=== PATIENT | female | born 1940 | race Caucasian/White ===

== ENCOUNTER 2023-02-16 10:55 | Outpatient (OUT) | payer MEDICARE, SELFPAY ==
[2023-02-16 11:47] LABS: Estimated Average Glucose 103 mg/dL; Glycohemoglobin A1C 5.2 % (4.5-6.2)
== END 2023-02-16 10:56 ==
LOC: LAB 11:02
PROVIDERS: PCP Family Medicine; Visit Provider Family Medicine
DX: E11.9 Type 2 diabetes mellitus without complications (principal)
CPT/HCPCS: 36415; 83036

== ENCOUNTER 2023-07-22 10:22 | Outpatient (OUT) | payer MEDICARE, SELFPAY ==
[2023-07-22 10:54] LABS: Bilirubin Urine NEGATIVE (NEGATIVE); Blood Urine NEGATIVE (NEGATIVE); Clarity Urine CLEAR (CLEAR); Color Urine LT. YELLOW (YELLOW); Glucose Urine UA NEGATIVE (NEGATIVE); Ketones Urine NEGATIVE (NEGATIVE); Leukocyte Esterase Urine SMALL (NEGATIVE); Nitrite Urine NEGATIVE (NEGATIVE); Protein Urine NEGATIVE (NEG/TRACE); Specific Gravity Urine >=1.030 (1.005-1.025); Urobilinogen Urine 0.2 EU/dL (0.2-1.0); pH Urine 5.5 (5.0-9.0)
[2023-07-22 10:54] LABS: Basophils Absolute Auto 0.1 10^3/uL (0.0-0.1); Basophils Percent Auto 0.8 % (0.2-2.0); Eosinophils Absolute Auto 0.6 10^3/uL (0.0-0.7); Eosinophils Percent Auto 9.2 % (0.9-7.0); Hematocrit 33.1 % (36.0-48.0); Hemoglobin 10.9 g/dL (12.0-16.0); Immature Granulocytes Abs Auto 0.03 10^3/uL (0.00-0.03); Immature Granulocytes Pct Auto 0.5 % (0.0-0.5); Lymphocytes Absolute Auto 1.7 10^3/uL (1.2-3.8); Lymphocytes Percent Auto 25.3 % (20.5-60.0); Mean Corpuscular HGB Conc 32.9 g/dL (29.9-35.2); Mean Corpuscular Hemoglobin 30.7 pg (26.7-34.0); Mean Corpuscular Volume 93.2 fL (81.0-99.0); Mean Platelet Volume 9.7 fL (9.5-13.5); Monocytes Absolute Auto 0.7 10^3/uL (0.3-0.8); Monocytes Percent Auto 11.1 % (1.7-12.0); Neutrophils Absolute Auto 3.5 10^3/uL (1.4-6.5); Neutrophils Percent Auto 53.1 % (43.0-75.0); Platelet Count 272 10^3/uL (150-450); Red Blood Count 3.55 10^6/uL (4.20-5.40); Red Cell Distribution Width 12.8 % (11.0-15.0); White Blood Count 6.5 10^3/uL (4.0-11.0)
[2023-07-22 11:05] LABS: Microalbumin Urine Random 4.7 mg/dL (<=30.0)
[2023-07-22 11:07] LABS: Estimated Average Glucose 103 mg/dL; Glycohemoglobin A1C 5.2 % (4.5-6.2)
[2023-07-22 11:08] LABS: Bacteria Urine TRACE #/HPF (NONE SEEN); Cast Seen? NONE SEEN #/LPF (NONE SEEN); Crystals Seen? None Seen #/HPF (None Seen); Mucus Urine NONE SEEN (NONE SEEN); RBC Urine 0-2 #/HPF (0-2); Squamous Epithelial Cell Urine RARE #/LPF (NONE/RARE)
[2023-07-22 11:09] LABS: Alanine Aminotransferase 27 U/L (14-59); Albumin Level 3.5 g/dL (3.4-5.0); Alkaline Phosphatase 68 U/L (46-116); Anion Gap 13.6; Aspartate Amino Transferase 18 U/L (15-37); BUN Creatinine Ratio 22.7; Bilirubin Total 0.3 mg/dL (0.2-1.0); Calcium 8.5 mg/dL (8.5-10.1); Carbon Dioxide 29.6 mmol/L (21.0-32.0); Chloride 103 mmol/L (98-107); Chol HDL Ratio 3.1; Cholesterol 251 mg/dL (<=200); Estimated GFR (African America 40 (>=60); Estimated GFR (Non-African Ame 33 (>=60); Globulin 3.6 g/dL; Glucose 98 mg/dL (74-106); HDL Cholesterol 82 mg/dL (40-60); Potassium 4.2 mmol/L (3.5-5.1); Sodium 142 mmol/L (136-145); Total Protein 7.1 g/dL (6.4-8.2); Triglycerides 51 mg/dL (<=150); VLDL CHOLESTEROL 10.2 mg/dL
== END 2023-07-22 10:23 | disposition home or self-care (01) ==
LOC: LAB 10:26
PROVIDERS: PCP Nurse Practitioner; Visit Provider Nurse Practitioner
DX: E11.9 Type 2 diabetes mellitus without complications (principal); I10 Essential (primary) hypertension; M54.50 Low back pain, unspecified; Z79.1 Long term (current) use of non-steroidal anti-inflammatories (NSAID)
CPT/HCPCS: 36415; 80053; 80061; 81001; 82043; 83036; 85025

== ENCOUNTER 2024-03-01 07:57 | Outpatient (OUT) | payer MEDICARE, SELFPAY ==
--- OUTSIDE RECORDS SUMMARY | 2024-03-01 08:03 | XMS_ITS | CCD ---
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 Role Phone REQUEST, DR NONE LISTED Admitting Unavaila ble REQUEST, NONE LISTED Consulting Unavaila ble REQUEST, DR PARIKH LISTED Attending Unavaila ble HOUSE, DR PINZON Primary Care Unavailable ROBERT, DEANGELO Admitting Unavailable HOUSE, DR PINZON Primary Care Unavailable ROBERT, DEANGELO Consulting Unavailable ROBERT, DEANGELO Attending Unavailable HOWIE, JUAN Andrew Consulting Unavailable HOUSE, DR PINZON Primary Care Unavailable HOWIE, JUAN Andrew Attending Unavailable HOWIE, JUAN Andrew Admitting Unavailable GREESE, MELI HERRERA Consulting Unavailable CLINTON, WILEY Attending Unavailable HOUSE, DR PINZON Primary Care Unavailable CLINTON, WILEY Admitting Unavailable FEDERICO, BRITTANI Consulting Unavailable CLINTON, WILEY Consulting Unavailable Evans, Jeremiah Consulting Unavailable HOUSE, DR PINZON Attending Unavailable HOUSE, DR PINZON Admitting Unavailable HOUSE, DR PINZON Primary Care Unavailable HOUSE, DR PINZON Consulting Unavailable REQUEST, NONE LISTED Admitting Unavaila ble REQUEST, DR PARIKH LISTED Consulting Unavaila ble REQUEST, DR PARIKH LISTED Attending Unavaila ble HOUSE, DR PINZON Primary Care Unavailable CLAUDIAHMEGHANA, JAYCOB Attending Unavailable AICHMEGHANA, JAYCOB Attending Unavailable PETITTI, WILLARD Marcano Attending Unavailable Allergies Allergy Classification Reported Allergen(s) Allergy Type Date of Onset Reaction(s) Facility (1 source) Adhesive agent Drug allergy (disorder) 07-02-2014 [facility] Repository Problems Active Problems Problem Classification Problem Date Documented Da te Episodic/Chronic Diabetes mellitus without complication (1 source) 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s; Translations: [TYPE 2 DM WITHOUT COMPLICATIONS] Onset: 02-18-2021 Chronic Essential hypertension (1 source) Essential (primary) hypertension; Translations: [ESSENTIAL PRIMARY HYPERTENSION] Onset: 02-18-2021 Chronic Immunizations and screening for infectious disease (4 sources) Encounter for immunization; Translations: [ENCOUNTER FOR IMMUNIZATION] Onset: 07-15-2021 Episodic Spondylosis; intervertebral disc disorders; other back problems (1 source) Spondylosis without myelopathy or radiculopathy, lumbar region; Translations: [SPONDYLS W/O MYELO-/RADICULOP LUMB] Onset: 02-18-2021 Chronic Past or Other Problems Problem Classification Problem Date Documented Da te Episodic/Chronic Abdominal pain (1 source) Unspecified abdominal pain; Translations: [UNSPECIFIED ABDOMINAL PAIN] Onset: 02-18-2021 Episodic Fluid and electrolyte disorders (1 source) Dehydration; Translations: [DEHYDRATION] Onset: 02-18-2021 Episodic Genitourinary symptoms and ill-defined conditions (1 source) Personal history of urinary (tract) infections; Translations: [PERS HX URINARY TRACT INFECTIONS] Onset: 02-21-2021 Episodic Malaise and fatigue (1 source) Weakness; Translations: [WEAKNESS] Onset: 02-18-2021 Episodic Other aftercare (1 source) care home (current) use of aspirin; Translations: [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 USE OF ASPIRIN] Onset: 02-18-2021 Episodic Other aftercare (1 source) Other chcf (current) drug therapy; Translations: [OTH 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 DRUG THERAPY] Onset: 02-18-2021 Episodic Other aftercare (1 source) 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; Translations: [SENIOR CARE USE ORAL HYPOGLYCEMIC DX] Onset: 02-18-2021 Episodic Other gastrointestinal disorders (3 sources) Diarrhea, unspecified; Translations: [DIARRHEA UNSPECIFIED] Onset: 02-19-2021 Episodic Residual codes; unclassified (1 source) Acquired absence of other specified parts of digestive tract; Translations: [ACQ ABSENCE OTH PART DIGESTV TRACT] Onset: 02-18-2021 Episodic Residual codes; unclassified (1 source) Acquired absence of both cervix and uterus; Translations: [ACQUIRED ABSENCE BOTH CERVIX AND UTERUS] Onset: 02-18-2021 Episodic Urinary tract infections (5 sources) Urinary tract infection, site not specified; Translations: [UTI SITE NOT SPECIFIED] Onset: 02-18-2021 Episodic Viral infection (1 source) Viral infection, unspecified; Translations: [VIRAL INFECTION UNSPECIFIED] Onset: 02-21-2021 Episodic Results Test Name Value Interpretation Reference Range Facil ity CULTURE URINEon 03-11-2021 CULTURE URINE Culture Observations : LIGHT GROWTH OF MIXED GENITAL NASIR. NO POTENTIAL PATHOGENS SEEN. Normal [facility] Comment on above: Performed By: #### C BC #### [facility] [address] [place] [address] Justina Jovita UA RANDOM W/MICROSCOPICon BACTERIA TRACE Abnormal NONE SEEN [facility] Comment on above: Performed By: #### C BC #### [facility] [address] [place] [address] Justina Jovita Bilirubin Ql (U) Negative Normal NEGATIVE [facility] Comment on above: Performed By: #### C BC #### [facility] [address] [place] [address] Justina Jovita CAST NONE SEEN Normal NONE SEEN [facility] Comment on above: Performed By: #### C BC #### [facility] [address] [place] [address] Justina Jovita Clarity (U) SL CLOUDY Abnormal CLEAR [facility] Comment on above: Performed By: #### C BC #### [facility] [address] [place] [address] Justina Jovita Color (U) LT. YELLOW Normal YELLOW [facility] Comment on above: Performed By: #### C BC #### [facility] [address] [place] [address] Justina Jovita Crystals LM Nom (Urine sed) NONE SEEN Normal NONE SEEN [facility] Comment on above: Performed By: #### C BC #### [facility] [address] [place] [address] Justina Jovita Epithelial cells LM Ql (Urine sed) FEW Abnormal NONE SEEN /RARE [facility] Comment on above: Performed By: #### C BC #### [facility] [address] [place] [address] Justina Jovita Glucose Ql (U) Negative Normal NEGATIVE [facility] Comment on above: Performed By: #### C BC #### [facility] [address] [place] [address] Justina Jovita Hemoglobin Ql (U) Negative Normal NEGATIVE [facility] Comment on above: Performed By: #### C BC #### [facility] [address] [place] [address] Justina Jovita Ketones Ql (U) Negative Normal NEGATIVE [facility] Comment on above: Performed By: #### C BC #### [facility] [address] [place] [address] Justina Jovita LEUKOCYTES SMALL Abnormal NEGATIVE [facility] Comment on above: Performed By: #### C BC #### [facility] [address] [place], [place] [address] Justina Jovita MUCOUS SMALL Abnormal NONE SEEN [facility] Comment on above: Performed By: #### C BC #### [facility] [address] [place] [address] Justina Jovita Nitrite Ql (U) Negative Normal NEGATIVE [facility] Comment on above: Performed By: #### C BC #### [facility] [address] [place] [address] Justina Jovita pH (U) 6.5 [pH] Normal 5-9 [facility] Comment on above: Performed By: #### C BC #### [facility] [address] [place] [address] Justina Jovita RBC 0-2 Normal 0-2 [facility] Comment on above: Performed By: #### C BC #### [facility] [address] [place] [address] Justina Jovita SPEC GRAVITY 1.020 Normal 1.005-<=1.025 [facility] Comment on above: Performed By: #### C BC #### [facility] [address] [place] [address] Justina Jovita UA PROTEIN Negative Normal NEGATIVE/ TRACE [facility] Comment on above: Performed By: #### C BC #### [facility] [address] [place] [address] Justina Jovita Urobilinogen Qn (U) 0.2 {Juan'U}/dL Normal 0.2 - 1. 0 [facility] Comment on above: Performed By: #### C BC #### [facility] [address] [place] [address] Justina Jovita WBC 5-10 Abnormal NONE SEEN [facility] Comment on above: Performed By: #### C BC #### [facility] [address] [place], [place] [address] Justina Jovita CBC AUTO DIFFon 02-19-2021 BASO # 0.0 103/ul Normal 0.0-0.1 [facility] Comment on above: Performed By: #### C BC #### [facility] [address] [place] [id number] Justina Jovita Basophils/100 WBC (Bld) 0.6 % Normal 0.2-2.0 [facility] Comment on above: Performed By: #### C BC #### [facility] [address] [place] [id number] Justina Jovita EO # 0.0 103/ul Normal 0.0-0.7 [facility] Comment on above: Performed By: #### C BC #### [facility] [address] [place], [place] [address] Justina Jovita Eosinophils/100 WBC (Bld) 0.8 % Critically low 0.9-7.0 [facility] Comment on above: Performed By: #### C BC #### [facility] [address] [id number] Justina Jovita Erythrocyte distribution width (RBC) [Ratio] 13.3 % Normal 11.0-15.0 [facility] Comment on above: Performed By: #### C BC #### [facility] [address] [place], [place] [address] Justina Jovita Hematocrit (Bld) [Volume fraction] 37.4 % Normal 36.0-48.0 [facility] Comment on above: Performed By: #### C BC #### [facility] [address] [id number] Justina Jovita Hemoglobin (Bld) [Mass/Vol] 12.7 g/dL Normal 12.0-16.0 [facility] Comment on above: Performed By: #### C BC #### [facility] [address] [place] [address] Justina Jovita IG # 0.02 10e3/ul Normal 0.00-0.03 [facility] Comment on above: Performed By: #### C BC #### [facility] [address] [id number] Justina Jovita IG % 0.4 % Normal 0.0-0.5 [facility] Comment on above: Performed By: #### C BC #### [facility] [address] [id number] Justina Jovita LYMPH # 0.7 103/ul Critically low 1.2-3.8 [facility] Comment on above: Performed By: #### C BC #### [facility] [address] [place], [place] [address] Justina Jovita Lymphocytes/100 WBC (Bld) 14.1 % Critically low 20.5-60.0 [facility] Comment on above: Performed By: #### C BC #### [facility] [address] [place], [place] [address] Justina Jovita MANUAL DIFF REQ NO Normal [facility] Comment on above: Performed By: #### C BC #### [facility] [address] [place], [place] [address] Justina Jovita MCH (RBC) [Entitic mass] 29.1 pg Normal 26.7-34.0 [facility] Comment on above: Performed By: #### C BC #### [facility] [address] [place], [place] [address] Justinajoselyn Hussein MCHC (RBC) [Mass/Vol] 34.0 g/dL Normal 29.9-35.2 [facility] Comment on above: Performed By: #### C BC #### [facility] [address] [place], [place] [address] Justina Jovita MCV (RBC) [Entitic vol] 85.6 fL Normal 81.0-99.0 [facility] Comment on above: Performed By: #### C BC #### [facility] [address] [place] [address] Justina Jovita MONO # 0.4 103/ul Normal 0.3-0.8 [facility] Comment on above: Performed By: #### C BC #### [facility] [address] [id number] Justina Jovita Monocytes/100 WBC (Bld) 7.4 % Normal 1.7-12.0 [facility] Comment on above: Performed By: #### C BC #### [facility] [address] [place], [place] [address] Justina Jovita NEUT # 3.8 103/ul Normal 1.4-6.5 [facility] Comment on above: Performed By: #### C BC #### [facility] [address] [place], [place] [address] Justina Jovita Neutrophils/100 WBC (Bld) 76.7 % Critically high 43.0-75.0 [facility] Comment on above: Performed By: #### C BC #### [facility] [address] [place], [place] [address] Justinajoselyn Chairezen Platelet mean volume (Bld) [Entitic vol] 9.5 fL Normal 9.5-13.5 [facility] Comment on above: Performed By: #### C BC #### [facility] [address] [place], [place] [address] Justina Jovita PLT 259 103/ul Normal 150-450 [facility] Comment on above: Performed By: #### C BC #### [facility] [address] [place], [place] [address] Justina Jovita RBC 4.37 106/ul Normal 4.20-5.40 [facility] Comment on above: Performed By: #### C BC #### [facility] [address] [place], [place] [address] Justina Jovita WBC 5.0 103/ul Normal 4.0-11.0 [facility] Comment on above: Performed By: #### C BC #### [facility] [address] [place], [place] [address] Justina Jovita ER URINE PROFILEon 1 Bilirubin Ql (U) Negative Normal NEGATIVE [facility] Comment on above: Performed By: #### E RUR #### [facility] [address] [place], [place] [address] Justina Jovita Clarity (U) CLEAR Normal CLEAR [facility] Comment on above: Performed By: #### E RUR #### [facility] [address] [place], [place] [address] Justina Jovita Color (U) LT. YELLOW Normal YELLOW [facility] Comment on above: Performed By: #### E RUR #### [facility] [address] [place], [place] [address] Justina Jovita ERUAHD A micrscopic examination will be performed if indicated. Normal [facility] Comment on above: Performed By: #### E RUR #### [facility] [address] [place] [address] Justina Jovita Glucose Ql (U) Negative Normal NEGATIVE [facility] Comment on above: Performed By: #### E RUR #### [facility] [address] [place] [address] Justina Jovita Hemoglobin Ql (U) Negative Normal NEGATIVE [facility] Comment on above: Performed By: #### E RUR #### [facility] [address] [place] [address] Justina Jovita Ketones Ql (U) TRACE Abnormal NEGATIVE [facility] Comment on above: Performed By: #### E RUR #### [facility] [address] [place] [address] Justina Jovita LEUKOCYTES Negative Normal NEGATIVE [facility] Comment on above: Performed By: #### E RUR #### [facility] [address] [place] [address] Justina Jovita Nitrite Ql (U) Negative Normal NEGATIVE [facility] Comment on above: Performed By: #### E RUR #### [facility] [address] [place] [address] Justina Jovita pH (U) 5.0 [pH] Normal 5-9 [facility] Comment on above: Performed By: #### E RUR #### [facility] [address] [place] [address] Justina Jovita SPEC GRAVITY >=1.030 Abnormal 1.005-<=1.025 [facility] Comment on above: Performed By: #### E RUR #### [facility] [address] [id number] Justina Jovita UA PROTEIN Negative Normal NEGATIVE/ TRACE [facility] Comment on above: Performed By: #### E RUR #### [facility] [address] [place], [place] [address] Justina Jovita UR MICRO IND NOT INDICATED Normal [facility] Comment on above: Performed By: #### E RUR #### [facility] [address] [place], [place] [address] Justina Jovita Urobilinogen Qn (U) 0.2 {Juan'U}/dL Normal 0.2 - 1. 0 [facility] Comment on above: Performed By: #### E RUR #### [facility] [address] [place], [place] [address] Justina Jovita PROF CHEM 8 (BAS METB)on Anion gap [Moles/Vol] 15.2 mmol/L Normal [facility] Comment on above: Performed By: #### B MP #### [facility] [address] [place], [place] [address] Justina Jovita Calcium [Mass/Vol] 9.3 mg/dL Normal 8.4-10.2 [facility] Comment on above: Performed By: #### B MP #### [facility] [address] [place] [address] Justina Jovita Chloride [Moles/Vol] 102 mmol/L Normal 98-107 [facility] Comment on above: Performed By: #### B MP #### [facility] [address] [place] [address] Justina Jovita CO2 [Moles/Vol] 28.5 mmol/L Normal 22.0-30.0 [facility] Comment on above: Performed By: #### B MP #### [facility] [address] [place], [place] [address] Justina Jovita Creatinine [Mass/Vol] 1.35 mg/dL Critically high 0.52-1.04 [facility] Comment on above: Performed By: #### B MP #### [facility] [address] [id number] Justina Jovita EGFR-AF PANAMANIAN 46 mL/min/1.73m2 Critically low >=60 [facility] Comment on above: Performed By: #### B MP #### [facility] [address] [address] Justina Jovita EGFR-NON AF PANAMANIAN 38 mL/min/1.73m2 Critically low >=60 [facility] Comment on above: Performed By: #### B MP #### [facility] [address] [id number] Justina Jovita Glucose [Mass/Vol] 121 mg/dL Critically high 74-106 [facility] Comment on above: Performed By: #### B MP #### [facility] [address] [place] [address] Justina Jovita Potassium [Moles/Vol] 3.7 mmol/L Normal 3.4-5.0 [facility] Comment on above: Performed By: #### B MP #### [facility] [address] [place] [address] Justina Jovita Sodium [Moles/Vol] 142 mmol/L Normal 137-145 [facility] Comment on above: Performed By: #### B MP #### [facility] [address] [place], [place] [address] Justina Jovita Urea nitrogen [Mass/Vol] 12.0 mg/dL Normal 7.0-17.0 [facility] Comment on above: Performed By: #### B MP #### [facility] [address] [id number] Justina Jovita Urea nitrogen/Creatinine [Mass ratio] 8.9 mg/mg Normal [facility] Comment on above: Performed By: #### B MP #### [facility] [address] [place], [place] [address] Justina Jovita CBC AUTO DIFFon 02-16-2021 BASO # 0.0 103/ul Normal 0.0-0.1 [facility] Comment on above: Performed By: #### C BC #### [facility] [address] [place], [place] [address] Justina Jovita Basophils/100 WBC (Bld) 0.6 % Normal 0.2-2.0 [facility] Comment on above: Performed By: #### C BC #### [facility] [address] [place] [address] Justina Jovita EO # 0.1 103/ul Normal 0.0-0.7 [facility] Comment on above: Performed By: #### C BC #### [facility] [address] [place] [address] Justina Jovita Eosinophils/100 WBC (Bld) 1.8 % Normal 0.9-7.0 [facility] Comment on above: Performed By: #### C BC #### [facility] [address] [place] [address] Justina Jovita Erythrocyte distribution width (RBC) [Ratio] 13.3 % Normal 11.0-15.0 [facility] Comment on above: Performed By: #### C BC #### [facility] [address] [place] [address] Justina Jovita Hematocrit (Bld) [Volume fraction] 37.7 % Normal 36.0-48.0 [facility] Comment on above: Performed By: #### C BC #### [facility] [address] [place] [address] Justina Jovita Hemoglobin (Bld) [Mass/Vol] 13.0 g/dL Normal 12.0-16.0 [facility] Comment on above: Performed By: #### C BC #### [facility] [address] [place] [address] Justina Jovita IG # 0.02 10e3/ul Normal 0.00-0.03 [facility] Comment on above: Performed By: #### C BC #### [facility] [address] [place] [address] Justina Jovita IG % 0.3 % Normal 0.0-0.5 [facility] Comment on above: Performed By: #### C BC #### [facility] [address] [place] [address] Justina Jovita LYMPH # 1.5 103/ul Normal 1.2-3.8 [facility] Comment on above: Performed By: #### C BC #### [facility] [address] [place], [place] [address] Justina Jovita Lymphocytes/100 WBC (Bld) 23.4 % Normal 20.5-60.0 [facility] Comment on above: Performed By: #### C BC #### [facility] [address] [place], [place] [address] Justina Jovita MANUAL DIFF REQ NO Normal [facility] Comment on above: Performed By: #### C BC #### [facility] [address] [place], [place] [address] Justina Jovita MCH (RBC) [Entitic mass] 29.5 pg Normal 26.7-34.0 [facility] Comment on above: Performed By: #### C BC #### [facility] [address] [place] [address] Justinajoselyn Chairezen [facility] (RBC) [Mass/Vol] 34.5 g/dL Normal 29.9-35.2 [facility] Comment on above: Performed By: #### C BC #### [facility] [address] [place], [place] [address] Justina Jovita MCV (RBC) [Entitic vol] 85.5 fL Normal 81.0-99.0 [facility] Comment on above: Performed By: #### C BC #### [facility] [address] [place], [place] [address] Justina Jovita MONO # 0.7 103/ul Normal 0.3-0.8 [facility] Comment on above: Performed By: #### C BC #### [facility] [address] [place], [place] [address] Justina Jovita Monocytes/100 WBC (Bld) 10.3 % Normal 1.7-12.0 [facility] Comment on above: Performed By: #### C BC #### [facility] [address] [place] [address] Justina Jovita NEUT # 4.2 103/ul Normal 1.4-6.5 [facility] Comment on above: Performed By: #### C BC #### [facility] [address] [place], [place] [address] Justina Hussein Neutrophils/100 WBC (Bld) 63.6 % Normal 43.0-75.0 [facility] Comment on above: Performed By: #### C BC #### [facility] [address] [place], [place] [address] Justina Hussein Platelet mean volume (Bld) [Entitic vol] 9.9 fL Normal 9.5-13.5 [facility] Comment on above: Performed By: #### C BC #### [facility] [address] [place], [place] [address] Ujstinajoselyn Chairezen PLT 338 103/ul Normal 150-450 [facility] Comment on above: Performed By: #### C BC #### [facility] [address] [place] [address] Justina Jovita RBC 4.41 106/ul Normal 4.20-5.40 [facility] Comment on above: Performed By: #### C BC #### [facility] [address] [place] [address] Justina Hussein WBC 6.6 103/ul Normal 4.0-11.0 [facility] Comment on above: Performed By: #### C BC #### [facility] [address] [place] [address] ABD/PELVIS WO CONon 02-16 CT ABD/PELVIS WO CON CT ABDOMEN AND PELVIS WITHOUT CONTRAST: INDICATION: General weakness, nausea vomiting and diarrhea. COMPARISON: None. TECHNIQUE: Helical CT images of the abdomen and pelvis were obtained without intravenous contrast. Dose reduction techniques were achieved by using automated exposure control and/or adjustment of mA and/or kV according to patient size and/or use of iterative reconstruction technique. FINDINGS: LOWER CHEST: Normal. LIVER: Mild intrahepatic biliary GALLBLADDER AND BILIARY SYSTEM: Status-post cholecystectomy. Dilated common bile duct measuring 14 mm. SPLEEN: Normal. PANCREAS: Normal. ADRENAL GLANDS: Normal. KIDNEYS AND URETERS: Mild bilateral renal cortical scarring but no hydronephrosis or stones. VASCULATURE: Diffuse atherosclerotic calcification of the abdominal aorta, iliac and femoral arteries. RETROPERITONEUM AND LYMPH NODES: Normal, with no lymphadenopathy. GASTROINTESTINAL TRACT/MESENTERY: Mild to moderate nonspecific gastric distention. Small diverticulum off the second portion of the duodenum measuring 11 mm. There are few loops of small bowel within the central abdomen which appear to show wall thickening although evaluation is limited due to lack of IV contrast. Normal mesentery/peritoneum. Status post appendectomy. BLADDER: Normal. REPRODUCTIVE SYSTEM: Normal uterus and adnexa. BODY WALL: Normal. BONES: Right hip arthroplasty in place. Severe degenerative changes of the left hip. Postsurgical changes compatible with posterior and interbody fusion at L3-L4 and laminectomy at L3. Severe degenerative changes of the lumbar spine. Right hip arthroplasty in place. IMPRESSION: 1. Limited due to lack of IV contrast but possible wall thickening involving loops of small bowel. Infectious or inflammatory enteritis cannot be excluded. 2. No other acute process. 3. Status post cholecystectomy with likely associated biliary ductal dilatation. 4. Small duodenal diverticulum. 5. Mild to moderate nonspecific gastric distention. 6. Extensive atherosclerotic calcification. Electronically authenticated by: BRITTANI CABALLERO Date: 2021-02-16 17:59 Normal [facility] CULTURE URINEon 02-16-2021 CULTURE URINE Culture Observations : LIGHT GROWTH OF MIXED GENITAL NASIR. NO POTENTIAL PATHOGENS SEEN. Normal [facility] Comment on above: Performed By: #### Farhan ENCARNACION #### [facility] [address] [place] [address] Justina Jovita ER URINE PROFILEon 1 Bilirubin Ql (U) Negative Normal NEGATIVE [facility] Comment on above: Performed By: #### DESIREE BRITO #### [facility] [address] [place] [address] Justina Jovita Clarity (U) CLEAR Normal CLEAR [facility] Comment on above: Performed By: #### DESIREE BRITO #### [facility] [address] [place] [address] Justina Jovita Color (U) YELLOW Normal YELLOW [facility] Comment on above: Performed By: #### DESIREE BRITO #### [facility] [address] [place] [address] Justina Jovita ERUAHD A micrscopic examination will be performed if indicated. Normal [facility] Comment on above: Performed By: #### DESIREE BRITO #### [facility] [address] [place] [address] Justina Jovita Glucose Ql (U) Negative Normal NEGATIVE [facility] Comment on above: Performed By: #### DESIREE BRITO #### [facility] [address] [place] [address] Justina Jovita Hemoglobin Ql (U) Negative Normal NEGATIVE [facility] Comment on above: Performed By: #### DESIREE BRITO #### [facility] [address] [place] [address] Justina Jovita Ketones Ql (U) Negative Normal NEGATIVE [facility] Comment on above: Performed By: #### DESIREE BRITO #### [facility] [address] [place] [address] Justina Jovita LEUKOCYTES SMALL Abnormal NEGATIVE [facility] Comment on above: Performed By: #### DESIREE BRITO #### [facility] [address] [place] [address] Justina Jovita Nitrite Ql (U) Negative Normal NEGATIVE [facility] Comment on above: Performed By: #### DESIREE BRITO #### [facility] [address] [place] [address] Justina Jovita pH (U) 5.0 [pH] Normal 5-9 [facility] Comment on above: Performed By: #### DESIREE BRITO #### [facility] [address] [place] [address] Justina Jovita SPEC GRAVITY >=1.030 Abnormal 1.005-<=1.025 [facility] Comment on above: Performed By: #### DESIREE BRITO #### [facility] [address] [place] [address] Justina Jovita UA PROTEIN Negative Normal NEGATIVE/ TRACE [facility] Comment on above: Performed By: #### DESIREE BRITO #### [facility] [address] [place] [address] Justina Jovita UR MICRO IND INDICATED Normal [facility] [place] [facility] Comment on above: Performed By: #### E DESIREE CROSS #### [facility] [address] [place] [address] Justina Hussein Urobilinogen Qn (U) 0.2 {Juan'U}/dL Normal 0.2 - 1. 0 [facility] Comment on above: Performed By: #### E DESIREE CROSS #### [facility] [address] [place] [address] Justina Hussein LACTATE/LACTIC ACIDon 2020 Lactate [Moles/Vol] 3.5 mmol/L Critically high 0.7-2.0 [facility] Comment on above: Result Comment: test repeated, critical value verified Performed By: #### L ACT #### [facility] [address] [place] [address] Justina Hussein Lactate [Moles/Vol] 3.7 mmol/L Critically high 0.7-2.0 [facility] Comment on above: Result Comment: test repeated, critical value verified Performed By: #### C BC #### [facility] [address] [place] [address] Justina Hussein LIPASEon 02-16-2021 Lipase [Catalytic activity/Vol] 173.0 U/L Normal 23.0-300.0 [facility] Comment on above: Performed By: #### C BC #### [facility] [address] [place] [address] Justina Hussein POINT OF CARE GLUCOSEon 02-04 Glucose [Mass/Vol] 187 mg/dL Critically high 74-106 [facility] Comment on above: Performed By: #### P OCGLUC #### [facility] [address] [place] [address] Justina Hussein PROF 14(COMP METB)on 021 Albumin [Mass/Vol] 4.4 g/dL Normal 3.5-5.0 [facility] Comment on above: Performed By: #### C BC #### [facility] [address] [place], [place] [address] Justina Jovita Albumin/Globulin [Mass ratio] 1.1 {ratio} Normal [facility] Comment on above: Performed By: #### C BC #### [facility] [address] [place] [place] [id number] Justina Jovita ALP [Catalytic activity/Vol] 51 U/L Normal 38-126 [facility] Comment on above: Performed By: #### C BC #### [facility] [address] [place], [place] [address] Justina Jovita ALT [Catalytic activity/Vol] 32 U/L Normal 9-52 [facility] Comment on above: Performed By: #### C BC #### [facility] [address] [place], [place] [address] Justina Jovita Anion gap [Moles/Vol] 14.8 mmol/L Normal [facility] Comment on above: Performed By: #### C BC #### [facility] [address] [place] [address] Justina Jovita AST [Catalytic activity/Vol] 40 U/L Critically high 14-36 [facility] Comment on above: Performed By: #### C BC #### [facility] [address] [place], [place] [address] Justina Jovita Bilirubin [Mass/Vol] 0.7 mg/dL Normal 0.2-1.3 [facility] Comment on above: Performed By: #### C BC #### [facility] [address] [place], [place] [address] Justina Jovita Calcium [Mass/Vol] 9.6 mg/dL Normal 8.4-10.2 [facility] Comment on above: Performed By: #### C BC #### [facility] [address] [place], [place] [address] Justina Jovita Chloride [Moles/Vol] 99 mmol/L Normal 98-107 [facility] Comment on above: Performed By: #### C BC #### [facility] [address] [place] [address] Justina Jovita CO2 [Moles/Vol] 29.3 mmol/L Normal 22.0-30.0 [facility] Comment on above: Performed By: #### C BC #### [facility] [address] [place], [place] [address] Justina Jovita Creatinine [Mass/Vol] 1.64 mg/dL Critically high 0.52-1.04 [facility] Comment on above: Performed By: #### C BC #### [facility] [address] [place], [place] [address] Justina Jovita EGFR-AF PANAMANIAN 36 mL/min/1.73m2 Critically low >=60 [facility] Comment on above: Performed By: #### C BC #### [facility] [address] [place], [place] [address] Justina Jovita EGFR-NON AF PANAMANIAN 30 mL/min/1.73m2 Critically low >=60 [facility] Comment on above: Performed By: #### C BC #### [facility] [address] [place], [place] [address] Justina Jovita Globulin (S) [Mass/Vol] 4.0 g/dL Normal [facility] Comment on above: Performed By: #### C BC #### [facility] [address] [place], [place] [address] Justina Jovita Glucose [Mass/Vol] 185 mg/dL Critically high 74-106 [facility] Comment on above: Performed By: #### C BC #### [facility] [address] [place], [place] [address] Justina Jovita Potassium [Moles/Vol] 4.1 mmol/L Normal 3.4-5.0 [facility] Comment on above: Performed By: #### C BC #### [facility] [address] [place], [place] [address] Justina Jovita Protein [Mass/Vol] 8.4 g/dL Critically high 6.1-8.2 [facility] Comment on above: Performed By: #### C BC #### [facility] [address] [place], [place] [address] Justina Jovita Sodium [Moles/Vol] 139 mmol/L Normal 137-145 [facility] Comment on above: Performed By: #### C BC #### [facility] [address] [place], [place] [address] Justina Hussein Urea nitrogen [Mass/Vol] 29.0 mg/dL Critically high 7.0-17.0 [facility] Comment on above: Performed By: #### C BC #### [facility] [address] [place], [place] [address] Justina Hussein Urea nitrogen/Creatinine [Mass ratio] 17.7 mg/mg Normal [facility] Comment on above: Performed By: #### C BC #### [facility] [address] [place], [place] [address] Justina Hussein PROTIMEon 02-16-2021 INR Coag (PPP) [Relative time] 1.05 {INR} Normal [facility] Comment on above: Performed By: #### P TT, PT #### [facility] [address] [place] [address] Justina Hussein INR GUIDELINES SEE BELOW Normal [facility] Comment on above: Result Comment: ROSELIA RED INR: 2.0 - 3.0 CONDITIONS NOT LISTED BELOW 2.5 - 3.5 FOR PROSTHETIC HEART VALVE REPLACEMENT 2.5 - 3.5 RECURRENT THROMBOSIS Performed By: #### P TT, PT #### [facility] [address] [place] [address] Justina Hussein PT Coag (PPP) [Time] 11.4 s Normal 9.0-11.6 [facility] Comment on above: Performed By: #### P TT, PT #### [facility] [address] [place] [address] Justina Hussein PTTon 02-16-2021 aPTT Coag (Bld) [Time] 24.1 s Normal 22.3-36.2 [facility] Comment on above: Performed By: #### P TT, PT #### [facility] [address] [place] [address] Justina Hussein TROPONIN, HIGH SENSITIVITYon 02-16-2021 HSTROP 6.2 pg/mL Normal 4.0-35.5 [facility] Comment on above: Result Comment: CUT- OFF POINTS HAVE BEEN ESTABLISHED BASED ON THE FOURTH UNIVERSAL DEFINITIONS OF MYOCARDIAL INFARCTION. THE UPPER REFERENCE LIMIT (URL) OF TROPONIN, DEFINED THE 99TH PERCENTILE OF cTnI DISTRIBUTION IN A REFERENCE POPULATION, HAS BEEN CONFIRMED THE DECISION THRESHOLD FOR NC DIAGNOSIS. Performed By: #### C BC #### [facility] [address] [place] [address] Justina Jovita URINE MICROSCOPIC ONLYon BACTERIA TRACE Abnormal NONE SEEN [facility] Comment on above: Performed By: #### LILIANA BRITORO #### [facility] [address] [place] [address] Justina Jovita Bacteria identified Cx Nom (U) INDICATED Normal [facility] Comment on above: Performed By: #### LILIANA BRITORO #### [facility] [address] [place] [address] Justina Jovita CAST SEEN Abnormal NONE SEEN [facility] Comment on above: Performed By: #### LILIANA BRITORO #### [facility] [address] [place] [address] Justina Jovita Crystals LM Nom (Urine sed) NONE SEEN Normal NONE SEEN [facility] Comment on above: Performed By: #### LILIANA BRITORO #### [facility] [address] [place] [address] Justina Jovita Epithelial cells LM Ql (Urine sed) FEW Abnormal NONE SEEN /RARE [facility] Comment on above: Performed By: #### LILIANA BRITORO #### [facility] [address] [place] [address] Justina Jovita MUCOUS NONE SEEN Normal NONE SEEN [facility] Comment on above: Performed By: #### LILIANA BRITORO #### [facility] [address] [place] [address] Justina Jovita RBC 2-5 Abnormal 0-2 [facility] Comment on above: Performed By: #### LILIANA BRITORO #### [facility] [address] [place] [address] Justina Jovita WBC 20-50 Abnormal NONE SEEN [facility] Comment on above: Performed By: #### LILIANA BRITORO #### [facility] [address] [place], [place] [address] Justina Hussein XR CHEST 2 Von 02-16-2021 XR CHEST 2 V EXAM: XR CHEST 2 V HISTORY: NAUSEA WITH VOMITING, UNSPECIFIED COMPARISON: None. TECHNIQUE: PA and lateral views FINDINGS: Lungs are clear. Cardiac silhouette is normal. No pleural effusion or pneumothorax. Degenerative changes both shoulders. No acute osseous findings. IMPRESSION: No acute process. Electronically authenticated by: JEREMIAH LAURA Date: 2021-02-16 17:49 Normal [facility] Encounters Encounter Date Encounter Type Care Provider Facility Start: 01-20-2024 End: 01-20-2024 ambulatory WILLARD MENENDEZ Not Available Start: 11-29-2023 End: 11-29-2023 ambulatory JAYCOB CURTIS Not Available Start: 10-26-2023 End: 10-26-2023 ambulatory JAYCOB KIRSTEN Not Available Start: 07-15-2021 End: 07-16-2021 ambulatory DEANGELO JONES Facility:[facility] Start: 03-11-2021 End: 03-12-[address] JEROMY INMAN Facility:[facility] Start: 02-19-2021 End: 02-19-2021 ambulatory JUAN DENISE Facility:[facility] Start: 02-16-2021 End: 02-16-2021 ambulatory MELI FREGOSO Facility:[facility] Start: 12-10-2020 End: 12-11-2020 ambulatory NONE LISTED REQUEST Facility:[facility] Start: 11-18-2020 End: 11-19-2020 ambulatory NONE LISTED REQUEST Facility:[facility] Payers Date Payer Category Payer Medicare [id number] 1961 Medicare [id number] 1961 Self-pay [id number] 1961 Unknown [id number] 1940 Unknown [id number] .. [id number] 1938 Unknown [id number] 10.22. [id number] 1938 Unknown [id number] 10.22.84 [id number] 1938 Unknown [id number] 2.16.84 [id number] 1938 Unknown [id number] 2.16.84 [id number] 1938 Unknown [id number] 2.16.84 [id number] Unknown [id number] 2.16.84 [id number] Unknown [id number] 2.16.84 [id number] Unknown [id number] 2.16.84 [id number] Summary Purpose Family History No Family History Records FoundNo Family History Records Found Advance Directives No Advanced Directives Records FoundNo Advanced Directives Records Found Additional Source Comments INFORMATION SOURCE (unrecogn ized section and content) DATE CREATED AUTHOR 08/11/2021 [facility] [place] [facility] DATE CREATED AUTHOR '[place] FAROOQ 01/22/2024 [facility] FOR RECORDS PERTAINING TO PATIENTS WHO ARE OR HAVE BEEN ENROLLED IN A CHEMICAL DEPENDENCY/SUBSTANCEABUSE PROGRAM, SOME INFORMATION MAY BE OMITTED. This clinical summary was aggregated from multiple sources. Caution should be exercised in using it in the provision of clinical care. This summary normalizes information from multiple sources, and as a consequence, information in this document may materially change the coding, format and clinical context of patient data. In addition, data may be omitted in some cases. CLINICAL DECISIONS SHOULD BE BASED ON THE PRIMARY CLINICAL RECORDS. [facility] [employer] provides no warranty or guarantee of the accuracy or completeness of information in this document.
[2024-03-01 08:43] LABS: Basophils Absolute Auto 0.1 10^3/uL (0.0-0.1); Basophils Percent Auto 0.7 % (0.2-2.0); Eosinophils Absolute Auto 0.4 10^3/uL (0.0-0.7); Hematocrit 35.6 % (36.0-48.0); Hemoglobin 12.2 g/dL (12.0-16.0); Immature Granulocytes Abs Auto 0.03 10^3/uL (0.00-0.03); Immature Granulocytes Pct Auto 0.4 % (0.0-0.5); Lymphocytes Absolute Auto 3.1 10^3/uL (1.2-3.8); Lymphocytes Percent Auto 41.2 % (20.5-60.0); Mean Corpuscular HGB Conc 34.3 g/dL (29.9-35.2); Mean Corpuscular Hemoglobin 29.7 pg (26.7-34.0); Mean Corpuscular Volume 86.6 fL (81.0-99.0); Mean Platelet Volume 10.5 fL (9.5-13.5); Monocytes Absolute Auto 0.7 10^3/uL (0.3-0.8); Monocytes Percent Auto 9.5 % (1.7-12.0); Neutrophils Absolute Auto 3.2 10^3/uL (1.4-6.5); Neutrophils Percent Auto 43.2 % (43.0-75.0); Platelet Count 352 10^3/uL (150-450); Red Blood Count 4.11 10^6/uL (4.20-5.40); Red Cell Distribution Width 13.4 % (11.0-15.0); White Blood Count 7.5 10^3/uL (4.0-11.0)
[2024-03-01 08:54] LABS: Creatinine Urine Random 412.63 mg/dL (20.00-300.00); Microalbum Creatinine Ratio Ur 9.9 mg/g (0.0-29.9); Microalbumin Urine Random 4.1 mg/dL (<=30.0)
[2024-03-01 08:56] LABS: Estimated Average Glucose 100 mg/dL; Glycohemoglobin A1C 5.1 % (4.5-6.2)
[2024-03-01 09:00] LABS: Alanine Aminotransferase 86 U/L (14-59); Albumin Globulin Ratio 1.2; Albumin Level 4.3 g/dL (3.4-5.0); Alkaline Phosphatase 110 U/L (46-116); Anion Gap 15.1; Aspartate Amino Transferase 35 U/L (15-37); BUN Creatinine Ratio 15.7; Bilirubin Total 0.6 mg/dL (0.2-1.0); Chloride 100 mmol/L (98-107); Chol HDL Ratio 2.3; Cholesterol 169 mg/dL (<=200); Estimated GFR (African America 19 (>=60); Estimated GFR (Non-African Ame 16 (>=60); Free T3 2.47 pg/mL (2.18-3.98); Globulin 3.5 g/dL; Glucose 112 mg/dL (74-106); HDL Cholesterol 72 mg/dL (40-60); Potassium 3.1 mmol/L (3.5-5.1); Sodium 139 mmol/L (136-145); Total Protein 7.8 g/dL (6.4-8.2); Triglycerides 106 mg/dL (<=150); VLDL CHOLESTEROL 21.2 mg/dL
[2024-03-01 09:03] LABS: Bilirubin Urine SMALL (NEGATIVE); Blood Urine NEGATIVE (NEGATIVE); Clarity Urine SL CLOUDY (CLEAR); Color Urine YELLOW (YELLOW); Glucose Urine UA NEGATIVE (NEGATIVE); Ketones Urine TRACE mg/dL (NEGATIVE); Leukocyte Esterase Urine SMALL (NEGATIVE); Nitrite Urine NEGATIVE (NEGATIVE); Protein Urine TRACE mg/dL (NEG/TRACE); Specific Gravity Urine >=1.030 (1.005-1.025); Urobilinogen Urine 0.2 EU/dL (0.2-1.0); pH Urine 5.5 (5.0-9.0)
[2024-03-01 09:04] LABS: Urine Microscopic Indicated YES
[2024-03-01 09:58] LABS: Bacteria Urine MODERATE #/HPF (NONE SEEN); Cast Seen? SEEN #/LPF (NONE SEEN); Crystals Seen? None Seen #/HPF (None Seen); Mucus Urine MODERATE (NONE SEEN); RBC Urine 0-2 #/HPF (0-2); Squamous Epithelial Cell Urine FEW #/LPF (NONE/RARE); Transitional Epi Cells Urine RARE #/LPF (NONE SEEN)
[2024-03-01 09:59] LABS: Hyaline Casts Urine FEW
[2024-03-01 10:00] LABS: Urine Culture Indicated YES
== END 2024-03-01 07:58 | disposition home or self-care (01) ==
LOC: LAB 07:59
PROVIDERS: PCP Nurse Practitioner; Visit Provider Nurse Practitioner
DX: E11.22 Type 2 diabetes mellitus with diabetic chronic kidney disease (principal); N18.32 Chronic kidney disease, stage 3b; R63.4 Abnormal weight loss; E78.49 Other hyperlipidemia; I12.9 Hypertensive chronic kidney disease with stage 1 through stage 4 chronic kidney disease, or unspecified chronic kidney disease; R82.90 Unspecified abnormal findings in urine
CPT/HCPCS: 36415; 80053; 80061; 81001; 82043; 82570; 83036; 84439; 84443; 84481; 85025; 87086

== ENCOUNTER 2024-05-05 09:46 | Outpatient (OUT) | payer MEDICARE, SELFPAY ==
--- OUTSIDE RECORDS SUMMARY | 2024-05-05 09:52 | XMS_ITS | CCD ---
Author Organization [facility] Care Team Providers Care Engineering Production Liaison Name Role Phone REQUEST, DR NONE LISTED Admitting Unavaila ble REQUEST, NONE LISTED Consulting Unavaila ble REQUEST, NONE LISTED Attending Unavaila ble HOUSE, DR PINZON Primary Care Unavailable ROBERT, DEANGELO Admitting Unavailable HOUSE, DR PINZON Primary Care Unavailable ROBERT, DEANGELO Consulting Unavailable ROBERT, DEANGELO Attending Unavailable HOWIE, JUAN Andrew Consulting Unavailable HOUSE, DR PINZON Primary Care Unavailable HOWIE, JUAN Andrew Attending Unavailable HOWIE, JUAN Andrew Admitting Unavailable ZENOBIA, MELI HERRERA Consulting Unavailable CLINTON, WILEY Attending Unavailable STORM, DR PINZON Primary Care Unavailable CLINTON, WILEY Admitting Unavailable FEDERICO, BRITTANI Consulting Unavailable CLINTON, WILEY Consulting Unavailable Evans, Jeremiah Consulting Unavailable HOUSE, DR PINZON Attending Unavailable HOUSE, DR PINZON Admitting Unavailable HOUSE, DR PINZON Primary Care Unavailable HOUSE, DR PINZON Consulting Unavailable REQUEST, NONE LISTED Admitting Unavaila ble REQUEST, NONE LISTED Consulting Unavaila ble REQUEST, NONE LISTED Attending Unavaila ble HOUSE, DR PINZON Primary Care Unavailable CAITLIN, TOMASA Marcano Referring Unavailable HOUSE, JEROMY Brown Primary Care Unavailable CAITLIN, TOMASA Marcano Attending Unavailable CAITLIN, TOMASA Marcano Referring Unavailable HOUSE, JEROMY Brown Primary Care Unavailable CAITLIN, TOMASA Marcano Referring Unavailable HOUSE, JEROMY Brown Primary Care Unavailable AICHHOLShailesh, JAYCOB Attending Unavailable AICHHOLZ, JAYCOB Attending Unavailable WILLARD MENENDEZ Attending Unavailable AICHHOLShailesh, JAYCOB Attending Unavailable CAITLIN, TOMASA Marcano Attending Unavailable CAITLIN, TOMASA Marcano Referring Unavailable ENEDINA PHELPS Attending Unavailable CAITLIN, TOMASA Marcano Referring Unavailable BRENNEN NAGEL Attending Unavailable AICHHOLShailesh, JAYCOB Attending Unavailable Allergies Allergy Classification Reported Allergen(s) Allergy Type Date of Onset Reaction(s) Facility (1 source) Adhesive agent Drug allergy (disorder) 4 [facility] Repository (1 source) Iodine; Translations: [IODINE] Drug Allergy 0 [facility] Repository (1 source) Pollen; Translations: [POLLEN EXTRACTS] Propensity to adverse reactions to drug (disorder) 0 [facility] Repository Problems Active Problems Problem Classification Problem Date Documented Da te Episodic/Chronic Diabetes mellitus without complication (2 sources) 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s; Translations: [TYPE 2 DM WITHOUT COMPLICATIONS] Onset: 02-18-2021 Chronic Essential hypertension (2 sources) Essential (primary) hypertension; Translations: [ESSENTIAL PRIMARY HYPERTENSION] [...] Onset: 02-18-2021 Episodic Other aftercare (1 source) half-way (current) use of aspirin; Translations: [OCCUPATIONAL HEALTH AND SAFETY ADVISER CURRENT USE OF ASPIRIN] Onset: 02-18-2021 Episodic Other aftercare (1 source) Other nursing home (current) drug therapy; Translations: [OTH SENIOR LIVING CURRENT DRUG THERAPY] Onset: 02-18-2021 Episodic Other aftercare (1 source) half-way (current) use of oral hypoglycemic drugs; Translations: [OCCUPATIONAL HEALTH AND SAFETY ADVISER USE ORAL HYPOGLYCEMIC DX] Onset: 02-18-2021 Episodic [...] Name Value Interpretation Reference Range Facil ity BASIC METABOLIC PANLon 04-21 Anion gap [Moles/Vol] 13 mmol/L Normal 5-15 [facility] Comment on above: Performed By: #### C BCA, BMP #### [facility] ([id number]) [address], [address] [place] [address] Calcium [Mass/Vol] 9.7 mg/dL Normal 8.5-10.5 [facility] Comment on above: Performed By: #### C BCA, BMP #### [facility] ([id number]) [address], [address] [place] [address] Chloride [Moles/Vol] 103 mmol/L Normal 98-109 [facility] Comment on above: Performed By: #### C BCA, BMP #### [facility] ([id number]) [address], [address] [place] [address] CO2 [Moles/Vol] 25 mmol/L Normal 22-32 [facility] Comment on above: Performed By: #### C BCA, BMP #### [facility] ([id number]) [address], [address] [place] [address] Creatinine [Mass/Vol] 1.43 mg/dL High 0.40-1.00 [facility] Comment on above: Result Comment: METH OD TRACEABLE TO IDMS STANDARD Performed By: #### C BCA, BMP #### [facility] ([id number]) [address], [address] [place] [address] GFR/1.73 sq M.predicted among non-blacks MDRD (S/P/Bld) [Vol rate/Area] 36 mL/min/{1.73_m2} Low >59 [facility] Comment on above: Result Comment: Reported eGFR is based on the CKD-EPI 2020 equation that does not use a race coefficient. Performed By: #### C BCA, BMP #### [facility] ([id number]) [address], [address] [place] [address] Glucose [Mass/Vol] 122 mg/dL High 65-99 [facility] Comment on above: Performed By: #### C BCA, BMP #### [facility] ([id number]) [address] [address] [place] [address] Potassium [Moles/Vol] 3.7 mmol/L Normal 3.5-5.0 [facility] Comment on above: Performed By: #### C BCA, BMP #### [facility] ([id number]) [address], [address] [place] [address] Sodium [Moles/Vol] 141 mmol/L Normal 134-146 [facility] Comment on above: Performed By: #### C BCA, BMP #### [facility] ([id number]) [address] [address] [place] [address] Urea nitrogen [Mass/Vol] 30 mg/dL High 5-27 [facility] Comment on above: Performed By: #### C BCA, BMP #### [facility] ([id number]) [address] [address] [place] [address] CBC AND AUTO DIFFon 04-21-20 24 ABSOLUTE BASOPHIL 0.1 X10E9/L Normal 0.0-0.2 [facility] Comment on above: Performed By: #### C BCA, BMP #### [facility] ([id number]) [address], [address] [place] [address] ABSOLUTE NEUTROPHIL 3.4 X10E9/L Normal 1.5-6.6 [facility] Comment on above: Performed By: #### C LARRY, BMP #### [facility] ([id number]) [address], [address] [place] [address] Basophils/100 WBC (Bld) 1.0 % Normal [facility] Comment on above: Performed By: #### C LARRY, BMP #### [facility] ([id number]) [address], [address] [place] [address] Eosinophils (Bld) [#/Vol] 0.2 10*3/uL Normal 0.0-0.4 [facility] Comment on above: Performed By: #### C LARRY, BMP #### [facility] ([id number]) [address], [address] [place] [address] Eosinophils/100 WBC (Bld) 4.3 % Normal [facility] Comment on above: Performed By: #### C LARRY, BMP #### [facility] ([id number]) [address], [address] [place] [address] Erythrocyte distribution width (RBC) [Ratio] 15.3 % High 11.5-15.0 [facility] Comment on above: Performed By: #### C LARRY, BMP #### [facility] ([id number]) [address], [address] [place] [address] Hematocrit (Bld) [Volume fraction] 32.6 % Low 35-47 [facility] Comment on above: Performed By: #### C LARRY, BMP #### [facility] ([id number]) [address], [address] [place] [address] Hemoglobin (Bld) [Mass/Vol] 11.1 g/dL Low 11.7-15.5 [facility] Comment on above: Performed By: #### C LARRY, BMP #### [facility] ([id number]) [address], [address] [place] [address] Lymphocytes (Bld) [#/Vol] 1.1 10*3/uL Normal 1.0-3.5 [facility] Comment on above: Performed By: #### C LARRY, BMP #### [facility] ([id number]) [address], [address] [place] [address] Lymphocytes/100 WBC (Bld) 20.0 % Normal [facility] Comment on above: Performed By: #### C LARRY, BMP #### [facility] ([id number]) [address] [place] [address] MCH (RBC) [Entitic mass] 31.0 pg Normal 27-34 [facility] Comment on above: Performed By: #### C LARRY, BMP #### [facility] ([id number]) [address], [address] [place] [address] MCHC (RBC) [Mass/Vol] 34.0 g/dL Normal 32-36 [facility] Comment on above: Performed By: #### C LARRY, BMP #### [facility] ([id number]) [address] [place] [address] MCV (RBC) [Entitic vol] 91 fL Normal 80-100 [facility] Comment on above: Performed By: #### C BCA, BMP #### [facility] ([id number]) [address], [address] [place] [address] Monocytes (Bld) [#/Vol] 0.6 10*3/uL Normal 0-0.9 [facility] Comment on above: Performed By: #### C BCA, BMP #### [facility] ([id number]) [address], [address] [place] [address] Monocytes/100 WBC (Bld) 11.7 % Normal [facility] Comment on above: Performed By: #### C LARRY, BMP #### [facility] ([id number]) [address], [facility] [address] [place] [address] Neutrophils/100 WBC (Bld) 63.0 % Normal [facility] Comment on above: Performed By: #### Farhan JUAREZ, BMP #### [facility] ([id number]) [address], [address] [place] [address] Platelet mean volume (Bld) [Entitic vol] 8.3 fL Normal 7-12 [facility] Comment on above: Performed By: #### Farhan JUAREZ, BMP #### [facility] ([id number]) [address], [address] [address] Platelets (Bld) [#/Vol] 241 10*3/uL Normal 150-450 [facility] Comment on above: Performed By: #### Farhan JUAREZ, BMP #### [facility] ([id number]) [address], [facility] [address] [place] [address] RBC COUNT 3.58 X10E12/L Low 3.80-5.20 [facility] Comment on above: Performed By: #### Farhan BCA, BMP #### [facility] ([id number]) [address], [facility] [address] [place] [address] WBC (Bld) [#/Vol] 5.4 10*3/uL Normal 4.0-11.0 [facility] Comment on above: Performed By: #### C BCA, BMP #### [facility] ([id number]) [address] [address] CULTURE URINEon 03-11-2021 CULTURE URINE Culture Observations : LIGHT GROWTH OF MIXED GENITAL NAISR. NO POTENTIAL PATHOGENS SEEN. Normal [facility] Comment on above: Performed By: #### Farhan BC #### [facility] [address] [place] [address] Justina Joivta UA RANDOM W/MICROSCOPICon BACTERIA TRACE Abnormal NONE SEEN [facility] Comment on above: Performed By: #### C BC #### [facility] [address] [place] [address] Justina Jovita Bilirubin Ql (U) Negative Normal NEGATIVE [facility] Comment on above: Performed By: #### C BC #### [facility] [address] [place] [address] Justian Jovita CAST NONE SEEN Normal NONE SEEN [facility] Comment on above: Performed By: #### C BC #### [facility] [address] [place], [place] [address] Justina Jovita Clarity (U) SL CLOUDY Abnormal CLEAR [facility] Comment on above: Performed By: #### C BC #### [facility] [address] [place] [address] Justina Jovita Color (U) LT. YELLOW Normal YELLOW [facility] Comment on above: Performed By: #### C BC #### [facility] [address] [place] [address] Justina Jovita Crystals LM Nom (Urine sed) NONE SEEN Normal NONE SEEN [facility] Comment on above: Performed By: #### C BC #### [facility] [address] [place] [address] Justina Jovita Epithelial cells LM Ql (Urine sed) FEW Abnormal NONE SEEN /RARE [facility] Comment on above: Performed By: #### C BC #### [facility] [address] [place] [address] Justina Jovita Glucose Ql (U) Negative Normal NEGATIVE [facility] Comment on above: Performed By: #### C BC #### [facility] [address] [place] [address] Justina Jovita Hemoglobin Ql (U) Negative Normal NEGATIVE [facility] Comment on above: Performed By: #### C BC #### [facility] [address] [place] [address] Justina Jovita Ketones Ql (U) Negative Normal NEGATIVE [facility] Comment on above: Performed By: #### C BC #### [facility] [address] [id number] Justina Jovita LEUKOCYTES SMALL Abnormal NEGATIVE [facility] Comment on above: Performed By: #### C BC #### [facility] [address] [id number] Justina Jovita MUCOUS SMALL Abnormal NONE SEEN [facility] Comment on above: Performed By: #### C BC #### [facility] [address] [id number] Justina Jovita Nitrite Ql (U) Negative Normal NEGATIVE [facility] Comment on above: Performed By: #### C BC #### [facility] [address] [place] [address] Justina Jovita pH (U) 6.5 [pH] Normal 5-9 [facility] Comment on above: Performed By: #### C BC #### [facility] [address] [place] [address] Justina Jovita RBC 0-2 Normal 0-2 [facility] Comment on above: Performed By: #### C BC #### [facility] [address] [place] [address] Justina Hussein SPEC GRAVITY 1.020 Normal 1.005-<=1.025 [facility] Comment on above: Performed By: #### C BC #### [facility] [address] [place] [address] Justina Jovita UA PROTEIN Negative Normal NEGATIVE/ TRACE [facility] Comment on above: Performed By: #### C BC #### [facility] [address] [place] [address] Justinajoselyn Hussein Urobilinogen Qn (U) 0.2 {Juan'U}/dL Normal 0.2 - 1. 0 [facility] Comment on above: Performed By: #### C BC #### [facility] [address] [place] [address] Justina Jovita WBC 5-10 Abnormal NONE SEEN [facility] Comment on above: Performed By: #### C BC #### [facility] [address] [id number] Justina Jovita CBC AUTO DIFFon 02-19-2021 BASO # 0.0 103/ul Normal 0.0-0.1 [facility] Comment on above: Performed By: #### C BC #### [facility] [address] [id number] Justina Jovita Basophils/100 WBC (Bld) 0.6 % Normal 0.2-2.0 [facility] Comment on above: Performed By: #### C BC #### [facility] [address] [place], [place] [address] Justina Jovita EO # 0.0 103/ul Normal 0.0-0.7 [facility] Comment on above: Performed By: #### C BC #### [facility] [address] [place] [address] Justina Jovita Eosinophils/100 WBC (Bld) 0.8 % Critically low 0.9-7.0 [facility] Comment on above: Performed By: #### C BC #### [facility] [address] [place], [place] [address] Justina Jovita Erythrocyte distribution width (RBC) [Ratio] 13.3 % Normal 11.0-15.0 [facility] Comment on above: Performed By: #### C BC #### [facility] [address] [place], [place] [address] Justina Jovita Hematocrit (Bld) [Volume fraction] 37.4 % Normal 36.0-48.0 [facility] Comment on above: Performed By: #### C BC #### [facility] [address] [place], [place] [address] Justina Jovita Hemoglobin (Bld) [Mass/Vol] 12.7 g/dL Normal 12.0-16.0 [facility] Comment on above: Performed By: #### C BC #### [facility] [address] [place], [place] [address] Justina Jovita IG # 0.02 10e3/ul Normal 0.00-0.03 [facility] Comment on above: Performed By: #### C BC #### [facility] [address] [place] [address] Justina Jovita IG % 0.4 % Normal 0.0-0.5 [facility] Comment on above: Performed By: #### C BC #### [facility] [address] [place], [place] [address] Justina Jovita LYMPH # 0.7 103/ul Critically low 1.2-3.8 [facility] Comment on above: Performed By: #### C BC #### [facility] [address] [place], [place] [address] Justina Jovita Lymphocytes/100 WBC (Bld) 14.1 % Critically low 20.5-60.0 [facility] Comment on above: Performed By: #### C BC #### [facility] [address] [place], [place] [address] Justina Hussein MANUAL DIFF REQ NO Normal [facility] Comment on above: Performed By: #### C BC #### [facility] [address] [place], [place] [address] Justinajoselyn Chairezen MCH (RBC) [Entitic mass] 29.1 pg Normal 26.7-34.0 [facility] Comment on above: Performed By: #### C BC #### [facility] [address] [place], [place] [address] Justinajoselyn Hussein MCHC (RBC) [Mass/Vol] 34.0 g/dL Normal 29.9-35.2 [facility] Comment on above: Performed By: #### C BC #### [facility] [address] [place] [address] Justinajoselyn Chairezen MCV (RBC) [Entitic vol] 85.6 fL Normal 81.0-99.0 [facility] Comment on above: Performed By: #### C BC #### [facility] [address] [place], [place] [address] Justina Jovita MONO # 0.4 103/ul Normal 0.3-0.8 [facility] Comment on above: Performed By: #### C BC #### [facility] [address] [place], [place] [address] Justina Jovita Monocytes/100 WBC (Bld) 7.4 % Normal 1.7-12.0 [facility] Comment on above: Performed By: #### C BC #### [facility] [address] [place] [address] Justina Hussein NEUT # 3.8 103/ul Normal 1.4-6.5 [facility] Comment on above: Performed By: #### C BC #### [facility] [address] [place], [place] [address] Justina Hussein Neutrophils/100 WBC (Bld) 76.7 % Critically high 43.0-75.0 [facility] Comment on above: Performed By: #### C BC #### [facility] [address] [place], [place] [address] Justina Hussein Platelet mean volume (Bld) [Entitic vol] 9.5 fL Normal 9.5-13.5 [facility] Comment on above: Performed By: #### C BC #### [facility] [address] [place] [address] Justinajoselyn Chairezen PLT 259 103/ul Normal 150-450 [facility] Comment on above: Performed By: #### C BC #### [facility] [address] [place] [address] Justinajoselyn Chairezen RBC 4.37 106/ul Normal 4.20-5.40 [facility] Comment on above: Performed By: #### C BC #### [facility] [address] [place], [place] [address] Justina Hussein WBC 5.0 103/ul Normal 4.0-11.0 [facility] Comment on above: Performed By: #### C BC #### [facility] [address] [place], [place] [address] Justinajoselyn Hussein ER URINE PROFILEon 1 Bilirubin Ql (U) Negative Normal NEGATIVE [facility] Comment on above: Performed By: #### E RUR #### [facility] [address] [place], [place] [address] Justinajoselyn Hussein Clarity (U) CLEAR Normal CLEAR [facility] Comment on above: Performed By: #### E RUR #### [facility] [address] [place] [address] Justina Jovita Color (U) LT. YELLOW Normal YELLOW [facility] Comment on above: Performed By: #### E RUR #### [facility] [address] [place], [place] [address] Justinajoselyn Hussein ERUAHD A micrscopic examination will be performed if indicated. Normal [facility] Comment on above: Performed By: #### E RUR #### [facility] [address] [place] [address] Jsutina Jovita Glucose Ql (U) Negative Normal NEGATIVE [facility] Comment on above: Performed By: #### E RUR #### [facility] [address] [place] [address] Justina Jovita Hemoglobin Ql (U) Negative Normal NEGATIVE [facility] Comment on above: Performed By: #### E RUR #### [facility] [address] [place] [address] Justina Jovita Ketones Ql (U) TRACE Abnormal NEGATIVE [facility] Comment on above: Performed By: #### E RUR #### [facility] [address] [place] [address] Justina Jovita LEUKOCYTES Negative Normal NEGATIVE [facility] Comment on above: Performed By: #### E RUR #### [facility] [address] [place] [address] Justina Jovita Nitrite Ql (U) Negative Normal NEGATIVE [facility] Comment on above: Performed By: #### E RUR #### [facility] [address] [place] [address] Justina Jovita pH (U) 5.0 [pH] Normal 5-9 [facility] Comment on above: Performed By: #### E RUR #### [facility] [address] [place] [address] Justina Jovita SPEC GRAVITY >=1.030 Abnormal 1.005-<=1.025 [facility] Comment on above: Performed By: #### E RUR #### [facility] [facility] [address] [place] [address] Justina Jovtia UA PROTEIN Negative Normal NEGATIVE/ TRACE [facility] Comment on above: Performed By: #### E RUR #### [facility] [address] [place], [place] [address] Justinajoselyn Chairezen UR MICRO IND NOT INDICATED Normal [facility] Comment on above: Performed By: #### E RUR #### [facility] [address] [place] [id number] Justinajoselyn Hussein Urobilinogen Qn (U) 0.2 {Juan'U}/dL Normal 0.2 - 1. 0 [facility] Comment on above: Performed By: #### E RUR #### [facility] [address] [place], [place] [address] Justina Hussein PROF CHEM 8 (BAS METB)on Anion gap [Moles/Vol] 15.2 mmol/L Normal [facility] Comment on above: Performed By: #### B MP #### [facility] [address] [place], [place] [address] Justina Jovita Calcium [Mass/Vol] 9.3 mg/dL Normal 8.4-10.2 [facility] Comment on above: Performed By: #### B MP #### [facility] [address] [place], [place] [address] Justina Jovita Chloride [Moles/Vol] 102 mmol/L Normal 98-107 [facility] Comment on above: Performed By: #### B MP #### [facility] [address] [place], [place] [address] Justina Jovita CO2 [Moles/Vol] 28.5 mmol/L Normal 22.0-30.0 [facility] Comment on above: Performed By: #### B MP #### [facility] [address] [place], [place] [address] Justina Jovita Creatinine [Mass/Vol] 1.35 mg/dL Critically high 0.52-1.04 [facility] Comment on above: Performed By: #### B MP #### [facility] [address] [place], [place] [address] Justina Jovita EGFR-AF HAITIAN 46 mL/min/1.73m2 Critically low >=60 [facility] Comment on above: Performed By: #### B MP #### [facility] [address] [id number] Justina Jovita EGFR-NON AF HAITIAN 38 mL/min/1.73m2 Critically low >=60 [facility] Comment on above: Performed By: #### B MP #### [facility] [address] [id number] Justina Jovita Glucose [Mass/Vol] 121 mg/dL Critically high 74-[address] [facility] Comment on above: Performed By: #### B MP #### [facility] [address] [phone] Justina Jovita Potassium [Moles/Vol] 3.7 mmol/L Normal 3.4-5.0 [facility] Comment on above: Performed By: #### B MP #### [facility] [address] [place] [address] Justina Jovita Sodium [Moles/Vol] 142 mmol/L Normal 137-145 [facility] Comment on above: Performed By: #### B MP #### [facility] [address] [place], [place] [address] Justina Jovita Urea nitrogen [Mass/Vol] 12.0 mg/dL Normal 7.0-17.0 [facility] Comment on above: Performed By: #### B MP #### [facility] [address] [place], [place] [address] Justina Jovita Urea nitrogen/Creatinine [Mass ratio] 8.9 mg/mg Normal [facility] Comment on above: Performed By: #### B MP #### [facility] [address] [place], [place] [address] Justina Jovita CBC AUTO DIFFon 02-16-2021 BASO # 0.0 103/ul Normal 0.0-0.1 [facility] Comment on above: Performed By: #### C BC #### [facility] [address] [phone] Justina Jovita Basophils/100 WBC (Bld) 0.6 % Normal 0.2-2.0 [facility] Comment on above: Performed By: #### C BC #### [facility] [address] [place], [place] [address] Justina Jovita EO # 0.1 103/ul Normal 0.0-0.7 [facility] Comment on above: Performed By: #### C BC #### [facility] [address] [place], [place] [address] Justina Jovita Eosinophils/100 WBC (Bld) 1.8 % Normal 0.9-7.0 [facility] Comment on above: Performed By: #### C BC #### [facility] [address] [place] [address] Justina Jovita Erythrocyte distribution width (RBC) [Ratio] 13.3 % Normal 11.0-15.0 [facility] Comment on above: Performed By: #### C BC #### [facility] [address] [place] [address] Justina Jovita Hematocrit (Bld) [Volume fraction] 37.7 % Normal 36.0-48.0 [facility] Comment on above: Performed By: #### C BC #### [facility] [address] [place], [place] [address] Justina Jovita Hemoglobin (Bld) [Mass/Vol] 13.0 g/dL Normal 12.0-16.0 [facility] Comment on above: Performed By: #### C BC #### [facility] [address] [place] [address] Justina Jovita IG # 0.02 10e3/ul Normal 0.00-0.03 [facility] Comment on above: Performed By: #### C BC #### [facility] [address] [place] [address] Justina Jovita IG % 0.3 % Normal 0.0-0.5 [facility] Comment on above: Performed By: #### C BC #### [facility] [address] [place] [address] Justina Jovita LYMPH # 1.5 103/ul Normal 1.2-3.8 [facility] Comment on above: Performed By: #### C BC #### [facility] [address] [place], [place] [address] Justina Jovita Lymphocytes/100 WBC (Bld) 23.4 % Normal 20.5-60.0 [facility] Comment on above: Performed By: #### C BC #### [facility] [address] [place], [place] [address] Justina Jovita MANUAL DIFF REQ NO Normal [facility] Comment on above: Performed By: #### C BC #### [facility] [address] [place], [place] [address] Justina Jovita MCH (RBC) [Entitic mass] 29.5 pg Normal 26.7-34.0 [facility] Comment on above: Performed By: #### C BC #### [facility] [address] [place] [address] Justina Jovita MCHC (RBC) [Mass/Vol] 34.5 g/dL Normal 29.9-35.2 [facility] Comment on above: Performed By: #### C BC #### [facility] [address] [place], [place] [address] Justina Jovita MCV (RBC) [Entitic vol] 85.5 fL Normal 81.0-99.0 [facility] Comment on above: Performed By: #### C BC #### [facility] [address] [place], [place] [address] Justina Jovita MONO # 0.7 103/ul Normal 0.3-0.8 [facility] Comment on above: Performed By: #### C BC #### [facility] [address] [place] [address] Justina Jovita Monocytes/100 WBC (Bld) 10.3 % Normal 1.7-12.0 [facility] Comment on above: Performed By: #### C BC #### [facility] [address] [place], [place] [address] Justina Jovita NEUT # 4.2 103/ul Normal 1.4-6.5 [facility] Comment on above: Performed By: #### C BC #### [facility] [address] [place] [address] Justina Hussein Neutrophils/100 WBC (Bld) 63.6 % Normal 43.0-75.0 [facility] Comment on above: Performed By: #### C BC #### [facility] [address] [place], [place] [address] Justina Hussein Platelet mean volume (Bld) [Entitic vol] 9.9 fL Normal 9.5-13.5 [facility] Comment on above: Performed By: #### C BC #### [facility] [address] [place] [address] Justina Hussein PLT 338 103/ul Normal 150-450 [facility] Comment on above: Performed By: #### C BC #### [facility] [address] [place] [address] Justina Hussein RBC 4.41 106/ul Normal 4.20-5.40 [facility] Comment on above: Performed By: #### C BC #### [facility] [address] [place], [place] [address] Justina Hussein WBC 6.6 103/ul Normal 4.0-11.0 [facility] Comment on above: Performed By: #### C BC #### [facility] [address] [place], [place] [address] Justina Hussein CT ABD/PELVIS WO CONon 02-16 [...] Date: 2021-02-16 17:59 Normal [facility] CULTURE URINEon 02-16-2021 CULTURE URINE Culture Observations : LIGHT GROWTH OF MIXED GENITAL NASIR. NO POTENTIAL PATHOGENS SEEN. Normal [facility] Comment on above: Performed By: #### C BC #### [facility] [address] [address] Justina Jovita ER URINE PROFILEon 1 Bilirubin Ql (U) Negative Normal NEGATIVE [facility] Comment on above: Performed By: #### DESIREE BRITO #### [facility] [address] [address] Justina Jovita Clarity (U) CLEAR Normal CLEAR [facility] Comment on above: Performed By: #### LILIANA BRITORO #### [facility] [address] [address] Justina Jovita Color (U) YELLOW Normal YELLOW [facility] Comment on above: Performed By: #### DESIREE BRITO #### [facility] [address] [phone] Justina Jovita ERUAHD A micrscopic examination will be performed if indicated. Normal [facility] Comment on above: Performed By: #### DESIREE BRITO #### [facility] [address] [place] [address] Justina Jovita Glucose Ql (U) Negative Normal NEGATIVE [facility] Comment on above: Performed By: #### DESIREE BRITO #### [facility] [address] [place] [address] Justina Jovita Hemoglobin Ql (U) Negative Normal NEGATIVE [facility] Comment on above: Performed By: #### LILIANA BRITORO #### [facility] [address] [place] [address] Justina Jovita Ketones Ql (U) Negative Normal NEGATIVE [facility] Comment on above: Performed By: #### DESIREE BRITO #### [facility] [address] [place] [address] Justina Jovita LEUKOCYTES SMALL Abnormal NEGATIVE [facility] Comment on above: Performed By: #### DESIREE BRITO #### [facility] [address] [place] [address] Justina Jovita Nitrite Ql (U) Negative Normal NEGATIVE [facility] Comment on above: Performed By: #### DESIREE BIRTO #### [facility] [address] [place] [address] Justina Jovita pH (U) 5.0 [pH] Normal 5-9 [facility] Comment on above: Performed By: #### LILIANA BRITORO #### [facility] [address] [place] [address] Justina Jovita SPEC GRAVITY >=1.030 Abnormal 1.005-<=1.025 [facility] Comment on above: Performed By: #### DESIREE BRITO #### [facility] [address] [place] [address] Justina Jovita UA PROTEIN Negative Normal NEGATIVE/ TRACE [facility] Comment on above: Performed By: #### LILIANA BRITORO #### [facility] [address] [place] [address] Justina Jovita UR MICRO IND INDICATED Normal [facility] Comment on above: Performed By: #### DESIREE BRITO #### [facility] [address] [place], [place] [address] Justina Hussein Urobilinogen Qn (U) 0.2 {Juan'U}/dL Normal 0.2 - 1. 0 [facility] Comment on above: Performed By: #### DESIREE BRITO #### [facility] [address] [place], [place] [address] Justina Hussein LACTATE/LACTIC ACIDon 2020 Lactate [Moles/Vol] 3.5 mmol/L Critically high 0.7-2.0 [facility] Comment on above: Result Comment: test repeated, critical value verified Performed By: #### L ACT #### [facility] [address] [place] [address] Justina Hussein Lactate [Moles/Vol] 3.7 mmol/L Critically high 0.7-2.0 [facility] Comment on above: Result Comment: test repeated, critical value verified Performed By: #### C BC #### [facility] [address] [place] [address] Justina Hussein LIPASEon 02-16-2021 Lipase [Catalytic activity/Vol] 173.0 U/L Normal 23.0-300.0 [facility] Comment on above: Performed By: #### C BC #### [facility] [address] [place] [address] Justina Hussein POINT OF CARE GLUCOSEon 02-04 Glucose [Mass/Vol] 187 mg/dL Critically high 74-[address] [facility] Comment on above: Performed By: #### P OCGLUC #### [facility] [address] [place], [place] [address] Justina Hussein PROF 14(COMP METB)on 021 Albumin [Mass/Vol] 4.4 g/dL Normal 3.5-5.0 [facility] Comment on above: Performed By: #### C BC #### [facility] [address] [place], [place] [address] Justina Hussein Albumin/Globulin [Mass ratio] 1.1 {ratio} Normal [facility] Comment on above: Performed By: #### C BC #### [facility] [address] [place], [place] [address] Justina Jovita ALP [Catalytic activity/Vol] 51 U/L Normal 38-126 [facility] Comment on above: Performed By: #### C BC #### [facility] [address] [place], [place] [address] Justina Jovita ALT [Catalytic activity/Vol] 32 U/L Normal 9-52 [facility] Comment on above: Performed By: #### C BC #### [facility] [address] [place], [place] [address] Justina Jovita Anion gap [Moles/Vol] 14.8 mmol/L Normal [facility] Comment on above: Performed By: #### C BC #### [facility] [address] [place] [address] Justina Jovita AST [Catalytic activity/Vol] 40 U/L Critically high 14-36 [facility] Comment on above: Performed By: #### C BC #### [facility] [address] [place], [place] [address] Justina Jovita Bilirubin [Mass/Vol] 0.7 mg/dL Normal 0.2-1.3 [facility] Comment on above: Performed By: #### C BC #### [facility] [address] [place], [place] [address] Justina Jovita Calcium [Mass/Vol] 9.6 mg/dL Normal 8.4-10.2 [facility] Comment on above: Performed By: #### C BC #### [facility] [address] [place], [place] [address] Justina Jovita Chloride [Moles/Vol] 99 mmol/L Normal 98-107 [facility] Comment on above: Performed By: #### C BC #### [facility] [address] [place] [address] Justina Jovita CO2 [Moles/Vol] 29.3 mmol/L Normal 22.0-30.0 [facility] Comment on above: Performed By: #### C BC #### [facility] [address] [place] [address] Justina Jovita Creatinine [Mass/Vol] 1.64 mg/dL Critically high 0.52-1.04 [facility] Comment on above: Performed By: #### C BC #### [facility] [address] [id number] Justina Jovita EGFR-AF HAITIAN 36 mL/min/1.73m2 Critically low >=60 [facility] Comment on above: Performed By: #### C BC #### [facility] [address] [id number] Justina Jovita EGFR-NON AF HAITIAN 30 mL/min/1.73m2 Critically low >=60 [facility] Comment on above: Performed By: #### C BC #### [facility] [address] [place], [place] [address] Justina Jovita Globulin (S) [Mass/Vol] 4.0 g/dL Normal [facility] Comment on above: Performed By: #### C BC #### [facility] [address] [place] [address] Justina Jovita Glucose [Mass/Vol] 185 mg/dL Critically high 74-106 [facility] Comment on above: Performed By: #### C BC #### [facility] [address] [place], [place] [address] Justina Jovita Potassium [Moles/Vol] 4.1 mmol/L Normal 3.4-5.0 [facility] Comment on above: Performed By: #### C BC #### [facility] [address] [place], [place] [address] Justina Jovita Protein [Mass/Vol] 8.4 g/dL Critically high 6.1-8.2 [facility] Comment on above: Performed By: #### C BC #### [facility] [address] [place], [place] [address] Justina Jovita Sodium [Moles/Vol] 139 mmol/L Normal 137-145 [facility] Comment on above: Performed By: #### C BC #### [facility] [address] [place], [place] [address] Justina Jovita Urea nitrogen [Mass/Vol] 29.0 mg/dL Critically high 7.0-17.0 [facility] Comment on above: Performed By: #### C BC #### [facility] [address] [place] [address] Justina Hussein Urea nitrogen/Creatinine [Mass ratio] 17.7 mg/mg Normal [facility] Comment on above: Performed By: #### C BC #### [facility] [address] [place], [place] [address] Justina Hussein PROTIMEon 02-16-2021 INR Coag (PPP) [Relative time] 1.05 {INR} Normal [facility] Comment on above: Performed By: #### P TT, PT #### [facility] [address] [place] [address] Justina Hussein INR GUIDELINES SEE BELOW Normal [facility] Comment on above: Result Comment: ROSELIA RED INR: 2.0 - 3.0 CONDITIONS NOT LISTED BELOW 2.5 - 3.5 FOR PROSTHETIC HEART VALVE REPLACEMENT 2.5 - 3.5 RECURRENT THROMBOSIS Performed By: #### P TT, PT #### [facility] [address] [place] [address] Justina Hussein PT Coag (PPP) [Time] 11.4 s Normal 9.0-11.6 [facility] Comment on above: Performed By: #### P TT, PT #### [facility] [address] [place] [address] Justina Hussein PTTon 02-16-2021 aPTT Coag (Bld) [Time] 24.1 s Normal 22.3-36.2 [facility] Comment on above: Performed By: #### P TT, PT #### [facility] [address] [place] [address] Justina Hussein TROPONIN, HIGH SENSITIVITYon 02-16-2021 HSTROP 6.2 pg/mL Normal 4.0-35.5 [facility] Comment on above: Result Comment: CUT- OFF POINTS HAVE BEEN ESTABLISHED BASED ON THE FOURTH UNIVERSAL DEFINITIONS OF MYOCARDIAL INFARCTION. THE UPPER REFERENCE LIMIT (URL) OF TROPONIN, DEFINED THE 99TH PERCENTILE OF cTnI DISTRIBUTION IN A REFERENCE POPULATION, HAS BEEN CONFIRMED THE DECISION THRESHOLD FOR MO DIAGNOSIS. Performed By: #### C BC #### [facility] [address] [place], [place] [address] Justina Jovita URINE MICROSCOPIC ONLYon BACTERIA TRACE Abnormal NONE SEEN [facility] Comment on above: Performed By: #### LILIANA BRITORO #### [facility] [address] [place], [place] [address] Justina Jovita Bacteria identified Cx Nom (U) INDICATED Normal [facility] Comment on above: Performed By: #### LILIANA BRITORO #### [facility] [address] [place], [place] [address] Justina Jovita CAST SEEN Abnormal NONE SEEN [facility] Comment on above: Performed By: #### LILIANA BRITORO #### [facility] [address] [place], [place] [address] Justina Jovita Crystals LM Nom (Urine sed) NONE SEEN Normal NONE SEEN [facility] Comment on above: Performed By: #### LILIANA BRITORO #### [facility] [address] [place], [place] [address] Justina Jovita Epithelial cells LM Ql (Urine sed) FEW Abnormal NONE SEEN /RARE [facility] Comment on above: Performed By: #### LILIANA BRITORO #### [facility] [address] [place], [place] [address] Justina Jovita MUCOUS NONE SEEN Normal NONE SEEN [facility] Comment on above: Performed By: #### LILIANA BRITORO #### [facility] [address] [place] [address] Justina Jovita RBC 2-5 Abnormal 0-2 [facility] Comment on above: Performed By: #### LILIANA BRITORO #### [facility] [address] [place], [place] [address] Justina Jovita WBC 20-50 Abnormal NONE SEEN [facility] Comment on above: Performed By: #### LILIANA BRITORO #### [facility] [address] [place], [place] [address] Justina Jovita XR CHEST 2 Von 02-16-2021 XR CHEST 2 V EXAM: XR CHEST 2 V HISTORY: NAUSEA WITH VOMITING, UNSPECIFIED COMPARISON: None. TECHNIQUE: PA and lateral views FINDINGS: Lungs are clear. Cardiac silhouette is normal. No pleural effusion or pneumothorax. Degenerative changes both shoulders. No acute osseous findings. IMPRESSION: No acute process. Electronically authenticated by: JEREMIAH LAURA Date: 2021-02-16 17:49 Normal [facility] Encounters Encounter Date Encounter Type Care Provider Facility Start: 04-26-2024 End: 04-26-2024 ambulatory JAYCOB AICHHOLZ Not Available Start: 04-25-2024 End: 04-25-2024 ambulatory BRENNEN Williams MCCAINEN Not Available Start: 04-21-2024 Encounter for other preprocedural examination [facility] Start: 04-21-2024 End: 04-21-2024 ambulatory [facility] Start: 04-13-2024 End: 04-13-2024 ambulatory ENEDINA PHELPS Not Available Start: 03-23-2024 End: 03-23-2024 ambulatory [facility] Not Available Start: 02-29-2024 End: 02-29-2024 ambulatory JAYCOB AICHHOLZ Not Available Start: 01-20-2024 End: 01-20-2024 ambulatory WILLARD LESLIEJOSSIEI Not Available Start: 11-29-2023 End: 11-29-2023 ambulatory JAYCOB AICHHOLZ Not Available Start: 10-26-2023 End: 10-26-2023 ambulatory JAYCOB AICHHOLZ Not Available Start: 07-15-2021 End: 07-16-2021 ambulatory DEANGELO JONES Facility:[facility] Start: 03-11-2021 End: 03-12-[address] JEROMY INMAN Facility:[facility] Start: 02-19-2021 End: 02-19-2021 ambulatory JUAN DENISE Facility:[facility] Start: 02-16-2021 End: 02-16-2021 ambulatory MELI FREGOSO Facility:[facility] Start: 12-10-2020 End: 12-11-2020 ambulatory NONE LISTED REQUEST Facility:[facility] Start: 11-18-2020 End: 11-19-2020 ambulatory NONE LISTED REQUEST Facility:[facility] Payers Date Payer Category Payer Medicare [id number] 1961 Medicare [id number] 1961 Self-pay [id number] 1961 Unknown [id number] 1940 Unknown [id number] 2.16.84 0.1.271159.3.579.2.593 1938 Unknown [id number] 2.16.84 0.1.269494.3.579.2.593 1938 Unknown [id number] 2.16.84 0.1.497508.3.579.2.593 1938 Unknown [id number] 2.16.8 40.1.622043.3.579.2.1286 1938 Unknown [id number] 2.16.8 40.1.064609.3.579.2.1286 1938 Unknown [id number] 2.16.8 40.1.494047.3.579.2.1286 1938 Unknown [id number] 2.16.84 0.1.681433.3.579.2.1259 1938 Unknown [id number] 2.16.84 0.1.400462.3.579.2.1259 1938 Unknown [id number] 2.16.84 0.1.727482.3.579.2.1259 1938 Unknown [id number] 2.16.84 0.1.412846.3.579.2.1259 1938 Unknown [id number] 2.16.84 0.1.908710.3.579.2.125 1938 Unknown [id number] 2.16.84 0.1.682002.3.579.2.125 1938 Unknown [id number] 2.16.84 0.1.560124.3.579.2.1259 1938 Unknown [id number] 2.16.84 0.1.372998.3.579.2.1259 1938 Unknown [id number] 2.16.84 0.1.290223.3.579.2.1259 Unknown [id number] 2.16.84 0.1.537778.3.579.2.593 Unknown [id number] 2.16.84 0.1.030902.3.579.2.593 Unknown [id number] 2.16.84 0.1.641749.3.579.2.593 Summary Purpose Family History No Family History Records FoundNo Family History Records FoundNo Family History Records Found Advance Directives No Advanced Directives Records FoundNo Advanced Directives Records FoundNo Advanced Directives Records Found Additional Source Comments INFORMATION SOURCE (unrecogn ized section and content) DATE CREATED AUTHOR 08/11/2021 [facility] DATE CREATED AUTHOR AUTHOR'S ORGANIZ ATION 04/23/2024 [facility] DATE CREATED AUTHOR AUTHOR'S ORGANIZ ATION 04/26/2024 [facility] FOR RECORDS PERTAINING TO PATIENTS WHO [...] BE BASED ON THE PRIMARY CLINICAL RECORDS. [facility] [employer] provides no warranty or guarantee of the accuracy or completeness of information in this document.
--- NOTE | 2024-05-05 10:00 | CA_ITS ---
Patient Name: ASHLEIGH FRANKLIN MR#: [id number] : 1940 Exam Date: 05/05/2024 Ordering Doctor: IRINA Colmenares CNP ECHOCARDIOGRAM REPORT PROCEDURE: CA ECHO DOPPLER COMPLETE INDICATIONS: Pre-op clearance, hypertension, diabetes, chronic kidney disease COMPARISON: None. DESCRIPTION: COMPLETE ECHOCARDIOGRAM Real-time transthoracic echocardiography with 2D, M-mode, spectral and color flow Doppler performed. QUALITY: Technical quality was good. LEFT VENTRICLE: Normal chamber size. Thickened septal wall. Normal systolic function. LV EF: Normal left ventricular ejection fraction, (>55%). DIASTOLIC: Normal diastolic function. ATRIAL SEPTUM: Visually appears intact. LEFT ATRIUM: Normal chamber size. RIGHT ATRIUM: Normal chamber size. RIGHT VENTRICLE: Normal chamber size. Normal right ventricular systolic function. TRICUSPID VALVE: Normal mobility and thickness. No stenosis with trivial regurgitation. No evidence of pulmonary hypertension. RVSP 31 mmHg MITRAL VALVE: Normal mobility and thickness. No evidence of mitral valve stenosis. Mild mitral annular calcification. No mitral regurgitation. AORTIC VALVE: Normal trileaflet appearance. Normal leaflet mobility. No evidence of aortic valve stenosis. No aortic regurgitation. AORTIC ROOT: Normal diameter and appearance. PULMONIC VALVE: Not well visualized. PERICARDIUM: No evidence of pericardial effusion. IVC: Collapses with inspirations. IVC is normal in size. PLEURA: CONCLUSION: 1. Normal ventricular function. LVEF is estimated at 55 to 60%. 2. No significant valvular dysfunction. 3. Normal right-sided pressures. Adult Echocardiography Procedure Report Left Ventricle LVEDD (3.7 - 5.6 cm): 3.71 cm LVESD (2.2 - 4.0 cm): 2.50 cm LVIVS thickness (0.6 - 1.2 cm): 1.23 cm LVPW thickness (0.5 - 1.0 cm): 0.92 cm e': 0.10 m/s E - e': 5.84 LVOT Max Gradient: 2.16 mm[Hg] LVOT Area (cm2): 0.74 m/s Peak Velocity (LVOT): 0.74 m/s Mean Velocity (LVOT): 0.49 m/s LVOT Diameter 1.70 cm Left Atrium LA Volume Index (2D A2C): 26.63 ml/m2 Left Atrium Systolic Dimension: 2.96 cm Mitral Valve MV E to A Ratio: 0.64 Mitral Valve A-Wave Peak Velocity: 0.95 m/s Mitral Valve E-Wave Peak Velocity: 0.60 m/s Right Ventricle Aorta AO Root Diam: 2.61 cm Aortic Valve AoV Area (Peak Tano): 1.20 cm2, 1.20 cm2 AoV Area (VTI): 1.40 cm2, 1.40 cm2 Peak Velocity(Antegrade Flow): 1.39 m/s Peak Gradient(Antegrade Flow): 7.78 mm[Hg] Mean Velocity(Antegrade Flow): 0.90 m/s Mean Gradient(Antegrade Flow): 3.75 mm[Hg] Velocity Time Integral: 25.22 cm Tricuspid Valve Peak Velocity (Regurgitant Flow): 2.67 m/s Pulmonic Valve Peak Velocity: 0.96 m/s Peak Gradient: 3.70 mm[Hg] Right Atrium Right Atrium Systolic Pressure: 38.57 ml, 38.57 ml Dictated by: Vinay Ortez M.D. on 05/05/2024 at 17:42 Approved by: Vinay Ortez M.D. on 05/05/2024 at 17:44
== END 2024-05-05 09:47 | disposition home or self-care (01) ==
LOC: CARD 09:46
PROVIDERS: PCP Nurse Practitioner; Visit Provider Nurse Practitioner
DX: E11.22 Type 2 diabetes mellitus with diabetic chronic kidney disease (principal); N18.32 Chronic kidney disease, stage 3b; Z01.818 Encounter for other preprocedural examination
CPT/HCPCS: 93306

== ENCOUNTER 2024-06-27 11:31 | Outpatient (OUT) | payer MEDICARE, SELFPAY ==
--- OUTSIDE RECORDS SUMMARY | 2024-06-27 11:36 | XMS_ITS | CCD ---
Author Organization [facility] Care Team Providers Care Bucket Chucker Name Role Phone REQUEST, DR NONE LISTED Admitting Unavaila ble REQUEST, NONE LISTED Consulting Unavaila ble REQUEST, NONE LISTED Attending Unavaila ble HOUSE, DR PINZON Primary Care Unavailable ROBERT, DEANGELO Admitting Unavailable STORM, DR PINZON Primary Care Unavailable ROBERT, DEANGELO Consulting Unavailable ROBERT, DEANGELO Attending Unavailable HOWIE, JUAN Andrew Consulting Unavailable STORM, DR PINZON Primary Care Unavailable HOWIE, JUAN [...] Care Unavailable CAITLIN, TOMASA Marcano Referring Unavailable STORM, JEROMY Brown Primary Care Unavailable CAITLIN, TOMASA Marcano Attending Unavailable CAITLIN, TOMASA Marcano Referring Unavailable HOUSE, JEROMY Brown Primary Care Unavailable CAITLIN, TOMASA Marcano Referring Unavailable HOUSE, JEROMY Brown Primary Care Unavailable CAITLIN, TOMASA Marcano Referring Unavailable CHLOE COLMENARES Primary Care Unavailable CAITLIN, TOMASA Marcano Admitting Unavailable CAITLIN, TOMASA Marcano Attending Unavailable HOUSE, JEROMY Brown Primary Care Unavailable AICHHOLShailesh, CHLOE Attending Unavailable AICHHOLZ, CHLOE Attending Unavailable PETMARIANNE COLBY Attending Unavailable AICHHOLZ, CHLOE Attending Unavailable CAITLIN, TOMASA Marcano Attending Unavailable CAITLIN, TOMASA Marcano Referring Unavailable ENEDINA PHELPS Attending Unavailable CAITLIN, TOMASA Marcano Referring Unavailable BRENNEN NAGEL Attending Unavailable AICHHOLShaileshCHLOE Attending Unavailable MARY MCKOY Attending Unavailable BRENNEN NAGEL Referring Unavailable MARY MCKOY Attending Unavailable BRENNEN NAGEL Referring Unavailable TOMASA MOCTEZUMA Attending Unavailable TOMASA MOCTEZUMA Attending Unavailable Dedra GARCIA, Chloe Unavailable Soy Walton MD Primary Care Provider [phone] Allergies Allergy Classification Reported Allergen(s) Allergy Type Date of Onset Reaction(s) Facility (1 source) Adhesive agent Drug allergy (disorder) 4 [facility] Repository (3 sources) Iodine; Translations: [IODINE] Drug Allergy 0 [facility] Repository (1 source) Latex; Translations: [LATEX] Propensity to adverse reactions to drug (disorder) 4 [facility] Repository (1 source) Pollen; Translations: [POLLEN EXTRACTS] Propensity to adverse reactions to drug (disorder) 0 [facility] Repository (2 sources) Pollen Propensity to adverse reactions 0 [facility] Medications Current Medications Medication Drug Class(es) Dates Sig (Normalized) Sig (Original) acetaminophen 500 mg oral tablet (2 sources) take 1 tablet by mouth every six hours as needed acetaminophen (Tylenol) 500 MG tablet Take 500 mg by mouth every 6 (six) hours if needed Active cycloSPORINE (Restasis) 0.05 % ophthalmic emulsion (2 sources) take 1 drop(s) into the eye(s) in the morning cycloSPORINE (Restasis) 0.05 % ophthalmic emulsion 1 drop in the morning. Active 24 hr dilTIAZem hydrochloride 120 mg extended release oral capsule (3 sources) Calcium Channel Gemma Start: 05-30-2024 End: 09-07-2024 take 1 capsule by mouth once daily dilTIAZem CD (Cardizem CD) 120 MG 24 hr capsule Indications: 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, unspecified type Take 1 capsule (120 mg) by mouth Daily 90 capsule 1 06/09/2024 09/07/2024 Active donepezil hydrochloride 5 mg oral tablet (2 sources) Start: 05-30-2024 End: 08-28-2024 take 1 tablet by mouth at bedtime donepezil (Aricept) 5 MG tablet Indications: Memory impairment of gradual onset Take 1 tablet (5 mg) by mouth at bedtime 90 tablet 1 05/30/2024 08/28/2024 Active hydroCHLOROthiazide 12.5 mg / valsartan 80 mg oral tablet (2 sources) Thiazide Diuretic, Angiotensin 2 Receptor Gemma Start: 05-30-2024 End: 08-28-2024 take 1 tablet by mouth once daily valsartan-hydroCHL OROthiazide (Diovan-HCT) 80-12.5 MG tablet Indications: Essential hypertension (CMS/HCC) Take 1 tablet by mouth Daily 90 tablet 1 05/30/2024 08/28/2024 Active simvastatin 10 mg oral tablet (2 sources) HMG-CoA Reductase Inhibitor Start: 05-30-2024 End: 08-28-2024 take 1 tablet by mouth at bedtime simvastatin (Zocor) 10 MG tablet Indications: Other hyperlipidemia (CMS/HCC) Take 1 tablet (10 mg) by mouth at bedtime 90 tablet 1 05/30/2024 08/28/2024 Active traMADol hydrochloride 50 mg oral tablet (2 sources) Opioid Agonist Start: 06-08-2024 End: 07-08-2024 take 1 tablet by mouth every eight hours for pain traMADol (Ultram) 50 MG tablet Indications: Chronic low back pain, unspecified back pain laterality, unspecified whether sciatica present Take 1 tablet (50 mg) by mouth every 8 (eight) hours if needed for severe pain 90 tablet 2 06/08/2024 07/08/2024 Active Problems Active Problems Problem Classification Problem Date Documented Date Episodic/Chronic Cardiac dysrhythmias (3 sources) Conduction disorder of the heart; Translations: [Unspecified premature depolarization] Onset: 09-13-2023 09-13-2023 Chronic Chronic kidney disease (2 sources) Chronic kidney disease stage 3B ; Translations: [Chronic kidney disease, stage 3b (HCC)] Onset: 10-26-2023 04-26-2024 Chronic Delirium, dementia, and amnestic and other cognitive disorders (2 sources) Dementia; Translations: [Unspecified dementia without behavioral disturbance] Onset: 04-26-2024 04-26-2024 Chronic Diabetes mellitus with complications (2 sources) Chronic kidney disease due to type 2 diabetes mellitus; Translations: [Type 2 diabetes mellitus with diabetic chronic kidney disease] Onset: 04-26-2024 04-26-2024 Chronic Diabetes mellitus without complication (4 sources) 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s; Translations: [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] Onset: 02-18-2021 09-13-2023 Chronic Disorders of lipid metabolism (2 sources) Hyperlipidemia; Translations: [Other hyperlipidemia] Onset: 09-13-2023 09-13-2023 Chronic Essential hypertension (4 sources) Essential (primary) hypertension; Translations: [Essential hypertension] Onset: 02-18-2021 09-13-2023 Chronic Glaucoma (2 sources) Glaucoma; Translations: [Unspecified glaucoma] Onset: 10-26-2023 10-26-2023 Chronic Immunizations and screening for infectious disease (4 sources) Encounter for immunization; Translations: [ENCOUNTER FOR IMMUNIZATION] Onset: 07-15-2021 Episodic Osteoarthritis (6 sources) Primary coxarthrosis, bilateral; 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] Onset: 09-13-2023 09-13-2023 Chronic Other connective tissue disease (1 source) Presence of left artificial hip joint; Translations: [Presence of left artificial hip joint] Onset: 05-17-2024 Chronic Other connective tissue disease (4 sources) History of repair of hip joint; Translations: [Presence of right artificial hip joint] Onset: 10-26-2023 10-26-2023 Chronic Other nervous system disorders (2 sources) Difficulty walking; Translations: [Difficulty in walking, not elsewhere classified] Onset: 05-20-2024 05-20-2024 Chronic Other nervous system disorders (2 sources) Hip pain; Translations: [Other acute postprocedural pain] Onset: 05-20-2024 05-20-2024 Episodic Other upper respiratory disease (2 sources) Allergic rhinitis; Translations: [Allergic rhinitis, unspecified] Onset: 10-26-2023 10-26-2023 Chronic Spondylosis; intervertebral disc disorders; other back problems (3 sources) Spondylosis without myelopathy or radiculopathy, lumbar region; Translations: [Degeneration of lumbar intervertebral disc] Onset: 02-18-2021 02-29-2024 Chronic Unclassified (1 source) Degenerative Joint Disease Left Hip Onset: 05-17-2024 Past or Other Problems Problem Classification Problem Date Documented Da te Episodic/Chronic Abdominal pain (1 source) Unspecified abdominal pain; Translations: [UNSPECIFIED ABDOMINAL PAIN] Onset: 02-18-2021 Episodic Acute and unspecified renal failure (2 sources) Acute renal failure syndrome; Translations: [Acute kidney failure, unspecified] Onset: 03-01-2024 Resolved: 04-26-2024 04-26-2024 Episodic Fluid and electrolyte disorders (1 source) Dehydration; Translations: [DEHYDRATION] Onset: 02-18-2021 Episodic Genitourinary symptoms and ill-defined conditions (1 source) Personal history of urinary (tract) infections; Translations: [PERS HX URINARY TRACT INFECTIONS] Onset: 02-21-2021 Episodic Hemorrhoids (2 sources) Hemorrhoids; Translations: [Unspecified hemorrhoids] Onset: 10-26-2023 10-26-2023 Episodic Malaise and fatigue (1 source) Weakness; Translations: [WEAKNESS] Onset: 02-18-2021 Episodic Mood disorders (2 sources) Mood disorders Onset: 10-26-2023 10-26-2023 Other aftercare (1 source) USP (current) use of aspirin; Translations: [AUTOMOTIVE PRODUCT ENGINEER CURRENT USE OF ASPIRIN] Onset: 02-18-2021 Episodic Other aftercare (1 source) Other superintendent terminal (current) drug therapy; Translations: [OTH SKILLED NURSING CURRENT DRUG THERAPY] Onset: 02-18-2021 Episodic Other aftercare (1 source) USP (current) use of oral hypoglycemic drugs; Translations: [SKILLED NURSING USE ORAL HYPOGLYCEMIC DX] Onset: 02-18-2021 Episodic Other gastrointestinal disorders (3 sources) Diarrhea, unspecified; Translations: [DIARRHEA UNSPECIFIED] Onset: 02-19-2021 Episodic Other non-epithelial cancer of skin (2 sources) Squamous cell carcinoma of skin of trunk; Translations: [Squamous cell carcinoma of skin of other part of trunk] Onset: 10-26-2023 10-26-2023 Episodic Other nutritional; endocrine; and metabolic disorders (2 sources) Unintentional weight loss; Translations: [Abnormal weight loss] Onset: 02-29-2024 02-29-2024 Episodic Other skin disorders (2 sources) Seborrheic keratosis; Translations: [Other seborrheic keratosis] Onset: 09-13-2023 09-13-2023 Episodic Residual codes; unclassified (1 source) Acquired absence of other specified parts of digestive tract; Translations: [ACQ ABSENCE OTH PART DIGESTV TRACT] Onset: 02-18-2021 Episodic Residual codes; unclassified (1 source) Acquired absence of both cervix and uterus; Translations: [ACQUIRED ABSENCE BOTH CERVIX AND UTERUS] Onset: 02-18-2021 Episodic Residual codes; unclassified (2 sources) Memory impairment; Translations: [Other amnesia] Onset: 12-21-2023 12-21-2023 Episodic Spondylosis; intervertebral disc disorders; other back problems (3 sources) Chronic low back pain; Translations: [Chronic low back pain, unspecified back pain laterality, unspecified whether sciatica present] Onset: 10-26-2023 06-08-2024 Episodic Urinary tract infections (7 sources) Urinary tract infection, site not specified; Translations: [Acute cystitis] Onset: 02-18-2021 Resolved: 04-26-2024 Episodic Viral infection (1 source) Viral infection, unspecified; Translations: [VIRAL INFECTION UNSPECIFIED] Onset: 02-21-2021 Episodic Results Test Name Value Interpretation Reference Range Facil ity HGB A1C (GLYCO-HGB)on 2023 Glucose [Mass/Vol] 103 mg/dL Normal [facility] Comment on above: Performed By: #### H A1C #### [facility] ([id number]) [address] [place] [address], [address] [place] [address] HbA1c (Bld) [Mass fraction] 5.2 % Normal 4.4-5.6 [facility] Comment on above: Result Comment: NOTE ADA Guidelines Result HgbA1c Normal : less than 5.7 % Prediabetes : 5.7 % to 6.4 % Diabetes : > 6.4 % Use with caution in patients with abnormal hemoglobin variants as the half-life of red blood cells and in vivo glycation rates are affected. Performed By: #### H A1C #### [facility] ([id number]) [address] [place] [address], [address] [place] [address] BASIC METABOLIC PANLon 04-21 Anion gap [Moles/Vol] 13 mmol/L Normal 01-18 [facility] Comment on above: Performed By: #### C BCA, BMP #### [facility] ([id number]) [address], [address] [place] [address] Calcium [Mass/Vol] 9.7 mg/dL Normal 8.5-10.5 [facility] Comment on above: Performed By: #### C BCA, BMP #### [facility] ([id number]) [address], [address] [place] [address] Chloride [Moles/Vol] 103 mmol/L Normal 98-109 [facility] Comment on above: Performed By: #### C BCA, BMP #### [facility] ([id number]) [address], [address] [place] [address] CO2 [Moles/Vol] 25 mmol/L Normal 22-32 [facility] Comment on above: Performed By: #### C BCA, BMP #### [facility] ([id number]) [address], [address] [place] [address] Creatinine [Mass/Vol] 1.43 mg/dL High 0.40-1.00 [facility] Comment on above: Result Comment: METH OD TRACEABLE TO IDMS STANDARD Performed By: #### C BCA, BMP #### [facility] ([id number]) [address], [address] [place] [address] GFR/1.73 sq M.predicted among non-blacks MDRD (S/P/Bld) [Vol rate/Area] 36 mL/min/{1.73_m2} Low >59 [facility] Comment on above: Result Comment: Reported eGFR is based on the CKD-EPI 2020 equation that does not use a race coefficient. Performed By: #### C BCA, BMP #### [facility] ([id number]) [address], [address] [place] [address] Glucose [Mass/Vol] 122 mg/dL High 65-99 [facility] Comment on above: Performed By: #### C BCA, BMP #### [facility] ([id number]) [address], [address] [place] [address] Potassium [Moles/Vol] 3.7 mmol/L Normal 3.5-5.0 [facility] Comment on above: Performed By: #### C BCA, BMP #### [facility] ([id number]) [address], [address] [place] [address] Sodium [Moles/Vol] 141 mmol/L Normal 134-146 [facility] Comment on above: Performed By: #### C LARRY, BMP #### [facility] ([id number]) [address], [address] [place] [address] Urea nitrogen [Mass/Vol] 30 mg/dL High 5-27 [facility] Comment on above: Performed By: #### C LARRY, BMP #### [facility] ([id number]) [address], [address] [place] [address] CBC AND AUTO DIFFon 04-21-20 24 ABSOLUTE BASOPHIL 0.1 X10E9/L Normal 0.0-0.2 [facility] Comment on above: Performed By: #### C BCA, BMP #### [facility] ([id number]) [address], [address] [place] [address] ABSOLUTE NEUTROPHIL 3.4 X10E9/L Normal 1.5-6.6 [facility] Comment on above: Performed By: #### C BCA, BMP #### [facility] ([id number]) [address], [address] [place] [address] Basophils/100 WBC (Bld) 1.0 % Normal [facility] Comment on above: Performed By: #### C BCA, BMP #### [facility] ([id number]) [address], [address] [place] [address] Eosinophils (Bld) [#/Vol] 0.2 10*3/uL Normal 0.0-0.4 [facility] Comment on above: Performed By: #### Farhan JUAREZ, BMP #### [facility] ([id number]) [address], [address] [place] [address] Eosinophils/100 WBC (Bld) 4.3 % Normal [facility] Comment on above: Performed By: #### Farhan JUAREZ, BMP #### [facility] ([id number]) [address], [address] [place] [address] Erythrocyte distribution width (RBC) [Ratio] 15.3 % High 11.5-15.0 [facility] Comment on above: Performed By: #### Farhan JUAREZ, BMP #### [facility] ([id number]) [address], [address] [place] [address] Hematocrit (Bld) [Volume fraction] 32.6 % Low 35-47 [facility] Comment on above: Performed By: #### Farhan JUAREZ, BMP #### [facility] ([id number]) [address], [facility] [address] [place] [address] Hemoglobin (Bld) [Mass/Vol] 11.1 g/dL Low 11.7-15.5 [facility] Comment on above: Performed By: #### C LARRY, BMP #### [facility] ([id number]) [address], [address] [place] [address] Lymphocytes (Bld) [#/Vol] 1.1 10*3/uL Normal 1.0-3.5 [facility] Comment on above: Performed By: #### Farhan JUAREZ, BMP #### [facility] ([id number]) [address], [address] [place] [address] Lymphocytes/100 WBC (Bld) 20.0 % Normal [facility] Comment on above: Performed By: #### Farhan JUAREZ, BMP #### [facility] ([id number]) [address], [address] [place] [address] MCH (RBC) [Entitic mass] 31.0 pg Normal 27-34 [facility] Comment on above: Performed By: #### C LARRY, BMP #### [facility] ([id number]) [address], [address] [place] [address] MCHC (RBC) [Mass/Vol] 34.0 g/dL Normal 32-36 [facility] Comment on above: Performed By: #### C LARRY, BMP #### [facility] ([id number]) [address], [address] [place] [address] MCV (RBC) [Entitic vol] 91 fL Normal 80-100 [facility] Comment on above: Performed By: #### C LARRY, BMP #### [facility] ([id number]) [address], [address] [place] [address] Monocytes (Bld) [#/Vol] 0.6 10*3/uL Normal 0-0.9 [facility] Comment on above: Performed By: #### C LARRY, BMP #### [facility] ([id number]) [address], [address] [place] [address] Monocytes/100 WBC (Bld) 11.7 % Normal [facility] Comment on above: Performed By: #### Farhan JUAREZ, BMP #### [facility] ([id number]) [address], [address] [place] [address] Neutrophils/100 WBC (Bld) 63.0 % Normal [facility] Comment on above: Performed By: #### C LARRY, BMP #### [facility] ([id number]) [address], [address] [place] [address] Platelet mean volume (Bld) [Entitic vol] 8.3 fL Normal 7-12 [facility] Comment on above: Performed By: #### C LARRY, BMP #### [facility] ([id number]) [address], [address] [place] [address] Platelets (Bld) [#/Vol] 241 10*3/uL Normal 150-450 [facility] Comment on above: Performed By: #### C BCA, BMP #### [facility] ([id number]) [address], [address] [place] [address] RBC COUNT 3.58 X10E12/L Low 3.80-5.20 [facility] Comment on above: Performed By: #### C LARRY, BMP #### [facility] ([id number]) [address], [address] [place] [address] WBC (Bld) [#/Vol] 5.4 10*3/uL Normal 4.0-11.0 [facility] Comment on above: Performed By: #### C BCA, BMP #### [facility] ([id number]) [address], [address] [place] [address] CULTURE URINEon 03-11-2021 CULTURE URINE Culture Observations : LIGHT GROWTH OF MIXED GENITAL NASIR. NO POTENTIAL PATHOGENS SEEN. Normal [facility] Comment on above: Performed By: #### C BC #### [facility] [address] [place] [address] Justina Jovita UA RANDOM W/MICROSCOPICon BACTERIA TRACE Abnormal NONE SEEN [facility] Comment on above: Performed By: #### C BC #### [facility] [address] [place], [place] [id number] Justina Jovita Bilirubin Ql (U) Negative Normal NEGATIVE [facility] Comment on above: Performed By: #### C BC #### [facility] [address] [place], [place] [id number] Justina Jovita CAST NONE SEEN Normal NONE SEEN [facility] Comment on above: Performed By: #### C BC #### [facility] [address] [place], [place] [id number] Justina Jovita Clarity (U) SL CLOUDY Abnormal CLEAR [facility] Comment on above: Performed By: #### C BC #### [facility] [address] [place] [address] Justina Jovita Color (U) LT. YELLOW Normal YELLOW [facility] Comment on above: Performed By: #### C BC #### [facility] [address] [place] [address] Justina Jovita Crystals LM Nom (Urine sed) NONE SEEN Normal NONE SEEN [facility] Comment on above: Performed By: #### C BC #### [facility] [address] [place] [address] Justina Jovita Epithelial cells LM Ql (Urine sed) FEW Abnormal NONE SEEN /RARE [facility] Comment on above: Performed By: #### C BC #### [facility] [address] [place] [address] Justina Jovita Glucose Ql (U) Negative Normal NEGATIVE [facility] Comment on above: Performed By: #### C BC #### [facility] [address] [place] [address] Justina Jovita Hemoglobin Ql (U) Negative Normal NEGATIVE [facility] Comment on above: Performed By: #### C BC #### [facility] [address] [place] [address] Justina Jovita Ketones Ql (U) Negative Normal NEGATIVE [facility] Comment on above: Performed By: #### C BC #### [facility] [address] [place] [address] Justina Jovita LEUKOCYTES SMALL Abnormal NEGATIVE [facility] Comment on above: Performed By: #### C BC #### [facility] [address] [place] [address] Justina Jovita MUCOUS SMALL Abnormal NONE SEEN [facility] Comment on above: Performed By: #### C BC #### [facility] [address] [place] [address] Justina Jovita Nitrite Ql (U) Negative Normal NEGATIVE [facility] Comment on above: Performed By: #### C BC #### [facility] [address] [place] [address] Justinajoselyn Hussein pH (U) 6.5 [pH] Normal 5-[address] [facility] Comment on above: Performed By: #### C BC #### [facility] [address] [place] [address] Justinajoselyn Hussein RBC 0-2 Normal 0-[address] [facility] Comment on above: Performed By: #### C BC #### [facility] [address] [place] [address] Justina Hussein SPEC GRAVITY 1.020 Normal 1.005-<=1.025 [facility] Comment on above: Performed By: #### C BC #### [facility] [address] [place] [address] Justinajoselyn Hussein UA PROTEIN Negative Normal NEGATIVE/ TRACE [facility] Comment on above: Performed By: #### C BC #### [facility] [address] [place] [address] Justina Hussein Urobilinogen Qn (U) 0.2 {Juan'U}/dL Normal 0.2 - 1. 0 [facility] Comment on above: Performed By: #### C BC #### [facility] [address] [place] [address] Justinajoselyn Hussein WBC 5-10 Abnormal NONE SEEN [facility] Comment on above: Performed By: #### C BC #### [facility] [address] [place] [address] Justina Hussein CBC AUTO DIFFon 02-19-2021 BASO # 0.0 103/ul Normal 0.0-0.1 [facility] Comment on above: Performed By: #### C BC #### [facility] [address] [place] [address] Justinajoselyn Hussein Basophils/100 WBC (Bld) 0.6 % Normal 0.2-2.[address] [facility] Comment on above: Performed By: #### C BC #### [facility] [address] [place] [address] Justina Jovita EO # 0.0 103/ul Normal 0.0-0.7 [facility] Comment on above: Performed By: #### C BC #### [facility] [address] [place], [place] [id number] Justina Jovita Eosinophils/100 WBC (Bld) 0.8 % Critically low 0.9-7.0 [facility] Comment on above: Performed By: #### C BC #### [facility] [address] [place], [place] [phone] Justina Jovita Erythrocyte distribution width (RBC) [Ratio] 13.3 % Normal 11.0-15.0 [facility] Comment on above: Performed By: #### C BC #### [facility] [address] [place] [address] Justina Jovita Hematocrit (Bld) [Volume fraction] 37.4 % Normal 36.0-48.0 [facility] Comment on above: Performed By: #### C BC #### [facility] [address] [place] [address] Justina Jovita Hemoglobin (Bld) [Mass/Vol] 12.7 g/dL Normal 12.0-16.0 [facility] Comment on above: Performed By: #### C BC #### [facility] [address] [place], [place] [phone] Justina Jovita IG # 0.02 10e3/ul Normal 0.00-0.03 [facility] Comment on above: Performed By: #### C BC #### [facility] [address] [place] [address] Justina Jovita IG % 0.4 % Normal 0.0-0.[address] [facility] Comment on above: Performed By: #### C BC #### [facility] [address] [place] [address] Justina Jovita LYMPH # 0.7 103/ul Critically low 1.2-3.8 [facility] Comment on above: Performed By: #### C BC #### [facility] [address] [place] [address] Justina Jovita Lymphocytes/100 WBC (Bld) 14.1 % Critically low 20.5-60.0 [facility] Comment on above: Performed By: #### C BC #### [facility] [address] [place], [place] [phone] Justina Jovita MANUAL DIFF REQ NO Normal [facility] Comment on above: Performed By: #### C BC #### [facility] [address] [place], [place] [phone] Justinajoselyn Hussein MCH (RBC) [Entitic mass] 29.1 pg Normal 26.7-34.[address] [facility] Comment on above: Performed By: #### C BC #### [facility] [address] [place], [place] [phone] Justina Hussein MCHC (RBC) [Mass/Vol] 34.0 g/dL Normal 29.9-35.[address] [facility] Comment on above: Performed By: #### C BC #### [facility] [address] [place] [address] Justinajoselyn Chairezen MCV (RBC) [Entitic vol] 85.6 fL Normal 81.0-99.[address] [facility] Comment on above: Performed By: #### C BC #### [facility] [address] [place] [address] Justina Jovita MONO # 0.4 103/ul Normal 0.3-0.[address] [facility] Comment on above: Performed By: #### C BC #### [facility] [address] [place] [address] Justina Jovita Monocytes/100 WBC (Bld) 7.4 % Normal 1.7-12.[address] [facility] Comment on above: Performed By: #### C BC #### [facility] [address] [place] [address] Justina Jovita NEUT # 3.8 103/ul Normal 1.4-6.[address] [facility] Comment on above: Performed By: #### C BC #### [facility] [address] [place], [place] [phone] Justina Jovita Neutrophils/100 WBC (Bld) 76.7 % Critically high 43.0-75.0 [facility] Comment on above: Performed By: #### C BC #### [facility] [address] [place], [place] [phone] Justina Jovita Platelet mean volume (Bld) [Entitic vol] 9.5 fL Normal 9.5-13.5 [facility] Comment on above: Performed By: #### C BC #### [facility] [address] [place] [address] Justinajoselyn Hussein PLT 259 103/ul Normal 150-[address] [facility] Comment on above: Performed By: #### C BC #### [facility] [address] [place] [address] Justina Jovita RBC 4.37 106/ul Normal 4.20-5.40 [facility] Comment on above: Performed By: #### C BC #### [facility] [address] [place] [address] Justinajoselyn Chairezen WBC 5.0 103/ul Normal 4.0-11.0 [facility] Comment on above: Performed By: #### C BC #### [facility] [address] [place] [address] Justinajoselyn Hussein ER URINE PROFILEon 1 Bilirubin Ql (U) Negative Normal NEGATIVE [facility] Comment on above: Performed By: #### E RUR #### [facility] [address] [place] [address] Justinajoselyn Hussein Clarity (U) CLEAR Normal CLEAR [facility] Comment on above: Performed By: #### E RUR #### [facility] [address] [place] [address] Justina Jovita Color (U) LT. YELLOW Normal YELLOW [facility] Comment on above: Performed By: #### E RUR #### [facility] [address] [place], [place] [phone] Justina Jovita ERUAHD A micrscopic examination will be performed if indicated. Normal [facility] Comment on above: Performed By: #### E RUR #### [facility] [address] [place] [address] Justina Jovita Glucose Ql (U) Negative Normal NEGATIVE [facility] Comment on above: Performed By: #### E RUR #### [facility] [address] [place] [address] Justina Jovita Hemoglobin Ql (U) Negative Normal NEGATIVE [facility] Comment on above: Performed By: #### E RUR #### [facility] [address] [place] [address] Justina Jovita Ketones Ql (U) TRACE Abnormal NEGATIVE [facility] Comment on above: Performed By: #### E RUR #### [facility] [address] [place] [address] Justina Jovita LEUKOCYTES Negative Normal NEGATIVE [facility] Comment on above: Performed By: #### E RUR #### [facility] [address] [place] [address] Justina Jovita Nitrite Ql (U) Negative Normal NEGATIVE [facility] Comment on above: Performed By: #### E RUR #### [facility] [address] [place] [address] Justina Jovita pH (U) 5.0 [pH] Normal 5-[address] [facility] Comment on above: Performed By: #### E RUR #### [facility] [address] [place] [address] Justinajoselyn Chairezen SPEC GRAVITY >=1.030 Abnormal 1.005-<=1.025 [facility] Comment on above: Performed By: #### E RUR #### [facility] [address] [place] [address] Justina Hussein UA PROTEIN Negative Normal NEGATIVE/ TRACE [facility] Comment on above: Performed By: #### E RUR #### [facility] [address] [place] [address] Justina Jovita UR MICRO IND NOT INDICATED Normal [facility] Comment on above: Performed By: #### E RUR #### [facility] [address] [place] [address] Justina Jovita Urobilinogen Qn (U) 0.2 {Juan'U}/dL Normal 0.2 - 1. 0 [facility] Comment on above: Performed By: #### E RUR #### [facility] [address] [place] [address] Justina Jovita PROF CHEM 8 (BAS METB)on Anion gap [Moles/Vol] 15.2 mmol/L Normal [facility] Comment on above: Performed By: #### B MP #### [facility] [address] [address] Justina Jovita Calcium [Mass/Vol] 9.3 mg/dL Normal 8.4-10.2 [facility] Comment on above: Performed By: #### B MP #### [facility] [address] [address] Justina Jovita Chloride [Moles/Vol] 102 mmol/L Normal 98-107 [facility] Comment on above: Performed By: #### B MP #### [facility] [address] [place] [address] Justina Jovita CO2 [Moles/Vol] 28.5 mmol/L Normal 22.0-30.0 [facility] Comment on above: Performed By: #### B MP #### [facility] [address] [place] [address] Justina Jovita Creatinine [Mass/Vol] 1.35 mg/dL Critically high 0.52-1.04 [facility] Comment on above: Performed By: #### B MP #### [facility] [address] [place] [address] Justina Jovita EGFR-AF ALGERIAN 46 mL/min/1.73m2 Critically low >=60 [facility] Comment on above: Performed By: #### B MP #### [facility] [address] [address] Justina Jovita EGFR-NON AF ALGERIAN 38 mL/min/1.73m2 Critically low >=60 [facility] Comment on above: Performed By: #### B MP #### [facility] [address] [phone] Justina Jovita Glucose [Mass/Vol] 121 mg/dL Critically high 74-106 [facility] Comment on above: Performed By: #### B MP #### [facility] [address] [phone] Justina Jovita Potassium [Moles/Vol] 3.7 mmol/L Normal 3.4-5.0 [facility] Comment on above: Performed By: #### B MP #### [facility] [address] [place], [place] [address] Justina Jovita Sodium [Moles/Vol] 142 mmol/L Normal 137-145 [facility] Comment on above: Performed By: #### B MP #### [facility] [address] [place] [address] Justina Jovita Urea nitrogen [Mass/Vol] 12.0 mg/dL Normal 7.0-17.0 [facility] Comment on above: Performed By: #### B MP #### [facility] [address] [place] [address] Justina Jovita Urea nitrogen/Creatinine [Mass ratio] 8.9 mg/mg Normal [facility] Comment on above: Performed By: #### B MP #### [facility] [address] [place] [address] Justina Jovita CBC AUTO DIFFon 02-16-2021 BASO # 0.0 103/ul Normal 0.0-0.1 [facility] Comment on above: Performed By: #### C BC #### [facility] [address] [place], [place] [address] Justina Jovita Basophils/100 WBC (Bld) 0.6 % Normal 0.2-2.0 [facility] Comment on above: Performed By: #### C BC #### [facility] [address] [place], [place] [address] Justina Jovita EO # 0.1 103/ul Normal 0.0-0.7 [facility] Comment on above: Performed By: #### C BC #### [facility] [address] [place], [place] [address] Justina Jovita Eosinophils/100 WBC (Bld) 1.8 % Normal 0.9-7.0 [facility] Comment on above: Performed By: #### C BC #### [facility] [address] [place] [address] Justina Jovita Erythrocyte distribution width (RBC) [Ratio] 13.3 % Normal 11.0-15.0 [facility] Comment on above: Performed By: #### C BC #### [facility] [address] [place] [address] Justina Hussein Hematocrit (Bld) [Volume fraction] 37.7 % Normal 36.0-48.0 [facility] Comment on above: Performed By: #### C BC #### [facility] [address] [place] [address] Justina Hussein Hemoglobin (Bld) [Mass/Vol] 13.0 g/dL Normal 12.0-16.0 [facility] Comment on above: Performed By: #### C BC #### [facility] [address] [place] [address] Justinajoselyn Hussein IG # 0.02 10e3/ul Normal 0.00-0.03 [facility] Comment on above: Performed By: #### C BC #### [facility] [address] [place] [address] Justinajoselyn Hussein IG % 0.3 % Normal 0.0-0.5 [facility] Comment on above: Performed By: #### C BC #### [facility] [address] [place] [address] Justina Hussein LYMPH # 1.5 103/ul Normal 1.2-3.8 [facility] Comment on above: Performed By: #### C BC #### [facility] [address] [place] [address] Justina Hussein Lymphocytes/100 WBC (Bld) 23.4 % Normal 20.5-60.0 [facility] Comment on above: Performed By: #### C BC #### [facility] [address] [place] [address] Justina Hussein MANUAL DIFF REQ NO Normal [facility] Comment on above: Performed By: #### C BC #### [facility] [address] [place] [address] Justina Hussein MCH (RBC) [Entitic mass] 29.5 pg Normal 26.7-34.0 [facility] Comment on above: Performed By: #### C BC #### [facility] [address] [place], [place] [address] Justinajoselyn Hussein MCHC (RBC) [Mass/Vol] 34.5 g/dL Normal 29.9-35.[address] [facility] Comment on above: Performed By: #### C BC #### [facility] [address] [phone] Justina Jovita MCV (RBC) [Entitic vol] 85.5 fL Normal 81.0-99.0 [facility] Comment on above: Performed By: #### C BC #### [facility] [address] [phone] Justina Jovita MONO # 0.7 103/ul Normal 0.3-0.[address] [facility] Comment on above: Performed By: #### C BC #### [facility] [address] [place], [place] [address] Justina Jovita Monocytes/100 WBC (Bld) 10.3 % Normal 1.7-12.0 [facility] Comment on above: Performed By: #### C BC #### [facility] [address] [place], [place] [address] Justina Jovita NEUT # 4.2 103/ul Normal 1.4-6.5 [facility] Comment on above: Performed By: #### C BC #### [facility] [address] [place], [place] [address] Justina Jovita Neutrophils/100 WBC (Bld) 63.6 % Normal 43.0-75.[address] [facility] Comment on above: Performed By: #### C BC #### [facility] [address] [place] [address] Justina Jovita Platelet mean volume (Bld) [Entitic vol] 9.9 fL Normal 9.5-13.[address] [facility] Comment on above: Performed By: #### C BC #### [facility] [address] [phone] Justina Jovita PLT 338 103/ul Normal 150-[address] [facility] Comment on above: Performed By: #### C BC #### [facility] [address] [place], [place] [address] Justina Hussein RBC 4.41 106/ul Normal 4.20-5.40 [facility] Comment on above: Performed By: #### C BC #### [facility] [address] [place], [place] [address] Justina Hussein WBC 6.6 103/ul Normal 4.0-11.0 [facility] Comment on above: Performed By: #### C BC #### [facility] [address] [place], [place] [address] ABD/PELVIS WO CONon 02-16 CT ABD/PELVIS [...] BRITTANI CABALLERO Date: 2021-02-16 17:[address] [facility] CULTURE URINEon 02-16-2021 CULTURE URINE Culture Observations : LIGHT GROWTH OF MIXED GENITAL NASIR. NO POTENTIAL PATHOGENS SEEN. Normal [facility] Comment on above: Performed By: #### C BC #### [facility] [address] [place] [address] Justina Jovita ER URINE PROFILEon Bilirubin Ql (U) Negative Normal NEGATIVE [facility] Comment on above: Performed By: #### ILLIANA BRITORO #### [facility] [address] [place] [address] Justina Jovita Clarity (U) CLEAR Normal CLEAR [facility] Comment on above: Performed By: #### LILIANA BRITORO #### [facility] [address] [place] [address] Justina Jovita Color (U) YELLOW Normal YELLOW [facility] Comment on above: Performed By: #### LILIANA BRITORO #### [facility] [address] [place] [address] Justina Jovita ERUAHD A micrscopic examination will be performed if indicated. Normal [facility] Comment on above: Performed By: #### LILIANA BRITORO #### [facility] [address] [place] [address] Justina Jovita Glucose Ql (U) Negative Normal NEGATIVE [facility] Comment on above: Performed By: #### LILIANA BRITORO #### [facility] [address] [place] [address] Justina Jovita Hemoglobin Ql (U) Negative Normal NEGATIVE [facility] Comment on above: Performed By: #### LILIANA BRITORO #### [facility] [address] [place] [address] Justina Jovita Ketones Ql (U) Negative Normal NEGATIVE [facility] Comment on above: Performed By: #### LILIANA BRITORO #### [facility] [address] [place] [address] Justina Jovita LEUKOCYTES SMALL Abnormal NEGATIVE [facility] Comment on above: Performed By: #### DESIREE BRITO #### [facility] [address] [place] [address] Justinajoselyn Hussein Nitrite Ql (U) Negative Normal NEGATIVE [facility] Comment on above: Performed By: #### DESIREE BRITO #### [facility] [address] [place] [address] Justina Jovita pH (U) 5.0 [pH] Normal 5-9 [facility] Comment on above: Performed By: #### DESIREE BRITO #### [facility] [address] [place] [address] Justina Hussein SPEC GRAVITY >=1.030 Abnormal 1.005-<=1.025 [facility] Comment on above: Performed By: #### DESIREE BRITO #### [facility] [address] [place] [address] Justinajoselyn Hussein UA PROTEIN Negative Normal NEGATIVE/ TRACE [facility] Comment on above: Performed By: #### DESIREE BRITO #### [facility] [address] [place] [address] Justina Hussein UR MICRO IND INDICATED Normal [facility] Comment on above: Performed By: #### DESIREE BRITO #### [facility] [address] [place] [address] Justina Hussein Urobilinogen Qn (U) 0.2 {Juan'U}/dL Normal 0.2 - 1. 0 [facility] Comment on above: Performed By: #### DESIREE BRITO #### [facility] [address] [place] [address] Justina Hussein LACTATE/LACTIC ACIDon 2020 Lactate [Moles/Vol] 3.5 mmol/L Critically high 0.7-2.0 [facility] Comment on above: Result Comment: test repeated, critical value verified Performed By: #### L ACT #### [facility] [address] [place], [place] [address] Justinajoselyn Hussein Lactate [Moles/Vol] 3.7 mmol/L Critically high 0.7-2.0 [facility] Comment on above: Result Comment: test repeated, critical value verified Performed By: #### C BC #### [facility] [address] [place], [place] [address] Justinajoselyn Hussein LIPASEon 02-16-2021 Lipase [Catalytic activity/Vol] 173.0 U/L Normal 23.0-300.0 [facility] Comment on above: Performed By: #### C BC #### [facility] [address] [place], [place] [address] Justina Hussein POINT OF CARE GLUCOSEon 02-04 Glucose [Mass/Vol] 187 mg/dL Critically high 74-106 [facility] Comment on above: Performed By: #### P OCGLUC #### [facility] [address] [place] [address] Justina Hussein PROF 14(COMP METB)on 021 Albumin [Mass/Vol] 4.4 g/dL Normal 3.5-5.0 [facility] Comment on above: Performed By: #### C BC #### [facility] [address] [place], [place] [address] Justina Hussein Albumin/Globulin [Mass ratio] 1.1 {ratio} Normal [facility] Comment on above: Performed By: #### C BC #### [facility] [address] [place], [place] [address] Justina Jovita ALP [Catalytic activity/Vol] 51 U/L Normal 38-126 [facility] Comment on above: Performed By: #### C BC #### [facility] [address] [place], [place] [address] Justina Jovita ALT [Catalytic activity/Vol] 32 U/L Normal 9-52 [facility] Comment on above: Performed By: #### C BC #### [facility] [address] [place] [address] Justinajoselyn Hussein Anion gap [Moles/Vol] 14.8 mmol/L Normal [facility] Comment on above: Performed By: #### C BC #### [facility] [address] [place], [place] [address] Justina Jovita AST [Catalytic activity/Vol] 40 U/L Critically high 14-36 [facility] Comment on above: Performed By: #### C BC #### [facility] [address] [place], [place] [address] Justina Jovita Bilirubin [Mass/Vol] 0.7 mg/dL Normal 0.2-1.3 [facility] Comment on above: Performed By: #### C BC #### [facility] [address] [place], [place] [address] Justina Jovita Calcium [Mass/Vol] 9.6 mg/dL Normal 8.4-10.2 [facility] Comment on above: Performed By: #### C BC #### [facility] [address] [phone] Justina Jovita Chloride [Moles/Vol] 99 mmol/L Normal 98-107 [facility] Comment on above: Performed By: #### C BC #### [facility] [address] [place], [place] [address] Justina Jovita CO2 [Moles/Vol] 29.3 mmol/L Normal 22.0-30.0 [facility] Comment on above: Performed By: #### C BC #### [facility] [address] [place], [place] [address] Justina Jovita Creatinine [Mass/Vol] 1.64 mg/dL Critically high 0.52-1.04 [facility] Comment on above: Performed By: #### C BC #### [facility] [address] [place], [place] [address] Justina Jovita EGFR-AF ALGERIAN 36 mL/min/1.73m2 Critically low >=[address] [facility] Comment on above: Performed By: #### C BC #### [facility] [address] [place], [place] [address] Justina Jovita EGFR-NON AF ALGERIAN 30 mL/min/1.73m2 Critically low >=[address] [facility] Comment on above: Performed By: #### C BC #### [facility] [address] [place], [place] [address] Justina Jovita Globulin (S) [Mass/Vol] 4.0 g/dL Normal [facility] Comment on above: Performed By: #### C BC #### [facility] [address] [place], [place] [address] Justina Jovita Glucose [Mass/Vol] 185 mg/dL Critically high 74-106 [facility] Comment on above: Performed By: #### C BC #### [facility] [address] [phone] Justina Jovita Potassium [Moles/Vol] 4.1 mmol/L Normal 3.4-5.0 [facility] Comment on above: Performed By: #### C BC #### [facility] [address] [place], [place] [address] Justina Jovita Protein [Mass/Vol] 8.4 g/dL Critically high 6.1-8.2 [facility] Comment on above: Performed By: #### C BC #### [facility] [address] [place] [address] Justina Jovita Sodium [Moles/Vol] 139 mmol/L Normal 137-145 [facility] Comment on above: Performed By: #### C BC #### [facility] [address] [place], [place] [address] Justina Jovita Urea nitrogen [Mass/Vol] 29.0 mg/dL Critically high 7.0-17.0 [facility] Comment on above: Performed By: #### C BC #### [facility] [address] [place], [place] [address] Justina Jovita Urea nitrogen/Creatinine [Mass ratio] 17.7 mg/mg Normal [facility] Comment on above: Performed By: #### C BC #### [facility] [address] [place] [address] Justina Jovita PROTIMEon 02-16-2021 INR Coag (PPP) [Relative time] 1.05 {INR} Normal [facility] Comment on above: Performed By: #### P TT, PT #### [facility] [address] [place] [address] Justina Hussein INR GUIDELINES SEE BELOW Normal [facility] Comment on above: Result Comment: ROSELIA RED INR: 2.0 - 3.0 CONDITIONS NOT LISTED BELOW 2.5 - 3.5 FOR PROSTHETIC HEART VALVE REPLACEMENT 2.5 - 3.5 RECURRENT THROMBOSIS Performed By: #### P TT, PT #### [facility] [address] [place], [place] [phone] Justina Hussein PT Coag (PPP) [Time] 11.4 s Normal 9.0-11.[address] [facility] Comment on above: Performed By: #### P TT, PT #### [facility] [address] [place], [place] [phone] Justina Hussein PTTon 02-16-2021 aPTT Coag (Bld) [Time] 24.1 s Normal 22.3-36.2 [facility] Comment on above: Performed By: #### P TT, PT #### [facility] [address] [place] [address] Justina Hussein TROPONIN, HIGH SENSITIVITYon 02-16-2021 HSTROP 6.2 pg/mL Normal 4.0-35.[address] [facility] Comment on above: Result Comment: CUT- OFF POINTS HAVE BEEN ESTABLISHED BASED ON THE FOURTH UNIVERSAL DEFINITIONS OF MYOCARDIAL INFARCTION. THE UPPER REFERENCE LIMIT (URL) OF TROPONIN, DEFINED THE 99TH PERCENTILE OF cTnI DISTRIBUTION IN A REFERENCE POPULATION, HAS BEEN CONFIRMED THE DECISION THRESHOLD FOR [place] DIAGNOSIS. Performed By: #### C BC #### [facility] [address] [place] [address] Justina Hussein URINE MICROSCOPIC ONLYon BACTERIA TRACE Abnormal NONE SEEN [facility] Comment on above: Performed By: #### DESIREE BRITO #### [facility] [address] [place], [place] [phone] Justina Hussein Bacteria identified Cx Nom (U) INDICATED Normal [facility] Comment on above: Performed By: #### E LILIANA CROSSRO #### [facility] [address] [place], [place] [phone] Justina Chairezen CAST SEEN Abnormal NONE SEEN [facility] Comment on above: Performed By: #### LILIANA BRITORO #### [facility] [address] [place], [place] [address] Justina Jovita Crystals LM Nom (Urine sed) NONE SEEN Normal NONE SEEN [facility] Comment on above: Performed By: #### Stalin CROSS, UMDONALRO #### [facility] [address] [place], [place] [address] Justina Jovita Epithelial cells LM Ql (Urine sed) FEW Abnormal NONE SEEN /RARE [facility] Comment on above: Performed By: #### Stalin CROSS, LILIANARO #### [facility] [address] [place], [place] [address] Justina Jovita MUCOUS NONE SEEN Normal NONE SEEN [facility] Comment on above: Performed By: #### LILIANA BRITORO #### [facility] [address] [place] [id number] Justina Jovita RBC 2-5 Abnormal 0-2 [facility] Comment on above: Performed By: #### LILIANA BRITORO #### [facility] [address] [place] [id number] Justina Jovita WBC 20-50 Abnormal NONE SEEN [facility] Comment on above: Performed By: #### LILIANA BRITORO #### [facility] [address] [place] [id number] Justina Jovita XR CHEST 2 Von 02-16-2021 XR CHEST 2 V EXAM: XR CHEST 2 V HISTORY: NAUSEA WITH VOMITING, UNSPECIFIED COMPARISON: None. TECHNIQUE: PA and lateral views FINDINGS: Lungs are clear. Cardiac silhouette is normal. No pleural effusion or pneumothorax. Degenerative changes both shoulders. No acute osseous findings. IMPRESSION: No acute process. Electronically authenticated by: JEREMIAH LAURA Date: 2021-02-16 17:49 Normal [facility] Encounters Encounter Date Encounter Type Care Provider Facility Start: 06-09-2024 End: 06-09-2024 Refill Chloe Colmenares NP Work Phone: [facility] Comment on above: Cardiac arrhythmia d ue to premature depolarization, unspecified type Start: 06-08-2024 End: 06-08-2024 Telephone encounter Chloe Lorettaholz [employer]OKE PROGRAM COORDINATOR Work Phone: [facility] Comment on above: Med Refill Start: 05-30-2024 End: 05-30-2024 ambulatory TOMASA Marcano PIERRON Not Available Start: 05-25-2024 End: 05-25-2024 ambulatory TOMASA Marcano PIERRON Not Available Start: 05-25-2024 ambulatory MARY MCKOY Not A vailable Start: 05-23-2024 End: 05-23-2024 ambulatory MARY MCKOY Not Available Start: 05-17-2024 End: 05-19-[address] [facility] Start: 05-16-2024 Encounter for other preprocedural examination [facility] Start: 05-15-2024 End: 05-15-[address] [facility] Start: 04-26-2024 Preoperative state Chloe braun [employer]OKE PROGRAM COORDINATOR Work Phone: [facility] Start: 04-26-2024 End: 04-26-2024 ambulatory CHLOE AICHHOLZ Not Available Start: 04-25-2024 End: 04-25-2024 ambulatory BRENNEN NAGEL Not Available Start: 04-21-2024 End: 04-21-[address] [facility] Start: 04-13-2024 End: 04-13-2024 ambulatory ENEDINA MATTIE Not Available Start: 03-23-2024 End: 03-23-2024 ambulatory TOMASA Marcano CAITLIN Not Available Start: 02-29-2024 End: 02-29-2024 ambulatory CHLOE AICHHOLZ Not Available Start: 01-20-2024 End: 01-20-2024 ambulatory MARIANNE A WILFRIDOI Not Available Start: 11-29-2023 End: 11-29-2023 ambulatory CHLOE AICHHOLZ Not Available Start: 10-26-2023 Patient encounter procedure Chloe Aichholz [employer]OKE PROGRAM COORDINATOR Work Phone: [facility] Start: 10-26-2023 End: 10-26-2023 ambulatory CHLOE AICHHOLZ Not Available Start: 07-15-2021 End: 07-16-2021 ambulatory DEANGELO JONES Facility:[facility] Start: 03-11-2021 End: 03-12-[address] JEROMY INMAN Facility:[facility] Start: 02-19-2021 End: 02-19-2021 ambulatory JUAN Lorrie HALEYKARLO Facility:[facility] Start: 02-16-2021 End: 02-16-2021 ambulatory MELI FREGOSO Facility:[facility] Start: 12-10-2020 End: 12-11-2020 ambulatory NONE LISTED REQUEST Facility:[facility] Start: 11-18-2020 End: 11-19-[address] NONE LISTED REQUEST Facility:[facility] Plan of Treatment Date Care Activity Detail Author Start: 03-01-2025 Urine screening for protein Diabetes: Urine Protein Screening [facility] Start: 01-22-2025 End: 01-22-2025 Patient encounter procedure 01/22/2025 11:30 AM EDT Office Visit [facility] [address] [place] [id number] Marianne Venegas MD [address] [facility] [place] [address] [facility] Start: 08-14-2024 Hemoglobin A1c measurement Diabetes: Hemoglobin A1C [facility] Start: 06-27-2024 End: 06-27-2024 Patient encounter procedure 06/27/2024 10:30 AM EDT Office Visit [facility] [address] [facility] [address] [place] [address] Tomasa Moctezuma DO [address] [place] [address] [facility] Start: 06-21-2024 End: 06-21-2024 Patient encounter procedure 06/21/2024 1:40 PM EDT Office Visit [facility] [address] [place] [address] Chloe Colmenares, RADHA [address] [place] [address] [facility] Start: 05-07-2024 Influenza vaccination Influenza Vacc ine (#1) [facility] Start: 1950 Glaucoma screening Diabetes: R etinopathy Screening [facility] Immunizations Immunization Date Immunization Notes Care Provider Fa cility 01-06-2024 Pneumococcal Conjuga te PCV 20 Chloe Aichholz [employer]OKE PROGRAM COORDINATOR Work Phone: [facility] 06-18-2023 Influenza, Seasonal, Quadrivalent, Adjuvanted Chloe Aichholz STROKE PROGRAM COORDINATOR Work Phone: [facility] 06-18-2023 influenza virus vacc ine, unspecified formulation Chloe Aichholz STROKE PROGRAM COORDINATOR Work Phone: [facility] 07-02-2022 Influenza, Seasonal, Quadrivalent, Adjuvanted Chloe Aichholz STROKE PROGRAM COORDINATOR Work Phone: [facility] 06-13-2019 influenza, injectabl e, quadrivalent, preservative free Chloe Aichholz STROKE PROGRAM COORDINATOR Work Phone: [facility] 02-07-2018 pneumococcal polysaccharide vaccine, 23 valent Chloe Aichholz STROKE PROGRAM COORDINATOR Work Phone: [facility] Payers Date Payer Category Payer Medicare [employer]AGE [employer] [id number] 2023-Present [address] [place] [id number] 2022 Medicare [id number] 1959 Medicare [id number] 1959 Self-pay [id number] 1959 Unknown [id number] 1938 Unknown [id number] 2.16.840.1.062122.3.579.2.593 1938 Unknown [id number] ..840.1.159391.3.579.2.593 1938 Unknown [id number] 2.16.840.1.262375.3.579.2.593 1938 Unknown [id number] 2.16.840.1.481136.3.579.2.128 1938 Unknown [id number] 2.16.840.1.941203.3.579.2.128 1938 Unknown [id number] 2.16.840.1.141583.3.579.2.128 1938 Unknown [id number] 2.16.840.1.405605.3.579.2.128 1938 Unknown [id number] 2.16.840.1.700157.3.579.2.128 1938 Unknown [id number] 2.16.840.1.662167.3.579.2.1258 1938 Unknown [id number] 2.16.840.1.588010.3.579.2.1258 1938 Unknown [id number] 2.16.840.1.572735.3.579.2.1258 1938 Unknown [id number] 2.16.840.1.110750.3.579.2.1258 1938 Unknown [id number] 2.16.840.1.513409.3.579.2.1258 1938 Unknown [id number] 2.16.840.1.940593.3.579.2.1258 1938 Unknown [id number] 2.16.840.1.224730.3.579.2.1258 1938 Unknown [id number] 2.16.840.1.116744.3.579.2.1258 1938 Unknown [id number] 2.16.840.1.460211.3.579.2.1258 1938 Unknown [id number] 2.16.840.1.505449.3.579.2.1259 1938 Unknown [id number] 2.16.840.1.007180.3.579.2.1259 1938 Unknown [id number] 2.16.840.1.878364.3.579.2.1259 1938 Unknown [id number] 2.16.840.1.544515.3.579.2.125 1938 Unknown [id number] 2.16.840.1.935840.3.579.2.125 Unknown [id number] 2.16.840.1.364722.3.579.2.593 Unknown [id number] 2.16.840.1.240506.3.579.2.593 Unknown [id number] 2.16.840.1.668906.3.579.2.593 Social History Date Type Detail Facility Start: 04-23-2023 Tobacco smoking status [facility] Never sm oked tobacco [facility] Start: 04-23-2023 Tobacco use and exposure Smoke less tobacco non-user [facility] Start: 05-23-2024 Alcoholic beverage intake Life time non-drinker (finding) [facility] Start: 10-26-2023 End: 04-26-2024 History of Social function [facility] Start: 10-26-2023 End: 04-26-2024 Humiliation, Afraid, Rape, and Kick questionnaire [HARK] [facility] Within the last year , have you been afraid of your partner or ex-partner? No [facility] Are you now , , , , never or living with a partner? [facility] How often to you hav e a drink containing alcohol? Never [facility] How many standard dr inks containing alcohol do you have on a typical day? Patient does not drink [facility] Do you feel stress - tense, restless, nervous, or anxious, or unable to sleep at night because your mind is troubled all the time - these days [OSQ] Only a little [facility] (I/We) worried wheth er (my/our) food would run out before (I/we) got money to buy more. Never true [facility] Start: 1940 Sex assigned at Not on file [facility] Telephone encounter Note 06-08-2024 Telephone Encounter - ROSY BOLAÑOS - 06/08/2024 4:26 PM EDT Note Date & Type Note Facility 06-08-2024 Telephone encount er Note PT CALLED ASKING TO GET A REFILL ON HER [facility] NEEDS A NEW PRESCRIPTION [facility] Note 06-08-2024 Telephone Encounter - ROSY BOLAÑOS - 06/08/2024 4:26 PM EDT Note Date & Type Note Facility 06-08-2024 Miscellaneous Notes Formattin g of this note might be different from the original. PT CALLED ASKING TO GET A REFILL ON HER [facility] NEEDS A NEW PRESCRIPTION documented in this encounter [facility] Clinical Note 05-18-2024 Note Date & Type Note Facility 05-18-2024 Note XR HIP LT 2-3 VIEWS W OR WO PELVIS Clinical history: Postoperative evaluation. Comparisons: None. Findings: AP and crosstable lateral left hip radiographs are obtained labeled postop . Left hip arthroplasty is present. Femoral head projects centrally over the prosthetic acetabular cup. No acute fracture. No periprosthetic radiolucency. Postoperative changes of soft tissue swelling and soft tissue gas are noted about the arthroplasty. IMPRESSION: Intact left hip arthroplasty. 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, unspecified type documented in this encounter [facility] Summary Purpose Family History No Family History Records FoundNo Family History Records FoundNo Family History Records Found Advance Directives No Advanced Directives Records FoundNo Advanced Directives Records FoundNo Advanced Directives Records Found Additional Source Comments INFORMATION SOURCE (unrecogn ized section and content) DATE CREATED AUTHOR 08/11/2021 [facility] DATE CREATED AUTHOR AUTHOR'S ORGANIZ ATION 05/21/2024 [facility] DATE CREATED AUTHOR AUTHOR'S ORGANIZ ATION 06/01/2024 [facility] EPIC Reason for Visit (unrecogniz ed section and content) Reason Onset Date Comments Med Refill 06/08/2024 Care Teams (unrecognized sec tion and content) 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 [employer] [facility]. provides no warranty or guarantee of the accuracy or completeness of information in this document.
[2024-06-27 11:51] LABS: Basophils Absolute Auto 0.1 10^3/uL (0.0-0.1); Basophils Percent Auto 1.2 % (0.2-2.0); Eosinophils Absolute Auto 0.3 10^3/uL (0.0-0.7); Hematocrit 33.3 % (36.0-48.0); Hemoglobin 10.9 g/dL (12.0-16.0); Immature Granulocytes Abs Auto 0.01 10^3/uL (0.00-0.03); Immature Granulocytes Pct Auto 0.2 % (0.0-0.5); Lymphocytes Absolute Auto 0.9 10^3/uL (1.2-3.8); Mean Corpuscular HGB Conc 32.7 g/dL (29.9-35.2); Mean Corpuscular Hemoglobin 30.7 pg (26.7-34.0); Mean Corpuscular Volume 93.8 fL (81.0-99.0); Mean Platelet Volume 9.6 fL (9.5-13.5); Monocytes Absolute Auto 0.5 10^3/uL (0.3-0.8); Monocytes Percent Auto 9.3 % (1.7-12.0); Neutrophils Absolute Auto 3.1 10^3/uL (1.4-6.5); Neutrophils Percent Auto 64.3 % (43.0-75.0); Platelet Count 271 10^3/uL (150-450); Red Blood Count 3.55 10^6/uL (4.20-5.40); Red Cell Distribution Width 13.2 % (11.0-15.0); White Blood Count 4.8 10^3/uL (4.0-11.0)
[2024-06-27 12:00] LABS: Anion Gap 15.4; BUN Creatinine Ratio 13.4; Calcium 9.5 mg/dL (8.5-10.1); Chloride 105 mmol/L (98-107); Estimated GFR (African America 38 (>=60 mL/min/1.73m^2); Estimated GFR (Non-African Ame 31 (>=60 mL/min/1.73m^2); Glucose 111 mg/dL (74-106); Potassium 4.4 mmol/L (3.5-5.1); Sodium 142 mmol/L (136-145)
== END 2024-06-27 11:32 | disposition home or self-care (01) ==
LOC: LAB 11:32
PROVIDERS: PCP Nurse Practitioner; Visit Provider Nurse Practitioner
DX: E11.22 Type 2 diabetes mellitus with diabetic chronic kidney disease (principal); N18.30 Chronic kidney disease, stage 3 unspecified
CPT/HCPCS: 36415; 80048; 85025

== ENCOUNTER 2024-07-10 13:38 | Outpatient (OUT) | payer MEDICARE, SELFPAY ==
--- NOTE | 2024-07-10 15:00 | P.CN_ITS ---
Consult Note: HPI Data of Consult Patient: new to practice Consult date: 07/10/24 Requesting Physician: Jackson Nathan MD Primary Care Provider: Chloe Colmenares NP Consult Narrative Reason for consult: low back pain Narrative: 83yof who presents for evaluation. longstanding low back pain history, weakness into bilateral lower extremities. previous lumbar fusion in 2005, which is when pain began. has continued in a series of provider directed home exercises >6 weeks, without much benefit. uses pain meds as needed. denies adverse med side effects. cc:: CC: Jackson Nathan MD Review of Systems ROS Status of ROS 10 or more systems reviewed and unremark able except as noted in history and below Meds Home Medications and Allergies Allergies Allergy/AdvReac Type Severity Reaction Status Date / Time iodine Allergy Unknown Unknown Verified 07/10/24 15:02 Exam Narrative Exam Narrative: Psych-alert and oriented x 3. Attentive and appropriate, constitutionally normal, displays normal mood and affect per situation. There are no obvious deficits in memory, reasoning, or intellect.? Skin-no obvious rashes, bruising, erythema noted to the patient's area of pain.? Extremities- extremities are warm with minimal edema and palpable pulses. Lumbar-tenderness to palpation noted in the lumbar spine and paraspinal musculature. Pain is elicited with flexion, extension, and lateral rotation of the lumbar spine. Range of motion is diminished with these motions. Facet loading maneuvers are positive.? Strength-noted to be unremarkable with the exception of decreased strength rated at 4 out of 5 in bilateral quadriceps femoris, anterior tibialis. Sensory-no notable sensory deficits in the bilateral lower extremities to touch or pinprick in all dermatomal distributions with the exception to decreased sensation to the bilateral L4, 5 dermatomal distribution Coordination remains intact.? Gait remains non-antalgic. Assessment and Plan Assessment and Plan (1) Lumbar stenosis with neurogenic claudication: (2) Lumbar postlaminectomy syndrome: Plan 83yof who presents for evaluation. failed conservative measures, as noted. given worsening symptoms and exam findings, prudent to update lumbar mri without contrast. she is in agreement. meds reviewed, no changes. follow up after imaging.
== END 2024-07-10 13:39 | disposition home or self-care (01) ==
LOC: PM 13:39
PROVIDERS: PCP Nurse Practitioner; Visit Provider Anesthesiology
DX: M48.062 Spinal stenosis, lumbar region with neurogenic claudication (principal); M96.1 Postlaminectomy syndrome, not elsewhere classified
CPT/HCPCS: G0463

== ENCOUNTER 2024-10-16 14:08 | Outpatient (OUT) | payer MEDICARE, SELFPAY ==
--- OUTSIDE RECORDS SUMMARY | 2024-10-16 14:27 | XMS_ITS | CCD ---
Author Organization [facility] Care Team Providers Care Chief Dietitian Name Role Phone REQUEST, DR NONE LISTED [...] Consulting Unavailable CLINTON, WILEY Consulting Unavailable Evans, Tejas Consulting Unavailable HOUSE, DR PINZON Attending Unavailable HOUSE, DR PINZON Admitting Unavailable HOUSE, DR PINZON Primary Care Unavailable HOUSE, DR PINZON Consulting Unavailable REQUEST, NONE LISTED Admitting Unavaila ble REQUEST, NONE LISTED Consulting Unavaila ble REQUEST, NONE LISTED Attending Unavaila ble HOUSE, DR PINZON Primary Care Unavailable JOSE ELIAS, TOMASA Marcano Referring Unavailable HOUSE, JEROMY Brown Primary Care Unavailable JOSE ELIAS, TOMASA Marcano Attending Unavailable JOSE ELIAS, TOMASA Marcano Referring Unavailable HOUSE, JEROMY Brown Primary Care Unavailable JOSE ELIAS, TOMASA Marcano Referring Unavailable HOUSE, JEROMY Brown Primary Care Unavailable JOSE ELIAS, TOMASA Marcano Referring Unavailable AICHHOLShailesh, CHLOE J Primary Care Unavailable JOSE ELIAS, TOMASA Marcano Admitting Unavailable JOSE ELIAS, TOMASA Marcano Attending Unavailable HOUSE, JEROMY Brown Primary Care Unavailable Dedra GEAR SETTER, Chloe Unavailable Anton ELIZALDE, Soy Primary Care Provider [phone] Unallocatgopi ELIZALDE, Noms Provider Primary Care [facility] Soy Walton MD Primary Care Provider Dedra GEAR SETTER, Chloe Unavailable Jac ELIZALDE, Jackson Valdez Attending Unavailable DEDRA, CHLOE Attending Unavailable BRENNEN NAGEL Attending Unavailable BRENNEN NAGEL Referring Unavailable DEDRA, CHLOE Attending Unavailable DEDRA, CHLOE Attending Unavailable WILLARD MENENDEZ Attending Unavailable DEDRA, CHLOE Attending Unavailable JOSE ELIAS, TOMASA Marcano Attending Unavailable TOMASA MOCTEZUMA Referring Unavailable ENEDINA PHELPS Attending Unavailable TOMASA MOCTEZUMA Referring Unavailable BRENNEN NAGEL Attending Unavailable DEDRA, CHLOE Attending Unavailable MARY CASTILLO Attending Unavailable BRENNEN NAGEL Referring Unavailable MARY CASTILLO Attending Unavailable BRENNEN NAGEL Referring Unavailable JOSE ELIAS, TOMASA Marcano Attending Unavailable JOSE ELIAS, TOMASA Marcano Attending Unavailable JOSE ELIAS, TOMASA Marcano Attending Unavailable TOMASA MOCTEZUMA Referring Unavailable DEDRA, CHLOE Attending Unavailable Allergies Allergy Classification Reported Allergen(s) Allergy Type Date of Onset Reaction(s) Facility (1 source) Adhesive agent Drug allergy (disorder) 4 [facility] Repository (20 sources) Iodine; Translations: [IODINE] Drug Allergy 0 [facility] Repository (1 source) Latex; Translations: [LATEX] Propensity to adverse reactions to drug (disorder) 4 [facility] (1 source) Pollen; Translations: [POLLEN EXTRACTS] Propensity to adverse reactions to drug (disorder) 0 [facility] Repository (20 sources) Pollen Propensity to adverse reactions 0 [facility] Medications Current Medications Medication Drug Class(es) Dates Sig (Normalized) Sig (Original) acetaminophen 500 mg oral tablet (20 sources) take 1 tablet by mouth every six hours as needed acetaminophen (Tylenol) 500 MG tablet Take 500 mg by mouth every 6 (six) hours if needed Active amoxicillin 500 mg oral tablet (3 sources) Penicillin-class Antibacterial Start: 5 take 4 tablets by mouth once at mealtime amoxicillin (Amoxil) 500 MG tablet Indications: S/P total left hip arthroplasty 4 tabs PO once 30-60 mins before procedure with food 4 tablet 3 10/12/2024 Active 24 hr dilTIAZem hydrochloride 120 mg extended release oral capsule (20 sources) Calcium Channel Abel Start: 4 End: 5 take 1 capsule by mouth once daily dilTIAZem CD (Cardizem CD) 120 MG 24 hr capsule Indications: 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, unspecified type Take 1 capsule (120 mg) by mouth Daily 90 capsule 1 10/10/2024 01/08/2025 Active donepezil hydrochloride 5 mg oral tablet (20 sources) Start: 4 End: 5 take 1 tablet by mouth at bedtime donepezil (Aricept) 5 MG tablet Indications: Memory impairment of gradual onset Take 1 tablet (5 mg) by mouth at bedtime 90 tablet 1 10/10/2024 01/08/2025 Active ferrous sulfate 325 mg delayed release oral tablet (15 sources) Start: End: 4 take 1 tablet by mouth at mealtime ferrous sulfate (Fe Tabs) 325 (65 Fe) MG EC tablet Indications: Primary osteoarthritis of left hip Take 1 tablet (325 mg) by mouth in the morning. Take with meals. Do not crush, chew, or split.. 30 tablet 04/25/2024 05/25/2024 Active hydroCHLOROthiazide 12.5 mg / valsartan 80 mg oral tablet (20 sources) Thiazide Diuretic, Angiotensin 2 Receptor Abel Start: 4 End: 5 take 1 tablet by mouth once daily valsartan-hydroCHL OROthiazide (Diovan-HCT) 80-12.5 MG tablet Indications: Essential hypertension (CMS/HCC) Take 1 tablet by mouth Daily 90 tablet 1 10/10/2024 01/08/2025 Active melatonin 10 mg oral tablet (7 sources) melatonin 10 MG tablet Take 10 mg by mouth as needed at bedtime (insomia) Active oxyCODONE hydrochloride 5 mg oral tablet (6 sources) Opioid Agonist Start: 4 End: 4 take 1 tablet by mouth every six hours for pain oxyCODONE (Roxicodone) 5 MG immediate release tablet Indications: Postoperative pain Take 1 tablet (5 mg) by mouth every 6 (six) hours if needed for moderate pain for up to 5 days 20 tablet 05/19/2024 05/24/2024 Active Start: 05-16-2024 End: 05-21-2024 take 1 capsule by mouth every six hours for pain oxyCODONE (Oxy-IR) 5 MG immediate release capsule Indications: Postoperative pain Take 1 capsule (5 mg) by mouth every 6 (six) hours if needed for severe pain for up to 5 days 20 capsule 05/16/2024 05/19/2024 Discontinued simvastatin 10 mg oral tablet (20 sources) HMG-CoA Reductase Inhibitor Start: 02-29-2024 End: 01-08-2025 take 1 tablet by mouth at bedtime simvastatin (Zocor) 10 MG tablet Indications: Other hyperlipidemia (CMS/HCC) Take 1 tablet (10 mg) by mouth at bedtime 90 tablet 1 10/10/2024 01/08/2025 Active traMADol hydrochloride 50 mg oral tablet (20 sources) Opioid Agonist Start: 09-18-2024 End: 11-09-2024 take 1 tablet by mouth every eight hours for pain traMADol (Ultram) 50 MG tablet Indications: Degeneration of intervertebral disc of lumbar region with discogenic back pain and lower extremity pain Take 1 tablet (50 mg) by mouth every 8 (eight) hours if needed for moderate pain 90 tablet 2 10/10/2024 11/09/2024 Active Start: 06-08-2024 End: 07-08-2024 take 1 tablet by mouth every eight hours for pain traMADol (Ultram) 50 MG tablet Indications: Chronic low back pain, unspecified back pain laterality, unspecified whether sciatica present Take 1 tablet (50 mg) by mouth every 8 (eight) hours if needed for severe pain 90 tablet 2 06/08/2024 07/08/2024 Active Start: 04-03-2024 End: 05-31-2024 take 1 tablet by mouth every eight hours for pain traMADol (Ultram) 50 MG tablet Indications: Chronic low back pain, unspecified back pain laterality, unspecified whether sciatica present Take 1 tablet (50 mg) by mouth every 8 (eight) hours if needed for moderate pain 90 tablet 1 05/01/2024 05/31/2024 Active Completed/Discontinued Medications Medication Drug Class(es) Dates Sig (Normalized) Sig (Original) cycloSPORINE (Restasis) 0.05 % ophthalmic emulsion (20 sources) End: 07-04-2024 take 1 drop(s) into the eye(s) in the morning cycloSPORINE (Restasis) 0.05 % ophthalmic emulsion 1 drop in the morning. 07/04/2024 Discontinued (Therapy completed) take 1 drop(s) into the eye(s) in the morning cycloSPORINE (Restasis) 0.05 % ophthalmi c emulsion 1 drop in the morning. Active Problems Active Problems Problem Classification Problem Date Documented Date Episodic/Chronic Cardiac dysrhythmias (20 sources) Conduction disorder of the heart; Translations: [Unspecified premature depolarization] Onset: 09-13-2023 09-13-2023 Chronic Chronic kidney disease (20 sources) Chronic kidney disease stage 3B ; Translations: [Chronic kidney disease, stage 3b (HCC)] Onset: 10-26-2023 04-26-2024 Chronic Delirium, dementia, and amnestic and other cognitive disorders (20 sources) Dementia; Translations: [Unspecified dementia without behavioral disturbance] Onset: 04-26-2024 04-26-2024 Chronic Diabetes mellitus with complications (20 sources) Chronic kidney disease due to type 2 diabetes mellitus; Translations: [Type 2 diabetes mellitus with diabetic chronic kidney disease] Onset: 04-26-2024 04-26-2024 Chronic Diabetes mellitus without complication (20 sources) 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s; Translations: [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] Onset: 02-18-2021 09-13-2023 Chronic Disorders of lipid metabolism (20 sources) Hyperlipidemia; Translations: [Other hyperlipidemia] Onset: 09-13-2023 09-13-2023 Chronic Essential hypertension (20 sources) Essential (primary) hypertension; Translations: [Essential hypertension] Onset: 02-18-2021 09-13-2023 Chronic Glaucoma (20 sources) Glaucoma; Translations: [Unspecified glaucoma] Onset: 10-26-2023 10-26-2023 Chronic Malignant neoplasm without specification of site (4 sources) Malignant neoplastic disease; Translations: [Malignant (primary) neoplasm, unspecified] Onset: 10-26-2023 10-26-2023 Chronic Osteoarthritis (20 sources) Primary coxarthrosis, bilateral; 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] Onset: 09-13-2023 09-13-2023 Chronic Other connective tissue disease (1 source) Presence of left artificial hip joint; Translations: [Presence of left artificial hip joint] Onset: 05-17-2024 Chronic Other connective tissue disease (20 sources) History of repair of hip joint; Translations: [Presence of right artificial hip joint] Onset: 10-26-2023 10-26-2023 Chronic Other connective tissue disease (8 sources) History of total hip arthroplasty; Translations: [Presence of left artificial hip joint] 06-27-2024 Chronic Other nervous system disorders (20 sources) Difficulty walking; Translations: [Difficulty in walking, not elsewhere classified] Onset: 05-20-2024 05-20-2024 Chronic Other nervous system disorders (2 sources) Postoperative pain ; Translations: [Other acute postprocedural pain] 05-19-2024 Episodic Other upper respiratory disease (20 sources) Allergic rhinitis; Translations: [Allergic rhinitis, unspecified] Onset: 10-26-2023 10-26-2023 Chronic Spondylosis; intervertebral disc disorders; other back problems (20 sources) Spondylosis without myelopathy or radiculopathy, lumbar region; Translations: [Degeneration of lumbar intervertebral disc] Onset: 02-18-2021 02-29-2024 Chronic Unclassified (1 source) Degenerative Joint Disease Left Hip Onset: 05-17-2024 Past or Other Problems Problem Classification Problem Date Documented Da te Episodic/Chronic Abdominal pain (1 source) Unspecified abdominal pain; Translations: [UNSPECIFIED ABDOMINAL PAIN] Onset: 02-18-2021 Episodic Acute and unspecified renal failure (20 sources) Acute renal failure syndrome; Translations: [Acute kidney failure, unspecified] Onset: 03-01-2024 Resolved: 04-26-2024 04-26-2024 Episodic Fluid and electrolyte disorders (1 source) Dehydration; Translations: [DEHYDRATION] Onset: 02-18-2021 Episodic Genitourinary symptoms and ill-defined conditions (1 source) Personal history of urinary (tract) infections; Translations: [PERS HX URINARY TRACT INFECTIONS] Onset: 02-21-2021 Episodic Hemorrhoids (20 sources) Hemorrhoids; Translations: [Unspecified hemorrhoids] Onset: 10-26-2023 10-26-2023 Episodic Immunizations and screening for infectious disease (16 sources) Encounter for immunization; Translations: [Needs influenza immunization] Onset: 07-15-2021 Episodic Malaise and fatigue (1 source) Weakness; Translations: [WEAKNESS] Onset: 02-18-2021 Episodic Mood disorders (20 sources) Mood disorders Onset: 10-26-2023 10-26-2023 Other aftercare (1 source) terminal system operator (current) use of aspirin; Translations: [FILTERATION OPERATOR CURRENT USE OF ASPIRIN] Onset: 02-18-2021 Episodic Other aftercare (1 source) Other long distance operator (current) drug therapy; Translations: [OTH USP CURRENT DRUG THERAPY] Onset: 02-18-2021 Episodic Other aftercare (1 source) terminal system operator (current) use of oral hypoglycemic drugs; Translations: [FILTERATION OPERATOR USE ORAL HYPOGLYCEMIC DX] Onset: 02-18-2021 Episodic Other gastrointestinal disorders (3 sources) Diarrhea, unspecified; Translations: [DIARRHEA UNSPECIFIED] Onset: 02-19-2021 Episodic Other non-epithelial cancer of skin (20 sources) Squamous cell carcinoma of skin of trunk; Translations: [Squamous cell carcinoma of skin of other part of trunk] Onset: 10-26-2023 10-26-2023 Episodic Other non-traumatic joint disorders (20 sources) Hip pain; Translations: [Other acute postprocedural pain] Onset: 05-20-2024 05-20-2024 Episodic Other nutritional; endocrine; and metabolic disorders (20 sources) Unintentional weight loss; Translations: [Abnormal weight loss] Onset: 02-29-2024 02-29-2024 Episodic Other skin disorders (20 sources) Seborrheic keratosis; Translations: [Other seborrheic keratosis] Onset: 09-13-2023 09-13-2023 Episodic Residual codes; unclassified (1 source) Acquired absence of other specified parts of digestive tract; Translations: [ACQ ABSENCE OTH PART DIGESTV TRACT] Onset: 02-18-2021 Episodic Residual codes; unclassified (1 source) Acquired absence of both cervix and uterus; Translations: [ACQUIRED ABSENCE BOTH CERVIX AND UTERUS] Onset: 02-18-2021 Episodic Residual codes; unclassified (20 sources) Memory impairment; Translations: [Other amnesia] Onset: 12-21-2023 12-21-2023 Episodic Spondylosis; intervertebral disc disorders; other back problems (20 sources) Chronic low back pain; Translations: [Chronic low back pain, unspecified back pain laterality, unspecified whether sciatica present] Onset: 10-26-2023 06-08-2024 Episodic Urinary tract infections (20 sources) Urinary tract infection, site not specified; Translations: [Acute cystitis] Onset: 02-18-2021 Resolved: 04-26-2024 Episodic Viral infection (1 source) Viral infection, unspecified; Translations: [VIRAL INFECTION UNSPECIFIED] Onset: 02-21-2021 Episodic Results Test Name Value Interpretation Reference Range Facility XR Hip - left 3 [facility] Result: 10/12/2024: AP and lateral of left hip showed acceptable position and alignment of left total hip arthroplasty. There was no evidence of loosening of the acetabular cup or femoral stem. There is a retained broken drill head from surgery but no signs of loosening. Femoral head was well centered in the acetabular liner without evidence of asymmetric or accelerated wear. There was no gross evidence of fracture and/or dislocation. Impression: Unremarkable left total hip arthroplasty. Brennen Nagel [employer] [facility]narrative[facility] HbA1c (Bld) [Mass fraction]o n 10-10-2024 Interpretation and review of laboratory results Normal [facility] Cell countson 10-10-2024 HbA1c (Bld) [Mass fraction] 5.30 % [facility] ALL BASIC METABOLIC PANELon 06-27-2024 Anion gap [Moles/Vol] 15.4 mmol/L [facility] Calcium [Mass/Vol] 9.5 mg/dL 8.5 - 10. 1 mg/dL [facility] Chloride [Moles/Vol] 105 mmol/L 98 - 10 7 mmol/L [facility] CO2 [Moles/Vol] 26 mmol/L 21.0 - 32.0 mmol/L [facility] Creatinine [Mass/Vol] 1.57 mg/dL High 0.55 - 1.02 mg/dL [facility] GFR/1.73 sq M.predicted CKD-EPI (S/P/Bld) [Vol rate/Area] 38 Low >=60 mL/min/1.73m 2 [facility] Glucose [Mass/Vol] 111 mg/dL High 74 - 106 mg/dL [facility] Interpretation and review of laboratory results Abnormal [facility] Potassium [Moles/Vol] 4.4 mmol/L 3.5 - 5.1 mmol/L [facility] Sodium [Moles/Vol] 142 mmol/L 136 - 145 mmol/L [facility] TB EGFR-NON AF SLOVENIAN 31 Low >=60 mL/min/1.73m 2 [facility] [employer] Urea nitrogen [Mass/Vol] 21 mg/dL High 7.0 - 18.0 mg/dL [facility] Urea nitrogen/Creatinine [Mass ratio] 13.4 mg/mg [facility] [employer] XR Hip - left 3 [facility] 10-2 Imaging Result: June 27, 2024 x-rays AP and lateral left hip demonstrate total hip replacement in good position alignment without signs of loosening fracture or failure. Impression: Stable appearance of left total hip replacement Bobby Moctezuma D.O. [facility] [employer] [facility] observation (narrative) [facility] HGB A1C (GLYCO-HGB)on 2023 Glucose [Mass/Vol] 103 mg/dL Normal [facility] Comment on above: Performed By: #### H A1C #### [facility] ([id number]) [address] [place] [address] HbA1c (Bld) [Mass fraction] 5.2 % Normal 4.4-5.6 [facility] Comment on above: Result Comment: NOTE ADA Guidelines Result HgbA1c Normal : less than 5.7 % Prediabetes : 5.7 % to 6.4 % Diabetes : > 6.4 % Use with caution in patients with abnormal hemoglobin variants as the half-life of red blood cells and in vivo glycation rates are affected. Performed By: #### H A1C #### [facility] ([id number]) [address], [address] [place] [address] BASIC METABOLIC PANLon 04-21 Anion gap [Moles/Vol] 13 mmol/L Normal 5-15 [facility] Comment on above: Performed By: #### C BCA, BMP #### [facility] ([id number]) [address], [address] [place] [address] Calcium [Mass/Vol] 9.7 mg/dL Normal 8.5-10.5 [facility] Comment on above: Performed By: #### C BCA, BMP #### [facility] ([id number]) [address], [address] [place] [address] Chloride [Moles/Vol] 103 mmol/L Normal 98-109 [facility] Comment on above: Performed By: #### C BCA, BMP #### [facility] ([id number]) [address] [place] [address] CO2 [Moles/Vol] 25 mmol/L Normal 22-32 [facility] Comment on above: Performed By: #### C BCA, BMP #### [facility] ([id number]) [address], [address] [place] [address] Creatinine [Mass/Vol] 1.43 mg/dL High 0.40-1.00 [facility] Comment on above: Result Comment: METH OD TRACEABLE TO IDMS STANDARD Performed By: #### C BCA, BMP #### [facility] ([id number]) [address] [place] [address] GFR/1.73 sq M.predicted among non-blacks MDRD (S/P/Bld) [Vol rate/Area] 36 mL/min/{1.73_m2} Low >59 [facility] Comment on above: Result Comment: Reported eGFR is based on the CKD-EPI 2020 equation that does not use a race coefficient. Performed By: #### C BCA, BMP #### [facility] ([id number]) [address] [place] [address] Glucose [Mass/Vol] 122 mg/dL High 65-99 [facility] Comment on above: Performed By: #### C BCA, BMP #### [facility] ([id number]) [address] [place] [address] Potassium [Moles/Vol] 3.7 mmol/L Normal 3.5-5.0 [facility] Comment on above: Performed By: #### C LARRY, BMP #### [facility] ([id number]) [address] [place] [address] Sodium [Moles/Vol] 141 mmol/L Normal 134-146 [facility] Comment on above: Performed By: #### C LARRY, BMP #### [facility] ([id number]) [address] [address] [address] [place] [address] Urea nitrogen [Mass/Vol] 30 mg/dL High 5-27 [facility] Comment on above: Performed By: #### C LARRY, BMP #### [facility] ([id number]) [address] [address] CBC AND AUTO DIFFon 04-21-20 24 ABSOLUTE BASOPHIL 0.1 X10E9/L Normal 0.0-0.2 [facility] Comment on above: Performed By: #### C LARRY, BMP #### [facility] ([id number]) [address] [facility] [address] [place] [address] ABSOLUTE NEUTROPHIL 3.4 X10E9/L Normal 1.5-6.6 [facility] Comment on above: Performed By: #### C LARRY, BMP #### [facility] ([id number]) [address] [address] [place] [address] Basophils/100 WBC (Bld) 1.0 % Normal [facility] Comment on above: Performed By: #### C LARRY, BMP #### [facility] ([id number]) [address] [address] [place] [address] Eosinophils (Bld) [#/Vol] 0.2 10*3/uL Normal 0.0-0.4 [facility] Comment on above: Performed By: #### C LARRY, BMP #### [facility] ([id number]) [address] [place] [address] Eosinophils/100 WBC (Bld) 4.3 % Normal [facility] Comment on above: Performed By: #### C LARRY, BMP #### [facility] ([id number]) [address] [place] [address] Erythrocyte distribution width (RBC) [Ratio] 15.3 % High 11.5-15.0 [facility] Comment on above: Performed By: #### C LARRY, BMP #### [facility] ([id number]) [address] [place] [address] Hematocrit (Bld) [Volume fraction] 32.6 % Low 35-47 [facility] Comment on above: Performed By: #### C LARRY, BMP #### [facility] ([id number]) [address] [place] [address] Hemoglobin (Bld) [Mass/Vol] 11.1 g/dL Low 11.7-15.5 [facility] Comment on above: Performed By: #### C LARRY, BMP #### [facility] ([id number]) [address] [place] [address] Lymphocytes (Bld) [#/Vol] 1.1 10*3/uL Normal 1.0-3.5 [facility] Comment on above: Performed By: #### C LARRY, BMP #### [facility] ([id number]) [address] [place] [address] Lymphocytes/100 WBC (Bld) 20.0 % Normal [facility] Comment on above: Performed By: #### C LARRY, BMP #### [facility] ([id number]) [address] [place] [address] MCH (RBC) [Entitic mass] 31.0 pg Normal 27-34 [facility] Comment on above: Performed By: #### C LARRY, BMP #### [facility] ([id number]) [address] [place] [address] MCHC (RBC) [Mass/Vol] 34.0 g/dL Normal 32-36 [facility] Comment on above: Performed By: #### C LARRY, BMP #### [facility] ([id number]) [address] [place] [address] MCV (RBC) [Entitic vol] 91 fL Normal 80-100 [facility] Comment on above: Performed By: #### C LARRY, BMP #### [facility] ([id number]) [address] [place] [address] Monocytes (Bld) [#/Vol] 0.6 10*3/uL Normal 0-0.9 [facility] Comment on above: Performed By: #### C LARRY, BMP #### [facility] ([id number]) [address] [place] [address] Monocytes/100 WBC (Bld) 11.7 % Normal [facility] Comment on above: Performed By: #### C LARRY, BMP #### [facility] ([id number]) [address] [place] [address] Neutrophils/100 WBC (Bld) 63.0 % Normal [facility] Comment on above: Performed By: #### C LARRY, BMP #### [facility] ([id number]) [address] [place] [address] Platelet mean volume (Bld) [Entitic vol] 8.3 fL Normal 7-12 [facility] Comment on above: Performed By: #### C BCA, BMP #### [facility] ([id number]) [address] [address] [place] [address] Platelets (Bld) [#/Vol] 241 10*3/uL Normal 150-450 [facility] Comment on above: Performed By: #### C BCA, BMP #### [facility] ([id number]) [address] [place] [address] RBC COUNT 3.58 X10E12/L Low 3.80-5.20 [facility] Comment on above: Performed By: #### C BCA, BMP #### [facility] ([id number]) [address] [place] [address] WBC (Bld) [#/Vol] 5.4 10*3/uL Normal 4.0-11.0 [facility] Comment on above: Performed By: #### C BCA, BMP #### [facility] ([id number]) [address] [place] [address] CULTURE URINEon 03-11-2021 CULTURE URINE Culture Observations: LIGHT GROWTH OF MIXED GENITAL NASIR. NO POTENTIAL PATHOGENS SEEN. Normal [facility] Comment on above: Performed By: #### C BC #### [facility] [address] [place] [address] Justina Jovita UA RANDOM W/MICROSCOPICon BACTERIA TRACE Abnormal NONE SEEN [facility] Comment on above: Performed By: #### C BC #### [facility] [address] [place], [place] [address] Justina Jovita Bilirubin Ql (U) Negative Normal NEGATIVE [facility] Comment on above: Performed By: #### C BC #### [facility] [address] [place], [place] [address] Justina Jovita CAST NONE SEEN Normal NONE SEEN [facility] Comment on above: Performed By: #### C BC #### [facility] [address] [place], [place] [address] Justina Jovita Clarity (U) SL CLOUDY Abnormal CLEAR [facility] Comment on above: Performed By: #### C BC #### [facility] [address] [place], [place] [address] Justina Joviat Color (U) LT. YELLOW Normal YELLOW [facility] Comment on above: Performed By: #### C BC #### [facility] [address] [place] [address] Justina Jovita Crystals LM Nom (Urine sed) NONE SEEN Normal NONE SEEN [facility] Comment on above: Performed By: #### C BC #### [facility] [address] [place] [address] Justina Jovita Epithelial cells LM Ql (Urine sed) FEW Abnormal NONE SEEN /RARE [facility] Comment on above: Performed By: #### C BC #### [facility] [address] [place] [address] Justina Jovita Glucose Ql (U) Negative Normal NEGATIVE [facility] Comment on above: Performed By: #### C BC #### [facility] [address] [place] [address] Justina Jovita Hemoglobin Ql (U) Negative Normal NEGATIVE [facility] Comment on above: Performed By: #### C BC #### [facility] [address] [place] [address] Justina Jovita Ketones Ql (U) Negative Normal NEGATIVE [facility] Comment on above: Performed By: #### C BC #### [facility] [address] [place] [address] Justina Jovita LEUKOCYTES SMALL Abnormal NEGATIVE [facility] Comment on above: Performed By: #### C BC #### [facility] [address] [place] [address] Justina Jovita MUCOUS SMALL Abnormal NONE SEEN [facility] Comment on above: Performed By: #### C BC #### [facility] [address] [place] [address] Justina Jovita Nitrite Ql (U) Negative Normal NEGATIVE [facility] Comment on above: Performed By: #### C BC #### [facility] [address] [place] [address] Justina Jovita pH (U) 6.5 [pH] Normal 5-9 [facility] Comment on above: Performed By: #### C BC #### [facility] [address] [place], [place] [address] Justina Jovita RBC 0-2 Normal 0-2 [facility] Comment on above: Performed By: #### C BC #### [facility] [address] [place], [place] [address] Justinajoselyn Hussein SPEC GRAVITY 1.020 Normal 1.005-<=1.025 [facility] Comment on above: Performed By: #### C BC #### [facility] [address] [place], [place] [address] Justina Jovita UA PROTEIN Negative Normal NEGATIVE/ TRACE [facility] Comment on above: Performed By: #### C BC #### [facility] [address] [place], [place] [address] Justina Jovita Urobilinogen Qn (U) 0.2 {Juan'U}/dL Normal 0.2 - 1. 0 [facility] Comment on above: Performed By: #### C BC #### [facility] [address] [place], [place] [address] Justina Jovita WBC 5-10 Abnormal NONE SEEN [facility] Comment on above: Performed By: #### C BC #### [facility] [address] [place], [place] [address] Justina Jovita CBC AUTO DIFFon 02-19-2021 BASO # 0.0 103/ul Normal 0.0-0.1 [facility] Comment on above: Performed By: #### C BC #### [facility] [address] [place], [place] [address] Justina Jovita Basophils/100 WBC (Bld) 0.6 % Normal 0.2-2.0 [facility] Comment on above: Performed By: #### C BC #### [facility] [address] [place], [place] [address] Justina Jovita EO # 0.0 103/ul Normal 0.0-0.7 [facility] Comment on above: Performed By: #### C BC #### [facility] [address] [place], [place] [address] Justina Jovita Eosinophils/100 WBC (Bld) 0.8 % Critically low 0.9-7.0 [facility] Comment on above: Performed By: #### C BC #### [facility] [address] [place] [address] Justina Jovita Erythrocyte distribution width (RBC) [Ratio] 13.3 % Normal 11.0-15.0 [facility] Comment on above: Performed By: #### C BC #### [facility] [address] [place] [address] Justina Jovita Hematocrit (Bld) [Volume fraction] 37.4 % Normal 36.0-48.0 [facility] Comment on above: Performed By: #### C BC #### [facility] [address] [place] [address] Justina Jovita Hemoglobin (Bld) [Mass/Vol] 12.7 g/dL Normal 12.0-16.0 [facility] Comment on above: Performed By: #### C BC #### [facility] [address] [place] [address] Justina Jovita IG # 0.02 10e3/ul Normal 0.00-0.03 [facility] Comment on above: Performed By: #### C BC #### [facility] [address] [place] [address] Justina Jovita IG % 0.4 % Normal 0.0-0.5 [facility] Comment on above: Performed By: #### C BC #### [facility] [address] [place] [address] Justina Jovita LYMPH # 0.7 103/ul Critically low 1.2-3.8 [facility] Comment on above: Performed By: #### C BC #### [facility] [address] [place] [address] Justina Jovita Lymphocytes/100 WBC (Bld) 14.1 % Critically low 20.5-60.0 [facility] Comment on above: Performed By: #### C BC #### [facility] [address] [place] [address] Justina Jovita MANUAL DIFF REQ NO Normal [facility] Comment on above: Performed By: #### C BC #### [facility] [address] [place], [place] [address] Justinajoselyn Hussein MCH (RBC) [Entitic mass] 29.1 pg Normal 26.7-34.0 [facility] Comment on above: Performed By: #### C BC #### [facility] [address] [place], [place] [address] Justinajoselyn Hussein MCHC (RBC) [Mass/Vol] 34.0 g/dL Normal 29.9-35.2 [facility] Comment on above: Performed By: #### C BC #### [facility] [address] [place], [place] [address] Justina Jovita MCV (RBC) [Entitic vol] 85.6 fL Normal 81.0-99.0 [facility] Comment on above: Performed By: #### C BC #### [facility] [address] [place] [address] Justinajoselyn Chairezen MONO # 0.4 103/ul Normal 0.3-0.8 [facility] Comment on above: Performed By: #### C BC #### [facility] [address] [place], [place] [address] Justina Jovita Monocytes/100 WBC (Bld) 7.4 % Normal 1.7-12.0 [facility] Comment on above: Performed By: #### C BC #### [facility] [address] [place], [place] [address] Justinajoselyn Chairezen NEUT # 3.8 103/ul Normal 1.4-6.5 [facility] Comment on above: Performed By: #### C BC #### [facility] [address] [place], [place] [address] Justina Jovita Neutrophils/100 WBC (Bld) 76.7 % Critically high 43.0-75.0 [facility] Comment on above: Performed By: #### C BC #### [facility] [address] [place], [place] [address] Justina Jovita Platelet mean volume (Bld) [Entitic vol] 9.5 fL Normal 9.5-13.5 [facility] Comment on above: Performed By: #### C BC #### [facility] [address] [place] [address] Justina Jovita PLT 259 103/ul Normal 150-450 [facility] Comment on above: Performed By: #### C BC #### [facility] [address] [place] [address] Justinajoselyn Chairezen RBC 4.37 106/ul Normal 4.20-5.40 [facility] Comment on above: Performed By: #### C BC #### [facility] [address] [place] [address] Justina Jovita WBC 5.0 103/ul Normal 4.0-11.0 [facility] Comment on above: Performed By: #### C BC #### [facility] [address] [place] [address] Justinajoselyn Hussein ER URINE PROFILEon 1 Bilirubin Ql (U) Negative Normal NEGATIVE [facility] Comment on above: Performed By: #### E RUR #### [facility] [address] [place] [address] Justina Jovita Clarity (U) CLEAR Normal CLEAR [facility] Comment on above: Performed By: #### E RUR #### [facility] [address] [place] [address] Justina Jovita Color (U) LT. YELLOW Normal YELLOW [facility] Comment on above: Performed By: #### E RUR #### [facility] [address] [place], [place] [address] Justina Hussein ERUAHD A micrscopic examination will be performed if indicated. Normal [facility] Comment on above: Performed By: #### E RUR #### [facility] [address] [place] [address] Justina Jovita Glucose Ql (U) Negative Normal NEGATIVE [facility] Comment on above: Performed By: #### E RUR #### [facility] [address] [place] [address] Justina Jovita Hemoglobin Ql (U) Negative Normal NEGATIVE [facility] Comment on above: Performed By: #### E RUR #### [facility] [address] [place] [address] Justina Hussein Ketones Ql (U) TRACE Abnormal NEGATIVE [facility] Comment on above: Performed By: #### E RUR #### [facility] [address] [place] [address] Justina Jovita LEUKOCYTES Negative Normal NEGATIVE [facility] Comment on above: Performed By: #### E RUR #### [facility] [address] [place] [address] Justina Jovita Nitrite Ql (U) Negative Normal NEGATIVE [facility] Comment on above: Performed By: #### E RUR #### [facility] [address] [place] [address] Justina Hussein pH (U) 5.0 [pH] Normal 5-9 [facility] Comment on above: Performed By: #### E RUR #### [facility] [address] [place] [address] Justina Hussein SPEC GRAVITY >=1.030 Abnormal 1.005-<=1.025 [facility] Comment on above: Performed By: #### E RUR #### [facility] [address] [place] [address] Justina Hussein UA PROTEIN Negative Normal NEGATIVE/ TRACE [facility] Comment on above: Performed By: #### E RUR #### [facility] [address] [place] [address] Justina Hussein UR MICRO IND NOT INDICATED Normal [facility] Comment on above: Performed By: #### E RUR #### [facility] [address] [place] [address] Justina Hussein Urobilinogen Qn (U) 0.2 {Juan'U}/dL Normal 0.2 - 1. 0 [facility] Comment on above: Performed By: #### E RUR #### [facility] [address] [place] [address] Justina Hussein PROF CHEM 8 (BAS METB)on Anion gap [Moles/Vol] 15.2 mmol/L Normal [facility] Comment on above: Performed By: #### B MP #### [facility] [address] [place], [place] [address] Justina Jovita Calcium [Mass/Vol] 9.3 mg/dL Normal 8.4-10.2 [facility] Comment on above: Performed By: #### B MP #### [facility] [address] [place], [place] [address] Justina Jovita Chloride [Moles/Vol] 102 mmol/L Normal 98-107 [facility] Comment on above: Performed By: #### B MP #### [facility] [address] [place] [address] Justina Jovita CO2 [Moles/Vol] 28.5 mmol/L Normal 22.0-30.0 [facility] Comment on above: Performed By: #### B MP #### [facility] [address] [place] [address] Justina Jovita Creatinine [Mass/Vol] 1.35 mg/dL Critically high 0.52-1.04 [facility] Comment on above: Performed By: #### B MP #### [facility] [address] [place] [address] Justina Jovita EGFR-AF SLOVENIAN 46 mL/min/1.73m2 Critically low >=60 [facility] Comment on above: Performed By: #### B MP #### [facility] [address] [place] [address] Justina Jovita EGFR-NON AF SLOVENIAN 38 mL/min/1.73m2 Critically low >=60 [facility] Comment on above: Performed By: #### B MP #### [facility] [address] [place] [address] Justina Jovita Glucose [Mass/Vol] 121 mg/dL Critically high 74-106 [facility] Comment on above: Performed By: #### B MP #### [facility] [address] [place] [address] Justina Jovita Potassium [Moles/Vol] 3.7 mmol/L Normal 3.4-5.0 [facility] Comment on above: Performed By: #### B MP #### [facility] [address] [place] [address] Justina Jovita Sodium [Moles/Vol] 142 mmol/L Normal 137-145 [facility] Comment on above: Performed By: #### B MP #### [facility] [address] [place], [place] [address] Justina Jovita Urea nitrogen [Mass/Vol] 12.0 mg/dL Normal 7.0-17.0 [facility] Comment on above: Performed By: #### B MP #### [facility] [address] [place], [place] [address] Justina Jovita Urea nitrogen/Creatinine [Mass ratio] 8.9 mg/mg Normal [facility] Comment on above: Performed By: #### B MP #### [facility] [address] [place], [place] [address] Justina Jovita CBC AUTO DIFFon 02-16-2021 BASO # 0.0 103/ul Normal 0.0-0.1 [facility] Comment on above: Performed By: #### C BC #### [facility] [address] [place], [place] [address] Justina Jovita Basophils/100 WBC (Bld) 0.6 % Normal 0.2-2.0 [facility] Comment on above: Performed By: #### C BC #### [facility] [address] [place], [place] [address] Justina Jovita EO # 0.1 103/ul Normal 0.0-0.7 [facility] Comment on above: Performed By: #### C BC #### [facility] [address] [place], [place] [address] Justina Jovita Eosinophils/100 WBC (Bld) 1.8 % Normal 0.9-7.0 [facility] Comment on above: Performed By: #### C BC #### [facility] [address] [place], [place] [address] Justina Jovita Erythrocyte distribution width (RBC) [Ratio] 13.3 % Normal 11.0-15.0 [facility] Comment on above: Performed By: #### C BC #### [facility] [address] [place], [place] [address] Justina Jovita Hematocrit (Bld) [Volume fraction] 37.7 % Normal 36.0-48.0 [facility] Comment on above: Performed By: #### C BC #### [facility] [address] [place] [address] Justina Hussein Hemoglobin (Bld) [Mass/Vol] 13.0 g/dL Normal 12.0-16.0 [facility] Comment on above: Performed By: #### C BC #### [facility] [address] [place] [address] Justinajoselyn Hussein IG # 0.02 10e3/ul Normal 0.00-0.03 [facility] Comment on above: Performed By: #### C BC #### [facility] [address] [place] [address] Justinajoselyn Hussein IG % 0.3 % Normal 0.0-0.5 [facility] Comment on above: Performed By: #### C BC #### [facility] [address] [place] [address] Justina Hussein LYMPH # 1.5 103/ul Normal 1.2-3.8 [facility] Comment on above: Performed By: #### C BC #### [facility] [address] [place] [address] Justina Hussein Lymphocytes/100 WBC (Bld) 23.4 % Normal 20.5-60.0 [facility] Comment on above: Performed By: #### C BC #### [facility] [address] [place] [address] Justina Hussein MANUAL DIFF REQ NO Normal [facility] Comment on above: Performed By: #### C BC #### [facility] [address] [place], [place] [address] Justina Hussein MCH (RBC) [Entitic mass] 29.5 pg Normal 26.7-34.0 [facility] Comment on above: Performed By: #### C BC #### [facility] [address] [place] [address] Justina Hussein MCHC (RBC) [Mass/Vol] 34.5 g/dL Normal 29.9-35.2 [facility] Comment on above: Performed By: #### C BC #### [facility] [address] [place] [address] Justina Hussein MCV (RBC) [Entitic vol] 85.5 fL Normal 81.0-99.0 [facility] Comment on above: Performed By: #### C BC #### [facility] [address] [place] [address] Justina Hussein MONO # 0.7 103/ul Normal 0.3-0.8 [facility] Comment on above: Performed By: #### C BC #### [facility] [address] [place], [place] [address] Justina Hussein Monocytes/100 WBC (Bld) 10.3 % Normal 1.7-12.0 [facility] Comment on above: Performed By: #### C BC #### [facility] [address] [place] [address] Justina Chairezen NEUT # 4.2 103/ul Normal 1.4-6.5 [facility] Comment on above: Performed By: #### C BC #### [facility] [address] [place], [place] [address] Justina Hussein Neutrophils/100 WBC (Bld) 63.6 % Normal 43.0-75.0 [facility] Comment on above: Performed By: #### C BC #### [facility] [address] [place], [place] [address] Justina Hussein Platelet mean volume (Bld) [Entitic vol] 9.9 fL Normal 9.5-13.5 [facility] Comment on above: Performed By: #### C BC #### [facility] [address] [place], [place] [address] Justina Jovita PLT 338 103/ul Normal 150-450 [facility] Comment on above: Performed By: #### C BC #### [facility] [address] [place], [place] [address] Justina Jovita RBC 4.41 106/ul Normal 4.20-5.40 [facility] Comment on above: Performed By: #### C BC #### [facility] [address] [place], [place] [address] Justina Hussein WBC 6.6 103/ul Normal 4.0-11.0 [facility] Comment on above: Performed By: #### C #### [facility] [address] [place], [place] [address] ABD/PELVIS WO CONon 02-16 [...] due to lack of IV contrast. Normal mesentery/peritoneum . Status post appendectomy. BLADDER: Normal. REPRODUCTIVE SYSTEM: [...] BRITTANI CABALLERO Date: 2021-02-16 17:59 Normal [facility] CULTURE URINEon 02-16-2021 CULTURE URINE Culture Observations: LIGHT GROWTH OF MIXED GENITAL NASIR. NO POTENTIAL PATHOGENS SEEN. Normal [facility] Comment on above: Performed By: #### C BC #### [facility] [address] [place] [address] Justina Jovita ER URINE PROFILEon 1 Bilirubin Ql (U) Negative Normal NEGATIVE [facility] Comment on above: Performed By: #### LILIANA BRITORO #### [facility] [address] [place] [address] Justina Jovita Clarity (U) CLEAR Normal CLEAR [facility] Comment on above: Performed By: #### LILIANA BRITORO #### [facility] [address] [place] [address] Justina Jovita Color (U) YELLOW Normal YELLOW [facility] Comment on above: Performed By: #### LILIANA BRITORO #### [facility] [address] [place] [address] Justina Jovita ERUAHD A micrscopic examination will be performed if indicated. Normal [facility] Comment on above: Performed By: #### LILIANA BRITORO #### [facility] [address] [place] [address] Justina Jovita Glucose Ql (U) Negative Normal NEGATIVE [facility] Comment on above: Performed By: #### LILIANA BRITORO #### [facility] [address] [place] [address] Justina Jovita Hemoglobin Ql (U) Negative Normal NEGATIVE [facility] Comment on above: Performed By: #### LILIANA BRITORO #### [facility] [address] [place] [address] Justina Jovita Ketones Ql (U) Negative Normal NEGATIVE [facility] Comment on above: Performed By: #### LILIANA BRITORO #### [facility] [address] [place] [address] Justina Jovita LEUKOCYTES SMALL Abnormal NEGATIVE [facility] Comment on above: Performed By: #### LILIANA BRITORO #### [facility] [address] [place], [place] [address] Justina Jovita Nitrite Ql (U) Negative Normal NEGATIVE [facility] Comment on above: Performed By: #### DESIREE BRITO #### [facility] [address] [place], [place] [address] Justina Jovita pH (U) 5.0 [pH] Normal 5-9 [facility] Comment on above: Performed By: #### DESIREE BRITO #### [facility] [address] [place] [address] Justina Jovita SPEC GRAVITY >=1.030 Abnormal 1.005-<=1.025 [facility] Comment on above: Performed By: #### DSEIREE BRITO #### [facility] [address] [place] [address] Justina Jovita UA PROTEIN Negative Normal NEGATIVE/ [facility] Comment on above: Performed By: #### DESIREE BRITO #### [facility] [address] [place] [address] Justina Jovita UR MICRO IND INDICATED Normal [facility] Comment on above: Performed By: #### DESIREE BRITO #### [facility] [address] [place] [address] Justinajoselyn Hussein Urobilinogen Qn (U) 0.2 {Juan'U}/dL Normal 0.2 - 1. 0 [facility] Comment on above: Performed By: #### DESIREE BRITO #### [facility] [address] [place] [address] Justina Jovita LACTATE/LACTIC ACIDon 2020 Lactate [Moles/Vol] 3.5 mmol/L Critically high 0.7-2.0 [facility] Comment on above: Result Comment: test repeated, critical value verified Performed By: #### L ACT #### [facility] [address] [place] [address] Justina Jovita Lactate [Moles/Vol] 3.7 mmol/L Critically high 0.7-2.0 [facility] Comment on above: Result Comment: test repeated, critical value verified Performed By: #### C BC #### [facility] [address] [place], [place] [id number] Justinajoselyn Hussein LIPASEon 02-16-2021 Lipase [Catalytic activity/Vol] 173.0 U/L Normal 23.0-300.0 [facility] Comment on above: Performed By: #### C BC #### [facility] [address] [place], [place] [id number] Justinajoselyn Hussein POINT OF CARE GLUCOSEon 02-04 Glucose [Mass/Vol] 187 mg/dL Critically high 74-106 [facility] Comment on above: Performed By: #### P OCGLUC #### [facility] [address] [place], [place] [id number] Justina Hussein PROF 14(COMP METB)on 021 Albumin [Mass/Vol] 4.4 g/dL Normal 3.5-5.0 [facility] Comment on above: Performed By: #### C BC #### [facility] [address] [place], [place] [phone] Justina Jovita Albumin/Globulin [Mass ratio] 1.1 {ratio} Normal [facility] Comment on above: Performed By: #### C BC #### [facility] [address] [place], [place] [address] Justina Jovita ALP [Catalytic activity/Vol] 51 U/L Normal 38-126 [facility] Comment on above: Performed By: #### C BC #### [facility] [address] [place], [place] [address] Justina Jovita ALT [Catalytic activity/Vol] 32 U/L Normal 9-52 [facility] Comment on above: Performed By: #### C BC #### [facility] [address] [place], [place] [address] Justina Jovita Anion gap [Moles/Vol] 14.8 mmol/L Normal [facility] Comment on above: Performed By: #### C BC #### [facility] [address] [place], [place] [address] Justina Jovita AST [Catalytic activity/Vol] 40 U/L Critically high 14-36 [facility] Comment on above: Performed By: #### C BC #### [facility] [address] [place], [place] [address] Justina Jovita Bilirubin [Mass/Vol] 0.7 mg/dL Normal 0.2-1.3 [facility] Comment on above: Performed By: #### C BC #### [facility] [address] [place], [place] [address] Justina Jovita Calcium [Mass/Vol] 9.6 mg/dL Normal 8.4-10.2 [facility] Comment on above: Performed By: #### C BC #### [facility] [address] [place], [place] [address] Justina Jovita Chloride [Moles/Vol] 99 mmol/L Normal 98-107 [facility] Comment on above: Performed By: #### C BC #### [facility] [address] [place] [phone] Justina Jovita CO2 [Moles/Vol] 29.3 mmol/L Normal 22.0-30.0 [facility] Comment on above: Performed By: #### C BC #### [facility] [address] [place], [place] [address] Justina Jovita Creatinine [Mass/Vol] 1.64 mg/dL Critically high 0.52-1.04 [facility] Comment on above: Performed By: #### C BC #### [facility] [address] [place], [place] [address] Justina Jovita EGFR-AF SLOVENIAN 36 mL/min/1.73m2 Critically low >=60 [facility] Comment on above: Performed By: #### C BC #### [facility] [address] [place], [place] [address] Justina Jovita EGFR-NON AF SLOVENIAN 30 mL/min/1.73m2 Critically low >=60 [facility] Comment on above: Performed By: #### C BC #### [facility] [address] [place], [place] [address] Justina Jovita Globulin (S) [Mass/Vol] 4.0 g/dL Normal [facility] Comment on above: Performed By: #### C BC #### [facility] [address] [place], [place] [address] Justina Jovita Glucose [Mass/Vol] 185 mg/dL Critically high 74-106 [facility] Comment on above: Performed By: #### C BC #### [facility] [address] [place], [place] [address] Justina Jovita Potassium [Moles/Vol] 4.1 mmol/L Normal 3.4-5.0 [facility] Comment on above: Performed By: #### C BC #### [facility] [address] [place] [phone] Justina Jovita Protein [Mass/Vol] 8.4 g/dL Critically high 6.1-8.2 [facility] Comment on above: Performed By: #### C BC #### [facility] [address] [place] [address] Justina Jovita Sodium [Moles/Vol] 139 mmol/L Normal 137-145 [facility] Comment on above: Performed By: #### C BC #### [facility] [address] [place] [address] Justina Jovita Urea nitrogen [Mass/Vol] 29.0 mg/dL Critically high 7.0-17.0 [facility] Comment on above: Performed By: #### C BC #### [facility] [address] [place] [phone] Justnia Jovita Urea nitrogen/Creatinine [Mass ratio] 17.7 mg/mg Normal [facility] Comment on above: Performed By: #### C BC #### [facility] [address] [place], [place] [address] Justina Jovita PROTIMEon 02-16-2021 INR Coag (PPP) [Relative time] 1.05 {INR} Normal [facility] Comment on above: Performed By: #### P TT, PT #### [facility] [address] [place], [place] [address] Justina Jovita INR GUIDELINES SEE BELOW Normal [facility] Comment on above: Result Comment: ROSELIA RED INR: 2.0 - 3.0 CONDITIONS NOT LISTED BELOW 2.5 - 3.5 FOR PROSTHETIC HEART VALVE REPLACEMENT 2.5 - 3.5 RECURRENT THROMBOSIS Performed By: #### P TT, PT #### [facility] [address] [place] [address] Justina Hussein PT Coag (PPP) [Time] 11.4 s Normal 9.0-11.6 [facility] Comment on above: Performed By: #### P TT, PT #### [facility] [address] [place] [address] Justinajoselyn Hussein PTTon 02-16-2021 aPTT Coag (Bld) [Time] 24.1 s Normal 22.3-36.2 [facility] Comment on above: Performed By: #### P TT, PT #### [facility] [address] [place] [address] Justina Hussein TROPONIN, HIGH SENSITIVITYon 02-16-2021 HSTROP 6.2 pg/mL Normal 4.0-35.5 [facility] Comment on above: Result Comment: CUT- OFF POINTS HAVE BEEN ESTABLISHED BASED ON THE FOURTH UNIVERSAL DEFINITIONS OF MYOCARDIAL INFARCTION. THE UPPER REFERENCE LIMIT (URL) OF TROPONIN, DEFINED THE 99TH PERCENTILE OF cTnI DISTRIBUTION IN A REFERENCE POPULATION, HAS BEEN CONFIRMED THE DECISION THRESHOLD FOR MO DIAGNOSIS. Performed By: #### C BC #### [facility] [address] [place] [address] Justina Hussein URINE MICROSCOPIC ONLYon BACTERIA TRACE Abnormal NONE SEEN [facility] Comment on above: Performed By: #### DESIREE BRITO #### [facility] [address] [place] [address] Justina Hussein Bacteria identified Cx Nom (U) INDICATED Normal [facility] Comment on above: Performed By: #### DESIREE BRITO #### [facility] [address] [place] [address] Justina Hussein CAST SEEN Abnormal NONE SEEN [facility] Comment on above: Performed By: #### E DESIREE CROSS #### [facility] [address] [place], [place] [phone] Justina Jovita Crystals LM Nom (Urine sed) NONE SEEN Normal NONE SEEN [facility] Comment on above: Performed By: #### E RUR, UMICRO #### [facility] [address] [place], [place] [address] Justina Jovita Epithelial cells LM Ql (Urine sed) FEW Abnormal NONE SEEN /RARE [facility] Comment on above: Performed By: #### E RUR, UMICRO #### [facility] [address] [place] [address] Justina Jovita MUCOUS NONE SEEN Normal NONE SEEN [facility] Comment on above: Performed By: #### E MYNORR, UMICRO #### [facility] [address] [place] [address] Justina Jovita RBC 2-5 Abnormal 0-2 [facility] Comment on above: Performed By: #### E MYNORR, UMICRO #### [facility] [address] [place] [address] Justina Jovita WBC 20-50 Abnormal NONE SEEN [facility] Comment on above: Performed By: #### E MYNORR, UMICRO #### [facility] [address] [place] [id number] Justina Jovita XR CHEST 2 Von 02-16-2021 XR CHEST 2 V EXAM: XR CHEST 2 V HISTORY: NAUSEA WITH VOMITING, UNSPECIFIED COMPARISON: None. TECHNIQUE: PA and lateral views FINDINGS: Lungs are clear. Cardiac silhouette is normal. No pleural effusion or pneumothorax. Degenerative changes both shoulders. No acute osseous findings. IMPRESSION: No acute process. Electronically authenticated by: TEJAS LAURA Date: 2021-02-16 17:49 Normal [facility] Vital Signs Date Time Vital Sign Value Performing Clinician Faci lity 10-10-2024 13:10-0500 Body height 163.8 cm Chloe Colmenares GEAR SETTER Work Phone: [facility] 10-10-2024 13:10-0500 Body mass index (BMI) [Ratio] 25.92 kg/m2 Chloe Colmenares GEAR SETTER Work Phone: [facility] 10-10-2024 13:10-050 Body temperature 98.8 [degF] Chloe Aichholz GEAR SETTER Work Phone: [facility] 10-10-2024 13:10-0500 Body weight 69.58 kg Chloe Smyonehholz GEAR SETTER Work Phone: [facility] 10-10-2024 13:10-0500 Diastolic blood pressure 82 mm[Hg] Chloe Aichholz GEAR SETTER Work Phone: [facility] 10-10-2024 13:10-0500 Heart rate 93 /min Chloe Aichholz GEAR SETTER Work Phone: [facility] 10-10-2024 13:10-0500 Respiratory rate 18 /min Chloe Aichholz GEAR SETTER Work Phone: [facility] 10-10-2024 13:10-0500 SaO2% (BldA) [Mass fraction] 99 % Chloe Aichholz GEAR SETTER Work Phone: [facility] 10-10-2024 13:10-0500 Systolic blood pressure 138 mm[Hg] Chloe Aichholz GEAR SETTER Work Phone: [facility] 07-04-2024 13:32-0400 Body height 163.8 cm Chloe Aichholz GEAR SETTER Work Phone: [facility] 07-04-2024 13:32-0400 Body mass index (BMI) [Ratio] 25.25 kg/m2 Chloe Aichholz GEAR SETTER Work Phone: [facility] 07-04-2024 13:32-0400 Body temperature 98.29 [degF] Chloe Symonehholz GEAR SETTER Work Phone: [facility] 07-04-2024 13:32-0400 Body weight 67.77 kg Chloe Aichholz GEAR SETTER Work Phone: [facility] 07-04-2024 13:32-0400 Diastolic blood pressure 76 mm[Hg] Chloe Aichholz GEAR SETTER Work Phone: [facility] 07-04-2024 13:32-0400 Heart rate 101 /min Chloe Aichholz GEAR SETTER Work Phone: [facility] 07-04-2024 13:32-0400 Respiratory rate 18 /min Chloemary Burgosholz GEAR SETTER Work Phone: [facility] 07-04-2024 13:32-0400 SaO2% (BldA) [Mass fraction] 96 % Chloe Lorettaholz GEAR SETTER Work Phone: [facility] 07-04-2024 13:32-0400 Systolic blood pressure 128 mm[Hg] Chloe Lorettaholz GEAR SETTER Work Phone: [facility] 04-26-2024 13:03-0400 Body height 163.8 cm Chloe Lorettaholz GEAR SETTER Work Phone: [facility] 04-26-2024 13:03-0400 Body mass index (BMI) [Ratio] 24.47 kg/m2 Chloe Lorettaholz GEAR SETTER Work Phone: [facility] 04-26-2024 13:03-0400 Body temperature 98.29 [degF] Chloemary Yaoz GEAR SETTER Work Phone: [facility] 04-26-2024 13:03-0400 Body weight 65.68 kg Chloemary Yaoz GEAR SETTER Work Phone: [facility] 04-26-2024 13:03-0400 Diastolic blood pressure 66 mm[Hg] Chloe Lorettaholz GEAR SETTER Work Phone: [facility] 04-26-2024 13:03-0400 Heart rate 100 /min Chloe Lorettaholz GEAR SETTER Work Phone: [facility] 04-26-2024 13:03-0400 Respiratory rate 18 /min Chloe Lorettaholz GEAR SETTER Work Phone: [facility] 04-26-2024 13:03-0400 SaO2% (BldA) [Mass fraction] 99 % Chloe Lorettaholz GEAR SETTER Work Phone: [facility] 04-26-2024 13:03-0400 Systolic blood pressure 110 mm[Hg] Chloe Colmenares NP Work Phone: [facility] 04-25-2024 11:07-040 Body height 163.8 cm Tomasa Moctezuma DO Work Phone: [facility] 04-25-2024 11:07-0400 Body mass index (BMI) [Ratio] 24.34 kg/m2 Tomasa Moctezuma DO Work Phone: [facility] 04-25-2024 11:07-040 Body weight 65.32 kg Tomasa Moctezuma DO Work Phone: [facility] Healthcare Encounters Encounter Date Encounter Type Care Provider Facility Start: 10-13-2024 End: 10-13-2024 Telephone encounter Chloe Colmenares GEAR SETTER Work Phone: [facility] Start: 10-12-2024 End: 10-12-2024 ambulatory BRENNEN NAGEL Not Available Start: 10-12-2024 End: 10-12-2024 Bamboo flowsheet Brennen Nagel GEAR SETTER Work Phone: [facility] Start: 10-12-2024 End: 10-12-2024 Bamboo flowsheet Brennen Nagel GEAR SETTER Work Phone: [facility] Start: 10-12-2024 End: 10-12-2024 Office outpatient visit 15 minutes Brennen Nagel GEAR SETTER Work Phone: [facility] Comment on above: S/P total left hip a rthroplasty (Primary Dx); Left hip pain Start: 10-10-2024 End: 10-10-2024 Bamboo flowsheet Chloe Colmenares GEAR SETTER Work Phone: [facility] Start: 10-10-2024 End: 10-10-2024 Bamboo flowsheet Chloe Colmenares GEAR SETTER Work Phone: [facility] Start: 10-10-2024 End: 10-10-2024 Office outpatient visit 25 minutes Chloe Colmenares GEAR SETTER Work Phone: [facility] Comment on above: Essential hypertensi on (CMS/HCC) (Primary Dx); Unspecified dementia, unspecified severity, without behavioral disturbance, psychotic disturbance, mood disturbance, and anxiety (CMS/HCC); Type 2 diabetes mellitus with diabetic chronic kidney disease (CMS/HCC); Chronic kidney disease, stage 3b (HCC) (CMS/HCC); 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, without long-term current use of insulin (CMS/HCC); Degeneration of intervertebral disc of lumbar region with discogenic back pain and lower extremity pain; 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, unspecified type; Memory impairment of gradual onset; Other hyperlipidemia ([facility]) Start: 10-10-2024 End: 10-10-2024 Refill Chloe Colmenares GEAR SETTER Work Phone: [facility] Comment on above: 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 pain and lower extremity pain (Primary Dx) Start: 07-10-2024 End: 07-10-2024 ambulatory Jackson Nathan MD Facility:[facility] Start: 07-04-2024 End: 07-04-2024 Bamboo flowsheet Chloe Colmenares GEAR SETTER Work Phone: [facility] Start: 07-04-2024 End: 07-04-2024 Bamboo flowsheet Chloe Colmenares GEAR SETTER Work Phone: [facility] Start: 07-04-2024 End: 07-04-2024 Office outpatient visit 25 minutes Chloe Colmenares NP Work Phone: [facility] Comment on above: Type 2 diabetes raina itus with diabetic chronic kidney disease ([facility]/HCC) (Primary Dx); Chronic kidney disease, stage 3b (HCC) ([facility]/HCC); Unspecified dementia, unspecified severity, without behavioral disturbance, psychotic disturbance, mood disturbance, and anxiety (CMS/HCC); Degeneration of intervertebral disc of lumbar region, unspecified whether pain present; Needs flu shot Start: 07-04-2024 End: 07-04-2024 ambulatory CHLOE COLMENARES Not Available Start: 06-27-2024 End: 06-27-2024 Bamboo flowsheet Tomasa Moctezuma DO Work Phone: [facility] Start: 06-27-2024 End: 06-27-2024 Bamboo flowsheet Tomasa Moctezuma DO Work Phone: [facility] Start: 06-27-2024 End: 06-27-2024 Clinisync Result Encounter Chloe Colmenares GEAR SETTER Work Phone: [facility] External Department Unsolicited Start: 06-27-2024 End: 06-27-2024 ambulatory TOMASA MOCTEZUMA Not Available Start: 06-27-2024 End: 06-27-2024 Postop follow up visit related to original px Tomasa Moctezuma DO Work Phone: [facility] Comment on above: Primary osteoarthrit is of left hip (Primary Dx); S/P total left hip arthroplasty Start: 06-09-2024 End: 06-09-2024 Refill Chloe Colmenares GEAR SETTER Work Phone: [facility] Comment on above: Cardiac arrhythmia d ue to premature depolarization, unspecified type Start: 06-08-2024 End: 06-08-2024 Telephone encounter Chloe Colmenares GEAR SETTER Work Phone: [facility] Comment on above: Med Refill Start: 05-30-2024 End: 05-30-2024 Bamboo flowsheet Tomasa Moctezuma DO Work Phone: [facility] Start: 05-30-2024 End: 05-30-2024 Bamboo flowsheet Tomasa Moctezuma DO Work Phone: [facility] Start: 05-30-2024 End: 05-30-2024 Refill Chloe Colmenares GEAR SETTER Work Phone: [facility] Comment on above: Cardiac arrhythmia d ue to premature depolarization, unspecified type; Memory impairment of gradual onset; Other hyperlipidemia (CMS/HCC); Essential hypertension (CMS/HCC) Start: 05-30-2024 End: 05-30-2024 Postop follow up visit related to original px Tomasa Moctezuma DO Work Phone: [facility] Comment on above: S/P total left hip a rthroplasty (Primary Dx) Start: 05-30-2024 End: 05-30-2024 ambulatory TOMASA MOCTEZUMA Not Available Start: 05-25-2024 End: 05-25-2024 Postop follow up visit related to original px Tomasa Moctezuma DO Work Phone: [facility] Comment on above: S/P total left hip a rthroplasty (Primary Dx) Start: 05-25-2024 End: 05-25-2024 ambulatory TOMASA MOCTEZUMA Not Available Start: 05-25-2024 ambulatory MARY CASTILLO Not A acostailadamien Start: 05-24-2024 End: 05-24-2024 Clinical Support Mary Castillo PT Work Phone: [facility] Comment on above: Status post left hip replacement (Primary Dx); Acute postoperative pain of left hip; Difficulty walking; Primary osteoarthritis of left hip Start: 05-23-2024 End: 05-23-2024 ambulatory MARY CASTILLO Not Available Start: 05-22-2024 End: 05-22-2024 Clinical Support Mary Castillo PT Work Phone: [facility] Comment on above: Status post left hip replacement (Primary Dx); Acute postoperative pain of left hip; Difficulty walking; Primary osteoarthritis of left hip Start: 05-20-2024 End: 05-20-2024 Clinical Support Mary Castillo PT Work Phone: [facility] Comment on above: Status post left hip replacement (Primary Dx); Acute postoperative pain of left hip; Difficulty walking; Primary osteoarthritis of left hip Start: 05-19-2024 End: 05-19-2024 Telephone encounter Brennen Nagel GEAR SETTER Work Phone: [facility] Start: 05-17-2024 End: 05-19-2024 ambulatory TOMASA MOCTEZUMA [facility] Start: 05-16-2024 End: 05-16-2024 Telephone encounter Tomasa Moctezuma DO Work Phone: [facility] Start: 05-16-2024 Encounter for other preprocedural examination TOMASA MOCTEZUMA [facility] Start: 05-15-2024 End: 05-15-2024 ambulatory TOMASA Marcano JOSE ELIAS [facility] Comment on above: Primary osteoarthrit is of left hip (Primary Dx) Start: 05-01-2024 End: 05-01-2024 Refill Chloe Dedra GEAR SETTER Work Phone: [facility] Comment on above: Chronic low back ankit n, unspecified back pain laterality, unspecified whether sciatica present (Primary Dx) Start: 04-28-2024 End: 04-28-2024 Refill Chloe Dedra GEAR SETTER Work Phone: [facility] Comment on above: Essential hypertensi on (CMS/HCC) Start: 04-26-2024 End: 04-26-2024 Bamboo flowsheet Chloe Dedra GEAR SETTER Work Phone: [facility] Start: 04-26-2024 End: 04-26-2024 Bamboo flowsheet Chloe Dedra GEAR SETTER Work Phone: [facility] Start: 04-26-2024 End: 04-26-2024 ambulatory CHLOE DEDRA Not Available Start: 04-26-2024 End: 04-26-2024 Office outpatient visit 25 minutes Chloe Dedra GEAR SETTER Work Phone: [facility] Comment on above: Preoperative clearan ce (Primary Dx); 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); Chronic kidney disease, stage 3b (HCC) (CMS/HCC); Unspecified dementia, unspecified severity, without behavioral disturbance, psychotic disturbance, mood disturbance, and anxiety (CMS/HCC); Essential hypertension (CMS/HCC) Start: 04-26-2024 End: 04-26-2024 Preoperative state Chloe Dedra GEAR SETTER Work Phone: [facility] Start: 04-25-2024 End: 04-25-2024 Bamboo flowsheet Brennen Nagel GEAR SETTER Work Phone: [facility] Start: 04-25-2024 End: 04-25-2024 Bamboo flowsheet Brennen Nagel GEAR SETTER Work Phone: [facility] Start: 04-25-2024 End: 04-25-2024 Office outpatient visit 40 minutes Tomasa Moctezuma DO Work Phone: [facility] Comment on above: Primary osteoarthrit is of left hip (Primary Dx); Left hip pain Start: 04-25-2024 End: 04-25-2024 ambulatory BRENNEN NAGEL Not Available Start: 04-21-2024 End: 04-21-2024 ambulatory TOMASA Marcano [facility] Start: 04-13-2024 End: 04-13-2024 ambulatory ENEDINA PHELPS Not Available Start: 03-23-2024 End: 03-23-2024 ambulatory TOMASA MOCTEZUMA Not Available Start: 02-29-2024 End: 02-29-2024 ambulatory CHLOE AICHHOLZ Not Available Start: 01-20-2024 End: 01-20-2024 ambulatory WILLARD Marcano PETITTI Not Available Start: 11-29-2023 End: 11-29-2023 ambulatory CHLOE AICHHOLZ Not Available Start: 10-26-2023 Patient encounter procedure Brennen Nagel GEAR SETTER Work Phone: [facility] Start: 10-26-2023 End: 10-26-2023 ambulatory CHLOE AICHHOLZ Not Available Start: 07-15-2021 End: 07-16-2021 ambulatory DEANGELO JONES Facility:[facility] Start: 03-11-2021 End: 03-12-[address] JEROMY INMAN Facility:[facility] Start: 02-19-2021 End: 02-19-2021 ambulatory JUAN DENISE Facility:[facility] Start: 02-16-2021 End: 02-16-2021 ambulatory MELI FREGOSO Facility:[facility] Start: 12-10-2020 End: 12-11-2020 ambulatory NONE LISTED REQUEST Facility: Start: 11-18-2020 End: 11-19-[address] NONE LISTED REQUEST Facility: Procedures Date Procedure Procedure Detail Performing Clinician Start: 10-12-2024 Radex hip unilateral with pelvis 2-3 views Brennen Nagel NP Work Phone: Start: 10-10-2024 Hemoglobin glycosyla john a1c Chloe Colmenares GEAR SETTER Work Phone: Start: 06-27-2024 ALL BASIC METABOLIC PANEL Chloe Colmenares GEAR SETTER Work Phone: Start: 06-27-2024 Radex hip unilateral with pelvis 2-3 views Tomasa aMrcano Jose Elias DO Work Phone: Plan of Treatment Date Care Activity Detail Author Start: 05-10-2025 End: 05-10-2025 Patient encounter procedure 05/10/2025 1:30 PM EDT Office Visit [facility] [address] [place] [address] Brennen Nagel NP [address] [facility] [place], [place] [phone] [facility] Start: 03-01-2025 Urine screening for protein Diabetes: Urine Protein Screening [facility] Start: 01-22-2025 End: 01-22-2025 Patient encounter procedure 01/22/2025 11:30 AM EDT Office Visit [facility] [address] [place] [address] Willard Menendez MD [address] [place] [address] [facility] Start: 01-07-2025 Hemoglobin A1c measurement Diabetes: Hemoglobin A1C [facility] Start: 11-21-2024 End: 11-21-2024 Patient encounter procedure 11/21/2024 1:00 PM EDT Office Visit [facility] [address] [place] [phone] Chloe Colmenares NP [address] [place] [address] [facility] Start: 10-12-2024 End: 10-12-2024 Patient encounter procedure 10/12/2024 2:00 PM EST Office Visit [facility] [address] [facility] [phone] Brennen Nagel, GEAR SETTER [address] [place], [place] [id number] [facility] Start: 10-10-2024 End: 10-10-2025 Basic metabolic 1998 panel - Serum or Plasma Basic metabolic panel Lab Routine Chronic kidney disease, stage 3b (HCC) ([facility]/HCC) Expected: 10/10/2024 (Approximate), Expires: 10/10/2025 [facility] Comment on above: Expected: 10/10/2024 (Approximate), Expi res: 10/10/2025 Start: 10-10-2024 End: 10-10-2025 CBC W Auto Differential panel - Blood CBC and differential Lab Routine Chronic kidney disease, stage 3b (HCC) ([facility]/HCC) Expected: 10/10/2024 (Approximate), Expires: 10/10/2025 [facility] Work Phone: Comment on above: Expected: 10/10/2024 (Approximate), Expi res: 10/10/2025 Start: 10-10-2024 End: 10-10-2024 Patient encounter procedure 10/10/2024 1:00 PM EST Office Visit [facility] [address] [place] [address] Chloe Colmenares NP [address] [place] [phone] [facility] Start: 08-14-2024 Hemoglobin A1c measurement Diabetes: Hemoglobin A1C [facility] Start: 08-08-2024 End: 08-08-2024 Patient encounter procedure 08/08/2024 11:00 AM EST Office Visit [facility] [address] [place] [address] Brennen Nagel, GEAR SETTER [address] [place] [address] [facility] Start: 07-04-2024 End: 07-04-2024 Patient encounter procedure 07/04/2024 1:20 PM EDT Office Visit [facility] [address] [place] [address] Chloe Colmenares NP [address] [place] [phone] Degeneration of intervertebral disc of lumbar region, unspecified whether pain present (Primary Dx); Type 2 diabetes mellitus with diabetic chronic kidney disease (CMS/HCC); Chronic kidney disease, stage 3b (HCC) (CMS/HCC); Unspecified dementia, unspecified severity, without behavioral disturbance, psychotic disturbance, mood disturbance, and anxiety (CMS/HCC) [facility] Comment on above: Degeneration of intervertebral disc of l umbar region, unspecified whether pain present (Primary Dx); Type 2 diabetes mellitus with diabetic chronic kidney disease (CMS/HCC); Chronic kidney disease, stage 3b (HCC) (CMS/HCC); Unspecified dementia, unspecified severity, without behavioral disturbance, psychotic disturbance, mood disturbance, and anxiety (CMS/HCC) Start: 06-27-2024 End: 06-27-2024 Patient encounter procedure 06/27/2024 10:30 AM EDT Office Visit [facility] [address] [facility] [address] [place] [address] Tomasa Moctezuma DO [address] [facility] [address] [place] [address] [facility] Start: 06-21-2024 End: 06-21-2024 Patient encounter procedure 06/21/2024 1:40 PM EDT Office Visit [facility] [address] [place] [phone] Chloe Colmenares, GEAR SETTER [address] [place] [address] [facility] Start: 05-30-2024 End: 05-30-2024 Patient encounter procedure [facility] Comment on above: Arrived Start: 05-25-2024 End: 05-25-2024 Patient encounter procedure 05/25/2024 10:15 AM EDT Office Visit [facility] [address] [place] [phone] Tomasa Moctezuma, DO [address] [place] [address] [facility] Start: 05-22-2024 End: 05-22-2024 Patient encounter procedure 05/22/2024 1:20 PM EDT Office Visit [facility] [address] [place] [address] Chloe Colmenares, RADHA [address] [place] [address] [facility] Start: 05-17-2024 End: 05-17-2024 Patient encounter procedure 05/17/2024 8:30 AM EDT Procedure Visit [facility] Tomasa Moctezuma, DO [address] [place] [address] [facility] Start: 05-16-2024 End: 05-16-2024 Patient encounter procedure 05/16/2024 11:15 AM EDT Office Visit [facility] [address] [place] [phone] Tomasa Moctezuma, DO [address] [place] [address] [facility] Start: 05-07-2024 Influenza vaccination Influenza Vaccine (#1) [facility] Start: 04-26-2024 End: 04-26-2026 Echocardiogram 2D complete Echocardiogram 2D complete Echocardiography STAT Type 2 diabetes mellitus with diabetic chronic kidney disease (HCC) ([facility]/HCC) Chronic kidney disease, stage 3b (HCC) ([facility]) Preoperative clearance Expected: 04/26/2024 (Approximate), Expires: 04/26/2026 [facility] Work Phone: Comment on above: Expected: 04/26/2024 (Approximate), Expi res: 04/26/2026 Start: 04-26-2024 End: 04-26-2024 Patient encounter procedure 04/26/2024 1:00 PM EDT Office Visit [facility] [address] [place] [address] Chloe Colmenares NP [address] [place] [address] [facility] Start: 04-25-2024 End: 04-25-2024 Patient encounter procedure 04/25/2024 11:00 AM EDT Office Visit [facility] [address] [facility] [address] [place] [phone] Brennen Nagel, GEAR SETTER [address] [facility] [place], [place] [phone] Primary osteoarthritis of left hip (Primary Dx); [facility] Comment on above: Primary osteoarthritis of left hip (Prim richard Dx); Left hip pain Start: 10-22-2023 Hemoglobin A1c measurement Diabetes: Hemoglobin A1C [facility] Start: 1950 Glaucoma screening Diabetes: Retinopathy Screening [facility] Immunizations Immunization Date Immunization Notes Care Provider [facility] 07-04-2024 Seasonal trivalent influenza vaccine, adjuvanted, preservative free Chloe Colmenares NP Work Phone: [facility] 01-06-2024 Pneumococcal Conjuga te PCV 20 Brennen Nagel NP Work Phone: [facility] 10-13-2023 Influenza, Seasonal, Quadrivalent, Adjuvanted Brennen Nagel GEAR SETTER Work Phone: [facility] 06-18-2023 influenza virus vacc ine, unspecified formulation Brennen Nagel GEAR SETTER Work Phone: [facility] 07-02-2022 Influenza, Seasonal, Quadrivalent, Adjuvanted Brennen Nagel GEAR SETTER Work Phone: [facility] 06-13-2019 influenza, injectabl e, quadrivalent, preservative free Brennen Nagel GEAR SETTER Work Phone: [facility] 02-07-2018 pneumococcal polysaccharide vaccine, 23 valent Brennen Nagel GEAR SETTER Work Phone: [facility] Payers Date Payer Category Payer Medicare [employer] MEDICARE ADVANTAGE HU[employer] MEDICARE [id number] 2023-Present [address] [place] [phone] [id number] 2023 Medicare (Managed Care) [facility] [id number] 2023 Private Health Insurance 2022 Medicare [id number] 1959 Medicare [id number] 1959 Self-pay [id number] 1959 Unknown [id number] 1938 Unknown [id number] 2.16.840.1.661783.3.579.2 .593 1938 Unknown [id number] 2.16.840.1.311641.3.579.2 .593 1938 Unknown [id number] 2.16.840.1.288245.3.579.2 .593 1938 Unknown [id number] 2.16.840.1.240560.3.579.2 .128 1938 Unknown [id number] 2.16.840.1.652149.3.579.2 .128 1938 Unknown [id number] 2.16.840.1.470093.3.579.2 .128 1938 Unknown [id number] 2.16.840.1.326574.3.579.2 .128 1938 Unknown [id number] 2.16.840.1.732764.3.579.2 .128 1938 Unknown [id number] 2.16.840.1.575978.3.579.2 .196 1938 Unknown [id number] 2.16.840.1.671299.3.579.2 .1258 1938 Unknown [id number] 2.16.840.1.535184.3.579.2 .1258 1938 Unknown [id number] 2.16.840.1.967697.3.579.2 .1258 1938 Unknown [id number] 2.16.840.1.470303.3.579.2 .125 1938 Unknown [id number] 2.16.840.1.641615.3.579.2 .125 1938 Unknown [id number] 2.16.840.1.573205.3.579.2 .1258 1938 Unknown [id number] 2.16.840.1.167879.3.579.2 .125 1938 Unknown [id number] 2.16.840.1.490906.3.579.2 .125 1938 Unknown [id number] 2.16.840.1.258742.3.579.2 .1258 1938 Unknown [id number] 2.16.840.1.313074.3.579.2 .1258 1938 Unknown [id number] 2.16.840.1.236252.3.579.2 .1258 1938 Unknown [id number] 2.16.840.1.284607.3.579.2 .1258 1938 Unknown [id number] 2.16.840.1.989029.3.579.2 .1258 1938 Unknown [id number] 2.16.840.1.770812.3.579.2 .1258 1938 Unknown [id number] 2.16.840.1.135472.3.579.2 .1258 1938 Unknown [id number] 2.16840.1.581022.3.579.2 .1258 1938 Unknown [id number] 2.16.840.1.373000.3.579.2 .1258 1938 Unknown [id number] 2.16.840.1.680457.3.579.2 .1258 1938 Unknown [id number] 2.16.840.1.738741.3.579.2 .1258 1938 Unknown [id number] 2.16840.1.343801.3.579.2 .1259 Unknown [id number] 2.16.840.1.251529.3.579.2 .593 Unknown [id number] 2.16840.1.458696.3.579.2 .593 Unknown [id number] 2.16840.1.386907.3.579.2 .593 Social History Date Type Detail Facility Start: 04-23-2023 Tobacco smoking status FLIS Never sm oked tobacco [facility] Start: 04-23-2023 Tobacco use and exposure Smoke less tobacco non-user [facility] Start: 05-23-2024 End: 10-12-2024 Alcoholic beverage intake Lifetime non-drinker (finding) [facility] Start: 10-26-2023 End: 10-12-2024 History of Social function [facility] Start: 10-26-2023 End: 10-12-2024 Humiliation, Afraid, Rape, and Kick questionnaire [HARK] [...] got money to buy more. Never true [facility] Start: 1940 Sex assigned at Not on file [facility] Clinical Notes 04-25-2024 to 10-13-2024 Telephone Encounter - Chloe Colmenares NP - 10/13/2024 8:09 AM ESTTelephone Encounter - Chloe Colmenares NP - 10/13/2024 8:09 AM Scottie Nagel NP - 10/12/2024 2:00 PM ESTPatient Instructions Note Date & Type Note Facility 10-13-2024 Telephone encounter Note Contact pt, I have reviewed her notes from ortho. Is she ok with me reaching out to Pain Mgmt to see about where theyare are at with getting MRI and send her back there?? [place] [facility] 10-13-2024 Miscellaneous Notes Contact pt, I have reviewed her notes from ortho. Is she ok with me reaching out to Pain Mgmt to see about where theyare are at with getting MRI and send her back there?? [place] documented in this encounter [facility] 10-12-2024 History of Presen t illness Narrative Images from the original note were not included. HISTORY OF PRESENT ILLNESS: EST PT Sandra Rodrigues is an 83 y.o. @ female. EST PT RECHECK LT FISH 05/17/24 (~5MO) - DOING WELL XRAY LT HIP TODAY EPIC 10/12/24 XRAY 06/27/24 EPIC NOTES OCCASIONAL DISCOMFORT GROIN/LATERAL HIP -PAIN WHEN LAYING DOWN ON BACK AND EXTENDING LEG- USES CANE TO AMBULATE-GOOD ROM- DENIES WEAKNESS- +TRAMADOL; TAKES FOR HER BACK ALLERGIES: Allergies Allergen Reactions Iodine BURNING IN HER SKIN. DOES NOT RECALL HAVING A RASH Pollen Extract HOME MEDICATIONS: Current Outpatient Medications Medication Instructions acetaminophen (TYLENOL) 500 mg, Every 6 hours PRN dilTIAZem CD (CARDIZEM CD) 120 mg, Oral, Daily donepezil (ARICEPT) 5 mg, Oral, Nightly melatonin 10 mg, Oral, Nightly PRN simvastatin (ZOCOR) 10 mg, Oral, Nightly traMADol (ULTRAM) 50 mg, Oral, Every 8 hours PRN valsartan-hydroCHLOROthiazide (Diovan-HCT) 80-12.5 MG tablet 1 tablet, Oral, Daily PHYSICAL EXAM: Left Hip Exam Tenderness The patient is experiencing tenderness in the anterior (mild anterior). Range of Motion External rotation: 50 Internal rotation: 10 Muscle Strength Abduction: 5/5 Adduction: 5/5 Flexion: 5/5 Other Erythema: absent Sensation: normal Pulse: present Vitals: There is no height or weight on file to calculate BMI. Tobacco Use: Low Risk (10/12/2024) Patient History Smoking Tobacco Use: Never Smokeless Tobacco Use: Never Passive Exposure: Not on file Alcohol Use: Not At Risk (10/26/2023) AUDIT-C Frequency of Alcohol Consumption: Never Average Number of Drinks: Patient does not drink Frequency of Binge Drinking: Never IMAGING: XR hip left 2 or 3 views Imaging Result: 10/12/2024: AP and lateral of left hip showed acceptable position and alignment of left total hip arthroplasty. There was no evidence of loosening of the acetabular cup or femoral stem. There is a retained broken drill head from surgery but no signs of loosening. Femoral head was well centered in the acetabular liner without evidence of asymmetric or accelerated wear. There was no gross evidence of fracture and/or dislocation. Impression: Unremarkable left total hip arthroplasty. 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 S/P total left hip arthroplasty Z96.642 2. Left hip pain M25.552 XR hip left 2 or 3 views PLAN: I reviewed xray with patient which showed stable LT FISH. She states that her hip does have occasional anterior and lateral pain but not severe. She is ambulating with cane due to her back. I recommend that patient continue doing activity as tolerated and to call with any worsening symptoms. She will follow up in 7 months for RCK and xray. I discussed with the patient the general recommendation for the use of prophylactic antibiotics prior to dental work after joint replacement. I advised the patient that the use of prophylactic antibiotics for dental work is a controversial topic. I currently have recommended that prophylactic antibiotics be used for 2 years postop and I did advise the patient that the guidelines and recommendations may change on this in the future. Amoxicillin sent in for patient. Questions answered in laymen terms at the bedside. The diagnosis, home exercise plan and any ongoing restrictions/ recommendations reviewed. If unable to be reached in office, I recommend evaluation at nearest Emergency Room if any symptoms worsened or new symptoms develop for requiring urgent evaluation. documented in this encounter [facility] 10-10-2024 History of Presen t illness Narrative Associated Problem(s): DDD (degenerative disc disease), lumbar Cont tramadol, OARRS reviewed At last appt she was referred to pain mgmt at [facility], she was seen it was recommended that she have an updated MRI, she went one time for appt and has not heard from them since It is of note she is seeing ortho this week for eval of her left hip pain (hx recent replacement) pending their opinion we will decide if going back to pain mgmt is approved DD: hip pain , vs lumbar radiculopathy Pt would like dr to look at some growth areas on her chest that she has noticed for a few months now. She does put argon oil products on it along with a cream. She does not have pain or itchiness in the area. Images from the original note were not included. Sandra Rodrigues is a 83 y.o. female presents with chief complaint of Diabetes HPI: Diabetes She presents for her follow-up diabetic visit. She has type 2 diabetes mellitus. Her disease course has been stable. There are no hypoglycemic associated symptoms. Pertinent negatives for hypoglycemia include no dizziness, headaches, nervousness/anxiousness, seizures or tremors. Pertinent negatives for diabetes include no chest pain, no polydipsia, no polyphagia, no polyuria, no visual change and no weakness. There are no hypoglycemic complications. Symptoms are stable. There are no diabetic complications. Risk factors for coronary artery disease include diabetes mellitus, sedentary lifestyle and post-menopausal. Current diabetic treatment includes diet. An LRAY inhibitor/angiotensin II receptor abel is being taken. She does not see a social media coordinator.Eye exam is not current. Hypertension This is a chronic problem. The current episode started more than 1 year ago. The problem is unchanged. The problem is controlled. Pertinent negatives include no anxiety, chest pain, headaches, neck pain, palpitations, peripheral edema or shortness of breath. There are no associated agents to hypertension. Risk factors for coronary artery disease include diabetes mellitus, sedentary lifestyle and post-menopausal state. Past treatments include diuretics, calcium channel blockers and angiotensin blockers. The current treatment provides significant improvement. There are no compliance problems. Hypertensive end-organ damage includes kidney disease. Back Pain This is a chronic problem. The current episode started more than 1 year ago. The problem occurs constantly. The problem has been waxing and waning since onset. The pain is present in the lumbar spine. The quality of the pain is described as aching. The pain does not radiate. The pain is at a severity of 10/10. The pain is severe. The symptoms are aggravated by standing and bending. Pertinent negatives include no abdominal pain, bladder incontinence, bowel incontinence, chest pain, dysuria, fever, headaches, paresthesias or weakness. SUBJECTIVE: MEDICATIONS: Current Outpatient Medications Medication Instructions acetaminophen (TYLENOL) 500 mg, Every 6 hours PRN dilTIAZem CD (CARDIZEM CD) 120 mg, Oral, Daily donepezil (ARICEPT) 5 mg, Oral, Nightly simvastatin (ZOCOR) 10 mg, Oral, Nightly traMADol (ULTRAM) 50 mg, Every 8 hours PRN valsartan-hydroCHLOROthiazide (Diovan-HCT) 80-12.5 MG tablet 1 tablet, Oral, Daily ALLERGIES: Allergies Allergen Reactions Iodine BURNING IN HER SKIN. DOES NOT RECALL HAVING A RASH Pollen Extract REVIEW OF SYMPTOMS: Review of Systems Constitutional: Negative for appetite change, chills and fever. HENT: Negative for congestion, ear pain and sore throat. Eyes: Negative for pain, discharge, redness and visual disturbance. Respiratory: Negative for cough, shortness of breath and wheezing. Cardiovascular: Negative for chest pain, palpitations and leg swelling. Gastrointestinal: Negative for abdominal pain, blood in stool, bowel incontinence, constipation, diarrhea, nausea and vomiting. Genitourinary: Negative for bladder incontinence, difficulty urinating, dysuria and frequency. Musculoskeletal: Positive for arthralgias and back pain. Negative for joint swelling, myalgias and neck pain. Skin: Negative for rash and wound. Neurological: Negative for dizziness, tremors, seizures, syncope, weakness, headaches and paresthesias. Psychiatric/Behavioral: Negative for behavioral problems, self-injury and suicidal ideas. The patient is not nervous/anxious. Hematological: Does not bruise/bleed easily. Endocrine: Negative for polydipsia, polyphagia and polyuria. Allergic/Immunologic: Negative for environmental allergies and food allergies. PAST MEDICAL HISTORY Past Medical History: Diagnosis Date Actinic keratosis Acute glaucoma ([facility]) 10/26/2023 Allergic rhinitis 10/26/2023 Arthritis 10/26/2023 Cancer ([facility]) 10/26/2023 Chronic low back pain, unspecified back pain laterality, unspecified whether sciatica present 10/26/2023 DDD (degenerative disc disease), lumbar 10/26/2023 Hemorrhoids 10/26/2023 Night cramps Squamous cell skin cancer Past Surgical History: Procedure Laterality Date CHOLECYSTECTOMY DILATION AND CURETTAGE HEMORRHOIDECTOMY LAMINECTOMY 2006 NEUROMA SURGERY Right removal of neuroma foot OTHER SURGICAL HISTORY squamous cell carcinoma removed form face DE TOTAL HIP ARTHROPLASTY Right 04/25/2020 TONSILLECTOMY TOTAL HIP ARTHROPLASTY Left 05/17/2024 Dr Moctezuma family history includes Cancer in her father and mother; Diabetes in her father and mother; Hypertension in her father and mother; Stroke in her father. OBJECTIVE: Visit Vitals BP 138/82 (BP Location: Left arm, Patient Position: Sitting, BP Cuff Size: Adult) Pulse 93 Temp 98.8 F (Temporal) Resp 18 Ht 5' 4.5 Wt 153 lb 6.4 oz SpO2 99% BMI 25.92 kg/m Smoking Status Never BSA 1.78 m Physical Exam Vitals and nursing note reviewed. Constitutional: General: She is not in acute distress. Appearance: Normal appearance. HENT: Head: Normocephalic and atraumatic. Right Ear: External ear normal. Left Ear: External ear normal. Nose: Nose normal. Mouth/Throat: Mouth: Mucous membranes are moist. Eyes: Extraocular Movements: Extraocular movements intact. Conjunctiva/sclera: Conjunctivae normal. Neck: Vascular: No carotid bruit. Cardiovascular: Rate and Rhythm: Normal rate and regular rhythm. Pulses: Normal pulses. Heart sounds: Normal heart sounds. No gallop. Pulmonary: Effort: Pulmonary effort is normal. Breath sounds: Normal breath sounds. No wheezing or rales. Abdominal: General: Bowel sounds are normal. There is no distension. Palpations: Abdomen is soft. There is no mass. Tenderness: There is no abdominal tenderness. Musculoskeletal: Cervical back: Normal range of motion and neck supple. Right lower leg: No edema. Left lower leg: No edema. Comments: Left hip pain with internal rotation MMT 5/5 bilat LE DTR's 2+ bilat patellar/achilles Walks with cane and forward flexed posture Lymphadenopathy: Cervical: No cervical adenopathy. Skin: General: Skin is warm and dry. Capillary Refill: Capillary refill takes 2 to 3 seconds. Findings: No rash. Neurological: General: No focal deficit present. Mental Status: She is alert and oriented to person, place, and time. Psychiatric: Mood and Affect: Mood normal. Behavior: Behavior normal. Thought Content: Thought content normal. Judgment: Judgment normal. ASSESSMENT AND PLAN: No follow-ups on file. 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 Take medications (pills or insulin) as directed. Monitor for s/s of hypoglycemia (sweaty, dizziness, nausea, vomiting, or shakiness). Watch for increase in thirst, urination, or appetite. Inspect feet frequently monitoring for open wounds , and also recommend yearly eye exam. Pt should attempt to remain as physically active as chronic conditions allow, as well as trying to follow a diet low in carbohydrates, and simple sugars. Current: valsartan/hydrochlorothiazide, statin, A1c 5.3% 10/10/23 Relevant Orders POCT glycosylated hemoglobin (Hb A1C) docked device (Completed) Other hyperlipidemia ([facility]) Relevant Medications simvastatin (Zocor) 10 MG tablet DDD (degenerative disc disease), lumbar Cont tramadol, OARRS reviewed Chronic kidney disease, stage 3b (HCC) ([facility]) Continue with monitoring labs prn Relevant Orders CBC and differential Basic metabolic panel Memory impairment of gradual onset Relevant Medications donepezil (Aricept) 5 MG tablet Type 2 diabetes mellitus with diabetic chronic kidney disease (CMS/HCC) Unspecified dementia, unspecified severity, without behavioral disturbance, psychotic disturbance, mood disturbance, and anxiety ([facility]) Currently taking aricept, lives on her own, continues to drive, cooking and paying bills Associated Problem(s): 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 ([facility]) Check blood sugars daily, notify if <70 or >200. Take medications (pills or insulin) as directed. Monitor for s/s of hypoglycemia (sweaty, dizziness, nausea, vomiting, or shakiness). Watch for increase in thirst, urination, or appetite. Inspect feet frequently monitoring for open wounds , and also recommend yearly eye exam. Pt should attempt to remain as physically active as chronic conditions allow, as well as trying to follow a diet low in carbohydrates, and simple sugars. Current: valsartan/hydrochlorothiazide, statin, A1c 5.3% 10/10/23 Associated Problem(s): Chronic kidney disease, stage 3b (HCC) ([facility]) Continue with monitoring labs prn Associated Problem(s): Essential hypertension ([facility]/HCC) Please check blood pressure daily and record DASH diet Limit caffeine Take medication as directed Contact office if chest pain, pressure, dizziness, shortness of breath, swelling legs Recommend slow position changes Current med: cardizem, valsartan/HCTZ Associated Problem(s): Unspecified dementia, unspecified severity, without behavioral disturbance, psychotic disturbance, mood disturbance, and anxiety ([facility]) Currently taking aricept, lives on her own, continues to drive, cooking and paying bills documented in this encounter [facility] 10-10-2024 Instructions Chloe Colmenares NP - 10/10/2024 1:00 PM EST Get labs check Follow up in 3 months documented in this encounter [facility] 07-04-2024 History of Presen t illness Narrative Associated Problem(s): DDD (degenerative disc disease), lumbar Cont tramadol, OARRS reviewed Referr to Pain mgmt Images from the original note were not included. Sandra Rodrigues is a 83 y.o. female presents with chief complaint of No chief complaint on file. HPI: Here for recheck of chronic back pain: takes tramadol, had recent hip replacement left. Daily pain levels: 7-8/10, achy, no NT or weakness in legs, no loss of bowel/bladder function. Would like to go see pain mgmt Hypertension This is a chronic problem. The current episode started more than 1 year ago. The problem is unchanged. The problem is controlled. Pertinent negatives include no chest pain, headaches, malaise/fatigue, palpitations, peripheral edema or shortness of breath. There are no associated agents to hypertension. Risk factors for coronary artery disease include diabetes mellitus and sedentary lifestyle. Past treatments include angiotensin blockers, calcium channel blockers and diuretics. The current treatment provides significant improvement. There are no compliance problems. SUBJECTIVE: MEDICATIONS: Current Outpatient Medications Medication Instructions acetaminophen (TYLENOL) 500 mg, Every 6 hours PRN dilTIAZem CD (CARDIZEM CD) 120 mg, Oral, Daily donepezil (ARICEPT) 5 mg, Oral, Nightly simvastatin (ZOCOR) 10 mg, Oral, Nightly traMADol (ULTRAM) 50 mg, Oral, Every 8 hours PRN valsartan-hydroCHLOROthiazide (Diovan-HCT) 80-12.5 MG tablet 1 tablet, Oral, Daily ALLERGIES: Allergies Allergen Reactions Iodine BURNING IN HER SKIN. DOES NOT RECALL HAVING A RASH Pollen Extract REVIEW OF SYMPTOMS: Review of Systems Constitutional: Negative for appetite change, chills, fever and malaise/fatigue. HENT: Negative for congestion, ear pain and sore throat. Eyes: Negative for pain, discharge, redness and visual disturbance. Respiratory: Negative for cough, shortness of breath and wheezing. Cardiovascular: Negative for chest pain, palpitations and leg swelling. Gastrointestinal: Negative for abdominal pain, blood in stool, constipation, diarrhea, nausea and vomiting. Genitourinary: Negative for difficulty urinating, dysuria and frequency. Musculoskeletal: Positive for back pain. Negative for arthralgias, joint swelling and myalgias. Skin: Negative for rash and wound. Neurological: Negative for dizziness, tremors, seizures, syncope and headaches. Psychiatric/Behavioral: Negative for behavioral problems, self-injury and suicidal ideas. The patient is not nervous/anxious. Hematological: Does not bruise/bleed easily. Endocrine: Negative for polydipsia, polyphagia and polyuria. Allergic/Immunologic: Negative for environmental allergies and food allergies. PAST MEDICAL HISTORY Past Medical History: Diagnosis Date Actinic keratosis Acute glaucoma ([facility]) 10/26/2023 Allergic rhinitis 10/26/2023 Arthritis 10/26/2023 Cancer ([facility]) 10/26/2023 Chronic low back pain, unspecified back pain laterality, unspecified whether sciatica present 10/26/2023 DDD (degenerative disc disease), lumbar 10/26/2023 Hemorrhoids 10/26/2023 Night cramps Squamous cell skin cancer Past Surgical History: Procedure Laterality Date CHOLECYSTECTOMY DILATION AND CURETTAGE HEMORRHOIDECTOMY LAMINECTOMY 2006 NEUROMA SURGERY Right removal of neuroma foot OTHER SURGICAL HISTORY squamous cell carcinoma removed form face DE TOTAL HIP ARTHROPLASTY Right 04/25/2020 TONSILLECTOMY TOTAL HIP ARTHROPLASTY Left 05/17/2024 Dr Moctezuma family history includes Cancer in her father and mother; Diabetes in her father and mother; Hypertension in her father and mother; Stroke in her father. OBJECTIVE: Visit Vitals BP 128/76 (BP Location: Left arm, Patient Position: Sitting, BP Cuff Size: Adult long) Pulse 101 Temp 98.3 F (Temporal) Resp 18 Ht 5' 4.5 Wt 149 lb 6.4 oz SpO2 96% BMI 25.25 kg/m Smoking Status Never BSA 1.76 m Physical Exam Vitals and nursing note reviewed. Constitutional: General: She is not in acute distress. Appearance: Normal appearance. HENT: Head: Normocephalic and atraumatic. Right Ear: External ear normal. Left Ear: External ear normal. Nose: Nose normal. Mouth/Throat: Mouth: Mucous membranes are moist. Eyes: Extraocular Movements: Extraocular movements intact. Conjunctiva/sclera: Conjunctivae normal. Cardiovascular: Rate and Rhythm: Normal rate and regular rhythm. Pulses: Normal pulses. Heart sounds: Normal heart sounds. Pulmonary: Effort: Pulmonary effort is normal. Breath sounds: Normal breath sounds. Abdominal: General: Bowel sounds are normal. There is no distension. Palpations: Abdomen is soft. There is no mass. Tenderness: There is no abdominal tenderness. Musculoskeletal: Cervical back: Normal range of motion and neck supple. Right lower leg: No edema. Left lower leg: No edema. Comments: Walks with cane, forward flexed posture Skin: General: Skin is warm and dry. Capillary Refill: Capillary refill takes 2 to 3 seconds. Findings: No rash. Neurological: General: No focal deficit present. Mental Status: She is alert and oriented to person, place, and time. Psychiatric: Mood and Affect: Mood normal. Behavior: Behavior normal. Thought Content: Thought content normal. Judgment: Judgment normal. ASSESSMENT AND PLAN: Follow up in about 3 months (around 10/04/2024) for Recheck. Problem List Items Addressed This Visit DDD (degenerative disc disease), lumbar Cont tramadol, OARRS reviewed Referr to Pain mgmt Relevant Orders Ambulatory referral to Pain Medicine Chronic kidney disease, stage 3b (HCC) ([facility]) Continue with monitoring labs prn Type 2 diabetes mellitus with diabetic chronic kidney disease ([facility]/HCC) - Primary Remains off meds, d/t renal function, most current A1c test is 5.2% on 05/15/24 and that is without any diabetic meds Unspecified dementia, unspecified severity, without behavioral disturbance, psychotic disturbance, mood disturbance, and anxiety ([facility]) Currently taking aricept, lives on her own, continues to drive, cooking and paying bills Needs flu shot Relevant Orders Flu vaccine, trivalent, adjuvanted, PF ([id number]) (Fluad trivalent single dose syringe) Associated Problem(s): Type 2 diabetes mellitus with diabetic chronic kidney disease ([facility]/HCC) Remains off meds, d/t renal function, most current A1c test is 5.2% on 05/15/24 and that is without any diabetic meds Associated Problem(s): Chronic kidney disease, stage 3b (HCC) (CMS/HCC) Continue with monitoring labs prn Associated Problem(s): Unspecified dementia, unspecified severity, without behavioral disturbance, psychotic disturbance, mood disturbance, and anxiety (CMS/HCC) Currently taking aricept, lives on her own, continues to drive, cooking and paying bills documented in this encounter [facility] 07-04-2024 Instructions Chloe Colmenares NP - 07/04/2024 1:20 PM EDT Pain Management [facility], they should be calling you, if no response by 07/16/24 call me back documented in this encounter [facility] 06-27-2024 History of Presen t illness Narrative HISTORY OF PRESENT ILLNESS: Sandra Rodrigues is an 83 y.o. @ female. Follow up LT FISH LT hip: wound check 6 weeks s/p LT FISH (05/17/24). Walking with cane, FF posture do to back. Taking tramadol 4 times per day-was on this before surgery for back arthritis. Taking TYL. Incision healing well. MEDICATION: Current Outpatient Medications on File Prior to Visit Medication Sig Dispense Refill acetaminophen (Tylenol) 500 MG tablet Take 500 mg by mouth every 6 (six) hours if needed cycloSPORINE (Restasis) 0.05 % ophthalmic emulsion 1 drop in the morning. dilTIAZem CD (Cardizem CD) 120 MG 24 hr capsule Take 1 capsule (120 mg) by mouth Daily 90 capsule 1 donepezil (Aricept) 5 MG tablet Take 1 tablet (5 mg) by mouth at bedtime 90 tablet 1 simvastatin (Zocor) 10 MG tablet Take 1 tablet (10 mg) by mouth at bedtime 90 tablet 1 traMADol (Ultram) 50 MG tablet Take 1 tablet (50 mg) by mouth every 8 (eight) hours if needed for severe pain 90 tablet 2 valsartan-hydroCHLOROthiazide (Diovan-HCT) 80-12.5 MG tablet Take 1 tablet by mouth Daily 90 tablet 1 No current facility-administered medications on file prior to visit. MEDICAL HISTORY: Past Medical History: Diagnosis Date Actinic keratosis Acute glaucoma ([facility]) 10/26/2023 Allergic rhinitis 10/26/2023 Arthritis 10/26/2023 Cancer ([facility]) 10/26/2023 Chronic low back pain, unspecified back pain laterality, unspecified whether sciatica present 10/26/2023 DDD (degenerative disc disease), lumbar 10/26/2023 Hemorrhoids 10/26/2023 Night cramps Squamous cell skin cancer ALLERGIES: Allergies Allergen Reactions Iodine BURNING IN HER SKIN. DOES NOT RECALL HAVING A RASH Pollen Extract VITALS: Visit Vitals Smoking Status Never PHYSICAL EXAM: Ortho Exam LT HIP Ambulating with a cane Scar well healed ROM IMAGING: XR hip left 2 or 3 views Imaging Result: June 27, 2024 x-rays AP and lateral left hip demonstrate total hip replacement in good position alignment without signs of loosening fracture or failure. Impression: Stable appearance of left total hip replacement Bobby Moctezuma D.O. ASSESSMENT: ICD-10-CM 1. Primary osteoarthritis of left hip M16.12 XR hip left 2 or 3 views 2. S/P total left hip arthroplasty Z96.642 PLAN: I recommend a follow up visit in 6 weeks. She will continue using the cane. I did advise the patient that I am leaving my current practice to practice in another state but my colleagues are willing to see her if she has any problems or concerns or if she desires a referral to another inbound ingredient logistics specialist we would be happy to make referral, she states she would like to continue her care here. Dr. Moctezuma obtained history and examined the patient, I am acting as scribe for Dr. Moctezuma/SILVER LUQUE D.O. documented in this encounter [facility] 06-08-2024 Telephone encounter Note PT CALLED ASKING TO GET A REFILL ON HER [facility] NEEDS A NEW PRESCRIPTION [facility] 06-08-2024 Miscellaneous Notes PT CALLED ASKING TO GET A REFILL ON HER [facility] NEEDS A NEW PRESCRIPTION documented in this encounter [facility] 05-30-2024 History of Presen t illness Narrative Images from the original note were not included. HISTORY OF PRESENT ILLNESS: Sandra Rodrigues is an 83 y.o. @ female. Follow up RT FISH LT hip: wound check 13 days s/p LT FISH (05/17/24). Walking with 3 wheeled walker-was using prior to surgery. Taking tramadol 4 times per day-was on this before surgery for back arthritis. Taking TYL. Getting home PT. No longer taking ASA 325, completed Fe. Incision healing well, she reports when dressing was changed last night there was a tiny dot of drainage. Has wound open to air. Denies fever or chills. Admits swelling in LT leg, has improved MEDICATION: Current Outpatient Medications on File Prior to Visit Medication Sig Dispense Refill acetaminophen (Tylenol) 500 MG tablet Take 500 mg by mouth every 6 (six) hours if needed cycloSPORINE (Restasis) 0.05 % ophthalmic emulsion 1 drop in the morning. [] ferrous sulfate (Fe Tabs) 325 (65 Fe) MG EC tablet Take 1 tablet (325 mg) by mouth in the morning. Take with meals. Do not crush, chew, or split.. 30 tablet 0 [] oxyCODONE (Roxicodone) 5 MG immediate release tablet Take 1 tablet (5 mg) by mouth every 6 (six) hours if needed for moderate pain for up to 5 days 20 tablet 0 traMADol (Ultram) 50 MG tablet Take 1 tablet (50 mg) by mouth every 8 (eight) hours if needed for moderate pain 90 tablet 1 [DISCONTINUED] dilTIAZem CD (Cardizem CD) 120 MG 24 hr capsule Take 1 capsule (120 mg) by mouth Daily 90 capsule 1 [DISCONTINUED] donepezil (Aricept) 5 MG tablet Take 1 tablet (5 mg) by mouth at bedtime 90 tablet 1 [DISCONTINUED] simvastatin (Zocor) 10 MG tablet Take 1 tablet (10 mg) by mouth at bedtime 90 tablet 1 [DISCONTINUED] valsartan-hydroCHLOROthiazide (Diovan-HCT) 80-12.5 MG tablet Take 1 tablet by mouth Daily 90 tablet 1 No current facility-administered medications on file prior to visit. MEDICAL HISTORY: Past Medical History: Diagnosis Date Actinic keratosis Acute glaucoma ([facility]) 10/26/2023 Allergic rhinitis 10/26/2023 Arthritis 10/26/2023 Cancer ([facility]) 10/26/2023 Chronic low back pain, unspecified back pain laterality, unspecified whether sciatica present 10/26/2023 DDD (degenerative disc disease), lumbar 10/26/2023 Hemorrhoids 10/26/2023 Night cramps Squamous cell skin cancer ALLERGIES: Allergies Allergen Reactions Iodine BURNING IN HER SKIN. DOES NOT RECALL HAVING A RASH Pollen Extract VITALS: Visit Vitals Smoking Status Never PHYSICAL EXAM: Ortho Exam LEFT HIP Incision healing nicely Using triwalker ASSESSMENT: ICD-10-CM 1. S/P total left hip arthroplasty Z96.642 w/ tendon repair PLAN: We discussed post op restrictions and expectations. Discussed using walker for 2 months to allow the tendon repair to heal. I answered all of the patient's questions. Follow up in one month with xrays, any issues/concerns follow up sooner. Dr. Moctezuma obtained history and examined the patient, I am acting as scribe for Dr. Moctezuma/leo Moctezuma D.O. documented in this encounter [facility] 05-25-2024 History of Presen t illness Narrative Images from the original note were not included. HISTORY OF PRESENT ILLNESS: Sandra Rodrigues is an 83 y.o. @ female. Follow up LT FISH LT hip: 1st po 8 days s/p LT FISH (05/17/24). Walking with 3 wheeled walker-was using prior to surgery. Taking tramadol 4 times per day-was on this before surgery for back arthritis. Taking TYL. Getting home PT. No longer taking ASA 325, completed Fe. Did not get JOHN hose from hospital. Incision healing well, steri strips intact, has not had drainage for several days. Denies fever or chills. Admits swelling in LT leg. MEDICATION: Current Outpatient Medications on File Prior to Visit Medication Sig Dispense Refill valsartan-hydroCHLOROthiazide (Diovan-HCT) 80-12.5 MG tablet Take 1 tablet by mouth Daily 90 tablet 1 acetaminophen (Tylenol) 500 MG tablet Take 500 mg by mouth every 6 (six) hours if needed cycloSPORINE (Restasis) 0.05 % ophthalmic emulsion 1 drop in the morning. dilTIAZem CD (Cardizem CD) 120 MG 24 hr capsule Take 1 capsule (120 mg) by mouth Daily 90 capsule 1 donepezil (Aricept) 5 MG tablet Take 1 tablet (5 mg) by mouth at bedtime 90 tablet 1 ferrous sulfate (Fe Tabs) 325 (65 Fe) MG EC tablet Take 1 tablet (325 mg) by mouth in the morning. Take with meals. Do not crush, chew, or split.. 30 tablet 0 [] oxyCODONE (Roxicodone) 5 MG immediate release tablet Take 1 tablet (5 mg) by mouth every 6 (six) hours if needed for moderate pain for up to 5 days 20 tablet 0 simvastatin (Zocor) 10 MG tablet Take 1 tablet (10 mg) by mouth at bedtime 90 tablet 1 traMADol (Ultram) 50 MG tablet Take 1 tablet (50 mg) by mouth every 8 (eight) hours if needed for moderate pain 90 tablet 1 [DISCONTINUED] oxyCODONE (Oxy-IR) 5 MG immediate release capsule Take 1 capsule (5 mg) by mouth every 6 (six) hours if needed for severe pain for up to 5 days 20 capsule 0 No current facility-administered medications on file prior to visit. MEDICAL HISTORY: Past Medical History: Diagnosis Date Actinic keratosis Acute glaucoma ([facility]) 10/26/2023 Allergic rhinitis 10/26/2023 Arthritis 10/26/2023 Cancer ([facility]) 10/26/2023 Chronic low back pain, unspecified back pain laterality, unspecified whether sciatica present 10/26/2023 DDD (degenerative disc disease), lumbar 10/26/2023 Hemorrhoids 10/26/2023 Night cramps Squamous cell skin cancer ALLERGIES: Allergies Allergen Reactions Iodine BURNING IN HER SKIN. DOES NOT RECALL HAVING A RASH Pollen Extract VITALS: Visit Vitals Smoking Status Never PHYSICAL EXAM: Ortho Exam LEFT HIP Using tri-walker Scant serosanguineous stain proximal incision Normal color and temp ASSESSMENT: ICD-10-CM 1. 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 Reminded to hold off non urgent dental appts for 6 months post op- and abx prophylaxis following: Questions answered in laymen terms at the bedside. The diagnosis, home exercise plan and any ongoing restrictions/ recommendations reviewed. If unable to be reached in office, I recommend evaluation at nearest Emergency Room if any symptoms worsened or new symptoms develop for requiring urgent evaluation. Follow up in one week for wound check, any issues/concerns follow up sooner. Dr. Moctezuma obtained history and examined the patient, I am acting as scribe for Dr. Moctezuma/leo Moctezuma D.O. documented in this encounter [facility] 05-24-2024 History of Presen t illness Narrative Physical Therapy Physical Therapy Daily Visit Patient Name: Sandra Rodrigues Today's Date: 05/24/2024 Subjective Current Problem: Pt is being seen today due to having a left FISH replacement. Pt stated she tried laying on her right side for about 5 seconds. Educated patient not to perform yet. Reviewed FISH precautions. Date of Surgery: 05-17-24 with two night stay. Current deficits: Impaired gait with dependence on an AD, impaired AROM, impaired LE strength, post op pain. Visit number 3.(4 of 8 approved visits 04/13/2024 thru 06/13/2024) Time In: 10:00 pm; Time out: 10:25 am Total time: 25 minutes [id number] Gait training x 15 minutes [id number] TherEx x 10 minutes Pain Management: The patient is complaining of pain located in the left hip region. Pain rating 4/10. The pain is improved by ice , rest , medications including Tylenol. The pain is aggravated by bending activity, position change. The pain is described as aching. Precautions: Standard FISH precautions, WBAT L LE, active hip flexion to 90 degrees, no crossing of LE's, no pivoting ER/IR; no hip abduction x 6 weeks. Prior level of function: Ambulation: Severely antalgic gait pattern without use of an AD. Assistive devices: Has FWW and str cane. ADL and IADL: Independent. Home Environment: Patient lives alone in a one story home with 3 steps to enter with HR. Elevated toilet and walk in shower with grab bars and seat. Objective Examination Functional Mobility: Bed Mobility: SBA Sit to Stand: SBA Stair Negotiation: SBA Ambulation: Ambulated with step to gait pattern with use of walker; fair heel to toe gait pattern with fair knee flexion with swing phase on left LE. Noted increase WB on 3-walker with Ue's. Pt refuses to use a standard FWW. Hip: Active ROM: Left hip flexion/extension 0 to 65 degrees . Passive ROM: Left hip extension/flexion: 0 to 75 degrees with increased muscle guarding. Manual muscle testing: Left hip 2+/5. Palpation: Normal post-op warmth with minimal edema; Incision intact with sterile strips and covered with dressing. Dressing was removed and inspected; minimal serum (dime size) drainage; proximal to mid-line. Special tests: Negative Rafa Sign. Does not have TEDS Knee: Active ROM: WFL Manual muscle testing: Left knee 3/5. Ankle/Foot: Active ROM WFL. Manual muscle testing: Left ankle 4/5. Special tests Rafa's sign Negative. Tinetti Gait and Balance Assessment: Sitting balance: Steady, safe = 1 . Rises from chair: Able, uses arms to help = 1 . Attempts to rise: Able, requires > 1 attempt = 1. Immediate standing balance (first 5 seconds): Steady but uses walker or other support = 1. Standing balance: Steady but uses walker or other support = 1. Nudged: Staggers, grabs, catches self = 1. Eyes closed: Steady = 1 . Turning 360 degrees: Discontinuous steps = 0 Unsteady (grabs, staggers) = 0 . Sitting down: Uses arms or not a smooth motion = 1. Balance Score: 8/16. Indication of gait: No hesitancy = 1. Step of length and height: Step through L = 1. Foot clearance: L foot clears floor = 1 R foot clears floor = 1. Step symmetry: Right and left step length no equal = 0. Step continuity: Stopping or discontinuity between steps = 0. Path: Mild/moderate deviation or uses w/ aid = 1. Trunk: No sway but flex knees or back or uses arms for stability = 1. Walking time: Heels apart = 0. Gait score: 02/15. Total Score = Balance + Gait . Tinetti tool score: < = 18 High. Physical Education Intervention Physical Therapy Education: Pt was educated on the importance of cyrotherapy and elevation. Reviewed proper pillow placement under LE to maintain good extension. Stressed the importance also of ambulating at at least every other hour for 2-5 minutes duration and/or at least stand for a few minutes and completion of HEP 2x/day. Patient was educated with regards to signs and symptoms to monitor with respect to blood clots and infection. Re-educated and reviewed FISH precautions. Therapeutic Exercise : Pt completed keft LE supine exercises of glut sets, quad sets and ankle pumps (hourly) at this time, 10x. Completed standing heel raises, left ham curls and left standing SLR; Added seated LAQ, 10x; HEP updated Gait Training: Gait training this date with walker with instruction for step to gait pattern for left affective LE. Verbal cues were provided fot heel to toe gait pattern and knee flexion during swing phase; fair carryover. Needed cues for upright posture. Worked on ascending/descending 2 steps with one HR with cues for proper sequencing of up with good, down with bad leg; fair carryover at sBA. Therapeutic Activity: Worked on getting on and off of couch and chair; SBA needed with verbal cues for sequencing. Assessment & Plan Assessment Impairments: abnormal gait, impaired balance, impaired physical strength and pain with function Barriers to therapy: Pain Prognosis: good Goals Short Term goals (1-3 weeks) Goal 1 : Patient will demonstrate good compliance and independence with HEP. Goal 2 : Patient will ascend/descend 3 steps with HR and AD with supervision, step to gait pattern. Goal 3 : Patient will ambulate up to 5 minute duration or more with FWW, modified independent with good reciprical gait pattern. Goal 4 : Patient will improve PROM of Left hip from 0 to 90 degrees with pain reported at end range < 2/10. Goal 5 : Pt will demonstrate good FISH precaution with all functional transfers and bed mobility with independence. Long-Term Goals (4-6 weeks) Goal 1 : Patient will ambulate community distances on even and uneven surfaces, independently with no AD, normalized gait pattern and < 1/10 report of pain in left hip. Goal 2 : Patient will improve Left hip/knee strength to 5/5 to assist with gait and transfer performances. Goal 3 : Patient will improve Left hip AROM from 0 to 90 degrees with end range pain < 2/10. Goal 4 : Patient will demonstrate good static and dynamic standing balance for >15 mintues without LOB or increase in hip pain. Goal 5 : Pt will ascend/descend 3 steps with no AD and reciprical gait pattern independently. Goal 6 : Patient will improve Tinetti Balance test to 28/28 to indicate no fall risk. Plan Planned modality interventions: cryotherapy Planned therapy interventions: gait training, functional ROM exercises, strengthening, stretching, therapeutic activities, neuromuscular re-education, manual therapy, bed mobility training, home exercise program and transfer training Frequency: 2-3. Duration in weeks: 8 Treatment plan discussed with: patient Plan details: Educated patient not to over do it and to continue icing hip; patient receptive. Needed to re-stress the importance of her hip precautions especially bending past 90 degrees of flexion. Pt at times is very impulsive. Educated patient not to lay on her side yet until she sees Dr Moctezuma. Will follow up next week. documented in this encounter [facility] 05-22-2024 History of Presen t illness Narrative Physical Therapy Physical Therapy Evaluation Patient Name: Sandra Rodrigues Today's Date: 05/22/2024 Subjective Current Problem: Pt is being seen today due to having a left FISH replacement. Date of Surgery: 05-17-24 with two night stay. Current deficits: Impaired gait with dependence on an AD, impaired AROM, impaired LE strength, post op pain. Visit number 2.(3 of 8 approved visits 04/13/2024 thru 06/13/2024) Time In: 10:00 pm; Time out: 10:25 am Total time: 25 minutes [id number] Gait training x 15 minutes [id number] TherEx x 10 minutes Pain Management: The patient is complaining of pain located in the left hip region. Pain rating 5/10. The pain is improved by ice , rest , medications including Tylenol and Svetlana The pain is aggravated by bending activity, position change. The pain is described as aching. Precautions: Standard FISH precautions, WBAT L LE, active hip flexion to 90 degrees, no crossing of LE's, no pivoting ER/IR; no hip abduction x 6 weeks. Prior level of function: Ambulation: Severely antalgic gait pattern without use of an AD. Assistive devices: Has FWW and str cane. ADL and IADL: Independent. Home Environment: Patient lives alone in a one story home with 3 steps to enter with HR. Elevated toilet and walk in shower with grab bars and seat. Objective Examination Functional Mobility: Bed Mobility: NT--sleeping in recliner Sit to Stand: SBA Stair Negotiation: TBA Ambulation: Ambulated with step to gait pattern with use of walker; fair heel to toe gait pattern with fair knee flexion with swing phase on left LE. Noted increase WB on 3-walker with Ue's. Hip: Active ROM: Left hip flexion/extension 0 to 65 degrees . Passive ROM: Left hip extension/flexion: 0 to 75 degrees with increased muscle guarding. Manual muscle testing: Left hip 2+/5. Palpation: Normal post-op warmth with minimal edema; Incision intact with sterile strips and covered with dressing. Dressing was removed and inspected; minimal serum-bloody drainage. Special tests: Negative Rafa Sign. Does not have TEDS Knee: Active ROM: WFL Manual muscle testing: Left knee 3/5. Ankle/Foot: Active ROM WFL. Manual muscle testing: Left ankle 4/5. Special tests Rafa's sign Negative. Tinetti Gait and Balance Assessment: Sitting balance: Steady, safe = 1 . Rises from chair: Able, uses arms to help = 1 . Attempts to rise: Able, requires > 1 attempt = 1. Immediate standing balance (first 5 seconds): Steady but uses walker or other support = 1. Standing balance: Steady but uses walker or other support = 1. Nudged: Staggers, grabs, catches self = 1. Eyes closed: Steady = 1 . Turning 360 degrees: Discontinuous steps = 0 Unsteady (grabs, staggers) = 0 . Sitting down: Uses arms or not a smooth motion = 1. Balance Score: 8/16. Indication of gait: No hesitancy = 1. Step of length and height: Step through L = 1. Foot clearance: L foot clears floor = 1 R foot clears floor = 1. Step symmetry: Right and left step length no equal = 0. Step continuity: Stopping or discontinuity between steps = 0. Path: Mild/moderate deviation or uses w/ aid = 1. Trunk: No sway but flex knees or back or uses arms for stability = 1. Walking time: Heels apart = 0. Gait score: 02/15. Total Score = Balance + Gait . Tinetti tool score: < = 18 High. Physical Education Intervention Physical Therapy Education: Pt was educated on the importance of cyrotherapy and elevation. Reviewed proper pillow placement under LE to maintain good extension. Stressed the importance also of ambulating at at least every other hour for 2-5 minutes duration and/or at least stand for a few minutes and completion of HEP 2x/day. Patient was educated with regards to signs and symptoms to monitor with respect to blood clots and infection. Re-educated and reviewed FISH precautions. Therapeutic Exercise : Pt completed keft LE supine exercises of glut sets, quad sets and ankle pumps (hourly) at this time, 10x. Completed standing heel raises and left ham curls; added standing SLR; Added seated LAQ, 10x; HEP updated Gait Training: Gait training this date with walker with instruction for step to gait pattern for left affective LE. Verbal cues were provided fot heel to toe gait pattern and knee flexion during swing phase; fair carryover. Needed cues for upright posture. Therapeutic Activity: Worked on getting on and off of couch and chair; SBA needed with verbal cues for sequencing. Assessment & Plan Assessment Impairments: abnormal gait, impaired balance, impaired physical strength and pain with function Barriers to therapy: Pain Prognosis: good Goals Short Term goals (1-3 weeks) Goal 1 : Patient will demonstrate good compliance and independence with HEP. Goal 2 : Patient will ascend/descend 3 steps with HR and AD with supervision, step to gait pattern. Goal 3 : Patient will ambulate up to 5 minute duration or more with FWW, modified independent with good reciprical gait pattern. Goal 4 : Patient will improve PROM of Left hip from 0 to 90 degrees with pain reported at end range < 2/10. Goal 5 : Pt will demonstrate good FISH precaution with all functional transfers and bed mobility with independence. Long-Term Goals (4-6 weeks) Goal 1 : Patient will ambulate community distances on even and uneven surfaces, independently with no AD, normalized gait pattern and < 1/10 report of pain in left hip. Goal 2 : Patient will improve Left hip/knee strength to 5/5 to assist with gait and transfer performances. Goal 3 : Patient will improve Left hip AROM from 0 to 90 degrees with end range pain < 2/10. Goal 4 : Patient will demonstrate good static and dynamic standing balance for >15 mintues without LOB or increase in hip pain. Goal 5 : Pt will ascend/descend 3 steps with no AD and reciprical gait pattern independently. Goal 6 : Patient will improve Tinetti Balance test to 28/28 to indicate no fall risk. Plan Planned modality interventions: cryotherapy Planned therapy interventions: gait training, functional ROM exercises, strengthening, stretching, therapeutic activities, neuromuscular re-education, manual therapy, bed mobility training, home exercise program and transfer training Frequency: 2-3. Duration in weeks: 8 Treatment plan discussed with: patient Plan details: Educated patient not to over do it and to continue icing hip; patient receptive. Needed to re-stress the importance of her hip precautions especially bending past 90 degrees of flexion. Pt at times is very impulsive. documented in this encounter [facility] 05-20-2024 History of Presen t illness Narrative Physical Therapy Physical Therapy Evaluation Patient Name: Sandra Rodrigues Today's Date: 05/20/2024 Subjective Current Problem: Pt is being seen today due to having a left FISH replacement. Date of Surgery: 05-17-24 with two night stay. Current deficits: Impaired gait with dependence on an AD, impaired AROM, impaired LE strength, post op pain. Visit number 1. Time In: 12:05 pm; Time out: 12:50 pm Total time: 45 minutes [id number] Gait training x 15 minutes [id number] TherEx x 10 minutes 22057 Eval x 20 minutes. Pain Management: The patient is complaining of pain located in the left hip region. Pain rating 5/10. The pain is improved by ice , rest , medications including Tylenol and Svetlana The pain is aggravated by bending activity, position change. The pain is described as aching. Precautions: Standard FISH precautions, WBAT L LE, active hip flexion to 90 degrees, no crossing of LE's, no pivoting ER/IR; no hip abduction x 6 weeks. Prior level of function: Ambulation: Severely antalgic gait pattern without use of an AD. Assistive devices: Has FWW and str cane. ADL and IADL: Independent. Home Environment: Patient lives alone in a one story home with 3 steps to enter with HR. Elevated toilet and walk in shower with grab bars and seat. Objective Examination Functional Mobility: Bed Mobility: NT--sleeping in recliner Sit to Stand: SBA Stair Negotiation: TBA Ambulation: Ambulated with step to gait pattern with use of walker; fair heel to toe gait pattern with fair knee flexion with swing phase on left LE. Noted increase WB on 3-walker with Ue's. Hip: Active ROM: Left hip flexion/extension 0 to 65 degrees . Passive ROM: Left hip extension/flexion: 0 to 75 degrees with increased muscle guarding. Manual muscle testing: Left hip 2+/5. Palpation: Normal post-op warmth with minimal edema; Incision intact with sterile strips and covered with dressing. Dressing was removed and inspected; minimal bloody drainage. Special tests: Negative Rafa Sign. Does not have TEDS Knee: Active ROM: WFL Manual muscle testing: Left knee 3/5. Ankle/Foot: Active ROM WFL. Manual muscle testing: Left ankle 4/5. Special tests Rafa's sign Negative. Tinetti Gait and Balance Assessment: Sitting balance: Steady, safe = 1 . Rises from chair: Able, uses arms to help = 1 . Attempts to rise: Able, requires > 1 attempt = 1. Immediate standing balance (first 5 seconds): Steady but uses walker or other support = 1. Standing balance: Steady but uses walker or other support = 1. Nudged: Staggers, grabs, catches self = 1. Eyes closed: Steady = 1 . Turning 360 degrees: Discontinuous steps = 0 Unsteady (grabs, staggers) = 0 . Sitting down: Uses arms or not a smooth motion = 1. Balance Score: 816. Indication of gait: No hesitancy = 1. Step of length and height: Step through L = 1. Foot clearance: L foot clears floor = 1 R foot clears floor = 1. Step symmetry: Right and left step length no equal = 0. Step continuity: Stopping or discontinuity between steps = 0. Path: Mild/moderate deviation or uses w/ aid = 1. Trunk: No sway but flex knees or back or uses arms for stability = 1. Walking time: Heels apart = 0. Gait score: 02/15. Total Score = Balance + Gait . Tinetti tool score: < = 18 High. Physical Education Intervention Physical Therapy Education: Pt was educated on the importance of cyrotherapy and elevation. Reviewed proper pillow placement under LE to maintain good extension. Stressed the importance also of ambulating at at least every other hour for 2-5 minutes duration and/or at least stand for a few minutes and completion of HEP 2x/day. Patient was educated with regards to signs and symptoms to monitor with respect to blood clots and infection. Reviewed FISH precautions. Therapeutic Exercise : Pt completed keft LE supine exercises of glut sets, quad sets and ankle pumps (hourly) at this time, 10x. Completed standing heel raises and left ham curls; HEP issued and instructed. Gait Training: Gait training this date with walker with instruction for step to gait pattern for left affective LE. Verbal cues were provided fot heel to toe gait pattern and knee flexion during swing phase; fair carryover. Therapeutic Activity: Worked on getting on and off of couch and chair; SBA needed with verbal cues for sequencing. Assessment & Plan Assessment Impairments: abnormal gait, impaired balance, impaired physical strength and pain with function Barriers to therapy: Pain Prognosis: good Goals Short Term goals (1-3 weeks) Goal 1 : Patient will demonstrate good compliance and independence with HEP. Goal 2 : Patient will ascend/descend 3 steps with HR and AD with supervision, step to gait pattern. Goal 3 : Patient will ambulate up to 5 minute duration or more with FWW, modified independent with good reciprical gait pattern. Goal 4 : Patient will improve PROM of Left hip from 0 to 90 degrees with pain reported at end range < 2/10. Goal 5 : Pt will demonstrate good FISH precaution with all functional transfers and bed mobility with independence. Long-Term Goals (4-6 weeks) Goal 1 : Patient will ambulate community distances on even and uneven surfaces, independently with no AD, normalized gait pattern and < 1/10 report of pain in left hip. Goal 2 : Patient will improve Left hip/knee strength to 5/5 to assist with gait and transfer performances. Goal 3 : Patient will improve Left hip AROM from 0 to 90 degrees with end range pain < 2/10. Goal 4 : Patient will demonstrate good static and dynamic standing balance for >15 mintues without LOB or increase in hip pain. Goal 5 : Pt will ascend/descend 3 steps with no AD and reciprical gait pattern independently. Goal 6 : Patient will improve Tinetti Balance test to 28/28 to indicate no fall risk. Plan Planned modality interventions: cryotherapy Planned therapy interventions: gait training, functional ROM exercises, strengthening, stretching, therapeutic activities, neuromuscular re-education, manual therapy, bed mobility training, home exercise program and transfer training Frequency: 2-3. Duration in weeks: 8 Treatment plan discussed with: patient Plan details: Educated patient not to over do it and to continue icing hip; patient receptive. Needed to stress the importance of her hip precautions especially bending past 90 degrees of flexion. Pt will continue to benefit from therapy intervention to improve gait training, Left LE strength and ROM and improve functional mobility to return to [facility] documented in this encounter [facility] 05-19-2024 Telephone encounter Note Post op pain rx. PDMP reviewed. Initial rx was sent to mail pharmacy by mistake. That rx was cancelled [facility] [place] Patient notified. [facility] 05-19-2024 Miscellaneous Notes Post op pain rx. PDMP reviewed. Initial rx was sent to mail pharmacy by mistake. That rx was cancelled and new rx sent to [facility] in [place]. Patient notified. documented in this encounter [facility] 05-18-2024 Note XR HIP LT 2-3 VIEWS [...] Akash Sorensen MD on 05/18/2024 12:10 AM [facility] 05-16-2024 Telephone encounter Note Rx for postoperative pain [facility] 05-16-2024 Miscellaneous Notes Rx for postoperative pain documented in this encounter [facility] 05-15-2024 History of Presen t illness Narrative [facility] Ortho 360 in home PT 3x/week or daily if needed - no active abduction for 6 weeks post op - gait train w/walker - WBAT - permanent hip dislocation protocol. documented in this encounter [facility] 04-26-2024 History of Presen t illness Narrative Associated Problem(s): Preoperative clearance BP stable CKD: improved DM: no current meds Will review EKG, reviewed labs from 04/21/24, and will order ECHO If EKG/ECHO ok will clear for surgery Associated Problem(s): Type 2 diabetes mellitus with diabetic chronic kidney disease (HCC) ([facility]/HCC) Off metformin d/t elevation in creatinine Improved after stopping, her recent sugar test was 122 Will keep off meds at this time, most recent A1c test on 500mg metformin was 5.1% 02/27 Associated Problem(s): Chronic kidney disease, stage 3b (HCC) (CMS/HCC) Improved with stopping metformin and diclofenac Associated Problem(s): Essential hypertension (CMS/HCC) Stable on current meds May 17 is surgery need clearance by apr 28. Images from the original note were not included. Sandra Rodrigues is a 83 y.o. female presents with chief complaint of No chief complaint on file. HPI: Medical Clearance for Total hip left Surgery in the past: yes Reaction to anesthesia: no No hx of stroke, DVT/PE Returning to home after surgery, with home PT Heart:no hx of [place] afib or other issues Lungs; no asthma, COPD, no sleep apnea Specialist: Dr Cj Moctezuma at [facility] This is a chronic problem. The current episode started more than 1 year ago. The problem is unchanged. The problem is controlled. Pertinent negatives include no anxiety, chest pain, headaches, orthopnea, palpitations, peripheral edema, PND or shortness of breath. There are no associated agents to hypertension. Risk factors for coronary artery disease include diabetes mellitus and sedentary lifestyle. Past treatments include angiotensin blockers and diuretics. The current treatment provides significant improvement. There are no compliance problems. Hypertensive end-organ damage includes kidney disease. SUBJECTIVE: MEDICATIONS: Current Outpatient Medications Medication Instructions acetaminophen (TYLENOL) 500 mg, Oral, Every 6 hours PRN cycloSPORINE (Restasis) 0.05 % ophthalmic emulsion 1 drop, Daily RT dilTIAZem CD (CARDIZEM CD) 120 mg, Oral, Daily donepezil (ARICEPT) 5 mg, Oral, Nightly ferrous sulfate (FE TABS) 325 mg, Oral, Daily with breakfast, Do not crush, chew, or split. simvastatin (ZOCOR) 10 mg, Oral, Nightly traMADol (ULTRAM) 50 mg, Oral, Every 8 hours PRN valsartan-hydroCHLOROthiazide (Diovan-HCT) 80-12.5 MG tablet 1 tablet, Oral, Daily ALLERGIES: Allergies Allergen Reactions Iodine BURNING IN HER SKIN. DOES NOT RECALL HAVING A RASH Pollen Extract REVIEW OF SYMPTOMS: Review of Systems Constitutional: Negative for appetite change, chills and fever. HENT: Negative for congestion, ear pain and sore throat. Eyes: Negative for pain, discharge, redness and visual disturbance. Respiratory: Negative for cough, shortness of breath and wheezing. Cardiovascular: Negative for chest pain, palpitations, orthopnea, leg swelling and PND. Gastrointestinal: Negative for abdominal pain, blood in stool, constipation, diarrhea, nausea and vomiting. Genitourinary: Negative for difficulty urinating, dysuria and frequency. Musculoskeletal: Positive for arthralgias and back pain. Negative for joint swelling and myalgias. Skin: Negative for rash and wound. Neurological: Negative for dizziness, tremors, seizures, syncope and headaches. Psychiatric/Behavioral: Negative for behavioral problems, self-injury and suicidal ideas. The patient is not nervous/anxious. Hematological: Does not bruise/bleed easily. Endocrine: Negative for polydipsia, polyphagia and polyuria. Allergic/Immunologic: Negative for environmental allergies and food allergies. PAST MEDICAL HISTORY Past Medical History: Diagnosis Date Actinic keratosis Acute glaucoma ([facility]) 10/26/2023 Allergic rhinitis 10/26/2023 Arthritis 10/26/2023 Cancer ([facility]) 10/26/2023 Chronic low back pain, unspecified back pain laterality, unspecified whether sciatica present 10/26/2023 DDD (degenerative disc disease), lumbar 10/26/2023 Hemorrhoids 10/26/2023 Night cramps Squamous cell skin cancer Past Surgical History: Procedure Laterality Date CHOLECYSTECTOMY DILATION AND CURETTAGE HEMORRHOIDECTOMY LAMINECTOMY 2006 NEUROMA SURGERY Right removal of neuroma foot OTHER SURGICAL HISTORY squamous cell carcinoma removed form face DE TOTAL HIP ARTHROPLASTY Right 04/25/2020 TONSILLECTOMY family history includes Cancer in her father and mother; Diabetes in her father and mother; Hypertension in her father and mother; Stroke in her father. OBJECTIVE: Visit Vitals BP 110/66 (BP Location: Left arm, Patient Position: Sitting, BP Cuff Size: Adult long) Pulse 100 Temp 98.3 F (Temporal) Resp 18 Ht 5' 4.5 Wt 144 lb 12.8 oz SpO2 99% BMI 24.47 kg/m Smoking Status Never BSA 1.73 m Physical Exam Vitals and nursing note reviewed. Constitutional: General: She is not in acute distress. Appearance: Normal appearance. HENT: Head: Normocephalic and atraumatic. Right Ear: Tympanic membrane and external ear normal. There is impacted cerumen (removed large amount cerumen). Left Ear: Tympanic membrane, ear canal and external ear normal. Nose: Nose normal. No congestion or rhinorrhea. Mouth/Throat: Mouth: Mucous membranes are moist. Pharynx: No oropharyngeal exudate or posterior oropharyngeal erythema. Eyes: Extraocular Movements: Extraocular movements intact. Conjunctiva/sclera: Conjunctivae normal. Neck: Vascular: No carotid bruit. Cardiovascular: Rate and Rhythm: Normal rate and regular rhythm. Pulses: Normal pulses. Heart sounds: Normal heart sounds. Pulmonary: Effort: Pulmonary effort is normal. No respiratory distress. Breath sounds: Normal breath sounds. No wheezing. Abdominal: General: Bowel sounds are normal. There is no distension. Palpations: Abdomen is soft. There is no mass. Tenderness: There is no abdominal tenderness. Musculoskeletal: General: Deformity present. Cervical back: Normal range of motion and neck supple. Right lower leg: No edema. Left lower leg: No edema. Lymphadenopathy: Cervical: No cervical adenopathy. Skin: General: Skin is warm and dry. Capillary Refill: Capillary refill takes 2 to 3 seconds. Findings: No rash. Neurological: General: No focal deficit present. Mental Status: She is alert and oriented to person, place, and time. Psychiatric: Mood and Affect: Mood normal. Behavior: Behavior normal. Thought Content: Thought content normal. Judgment: Judgment normal. ASSESSMENT AND PLAN: No follow-ups on file. Problem List Items Addressed This Visit Essential hypertension (CMS/HCC) Stable on current meds Chronic kidney disease, stage 3b (HCC) (CMS/HCC) Improved with stopping metformin and diclofenac Relevant Orders Echocardiogram 2D complete 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) Off metformin d/t elevation in creatinine Improved after stopping, her recent sugar test was 122 Will keep off meds at this time, most recent A1c test on 500mg metformin was 5.1% 02/27 Relevant Orders Echocardiogram 2D complete Unspecified dementia, unspecified severity, without behavioral disturbance, psychotic disturbance, mood disturbance, and anxiety (CMS/HCC) Preoperative clearance - Primary BP stable CKD: improved DM: no current meds Will review EKG, reviewed labs from 04/21/24, and will order ECHO If EKG/ECHO ok will clear for surgery Relevant Orders Echocardiogram 2D complete documented in this encounter [facility] 04-25-2024 History of Presen t illness Narrative Images from the original note were not included. HISTORY OF PRESENT ILLNESS: Sandra Rodrigues is an 83 y.o. @ female. Chief complaint LT hip pain Left hip: here to discuss options. Prehab completed 04/13 Left hip pain intermittently for years and worse x February 2024. NKI. Using walker for hip and back pain. Pain is over lateral and posterior hip, thigh and in the groin. Describes as aching, sharp and stabbing. Worse with walking, standing, and laying down. Can't stay in one position for very long. Able to cross LT leg over RT but it is difficult and causes pain. + wake at HS. Pain 7/10 at rest today, goes to 10+/10 with WB. Admits weakness. Leg feels like it will give out. Denies N/T. Taking tramadol, TYL and using biofreeze. Treatment(s) include(d)XR [facility] AP Pelvis 02/27/20, XR [facility] L-spine 06/03/22, Tramadol, XR LT Hip [facility] 09/23/22, XR 03/23/24 [place] [facility]. Prehab and HEP started 04/13. Pt recently referred to [facility] pain clinic for lumbar DDD. History of lumbar fusion L4-[address] Moctezuma. MEDICATION: Current Outpatient Medications on File Prior to Visit Medication Sig Dispense Refill acetaminophen (Tylenol) 500 MG tablet Take 500 mg by mouth every 6 (six) hours if needed dilTIAZem CD (Cardizem CD) 120 MG 24 hr capsule Take 1 capsule (120 mg) by mouth Daily 90 capsule 1 donepezil (Aricept) 5 MG tablet Take 1 tablet (5 mg) by mouth at bedtime 90 tablet 1 simvastatin (Zocor) 10 MG tablet Take 1 tablet (10 mg) by mouth at bedtime 90 tablet 1 traMADol (Ultram) 50 MG tablet Take 50 mg by mouth every 8 (eight) hours if needed valsartan-hydroCHLOROthiazide (Diovan-HCT) 80-12.5 MG tablet Take 1 tablet by mouth Daily 90 tablet 1 cycloSPORINE (Restasis) 0.05 % ophthalmic emulsion 1 drop in the morning. No current facility-administered medications on file prior to visit. MEDICAL HISTORY: Past Medical History: Diagnosis Date Actinic keratosis Acute glaucoma ([facility]) 10/26/2023 Allergic rhinitis 10/26/2023 Arthritis 10/26/2023 Cancer ([facility]) 10/26/2023 Chronic low back pain, unspecified back pain laterality, unspecified whether sciatica present 10/26/2023 DDD (degenerative disc disease), lumbar 10/26/2023 Hemorrhoids 10/26/2023 Night cramps Squamous cell skin cancer ALLERGIES: Allergies Allergen Reactions Iodine BURNING IN HER SKIN. DOES NOT RECALL HAVING A RASH Pollen Extract VITALS: Visit Vitals Ht 5' 4.5 Wt 144 lb BMI 24.34 kg/m Smoking Status Never BSA 1.72 m Review of Systems General: Fatigue denies. Fever denies. Night sweats denies. ENT: Decreased hearing denies. Respiratory: Cough denies. Shortness of breath denies. Cardiovascular: Chest pain denies. Cyanosis denies. Irregular heartbeat denies. Gastrointestinal: Comments denies incontinence of stool . Nausea denies. Hematology: Bleeding problems denies. Genitourinary: Comments denies dribbling. Incontinence denies. Musculoskeletal: CommentsSee [facility] for details. Skin: Rash denies. Neurologic: Dizziness denies. Headache denies. Examination General Examination: GENERAL EXAMINATION in no acute distress, well developed, well nourished . HEART: no jugular venous distention . LUNGS: regular unlabored, normal effort . NEUROLOGIC: alert and oriented . PSYCH: oriented to person, place, time and situation . PHYSICAL EXAM: Ortho Exam LEFT HIP TENDERNESS: anterior, lateral ROM: 20 IR and 30 ER LEG LENGTH: 1/2cm shorter left STRENGTH: 3/5 SKIN: Intact GAIT: limping, using rolling walker IMAGING: March 23, 2024 x-rays from the [place] office AP pelvis and frog lateral of the left hip demonstrate stable appearing right total hip replacement. Gxoo-do-hijw in the left hip with subchondral sclerosis and slightly dysplastic acetabulum. Impression: Advanced osteoarthritis left hip and stable appearing right hip replacement Bobby Moctezuma D.O. ASSESSMENT: ICD-10-CM 1. Primary osteoarthritis of left hip M16.12 ferrous sulfate (Fe Tabs) 325 (65 Fe) MG EC tablet 2. Left hip pain M25.552 PLAN: I discussed options of surgical and non surgical treatment. Including conservative treatment, use of non-steriodal anti inflammatories and the risk associated with this, Physical therapy, home exercise, weight control and injections. I also discussed with the patient operative options and the risks/benefits of each and chances for success/ failure. Discussion included but was not limited to the risk of infection, blood clot,nerve injury, leg length discrepancy, instability, blood clot, failure to improve and need for additional surgery and . I answered all of the patients questions. I recommend a LEFT Total hip replacement. The patient was instructed to daniella the operative site with the word Yes prior to arriving at the hospital and the patient verbalized an understanding. The patient wants to proceed and informed consent is obtained. Dr. Moctezuma obtained history and examined the patient, I am acting as scribe for Dr. Moctezuma/leo Moctezuma D.O. 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, unspecified type documented in this encounter [facility]* Diagnosis Encounter for subsequent annual wellness visit (AWV) in Medicare patient- Primary Essential hypertension (CMS/HCC) Unspecified essential hypertension Other hyperlipidemia (CMS/HCC) 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, without long-term current use of insulin (CMS/[facility]) DDD (degenerative disc disease), lumbar Degeneration of lumbar or lumbosacral intervertebral disc Stage 3b chronic kidney disease (HCC) (CMS/[facility]) Routine general medical examination at health care facility Routine general medical examination at a health care facility Essential hypertension (CMS/HCC)- Primary Unspecified essential hypertension Stage 3b chronic kidney disease (HCC) ([facility]) DDD (degenerative disc disease), lumbar Degeneration of lumbar or lumbosacral intervertebral disc Seasonal allergic rhinitis, unspecified trigger DDD (degenerative disc disease), lumbar- Primary Degeneration of lumbar or lumbosacral intervertebral disc 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, without long-term current use of insulin (CMS/[facility]) Essential hypertension (CMS/HCC) Unspecified essential hypertension Stage 3b chronic kidney disease (HCC) ([facility]) Other hyperlipidemia (CMS/[facility]) Unintentional weight loss Loss of weight 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, 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 Preoperative clearance- Primary Unspecified pre-operative examination Type 2 diabetes mellitus with diabetic chronic kidney disease (CMS/[facility]) Chronic kidney disease, stage 3b (HCC) ([facility]) Unspecified dementia, unspecified severity, without behavioral disturbance, psychotic disturbance, mood disturbance, and anxiety ([facility]) Essential hypertension ([facility]) Unspecified essential hypertension Primary osteoarthritis of left hip- Primary S/P total left hip arthroplasty documented in this encounter [facility] HealthcareEvaluation note* Diagnosis Encounter for subsequent annual wellness visit (AWV) in Medicare patient- Primary Essential hypertension ([facility]) Unspecified essential hypertension Other hyperlipidemia ([facility]) 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, without long-term current use of insulin (/[facility]) DDD (degenerative disc disease), lumbar Degeneration of lumbar or lumbosacral intervertebral disc Stage 3b chronic kidney disease (HCC) ([facility]) Routine general medical examination at health care facility Routine general medical examination at a health care facility Essential hypertension ([facility]/HCC)- Primary Unspecified essential hypertension Stage 3b chronic kidney disease (HCC) (CMS/[facility]) DDD (degenerative disc disease), lumbar Degeneration of lumbar or lumbosacral intervertebral disc Seasonal allergic rhinitis, unspecified trigger DDD (degenerative disc disease), lumbar- Primary Degeneration of lumbar or lumbosacral intervertebral disc 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, without long-term current use of insulin (CMS/HCC) Essential hypertension (CMS/HCC) Unspecified essential hypertension Stage 3b chronic kidney disease (HCC) (/[facility]) Other hyperlipidemia (CMS/HCC) Unintentional weight loss Loss of weight 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, 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 Preoperative clearance- Primary Unspecified pre-operative examination Type 2 diabetes mellitus with diabetic chronic kidney disease ([facility]/HCC) Chronic kidney disease, stage 3b (HCC) ([facility]) Unspecified dementia, unspecified severity, without behavioral disturbance, psychotic disturbance, mood disturbance, and anxiety ([facility]/HCC) Essential hypertension ([facility]) Unspecified essential hypertension Type 2 diabetes mellitus with diabetic chronic kidney disease ([facility])- Primary Chronic kidney disease, stage 3b (HCC) ([facility]) Unspecified dementia, unspecified severity, without behavioral disturbance, psychotic disturbance, mood disturbance, and anxiety ([facility]) Degeneration of intervertebral disc of lumbar region, unspecified whether pain present Needs flu shot Need for prophylactic vaccination and inoculation against influenza documented in this encounter [facility]* Diagnosis Postoperative pain- Primary Other acute postoperative pain documented in this encounter [facility]* Diagnosis Status post left hip replacement- Primary Acute postoperative pain of left hip Difficulty walking Difficulty in walking Primary osteoarthritis of left hip documented in this encounter [facility]* Diagnosis Primary osteoarthritis of left hip- Primary Left hip pain Pain in joint, pelvic region and thigh documented in this encounter [facility]* Diagnosis Preoperative clearance- Primary Unspecified pre-operative examination Type 2 diabetes mellitus with diabetic chronic kidney disease (HCC) ([facility]) Chronic kidney disease, stage 3b (HCC) ([facility]) Unspecified dementia, unspecified severity, without behavioral disturbance, psychotic disturbance, mood disturbance, and anxiety ([facility]) Essential hypertension ([facility]) Unspecified essential hypertension documented in this encounter [facility]* Diagnosis Essential hypertension ([facility]) Unspecified essential hypertension documented in this encounter [facility]* Diagnosis Chronic low back pain, unspecified back pain laterality, unspecified whether sciatica present- Primary documented in this encounter [facility]* Diagnosis Primary osteoarthritis of left hip- Primary Arthritis of right hip Status post total replacement of right hip documented in this encounter [facility]* Diagnosis S/P total left hip arthroplasty- Primary documented in this encounter [facility]* Diagnosis Postoperative pain- Primary Other acute postoperative pain documented in this encounter [facility]* Diagnosis S/P total left hip arthroplasty- Primary documented in this encounter [facility]* Diagnosis 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, 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 Other hyperlipidemia (CMS/HCC) Essential hypertension (CMS/HCC) Unspecified essential hypertension documented in this encounter [facility]* Diagnosis Encounter for subsequent annual wellness visit (AWV) in Medicare patient- Primary Essential hypertension (CMS/HCC) Unspecified essential hypertension Other hyperlipidemia (CMS/HCC) 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, without long-term current use of insulin (CMS/HCC) DDD (degenerative disc disease), lumbar Degeneration of lumbar or lumbosacral intervertebral disc Stage 3b chronic kidney disease (HCC) (CMS/HCC) Routine general medical examination at health care facility Routine general medical examination at a health care facility Essential hypertension (CMS/HCC)- Primary Unspecified essential hypertension Stage 3b chronic kidney disease (HCC) ([facility]) DDD (degenerative disc disease), lumbar Degeneration of lumbar or lumbosacral intervertebral disc Seasonal allergic rhinitis, unspecified trigger DDD (degenerative disc disease), lumbar- Primary Degeneration of lumbar or lumbosacral intervertebral disc 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, without long-term current use of insulin (CMS/HCC) Essential hypertension (CMS/HCC) Unspecified essential hypertension Stage 3b chronic kidney disease (HCC) (CMS/HCC) Other hyperlipidemia (CMS/HCC) Unintentional weight loss Loss of weight 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, 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 Preoperative clearance- Primary Unspecified pre-operative examination Type 2 diabetes mellitus with diabetic chronic kidney disease (CMS/HCC) Chronic kidney disease, stage 3b (HCC) ([facility]/HCC) Unspecified dementia, unspecified severity, without behavioral disturbance, psychotic disturbance, mood disturbance, and anxiety (CMS/HCC) Essential hypertension (CMS/HCC) Unspecified essential hypertension 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 Chronic kidney disease, stage 3b (HCC) (CMS/HCC) Unspecified dementia, unspecified severity, without behavioral disturbance, psychotic disturbance, mood disturbance, and anxiety (CMS/HCC) Degeneration of intervertebral disc of lumbar region, unspecified whether pain present Needs flu shot Need for prophylactic vaccination and inoculation against influenza Essential hypertension (CMS/HCC)- Primary Unspecified essential hypertension Unspecified dementia, unspecified severity, without behavioral disturbance, psychotic disturbance, mood disturbance, and anxiety (CMS/HCC) Type 2 diabetes mellitus with diabetic chronic kidney disease (CMS/HCC) Chronic kidney disease, stage 3b (HCC) (CMS/HCC) 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, without long-term current use of insulin (CMS/HCC) 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, 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 Other hyperlipidemia (CMS/HCC) Degeneration of intervertebral disc of lumbar region with discogenic back pain and lower extremity pain- Primary documented in this encounter [facility] HealthcareEvaluation note* Diagnosis Encounter for subsequent annual wellness visit (AWV) in Medicare patient- Primary Essential hypertension (CMS/HCC) Unspecified essential hypertension Other hyperlipidemia (CMS/HCC) 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, without long-term current use of insulin (CMS/HCC) DDD (degenerative disc disease), lumbar Degeneration of lumbar or lumbosacral intervertebral disc Stage 3b chronic kidney disease (HCC) (CMS/HCC) Routine general medical examination at health care facility Routine general medical examination at a health care facility Essential hypertension (CMS/HCC)- Primary Unspecified essential hypertension Stage 3b chronic kidney disease (HCC) ([facility]/HCC) DDD (degenerative disc disease), lumbar Degeneration of lumbar or lumbosacral intervertebral disc Seasonal allergic rhinitis, unspecified trigger DDD (degenerative disc disease), lumbar- Primary Degeneration of lumbar or lumbosacral intervertebral disc 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, without long-term current use of insulin (CMS/HCC) Essential hypertension (CMS/HCC) Unspecified essential hypertension Stage 3b chronic kidney disease (HCC) (CMS/HCC) Other hyperlipidemia (CMS/HCC) Unintentional weight loss Loss of weight 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, 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 Preoperative clearance- Primary Unspecified pre-operative examination Type 2 diabetes mellitus with diabetic chronic kidney disease (CMS/HCC) Chronic kidney disease, stage 3b (HCC) (CMS/HCC) Unspecified dementia, unspecified severity, without behavioral disturbance, psychotic disturbance, mood disturbance, and anxiety (CMS/HCC) Essential hypertension (CMS/HCC) Unspecified essential hypertension 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 Chronic kidney disease, stage 3b (HCC) (CMS/HCC) Unspecified dementia, unspecified severity, without behavioral disturbance, psychotic disturbance, mood disturbance, and anxiety (CMS/HCC) Degeneration of intervertebral disc of lumbar region, unspecified whether pain present Needs flu shot Need for prophylactic vaccination and inoculation against influenza Essential hypertension (CMS/HCC)- Primary Unspecified essential hypertension Unspecified dementia, unspecified severity, without behavioral disturbance, psychotic disturbance, mood disturbance, and anxiety (CMS/HCC) Type 2 diabetes mellitus with diabetic chronic kidney disease (CMS/HCC) Chronic kidney disease, stage 3b (HCC) ([facility]/HCC) 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, without long-term current use of insulin (CMS/HCC) 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, 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 Other hyperlipidemia ([facility]/HCC) documented in this encounter [facility] HealthcareEvaluation note* Diagnosis Encounter for subsequent annual wellness visit (AWV) in Medicare patient- Primary Essential hypertension ([facility]/HCC) Unspecified essential hypertension Other hyperlipidemia ([facility]/HCC) 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, without long-term current use of insulin ([facility]) DDD (degenerative disc disease), lumbar Degeneration of lumbar or lumbosacral intervertebral disc Stage 3b chronic kidney disease (HCC) ([facility]) Routine general medical examination at health care facility Routine general medical examination at a health care facility Essential hypertension ([facility]/HCC)- Primary Unspecified essential hypertension Stage 3b chronic kidney disease (HCC) ([facility]) DDD (degenerative disc disease), lumbar Degeneration of lumbar or lumbosacral intervertebral disc Seasonal allergic rhinitis, unspecified trigger DDD (degenerative disc disease), lumbar- Primary Degeneration of lumbar or lumbosacral intervertebral disc 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, without long-term current use of insulin (CMS/HCC) Essential hypertension ([facility]/HCC) Unspecified essential hypertension Stage 3b chronic kidney disease (HCC) ([facility]/HCC) Other hyperlipidemia ([facility]/HCC) Unintentional weight loss Loss of weight 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, 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 Preoperative clearance- Primary Unspecified pre-operative examination Type 2 diabetes mellitus with diabetic chronic kidney disease (CMS/HCC) Chronic kidney disease, stage 3b (HCC) ([facility]/HCC) Unspecified dementia, unspecified severity, without behavioral disturbance, psychotic disturbance, mood disturbance, and anxiety (CMS/HCC) Essential hypertension (CMS/HCC) Unspecified essential hypertension 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 Chronic kidney disease, stage 3b (HCC) ([facility]) Unspecified dementia, unspecified severity, without behavioral disturbance, psychotic disturbance, mood disturbance, and anxiety (CMS/HCC) Degeneration of intervertebral disc of lumbar region, unspecified whether pain present Needs flu shot Need for prophylactic vaccination and inoculation against influenza Essential hypertension ([facility]/HCC)- Primary Unspecified essential hypertension Unspecified dementia, unspecified severity, without behavioral disturbance, psychotic disturbance, mood disturbance, and anxiety (CMS/HCC) Type 2 diabetes mellitus with diabetic chronic kidney disease (CMS/HCC) Chronic kidney disease, stage 3b (HCC) ([facility]) 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, without long-term current use of insulin ([facility]/HCC) 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, 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 Other hyperlipidemia ([facility]) S/P total left hip arthroplasty- Primary Left hip pain Pain in joint, pelvic region and thigh documented in this encounter [facility] Summary Purpose Family History No Family History Records FoundNo Family History Records FoundNo Family History Records FoundNo Family History Records Found Advance Directives No Advanced Directives Records FoundNo Advanced Directives Records FoundNo Advanced Directives Records FoundNo Advanced Directives Records Found Reason for Referral Specialty Diagnoses / Procedures Referred By Contac t Referred To Contact Radiology Diagnoses 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) Chronic kidney disease, stage 3b (HCC) ([facility]) Preoperative clearance Procedures Echocardiogram 2D complete Chloe Colmenares, RADHA [address] [place] [address] [facility] [address] [place] [address] Referral ID Status Reason Start Date Expiration Date Visits Requested Visits Authorized [id number] Incomplete Perform Procedure 04/26/2024 10/23/2024 1 1 Specialty Diagnoses / Procedures Referred By Contac t Referred To Contact Physical Therapy Diagnoses Primary osteoarthritis of left hip Procedures DE OFFICE/OUTPATIENT NEW HIGH MDM 60 MINUTES Brennen Nagel, GEAR [employer]TER [address] [place] [address] Mary Castillo, PT [address] [place] [address] Referral ID Status Reason Start Date Expiration Date Visits Requested Visits Authorized [id number] Pending Review Specialty Services Required 05/15/2024 11/11/2024 1 1 Additional Source Comments INFORMATION SOURCE (unrecogn ized section and content) DATE CREATED AUTHOR 08/11/2021 [facility] DATE CREATED AUTHOR AUTHOR'S ORGANIZ ATION 05/21/2024 [facility] DATE CREATED AUTHOR AUTHOR'S ORGANIZ ATION 07/14/2024 [facility] DATE CREATED AUTHOR AUTHOR'S ORGANIZ ATION 10/15/2024 [facility] EPIC Reason for Visit (unrecogniz ed section and content) Reason Onset Date Comments Med Refill 06/08/2024 Reason Comments Follow-up Reason Comments Pain Reason Comments New Med Request Reason Comments Diabetes Care Teams (unrecognized sec tion and content) Chief Dietitian Relationship Specialty Start Date End Date Soy Walton MD [address] [place] [address] PCP - General Family Medicine 10/19/23 Chloe Colmenares NP Referring Physician Family Medicine 05/11/23 Chief Dietitian Relationship Specialty Start Date End Date Soy Walton MD [address] [place] [address] PCP - General Family Medicine 10/19/23 Chloe Colmenares NP Referring Physician Family Medicine 05/11/23 Chief Dietitian Relationship Specialty Start Date End Date Unallocated, Alfredo Boland MD [address] [place] [address] PCP - General Family Medicine 06/21/24 Chloe Colmenares NP Referring Physician Family Medicine 05/11/23 Chief Dietitian Relationship Specialty Start Date End Date Unallocated, Alfredo Boland MD [address] [place] [address] PCP - General Family Medicine 06/21/24 Chloe Colmenares NP Referring Physician Family Medicine 05/11/23 Chief Dietitian Relationship Specialty Start Date End Date Unallocated, Alfredo Boland MD [address] [place] [address] PCP - General Family Medicine 06/21/24 Chloe Colmenares NP Referring Physician Family Medicine 05/11/23 Chief Dietitian Relationship Specialty Start Date End Date Unallocated, Alfredo Boland MD [address] [place] [address] PCP - General Family Medicine 06/21/24 Chloe Colmenares NP Referring Physician Family Medicine 05/11/23 Chief Dietitian Relationship Specialty Start Date End Date Soy Walton MD [address] [place] [phone] PCP - General Family Medicine 07/04/24 Chloe Colmenares NP [address] [place] [address] Nurse Practitioner Family Medicine 07/04/24 Chief Dietitian Relationship Specialty Start Date End Date Soy Walton MD [address] [place] [phone] PCP - General Family Medicine 10/19/23 Chloe Colmenares NP Referring Physician Family Medicine 05/11/23 Chief Dietitian Relationship Specialty Start Date End Date Soy Walton MD [address] [place] [phone] PCP - General Family Medicine 10/19/23 Chloe Colmenares NP Referring Physician Family Medicine 05/11/23 Chief Dietitian Relationship Specialty Start Date End Date Soy Walton MD [address] [place] [phone] PCP - General Family Medicine 10/19/23 Chloe Colmenares NP Referring Physician Family Medicine 05/11/23 Chief Dietitian Relationship Specialty Start Date End Date Soy Walton MD [address] [place] [address] PCP - General Family Medicine 10/19/23 Chloe Colmenares NP Referring Physician Family Medicine 05/11/23 Chief Dietitian Relationship Specialty Start Date End Date Soy Walton MD [address] [place] [address] PCP - General Family Medicine 10/19/23 Chloe Colmenares NP Referring Physician Family Medicine 05/11/23 Chief Dietitian Relationship Specialty Start Date End Date Soy Walton MD [address] [place] [phone] PCP - General Family Medicine 10/19/23 Chloe Colmenares NP Referring Physician Family Medicine 05/11/23 Chief Dietitian Relationship Specialty Start Date End Date Soy Walton MD [address] [place] [address] PCP - General Family Medicine 10/19/23 Chloe Colmenares NP Referring Physician Family Medicine 05/11/23 Chief Dietitian Relationship Specialty Start Date End Date Soy Walton MD [address] [place] [phone] PCP - General Family Medicine 10/19/23 Chloe Colmenares NP Referring Physician Family Medicine 05/11/23 Chief Dietitian Relationship Specialty Start Date End Date Soy Walton MD [address] [place] [phone] PCP - General Family Medicine 10/19/23 Chloe Colmenares NP Referring Physician Family Medicine 05/11/23 Chief Dietitian Relationship Specialty Start Date End Date Soy Walton MD [address] [place] [phone] PCP - General Family Medicine 10/19/23 Chloe Colmenares NP Referring Physician Family Medicine 05/11/23 Chief Dietitian Relationship Specialty Start Date End Date Soy Walton MD [address] [place] [address] PCP - General Family Medicine 10/19/23 Chloe Colmenares NP Referring Physician Family Medicine 05/11/23 Chief Dietitian Relationship Specialty Start Date End Date Soy Walton MD [address] [place] [phone] PCP - General Family Medicine 07/04/24 Chloe Colmenares NP [address] [place] [address] Nurse Practitioner Family Medicine 07/04/24 Chief Dietitian Relationship Specialty Start Date End Date Soy Walton MD [address] [place] [phone] PCP - General Family Medicine 07/04/24 Chloe Colmenares NP [address] [place] [address] Nurse Practitioner Family Medicine 07/04/24 Chief Dietitian Relationship Specialty Start Date End Date Soy Walton MD [address] [place] [phone] PCP - General Family Medicine 07/04/24 Chloe Colmenares NP [address] [place] [address] Nurse Practitioner Family Medicine 07/04/24 Chief Dietitian Relationship Specialty Start Date End Date Soy Walton MD [address] [place] [phone] PCP - General Family Medicine 07/04/24 Chloe Colmenares NP [address] [place] [address] Nurse Practitioner Family Medicine 07/04/24 Chief Dietitian Relationship Specialty Start Date End Date Soy Walton MD [address] [place] [address] PCP - General Family Medicine 07/04/24 Chloe Colmenares NP [address] [place] [phone] Nurse Practitioner Family Medicine 07/04/24 Chief Dietitian Relationship Specialty Start Date End Date Soy Walton MD [address] [place] [phone] PCP - General Family Medicine 07/04/24 Chloe Colmenares NP [address] [place] [address] Nurse Practitioner Family Medicine 07/04/24 FOR RECORDS PERTAINING TO PATIENTS WHO ARE [...] BE BASED ON THE PRIMARY CLINICAL RECORDS. [facility] [employer] [facility]. provides no warranty or guarantee of the accuracy or completeness of information in this document.
[2024-10-16 14:48] LABS: Basophils Percent Auto 0.5 % (0.2-2.0); Eosinophils Absolute Auto 0.2 10^3/uL (0.0-0.7); Eosinophils Percent Auto 3.3 % (0.9-7.0); Hemoglobin 11.3 g/dL (12.0-16.0); Immature Granulocytes Abs Auto 0.02 10^3/uL (0.00-0.03); Immature Granulocytes Pct Auto 0.3 % (0.0-0.5); Lymphocytes Absolute Auto 1.4 10^3/uL (1.2-3.8); Lymphocytes Percent Auto 20.8 % (20.5-60.0); Mean Corpuscular HGB Conc 33.2 g/dL (29.9-35.2); Mean Corpuscular Hemoglobin 31.8 pg (26.7-34.0); Mean Corpuscular Volume 95.8 fL (81.0-99.0); Mean Platelet Volume 9.4 fL (9.5-13.5); Monocytes Absolute Auto 0.8 10^3/uL (0.3-0.8); Monocytes Percent Auto 11.6 % (1.7-12.0); Neutrophils Absolute Auto 4.2 10^3/uL (1.4-6.5); Neutrophils Percent Auto 63.5 % (43.0-75.0); Platelet Count 326 10^3/uL (150-450); Red Blood Count 3.55 10^6/uL (4.20-5.40); White Blood Count 6.7 10^3/uL (4.0-11.0)
[2024-10-16 15:31] LABS: Anion Gap 15.2; BUN Creatinine Ratio 20.1; Calcium 9.4 mg/dL (8.5-10.1); Carbon Dioxide 29.2 mmol/L (21.0-32.0); Chloride 102 mmol/L (98-107); Estimated GFR (African America 37 (>=60 mL/min/1.73m^2); Estimated GFR (Non-African Ame 31 (>=60 mL/min/1.73m^2); Glucose 87 mg/dL (74-106); Potassium 4.4 mmol/L (3.5-5.1); Sodium 142 mmol/L (136-145)
== END 2024-10-16 14:09 | disposition home or self-care (01) ==
LOC: LAB 14:10
PROVIDERS: PCP Nurse Practitioner; Visit Provider Nurse Practitioner
DX: N18.32 Chronic kidney disease, stage 3b (principal)
CPT/HCPCS: 36415; 80048; 85025

== ENCOUNTER 2024-12-12 13:19 | Outpatient (OUT) | payer MEDICARE, SELFPAY ==
--- NOTE | 2024-12-12 13:23 | MR_ITS ---
The [address] [address] Patient Name: ASHLEIGH FRANKLIN MRN: [facility]:[id number] date: 1940 Sex: F Assigned Patient Location: MRI Current Patient Location: MRI Accession/Order Number: [id number] Exam Date: 12/12/2024 14:37 Report Date: 12/12/2024 14:45 At the request of: DANIELA JACOBO MD Procedure: MR lumbar spine wo con MRI Lumbar Spine withoutcontrast TECHNIQUE: Multiplanar T1 and T2-weighted imaging of lumbar spine obtained without contrast. HISTORY: Chronic lumbar pain. Lumbar stenosis. Claudication. History of lumbar fusion at the L4-5 COMPARISON: None The last fully segmented vertebral pair is operationally defined as L5/S1. POST SURGERY CHANGES: None BONE MARROW INFILTRATION: None BONE MARROW EDEMA: None BONY ALIGNMENT: Mild straightening LUMBAR FRACTURE: None BONY LESIONS: None KIDNEYS: No hydronephrosis is identified. AORTA: No aortic aneurysm is seen. CONUS MEDULLARIS : The distal spinal cord is in adequate position without abnormality. Additional findings CONJOINED NERVE ROOT: None Lower thoracic level: Unremarkable L1-2 :Disc space narrowing. Diffuse disc bulge. Flattening of anterior thecal sac. Mild central canal stenosis. Posterior element hypertrophy. Mild bilateral neural foraminal narrowing. L2-3: Disc space narrowing with degenerative endplate changes. Diffuse disc bulge with posterior element hypertrophy with moderate to severe central canal stenosis. Marked bilateral neural foraminal narrowing greater on the right. L3-4: Marked disc space narrowing and endplate changes. Endplate spurring and diffuse disc bulge and extensive posterior hypertrophy with severe central canal stenosis. Marked bilateral neural foraminal narrowing greater on the left. L4-5: Fixation hardware artifact. Interbody fusion change. Posterior decompression. Patent central canal. Mild bilateral neural foraminal narrowing L5-S1: Disc space narrowing. Mild anterolisthesis. Patent central canal. Moderate bilateral neural foraminal narrowing. Posterior element hypertrophy. MR/MR lumbar spine wo con IMPRESSION: Unremarkable L4-5 fusion changes. L3-4 severe central canal stenosis secondary to disc and osteophyte complex with posterior element hypertrophy. Moderate severe central canal stenosis at L2-3 level. Pre-MRI plain film assessment: None Impression dictated by: Smooth Gaytan M.D.12/12/2024 2:45 PM Dictation Location: [place] [address] Electronically authenticated by: [id number] Y Date: 12/12/2024 14:45
--- OUTSIDE RECORDS SUMMARY | 2024-12-12 13:26 | XMS_ITS | CCD ---
Author Organization [facility] Care Team Providers Care Precinct Commanding Officer Name Role Phone REQUEST, DR NONE LISTED [...] Unavailable HOUSE, DR PINZON Consulting Unavailable REQUEST, DR PARIKH LISTED Admitting Unavaila ble REQUEST, NONE LISTED Consulting Unavaila ble REQUEST, NONE LISTED Attending Unavaila ble HOUSE, DR PINZON Primary Care Unavailable JOSE ELIAS, TOMASA Marcano Referring Unavailable HOUSE, YIMI Brown Primary Care Unavailable JOSE ELIAS, TOMASA Marcano Attending Unavailable JOSE ELIAS, TOMASA Marcano Referring Unavailable HOUSE, YIMI Brown Primary Care Unavailable JOSE ELIAS, TOMASA Marcano Referring Unavailable HOUSE, YIMI Brown Primary Care Unavailable JOSE ELIAS, TOMASA Marcano Referring Unavailable DEDRA, CHLOE Brower Primary Care Unavailable JOSE ELIAS, TOMASA Marcano Admitting Unavailable JOSE ELIAS, TOMASA Marcano Attending Unavailable HOUSE, YIMI Brown Primary Care Unavailable Dedar DEPUTY CORONER INVESTIGATOR, Chloe Unavailable Anton ELIZALDE, Soy Primary Care Provider Unallocated , Noms Provider Primary Care Provi lexa Soy Walton MD Primary Care Provider Dedra DEPUTY CORONER INVESTIGATOR, Chloe Unavailable Jac ELIZALDE, Jackson Valdez Attending Unavailable Yimi Inman DO Primary Care Provider Dedra CUSTOM SHOEMAKER-MANAGER VALIDATION, Chloe J Primary Care Provider DEDRA, CHLOE Attending Unavailable RBOE, BRENNEN Kramer Attending Unavailable NAGEL, BRENNEN Kramer Referring Unavailable PETITTI, WILLARD Marcano Attending Unavailable AICHHOLShailesh, CHLOE Attending Unavailable AICHHOLZ, CHLOE Attending Unavailable PETITTI, WILLARD Marcano Attending Unavailable AICHHOLShailesh, CHLOE Attending Unavailable JOSEE LIAS, TOMASA Marcano Attending Unavailable JOSE ELIAS, TOMASA Marcano Referring Unavailable ENEDINA PHELPS Attending Unavailable JOSE ELIAS, TOMASA Marcano Referring Unavailable ROBE, BRENNEN Kramer Attending Unavailable SYMONEHMEGHANA, CHLOE Attending Unavailable MCKOY, MARY Trinh Attending Unavailable NAGEL, BRENNEN Kramer Referring Unavailable MCKOY, MARY Trinh Attending Unavailable NAGEL, BRENNEN Kramer Referring Unavailable JOSE ELIAS, TOMASA Marcano Attending Unavailable JOSE ELIAS, TOMASA Marcano Attending Unavailable JOSE ELIAS, TOMASA Marcano Attending Unavailable JOSE ELIAS, TOMASA Marcano Referring Unavailable SYMONEHMEGHANA, CHLOE Attending Unavailable Allergies Allergy Classification Reported Allergen(s) Allergy Type Date of Onset Reaction(s) Facility (1 source) Adhesive agent Drug allergy (disorder) [address] [facility] Repository (20 sources) Iodine; Translations: [IODINE] Drug Allergy 0 [facility] Repository (2 sources) Latex; Translations: [LATEX] Propensity to adverse reactions to drug (disorder) 4 Rash [facility] Repository (3 sources) Pollen; Translations: [POLLEN EXTRACTS] Propensity to adverse reactions to drug (disorder) 0 [facility] Repository (20 sources) Pollen Propensity to adverse reactions 0 [facility] Medications Current Medications Medication Drug Class(es) Dates Sig (Normalized) Sig (Original) amoxicillin 500 mg oral tablet (7 sources) Penicillin-class Antibacterial Start: 10-12-2024 take 4 tablets by mouth once at mealtime amoxicillin (Amoxil) 500 MG tablet Indications: S/P total left hip arthroplasty 4 tabs PO once 30-60 mins before procedure with food 4 tablet 3 10/12/2024 Active aspirin 325 mg delayed release oral tablet (3 sources) Platelet Aggregation Inhibitor, Nonsteroidal Anti-inflammatory Drug Start: 05-18-2024 End: 06-18-2024 take 1 tablet by mouth in the morning aspirin 325 mg EC tablet Take 1 tablet (325 mg total) by mouth in the morning for 30 days. 05/19/2024 06/18/2024 Active 24 hr dilTIAZem hydrochloride 120 mg extended release oral capsule (20 sources) Calcium Channel Abel Start: 02-29-2024 End: 01-08-2025 take 1 capsule by mouth once daily dilTIAZem CD (Cardizem CD) 120 MG 24 hr capsule Indications: 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, unspecified type Take 1 capsule (120 mg) by mouth Daily 90 capsule 1 10/10/2024 01/08/2025 Active take 1 capsule by mo [facility] every twenty-four hours in the morning dilTIAZem CD (CARDIZEM CD) 120 mg 24 hr capsule Take 1 capsule (120 mg total) by mouth in the morning. Active donepezil hydrochloride 5 mg oral tablet (20 sources) Start: 02-29-2024 End: 01-08-2025 take 1 tablet by mouth at bedtime donepezil (Aricept) 5 MG tablet Indications: Memory impairment of gradual onset Take 1 tablet (5 mg) by mouth at bedtime 90 tablet 1 10/10/2024 01/08/2025 Active hydroCHLOROthiazide 12.5 mg / valsartan 80 mg oral tablet (20 sources) Thiazide Diuretic, Angiotensin 2 Receptor Abel Start: 02-29-2024 End: 01-08-2025 take 1 tablet by mouth once daily valsartan-hydroCH LOROthiazide (Diovan-HCT) 80-12.5 MG tablet Indications: Essential hypertension (CMS/HCC) Take 1 tablet by mouth Daily 90 tablet 1 10/10/2024 01/08/2025 Active take 1 tablet by vernell once in the morning valsartan-hydroCHLOROthiazide (DIOVAN-HC T) 80-12.5 mg per tablet Take 1 tablet by mouth in the morning. Active ammonium lactate 120 mg/ml topical lotion (2 sources) Start: 11-02-2024 End: 11-02-2025 ammonium lactate (Lac-Hydrin ) 12 % lotion Indications: Seborrheic keratosis Apply to affected areas on body daily. 396 g 11 11/02/2024 11/02/2025 Active melatonin 10 mg oral tablet (11 sources) melatonin 10 MG tablet Take 10 mg by mouth as needed at bedtime (insomia) Active uyybjewy-kgep-CU-calcium &mi ns (THERAGRAN-M) 9 mg iron-400 mcg tablet (3 sources) epuaetvy-nldj-IZ -calcium &mins (THERAGRAN-M) 9 mg iron-400 mcg tablet Take 1 tablet by mouth daily. veiyqypz-mjbt-MM -calcium &mins (THERAGRAN-M) 9 mg iron-400 mcg tablet Take 1 tablet by mouth daily. Active oxyCODONE hydrochloride 5 mg oral tablet (9 sources) Opioid Agonist Start: 05-19-2024 End: 05-24-2024 take 1 tablet by mouth every six hours for pain oxyCODONE (Roxicodone) 5 MG immediate release tablet Indications: Postoperative pain Take 1 tablet (5 mg) by mouth every 6 (six) hours if needed for moderate pain for up to 5 days 20 tablet 05/19/2024 05/24/2024 Active Start: 05-17-2024 End: 05-19-2024 take 1 tablet by mouth every four hours as needed for pain oxyCODONE (ROXICODONE) immediate release tablet 5 mg Start: 05-16-2024 End: 05-21-2024 take 1 capsule [...] acetaminophen 500 mg oral tablet (20 sources) Start: 05-17-2024 End: 05-19-2024 take 1000 mg by mouth every six hours 1,000 mg, oral, Every 6 hours scheduled, First dose on Wed05/17/24 at 1800, Start 6 hours after the pre-op dose. Start: 05-17-2024 End: 05-17-2024 take 650 mg by mouth once 650 mg, oral, Once, On Wed at 1030, For 1 dose, Pre-op take 1 tablet by vernell th every six hours as needed acetaminophen (Tylenol) 500 MG tablet Take 500 mg by mouth every 6 (six) hours if needed Active bisacodyl 10 mg rectal suppository (1 source) Stimulant Laxative Start: 05-19-2024 End: 05-19-2024 10 mg, rectal, As needed, constipation, if no BM within 6 hours of administering Milk of Magnesia, Starting on Wed05/19/24 at 0000, Start Post-Op Day 2 Look-alike/sound-alike medication - verify indication for use. calcium chloride 0.0014 meq/ml / potassium chloride 0.004 meq/ml / sodium chloride 0.103 meq/ml / sodium lactate 0.028 meq/ml injectable solution (1 source) Start: 05-17-2024 End: 05-17-2024 take 2 mL intravenously every hour 50 mL/hr, intravenous, Continuous, Starting on Wed05/17/24 at 0945, Pre-op, If fluid restriction is not indicated, infuse at a rate up to 5 mL/kg/hr not to exceed the total replacement volume (2 ml/kg/hr) from the time NPO status was initiated. ceFAZolin 2000 mg injection (1 source) Cephalosporin Antibacterial Start: 05-17-2024 End: 05-18-2024 take 2000 mg intravenously every eight hours 2,000 mg, intravenous, at 100 mL/hr, Administer over 30 Minutes, Every 8 hours, First dose on Wed05/17/24 at 2000, For 2 doses, Pharmacy to adjust per renal function; Start 8 hours after pre-op dose for total of 3 doses including pre-op dose. Infuse all doses within 24 hours of initial dose. For patient less than 120 kg. Look-alike/sound-alike medication - verify indication for use., Indication: Surgical prophylaxis celecoxib 200 mg oral capsule (1 source) Nonsteroidal Anti-inflammator y Drug Start: 05-17-2024 End: 05-17-2024 take 200 mg by mouth once 200 mg, oral, Once, On Wed05/17/24 at 1030, For 1 dose, Pre-op, Look-alike/sound-alike medication - verify indication for use. Start: 05-17-2024 End: 05-17-2024 take 200 mg by mouth once 200 mg, oral, Once, On Wed at 1030, For 1 dose, Pre-op, Look-alike/sound-alike medication - verify indication for use. cholecalciferol 0.125 mg oral tablet (1 source) Vitamin D End: 04-21-2024 take 1 tablet by mouth once daily cholecalciferol, vitamin D3, 5,000 units tablet Take 5,000 Units by mouth daily. 04/21/2024 Discontinued cycloSPORINE 0.5 mg/ml ophthalmic suspension (1 source) Calcineurin Inhibitor Immunosuppressant End: 04-21-2024 take 1 drop(s) into the eye(s) once daily cycloSPORINE (RESTASIS) 0.05 % ophthalmic emulsion 1 drop daily. 04/21/2024 Discontinued cycloSPORINE (Restasis) 0.05 % ophthalmic emulsion (20 sources) End: 07-04-2024 take 1 drop(s) into the eye(s) in the morning cycloSPORINE (Restasis) 0.05 % ophthalmic emulsion 1 drop in the morning. 07/04/2024 Discontinued (Therapy completed) take 1 drop(s) into the eye(s) in the morning cycloSPORINE (Restasis) 0.05 % ophthalmi c emulsion 1 drop in the morning. Active docusate sodium 50 mg / sennosides, correction 8.6 mg oral tablet (1 source) Start: 05-18-2024 End: 05-19-2024 take 1 tablet by mouth twice daily for diarrhea, then take 1 tablet by mouth once daily for diarrhea 1 tablet, oral, 2 times daily, First dose on Wed05/18/24 at 0900, Start Post-Op Day 1: Hold for diarrhea ferrous sulfate 325 mg oral tablet (16 sources) Start: 05-17-2024 End: 05-19-2024 take 325 mg by mouth twice daily at mealtime 325 mg, oral, 2 times daily with meals, First dose on Wed05/17/24 at 1700, Give ferrous sulfate 2 hours before or 4 hours after antacids. Start: 04-25-2024 End: 05-25-2024 take 1 tablet by mouth at mealtime ferrous sulfate (Fe Tabs) 325 (65 Fe) MG EC tablet Indications: Primary osteoarthritis of left hip Take 1 tablet (325 mg) by mouth in the morning. Take with meals. Do not crush, chew, or split.. 30 tablet 04/25/2024 05/25/2024 Active hydrOXYzine hydrochloride 10 mg oral tablet (1 source) Antihistamine Start: 05-17-2024 End: 05-19-2024 take 10 mg by mouth three times daily as needed 10 mg, oral, 3 times daily PRN, itching, Starting on Wed05/17/24 at 1434, Look-alike/sound-alike medication - verify indication for use. lactobacillus acidophilus [id number] unt / pectin 100 mg oral tablet (1 source) End: 04-21-2024 take 1 tablet by mouth three times daily at mealtime acidophilus-pectin, citrus 25 million cell -100 mg tablet Take 1 tablet by mouth 3 (three) times a day with meals. 04/21/2024 Discontinued magnesium hydroxide 80 mg/ml oral suspension (1 source) Start: 05-19-2024 End: 05-19-2024 30 mL, oral, 2 times daily PRN, if no BM by post-op day 2, Starting on Wed05/19/24 at 0000, Start Post-Op Day 2: DO NOT use in Renal/Dialysis patients Shake well. metFORMIN hydrochloride 500 mg oral tablet (1 source) Biguanide End: 04-21-2024 take 1 tablet by mouth twice daily metFORMIN (GLUCOPHAGE) 500 mg tablet Take 1 tablet by mouth 2 (two) times a day. 04/21/2024 Discontinued morphine injection 2 mg (1 source) Start: 05-17-2024 End: 05-19-2024 take 2 mg intravenously every two hours as needed morphine injection 2 mg 2 ml ondansetron 2 mg/ml injection (1 source) Serotonin-3 Receptor Antagonist Start: 05-17-2024 End: 05-19-2024 take 4 mg intravenously every six hours as needed for nausea and vomiting 4 mg, intravenous, Every 6 hours PRN, nausea, vomiting, Starting on Wed05/17/24 at 1434, Administer over 2-5 minutes. 1000 ml sodium chloride 9 mg/ml injection (1 source) Start: 05-17-2024 End: 05-18-2024 take 125 mL intravenously every hour 125 mL/hr, intravenous, Continuous, Starting on Wed05/17/24 at 1445 tranexamic acid 650 mg oral tablet (1 source) Antifibrinolytic Agent Start: 05-17-2024 End: 05-17-2024 take 1950 mg by mouth once 1,950 mg, oral, Once, On Wed05/17/24 at 0945, For 1 dose, Pre-op Problems Active Problems Problem Classification Problem Date [...] 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] Onset: 04-24-2020 Resolved: 04-27-2020 09-13-2023 Chronic Other connective tissue disease (1 source) Presence of left artificial hip joint; Translations: [Presence of left artificial hip joint] Onset: 05-17-2024 Chronic Other connective tissue disease (20 sources) History of repair of hip joint; Translations: [Presence of right artificial hip joint] Onset: 10-26-2023 10-26-2023 Chronic Other connective tissue disease (9 sources) History of total hip arthroplasty; Translations: [Presence of left artificial hip joint] 06-27-2024 Chronic Other nervous system disorders (20 sources) Difficulty walking; Translations: [Difficulty in walking, not elsewhere classified] Onset: 05-20-2024 05-20-2024 Chronic Other nervous system disorders (2 sources) Postoperative pain ; Translations: [Other acute postprocedural pain] 05-19-2024 Episodic Other skin disorders (20 sources) Seborrheic keratosis; Translations: [Other seborrheic keratosis] Onset: 09-13-2023 09-13-2023 Episodic Other skin disorders (2 sources) Lentiginosis; Translations: [Other melanin hyperpigmentation] 11-02-2024 Episodic Other upper respiratory disease (20 sources) Allergic rhinitis; Translations: [Allergic rhinitis, unspecified] Onset: 10-26-2023 10-26-2023 Chronic Spondylosis; intervertebral disc disorders; other back problems (20 sources) Spondylosis without myelopathy or radiculopathy, lumbar region; Translations: [Degeneration of lumbar intervertebral disc] Onset: 02-18-2021 02-29-2024 Chronic Unclassified (1 source) Degenerative Joint Disease Left Hip Onset: 05-17-2024 Viral infection (3 sources) Viral infection, unspecified; Translations: [Herpesviral vesicular dermatitis] Onset: 02-21-2021 11-02-2024 Episodic Past or Other Problems Problem Classification Problem [...] Episodic Immunizations and screening for infectious disease (20 sources) Encounter for immunization; Translations: [Needs influenza immunization] Onset: 07-15-2021 Episodic Malaise and fatigue (1 source) Weakness; Translations: [WEAKNESS] Onset: 02-18-2021 Episodic Mood disorders (20 sources) Mood disorders Onset: 04-25-2020 Resolved: 10-26-2023 10-26-2023 Other aftercare (1 source) senior care (current) use of aspirin; Translations: [GAUGER DELIVERY CURRENT USE OF ASPIRIN] Onset: 02-18-2021 Episodic Other aftercare (1 source) Other long-term (current) drug therapy; Translations: [OTH GAUGER DELIVERY CURRENT DRUG THERAPY] Onset: 02-18-2021 Episodic Other aftercare (1 source) senior care (current) use of oral hypoglycemic drugs; Translations: [[facility] USE ORAL HYPOGLYCEMIC DX] Onset: 02-18-2021 Episodic [...] [Abnormal weight loss] Onset: 02-29-2024 02-29-2024 Episodic Residual codes; unclassified (1 source) Acquired [...] [Acute cystitis] Onset: 02-18-2021 Resolved: 04-26-2024 Episodic Results Test Name Value Interpretation Reference Range Facility ALL CBC WITH AUTO DIFFon BASOPHILS ABSOLUTE AUTO 0 [facility] Basophils/100 WBC (Bld) 0.5 % 0.2 - 2.0 % [facility] Eosinophils/100 WBC (Bld) 3.3 % 0.9 - 7.0 % [facility] Erythrocyte distribution width (RBC) [Ratio] 14 % 11.0 - 15.0 % [facility] Hematocrit (Bld) [Volume fraction] 34 % Low 36.0 - 48.0 % [facility] Hemoglobin (Bld) [Mass/Vol] 11.3 g/dL Low 12.0 - 16.0 g/dL [facility] IMMATURE GRANULOCYTES ABS AUTO 0.02 [facility] Immature granulocytes/100 WBC (Bld) 0.3 % 0.0 - 0.5 % [facility] Interpretation and review of laboratory results Abnormal [facility] LYMPHOCYTES ABSOLUTE AUTO 1.4 [facility] Lymphocytes/100 WBC (Bld) 20.8 % 20.5 - 60.0 % [facility] MCH (RBC) [Entitic mass] 31.8 pg 26.7 - 34.0 pg [facility] MCHC (RBC) [Mass/Vol] 33.2 g/dL 29.9 - 35.2 g/dL [facility] MCV (RBC) [Entitic vol] 95.8 fL 81.0 - 99.0 fL [facility] MONOCYTES ABSOLUTE AUTO 0.8 [facility] Monocytes/100 WBC (Bld) 11.6 % 1.7 - 12.0 % [facility] NEUTROPHILS ABSOLUTE AUTO 4.2 [facility] Neutrophils/100 WBC (Bld) 63.5 % 43.0 - 75.0 % [facility] Platelet mean volume (Bld) [Entitic vol] 9.4 fL Low 9.5 - 13.5 [facility]2 [facility] PLT 326 [facility] RBC 3.55 Low [facility] WBC 6.7 [facility] XR Hip - left 3 [facility] [...] Unremarkable left total hip arthroplasty. Brennen Nagel CUSTOM SHOEMAKER-MANAGER VALIDATION [facility] GeoOP e Radiology Study observation (narrative) [facility] HbA1c (Bld) [Mass fraction]o n 10-10-2024 Interpretation and review of laboratory results Normal [facility] [place] [facility]ology and Cell countson 10-10-2024 HbA1c (Bld) [Mass fraction] 5.30 % [facility] ALL BASIC METABOLIC PANELon 06-27-2024 Anion gap [Moles/Vol] 15.4 mmol/L [facility] Calcium [Mass/Vol] 9.5 mg/dL 8.5 - 10. 1 mg/dL [facility] Chloride [Moles/Vol] 105 mmol/L 98 - 10 7 mmol/L [facility] CO2 [Moles/Vol] 26 mmol/L 21.0 - 32.0 mmol/L [facility] Creatinine [Mass/Vol] 1.57 mg/dL High 0.55 - 1.02 mg/dL [facility] GFR/1.73 sq M.predicted CKD-EPI (S/P/Bld) [Vol rate/Area] 38 Low >=60 mL/min/1.73m 2 [facility] Glucose [Mass/Vol] 111 mg/dL High 74 - 106 mg/dL [facility] Interpretation and review of laboratory results Abnormal [facility] Potassium [Moles/Vol] 4.4 mmol/L 3.5 - 5.1 mmol/L [facility] Sodium [Moles/Vol] 142 mmol/L 136 - 145 mmol/L [facility] TBH EGFR-NON AF LITHUANIAN 31 Low >=60 mL/min/1.73m 2 [facility] Urea nitrogen [Mass/Vol] 21 mg/dL High 7.0 - 18.0 mg/dL [facility] Urea nitrogen/Creatinine [Mass ratio] 13.4 mg/mg [facility] Youneeq e XR Hip - left 3 [facility] 06-07 Imaging Result: June 27, 2024 x-rays AP and lateral left hip demonstrate total hip replacement in good position alignment without signs of loosening fracture or failure. Impression: Stable appearance of left total hip replacement Bobby Moctezuma D.O. [facility] Rad[facility] Study observation (narrative) [facility] XR Pelvis and Hip - left 2 V iewson 05-18-2024 Akash Sorensen MD - 05/18/2024 Clinical history: Postoperative evaluation. Comparisons: None. Findings: [...] Akash Sorensen MD on 05/18/2024 12:10 AM DVTel XR Pelvis and Hip - left 2 V iewsOrdered By: Akash Sorensen on 05-18-2024 [facility] Work Phone: XR Pelvis and Hip - left 2 V iewson 05-17-2024 Radiology Study observation (narrative) [facility] HGB A1C (GLYCO-HGB)on 2023 Glucose [Mass/Vol] 103 mg/dL Normal [facility] Comment on above: Performed By: #### H A1C #### [facility] ([id number]) [address], [address] [place] [address] HbA1c (Bld) [Mass fraction] 5.2 % Normal 4.4-5.6 [facility] Comment on above: Result Comment: NOTE ADA Guidelines Result HgbA1c Normal : less than 5.7 % Prediabetes : 5.7 % to 6.4 % Diabetes : > 6.4 % Use with caution in patients with abnormal hemoglobin variants as the half-life of red blood cells and in vivo glycation rates are affected. Performed By: #### H A1C #### [facility] ([id number]) [address] [place] [address] Hemoglobin A1con 05-15-2024 Average glucose Estimated from glycated hemoglobin (Bld) [Mass/Vol] 103 mg/dL [facility] HbA1c (Bld) [Mass fraction] 5.2 % 4.4 - 5.6 % [facility] Comment on above: NOTE ADA Guidelines Result HgbA1c Normal : less than 5.7 % Prediabetes : 5.7 % to 6.4 % Diabetes : > 6.4 % Use with caution in patients with abnormal hemoglobin variants as the half-life of red blood cells and in vivo glycation rates are affected. [facility] BASIC METABOLIC PANLon 04-21 Anion gap [Moles/Vol] 13 mmol/L Normal 5-15 [facility] Comment on above: Performed By: #### C BCA, BMP #### [facility] ([id number]) [address], [address] [place] [address] Calcium [Mass/Vol] 9.7 mg/dL Normal 8.5-10.5 [facility] Comment on above: Performed By: #### C BCA, BMP #### [facility] ([id number]) [address], [address] [place] [address] Chloride [Moles/Vol] 103 mmol/L Normal 98-109 [facility] Comment on above: Performed By: #### C BCA, BMP #### [facility] ([id number]) [address] [place] [address] CO2 [Moles/Vol] 25 mmol/L Normal 22-32 [facility] Comment on above: Performed By: #### C BCA, BMP #### [facility] ([id number]) [address] [place] [address] Creatinine [Mass/Vol] 1.43 mg/dL High 0.40-1.00 [facility] Comment on above: Result Comment: METH OD TRACEABLE TO IDMS STANDARD Performed By: #### C BCA, BMP #### [facility] ([id number]) [address] [facility] [address] [place] [address] GFR/1.73 sq M.predicted among non-blacks MDRD (S/P/Bld) [Vol rate/Area] 36 mL/min/{1.73_m2} Low >59 [facility] Comment on above: Result Comment: Reported eGFR is based on the CKD-EPI 2020 equation that does not use a race coefficient. Performed By: #### C BCA, BMP #### [facility] ([id number]) [address] [facility] [address] [place] [address] Glucose [Mass/Vol] 122 mg/dL High 65-99 [facility] Comment on above: Performed By: #### C BCA, BMP #### [facility] ([id number]) [address] [address] [place] [address] Potassium [Moles/Vol] 3.7 mmol/L Normal 3.5-5.0 [facility] Comment on above: Performed By: #### C BCA, BMP #### [facility] ([id number]) [address] [place] [address] Sodium [Moles/Vol] 141 mmol/L Normal 134-146 [facility] Comment on above: Performed By: #### C BCA, BMP #### [facility] ([id number]) [address] [address] [place] [address] Urea nitrogen [Mass/Vol] 30 mg/dL High 5-27 [facility] Comment on above: Performed By: #### C BCA, BMP #### [facility] ([id number]) [address] [address] [place] [address] CBC AND AUTO DIFFon 04-21-20 24 ABSOLUTE BASOPHIL 0.1 X10E9/L Normal 0.0-0.2 [facility] Comment on above: Performed By: #### C BCA, BMP #### [facility] ([id number]) [address] [place] [address] ABSOLUTE NEUTROPHIL 3.4 X10E9/L Normal 1.5-6.6 [facility] Comment on above: Performed By: #### C BCA, BMP #### [facility] ([id number]) [address] [place] [address] Basophils/100 WBC (Bld) 1.0 % Normal [facility] Comment on above: Performed By: #### C LARRY, BMP #### [facility] ([id number]) [address] [place] [address] Eosinophils (Bld) [#/Vol] 0.2 10*3/uL Normal 0.0-0.4 [facility] Comment on above: Performed By: #### C LARRY, BMP #### [facility] ([id number]) [address] [place] [address] Eosinophils/100 WBC (Bld) 4.3 % Normal [facility] Comment on above: Performed By: #### C LARRY, BMP #### [facility] ([id number]) [address] [place] [address] Erythrocyte distribution width (RBC) [Ratio] 15.3 % High 11.5-15.0 [facility] Comment on above: Performed By: #### C LARRY, BMP #### [facility] ([id number]) [address], [address] [place] [address] Hematocrit (Bld) [Volume fraction] 32.6 % Low 35-47 [facility] Comment on above: Performed By: #### C LARRY, BMP #### [facility] ([id number]) [address], [address] [place] [address] Hemoglobin (Bld) [Mass/Vol] 11.1 g/dL Low 11.7-15.5 [facility] Comment on above: Performed By: #### C BCA, BMP #### [facility] ([id number]) [address], [address] [place] [address] Lymphocytes (Bld) [#/Vol] 1.1 10*3/uL Normal 1.0-3.5 [facility] Comment on above: Performed By: #### C LARRY, BMP #### [facility] ([id number]) [address], [address] [place] [address] Lymphocytes/100 WBC (Bld) 20.0 % Normal [facility] Comment on above: Performed By: #### C LARRY, BMP #### [facility] ([id number]) [address] [address] [place] [address] MCH (RBC) [Entitic mass] 31.0 pg Normal 27-34 [facility] Comment on above: Performed By: #### C LARRY, BMP #### [facility] ([id number]) [address] [place] [address] MCHC (RBC) [Mass/Vol] 34.0 g/dL Normal 32-36 [facility] Comment on above: Performed By: #### C LARRY, BMP #### [facility] ([id number]) [address] [place] [address] MCV (RBC) [Entitic vol] 91 fL Normal 80-100 [facility] Comment on above: Performed By: #### C BCA, BMP #### [facility] ([id number]) [address] [place] [address] Monocytes (Bld) [#/Vol] 0.6 10*3/uL Normal 0-0.9 [facility] Comment on above: Performed By: #### C BCA, BMP #### [facility] ([id number]) [address] [place] [address] Monocytes/100 WBC (Bld) 11.7 % Normal [facility] Comment on above: Performed By: #### C LARRY, BMP #### [facility] ([id number]) [address], [facility] [address] [place] [address] Neutrophils/100 WBC (Bld) 63.0 % Normal [facility] Comment on above: Performed By: #### Farhan JUAREZ, BMP #### [facility] ([id number]) [address], [facility] [address] [place] [address] Platelet mean volume (Bld) [Entitic vol] 8.3 fL Normal 7-12 [facility] Comment on above: Performed By: #### Farhan JUAREZ, BMP #### [facility] ([id number]) [address] [address] [place] [address] Platelets (Bld) [#/Vol] 241 10*3/uL Normal 150-450 [facility] Comment on above: Performed By: #### Farhan JUAREZ, BMP #### [facility] ([id number]) [address], [facility] [address] [place] [address] RBC COUNT 3.58 X10E12/L Low 3.80-5.20 [facility] Comment on above: Performed By: #### Farhan JUAREZ, BMP #### [facility] ([id number]) [address] [address] WBC (Bld) [#/Vol] 5.4 10*3/uL Normal 4.0-11.0 [facility] Comment on above: Performed By: #### Farhan JUAREZ, BMP #### [facility] ([id number]) [address] [address] [place] [address] CULTURE URINEon 03-11-2021 CULTURE URINE Culture Observations: LIGHT GROWTH OF MIXED GENITAL NASIR. NO POTENTIAL PATHOGENS SEEN. Normal [facility] Comment on above: Performed By: #### Farhan BC #### [facility] [address] [place], [place] [address] Justina Jovita UA RANDOM W/MICROSCOPICon BACTERIA TRACE Abnormal NONE SEEN [facility] Comment on above: Performed By: #### C BC #### [facility] [address] [place] [address] Justina Jovita Bilirubin Ql (U) Negative Normal NEGATIVE [facility] Comment on above: Performed By: #### C BC #### [facility] [address] [place] [address] Justina Jovita CAST NONE SEEN Normal NONE SEEN [facility] Comment on above: Performed By: #### C BC #### [facility] [address] [place] [address] Justina Jovita Clarity (U) SL CLOUDY Abnormal CLEAR [facility] Comment on above: Performed By: #### C BC #### [facility] [address] [place] [address] Justina Jovita Color (U) LT. YELLOW Normal YELLOW [facility] Comment on above: Performed By: #### C BC #### [facility] [address] [place] [address] Justina Jovita Crystals LM Nom (Urine sed) NONE SEEN Normal NONE SEEN [facility] Comment on above: Performed By: #### C BC #### [facility] [address] [place], [place] [address] Justina Jovita Epithelial cells LM Ql (Urine sed) FEW Abnormal NONE SEEN /RARE [facility] Comment on above: Performed By: #### C BC #### [facility] [address] [place] [address] Justina Jovita Glucose Ql (U) Negative Normal NEGATIVE [facility] Comment on above: Performed By: #### C BC #### [facility] [address] [place], [place] [address] Justina Jovita Hemoglobin Ql (U) Negative Normal NEGATIVE [facility] Comment on above: Performed By: #### C BC #### [facility] [address] [place] [address] Justina Jovita Ketones Ql (U) Negative Normal NEGATIVE [facility] Comment on above: Performed By: #### C BC #### [facility] [address] [place], [place] [address] Justina Jovita LEUKOCYTES SMALL Abnormal NEGATIVE [facility] Comment on above: Performed By: #### C BC #### [facility] [address] [place] [address] Justina Jovita MUCOUS SMALL Abnormal NONE SEEN [facility] Comment on above: Performed By: #### C BC #### [facility] [address] [place] [address] Justina Jovita Nitrite Ql (U) Negative Normal NEGATIVE [facility] Comment on above: Performed By: #### C BC #### [facility] [address] [place] [address] Justina Jovita pH (U) 6.5 [pH] Normal 5-9 [facility] Comment on above: Performed By: #### C BC #### [facility] [address] [place] [address] Justina Jovita RBC 0-2 Normal 0-[address] [facility] Comment on above: Performed By: #### C BC #### [facility] [address] [place] [address] Justina Hussein SPEC GRAVITY 1.020 Normal 1.005-<=1.025 [facility] Comment on above: Performed By: #### C BC #### [facility] [address] [place] [address] Justinajoselyn Hussein UA PROTEIN Negative Normal NEGATIVE/ TRACE [facility] Comment on above: Performed By: #### C BC #### [facility] [address] [place] [address] Justinajoselyn Hussein Urobilinogen Qn (U) 0.2 {Juan'U}/dL Normal 0.2 - 1. [address] [facility] Comment on above: Performed By: #### C BC #### [facility] [address] [place] [address] Justina Jovita WBC 5-10 Abnormal NONE SEEN [facility] Comment on above: Performed By: #### C BC #### [facility] [address] [id number] Justina Jovita CBC AUTO DIFFon 02-19-2021 BASO # 0.0 103/ul Normal 0.0-0.[address] [facility] Comment on above: Performed By: #### C BC #### [facility] [address] [id number] Justina Jovita Basophils/100 WBC (Bld) 0.6 % Normal 0.2-2.0 [facility] Comment on above: Performed By: #### C BC #### [facility] [address] [id number] Justina Jovita EO # 0.0 103/ul Normal 0.0-0.7 [facility] Comment on above: Performed By: #### C BC #### [facility] [address] [place] [address] Justina Jovita Eosinophils/100 WBC (Bld) 0.8 % Critically low 0.9-7.0 [facility] Comment on above: Performed By: #### C BC #### [facility] [address] [place], [place] [address] Justina Jovita Erythrocyte distribution width (RBC) [Ratio] 13.3 % Normal 11.0-15.[address] [facility] Comment on above: Performed By: #### C BC #### [facility] [address] [place], [place] [address] Justina Jovita Hematocrit (Bld) [Volume fraction] 37.4 % Normal 36.0-48.0 [facility] Comment on above: Performed By: #### C BC #### [facility] [address] [place], [place] [address] Jsutina Jovita Hemoglobin (Bld) [Mass/Vol] 12.7 g/dL Normal 12.0-16.0 [facility] Comment on above: Performed By: #### C BC #### [facility] [address] [place] [address] Justina Jovita IG # 0.02 10e3/ul Normal 0.00-0.03 [facility] Comment on above: Performed By: #### C BC #### [facility] [address] [place], [place] [address] Justina Jovita IG % 0.4 % Normal 0.0-0.5 [facility] Comment on above: Performed By: #### C BC #### [facility] [address] [place], [place] [address] Justina Jovita LYMPH # 0.7 103/ul Critically low 1.2-3.8 [facility] Comment on above: Performed By: #### C BC #### [facility] [address] [place], [place] [address] Justinajoselyn Hussein Lymphocytes/100 WBC (Bld) 14.1 % Critically low 20.5-60.0 [facility] Comment on above: Performed By: #### C BC #### [facility] [address] [place], [place] [address] Justinajoselyn Hussein MANUAL DIFF REQ NO Normal [facility] Comment on above: Performed By: #### C BC #### [facility] [address] [place] [address] Justina Jovita MCH (RBC) [Entitic mass] 29.1 pg Normal 26.7-34.[address] [facility] Comment on above: Performed By: #### C BC #### [facility] [address] [place], [place] [address] Justinajoselyn Chairezen MCHC (RBC) [Mass/Vol] 34.0 g/dL Normal 29.9-35.2 [facility] Comment on above: Performed By: #### C BC #### [facility] [address] [place] [address] Justina Jovita MCV (RBC) [Entitic vol] 85.6 fL Normal 81.0-99.0 [facility] Comment on above: Performed By: #### C BC #### [facility] [address] [place], [place] [address] Justina Jovita MONO # 0.4 103/ul Normal 0.3-0.8 [facility] Comment on above: Performed By: #### C BC #### [facility] [address] [place], [place] [address] Justina Jovita Monocytes/100 WBC (Bld) 7.4 % Normal 1.7-12.0 [facility] Comment on above: Performed By: #### C BC #### [facility] [address] [place], [place] [address] Justina Chairezen NEUT # 3.8 103/ul Normal 1.4-6.[address] [facility] Comment on above: Performed By: #### C BC #### [facility] [address] [place], [place] [address] Justina Hussein Neutrophils/100 WBC (Bld) 76.7 % Critically high 43.0-75.[address] [facility] Comment on above: Performed By: #### C BC #### [facility] [address] [place], [place] [address] Justina Hussein Platelet mean volume (Bld) [Entitic vol] 9.5 fL Normal 9.5-13.5 [facility] Comment on above: Performed By: #### C BC #### [facility] [address] [place] [address] Justina Jovita PLT 259 103/ul Normal 150-450 [facility] Comment on above: Performed By: #### C BC #### [facility] [address] [place] [address] Justina Jovita RBC 4.37 106/ul Normal 4.20-5.40 [facility] Comment on above: Performed By: #### C BC #### [facility] [address] [place], [place] [address] Justinajoselyn Chairezen WBC 5.0 103/ul Normal 4.0-11.0 [facility] Comment on above: Performed By: #### C BC #### [facility] [address] [place], [place] [address] Justinajoselyn Chairezen ER URINE PROFILEon 1 Bilirubin Ql (U) Negative Normal NEGATIVE [facility] Comment on above: Performed By: #### E RUR #### [facility] [address] [place], [place] [address] Justina Jovita Clarity (U) CLEAR Normal CLEAR [facility] Comment on above: Performed By: #### E RUR #### [facility] [address] [place] [address] Justina Jovita Color (U) LT. YELLOW Normal YELLOW [facility] Comment on above: Performed By: #### E RUR #### [facility] [address] [place] [address] Justina Jovita ERUAHD A micrscopic examination will be performed if indicated. Normal [facility] Comment on above: Performed By: #### E RUR #### [facility] [address] [place] [address] Justina Jovita Glucose Ql (U) Negative Normal NEGATIVE [facility] Comment on above: Performed By: #### E RUR #### [facility] [address] [place] [address] Justina Jovita Hemoglobin Ql (U) Negative Normal NEGATIVE [facility] Comment on above: Performed By: #### E RUR #### [facility] [address] [place] [address] Justina Jovita Ketones Ql (U) TRACE Abnormal NEGATIVE [facility] Comment on above: Performed By: #### E RUR #### [facility] [address] [place] [address] Justina Jovita LEUKOCYTES Negative Normal NEGATIVE [facility] Comment on above: Performed By: #### E RUR #### [facility] [address] [place] [address] Justina Jovita Nitrite Ql (U) Negative Normal NEGATIVE [facility] Comment on above: Performed By: #### E RUR #### [facility] [address] [place] [address] Justina Jovita pH (U) 5.0 [pH] Normal 5-9 [facility] Comment on above: Performed By: #### E RUR #### [facility] [address] [place] [address] Justina Jovita SPEC GRAVITY >=1.030 Abnormal 1.005-<=1.025 [facility] Comment on above: Performed By: #### E RUR #### [facility] [address] [place] [address] Justina Hussein UA PROTEIN Negative Normal NEGATIVE/ TRACE [facility] Comment on above: Performed By: #### E RUR #### [facility] [address] [place] [address] Justina Jovita UR MICRO IND NOT INDICATED Normal [facility] Comment on above: Performed By: #### E RUR #### [facility] [address] [place], [place] [address] Justina Hussein Urobilinogen Qn (U) 0.2 {Juan'U}/dL Normal 0.2 - 1. [address] [facility] Comment on above: Performed By: #### E RUR #### [facility] [address] [place] [address] Justina Hussein PROF CHEM 8 (BAS METB)on Anion gap [Moles/Vol] 15.2 mmol/L Normal [facility] Comment on above: Performed By: #### B MP #### [facility] [address] [place] [address] Justina Jovita Calcium [Mass/Vol] 9.3 mg/dL Normal 8.4-10.2 [facility] Comment on above: Performed By: #### B MP #### [facility] [address] [place] [address] Justina Jovita Chloride [Moles/Vol] 102 mmol/L Normal 98-107 [facility] Comment on above: Performed By: #### B MP #### [facility] [address] [place] [address] Justina Jovita CO2 [Moles/Vol] 28.5 mmol/L Normal 22.0-30.0 [facility] Comment on above: Performed By: #### B MP #### [facility] [address] [place] [address] Justina Jovita Creatinine [Mass/Vol] 1.35 mg/dL Critically high 0.52-1.[address] [facility] Comment on above: Performed By: #### B MP #### [facility] [address] [place] [address] Justina Jovita EGFR-AF LITHUANIAN 46 mL/min/1.73m2 Critically low >=[address] [facility] Comment on above: Performed By: #### B MP #### [facility] [address] [place], [place] [address] Justina Jovita EGFR-NON AF LITHUANIAN 38 mL/min/1.73m2 Critically low >=[address] [facility] Comment on above: Performed By: #### B MP #### [facility] [address] [place], [place] [address] Justina Jovita Glucose [Mass/Vol] 121 mg/dL Critically high 74-106 [facility] Comment on above: Performed By: #### B MP #### [facility] [address] [place], [place] [address] Justina Jovita Potassium [Moles/Vol] 3.7 mmol/L Normal 3.4-5.[address] [facility] Comment on above: Performed By: #### B MP #### [facility] [address] [place] [address] Justina Jovita Sodium [Moles/Vol] 142 mmol/L Normal 137-145 [facility] Comment on above: Performed By: #### B MP #### [facility] [address] [place], [place] [address] Justina Jovita Urea nitrogen [Mass/Vol] 12.0 mg/dL Normal 7.0-17.[address] [facility] Comment on above: Performed By: #### B MP #### [facility] [address] [place], [place] [address] Justina Jovita Urea nitrogen/Creatinine [Mass ratio] 8.9 mg/mg Normal [facility] Comment on above: Performed By: #### B MP #### [facility] [address] [place], [place] [address] Justina Jovita CBC AUTO DIFFon 02-16-2021 BASO # 0.0 103/ul Normal 0.0-0.[address] [facility] Comment on above: Performed By: #### C BC #### [facility] [address] [place], [place] [address] Justina Jovita Basophils/100 WBC (Bld) 0.6 % Normal 0.2-2.[address] [facility] Comment on above: Performed By: #### C BC #### [facility] [address] [place] [address] Justina Jovita EO # 0.1 103/ul Normal 0.0-0.[address] [facility] Comment on above: Performed By: #### C BC #### [facility] [address] [place], [place] [address] Justina Jovita Eosinophils/100 WBC (Bld) 1.8 % Normal 0.9-7.[address] [facility] Comment on above: Performed By: #### C BC #### [facility] [address] [place] [address] Justina Jovita Erythrocyte distribution width (RBC) [Ratio] 13.3 % Normal 11.0-15.[address] [facility] Comment on above: Performed By: #### C BC #### [facility] [address] [place] [address] Justina Jovita Hematocrit (Bld) [Volume fraction] 37.7 % Normal 36.0-48.[address] [facility] Comment on above: Performed By: #### C BC #### [facility] [address] [place] [address] Justina Jovita Hemoglobin (Bld) [Mass/Vol] 13.0 g/dL Normal 12.0-16.[address] [facility] Comment on above: Performed By: #### C BC #### [facility] [address] [place] [address] Justina Jovita IG # 0.02 10e3/ul Normal 0.00-0.[address] [facility] Comment on above: Performed By: #### C BC #### [facility] [address] [place] [address] Justina Jovita IG % 0.3 % Normal 0.0-0.5 [facility] Comment on above: Performed By: #### C BC #### [facility] [address] [place] [address] Justina Jovita LYMPH # 1.5 103/ul Normal 1.2-3.8 [facility] Comment on above: Performed By: #### C BC #### [facility] [address] [place] [address] Justina Jovita Lymphocytes/100 WBC (Bld) 23.4 % Normal 20.5-60.[address] [facility] Comment on above: Performed By: #### C BC #### [facility] [address] [place] [address] Justina Jovita MANUAL DIFF REQ NO Normal [facility] Comment on above: Performed By: #### C BC #### [facility] [address] [place], [place] [address] Justina Jovita MCH (RBC) [Entitic mass] 29.5 pg Normal 26.7-34.0 [facility] Comment on above: Performed By: #### C BC #### [facility] [address] [place], [place] [address] Justina Jovita MCHC (RBC) [Mass/Vol] 34.5 g/dL Normal 29.9-35.2 [facility] Comment on above: Performed By: #### C BC #### [facility] [address] [place], [place] [address] Justina Jovita MCV (RBC) [Entitic vol] 85.5 fL Normal 81.0-99.0 [facility] Comment on above: Performed By: #### C BC #### [facility] [address] [place], [place] [address] Justina Jovita MONO # 0.7 103/ul Normal 0.3-0.8 [facility] Comment on above: Performed By: #### C BC #### [facility] [address] [place], [place] [address] Justina Jovita Monocytes/100 WBC (Bld) 10.3 % Normal 1.7-12.0 [facility] Comment on above: Performed By: #### C BC #### [facility] [address] [place], [place] [address] Justina Jovita NEUT # 4.2 103/ul Normal 1.4-6.5 [facility] Comment on above: Performed By: #### C BC #### [facility] [address] [id number] Justina Hussein Neutrophils/100 WBC (Bld) 63.6 % Normal 43.0-75.0 [facility] Comment on above: Performed By: #### C BC #### [facility] [address] [place], [place] [address] Justina Hussein Platelet mean volume (Bld) [Entitic vol] 9.9 fL Normal 9.5-13.5 [facility] Comment on above: Performed By: #### C BC #### [facility] [address] [place], [place] [address] Justina Hussein PLT 338 103/ul Normal 150-450 [facility] Comment on above: Performed By: #### C BC #### [facility] [address] [place] [address] Justina Hussein RBC 4.41 106/ul Normal 4.20-5.40 [facility] Comment on above: Performed By: #### C BC #### [facility] [address] [place], [place] [address] Justina Hussein WBC 6.6 103/ul Normal 4.0-11.0 [facility] Comment on above: Performed By: #### C BC #### [facility] [address] [place], [place] [address] Justina Hussein CT ABD/PELVIS WO CONon 02-16 [...] BRITTANI CABALLERO Date: 2021-02-16 17:59 Normal [facility] CULTURE URINEon 02-16-2021 CULTURE URINE Culture Observations: LIGHT GROWTH OF MIXED GENITAL NASIR. NO POTENTIAL PATHOGENS SEEN. Normal [facility] Comment on above: Performed By: #### C BC #### [facility] [address] [place] [address] Justina Jovita ER URINE PROFILEon 1 Bilirubin Ql (U) Negative Normal NEGATIVE [facility] Comment on above: Performed By: #### DESIREE BRITO #### [facility] [address] [place] [address] Justina Jovita Clarity (U) CLEAR Normal CLEAR [facility] Comment on above: Performed By: #### LILIANA BRITORO #### [facility] [address] [place] [address] Justina Jovita Color (U) YELLOW Normal YELLOW [facility] Comment on above: Performed By: #### DESIREE BRITO #### [facility] [address] [place], [place] [address] Justina Jovita ERUAHD A micrscopic examination will be performed if indicated. Normal [facility] Comment on above: Performed By: #### DESIREE BRITO #### [facility] [address] [place] [address] Justina Jovita Glucose Ql (U) Negative Normal NEGATIVE [facility] Comment on above: Performed By: #### DESIREE BRITO #### [facility] [address] [place] [address] Justina Jovita Hemoglobin Ql (U) Negative Normal NEGATIVE [facility] Comment on above: Performed By: #### DESIREE BRITO #### [facility] [address] [place] [address] Justina Jovita Ketones Ql (U) Negative Normal NEGATIVE [facility] Comment on above: Performed By: #### DESIREE BRITO #### [facility] [address] [place] [address] Justina Jovita LEUKOCYTES SMALL Abnormal NEGATIVE [facility] Comment on above: Performed By: #### DESIREE BRITO #### [facility] [address] [place] [address] Justina Jovita Nitrite Ql (U) Negative Normal NEGATIVE [facility] Comment on above: Performed By: #### DESIREE BRITO #### [facility] [address] [place] [address] Justina Jovita pH (U) 5.0 [pH] Normal 5-[address] [facility] Comment on above: Performed By: #### DESIREE BRITO #### [facility] [address] [place] [address] Justina Jovita SPEC GRAVITY >=1.030 Abnormal 1.005-<=1.025 [facility] [place] [facility] Comment on above: Performed By: #### DESIREE BRITO #### [facility] [address] [place] [address] Justina Jovita UA PROTEIN Negative Normal NEGATIVE/ TRACE [facility] Comment on above: Performed By: #### DESIREE BRITO #### [facility] [address] [place] [address] Justina Jovita UR MICRO IND INDICATED Normal [facility] Comment on above: Performed By: #### DESIREE BRITO #### [facility] [address] [place] [address] Justina Hussein Urobilinogen Qn (U) 0.2 {Juan'U}/dL Normal 0.2 - 1. [address] [facility] Comment on above: Performed By: #### DESIREE BRITO #### [facility] [address] [place] [address] Justina Hussein LACTATE/LACTIC ACIDon 2020 Lactate [Moles/Vol] 3.5 mmol/L Critically high 0.7-2.[address] [facility] Comment on above: Result Comment: test repeated, critical value verified Performed By: #### L ACT #### [facility] [address] [place] [address] Justina Hussein Lactate [Moles/Vol] 3.7 mmol/L Critically high 0.7-2.[address] [facility] Comment on above: Result Comment: test repeated, critical value verified Performed By: #### C BC #### [facility] [address] [place] [address] Justina Hussein LIPASEon 02-16-2021 Lipase [Catalytic activity/Vol] 173.0 U/L Normal 23.0-300.[address] [facility] Comment on above: Performed By: #### C BC #### [facility] [address] [place] [address] Justina Hussein POINT OF CARE GLUCOSEon 02-04 Glucose [Mass/Vol] 187 mg/dL Critically high 74-106 [facility] Comment on above: Performed By: #### P OCGLUC #### [facility] [address] [place] [address] Justina Hussein PROF 14(COMP METB)on 021 Albumin [Mass/Vol] 4.4 g/dL Normal 3.5-5.0 [facility] Comment on above: Performed By: #### C BC #### [facility] [address] [place] [address] Justina Hussein Albumin/Globulin [Mass ratio] 1.1 {ratio} Normal [facility] Comment on above: Performed By: #### C BC #### [facility] [address] [place], [place] [address] Justina Jovita ALP [Catalytic activity/Vol] 51 U/L Normal 38-[address] [facility] Comment on above: Performed By: #### C BC #### [facility] [address] [place], [place] [address] Justina Jovita ALT [Catalytic activity/Vol] 32 U/L Normal 9-52 [facility] Comment on above: Performed By: #### C BC #### [facility] [address] [place], [place] [address] Justina Jovita Anion gap [Moles/Vol] 14.8 mmol/L Normal [facility] Comment on above: Performed By: #### C BC #### [facility] [address] [place] [address] Justina Jovita AST [Catalytic activity/Vol] 40 U/L Critically high 14-[address] [facility] Comment on above: Performed By: #### C BC #### [facility] [address] [place] [id number] Justina Jovita Bilirubin [Mass/Vol] 0.7 mg/dL Normal 0.2-1.3 [facility] Comment on above: Performed By: #### C BC #### [facility] [address] [place] [address] Justina Jovita Calcium [Mass/Vol] 9.6 mg/dL Normal 8.4-10.2 [facility] Comment on above: Performed By: #### C BC #### [facility] [address] [place] [address] Justina Jovita Chloride [Moles/Vol] 99 mmol/L Normal 98-[address] [facility] Comment on above: Performed By: #### C BC #### [facility] [address] [place], [place] [address] Justina Jovita CO2 [Moles/Vol] 29.3 mmol/L Normal 22.0-30.0 [facility] Comment on above: Performed By: #### C BC #### [facility] [address] [place] [id number] Justina Jovita Creatinine [Mass/Vol] 1.64 mg/dL Critically high 0.52-1.[address] [facility] Comment on above: Performed By: #### C BC #### [facility] [address] [place] [id number] Justina Jovita EGFR-AF LITHUANIAN 36 mL/min/1.73m2 Critically low >=[address] [facility] Comment on above: Performed By: #### C BC #### [facility] [address] [place] [id number] Justina Jovita EGFR-NON AF LITHUANIAN 30 mL/min/1.73m2 Critically low >=[address] [facility] Comment on above: Performed By: #### C BC #### [facility] [address] [place], [place] [id number] Justina Jovita Globulin (S) [Mass/Vol] 4.0 g/dL Normal [facility] Comment on above: Performed By: #### C BC #### [facility] [address] [place], [place] [id number] Justina Jovita Glucose [Mass/Vol] 185 mg/dL Critically high 74-106 [facility] Comment on above: Performed By: #### C BC #### [facility] [address] [place], [place] [id number] Justina Jovita Potassium [Moles/Vol] 4.1 mmol/L Normal 3.4-5.[address] [facility] Comment on above: Performed By: #### C BC #### [facility] [address] [place], [place] [id number] Justina Jovita Protein [Mass/Vol] 8.4 g/dL Critically high 6.1-8.2 [facility] Comment on above: Performed By: #### C BC #### [facility] [address] [place], [place] [address] Justina Jovita Sodium [Moles/Vol] 139 mmol/L Normal 137-145 [facility] Comment on above: Performed By: #### C BC #### [facility] [address] [place], [place] [id number] Justina Jovita Urea nitrogen [Mass/Vol] 29.0 mg/dL Critically high 7.0-17.[address] [facility] Comment on above: Performed By: #### C BC #### [facility] [address] [place], [place] [id number] Justina Hussein Urea nitrogen/Creatinine [Mass ratio] 17.7 mg/mg Normal [facility] Comment on above: Performed By: #### C BC #### [facility] [address] [place], [place] [id number] Justina Hussein PROTIMEon 02-16-2021 INR Coag (PPP) [Relative time] 1.05 {INR} Normal [facility] Comment on above: Performed By: #### P TT, PT #### [facility] [address] [place] [address] Justina Hussein INR GUIDELINES SEE BELOW Normal [facility] Comment on above: Result Comment: ROSELIA RED INR: 2.0 - 3.0 CONDITIONS NOT LISTED BELOW 2.5 - 3.5 FOR PROSTHETIC HEART VALVE REPLACEMENT 2.5 - 3.5 RECURRENT THROMBOSIS Performed By: #### P TT, PT #### [facility] [address] [place] [address] Justina Hussein PT Coag (PPP) [Time] 11.4 s Normal 9.0-11.[address] [facility] Comment on above: Performed By: #### P TT, PT #### [facility] [address] [place], [place] [id number] Justina Hussein PTTon 02-16-2021 aPTT Coag (Bld) [Time] 24.1 s Normal 22.3-36.[address] [facility] Comment on above: Performed By: #### P TT, PT #### [facility] [address] [place], [place] [address] Justina Hussein TROPONIN, HIGH SENSITIVITYon 02-16-2021 HSTROP 6.2 pg/mL Normal 4.0-35.[address] [facility] Comment on above: Result Comment: CUT- OFF POINTS HAVE BEEN ESTABLISHED BASED ON THE FOURTH UNIVERSAL DEFINITIONS OF MYOCARDIAL INFARCTION. THE UPPER REFERENCE LIMIT (URL) OF TROPONIN, DEFINED THE 99TH PERCENTILE OF cTnI DISTRIBUTION IN A REFERENCE POPULATION, HAS BEEN CONFIRMED THE DECISION THRESHOLD FOR CO DIAGNOSIS. Performed By: #### C BC #### [facility] [address] [place], [place] [address] Justina Jovita URINE MICROSCOPIC ONLYon BACTERIA TRACE Abnormal NONE SEEN [facility] Comment on above: Performed By: #### Stalin CROSS UMICRO #### [facility] [address] [place], [place] [id number] Justina Jovita Bacteria identified Cx Nom (U) INDICATED Normal [facility] Comment on above: Performed By: #### Stalin CROSS UMICRO #### [facility] [address] [place], [place] [id number] Justina Jovita CAST SEEN Abnormal NONE SEEN [facility] Comment on above: Performed By: #### Stalin CROSS UMICRO #### [facility] [address] [place] [address] Justina Jovita Crystals LM Nom (Urine sed) NONE SEEN Normal NONE SEEN [facility] Comment on above: Performed By: #### Stalin CROSS UMICRO #### [facility] [address] [place] [address] Justina Jovita Epithelial cells LM Ql (Urine sed) FEW Abnormal NONE SEEN /RARE [facility] Comment on above: Performed By: #### JERALD BRITOICRO #### [facility] [address] [place] [address] Justina Jovita MUCOUS NONE SEEN Normal NONE SEEN [facility] Comment on above: Performed By: #### LILIANA BRITORO #### [facility] [address] [place] [address] Justina Jovita RBC 2-5 Abnormal 0-2 [facility] Comment on above: Performed By: #### LILIANA BRITORO #### [facility] [address] [place], [place] [address] Justina Jovita WBC 20-50 Abnormal NONE SEEN [facility] Comment on above: Performed By: #### LILIANA BRITORO #### [facility] [address] [place], [place] [address] Justina Jovita XR CHEST 2 Von 02-16-2021 XR CHEST 2 V EXAM: XR CHEST 2 V HISTORY: NAUSEA WITH VOMITING, UNSPECIFIED COMPARISON: None. TECHNIQUE: PA and lateral views FINDINGS: Lungs are clear. Cardiac silhouette is normal. No pleural effusion or pneumothorax. Degenerative changes both shoulders. No acute osseous findings. IMPRESSION: No acute process. Electronically authenticated by: TEJAS LAURA Date: 2021-02-16 17:[address] [facility] Vital Signs Date Time Vital Sign Value Performing Clinician Facility 10-10-2024 13:10-0500 Body height 163.8 cm Chloe Colmenares DEPUTY CORONER INVESTIGATOR Work Phone: [facility] 10-10-2024 13:10-0500 Body mass index (BMI) [Ratio] 25.92 kg/m2 Chloe Colmenares DEPUTY CORONER INVESTIGATOR Work Phone: [facility] 10-10-2024 13:10-0500 Body temperature 98.8 [degF] Chloe Colmenares DEPUTY CORONER INVESTIGATOR Work Phone: [facility] 10-10-2024 13:10-0500 Body weight 69.58 kg Chloe Yaoz DEPUTY CORONER INVESTIGATOR Work Phone: [facility] 10-10-2024 13:10-0500 Diastolic blood pressure 82 mm[Hg] Chloe Colmenares DEPUTY CORONER INVESTIGATOR Work Phone: [facility] 10-10-2024 13:10-0500 Heart rate 93 /min Chloe Yaoz DEPUTY CORONER INVESTIGATOR Work Phone: [facility] 10-10-2024 13:10-0500 Respiratory rate 18 /min Chloe Yaoz DEPUTY CORONER INVESTIGATOR Work Phone: [facility] 10-10-2024 13:10-0500 SaO2% (BldA) [Mass fraction] 99 % Chloe Yaoz DEPUTY CORONER INVESTIGATOR Work Phone: [facility] 10-10-2024 13:10-0500 Systolic blood pressure 138 mm[Hg] Chloe Yoaz DEPUTY CORONER INVESTIGATOR Work Phone: [facility] 07-04-2024 13:32-0400 Body height 163.8 cm Chloe Aichholz DEPUTY CORONER INVESTIGATOR Work Phone: [facility] 07-04-2024 13:32-0400 Body mass index (BMI) [Ratio] 25.25 kg/m2 Chloe Colmenares DEPUTY CORONER INVESTIGATOR Work Phone: [facility] 07-04-2024 13:32-0400 Body temperature 98.29 [degF] Chloe Colmenares DEPUTY CORONER INVESTIGATOR Work Phone: [facility] 07-04-2024 13:32-0400 Body weight 67.77 kg Chloe Colmenares DEPUTY CORONER INVESTIGATOR Work Phone: [facility] 07-04-2024 13:32-0400 Diastolic blood pressure 76 mm[Hg] Chloe Colmenares DEPUTY CORONER INVESTIGATOR Work Phone: [facility] 07-04-2024 13:32-0400 Heart rate 101 /min Chloe Colmenares DEPUTY CORONER INVESTIGATOR Work Phone: [facility] 07-04-2024 13:32-0400 Respiratory rate 18 /min Chloe Colmenares DEPUTY CORONER INVESTIGATOR Work Phone: [facility] 07-04-2024 13:32-0400 SaO2% (BldA) [Mass fraction] 96 % Chloe Colmenares DEPUTY CORONER INVESTIGATOR Work Phone: [facility] 07-04-2024 13:32-0400 Systolic blood pressure 128 mm[Hg] Chloe Colmenares DEPUTY CORONER INVESTIGATOR Work Phone: [facility] 05-19-2024 07:57-0400 Body temperature 98.2 [degF] Tomasa Moctezuma DO Work Phone: [facility] 05-19-2024 07:57-0400 Diastolic blood pressure 65 mm[Hg] Tomasa Moctezuma DO Work Phone: [facility] 05-19-2024 07:57-0400 Heart rate 94 /min Tomasa Fariasston DO Work Phone: [facility] 05-19-2024 07:57-0400 Respiratory rate 18 /min Tomasa [facility]ctezuma DO [facility] 05-19-2024 07:57-0400 SaO2% (BldA) [Mass fraction] 99 % Tomasa Moctezuma DO Work Phone: [facility] [employer] 05-19-2024 07:57-0400 Systolic blood pressure 136 mm[Hg] Tomasa Moctezuma DO Work Phone: [facility] [employer] 05-17-2024 09:58-0400 Body height 163.8 cm Tomasa Moctezuma DO Work Phone: [facility] [employer] 05-17-2024 09:58-0400 Body mass index (BMI) [Ratio] 24 kg/m2 Tomasa Moctezuma DO Work Phone: [facility] [employer] 05-17-2024 09:58-0400 Body weight 64.41 kg Tomasa Moctezuma DO Work Phone: [facility] [employer] [facility] 04-26-2024 13:03-0400 Body height 163.8 cm Chloe Dedra DEPUTY CORONER INVESTIGATOR Work Phone: [facility] 04-26-2024 13:03-0400 Body mass index (BMI) [Ratio] 24.47 kg/m2 Chloe Najmaz DEPUTY CORONER INVESTIGATOR Work Phone: [facility] 04-26-2024 13:03-0400 Body temperature 98.29 [degF] Chloe Namjaz DEPUTY CORONER INVESTIGATOR Work Phone: [facility] 04-26-2024 13:03-0400 Body weight 65.68 kg Chloe Symonehholz DEPUTY CORONER INVESTIGATOR Work Phone: [facility] 04-26-2024 13:03-0400 Diastolic blood pressure 66 mm[Hg] Chloe Najmaz DEPUTY CORONER INVESTIGATOR Work Phone: [facility] 04-26-2024 13:03-0400 Heart rate 100 /min Chloe Najmaz DEPUTY CORONER INVESTIGATOR Work Phone: [facility] 04-26-2024 13:03-0400 Respiratory rate 18 /min Chloe Symonethomasmeghana DEPUTY CORONER INVESTIGATOR Work Phone: [facility] 04-26-2024 13:03-0400 SaO2% (BldA) [Mass fraction] 99 % Chloe Burgosmeghana DEPUTY CORONER INVESTIGATOR Work Phone: [facility] 04-26-2024 13:03-0400 Systolic blood pressure 110 mm[Hg] Chloe Burgosmeghana DEPUTY CORONER INVESTIGATOR Work Phone: [facility] 04-25-2024 11:07-0400 Body height 163.8 cm [employer] Work Phone: [facility] 04-25-2024 11:07-0400 Body mass index (BMI) [Ratio] 24.34 kg/m2 [employer] Work Phone: [facility] 04-25-2024 11:07-0400 Body weight 65.32 kg [employer] Work Phone: [facility] 04-21-2024 10:05-0400 Body height 163.8 cm Pm 1 [facility] 04-21-2024 10:05-0400 Body mass index (BMI) [Ratio] 24.34 kg/m2 Pm 1 [facility] [employer] [facility] 04-21-2024 10:05-0400 Body weight 65.32 kg Pm 1 [facility] Encounters Encounter Date Encounter Type Care Provider Facility Start: 11-21-2024 End: 11-21-2024 ambulatory CHLOE SYMONEThomasMEGHANA Not Available Start: 11-02-2024 End: 11-02-2024 Office outpatient visit 15 minutes Willard Venegas MD Work Phone: [facility] Comment on above: Seborrheic keratosis (Primary Dx); Lentigines; Herpesviral vesicular dermatitis Start: 11-02-2024 End: 11-02-2024 ambulatory WILLARD VENEGAS Not Available Start: 11-02-2024 End: 11-02-2024 Bamboo flowsheet Willard Venegas MD Work Phone: [facility] Start: 11-02-2024 End: 11-02-2024 Bamboo flowsheet Willard Venegas MD Work Phone: [facility] Start: 10-16-2024 End: 10-16-2024 Clinisync Result Encounter Chloe Colmenares DEPUTY CORONER INVESTIGATOR Work Phone: [facility] Unsolicited Start: 10-16-2024 End: 10-16-2024 Clinisync Result Encounter Chloe Colmenares DEPUTY CORONER INVESTIGATOR Work Phone: [facility] Unsolicited Start: 10-13-2024 End: 10-13-2024 Telephone encounter Chloe Colmenares DEPUTY CORONER INVESTIGATOR Work Phone: [facility] Start: 10-12-2024 End: 10-12-2024 ambulatory BRENNEN NAGEL Not Available Start: 10-12-2024 End: 10-12-2024 Bamboo flowsheet Brennen Nagel DEPUTY CORONER INVESTIGATOR Work Phone: [facility] Start: 10-12-2024 End: 10-12-2024 Bamboo flowsheet Brennen Nagel DEPUTY CORONER INVESTIGATOR Work Phone: [facility] Start: 10-12-2024 End: 10-12-2024 Office outpatient visit 15 minutes Brennen Nagel NP Work Phone: [facility] Comment on above: S/P total left hip a rthroplasty (Primary Dx); Left hip pain Start: 10-10-2024 End: 10-10-2024 Bamboo flowsheet Chloe Colmenares DEPUTY CORONER INVESTIGATOR Work Phone: [facility] Start: 10-10-2024 End: 10-10-2024 Bamboo flowsheet Chloe Colmenares DEPUTY CORONER INVESTIGATOR Work Phone: [facility] Start: 10-10-2024 End: 10-10-2024 Office outpatient visit 25 minutes Chloe Colmenares DEPUTY CORONER INVESTIGATOR Work Phone: [facility] Comment on above: Essential hypertensi on (CMS/HCC) (Primary Dx); Unspecified dementia, unspecified severity, without behavioral disturbance, psychotic disturbance, mood disturbance, and anxiety ([facility]); Type 2 diabetes mellitus with diabetic chronic kidney disease ([facility]/HCC); Chronic kidney disease, stage 3b (HCC) ([facility]); 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, without long-term current use of insulin ([facility]); Degeneration of intervertebral disc of lumbar region with discogenic back pain and lower extremity pain; 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 Comment on above: 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 pain and lower extremity pain (Primary Dx) Start: 07-10-2024 End: 07-10-2024 ambulatory Jackson Nathan MD Facility:[facility] Start: 07-04-2024 End: 07-04-2024 Bamboo flowsheet Chloe Colmenares DEPUTY CORONER INVESTIGATOR Work Phone: [facility] Start: 07-04-2024 End: 07-04-2024 Bamboo flowsheet Chloe Colmenares DEPUTY CORONER INVESTIGATOR Work Phone: [facility] Start: 07-04-2024 End: 07-04-2024 Office outpatient visit 25 minutes Chloe Colmenares NP Work Phone: [facility] Comment on above: Type 2 diabetes raina itus with diabetic chronic kidney disease ([facility]CC) (Primary Dx); Chronic kidney disease, stage 3b (HCC) ([facility]); Unspecified dementia, unspecified severity, without behavioral disturbance, psychotic disturbance, mood disturbance, and anxiety ([facility]); Degeneration of intervertebral disc of lumbar region, unspecified whether pain present; Needs flu shot Start: 07-04-2024 End: 07-04-2024 ambulatory CHLOE COLMENARES Not Available Start: 06-27-2024 End: 06-27-2024 Bamboo flowsheet Tomasa Moctezuma DO Work Phone: [facility] Start: 06-27-2024 End: 06-27-2024 Bamboo flowsheet Tomasa Moctezuma DO Work Phone: [facility] Start: 06-27-2024 End: 06-27-2024 Clinisync Result Encounter Chloe Colmenares NP Work Phone: [facility] External Department Unsolicited Start: 06-27-2024 End: 06-27-2024 ambulatory TOMASA MOCTEZUMA Not Available Start: 06-27-2024 End: 06-27-2024 Postop follow up visit related to original px Tomaas Ramosdleston DO Work Phone: [facility] Comment on above: Primary osteoarthrit is of left hip (Primary Dx); S/P total left hip arthroplasty Start: 06-09-2024 End: 06-09-2024 Refill Chloe Colmenares NP Work Phone: [facility] Comment on above: Cardiac arrhythmia d ue to premature depolarization, unspecified type Start: 06-08-2024 End: 06-08-2024 Telephone encounter Chloe Colmenares NP Work Phone: [facility] Comment on above: Med Refill Start: 05-30-2024 End: 05-30-2024 Bamboo flowsheet Tomasa Marcano Jose Elias DO Work Phone: [facility] Start: 05-30-2024 End: 05-30-2024 Bamboo flowsheet Tomasa Ramosdleston DO Work Phone: [facility] Start: 05-30-2024 End: 05-30-2024 Refill Chloe Colmenares DEPUTY CORONER INVESTIGATOR Work Phone: [facility] Comment on above: Cardiac arrhythmia d ue to premature depolarization, unspecified type; Memory impairment of gradual onset; Other hyperlipidemia (CMS/HCC); Essential hypertension (CMS/HCC) Start: 05-30-2024 End: 05-30-2024 Postop follow up visit related to original px Tomasa Moctezuma DO Work Phone: [facility] Comment on above: S/P total left hip a rthroplasty (Primary Dx) Start: 05-30-2024 End: 05-30-2024 ambulatory TOMASA MOCTEZUMA Not Available Start: 05-25-2024 End: 05-25-2024 Postop follow up visit related to original px Tomasa Moctezuma DO Work Phone: [facility] Comment on above: S/P total left hip a rthroplasty (Primary Dx) Start: 05-25-2024 End: 05-25-2024 ambulatory TOMASA MOCTEZUMA Not Available Start: 05-25-2024 ambulatory MARY Coyle A vibha Start: 05-24-2024 End: 05-24-2024 Clinical Support Mary Mckoy PT Work Phone: [facility] Comment on above: Status post left hip replacement (Primary Dx); Acute postoperative pain of left hip; Difficulty walking; Primary osteoarthritis of left hip Start: 05-23-2024 End: 05-23-2024 ambulatory MARY MCKOY Not Available Start: 05-22-2024 End: 05-22-2024 Clinical Support Mary Mckoy PT Work Phone: [facility] Comment on above: Status post left hip replacement (Primary Dx); Acute postoperative pain of left hip; Difficulty walking; Primary osteoarthritis of left hip Start: 05-20-2024 End: 05-20-2024 Clinical Support Mary Mckoy PT Work Phone: [facility] Comment on above: Status post left hip replacement (Primary Dx); Acute postoperative pain of left hip; Difficulty walking; Primary osteoarthritis of left hip Start: 05-19-2024 End: 05-19-2024 Telephone encounter Brennen Nagel DEPUTY CORONER INVESTIGATOR Work Phone: [facility] Start: 05-17-2024 End: 05-19-2024 ambulatory TOMASA Jeet JOSE ELIAS [facility] Start: 05-17-2024 End: 05-19-2024 Preprocedural examination done Tomasa Moctezuma DO Work Phone: [facility] [employer] [facility] Start: 05-17-2024 End: 05-19-2024 Subsequent hospital visit by physician Tomasa Moctezuma DO Work Phone: [facility] Comment on above: Preop examination (P rimary Dx); 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, unspecified whether emt intermediate insulin use ([facility]); Status post total hip replacement, left Start: 05-16-2024 Preprocedural examin ation done Tomasa Moctezuma DO Work Phone: [facility] [employer] [facility] Start: 05-16-2024 End: 05-16-2024 Telephone encounter Tomasa Jeet Jose Elias DO Work Phone: [facility] Start: 05-16-2024 Encounter for other [facility]procedural examination [facility] Start: 05-15-2024 End: 05-15-2024 ambulatory TOMASA MOCTEZUMA [facility] Comment on above: Primary osteoarthrit is of left hip (Primary Dx) Start: 05-01-2024 End: 05-01-2024 Refill Chloe Dedra DEPUTY CORONER INVESTIGATOR Work Phone: [facility] Comment on above: Chronic low back ankit n, unspecified back pain laterality, unspecified whether sciatica present (Primary Dx) Start: 04-28-2024 End: 04-28-2024 Refill Chloe Dedra DEPUTY CORONER INVESTIGATOR Work Phone: [facility] Comment on above: Essential hypertensi on ([facility] Start: 04-26-2024 End: 04-26-2024 Bamboo flowsheet Chloe Dedra DEPUTY CORONER INVESTIGATOR Work Phone: [facility] Start: 04-26-2024 End: 04-26-2024 Bamboo flowsheet Chloe Symonehcamilaz DEPUTY CORONER INVESTIGATOR Work Phone: [facility] Start: 04-26-2024 End: 04-26-2024 ambulatory CHLOE AICCOLTON Not Available Start: 04-26-2024 End: 04-26-2024 Office outpatient visit 25 minutes Chloe Colmenares DEPUTY CORONER INVESTIGATOR Work Phone: [facility] Comment on above: Preoperative clearan ce (Primary Dx); Type 2 diabetes mellitus with diabetic chronic kidney disease (HCC) ([facility]/HCC); Chronic kidney disease, stage 3b (HCC) ([facility]/HCC); Unspecified dementia, unspecified severity, without behavioral disturbance, psychotic disturbance, mood disturbance, and anxiety ([facility]/HCC); Essential hypertension ([facility]/HCC) Start: 04-26-2024 End: 04-26-2024 Preoperative state Chloe Colmenares DEPUTY CORONER INVESTIGATOR Work Phone: [facility] Start: 04-25-2024 End: 04-25-2024 BamGocellaheet Brennen Nagel DEPUTY CORONER INVESTIGATOR Work Phone: [facility] Start: 04-25-2024 End: 04-25-2024 [facility] Brennen Nagel DEPUTY CORONER INVESTIGATOR Work Phone: [facility] Start: 04-25-2024 End: 04-25-2024 Office outpatient visit 40 minutes Tomasa Moctezuma DO Work Phone: [facility] Comment on above: Primary osteoarthrit is of left hip (Primary Dx); Left hip pain Start: 04-25-2024 End: 04-25-2024 ambulatory BRENNEN NAGEL Not Available Start: 04-21-2024 End: 04-21-2024 ambulatory TOMASA MOCTEZUMA [facility] Start: 04-21-2024 End: 04-21-2024 Patient encounter procedure [facility] Pre-Admission Testing 1 [facility] - Pre Admit Start: 04-13-2024 End: 04-13-2024 ambulatory ENEDINA PHELPS Not Available Start: 03-23-2024 End: 03-23-2024 ambulatory TOMASA MOCTEZUMA Not Available Start: 02-29-2024 End: 02-29-2024 ambulatory CHLOE COLMENARES Not Available Start: 01-20-2024 End: 01-20-2024 ambulatory WILLARD VENEGAS Not Available Start: 11-29-2023 End: 11-29-2023 ambulatory CHLOE COLMENARES Not Available Start: 10-26-2023 Patient encounter procedure Brennen Nagel DEPUTY CORONER INVESTIGATOR Work Phone: [facility] Start: 07-15-2021 End: 07-16-2021 ambulatory DEANGELO JONES Facility:[facility]1 Start: 03-11-2021 End: 03-12-[address] YIMI INMAN Facility:[facility] Start: 02-19-2021 End: 02-19-2021 ambulatory JUAN DENISE Facility:[facility] Start: 02-16-2021 End: 02-16-2021 ambulatory MELI FREGOSO Facility:[facility] Start: 12-10-2020 End: 12-11-2020 ambulatory NONE LISTED REQUEST Facility:[facility]1 Start: 11-18-2020 End: 11-19-2020 ambulatory NONE LISTED REQUEST Facility: Procedures Date Procedure Procedure Detail Performing Clinician Start: 10-16-2024 ALL CBC WITH AUTO DIFF Chloe Colmenares DEPUTY CORONER INVESTIGATOR Work Phone: Start: 10-12-2024 Radex hip unilateral with pelvis 2-3 views Brennen Nagel DEPUTY CORONER INVESTIGATOR Work Phone: Start: 10-10-2024 Hemoglobin glycosyla john a1c Chloe Colmenares DEPUTY CORONER INVESTIGATOR Work Phone: Start: 06-27-2024 ALL BASIC METABOLIC PANEL Chloe Colmenares DEPUTY CORONER INVESTIGATOR Work Phone: Start: 06-27-2024 Radex hip unilateral with pelvis 2-3 views Tomasa Moctezuma DO Work Phone: Start: 05-17-2024 Radex hip unilateral with pelvis 2-3 views Tomasa Moctezuma DO Work Phone: Plan of Treatment Date Care Activity Detail Author Start: 11-01-2025 End: 11-01-2025 Patient encounter procedure 11/01/2025 2:15 PM EST Office Visit [facility] [address] [place] [phone] Willard Venegas MD [address] [place] [address] [facility] Start: 05-10-2025 End: 05-10-2025 Patient encounter procedure 05/10/2025 1:30 PM EDT Office Visit [facility] [address] [facility] [place] [phone] Brennen Nagel NP [address] [place], [place] [phone] [facility] Start: 04-21-2025 Adult BMI Screening Adult BMI Screening [facility] Start: 04-21-2025 Tobacco Screening Tobacco Screening [facility] Start: 03-01-2025 Urine screening for protein Diabetes: Urine Protein Screening [facility] Start: 01-22-2025 End: 01-22-2025 Patient encounter procedure 01/22/2025 11:30 AM EDT Office Visit [facility] [address] [place] [phone] Willard Venegas MD [address] [place] [address] [facility] Start: 01-07-2025 Hemoglobin A1c measurement Diabetes: Hemoglobin A1C [facility] Start: 11-21-2024 End: 11-21-2024 Patient encounter procedure 11/21/2024 1:00 PM EDT Office Visit [facility] [address] [place] [address] Chloe Colmenares NP [address] [place] [address] [facility] Start: 11-02-2024 End: 11-02-2024 Patient encounter procedure [facility] Comment on above: Arrived Start: 10-12-2024 End: 10-12-2024 Patient encounter procedure 10/12/2024 2:00 PM EST Office Visit [facility] [address] [place] [address] Brennen Nagel, DEPUTY CORONER INVESTIGATOR [address] [place], [place] [phone] [facility] Start: 10-10-2024 End: 10-10-2025 Basic metabolic 1998 panel - Serum or Plasma Basic metabolic panel Lab Routine Chronic kidney disease, stage 3b (HCC) ([facility]) Expected: 10/10/2024 (Approximate), Expires: 10/10/2025 [facility] Comment on above: Expected: 10/10/2024 (Approximate), Expi res: 10/10/2025 Start: 10-10-2024 End: 10-10-2025 CBC W Auto Differential panel - Blood CBC and differential Lab Routine Chronic kidney disease, stage 3b (HCC) ([facility]) Expected: 10/10/2024 (Approximate), Expires: 10/10/2025 [facility] Work Phone: Comment on above: Expected: 10/10/2024 (Approximate), Expi res: 10/10/2025 Start: 10-10-2024 End: 10-10-2024 Patient encounter procedure 10/10/2024 1:00 PM EST Office Visit [facility] [address] [place] [phone] Chloe Colmenares NP [address] [place] [address] [facility] Start: 08-14-2024 Hemoglobin A1c measurement Diabetes: Hemoglobin A1C [facility] Start: 08-08-2024 End: 08-08-2024 Patient encounter procedure 08/08/2024 11:00 AM EST Office Visit [facility] [address] [place] [address] [place] [phone] Brennen Nagel, RADHA [address] [place], [place] [phone] [facility] Start: 07-04-2024 End: 07-04-2024 Patient encounter procedure 07/04/2024 1:20 PM EDT Office Visit [facility] [address] [place] [address] Chloe Colmenares, RADHA [address] [place] [address] Degeneration of intervertebral disc of lumbar region, unspecified whether pain present (Primary Dx); Type 2 diabetes mellitus with diabetic chronic kidney disease (CMS/HCC); Chronic kidney disease, stage 3b (HCC) (CMS/HCC); Unspecified dementia, unspecified severity, without behavioral disturbance, psychotic disturbance, mood disturbance, and anxiety (CMS/HCC) [facility] Comment on above: Degeneration of intervertebral disc of l umbar region, unspecified whether pain present (Primary Dx); Type 2 diabetes mellitus with diabetic chronic kidney disease (CMS/HCC); Chronic kidney disease, stage 3b (HCC) (CMS/HCC); Unspecified dementia, unspecified severity, without behavioral disturbance, psychotic disturbance, mood disturbance, and anxiety (CMS/HCC) Start: 06-27-2024 End: 06-27-2024 Patient encounter procedure 06/27/2024 10:30 AM EDT Office Visit [facility] [address] [facility] [address] [place] [address] Tomasa Moctezuma DO [address] [place] [address] [facility] Start: 06-21-2024 End: 06-21-2024 Patient encounter procedure 06/21/2024 1:40 PM EDT Office Visit [facility] [address] [place] [address] Chloe Colmenares, RADHA [address] [place] [address] [facility] Start: 05-30-2024 End: 05-30-2024 Patient encounter procedure [facility] Comment on above: Arrived Start: 05-25-2024 End: 05-25-2024 Patient encounter procedure 05/25/2024 10:15 AM EDT Office Visit [facility] [address] [place] [phone] Tomasa Moctezuma, DO [address] [place] [address] [facility] Start: 05-22-2024 End: 05-22-2024 Patient encounter procedure 05/22/2024 1:20 PM EDT Office Visit [facility] [address] [place] [address] Chloe Colmenares NP [address] [place] [address] [facility] Start: 05-17-2024 End: 05-17-2024 Admission to same day surgery center 05/17/2024 11:45 AM EDT - 05/17/2024 3:15 PM EDT Surgery [facility] - Surgery [address] [facility] [place] [phone] Tomasa Moctezuma, DO [address] [facility] [address] [place] [address] REPLACEMENT TOTAL JOINT HIP ANTERIOR SUPINE INTERMUSCULAR [59055 (CPT )] [facility] - Surgery Comment on above: REPLACEMENT TOTAL JOINT HIP ANTERIOR SUP INE INTERMUSCULAR [91449 (CPT )] Start: 05-17-2024 End: 05-17-2024 Arthrp acetblr/prox fem prostc agrft/algrft REPLACEMENT TOTAL JOINT HIP ANTERIOR SUPINE INTERMUSCULAR Degenerative Joint Disease Left Hip 05/17/2024 11:45 AM EDT [facility] Start: 05-17-2024 Subsequent hospital visit by physician 05/17/2024 11:45 AM EDT Hospital Encounter [facility] - Surgery [address] [place] [address] Tomasa Moctezuma, DO [address] [place] [address] [facility] Surgery Start: 05-17-2024 End: 05-17-2024 Patient encounter procedure 05/17/2024 8:30 AM EDT Procedure Visit [facility] Tomasa Moctezuma, DO [address] [place] [address] [facility] Start: 05-16-2024 End: 05-16-2024 Patient encounter procedure 05/16/2024 11:15 AM EDT Office Visit [facility] [address] [place] [address] Tomasa Moctezuma, DO [address] [place] [address] [facility] Start: 05-07-2024 Influenza vaccination [facility] Start: 04-26-2024 End: 04-26-2026 Echocardiogram 2D complete Echocardiogram 2D complete Echocardiography STAT Type 2 diabetes mellitus with diabetic chronic kidney disease (HCC) ([facility]/HCC) Chronic kidney disease, stage 3b (HCC) ([facility]/HCC) Preoperative clearance Expected: 04/26/2024 (Approximate), Expires: 04/26/2026 [facility] Work Phone: Comment on above: Expected: 04/26/2024 (Approximate), Expi res: 04/26/2026 Start: 04-26-2024 End: 04-26-2024 Patient encounter procedure 04/26/2024 1:00 PM EDT Office Visit [facility] [address] [place] [phone] Chloe Colmenares NP [address] [place] [address] [facility] Start: 04-25-2024 End: 04-25-2024 Patient encounter procedure 04/25/2024 11:00 AM EDT Office Visit [facility] [address] [place] [address] Brennen Nagel, RADHA [address] [place] [address] Primary osteoarthritis of left hip (Primary Dx); Left hip pain [facility] Comment on above: Primary osteoarthritis of left hip (Prim richard Dx); Left hip pain Start: 10-22-2023 Hemoglobin A1c measurement Diabetes: Hemoglobin A1C [facility] Start: 10-19-2023 COVID-19 Vaccine ( season) COVID-19 Vaccine ( season) [facility] Start: 12-18-2003 Fall Risk Screening Fall Risk Screening [facility] Start: 1988 Administration of varicella zoster vaccine Zoster (Shingles) Vaccine (1 of 2) [facility] Start: 1957 DTaP,Tdap and Td Vaccines (1 - Tdap) DTaP,Tdap and Td Vaccines (1 - Tdap) [facility] Start: 1950 Depression Screening Depression Screening [facility] Start: 1948 Glaucoma screening Diabetes: Retinopathy Screening [facility] Start: 1938 Medicare Annual Wellness Visit Medicare Annual Wellness Visit [facility] Immunizations Immunization Date Immunization Notes Care Provider Fa cility 07-04-2024 Seasonal trivalent influenza vaccine, adjuvanted, preservative free Chloe Colmenares DEPUTY CORONER INVESTIGATOR Work Phone: [facility] 01-06-2024 Pneumococcal Conjuga te PCV 20 Brennen Nagel NP Work Phone: [facility] 06-18-2023 Influenza, Seasonal, Quadrivalent, Adjuvanted Brennen Nagel NP Work Phone: [facility] 06-18-2023 influenza virus vacc ine, unspecified formulation Brennen Nagel NP Work Phone: [facility] 07-02-2022 Influenza, Seasonal, Quadrivalent, Adjuvanted Brennen Nagel NP Work Phone: [facility] 06-13-2019 influenza, injectabl e, quadrivalent, preservative free Brennen Nagel NP Work Phone: [facility] 02-07-2018 pneumococcal polysaccharide vaccine, 23 valent Brennen Nagel DEPUTY CORONER INVESTIGATOR Work Phone: [facility] Payers Date Payer Category Payer Medicare [id number] 2023 Medicare (Managed Care) [employer] M [employer]IC[employer] ADVANTAGE Member Subscriber Plan / Payer (Effective 2023-Present) Name: Sandra Franklin Relation to Subscriber: Self Name: Sandra Franklin Payer ID: [id number] (NAIC) Type: Not on file Address: [place] [id number] 2023 Private Health Insurance 2022 Medicare [id number] 1959 Medicare [id number] 1959 Self-pay [id number] 1959 Unknown [id number] 1938 Unknown [id number] 2..840.1.539830.3.579.2 .593 1938 Unknown [id number] 2.16.840.1.448511.3.579.2 .593 1938 Unknown [id number] 2.16.840.1.919915.3.579.2 .593 1938 Unknown [id number] 2.16.840.1.736619.3.579.2 .1286 1938 Unknown [id number] 2.16.840.1.847797.3.579.2 .1286 1938 Unknown [id number] 2.16.840.1.501383.3.579.2 .1286 1938 Unknown [id number] 2.16.840.1.785219.3.579.2 .128 1938 Unknown [id number] 2.16.840.1.528387.3.579.2 .128 1938 Unknown [id number] 2.16.840.1.790568.3.579.2 .196 1938 Unknown [id number] 2.16.840.1.834642.3.579.2 .125 1938 Unknown [id number] 2.16.840.1.697897.3.579.2 .1258 1938 Unknown [id number] 2.16.840.1.927836.3.579.2 .1258 1938 Unknown [id number] 2.16.840.1.664265.3.579.2 .1258 1938 Unknown [id number] 2.16.840.1.071842.3.579.2 .1258 1938 Unknown [id number] 2.16.840.1.439481.3.579.2 .1258 1938 Unknown [id number] 2.16.840.1.115089.3.579.2 .1258 1938 Unknown [id number] 2.16.840.1.886069.3.579.2 .1258 1938 Unknown [id number] 2.16.840.1.204172.3.579.2 .1258 1938 Unknown [id number] 2.16.840.1.264673.3.579.2 .1258 1938 Unknown [id number] 2.16.840.1.159863.3.579.2 .1258 1938 Unknown [id number] 2.16.840.1.343063.3.579.2 .1258 1938 Unknown [id number] 2.16.840.1.344504.3.579.2 .1258 1938 Unknown [id number] 2.16.840.1.359262.3.579.2 .1258 1938 Unknown [id number] 2.16.840.1.968976.3.579.2 .1258 1938 Unknown [id number] 2.16.840.1.509247.3.579.2 .1258 1938 Unknown [id number] 2.16.840.1.461863.3.579.2 .1258 1938 Unknown [id number] 2.16.840.1.079388.3.579.2 .1258 1938 Unknown [id number] 2.16.840.1.556347.3.579.2 .1258 1938 Unknown [id number] 2.16.840.1.491619.3.579.2 .1258 1938 Unknown [id number] 2.16.840.1.913378.3.579.2 .1259 Unknown [id number] 2.16.840.1.290866.3.579.2 .593 Unknown [id number] 2.16.840.1.543296.3.579.2 .593 Unknown [id number] 2.16.840.1.322862.3.579.2 .593 Social History Date Type Detail Facility Start: 03-28-2020 End: 04-23-2023 Tobacco smoking status VAIS Never smoked tobacco [facility] Start: 03-28-2020 End: 04-23-2023 Tobacco use and exposure Smokeless tobacco non-user [facility] Start: 05-23-2024 End: 11-02-2024 Alcoholic beverage intake Lifetime non-drinker (finding) [facility] Start: 10-26-2023 End: 11-02-2024 History of Social function [facility] Start: 10-26-2023 End: 11-02-2024 Humiliation, Afraid, Rape, and Kick questionnaire [HARK] [...] Sex assigned at Not on file [facility] Start: 04-21-2024 End: 05-17-2024 Alcoholic beverage intake Current drinker of alcohol (finding) [facility] How often to you hav e a drink containing alcohol? Monthly or less [facility] How many standard dr inks containing alcohol do you have on a typical day? 1 or 2 [facility] Do you feel stress - tense, restless, nervous, or anxious, or unable to sleep at night because your mind is troubled all the time - these days [OSQ] To some extent [facility] Start: 03-28-2020 Alcohol Comment rare [facility] Medical Equipment Procedure Code Equipment Code Equipment Origin al Text Equipment Identifier Dates Linr Actb 52mm 3 6mm Altrx Hip - Sna - [id number] Start: 04-25-2020 Cup Actb 52mm Pn cl Sect Hip - Sna - [id number] Start: 04-25-2020 Stm Fem 150mm 12 mm Crl Amt Ti - Sna - [id number] Start: 04-25-2020 Hd Fem 36mm -2mm 08/19 Tpr - Sna - [id number] Start: 04-25-2020 Elmntr Hl Drlc P ncl Hip Mrthn - Sna - [id number] Start: 04-25-2020 Gabe-09/07/2005 296674_[facility] Start: 09-07-2005 Scr Hip Canc Cnn Gription 15mm - Sna - [id number] 296584_[facility] Start: 04-25-2020 Scr Hip Canc Cnn Gription 30mm - Sna - [id number] 296586_[facility] Start: 04-25-2020 Cup Actb 54mm Pn cl Sect Hip - Sna - [id number] ()[id number](1 7)[id number]( 21)NATALYA 682364_[facility] FDA Start: 05-17-2024 Liner Actb 54mm 36mm Ntrl Altrx - Sna - [id number] ()[id number](1 7)[id number](10)[id number](2 1)NATALYA 682374_[facility] FDA Start: 05-17-2024 Stem Fem 150mm 1 2mm Crl Amt Ti - Sna - [id number] ()[id number](1 7)[id number])[id number]( 21)NATALYA 682378_[facility] FDA Start: 05-17-2024 Head Fem 36mm +1 .5mm 08/19 - Sna - [id number] ()[id number](1 7)[id number](10)[id number] 6(21)NATALYA 682379_[facility] FDA Start: 05-17-2024 Elminator Hl Drl c Pncl Hip Mrthn - Sna - [id number] ()[id number](1 7)[id number](10)[id number] 7(21)NATALYA 682373_[facility] FDA Start: 05-17-2024 Screw Hip Canc C nn Gription 30mm - Sna - [id number] ()[id number](1 7)[id number](10)[id number] 8(21)NATALYA 682365_[facility] FDA Start: 05-17-2024 Screw Hip Canc C nn Gription 30mm - Sna - [id number] ()[id number](1 7)[id number](10)[id number] 9(21)NATALYA 682370_[facility] FDA Start: 05-17-2024 Goals Date Patient Goal Desired Activity /State Personal health goal Comment on above: Formatting of this n ote might be different from the original. Evaluation of progress towards goal: Safe dc transition from hospital to home with family support and [facility] Clinical Notes 04-21-2024 to 11-02-2024 Willard Venegas MD - 11/02/2024 2:30 PM ESTTelephone Encounter - Chloe Colmenares NP - 10/13/2024 8:09 AM ESTTelephone Encounter - Chloe Colmenares NP - 10/13/2024 8:09 AM ESTPatient Instructions Note Date & Type Note Facility 11-02-2024 History of Presen t illness Narrative Skin Check Location: Patient requests a full body skin examination Dermatologic history: history of Actinic Keratosis, history of Squamous Cell Carcinoma Last visit: 1 year ago Established patient Lesions: Location: Chest/upper extremities Duration: few months Quality: denies pain, denies itch, denies bleeding Modifying factors: aggravated by picking Associated symptoms: rough, scaly Treatments: none All pertinent medical history, medications, and allergies were reviewed. General Exam: alert, oriented to person, place, and time, normal affect, well appearing uses a walker Unaccompanied Scalp, Examined Right leg Examined Head, Face Examined Left leg Examined Neck Examined Right foot Examined Chest Examined Left foot Examined Back Examined Buttocks Examined Abdomen Examined Digits,nails: Examined Right arm Examined Left arm Examined Lymphatics: Not examined Hands Examined 1. Seborrheic keratosis (2) Chest (Upper Torso, Anterior), Head - Anterior (Face) Stuck on verrucous, atkins-brown papules and plaques. Patient was counseled regarding these benign growths. Removal is normally not necessary, but they may be removed if they are symptomatic or for cosmetic reasons. Start Ammonium lactate lotion daily. Related Medications ammonium lactate (Lac-Hydrin) 12 % lotion Apply to affected areas on body daily. 2. Lentigines (2) Chest (Upper Torso, Anterior), Head - Anterior (Face) Scattered atkins macules in sun-exposed areas. The patient was informed that lentigines are benign pigmented lesions that occur on sun-exposed and sun-damaged skin. No treatment is necessary. Recommended regular use of broad spectrum sunscreen SPF 30 or higher 3. Herpesviral vesicular dermatitis Mid Lower Vermilion Lip Resolving Offered treatment today, patient declined. Next Visit: 1 year documented in this encounter [facility] 10-13-2024 Telephone encounter Note Contact pt, I have reviewed her notes from ortho. Is she ok with me reaching out to Pain Mgmt to see about where theyare are at with getting MRI and send her back there?? [place] [facility] 10-13-2024 Miscellaneous Notes Contact pt, I have reviewed her notes from ortho. Is she ok with me reaching out to Pain Mgmt to see about where theyare are at with getting MRI and send her back there?? [place] documented in this encounter [facility] 10-12-2024 History of Presen t illness Narrative Images from the original note were not included. HISTORY OF PRESENT ILLNESS: EST PT Sandra Franklin is an 83 y.o. @ female. EST [...] Unremarkable left total hip arthroplasty. Brennen Nagel CUSTOM SHOEMAKER-MANAGER VALIDATION Procedures Orders Placed This Encounter Procedures XR [...] requiring urgent evaluation. documented in this encounter [facility] 10-10-2024 History of Presen t illness Narrative Associated Problem(s): DDD (degenerative disc disease), lumbar Cont tramadol, OARRS reviewed At last appt she was referred to pain mgmt at [facility], she was seen it was recommended [...] the original note were not included. Sandra Franklin is a 83 y.o. female presents with [...] post-menopausal. Current diabetic treatment includes diet. An LARY inhibitor/angiotensin II receptor abel is being taken. She does not see a shuttle threader.Eye exam is not current. Hypertension This is [...] History: Diagnosis Date Actinic keratosis Acute glaucoma ([facility]) 10/26/2023 Allergic rhinitis 10/26/2023 Arthritis 10/26/2023 Cancer ([facility]) 10/26/2023 Chronic low back pain, unspecified back pain laterality, unspecified whether sciatica present 10/26/2023 DDD (degenerative disc disease), lumbar 10/26/2023 Hemorrhoids 10/26/2023 Night cramps Squamous cell skin cancer Past Surgical History: Procedure Laterality Date CHOLECYSTECTOMY DILATION AND CURETTAGE HEMORRHOIDECTOMY LAMINECTOMY 2006 NEUROMA SURGERY Right removal of neuroma foot OTHER SURGICAL HISTORY squamous cell carcinoma removed form face NC TOTAL HIP ARTHROPLASTY Right 04/25/2020 TONSILLECTOMY TOTAL [...] List Items Addressed This Visit Essential hypertension ([facility]) - Primary Please check blood pressure daily [...] capsule 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 ([facility] [facility] Check blood sugars daily, notify if <70 [...] (Hb A1C) docked device (Completed) Other hyperlipidemia (CMS/HCC) Relevant Medications simvastatin (Zocor) 10 MG tablet DDD (degenerative disc disease), lumbar Cont tramadol, OARRS reviewed Chronic kidney disease, stage 3b (HCC) ([facility]) Continue with monitoring labs prn Relevant Orders CBC and differential Basic metabolic panel Memory impairment of gradual onset Relevant Medications donepezil (Aricept) 5 MG tablet Type 2 diabetes mellitus with diabetic chronic kidney disease ([facility]) Unspecified dementia, unspecified severity, without behavioral disturbance, psychotic disturbance, mood disturbance, and anxiety ([facility]) Currently taking aricept, lives on her own, continues to drive, cooking and paying bills Associated Problem(s): 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 ([facility]) Check blood sugars daily, notify if <70 [...] Problem(s): Chronic kidney disease, stage 3b (HCC) ([facility]) Continue with monitoring labs prn Associated Problem(s): Essential hypertension ([facility]) Please check blood pressure daily and record [...] and paying bills documented in this encounter [facility] 10-10-2024 Instructions Chloe Colmenares NP - 10/10/2024 1:00 PM EST Get labs check Follow up in 3 months documented in this encounter [facility] 07-04-2024 History of Presen t illness Narrative Associated Problem(s): DDD (degenerative disc disease), lumbar Cont tramadol, OARRS reviewed Referr to Pain mgmt Images from the original note were not included. Sandra Frnaklin is a 83 y.o. female presents with [...] History: Diagnosis Date Actinic keratosis Acute glaucoma ([facility]) 10/26/2023 Allergic rhinitis 10/26/2023 Arthritis 10/26/2023 Cancer ([facility]) 10/26/2023 Chronic low back pain, unspecified back pain laterality, unspecified whether sciatica present 10/26/2023 DDD (degenerative disc disease), lumbar 10/26/2023 Hemorrhoids 10/26/2023 Night cramps Squamous cell skin cancer Past Surgical History: Procedure Laterality Date CHOLECYSTECTOMY DILATION AND CURETTAGE HEMORRHOIDECTOMY LAMINECTOMY 2006 NEUROMA SURGERY Right removal of neuroma foot OTHER SURGICAL HISTORY squamous cell carcinoma removed form face NC TOTAL HIP ARTHROPLASTY Right 04/25/2020 TONSILLECTOMY TOTAL [...] Medicine Chronic kidney disease, stage 3b (HCC) (CMS/HCC) Continue with monitoring labs prn Type 2 diabetes mellitus with diabetic chronic kidney disease (CMS/HCC) - Primary Remains off meds, d/t renal function, most current A1c test is 5.2% on 05/15/24 and that is without any diabetic meds Unspecified dementia, unspecified severity, without behavioral disturbance, psychotic disturbance, mood disturbance, and anxiety (CMS/HCC) Currently taking aricept, lives on her own, continues to drive, cooking and paying bills Needs flu shot Relevant Orders Flu vaccine, trivalent, adjuvanted, PF ([id number]) (Fluad trivalent single dose syringe) Associated Problem(s): Type 2 diabetes mellitus with diabetic chronic kidney disease (CMS/HCC) Remains off meds, d/t renal function, most [...] and paying bills documented in this encounter [facility] 07-04-2024 Instructions Chloe Colmenares NP - 07/04/2024 1:20 PM EDT Pain Management [facility], they should be calling you, if no response by 07/16/24 call me back documented in this encounter [facility] 06-27-2024 History of Presen t illness Narrative HISTORY OF PRESENT ILLNESS: Sandra Franklin is an 83 y.o. @ female. Follow [...] History: Diagnosis Date Actinic keratosis Acute glaucoma ([facility]) 10/26/2023 Allergic rhinitis 10/26/2023 Arthritis 10/26/2023 Cancer ([facility]) 10/26/2023 Chronic low back pain, unspecified back [...] if she desires a referral to another export specialist we would be happy to make referral, she states she would like to continue her care here. Dr. Moctezuma obtained history and examined the patient, I am acting as scribe for Dr. Moctezuma/SILVER LUQUE D.O. documented in this encounter [facility] 06-08-2024 Telephone encounter Note PT CALLED ASKING TO GET A REFILL ON HER [facility] NEED[facility] A NEW PRESCRIPTION [facility] 06-08-2024 Miscellaneous Notes PT CALLED ASKING TO GET A REFILL ON HER [facility] NEEDS A NEW PRESCRIPTION documented in this encounter [facility] 05-30-2024 History of Presen t illness Narrative Images from the original note were not included. HISTORY OF PRESENT ILLNESS: Sandra Franklin is an 83 y.o. @ female. Follow [...] History: Diagnosis Date Actinic keratosis Acute glaucoma ([facility]) 10/26/2023 Allergic rhinitis 10/26/2023 Arthritis 10/26/2023 Cancer ([facility]) 10/26/2023 Chronic low back pain, unspecified back [...] Moctezuma/leo Moctezuma D.O. documented in this encounter [facility] 05-25-2024 History of Presen t illness Narrative Images from the original note were not included. HISTORY OF PRESENT ILLNESS: Sandra Franklin is an 83 y.o. @ female. Follow [...] History: Diagnosis Date Actinic keratosis Acute glaucoma ([facility]) 10/26/2023 Allergic rhinitis 10/26/2023 Arthritis 10/26/2023 Cancer ([facility]) 10/26/2023 Chronic low back pain, unspecified back [...] Moctezuma/leo Moctezuma D.O. documented in this encounter [facility] 05-24-2024 History of Presen t illness Narrative Physical Therapy Physical Therapy Daily Visit Patient Name: Sandra Franklin Today's Date: 05/24/2024 Subjective Current Problem: Pt [...] out: 10:25 am Total time: 25 minutes [id number] Gait training x 15 minutes [id number] TherEx x 10 minutes Pain Management: The [...] time: Heels apart = 0. Gait score: 6/12. Total Score = Balance + Gait 14/28. Tinetti tool score: < = 18 High. [...] functional transfers and bed mobility with independence. Mental Measurements Teacher Goals (4-6 weeks) Goal 1 : Patient [...] up next week. documented in this encounter [facility] 05-22-2024 History of Presen t illness Narrative Physical Therapy Physical Therapy Evaluation Patient Name: Sandra Franklin Today's Date: 05/22/2024 Subjective Current Problem: Pt [...] out: 10:25 am Total time: 25 minutes 36860 Gait training x 15 minutes [id number] TherEx x 10 minutes Pain Management: The [...] time: Heels apart = 0. Gait score: /12. Total Score = Balance + Gait 14/28. Tinetti tool score: < = 18 High. [...] functional transfers and bed mobility with independence. Mental Measurements Teacher Goals (4-6 weeks) Goal 1 : Patient [...] is very impulsive. documented in this encounter [facility] 05-20-2024 History of Presen t illness Narrative Physical Therapy Physical Therapy Evaluation Patient Name: Sandra Franklin Today's Date: 05/20/2024 Subjective Current Problem: Pt is being seen today due to having a left FISH replacement. Date of Surgery: 05-17-24 with two night stay. Current deficits: Impaired gait with dependence on an AD, impaired AROM, impaired LE strength, post op pain. Visit number 1. Time In: 12:05 pm; Time out: 12:50 pm Total time: 45 minutes 50376 Gait training x 15 minutes [id number] TherEx x 10 minutes 10849 Eval x 20 minutes. Pain Management: The [...] time: Heels apart = 0. Gait score: 6/12. Total Score = Balance + Gait 14/28. Tinetti tool score: < = 18 High. [...] functional transfers and bed mobility with independence. Group Home Goals (4-6 weeks) Goal 1 : Patient [...] return to OF documented in this encounter [facility] 05-19-2024 Telephone encounter Note Post op pain rx. PDMP reviewed. Initial rx was sent to mail pharmacy by mistake. That rx was cancelled and [facility] [place] Patient notified. [facility] 05-19-2024 Miscellaneous Notes Post op pain rx. PDMP reviewed. Initial rx was sent to mail pharmacy by mistake. That rx was cancelled and [facility] [place] Patient notified. documented in this encounter [facility] 05-19-2024 Nurse Note AVS reviewed with the patient and signed. All questions answered and concerns addressed. Meds reviewed that need to be picked up from the pharmacy and administration times. The need to go to follow up appt 9-19 reviewed. All belongings returned. IV removed. Pt transferred to w/c plus one assist. Pt wheeled to lobby for spanish moss picker by staff. Transport being provided by family to home. [facility] 05-19-2024 Nurse Note AVS reviewed with the patient and signed. All questions answered and concerns addressed. Meds reviewed that need to be picked up from the pharmacy and administration times. The need to go to follow up appt 919 reviewed. All belongings returned. IV removed. Pt transferred to w/c plus one assist. Pt wheeled to lobby for spanish moss picker by staff. Transport being provided by family to home. documented in this encounter [facility] 05-19-2024 Hospital course Narrative Orthopaedic Discharge Summary Patient ID: Sanrda Franklin [id number] 83 y.o. 1940 Admit date: 05/17/2024 Discharge date and time: 05/19/2024 Admitting Physician: Tomasa Moctezuma DO Discharge Physician: same Admission Diagnoses: Severe degenerative joint disease left hip Discharge Diagnoses: Severe degenerative joint disease left hip Torn hip abductor/gluteus medius Admission Condition: Stable Discharged Condition: Stable Indication for Admission: The patient was noted via outpatient basis to have recalcitrant pain and decreased range of motion to the operative hip with physical and diagnostic modalities consistent with severe degenerative joint disease. They exhibited an antalgic gait which was affecting balance, coordination, stability on stairs and causing pain to hip and low back. They tried nonsteroidal anti-inflammatories, cortisone injection, strength and fitness program at home without relief of symptoms. X-rays revealed severe degenerative joint disease to the operative hip with decrease joint space height noted , marginal osteophytes noted, and flattening of the articular surfaces noted. The patient requested to have a total hip arthroplasty performed because the pain was markedly affecting activities of daily living and ability to sleep. Surgical procedure: Procedure(s): REPLACEMENT TOTAL JOINT HIP (Left) - Wound Class: Clean - Incision Closure: Deep and Superficial Layers Consults: Hospitalist for medical management and management of home meds Significant Diagnostic Studies: Daily hemoglobin and hematocrit Hospital Course:See [facility] inpatient notes for specifics Patient was admitted to the hospital and underwent a left total hip arthroplasty with repair of gluteus medius on the above mentioned date. The patient progressed well throughout the hospital stay. First postoperative day patient was placed in physical therapy to gait training with a walker weightbearing as tolerated to operative lower extremity and increase strength and range of motion of the operative lower extremity. The patient was placed on Permanent hip dislocation precautions to the operative hip. Patient was placed on 6 weeks no active abduction to operative hip. Patient was placed on DVT and infection prophylaxis postoperatively. At time of discharge the patient was experiencing no difficulty with spontaneous urinations and flatus. The Patient showed excellent oral intake of fluids and solids. The Patient denied chest pain shortness of breath or orthopnea, abdominal pain or dyspepsia.. The Patient's condition on discharge was stable and the incision was stable on discharge. The patient experienced no adverse drug reactions while admitted the hospital. The patient is expected to make a full and expedient recovery and to achieve a level ambulation similar to or slightly less than that prior to admission. The Patient's operative lower extremity was neurovascularly unchanged without any sensory or motor deficits noted distal to the operative hip. The Patient's activity level on discharge is to be gait training with a walker weightbearing as tolerated to operative lower extremity. The patient was placed on DVT prophylaxis. Patient was given a follow-up appointment to see me in my office in approximately 10 days. Disposition: Stable Patient Instructions: Activity: Gait training with walker weightbearing as tolerated to left Lower extremity, Increased strength and range of motion operative hip. Diet: Regular home diet Wound Care: May shower daily and redressed the wound after shower Follow-up with Tomasa Moctezuma DO 05/25 at 10:15 Signed: MELVI PRASAD APRN-CNP 05/19/24 1200 documented in this encounter [facility] 05-19-2024 Progress note Formatting of t his note is different from the original. Occupational Therapy CANCEL - Refusal attempted OT treatment, pt reports that she is leaving this afternoon and wants to wait until closer to discharge time before she gets dressed, declines OT at this time. OT to continue to follow. [facility] Work Phone: 05-19-2024 Miscellaneous Notes Occupational Therapy CANCEL - Refusal attempted OT treatment, pt reports that she is leaving this afternoon and wants to wait until closer to discharge time before she gets dressed, declines OT at this time. OT to continue to follow. Problem: Safety Goal: Patient will be injury free during hospitalization Description: INTERVENTIONS: 1. Assess patient's risk for falls and implement fall prevention plan of care per policy 2. Provide and maintain a safe environment 3. Proper use of double Identifiers 4. Medication administration using the 5 rights 5. Hand hygiene 6. Specimens are labeled at the bedside 7. Instruct patient/ patient agency service representative about use of safety devices 8. Include patient/ patient agency service representative in decisions related to safety Outcome: Progressing Note: Evaluation of progress towards goal: Pt is free of injury, safe environment provided and maintained, medication administered as ordered, hand hygiene completed. Additional Comments: Physical Therapy Treatment Discharge Recommendations PT Recommendations: Home Home Recommendations: Intermittent caregiver support for: (ADL's and IADL's as needed.) Post Discharge Therapy Recommendations: Home Physical Therapy 6 Clicks: Basic Mobility Turning from your back to your side while in a flat bed without using bed rails?: None Moving from lying on your back to sitting on side of flat bed without using bed rails?: None Moving to and from bed to a chair (including w/c)?: A little Standing up from a chair using your arms (e.g. w/c or bedside chair)?: A little To walk in hospital room?: A little Climbing 3-5 steps with a railing?: A little Scoring 6 Clicks: Basic Mobility Raw Score: 20 CMS G Code Modifier: CJ PT Treatment/Interventions: ADL retraining, Functional transfer training, LE strengthening/ROM, Endurance training, Balance, Stair training, Gait training, Neuromuscular reeducation PT Frequency: Other (comment), 6-7days/week (1-2x/day) PT Duration: 10 days Patient Response to Treatment: Progressing toward goals Assessment Patient Assessment Therapy Problem List: Decreased ADL status, Decreased balance, Decreased endurance, Decreased gross motor, Decreased mobility, Decreased LE ROM, Decreased safe judgement during ADL, Decreased self-care trans Patient Response to Treatment: Progressing toward goals Mood/Affect: Appropriate for circumstances Rehab Prognosis: Good, With continued PT status post acute discharge Visit RN Communication: Yes Medical Record Reviewed: Yes PT Type of Visit: Treatment Precautions Activity: Early mobility: pass. Okay to tx per RN. Equipment: RW, gait belt. Weight Bearing Status: WBAT L LE Telemetry/Police Detective: No Oxygen Used: Room air. Other: S/P L FISH Pain Assessment Pain Assessment: 0-10 Pain Score: 1 Pain Type: Acute pain, Surgical pain Pain Location: Hip Pain Orientation: Left Pain Intervention(s): Repositioned, Ambulation/increased activity, Distraction Hearing / Speech / Vision Hearing: Within Functional Limits Speech: Within Functional Limits Current Vision: Wears glasses only for reading Bed Mobility Supine to Sit: Stand by assist, Left (HOB slightly elevated.) Sit to Supine: Stand by assist, Left (HOB flat.) Other: Patient performed bed mobility of supine to/from seated positions, SBA. Minimal verbal cues required of body mechanics to assist in transition ease. Transfers Sit to Stand: Standby assist Stand to Sit: Standby assist Toilet Transfers: Standby assist Other: Patient performed multiple sit to stand transfers from various surfaces, SBA. Cues often expressed of proper hand placement and AD management. Patient slightly impulsive with pushing AD away or walking away from AD with manuevering to surface to sit. Gait Base of Support: Within Functional Limits Pattern: Decreased sarah, L Decreased heel strike, L Decreased foot clearance, Forward trunk, L Decreased stance time Gait Assistance: Contact guard assist Assistive Device: Rolling walker Gait Distance: 150' x2 Limiting Factors to Gait: Weakness, Fatigue, Pain 2 Turns: Yes Stair Management Technique: Step to pattern, Forwards, Two rails Stair Management Assistance: Contact guard assist Number of Stairs: 3 x 6 stairs Other: Patient gait trained with use of RW as AD, CGA. Verbal cues expressed of step/AD sequencing and increased step length for improved gait pattern in environment. Patient displayed improved fluidity of gait as distance progressed, reduced step to gait pattern. Patient then completed stair training, B UE support with step to gait pattern. Re-iterated proper step sequencing. Balance Sitting Balance: Static: Good Sitting Balance: Dynamic: Fair (+) Standing Balance: Static: Fair Standing Balance: Dynamic: Fair (-) Other: B UE support required of AD in order to assist patient in maintaining balance during standing tasks. No increased unsteadiness occurred to cause LOB. Activity Tolerance Endurance: Tolerates <30 minutes activity WITHOUT vital sign changes Other: Brief rest breaks required secondary to increased level of fatigue and generalized weakness. Pain remained unchanged throughout therapy duration. 05/19/24 0720 FISH FISH exercises performed? No Other Hard copy provided of LE ther ex program to promote strength and mobility for ease of transfers and gait. Patient in bed surface with HOB elevated to patient comfort; Call light/tray table within reach; Communicated with RN on summary of tx and patient location. Plan Physical Therapy Care Plan Physical Therapy Care Plan (Active) Template: PT - Physical Therapy Problem: Activity Tolerance Dates: Start: 05/17/24 Disciplines: PT Goal: Tolerate 30 minutes of activity WITHOUT rest breaks Dates: Start: 05/17/24 Expected End: 05/26/24 Description: Goal Description: Disciplines: PT Outcomes Date/Time User Outcome 05/19/24 0746 Laya Cohen WHITE LEAD FILTERER Progressing 05/18/24 1317 Palak Jones, PT Progressing 05/18/24 1054 Palak Jones PT Progressing Goal note from Hospital Encounter 03/29/2024 by Palak Jones PT Evaluation of progress towards goal: tolerated increased activity Problem: Gait Dates: Start: 05/17/24 Disciplines: PT Goal: Patient will perform gait with Stand By Assist Dates: Start: 05/17/24 Expected End: 05/26/24 Description: Pt will be able to ambulate 120 ft with walker and stand by assist to safely ambulate household distances. Disciplines: PT Outcomes Date/Time User Outcome 05/19/24 0746 Laya Cohen PTA Progressing 05/18/24 1317 Palak Jones, PT Progressing 05/18/24 1054 Palak Jones PT Progressing Goal note from Hospital Encounter 03/29/2024 by Palak Jones PT Evaluation of progress towards goal: ambulated 300ft Problem: Stairs/Curb Dates: Start: 05/17/24 Disciplines: PT Goal: Patient will perform stairs/curb with Contact Guard Dates: Start: 05/17/24 Expected End: 05/26/24 Description: Patient will be able to ascend 2 steps with HR on R and CGA to safely enter household upon hospital discharge. Disciplines: PT Outcomes Date/Time User Outcome 05/19/24 0746 Laya Cohen PTA Progressing 05/18/24 1054 Palak Jones PT Progressing Goal note from Hospital Encounter 03/29/2024 by Laya Cohen PTA Completion of x3 six inch steps. Problem: Standing Balance Dates: Start: 05/17/24 Disciplines: PT Goal: Improve balance to good Dates: Start: 05/17/24 Expected End: 05/26/24 Description: To reduce risk of falls. Disciplines: PT Outcomes Date/Time User Outcome 05/19/24 0746 Laya Vona, WHITE LEAD FILTERER Progressing 05/18/24 1317 Palak Jones PT Progressing 05/18/24 1054 Palak Jones PT Progressing Goal note from Hospital Encounter 03/29/2024 by Palak Jones PT Evaluation of progress towards goal: fair Problem: Transfers Dates: Start: 05/17/24 Disciplines: PT Goal: Patient will perform transfers with Supervision Dates: Start: 05/17/24 Expected End: 05/26/24 Description: To demonstrate improved LE strength/endurance. Disciplines: PT Outcomes Date/Time User Outcome 05/19/24 0746 Laya Cohen, WHITE LEAD FILTERER Progressing 05/18/24 1317 Palak Jones PT Progressing 05/18/24 1054 Palak Jones PT Progressing Goal note from Hospital Encounter 03/29/2024 by Palak Jones PT Evaluation of progress towards goal: SBA Physical Therapy Care Plan (Resolved) There are no resolved problems. Principal Problem: Preop examination Associated attestation - Michelle Rivera PT - 05/19/2024 2:43 PM EDT I have reviewed and agree with this note and education documentation for this visit. Problem: Pain Goal: Patient goal is pain score less than 4, able to rest, and participant in treatment plan as appropriate Description: INTERVENTIONS: 1. Encourage patient or legal agency service representative to report early pain and ask for pain medicine when needed 2. Assess pain using appropriate pain scale and include the scale used when documenting 3. Administer analgesics based on type and severity of pain and evaluate response within appropriate time frame 4. Implement non-pharmacological measures as appropriate and evaluate response 5. Consider cultural and social influences on pain and pain management 6. Notify LIP if interventions ineffective or patient reports new pain 7. Monitor vital signs including pulse ox, end-tidal CO2 based on pain intervention 8. Reassess pain per policy 9. Teach patient or legal agency service representative interventions for comforting Outcome: Progressing Note: Evaluation of progress towards goal: Pt able to report pain according to 0/10 pain scale. Medicating patient for pain per orders. Problem: Safety Goal: Patient will be injury free during hospitalization Description: INTERVENTIONS: 1. Assess patient's risk for falls and implement fall prevention plan of care per policy 2. Provide and maintain a safe environment 3. Proper use of double Identifiers 4. Medication administration using the 5 rights 5. Hand hygiene 6. Specimens are labeled at the bedside 7. Instruct patient/ patient agency service representative about use of safety devices 8. Include patient/ patient agency service representative in decisions related to safety Outcome: Progressing Note: Evaluation of progress towards goal: Patient will remain free from falls. Room is clear of clutter, non- slip footwear is provided. Will continue to monitor. Problem: Infection Goal: Absence of infection during hospitalization Description: Interventions: 1. Assess and monitor for signs and symptoms of infection 2. Monitor lab/diagnostic results 3. Monitor all insertion sites i.e., indwelling lines, tubes and drains 4. Monitor endotracheal (as able) and nasal secretions for changes in amount and color 5. Administer medications as ordered 6. Instruct and encourage patient and family to use good hand hygiene technique 7. Identify and instruct patient/patient agency service representative in use of appropriate isolation precautions for identified infection/symptoms 8. Provide and discuss with patient/patient agency service representative on educational MDRO sheet 9. Encourage and monitor nutritional status daily and consult senior talent management consultant if indicated 10. Implement neutropenic guidelines as needed 11. Review exposure to history of communicable disease and recent travel history on admission 12. Encourage annual influenza vaccine 13. Encourage pneumonia vaccine Outcome: Progressing Note: Evaluation of progress towards goal: Pt shows no signs of infection. Pt afebrile. Problem: Low Risk Fall Score Description: Calderon Fall Score of 0 - 24 or indicated by [facility] Assessment Goal: Patient should be free from fall Description: Interventions: 1. [place] to environment 2. Hourly rounds addressing the 4 P's (Pain, Positioning, Possessions, Potty) 3. Clear area of hazards (spills, clutter, electrical cords, unnecessary equipment) 4. Place equipment (bed & TV controls, call light, phone, urinal) within reach 5. Encourage patient to wear glasses and hearing aides as appropriate 6. Maintain bed in lowest position 7. Lock wheels on bed/wheelchair 8. Provide adequate lighting, including night light 9. Assess need for additional bedding, food/fluids, pain med's prior to sleep/routinely 10. Provide gripper slippers or personal non-skid footwear 11. Teach patient and patient agency service representative to maintain environment for safety and engage in all aspects of fall prevention program Outcome: Progressing Note: Evaluation of progress towards goal: Patient will remain free from falls. Room is clear of clutter, non- slip footwear is provided. Will continue to monitor. Physical Therapy Treatment Discharge Recommendations PT Recommendations: Home Home Recommendations: Intermittent caregiver support for: Post Discharge Therapy Recommendations: Home Physical Therapy 6 Clicks: Basic Mobility Turning from your back to your side while in a flat bed without using bed rails?: None Moving from lying on your back to sitting on side of flat bed without using bed rails?: None Moving to and from bed to a chair (including w/c)?: A little Standing up from a chair using your arms (e.g. w/c or bedside chair)?: A little To walk in hospital room?: A little Climbing 3-5 steps with a railing?: A little Scoring 6 Clicks: Basic Mobility Raw Score: 20 CMS G Code Modifier: CJ Therapy Plan Need for skilled Physical Therapy to address deficits in functional mobility due to a status decline resulting from S/P FISH. Patient Response to Treatment: Progressing toward goals Assessment Patient Assessment Patient Response to Treatment: Progressing toward goals Visit RN Communication: Yes Medical Record Reviewed: Yes PT Type of Visit: Treatment Precautions Activity: Ok to treat per Saritha SHEPPARD Equipment: rolling walker, nonskid socks Weight Bearing Status: WBAT L LE Telemetry/Police Detective: No Other: S/P L FISH Pain Assessment Pain Assessment: 0-10 Pain Score: 2 Pain Type: Acute pain Pain Location: Hip Pain Orientation: Left Pain Intervention(s): Ambulation/increased activity Response to Interventions: Pain worsened (with activity, improved with rest) Cognition Overall Cognitive Status: Within Functional Limits Bed Mobility Supine to Sit: Stand by assist Transfers Sit to Stand: Standby assist Stand to Sit: Standby assist Gait Base of Support: Within Functional Limits Pattern: Decreased sarah, L Decreased heel strike, L Decreased foot clearance, Forward trunk, L Decreased stance time Gait Assistance: Contact guard assist Assistive Device: Rolling walker Gait Distance: 300ft Limiting Factors to Gait: Weakness, Fatigue, Pain 2 Turns: Yes Stair Management Technique: Step to pattern, Forwards, One rail R up Stair Management Assistance: Contact guard assist, Verbal cues Number of Stairs: 3 x 6 stairs Balance Sitting Balance: Static: Good Sitting Balance: Dynamic: Good Standing Balance: Static: Fair Standing Balance: Dynamic: Fair Activity Tolerance Endurance: Tolerates <30 minutes activity WITHOUT vital sign changes Plan Physical Therapy Care Plan Physical Therapy Care Plan (Active) Template: PT - Physical Therapy Problem: Activity Tolerance Dates: Start: 05/17/24 Disciplines: PT Goal: Tolerate 30 minutes of activity WITHOUT rest breaks Dates: Start: 05/17/24 Expected End: 05/26/24 Description: Goal Description: Disciplines: PT Outcomes Date/Time User Outcome 05/18/24 1317 Palak Jones, PT Progressing 05/18/24 1054 Palak Jones, PT Progressing Goal note from Hospital Encounter 03/29/2024 by Palak Jones PT Evaluation of progress towards goal: tolerated increased activity Problem: Gait Dates: Start: 05/17/24 Disciplines: PT Goal: Patient will perform gait with Stand By Assist Dates: Start: 05/17/24 Expected End: 05/26/24 Description: Pt will be able to ambulate 120 ft with walker and stand by assist to safely ambulate household distances. Disciplines: PT Outcomes Date/Time User Outcome 05/18/24 1317 Palak Jones, PT Progressing 05/18/24 1054 Palak Jones PT Progressing Goal note from Hospital Encounter 03/29/2024 by Palak Jones PT Evaluation of progress towards goal: ambulated 300ft Problem: Stairs/Curb Dates: Start: 05/17/24 Disciplines: PT Goal: Patient will perform stairs/curb with Contact Guard Dates: Start: 05/17/24 Expected End: 05/26/24 Description: Patient will be able to ascend 2 steps with HR on R and CGA to safely enter household upon hospital discharge. Disciplines: PT Outcomes Date/Time User Outcome 05/18/24 1054 Palak Jones PT Progressing Goal note from Hospital Encounter 03/29/2024 by Palak Jones PT Evaluation of progress towards goal: 2 x 6 stairs with CGA and right handrail Problem: Standing Balance Dates: Start: 05/17/24 Disciplines: PT Goal: Improve balance to good Dates: Start: 05/17/24 Expected End: 05/26/24 Description: To reduce risk of falls. Disciplines: PT Outcomes Date/Time User Outcome 05/18/24 1317 Palak Jones, PT Progressing 05/18/24 1054 Palak Jones PT Progressing Goal note from Hospital Encounter 03/29/2024 by Palak Jones PT Evaluation of progress towards goal: fair Problem: Transfers Dates: Start: 05/17/24 Disciplines: PT Goal: Patient will perform transfers with Supervision Dates: Start: 05/17/24 Expected End: 05/26/24 Description: To demonstrate improved LE strength/endurance. Disciplines: PT Outcomes Date/Time User Outcome 05/18/24 1317 Palak Jones PT Progressing 05/18/24 1054 Palak Jones PT Progressing Goal note from Hospital Encounter 03/29/2024 by Palak Jones PT Evaluation of progress towards goal: SBA Physical Therapy Care Plan (Resolved) There are no resolved problems. Principal Problem: Preop examination Images from the original note were not included. DISCHARGE PLANNING NOTE Consult received, chart reviewed: plan is to D/C to home with [facility]. Met with pt, educated on role of SW & reason for visit; pt informs goal is to return home at DC & have [facility] provide in home therapy. Pt lives lives alone informs daughters Jaden provide good support, live nearby and will be available to assist as needed. Pt has a walker, hip kit and all needed DME. Educated pt on available community resources and denies any needs. PCP and med appt transportation verified. Pt denies anxiety or depression. Pt denies etoh, tobacco or illicit drug use. Pt does not endorse food insecurity or difficulty affording home medications; preferred pharmacy is [facility] in [place]. Sticky note left in chart regarding D/C plan; teletypewriter installer following for safe care transition. 05/18/24 1204 Discharge Disposition Discharge Disposition Home with Home Health ([facility]) County Information [facility] Patient Information Primary Caregiver Self Support System Immediate family Stressors Type of stressor (Denies any stressors) Income Information Income Information Retired/Pension/Social Security Referral To Community Resources Denies needs Discharge Planning Living Arrangements Alone Support Systems Children;Family members;Temple/adam community;Friends Assistance Needed Pt denies any DC needs, questions or concerns. She has support from her dtr if needed. Type of Residence Private residence Private Residence 1 story Residence Accessibility Steps into home Number of Steps 2 Home Care Services No Community Agencies Currently Utilized Other (Comment) ([facility]) Established DME Comments Has all needed DME: Denies any new needs. Patient expects to be discharged to: DC to home with [facility]. Does the patient need discharge transport arranged? Yes Services Requested: Services Requested Discharge Disposition: Home with self care, Home with home health services Facility/Service Name: [facility] Facility/Service Fax number: [phone] Facility/Service Does the patient need discharge transportation arranged?: No Initial DC Assessment Completed: Yes DC Planning Complete Discharge Milestones: Yes Patient Goals: Patient/Caregiver Goals Patient/Caregiver Goals: Home with Outpatient Service Provider Goals: Goals Home (pt-stated) Evaluation of progress towards goal: Safe dc transition from hospital to home with family support and [facility] services Physical Therapy Treatment Discharge Recommendations PT Recommendations: Home Home Recommendations: Intermittent caregiver support for: Post Discharge Therapy Recommendations: Home Physical Therapy Past Medical History: Diagnosis Date Arthritis Diabetes mellitus type 2, controlled (CMS-HCC) GERD (gastroesophageal reflux disease) Hypertension IBS (irritable bowel syndrome) 2010 Memory loss Skin cancer Visual impairment glasses Past Surgical History: Procedure Laterality Date BACK SURGERY laminectomy CHOLECYSTECTOMY COLONOSCOPY DILATION AND CURETTAGE, DIAGNOSTIC / THERAPEUTIC EXCISIONAL HEMORRHOIDECTOMY FOOT SURGERY Right 1994 REPLACEMENT TOTAL JOINT HIP Right 04/25/2020 Performed by Tomasa Moctezuma DO at [facility] TONSILLECTOMY TUBAL LIGATION 6 Clicks: Basic Mobility Turning from your back to your side while in a flat bed without using bed rails?: None Moving from lying on your back to sitting on side of flat bed without using bed rails?: None Moving to and from bed to a chair (including w/c)?: A little Standing up from a chair using your arms (e.g. w/c or bedside chair)?: A little To walk in hospital room?: A little Climbing 3-5 steps with a railing?: A little Scoring 6 Clicks: Basic Mobility Raw Score: 20 CMS G Code Modifier: CJ Therapy Plan Need for skilled Physical Therapy to address deficits in functional mobility due to a status decline resulting from S/P L FISH. Patient Response to Treatment: Progressing toward goals Assessment Patient Assessment Patient Response to Treatment: Progressing toward goals Visit RN Communication: Yes Medical Record Reviewed: Yes PT Type of Visit: Treatment Precautions Activity: Early mobility ok pass, Ok to evaluate per RNSaritha Equipment: rolling walker, nonskid socks Weight Bearing Status: WBAT L LE Telemetry/Police Detective: No Other: S/P L FISH Pain Assessment Pain Assessment: 0-10 Pain Score: 5 Pain Type: Acute pain Pain Location: Hip Pain Orientation: Left Pain Intervention(s): Ambulation/increased activity Response to Interventions: Pain worsened (with activity, improved with rest) Cognition Overall Cognitive Status: Within Functional Limits Bed Mobility Supine to Sit: Stand by assist Transfers Sit to Stand: Contact guard assist Stand to Sit: Contact guard assist Gait Base of Support: Within Functional Limits Pattern: Decreased sarah, L Decreased heel strike, L Decreased foot clearance, Forward trunk, L Decreased stance time Gait Assistance: Contact guard assist Assistive Device: Rolling walker Gait Distance: 200ft Limiting Factors to Gait: Weakness, Fatigue, Pain 2 Turns: Yes Stair Management Technique: Step to pattern, Forwards, One rail R up Stair Management Assistance: Contact guard assist, Verbal cues Number of Stairs: 3 x 6 stairs Balance Sitting Balance: Static: Good Sitting Balance: Dynamic: Good Standing Balance: Static: Fair Standing Balance: Dynamic: Fair 05/18/24 0747 FISH FISH exercises performed? Yes Ankle pumps 10 Gluteal Sets 10 Quad sets 10 Other Exercises as above to improve strength for ease with transfers. Activity Tolerance Endurance: Tolerates <30 minutes activity WITHOUT vital sign changes Plan Physical Therapy Care Plan Physical Therapy Care Plan (Active) Template: PT - Physical Therapy Problem: Activity Tolerance Dates: Start: 05/17/24 Disciplines: PT Goal: Tolerate 30 minutes of activity WITHOUT rest breaks Dates: Start: 05/17/24 Expected End: 05/26/24 Description: Goal Description: Disciplines: PT Outcomes Date/Time User Outcome 05/18/24 1054 Palak Jones PT Progressing Goal note from Hospital Encounter 03/29/2024 by Palak Jones PT Evaluation of progress towards goal: tolerated increased activity today Problem: Gait Dates: Start: 05/17/24 Disciplines: PT Goal: Patient will perform gait with Stand By Assist Dates: Start: 05/17/24 Expected End: 05/26/24 Description: Pt will be able to ambulate 120 ft with walker and stand by assist to safely ambulate household distances. Disciplines: PT Outcomes Date/Time User Outcome 05/18/24 105 Palak Jones PT Progressing Goal note from Hospital Encounter 03/29/2024 by Palak Jones PT Evaluation of progress towards goal: ambulated 200ft with walker Problem: Stairs/Curb Dates: Start: 05/17/24 Disciplines: PT Goal: Patient will perform stairs/curb with Contact Guard Dates: Start: 05/17/24 Expected End: 05/26/24 Description: Patient will be able to ascend 2 steps with HR on R and CGA to safely enter household upon hospital discharge. Disciplines: PT Outcomes Date/Time User Outcome 05/18/24 105 Palak Jones PT Progressing Goal note from Hospital Encounter 03/29/2024 by Palak Jones PT Evaluation of progress towards goal: 2 x 6 stairs with CGA and right handrail Problem: Standing Balance Dates: Start: 05/17/24 Disciplines: PT Goal: Improve balance to good Dates: Start: 05/17/24 Expected End: 05/26/24 Description: To reduce risk of falls. Disciplines: PT Outcomes Date/Time User Outcome 05/18/241053 Palak Jones PT Progressing Goal note from Hospital Encounter 03/29/2024 by Palak Jones PT Evaluation of progress towards goal: fair Problem: Transfers Dates: Start: 05/17/24 Disciplines: PT Goal: Patient will perform transfers with Supervision Dates: Start: 05/17/24 Expected End: 05/26/24 Description: To demonstrate improved LE strength/endurance. Disciplines: PT Outcomes Date/Time User Outcome 05/18/24 105 Palak Jones PT Progressing Goal note from Hospital Encounter 03/29/2024 by Palak Jones PT Evaluation of progress towards goal: SBA Physical Therapy Care Plan (Resolved) There are no resolved problems. Principal Problem: Preop examination Problem: Knowledge Deficit Goal: Patient/patient agency service representative demonstrates understanding of disease process, treatment plan, medications, and discharge instructions Description: INTERVENTIONS 1. Complete learning assessment and assess knowledge base 2. Provide teaching at level of understanding 3. Provide teaching via preferred learning method(s) Outcome: Progressing Note: Evaluation of progress towards goal: POC discussed with patient. Questions answered PRN. Problem: Discharge Planning Goal: Discharge to post-acute care, other facility, or home with appropriate resources Description: Patient's goal is: INTERVENTIONS 1. Conduct assessment to determine patient/family and health care team treatment goals, and need for post-acute services based on payer coverage, community resources, and patient preferences, and barriers to discharge 2. Coordinate with Social work, Care Navigation, and Utilization Review to arrange appropriate level of services according to patient's needs based on patient preference and payer coverage in collaboration with the physician and health care team 3. Address psychosocial, clinical, and financial barriers to discharge as identified in assessment in conjunction with the patient/family and health care team 4. Consult appropriate ancillary services (i.e.. PT/OT/ST, etc) as needed 5. Communicate with and update the patient/family, physician, and health care team regarding progress on the discharge plan 6. Identify discharge learning needs (meds, wound care, etc). 7. Arrange for needed discharge transportation as appropriate Outcome: Progressing Note: Evaluation of progress towards goal: Continue to assess for when appropriate. Problem: Pain Goal: Patient goal is pain score less than 4, able to rest, and participant in treatment plan as appropriate Description: INTERVENTIONS: 1. Encourage patient or legal agency service representative to report early pain and ask for pain medicine when needed 2. Assess pain using appropriate pain scale and include the scale used when documenting 3. Administer analgesics based on type and severity of pain and evaluate response within appropriate time frame 4. Implement non-pharmacological measures as appropriate and evaluate response 5. Consider cultural and social influences on pain and pain management 6. Notify LIP if interventions ineffective or patient reports new pain 7. Monitor vital signs including pulse ox, end-tidal CO2 based on pain intervention 8. Reassess pain per policy 9. Teach patient or legal agency service representative interventions for comforting Outcome: Progressing Note: Evaluation of progress towards goal: Pt able to report pain according to 0/10 pain scale. Medicating patient for pain per orders. Problem: Safety Goal: Patient will be injury free during hospitalization Description: INTERVENTIONS: 1. Assess patient's risk for falls and implement fall prevention plan of care per policy 2. Provide and maintain a safe environment 3. Proper use of double Identifiers 4. Medication administration using the 5 rights 5. Hand hygiene 6. Specimens are labeled at the bedside 7. Instruct patient/ patient agency service representative about use of safety devices 8. Include patient/ patient agency service representative in decisions related to safety Outcome: Progressing Note: Evaluation of progress towards goal: Patient will remain free from falls. Room is clear of clutter, non- slip footwear is provided. Will continue to monitor. Problem: Knowledge Deficit Goal: Patient/patient agency service representative demonstrates understanding of disease process, treatment plan, medications, and discharge instructions Description: INTERVENTIONS 1. Complete learning assessment and assess knowledge base 2. Provide teaching at level of understanding 3. Provide teaching via preferred learning method(s) Outcome: Progressing Note: Evaluation of progress towards goal: Pt educated on treatment plan and medications. Problem: Low Risk Fall Score Description: Calderon Fall Score of 0 - 24 or indicated by [facility] Assessment Goal: Patient should be free from fall Description: Interventions: 1. [place] to environment 2. Hourly rounds addressing the 4 P's (Pain, Positioning, Possessions, Potty) 3. Clear area of hazards (spills, clutter, electrical cords, unnecessary equipment) 4. Place equipment (bed & TV controls, call light, phone, urinal) within reach 5. Encourage patient to wear glasses and hearing aides as appropriate 6. Maintain bed in lowest position 7. Lock wheels on bed/wheelchair 8. Provide adequate lighting, including night light 9. Assess need for additional bedding, food/fluids, pain med's prior to sleep/routinely 10. Provide gripper slippers or personal non-skid footwear 11. Teach patient and patient agency service representative to maintain environment for safety and engage in all aspects of fall prevention program Outcome: Progressing Note: Evaluation of progress towards goal: Patient will remain free from falls. Room is clear of clutter, non- slip footwear is provided. Will continue to monitor. Problem: Knowledge Deficit Goal: Patient/patient agency service representative demonstrates understanding of disease process, treatment plan, medications, and discharge instructions Description: INTERVENTIONS 1. Complete learning assessment and assess knowledge base 2. Provide teaching at level of understanding 3. Provide teaching via preferred learning method(s) Outcome: Progressing Note: Evaluation of progress towards goal: POC discussed with patient. Questions answered PRN. Problem: Discharge Planning Goal: Discharge to post-acute care, other facility, or home with appropriate resources Description: Patient's goal is: INTERVENTIONS 1. Conduct assessment to determine patient/family and health care team treatment goals, and need for post-acute services based on payer coverage, community resources, and patient preferences, and barriers to discharge 2. Coordinate with Social work, Care Navigation, and Utilization Review to arrange appropriate level of services according to patient's needs based on patient preference and payer coverage in collaboration with the physician and health care team 3. Address psychosocial, clinical, and financial barriers to discharge as identified in assessment in conjunction with the patient/family and health care team 4. Consult appropriate ancillary services (i.e.. PT/OT/ST, etc) as needed 5. Communicate with and update the patient/family, physician, and health care team regarding progress on the discharge plan 6. Identify discharge learning needs (meds, wound care, etc). 7. Arrange for needed discharge transportation as appropriate Outcome: Progressing Note: Evaluation of progress towards goal: Continue to assess for when appropriate. Summary: Left hip replacement Sandra Franklin Date of : 1940 Date of Surgery: 05/17/2024 Preoperative diagnosis: Primary osteoarthritis left hip Postoperative diagnosis: Primary osteoarthritis left hip Torn hip abductor/gluteus medius Procedure: Left total hip arthroplasty Repair of gluteus medius Implants: Depuy Corail size 12 standard offset 54 mm cup 36 mm long 36/+1.5 femoral head 2 6.5 mm acetabular screws each 30 mm in length Surgeon: Tomasa Moctezuma DO Anesthesia: Anesthesiologist: Miles Johnson MD SINGLE RESOURCE BOSS: Khris Hernandez APRN-LATONIA Monitored Anesthesia Care, Spinal OR staff: Training Lead Primary: Melida Pope RN Scrub Person: Joel Castilloa Uriah, ST Training Lead Orientee: Joe Mcelroy RNsailing instructor: Shyanne Garcia Estimated blood loss: 200 Complications: Fracture of drill bit Findings: There was a massive tear of the gluteus medius with complete detachment and proximal retraction. Procedure summary: The patient was brought to the operative suite she after spinal anesthesia. She was positioned in lateral decubitus position left hip was prepped and draped in usual fashion a time-out was taken. Incision was centered over the greater trochanter dissection was carried down past the fascia ellen beneath this there was a great deal of scar with marked hypertrophy of the bursa. Additionally beneath this there was a complete tear and retraction of the gluteus medius. The bursa was scarred to the fascia ellen I developed a plane between this I placed a Charnley retractor under the fascia ellen. I then excised the bursa. I noted the area of detachment of the gluteus medius look like he had been retracted tendon at its musculotendinous junction was full of fat. The footprint for the attachment site of the gluteus medius was glistening and covered with soft tissue The capsule was incised and the hip was dislocated [id number] was noted. The femoral head neck was cut. What remained of the labrum was excised. There was hypertrophic capsule that was also excised. The pulvinar was excised. The anterior wall is was extremely deficient and thin. I began reaming very cautiously slightly medializing the reaming sequentially up to 53. There was very little anterior wall remaining. I impacted a 54 mm cup it was snug but I further stabilized it by with 26.5 acetabular screws I attempted to insert a 3rd screw but unfortunately the drill bit fractured in the pelvic bone deep within the surface of the acetabulum and thus not retrievable without doing significant damage to the bone in the socket so I elected to leave it in place. I inserted an apex hole eliminating screw I irrigated the socket with diluted Betadine I then impacted the 36 mm liner I clicked it in place it was stable. My attention was turned towards the femur the canal was opened with a box osteotome handheld Reamer and then broaching sequentially up to a size 12 trial reductions were performed a standard offset fit best the hip was stable. The broach was removed and the size 12 standard offset collared stem was impacted into place a 1.5/30 6 mm femoral head was impacted over dry Calderon taper the hip was reduced and taken to extremes of range of motion there was no tendency towards dislocation. The soft tissues were well balanced. Some of the leg length discrepancy had been restored. I irrigated thoroughly I then used a curette to scuff up the footprint for the gluteus medius I then mobilized all bits of tendon that could be mobilized and I sewed those to the greater trochanter with a 2. Ethibond suture passing the suture through the bone and establishing a solid anchor. I then repaired the fascia ellen with 0 Vicryl suture the fat subcutaneous layers with 0 Vicryl then a running 3-0 subcuticular stitch. Prior to final closure I did infiltrate the margins of the wound with 30 cc of 0.5% Marcaine plain. Sterile dressings were applied. documented in this encounter [facility] 05-19-2024 Plan of care note Problem: Safety Goal: Patient will be injury free during hospitalization Description: INTERVENTIONS: 1. Assess patient's risk for falls and implement fall prevention plan of care per policy 2. Provide and maintain a safe environment 3. Proper use of double Identifiers 4. Medication administration using the 5 rights 5. Hand hygiene 6. Specimens are labeled at the bedside 7. Instruct patient/ patient agency service representative about use of safety devices 8. Include patient/ patient agency service representative in decisions related to safety Outcome: Progressing Note: Evaluation of progress towards goal: Pt is free of injury, safe environment provided and maintained, medication administered as ordered, hand hygiene completed. [facility] Progress note Formatting of t his note is different from the original. Physical Therapy Treatment Discharge Recommendations PT Recommendations: Home Home Recommendations: Intermittent caregiver support for: (ADL's and IADL's as needed.) Post Discharge Therapy Recommendations: Home Physical Therapy 6 Clicks: Basic Mobility Turning from your back to your side while in a flat bed without using bed rails?: None Moving from lying on your back to sitting on side of flat bed without using bed rails?: None Moving to and from bed to a chair (including w/c)?: A little Standing up from a chair using your arms (e.g. w/c or bedside chair)?: A little To walk in hospital room?: A little Climbing 3-5 steps with a railing?: A little Scoring 6 Clicks: Basic Mobility Raw Score: 20 CMS G Code Modifier: CJ PT Treatment/Interventions: ADL retraining, Functional transfer training, LE strengthening/ROM, Endurance training, Balance, Stair training, Gait training, Neuromuscular reeducation PT Frequency: Other (comment), 6-7days/week (1-2x/day) PT Duration: 10 days Patient Response to Treatment: Progressing toward goals Assessment Patient Assessment Therapy Problem List: Decreased ADL status, Decreased balance, Decreased endurance, Decreased gross motor, Decreased mobility, Decreased LE ROM, Decreased safe judgement during ADL, Decreased self-care trans Patient Response to Treatment: Progressing toward goals Mood/Affect: Appropriate for circumstances Rehab Prognosis: Good, With continued PT status post acute discharge Visit RN Communication: Yes Medical Record Reviewed: Yes PT Type of Visit: Treatment Precautions Activity: Early mobility: pass. Okay to tx per RN. Equipment: RW, gait belt. Weight Bearing Status: WBAT L LE Telemetry/Police Detective: No Oxygen Used: Room air. Other: S/P L FISH Pain Assessment Pain Assessment: 0-10 Pain Score: 1 Pain Type: Acute pain, Surgical pain Pain Location: Hip Pain Orientation: Left Pain Intervention(s): Repositioned, Ambulation/increased activity, Distraction Hearing / Speech / Vision Hearing: Within Functional Limits Speech: Within Functional Limits Current Vision: Wears glasses only for reading Bed Mobility Supine to Sit: Stand by assist, Left (HOB slightly elevated.) Sit to Supine: Stand by assist, Left (HOB flat.) Other: Patient performed bed mobility of supine to/from seated positions, SBA. Minimal verbal cues required of body mechanics to assist in transition ease. Transfers Sit to Stand: Standby assist Stand to Sit: Standby assist Toilet Transfers: Standby assist Other: Patient performed multiple sit to stand transfers from various surfaces, SBA. Cues often expressed of proper hand placement and AD management. Patient slightly impulsive with pushing AD away or walking away from AD with manuevering to surface to sit. Gait Base of Support: Within Functional Limits Pattern: Decreased sarah, L Decreased heel strike, L Decreased foot clearance, Forward trunk, L Decreased stance time Gait Assistance: Contact guard assist Assistive Device: Rolling walker Gait Distance: 150' x2 Limiting Factors to Gait: Weakness, Fatigue, Pain 2 Turns: Yes Stair Management Technique: Step to pattern, Forwards, Two rails Stair Management Assistance: Contact guard assist Number of Stairs: 3 x 6 stairs Other: Patient gait trained with use of RW as AD, CGA. Verbal cues expressed of step/AD sequencing and increased step length for improved gait pattern in environment. Patient displayed improved fluidity of gait as distance progressed, reduced step to gait pattern. Patient then completed stair training, B UE support with step to gait pattern. Re-iterated proper step sequencing. Balance Sitting Balance: Static: Good Sitting Balance: Dynamic: Fair (+) Standing Balance: Static: Fair Standing Balance: Dynamic: Fair (-) Other: B UE support required of AD in order to assist patient in maintaining balance during standing tasks. No increased unsteadiness occurred to cause LOB. Activity Tolerance Endurance: Tolerates <30 minutes activity WITHOUT vital sign changes Other: Brief rest breaks required secondary to increased level of fatigue and generalized weakness. Pain remained unchanged throughout therapy duration. 05/19/24 0720 FISH FISH exercises performed? No Other Hard copy provided of LE ther ex program to promote strength and mobility for ease of transfers and gait. Patient in bed surface with HOB elevated to patient comfort; Call light/tray table within reach; Communicated with RN on summary of tx and patient location. Plan Physical Therapy Care Plan Physical Therapy Care Plan (Active) Template: PT - Physical Therapy Problem: Activity Tolerance Dates: Start: 05/17/24 Disciplines: PT Goal: Tolerate 30 minutes of activity WITHOUT rest breaks Dates: Start: 05/17/24 Expected End: 05/26/24 Description: Goal Description: Disciplines: PT Outcomes Date/Time User Outcome 05/19/24 0746 Laya Cohen, WHITE LEAD FILTERER Progressing 05/18/24 1317 Palak Jones PT Progressing 05/18/24 1054 Palak Jones, MOHAN Progressing Goal note from Hospital Encounter 03/29/2024 by Palak Jones PT Evaluation of progress towards goal: tolerated increased activity Problem: Gait Dates: Start: 05/17/24 Disciplines: PT Goal: Patient will perform gait with Stand By Assist Dates: Start: 05/17/24 Expected End: 05/26/24 Description: Pt will be able to ambulate 120 ft with walker and stand by assist to safely ambulate household distances. Disciplines: PT Outcomes Date/Time User Outcome 05/19/24 0746 Laya Cohen, WHITE LEAD FILTERER Progressing 05/18/24 1317 Palak Jones, PT Progressing 05/18/24 1054 Palak Jones, PT Progressing Goal note from Hospital Encounter 03/29/2024 by Palak Jones, PT Evaluation of progress towards goal: ambulated 300ft Problem: Stairs/Curb Dates: Start: 05/17/24 Disciplines: PT Goal: Patient will perform stairs/curb with Contact Guard Dates: Start: 05/17/24 Expected End: 05/26/24 Description: Patient will be able to ascend 2 steps with HR on R and CGA to safely enter household upon hospital discharge. Disciplines: PT Outcomes Date/Time User Outcome 05/19/24 0746 Laya Cohen WHITE LEAD FILTERER Progressing 05/18/24 1054 Palak Jones, PT Progressing Goal note from Hospital Encounter 03/29/2024 by Laya Cohen PTA Completion of x3 six inch steps. Problem: Standing Balance Dates: Start: 05/17/24 Disciplines: PT Goal: Improve balance to good Dates: Start: 05/17/24 Expected End: 05/26/24 Description: To reduce risk of falls. Disciplines: PT Outcomes Date/Time User Outcome 05/19/24 0746 Laya Cohen, WHITE LEAD FILTERER Progressing 05/18/24 1317 Palak Jones, PT Progressing 05/18/24 1054 Palak Jones, PT Progressing Goal note from Hospital Encounter 03/29/2024 by Palak Jones, PT Evaluation of progress towards goal: fair Problem: Transfers Dates: Start: 05/17/24 Disciplines: PT Goal: Patient will perform transfers with Supervision Dates: Start: 05/17/24 Expected End: 05/26/24 Description: To demonstrate improved LE strength/endurance. Disciplines: PT Outcomes Date/Time User Outcome 05/19/24 0746 Laya Cohen, WHITE LEAD FILTERER Progressing 05/18/24 1317 Palak Jones, PT Progressing 05/18/24 1054 Palak Jones, PT Progressing Goal note from Hospital Encounter 03/29/2024 by Palak Jones, PT Evaluation of progress towards goal: SBA Physical Therapy Care Plan (Resolved) There are no resolved problems. Principal Problem: Preop examination Associated attestation - Michelle Rivera, PT - 05/19/2024 2:43 PM EDT I have reviewed and agree with this note and education documentation for this visit. [facility] 05-18-2024 Plan of care note Problem: Pain Goal: Patient goal is pain score less than 4, able to rest, and participant in treatment plan as appropriate Description: INTERVENTIONS: 1. Encourage patient or legal agency service representative to report early pain and ask for pain medicine when needed 2. Assess pain using appropriate pain scale and include the scale used when documenting 3. Administer analgesics based on type and severity of pain and evaluate response within appropriate time frame 4. Implement non-pharmacological measures as appropriate and evaluate response 5. Consider cultural and social influences on pain and pain management 6. Notify LIP if interventions ineffective or patient reports new pain 7. Monitor vital signs including pulse ox, end-tidal CO2 based on pain intervention 8. Reassess pain per policy 9. Teach patient or legal agency service representative interventions for comforting Outcome: Progressing Note: Evaluation of progress towards goal: Pt able to report pain according to 0/10 pain scale. Medicating patient for pain per orders. Problem: Safety Goal: Patient will be injury free during hospitalization Description: INTERVENTIONS: 1. Assess patient's risk for falls and implement fall prevention plan of care per policy 2. Provide and maintain a safe environment 3. Proper use of double Identifiers 4. Medication administration using the 5 rights 5. Hand hygiene 6. Specimens are labeled at the bedside 7. Instruct patient/ patient agency service representative about use of safety devices 8. Include patient/ patient agency service representative in decisions related to safety Outcome: Progressing Note: Evaluation of progress towards goal: Patient will remain free from falls. Room is clear of clutter, non- slip footwear is provided. Will continue to monitor. Problem: Infection Goal: Absence of infection during hospitalization Description: Interventions: 1. Assess and monitor for signs and symptoms of infection 2. Monitor lab/diagnostic results 3. Monitor all insertion sites i.e., indwelling lines, tubes and drains 4. Monitor endotracheal (as able) and nasal secretions for changes in amount and color 5. Administer medications as ordered 6. Instruct and encourage patient and family to use good hand hygiene technique 7. Identify and instruct patient/patient agency service representative in use of appropriate isolation precautions for identified infection/symptoms 8. Provide and discuss with patient/patient agency service representative on educational MDRO sheet 9. Encourage and monitor nutritional status daily and consult senior talent management consultant if indicated 10. Implement neutropenic guidelines as needed 11. Review exposure to history of communicable disease and recent travel history on admission 12. Encourage annual influenza vaccine 13. Encourage pneumonia vaccine Outcome: Progressing Note: Evaluation of progress towards goal: Pt shows no signs of infection. Pt afebrile. Problem: Low Risk Fall Score Description: Calderon Fall Score of 0 - 24 or indicated by [facility] Re[facility] Assessment Goal: Patient should be free from fall Description: Interventions: 1. [place] to environment 2. Hourly rounds addressing the 4 P's (Pain, Positioning, Possessions, Potty) 3. Clear area of hazards (spills, clutter, electrical cords, unnecessary equipment) 4. Place equipment (bed & TV controls, call light, phone, urinal) within reach 5. Encourage patient to wear glasses and hearing aides as appropriate 6. Maintain bed in lowest position 7. Lock wheels on bed/wheelchair 8. Provide adequate lighting, including night light 9. Assess need for additional bedding, food/fluids, pain med's prior to sleep/routinely 10. Provide gripper slippers or personal non-skid footwear 11. Teach patient and patient agency service representative to maintain environment for safety and engage in all aspects of fall prevention program Outcome: Progressing Note: Evaluation of progress towards goal: Patient will remain free from falls. Room is clear of clutter, non- slip footwear is provided. Will continue to monitor. [facility] 05-18-2024 History of Presen t illness Narrative Orthopedic Daily Progress Note: Post op Hip ASSESSMENT: #1 postop day 1, left total hip arthroplasty #2 postoperative blood loss anemia Post-Operative Day: 1 Day Post-Op Status post Procedure(s): REPLACEMENT TOTAL JOINT HIP (Left) - Wound Class: Clean - Incision Closure: Deep and Superficial Layers PLAN: Patient is doing well but would like to stay 1 more night to work with PT and for pain control. Likely discharge tomorrow if continuing to progress. Will follow up with our office on 05/25 at 10:15 SUBJECTIVE: Patient admits to pain and operative extremity. Denies shortness of breath or chest pain or orthopnea dyspepsia or abdominal pain. Patient admits to flatus, Denies evidence of infection. EXAM: GENERAL: Patient is alert and oriented to person place and time, appears without distress and is appropriate HEENT: Pupils equal and reactive to light and accommodation sclera without jaundice or injection. Cranial nerves II through XII grossly intact. CARDIOVASCULAR: Cardiac exam revealed the PMI to be normally situated and sized. The rhythm was regular and no extrasystoles were noted during auscultation. There were no murmurs, rubs, clicks, or gallops. Patient denies chest pain or orthopnea PULMONARY: Lungs were clear to auscultation. No wheezes or rales were noted. Patient denies shortness of breath ABDOMEN: Abdominal exam revealed normal bowel sounds. The abdomen was soft, non-tender, and without masses, organomegaly, or appreciable enlargement of the abdominal aorta. Patient denied abdominal pain or dyspepsia. Patient admits to flatus. EXTREMITIES: The operative lower extremity was neurovascularly intact without any sensorimotor deficits noted distal to the operative hip. Patient was able to motor feet toes ankle and knee in all anatomic planes with 5 out of 5 strength to the operative lower extremity. Dorsalis pedis and posterior tibial pulses were present and equal bilaterally. Sensation to light touch was intact all dermatomes to lower extremities bilaterally. Negative Homans and negative Rambo were noted bilaterally to lower extremities. There was no evidence of infection the lower extremities bilaterally. Compartments were soft to lower extremities bilaterally. INCISION: Dressing clean dry and intact. No signs of infection. OBJECTIVE FINDINGS: BP 97/79 Pulse 74 Temp 36.7 C (98.1 F) (Oral) Resp 16 Ht 163.8 cm (5' 4.5 ) Wt 64.4 kg (142 lb) SpO2 93% BMI 24.00 kg/m O2 Device: None (Room air) Data Review Labs No results found for this or any previous visit (from the past 24 hour(s)). Microbiology Results No results found for the last 168 hours. BRENNEN T NAGEL, CUSTOM SHOEMAKER-MANAGER VALIDATION [facility] MELVI Prasad 05/18/24 1422 documented in this encounter [facility] 05-18-2024 Progress note Formatting of t his note is different from the original. Physical Therapy Treatment Discharge Recommendations PT Recommendations: Home Home Recommendations: Intermittent caregiver support for: Post Discharge Therapy Recommendations: Home Physical Therapy 6 Clicks: Basic Mobility Turning from your back to your side while in a flat bed without using bed rails?: None Moving from lying on your back to sitting on side of flat bed without using bed rails?: None Moving to and from bed to a chair (including w/c)?: A little Standing up from a chair using your arms (e.g. w/c or bedside chair)?: A little To walk in hospital room?: A little Climbing 3-5 steps with a railing?: A little Scoring 6 Clicks: Basic Mobility Raw Score: 20 CMS G Code Modifier: CJ Therapy Plan Need for skilled Physical Therapy to address deficits in functional mobility due to a status decline resulting from S/P FISH. Patient Response to Treatment: Progressing toward goals Assessment Patient Assessment Patient Response to Treatment: Progressing toward goals Visit RN Communication: Yes Medical Record Reviewed: Yes PT Type of Visit: Treatment Precautions Activity: Ok to treat per Saritha SHEPPARD Equipment: rolling walker, nonskid socks Weight Bearing Status: WBAT L LE Telemetry/Police Detective: No Other: S/P L FISH Pain Assessment Pain Assessment: 0-10 Pain Score: 2 Pain Type: Acute pain Pain Location: Hip Pain Orientation: Left Pain Intervention(s): Ambulation/increased activity Response to Interventions: Pain worsened (with activity, improved with rest) Cognition Overall Cognitive Status: Within Functional Limits Bed Mobility Supine to Sit: Stand by assist Transfers Sit to Stand: Standby assist Stand to Sit: Standby assist Gait Base of Support: Within Functional Limits Pattern: Decreased sarah, L Decreased heel strike, L Decreased foot clearance, Forward trunk, L Decreased stance time Gait Assistance: Contact guard assist Assistive Device: Rolling walker Gait Distance: 300ft Limiting Factors to Gait: Weakness, Fatigue, Pain 2 Turns: Yes Stair Management Technique: Step to pattern, Forwards, One rail R up Stair Management Assistance: Contact guard assist, Verbal cues Number of Stairs: 3 x 6 stairs Balance Sitting Balance: Static: Good Sitting Balance: Dynamic: Good Standing Balance: Static: Fair Standing Balance: Dynamic: Fair Activity Tolerance Endurance: Tolerates <30 minutes activity WITHOUT vital sign changes Plan Physical Therapy Care Plan Physical Therapy Care Plan (Active) Template: PT - Physical Therapy Problem: Activity Tolerance Dates: Start: 05/17/24 Disciplines: PT Goal: Tolerate 30 minutes of activity WITHOUT rest breaks Dates: Start: 05/17/24 Expected End: 05/26/24 Description: Goal Description: Disciplines: PT Outcomes Date/Time User Outcome 05/18/24 1317 Palak Jones, PT Progressing 05/18/24 1054 Palak Jones PT Progressing Goal note from Hospital Encounter 03/29/2024 by Palak Jones PT Evaluation of progress towards goal: tolerated increased activity Problem: Gait Dates: Start: 05/17/24 Disciplines: PT Goal: Patient will perform gait with Stand By Assist Dates: Start: 05/17/24 Expected End: 05/26/24 Description: Pt will be able to ambulate 120 ft with walker and stand by assist to safely ambulate household distances. Disciplines: PT Outcomes Date/Time User Outcome 05/18/24 1317 Palak Jones, PT Progressing 05/18/24 1054 Palak Jones PT Progressing Goal note from Hospital Encounter 03/29/2024 by Palak Jones PT Evaluation of progress towards goal: ambulated 300ft Problem: Stairs/Curb Dates: Start: 05/17/24 Disciplines: PT Goal: Patient will perform stairs/curb with Contact Guard Dates: Start: 05/17/24 Expected End: 05/26/24 Description: Patient will be able to ascend 2 steps with HR on R and CGA to safely enter household upon hospital discharge. Disciplines: PT Outcomes Date/Time User Outcome 05/18/24 1054 Palak Jones PT Progressing Goal note from Hospital Encounter 03/29/2024 by Palak Jones PT Evaluation of progress towards goal: 2 x 6 stairs with CGA and right handrail Problem: Standing Balance Dates: Start: 05/17/24 Disciplines: PT Goal: Improve balance to good Dates: Start: 05/17/24 Expected End: 05/26/24 Description: To reduce risk of falls. Disciplines: PT Outcomes Date/Time User Outcome 05/18/24 1317 Palak Jones PT Progressing 05/18/24 1054 Palak Jones PT Progressing Goal note from Hospital Encounter 03/29/2024 by Palak Jones PT Evaluation of progress towards goal: fair Problem: Transfers Dates: Start: 05/17/24 Disciplines: PT Goal: Patient will perform transfers with Supervision Dates: Start: 05/17/24 Expected End: 05/26/24 Description: To demonstrate improved LE strength/endurance. Disciplines: PT Outcomes Date/Time User Outcome 05/18/24 1317 Palak Jones PT Progressing 05/18/24 1054 Palak Jones PT Progressing Goal note from Hospital Encounter 03/29/2024 by Palak Jones PT Evaluation of progress towards goal: SBA Physical Therapy Care Plan (Resolved) There are no resolved problems. Principal Problem: Preop examination [employer] 05-18-2024 Progress note Formatting of t his note is different from the original. Images from the original note were not included. DISCHARGE PLANNING NOTE Consult received, chart reviewed: plan is to D/C to home with [facility]. Met with pt, educated on role of SW & reason for visit; pt informs goal is to return home at [place] & have [facility] provide in home therapy. Pt lives lives alone informs daughters Jaden provide good support, live nearby and will be available to assist as needed. Pt has a walker, hip kit and all needed DME. Educated pt on available community resources and denies any needs. PCP and med appt transportation verified. Pt denies anxiety or depression. Pt denies etoh, tobacco or illicit drug use. Pt does not endorse food insecurity or difficulty affording home medications; preferred pharmacy is [facility] in [place]. Sticky note left in chart regarding D/C plan; teletypewriter installer following for safe care transition. 05/18/24 1204 Discharge Disposition Discharge Disposition Home with Home Health ([facility]) County Information [facility] Patient Information Primary Caregiver Self Support System Immediate family Stressors Type of stressor (Denies any stressors) Income Information Income Information Retired/Pension/Social Security Referral To Community Resources Denies needs Discharge Planning Living Arrangements Alone Support Systems Children;Family members;Temple/adam community;Friends Assistance Needed Pt denies any DC needs, questions or concerns. She has support from her dtr if needed. Type of Residence Private residence Private Residence 1 story Residence Accessibility Steps into home Number of Steps 2 Home Care Services No Community Agencies Currently Utilized Other (Comment) ([facility]) Established DME Comments Has all needed DME: Denies any new needs. Patient expects to be discharged to: DC to home with [facility]. Does the patient need discharge transport arranged? Yes Services Requested: Services Requested Discharge Disposition: Home with self care, Home with home health services Facility/Service Name: [facility] Facility/Service Fax number: [phone] Facility/Service Does the patient need discharge transportation arranged?: No Initial DC Assessment Completed: Yes DC Planning Complete Discharge Milestones: Yes Patient Goals: Patient/Caregiver Goals Patient/Caregiver Goals: Home with Outpatient Service Provider Goals: Goals Home (pt-stated) Evaluation of progress towards goal: Safe dc transition from hospital to home with family support and [facility] DVT[facility] 05-18-2024 Progress note Formatting of t his note is different from the original. Physical Therapy Treatment Discharge Recommendations PT Recommendations: Home Home Recommendations: Intermittent caregiver support for: Post Discharge Therapy Recommendations: Home Physical Therapy Past Medical History: Diagnosis Date Arthritis Diabetes mellitus type 2, controlled (CMS-HCC) GERD (gastroesophageal reflux disease) Hypertension IBS (irritable bowel syndrome) 2010 Memory loss Skin cancer Visual impairment glasses Past Surgical History: Procedure Laterality Date BACK SURGERY laminectomy CHOLECYSTECTOMY COLONOSCOPY DILATION AND CURETTAGE, DIAGNOSTIC / THERAPEUTIC EXCISIONAL HEMORRHOIDECTOMY FOOT SURGERY Right 1994 REPLACEMENT TOTAL JOINT HIP Right 04/25/2020 Performed by Tomasa Moctezuma DO at [facility] TONSILLECTOMY TUBAL LIGATION 6 Clicks: Basic Mobility Turning from your back to your side while in a flat bed without using bed rails?: None Moving from lying on your back to sitting on side of flat bed without using bed rails?: None Moving to and from bed to a chair (including w/c)?: A little Standing up from a chair using your arms (e.g. w/c or bedside chair)?: A little To walk in hospital room?: A little Climbing 3-5 steps with a railing?: A little Scoring 6 Clicks: Basic Mobility Raw Score: 20 CMS G Code Modifier: CJ Therapy Plan Need for skilled Physical Therapy to address deficits in functional mobility due to a status decline resulting from S/P L FISH. Patient Response to Treatment: Progressing toward goals Assessment Patient Assessment Patient Response to Treatment: Progressing toward goals Visit RN Communication: Yes Medical Record Reviewed: Yes PT Type of Visit: Treatment Precautions Activity: Early mobility ok pass, Ok to evaluate per RNSaritha Equipment: rolling walker, nonskid socks Weight Bearing Status: WBAT L LE Telemetry/Police Detective: No Other: S/P L FISH Pain Assessment Pain Assessment: 0-10 Pain Score: 5 Pain Type: Acute pain Pain Location: Hip Pain Orientation: Left Pain Intervention(s): Ambulation/increased activity Response to Interventions: Pain worsened (with activity, improved with rest) Cognition Overall Cognitive Status: Within Functional Limits Bed Mobility Supine to Sit: Stand by assist Transfers Sit to Stand: Contact guard assist Stand to Sit: Contact guard assist Gait Base of Support: Within Functional Limits Pattern: Decreased sarah, L Decreased heel strike, L Decreased foot clearance, Forward trunk, L Decreased stance time Gait Assistance: Contact guard assist Assistive Device: Rolling walker Gait Distance: 200ft Limiting Factors to Gait: Weakness, Fatigue, Pain 2 Turns: Yes Stair Management Technique: Step to pattern, Forwards, One rail R up Stair Management Assistance: Contact guard assist, Verbal cues Number of Stairs: 3 x 6 stairs Balance Sitting Balance: Static: Good Sitting Balance: Dynamic: Good Standing Balance: Static: Fair Standing Balance: Dynamic: Fair 05/18/24 0747 FISH FISH exercises performed? Yes Ankle pumps 10 Gluteal Sets 10 Quad sets 10 Other Exercises as above to improve strength for ease with transfers. Activity Tolerance Endurance: Tolerates <30 minutes activity WITHOUT vital sign changes Plan Physical Therapy Care Plan Physical Therapy Care Plan (Active) Template: PT - Physical Therapy Problem: Activity Tolerance Dates: Start: 05/17/24 Disciplines: PT Goal: Tolerate 30 minutes of activity WITHOUT rest breaks Dates: Start: 05/17/24 Expected End: 05/26/24 Description: Goal Description: Disciplines: PT Outcomes Date/Time User Outcome 05/18/24 1058 Palak Jones PT Progressing Goal note from Hospital Encounter 03/29/2024 by Palak Jones PT Evaluation of progress towards goal: tolerated increased activity today Problem: Gait Dates: Start: 05/17/24 Disciplines: PT Goal: Patient will perform gait with Stand By Assist Dates: Start: 05/17/24 Expected End: 05/26/24 Description: Pt will be able to ambulate 120 ft with walker and stand by assist to safely ambulate household distances. Disciplines: PT Outcomes Date/Time User Outcome 05/18/24 105 Palak Jones PT Progressing Goal note from Hospital Encounter 03/29/2024 by Palak Jones PT Evaluation of progress towards goal: ambulated 200ft with walker Problem: Stairs/Curb Dates: Start: 05/17/24 Disciplines: PT Goal: Patient will perform stairs/curb with Contact Guard Dates: Start: 05/17/24 Expected End: 05/26/24 Description: Patient will be able to ascend 2 steps with HR on R and CGA to safely enter household upon hospital discharge. Disciplines: PT Outcomes Date/Time User Outcome 05/18/241053 Palak Jones PT Progressing Goal note from Hospital Encounter 03/29/2024 by Palak Jones PT Evaluation of progress towards goal: 2 x 6 stairs with CGA and right handrail Problem: Standing Balance Dates: Start: 05/17/24 Disciplines: PT Goal: Improve balance to good Dates: Start: 05/17/24 Expected End: 05/26/24 Description: To reduce risk of falls. Disciplines: PT Outcomes Date/Time User Outcome 05/18/241053 Palak Jones PT Progressing Goal note from Hospital Encounter 03/29/2024 by Palak Jones PT Evaluation of progress towards goal: fair Problem: Transfers Dates: Start: 05/17/24 Disciplines: PT Goal: Patient will perform transfers with Supervision Dates: Start: 05/17/24 Expected End: 05/26/24 Description: To demonstrate improved LE strength/endurance. Disciplines: PT Outcomes Date/Time User Outcome 05/18/24 105 Palak Jones PT Progressing Goal note from Hospital Encounter 03/29/2024 by Palak Jones PT Evaluation of progress towards goal: SBA Physical Therapy Care Plan (Resolved) There are no resolved problems. Principal Problem: Preop examination T [facility] 05-18-2024 Plan of care note Problem: Knowledge Deficit Goal: Patient/patient agency service representative demonstrates understanding of disease process, treatment plan, medications, and discharge instructions Description: INTERVENTIONS 1. Complete learning assessment and assess knowledge base 2. Provide teaching at level of understanding 3. Provide teaching via preferred learning method(s) Outcome: Progressing Note: Evaluation of progress towards goal: POC discussed with patient. Questions answered PRN. Problem: Discharge Planning Goal: Discharge to post-acute care, other facility, or home with appropriate resources Description: Patient's goal is: INTERVENTIONS 1. Conduct assessment to determine patient/family and health care team treatment goals, and need for post-acute services based on payer coverage, community resources, and patient preferences, and barriers to discharge 2. Coordinate with Social work, Care Navigation, and Utilization Review to arrange appropriate level of services according to patient's needs based on patient preference and payer coverage in collaboration with the physician and health care team 3. Address psychosocial, clinical, and financial barriers to discharge as identified in assessment in conjunction with the patient/family and health care team 4. Consult appropriate ancillary services (i.e.. PT/OT/ST, etc) as needed 5. Communicate with and update the patient/family, physician, and health care team regarding progress on the discharge plan 6. Identify discharge learning needs (meds, wound care, etc). 7. Arrange for needed discharge transportation as appropriate Outcome: Progressing Note: Evaluation of progress towards goal: Continue to assess for when appropriate. [facility] 05-18-2024 Note XR HIP LT 2-3 VIEWS [...] Akash Sorensen MD on 05/18/2024 12:10 AM [facility] 05-18-2024 Note Clinical history: Postoperative evaluation. Comparisons: None. Findings: [...] Akash Sorensen MD on 05/18/2024 12:10 AM [facility] 05-17-2024 Plan of care note Problem: Pain Goal: Patient goal is pain score less than 4, able to rest, and participant in treatment plan as appropriate Description: INTERVENTIONS: 1. Encourage patient or legal agency service representative to report early pain and ask for pain medicine when needed 2. Assess pain using appropriate pain scale and include the scale used when documenting 3. Administer analgesics based on type and severity of pain and evaluate response within appropriate time frame 4. Implement non-pharmacological measures as appropriate and evaluate response 5. Consider cultural and social influences on pain and pain management 6. Notify LIP if interventions ineffective or patient reports new pain 7. Monitor vital signs including pulse ox, end-tidal CO2 based on pain intervention 8. Reassess pain per policy 9. Teach patient or legal agency service representative interventions for comforting Outcome: Progressing Note: Evaluation of progress towards goal: Pt able to report pain according to 0/10 pain scale. Medicating patient for pain per orders. Problem: Safety Goal: Patient will be injury free during hospitalization Description: INTERVENTIONS: 1. Assess patient's risk for falls and implement fall prevention plan of care per policy 2. Provide and maintain a safe environment 3. Proper use of double Identifiers 4. Medication administration using the 5 rights 5. Hand hygiene 6. Specimens are labeled at the bedside 7. Instruct patient/ patient agency service representative about use of safety devices 8. Include patient/ patient agency service representative in decisions related to safety Outcome: Progressing Note: Evaluation of progress towards goal: Patient will remain free from falls. Room is clear of clutter, non- slip footwear is provided. Will continue to monitor. Problem: Knowledge Deficit Goal: Patient/patient agency service representative demonstrates understanding of disease process, treatment plan, medications, and discharge instructions Description: INTERVENTIONS 1. Complete learning assessment and assess knowledge base 2. Provide teaching at level of understanding 3. Provide teaching via preferred learning method(s) Outcome: Progressing Note: Evaluation of progress towards goal: Pt educated on treatment plan and medications. Problem: Low Risk Fall Score Description: Calderon Fall Score of 0 - 24 or indicated by [facility] Assessment Goal: Patient should be free from fall Description: Interventions: 1. [place] to environment 2. Hourly rounds addressing the 4 P's (Pain, Positioning, Possessions, Potty) 3. Clear area of hazards (spills, clutter, electrical cords, unnecessary equipment) 4. Place equipment (bed & TV controls, call light, phone, urinal) within reach 5. Encourage patient to wear glasses and hearing aides as appropriate 6. Maintain bed in lowest position 7. Lock wheels on bed/wheelchair 8. Provide adequate lighting, including night light 9. Assess need for additional bedding, food/fluids, pain med's prior to sleep/routinely 10. Provide gripper slippers or personal non-skid footwear 11. Teach patient and patient agency service representative to maintain environment for safety and engage in all aspects of fall prevention program Outcome: Progressing Note: Evaluation of progress towards goal: Patient will remain free from falls. Room is clear of clutter, non- slip footwear is provided. Will continue to monitor. T [facility] 05-17-2024 Plan of care note Problem: Knowledge Deficit Goal: Patient/patient agency service representative demonstrates understanding of disease process, treatment plan, medications, and discharge instructions Description: INTERVENTIONS 1. Complete learning assessment and assess knowledge base 2. Provide teaching at level of understanding 3. Provide teaching via preferred learning method(s) Outcome: Progressing Note: Evaluation of progress towards goal: POC discussed with patient. Questions answered PRN. Problem: Discharge Planning Goal: Discharge to post-acute care, other facility, or home with appropriate resources Description: Patient's goal is: INTERVENTIONS 1. Conduct assessment to determine patient/family and health care team treatment goals, and need for post-acute services based on payer coverage, community resources, and patient preferences, and barriers to discharge 2. Coordinate with Social work, Care Navigation, and Utilization Review to arrange appropriate level of services according to patient's needs based on patient preference and payer coverage in collaboration with the physician and health care team 3. Address psychosocial, clinical, and financial barriers to discharge as identified in assessment in conjunction with the patient/family and health care team 4. Consult appropriate ancillary services (i.e.. PT/OT/ST, etc) as needed 5. Communicate with and update the patient/family, physician, and health care team regarding progress on the discharge plan 6. Identify discharge learning needs (meds, wound care, etc). 7. Arrange for needed discharge transportation as appropriate Outcome: Progressing Note: Evaluation of progress towards goal: Continue to assess for when appropriate. T [facility] 05-17-2024 Procedure note Summary: Left hip replacement Sandra Franklin Date of : 1940 Date of Surgery: 05/17/2024 Preoperative diagnosis: Primary osteoarthritis left hip Postoperative diagnosis: Primary osteoarthritis left hip Torn hip abductor/gluteus medius Procedure: Left total hip arthroplasty Repair of gluteus medius Implants: Depuy Corail size 12 standard offset 54 mm cup 36 mm long 36/+1.5 femoral head 2 6.5 mm acetabular screws each 30 mm in length Surgeon: Tomasa Moctezuma DO Anesthesia: Anesthesiologist: Miles Johnson MD SINGLE RESOURCE BOSS: Khris Hernandez APRN-LATONIA Monitored Anesthesia Care, Spinal OR staff: Training Lead Primary: Melida Pope RN Scrub Person: ST Jani Training Lead Orientee: Joe Mcelroy RNsailing instructor: Shyanne Garcia Estimated blood loss: 200 Complications: Fracture of drill bit Findings: There was a massive tear of the gluteus medius with complete detachment and proximal retraction. Procedure summary: The patient was brought to the operative suite she after spinal anesthesia. She was positioned in lateral decubitus position left hip was prepped and draped in usual fashion a time-out was taken. Incision was centered over the greater trochanter dissection was carried down past the fascia ellen beneath this there was a great deal of scar with marked hypertrophy of the bursa. Additionally beneath this there was a complete tear and retraction of the gluteus medius. The bursa was scarred to the fascia ellen I developed a plane between this I placed a Charnley retractor under the fascia ellen. I then excised the bursa. I noted the area of detachment of the gluteus medius look like he had been retracted tendon at its musculotendinous junction was full of fat. The footprint for the attachment site of the gluteus medius was glistening and covered with soft tissue The capsule was incised and the hip was dislocated [id number] was noted. The femoral head neck was cut. What remained of the labrum was excised. There was hypertrophic capsule that was also excised. The pulvinar was excised. The anterior wall is was extremely deficient and thin. I began reaming very cautiously slightly medializing the reaming sequentially up to 53. There was very little anterior wall remaining. I impacted a 54 mm cup it was snug but I further stabilized it by with 26.5 acetabular screws I attempted to insert a 3rd screw but unfortunately the drill bit fractured in the pelvic bone deep within the surface of the acetabulum and thus not retrievable without doing significant damage to the bone in the socket so I elected to leave it in place. I inserted an apex hole eliminating screw I irrigated the socket with diluted Betadine I then impacted the 36 mm liner I clicked it in place it was stable. My attention was turned towards the femur the canal was opened with a box osteotome handheld Reamer and then broaching sequentially up to a size 12 trial reductions were performed a standard offset fit best the hip was stable. The broach was removed and the size 12 standard offset collared stem was impacted into place a 1.5/30 6 mm femoral head was impacted over dry Calderon taper the hip was reduced and taken to extremes of range of motion there was no tendency towards dislocation. The soft tissues were well balanced. Some of the leg length discrepancy had been restored. I irrigated thoroughly I then used a curette to scuff up the footprint for the gluteus medius I then mobilized all bits of tendon that could be mobilized and I sewed those to the greater trochanter with a 2. Ethibond suture passing the suture through the bone and establishing a solid anchor. I then repaired the fascia ellen with 0 Vicryl suture the fat subcutaneous layers with 0 Vicryl then a running 3-0 subcuticular stitch. Prior to final closure I did infiltrate the margins of the wound with 30 cc of 0.5% Marcaine plain. Sterile dressings were applied. [facility] 05-17-2024 Attending History and physical note HISTORY AND PHYSICAL INTERVAL NOTE: Sandra Franklin 1940 [id number] H&P reviewed. The patient was examined and there are no changes to the H&P. Tomasa Moctezuma DO Source Note - Tomasa Moctezuma DO - 05/12/2024 1:18 PM EDT [facility] 05-17-2024 History and physical note HISTORY AND PHYSICAL INTERVAL NOTE: Sandra Franklin 1940 [id number] H&P reviewed. The patient was examined and there are no changes to the H&P. Tomasa Moctezuma DO Source Note - Tomasa Moctezuma DO - 05/12/2024 1:18 PM EDT documented in this encounter [facility] 05-16-2024 Telephone encounter Note Rx for postoperative pain [facility] 05-16-2024 Miscellaneous Notes Rx for postoperative pain documented in this encounter [facility] 05-15-2024 History of Presen t illness Narrative [facility] 3x/week or daily if needed - no active abduction for 6 weeks post op - gait train w/walker - WBAT - permanent hip dislocation protocol. documented in this encounter [facility] 04-26-2024 History of Presen t illness Narrative [...] the original note were not included. Sandra Franklin is a 83 y.o. female presents with chief complaint of No chief complaint on file. HPI: Medical Clearance for Total hip left Surgery in the past: yes Reaction to anesthesia: no No hx of stroke, DVT/PE Returning to home after surgery, with home PT Heart:no hx of CO afib or other issues Lungs; no asthma, COPD, no sleep apnea Specialist: Dr Cj Moctezuma at [facility] This is a chronic problem. The current [...] History: Diagnosis Date Actinic keratosis Acute glaucoma (CMS/HCC) 10/26/2023 Allergic rhinitis 10/26/2023 Arthritis 10/26/2023 Cancer ([facility] 10/26/2023 Chronic low back pain, unspecified back pain laterality, unspecified whether sciatica present 10/26/2023 DDD (degenerative disc disease), lumbar 10/26/2023 Hemorrhoids 10/26/2023 Night cramps Squamous cell skin cancer Past Surgical History: Procedure Laterality Date CHOLECYSTECTOMY DILATION AND CURETTAGE HEMORRHOIDECTOMY LAMINECTOMY 2006 NEUROMA SURGERY Right removal of neuroma foot OTHER SURGICAL HISTORY 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 HISTORY OF PRESENT ILLNESS: Sandra Franklin is an 83 y.o. @ female. Chief [...] LT Hip [facility] 09/23/22, XR 03/23/24 [facility]. Prehab and HEP started 04/13. Pt recently referred to [facility] pain clinic for lumbar DDD. History [...] History: Diagnosis Date Actinic keratosis Acute glaucoma ([facility]) 10/26/2023 Allergic rhinitis 10/26/2023 Arthritis 10/26/2023 Cancer ([facility]) 10/26/2023 Chronic low back pain, unspecified back [...] Comments denies dribbling. Incontinence denies. Musculoskeletal: CommentsSee [facility] for details. Skin: Rash denies. Neurologic: Dizziness [...] IMAGING: March 23, 2024 x-rays from the [facility] AP pelvis and frog lateral of the left hip demonstrate stable appearing right total hip replacement. [id number] in the left hip with subchondral sclerosis [...] Moctezuma/leo Moctezuma D.O. documented in this encounter [facility] 04-21-2024 Instructions Elda West RN - 04/21/2024 9:45 AM EDT Preoperative Education Checklist- General Surgery date: 05/17/24 Surgery time: 1145a Arrival time: 945a Please come back to the hospital between 05/09/24-05/16/24Wednesday-Wednesday 630a-430p for a blood draw. Stop at the registration desk upon arrival. The lab will give you a green blood band, bring that back with you day of surgery. 1. Bring a photo ID and your insurance card with you the day of surgery. You will check in at the main lobby of the [facility]- registration desk is straight ahead as soon as you walk in. Tell them you are here for surgery. 2. If you have a Living Will/Durable Power of It Administrator for Health Care that is not on file here, please bring a copy the day of surgery. 3. Please shower/bathe the night before surgery with the provided soap or wipes. Do not shower the morning of surgery- you will do use wipes when you arrive here at the hospital before getting into your surgical gown. Do not shave the area of your procedure for 2 days prior to your surgery. 4. NO powder, lotion, perfume/cologne, aftershave, make-up, deodorant, or hair products after you have bathed. 5. NO nail [address] helenian/acrylic on at least one finger. If you are having a hand, wrist or foot surgery then all nail st helenian and artificial/acrylic nails must be removed from that hand or foot. 6. Avoid ALL Aspirin and non-steroidal anti-inflammatory drugs and certain vitamins (Ibuprofen, Advil, Aleve, Excedrin, Meloxicam, Celebrex, fish/krill oil, etc.) for 7 days prior to surgery as instructed by your surgeon and/or your prescribing doctor. Tylenol IS ALLOWED. If you are on Ticlid, Xarelto, Eliquis, Pradaxa, Plavix or Coumadin, please check with your prescribing doctor for instructions for when to stop them. 7. If you use an inhaler, continue to use it routinely. 8. Nothing to eat or drink (not even water, gum, mints, or hard candy!) AFTER midnight prior to your surgery. 9. Take only medications that you are instructed to on the morning of surgery with a TINY SIP OF WATER. 10. Choose a responsible adult that will be able to drive you home when you are discharged from your hospital stay for your surgery and can stay with you in your home for 24 hours after your procedure. You must NOT drive any vehicle or operate any machinery for 24 hours after surgery. 11. When you dress for your appointment, please wear loose fitting clothing that is appropriate to accommodate your surgical area procedure. BRING WITH YOU ANY DEVICES YOU MAY NEED: JOHN hose, ice machine, sling/swath, brace or special shoe, oversized zip-up or button up shirt, CPAP machine if staying overnight. 12. Do NOT wear jewelry, watches, or any piercings or metal for surgery- leave these valuables and money at home. 13. Do NOT wear contact lenses for surgery- glasses are okay if needed. 14. The anesthesiologist will talk with you the day of surgery and will ask you to sign a Consent Form. 15. Refrain from smoking or any type of tobacco use for at least 8 hours and marijuana for 24 hours prior to arrival for your surgery. 16. If a GREEN BLOOD band is given to you, please bring it with you for the day of surgery. 17. Notify your surgeon if you develop any illness before your surgery. 18. If you are staying overnight, please DO NOT BRING your home medications with you. 19. If you have any questions prior to surgery, please call the [facility] office at [phone], Mon.-Fri. 7 a.m.-3 p.m. Leave a voicemail if needed. Pre-Surgery Instructions: Medication Instructions dilTIAZem CD (CARDIZEM CD) 120 mg 24 hr capsule Take morning of procedure donepeziL (ARICEPT) 5 mg tablet Stop taking 0 days prior to procedure simvastatin (ZOCOR) 10 mg tablet Stop taking 0 days prior to procedure traMADoL (ULTRAM) 50 mg tablet Stop taking 0 days prior to procedure acetaminophen (TYLENOL EXTRA STRENGTH) 500 mg tablet Stop taking 0 days prior to procedure erxylxub-ider-SN-calcium &mins (THERAGRAN-M) 9 mg iron-400 mcg tablet Stop taking 0 days prior to procedure valsartan-hydroCHLOROthiazide (DIOVAN-HCT) 80-12.5 mg per tablet Take morning of procedure How to Avoid an Infection after Your Surgery Your doctor will give you specific instructions, but remember: -ALWAYS wash hands before caring for your incision. -No picking, scratching, or rubbing your incision. -No creams, lotion, powder, rubbing alcohol or hydrogen peroxide on the incision (can harm the tissue and slow healing). -Your doctor will give you specific instructions for what type of dressing you will need and how often it will need changed for infection purposes. -No tight clothing on incision. -Do not allow anyone to touch your incision unless they are cleaning, checking, or redressing it (be sure they wash their hands first). -No contact of your incision with pets; avoid sleeping with pets. -Take full course of antibiotic if prescribed for you after surgery- do not stop unless directed to by your physician. You may also be given an antibiotic prior to your surgery to help prevent surgical site infections. -Eat a healthy and varied diet including proteins, fruits, and vegetables to help promote wound healing and keep blood sugars under control if you are diabetic. -Smoking slows the healing process by decreasing the amount of oxygen in your blood that is needed for tissue healing. Try to avoid or stop smoking if possible. LOOK at your incision each morning and each night to check the progress of healing. Some soreness, numbness, itching and/or mild bruising around the incision is normal. Call your doctor if you notice any of the following: -Increased redness or hardening around the incision area. -Increased pain at the incision site. -Incision feels hot to the touch. -Swelling or pulling apart of the incision edges. -Yellow or green drainage or foul odor coming from the incision. -Bleeding from the incision (apply pressure as needed). -Fever higher than 101 degrees Fahrenheit for more than 4 hours. SHOWERING: Your doctor will give you specific instructions, but remember: -Be careful getting into and out of the shower. -Showers should be quick (5 minutes or less). -Use a clean washcloth to gently wash your incision with soap and water and pat the area dry with a clean towel. -No re-using wash cloths or towels; get a fresh one to clean your incision. -Do not soak in the bathtub, go swimming or use a hot tub (Jacuzzi), or perform activities where your incision is submerged in water or exposed to any fluids or substances until instructed by your doctor. -If your have the sticky strips (steri-strips) over the incision, it is OK to shower with them. Do not remove them. Let them fall off on their own. If you have a question, call your doctor s office. Go to the follow-up appointment with your doctor. 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, unspecified type documented in this encounter [facility]* Diagnosis Encounter for subsequent annual wellness visit (AWV) in Medicare patient- Primary Essential hypertension (CMS/HCC) Unspecified essential hypertension Other hyperlipidemia ([facility]) 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, without long-term current use of insulin (CMS/HCC) DDD (degenerative disc disease), lumbar Degeneration of lumbar or lumbosacral intervertebral disc Stage 3b chronic kidney disease (HCC) (CMS/HCC) Routine general medical examination at health care facility Routine general medical examination at a health care facility Essential hypertension (CMS/HCC)- Primary Unspecified essential hypertension Stage 3b chronic kidney disease (HCC) (CMS/HCC) DDD (degenerative disc disease), lumbar Degeneration [...] mood disturbance, and anxiety (CMS/HCC) Essential hypertension ([facility]/HCC) Unspecified essential hypertension Primary osteoarthritis of left hip- Primary S/P total left hip arthroplasty documented in this encounter [facility]* Diagnosis Encounter for subsequent annual wellness visit (AWV) in Medicare patient- Primary Essential hypertension (CMS/HCC) Unspecified essential hypertension Other hyperlipidemia (CMS/HCC) 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, without long-term current use of insulin (CMS/HCC) DDD (degenerative disc disease), lumbar Degeneration of lumbar or lumbosacral intervertebral disc Stage 3b chronic kidney disease (HCC) ([facility]) Routine general medical examination at health care facility Routine general medical examination at a health care facility Essential hypertension (CMS/HCC)- Primary Unspecified essential hypertension Stage 3b chronic kidney disease (HCC) ([facility]) DDD (degenerative disc disease), lumbar Degeneration of lumbar or lumbosacral intervertebral disc Seasonal allergic rhinitis, unspecified trigger DDD (degenerative disc disease), lumbar- Primary Degeneration of lumbar or lumbosacral intervertebral disc 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, without long-term current use of insulin (CMS/HCC) Essential hypertension (CMS/HCC) Unspecified essential hypertension Stage 3b chronic kidney disease (HCC) ([facility]/HCC) Other hyperlipidemia (CMS/HCC) Unintentional weight loss Loss of weight 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, 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 Preoperative clearance- Primary Unspecified pre-operative examination Type 2 diabetes mellitus with diabetic chronic kidney disease (CMS/HCC) Chronic kidney disease, stage 3b (HCC) ([facility]/HCC) Unspecified dementia, unspecified severity, without behavioral disturbance, psychotic disturbance, mood disturbance, and anxiety (CMS/HCC) Essential hypertension ([facility]/HCC) Unspecified essential hypertension 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 Chronic kidney disease, stage 3b (HCC) ([facility]/HCC) Unspecified dementia, unspecified severity, without behavioral disturbance, [...] encounter [facility]* Diagnosis Essential hypertension (CMS/HCC) Unspecified essential hypertension documented [...] Memory impairment of gradual onset Other hyperlipidemia ([facility]) Essential hypertension ([facility]/HCC) Unspecified essential hypertension documented in this encounter [...] Stage 3b chronic kidney disease (HCC) (CMS/HCC) DDD (degenerative disc disease), lumbar Degeneration of lumbar or lumbosacral intervertebral disc Seasonal allergic rhinitis, unspecified trigger DDD (degenerative disc disease), lumbar- Primary Degeneration of lumbar or lumbosacral intervertebral disc 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, without long-term current use of insulin (CMS/HCC) Essential hypertension ([facility]/HCC) Unspecified essential hypertension Stage 3b chronic kidney [...] mood disturbance, and anxiety (CMS/HCC) Essential hypertension ([facility]/HCC) Unspecified essential hypertension 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 Chronic kidney disease, stage 3b (HCC) ([facility]) Unspecified dementia, unspecified severity, without behavioral disturbance, psychotic disturbance, mood disturbance, and anxiety ([facility]/HCC) Degeneration of intervertebral disc of lumbar region, unspecified whether pain present Needs flu shot Need for prophylactic vaccination and inoculation against influenza Essential hypertension ([facility]/HCC)- Primary Unspecified essential hypertension Unspecified dementia, unspecified severity, without behavioral disturbance, psychotic disturbance, mood disturbance, and anxiety ([facility]/HCC) Type 2 diabetes mellitus with diabetic chronic kidney disease ([facility]/HCC) Chronic kidney disease, stage 3b (HCC) ([facility]) 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, without long-term current use of insulin ([facility]) 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, 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 Other hyperlipidemia (CMS/HCC) Degeneration of intervertebral disc of lumbar region with discogenic back pain and lower extremity pain- Primary documented in [facility]* Diagnosis Encounter for subsequent annual wellness visit (AWV) in Medicare patient- Primary Essential hypertension (CMS/HCC) Unspecified essential hypertension Other hyperlipidemia ([facility]/HCC) 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, without long-term current use of insulin (CMS/HCC) DDD (degenerative disc disease), lumbar Degeneration of lumbar or lumbosacral intervertebral disc Stage 3b chronic kidney disease (HCC) ([facility]) Routine general medical examination at health care facility Routine general medical examination at a health care facility Essential hypertension ([facility]/HCC)- Primary Unspecified essential hypertension Stage 3b chronic kidney disease (HCC) ([facility]) DDD (degenerative disc disease), lumbar Degeneration of lumbar or lumbosacral intervertebral disc Seasonal allergic rhinitis, unspecified trigger DDD (degenerative disc disease), lumbar- Primary Degeneration of lumbar or lumbosacral intervertebral disc 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, without long-term current use of insulin ([facility]) Essential hypertension ([facility]/HCC) Unspecified essential hypertension Stage 3b chronic kidney disease (HCC) ([facility]) Other hyperlipidemia ([facility]) Unintentional weight loss Loss of weight 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, 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 Preoperative clearance- Primary Unspecified pre-operative examination Type 2 diabetes mellitus with diabetic chronic kidney disease ([facility]) Chronic kidney disease, stage 3b (HCC) ([facility]) Unspecified dementia, unspecified severity, without behavioral disturbance, psychotic disturbance, mood disturbance, and anxiety ([facility]/HCC) Essential hypertension ([facility]/HCC) Unspecified essential hypertension Type 2 diabetes mellitus with diabetic chronic kidney disease ([facility]/HCC)- Primary Chronic kidney disease, stage 3b (HCC) ([facility]) Unspecified dementia, unspecified severity, without behavioral disturbance, psychotic disturbance, mood disturbance, and anxiety ([facility]) Degeneration of intervertebral disc of lumbar region, unspecified whether pain present Needs flu shot Need for prophylactic vaccination and inoculation against influenza Essential hypertension ([facility]/HCC)- Primary Unspecified essential hypertension Unspecified dementia, unspecified severity, without behavioral disturbance, psychotic disturbance, mood disturbance, and anxiety ([facility]/HCC) Type 2 diabetes mellitus with diabetic chronic kidney disease ([facility]/HCC) Chronic kidney disease, stage 3b (HCC) ([facility]) 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, without long-term current use of insulin ([facility]) 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, 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 Other hyperlipidemia ([facility]/HCC) documented in this encounter [facility]* Diagnosis Encounter for subsequent annual wellness visit (AWV) in Medicare patient- Primary Essential hypertension ([facility]) Unspecified essential hypertension Other hyperlipidemia ([facility]) 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, without long-term current use of insulin ([facility]) DDD (degenerative disc disease), lumbar Degeneration of lumbar or lumbosacral intervertebral disc Stage 3b chronic kidney disease (HCC) ([facility]) Routine general medical examination at health care facility Routine general medical examination at a health care facility Essential hypertension ([facility])- Primary Unspecified essential hypertension Stage 3b chronic kidney disease (HCC) ([facility]) DDD (degenerative disc disease), lumbar Degeneration of lumbar or lumbosacral intervertebral disc Seasonal allergic rhinitis, unspecified trigger DDD (degenerative disc disease), lumbar- Primary Degeneration of lumbar or lumbosacral intervertebral disc 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, without long-term current use of insulin ([facility]) Essential hypertension ([facility] Unspecified essential hypertension Stage 3b chronic kidney disease (HCC) ([facility]) Other hyperlipidemia ([facility]) Unintentional weight loss Loss of weight 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, 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 Preoperative clearance- Primary Unspecified pre-operative examination Type 2 diabetes mellitus with diabetic chronic kidney disease ([facility]) Chronic kidney disease, stage 3b (HCC) ([facility]) Unspecified dementia, unspecified severity, without behavioral disturbance, psychotic disturbance, mood disturbance, and anxiety ([facility]/HCC) Essential hypertension ([facility]) Unspecified essential hypertension Type 2 diabetes mellitus with diabetic chronic kidney disease ([facility]/HCC)- Primary Chronic kidney disease, stage 3b (HCC) ([facility]) Unspecified dementia, unspecified severity, without behavioral disturbance, psychotic disturbance, mood disturbance, and anxiety ([facility]) Degeneration of intervertebral disc of lumbar region, unspecified whether pain present Needs flu shot Need for prophylactic vaccination and inoculation against influenza Essential hypertension ([facility])- Primary Unspecified essential hypertension Unspecified dementia, unspecified severity, without behavioral disturbance, psychotic disturbance, mood disturbance, and anxiety ([facility]/HCC) Type 2 diabetes mellitus with diabetic chronic kidney disease ([facility]/HCC) Chronic kidney disease, stage 3b (HCC) ([facility]) 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, without long-term current use of insulin ([facility]) 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, 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 Other hyperlipidemia ([facility]) S/P total left hip arthroplasty- Primary Left hip pain Pain in joint, pelvic region and thigh documented in this encounter [facility]* Diagnosis Preop examination- Primary Unspecified pre-operative examination Preop examination Unspecified pre-operative examination 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, unspecified whether emt intermediate insulin use ([facility]) Status post total hip replacement, left [facility] Diagnosis Encounter for subsequent annual wellness visit (AWV) in Medicare patient- Primary Essential hypertension ([facility]/HCC) Unspecified essential hypertension Other hyperlipidemia ([facility]) 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, without long-term current use of insulin ([facility]) DDD (degenerative disc disease), lumbar Degeneration of lumbar or lumbosacral intervertebral disc Stage 3b chronic kidney disease (HCC) ([facility]) Routine general medical examination at health care facility Routine general medical examination at a health care facility Essential hypertension (CMS/HCC)- Primary Unspecified essential hypertension Stage 3b chronic kidney disease (HCC) (CMS/HCC) DDD (degenerative disc disease), lumbar Degeneration of lumbar or lumbosacral intervertebral disc Seasonal allergic rhinitis, unspecified trigger DDD (degenerative disc disease), lumbar- Primary Degeneration of lumbar or lumbosacral intervertebral disc 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, without long-term current use of insulin (CMS/HCC) Essential hypertension (CMS/HCC) Unspecified essential hypertension Stage 3b chronic kidney disease (HCC) ([facility]/H[facility]) Other hyperlipidemia ([facility]/HCC) Unintentional weight loss Loss of weight Cardiac [...] impairment of gradual onset Other hyperlipidemia (CMS/HCC) Seborrheic keratosis- Primary Lentigines Herpesviral vesicular dermatitis Dermatitis herpetiformis [facility] Dis[facility] instructionsNot on filedocumented [facility] Purpose Family History No Family History Records FoundNo Family History Records FoundNo Family History Records FoundNo Family History Records Found Advance Directives No Advanced Directives Records Found Date Activated Date Inactivated Comments 04/25/2020 12:34 PM 04/27/2020 4:26 PM Date Activated Date Inactivated Comments 05/16/2024 12:51 PM 05/19/2024 6:29 PM Date Activated Date Inactivated Comments 04/25/2020 12:34 PM 04/27/2020 4:26 PM Reason for Referral Specialty Diagnoses / Procedures Referred By Contac t Referred To Contact Radiology Diagnoses 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) Chronic kidney disease, stage 3b (HCC) (CMS/HCC) Preoperative clearance Procedures Echocardiogram 2D complete Chloe Colmenares, RADHA [address] [place] [address] [facility] [address] [place] [address] Referral ID Status Reason Start Date Expiration Date Visits Requested Visits Authorized [id number] Incomplete Perform Procedure 04/26/2024 10/23/2024 1 1 Specialty Diagnoses / Procedures Referred By Contac t Referred To Contact Physical Therapy Diagnoses Primary osteoarthritis of left hip Procedures NC OFFICE/OUTPATIENT NEW HIGH MDM 60 MINUTES Brennen Nagel, RADHA [address] [place] [address] Mary Mckoy, PT [address] [place] [address] Referral ID Status Reason Start Date Expiration Date Visits Requested Visits Authorized [id number] Pending Review Specialty Services Required 05/15/2024 11/11/2024 1 1 Specialty Diagnoses / Procedures Referred By Contac t Referred To Contact Diagnoses Status post total hip replacement, left Procedures Discharge medication instruction-no alcohol while taking pain medications Brennen Nagel, [employer] [address] [place] [address] Referral ID Status Reason Start Date Expiration Date V isits Requested Visits Authorized [id number] Pending Review 05/19/2024 05/19/2025 1 1 Specialty Diagnoses / Procedures Referred By Contac t Referred To Contact Diagnoses Status post total hip replacement, left Procedures Discharge instruction after anesthesia/sedation Brennen Nagel, [employer] [address] [place] [address] Referral ID Status Reason Start Date Expiration Date V isits Requested Visits Authorized [id number] Pending Review 05/19/2024 05/19/2025 1 1 Specialty Diagnoses / Procedures Referred By Contac t Referred To Contact Procedures Follow-up with MD 7-14 days after surgery Brennen Nagel, [employer] [address] [place] [address] Referral ID Status Reason Start Date Expiration Date V isits Requested Visits Authorized [id number] Pending Review 05/19/2024 05/19/2025 1 1 Specialty Diagnoses / Procedures Referred By Contac t Referred To Contact Procedures Dressing instructions- keep incision clean and dry Brennen Nagel, CUSTOM SHOEMAKER-MANAGER [employer]ATION [address] [place] [address] Referral ID Status Reason Start Date Expiration Date V isits Requested Visits Authorized [id number] Pending Review 05/19/2024 05/19/2025 1 1 Specialty Diagnoses / Procedures Referred By Contac t Referred To Contact Procedures Hygiene- may shower Brennen Nagel, CUSTOM SHOEMAKER[employer]MANAGER [employer] [address] [place] [address] Referral ID Status Reason Start Date Expiration Date V isits Requested Visits Authorized [id number] Pending Review 05/19/2024 05/19/2025 1 1 Specialty Diagnoses / Procedures Referred By Contac t Referred To Contact Diagnoses Status post total hip replacement, left Procedures Apply ice to affected area Brennen Nagel, CUSTOM SHOEMAKER[employer]MANAGER [employer] [address] [place] [address] Referral ID Status Reason Start Date Expiration Date V isits Requested Visits Authorized [id number] Pending Review 05/19/2024 05/19/2025 1 1 Specialty Diagnoses / Procedures Referred By Contac t Referred To Contact Diagnoses Status post total hip replacement, left Procedures Wear JOHN hose- on in morning, off at night Brennen Nagel, CUSTOM SHOEMAKER[employer]MANAGER [employer] [address] [place] [address] Referral ID Status Reason Start Date Expiration Date V isits Requested Visits Authorized [id number] Pending Review 05/19/2024 05/19/2025 1 1 Specialty Diagnoses / Procedures Referred By Contac t Referred To Contact Procedures Elevate surgical leg above heart while sitting Brennen Nagel, CUSTOM SHOEMAKER[employer]MANAGER [employer] [address] [place] [address] Referral ID Status Reason Start Date Expiration Date V isits Requested Visits Authorized [id number] Pending Review 05/19/2024 05/19/2025 1 1 Additional Source Comments INFORMATION SOURCE (unrecogn ized section and content) DATE CREATED AUTHOR 08/11/2021 [facility] DATE CREATED AUTHOR AUTHOR'S ORGANIZ ATION 05/21/2024 [facility] DATE CREATED AUTHOR AUTHOR'S ORGANIZ ATION 07/14/2024 [facility] DATE CREATED AUTHOR AUTHOR'S ORGANIZ ATION 11/23/2024 [facility] EPIC Reason for Visit (unrecogniz ed section and content) Reason Onset Date Comments Med Refill 06/08/2024 Reason Comments Follow-up Reason Comments Pain Reason Comments New Med Request Reason Comments Diabetes Specialty Diagnoses / Procedures Referred By Contac t Referred To Contact Diagnoses Unilateral primary osteoarthritis, left hip Degenerative Joint Disease Left Hip Procedures NC TOTAL HIP ARTHROPLASTY REPLACEMENT TOTAL JOINT HIP Jose Elias, Tomasa A, DO [address] [facility] [place] [address] Referral ID Status Reason Start Date Expiration Date Visits Re quested Visits Authorized [id number] 1 1 Reason Comments Suspicious Skin Lesion Care Teams (unrecognized sec tion and content) Precinct Commanding Officer Relationship Specialty Start Date End Date Soy Walton MD [address] [place] [address] PCP - General Family Medicine 10/19/23 Chloe Colmenares NP Referring Physician Family Medicine 05/11/23 Precinct Commanding Officer Relationship Specialty Start Date End Date Soy Walton MD [address] [place] [place] [phone] PCP - General Family Medicine 10/19/23 Chloe Colmenares NP Referring Physician Family Medicine 05/11/23 Precinct Commanding Officer Relationship Specialty Start Date End Date Unallocated, Logan Boland MD [address] [place] [address] PCP - General Family Medicine 06/21/24 Chloe Colmenares NP Referring Physician Family Medicine 05/11/23 Precinct Commanding Officer Relationship Specialty Start Date End Date Unallocated, [place] [address] PCP - General Family Medicine 06/21/24 Chloe Colmenares NP Referring Physician Family Medicine 05/11/23 Precinct Commanding Officer Relationship Specialty Start Date End Date Unallocated, Logan Boland MD [address] [place], [place] [id number] PCP - General Family Medicine 06/21/24 Chloe Colmenares NP Referring Physician Family Medicine 05/11/23 Precinct Commanding Officer Relationship Specialty Start Date End Date Unallocated, Logan Boland MD [address] [place] [address] PCP - General Family Medicine 06/21/24 Chloe Colmenares NP Referring Physician Family Medicine 05/11/23 Precinct Commanding Officer Relationship Specialty Start Date End Date Soy Walton MD [address] [place] [phone] PCP - General Family Medicine 07/04/24 Chloe Colmenares NP [address] [place] [address] Nurse Practitioner Family Medicine 07/04/24 Precinct Commanding Officer Relationship Specialty Start Date End Date Soy Walton MD [address] [place] [address] PCP - General Family Medicine 10/19/23 Chloe Colmenares NP Referring Physician Family Medicine 05/11/23 Precinct Commanding Officer Relationship Specialty Start Date End Date Soy Walton MD [address] [place] [phone] PCP - General Family Medicine 10/19/23 Chloe Colmenares NP Referring Physician Family Medicine 05/11/23 Precinct Commanding Officer Relationship Specialty Start Date End Date Soy Walton MD [address] [place] [phone] PCP - General Family Medicine 10/19/23 Chloe Colmenares NP Referring Physician Family Medicine 05/11/23 Precinct Commanding Officer Relationship Specialty Start Date End Date Soy Walton MD [address] [place] [phone] PCP - General Family Medicine 10/19/23 Chloe Colmenares NP Referring Physician Family Medicine 05/11/23 Precinct Commanding Officer Relationship Specialty Start Date End Date Soy Walton MD [address] [place] [phone] PCP - General Family Medicine 10/19/23 Chloe Colmenares NP Referring Physician Family Medicine 05/11/23 Precinct Commanding Officer Relationship Specialty Start Date End Date Soy Walton MD [address] [place] [phone] PCP - General Family Medicine 10/19/23 Chloe Colmenares NP Referring Physician Family Medicine 05/11/23 Precinct Commanding Officer Relationship Specialty Start Date End Date Soy Walton MD [address] [place] [phone] PCP - General Family Medicine 10/19/23 Chloe Colmenares NP Referring Physician Family Medicine 05/11/23 Precinct Commanding Officer Relationship Specialty Start Date End Date Soy Walton MD [address] [place] [phone] PCP - General Family Medicine 10/19/23 Chloe Colmenares NP Referring Physician Family Medicine 05/11/23 Precinct Commanding Officer Relationship Specialty Start Date End Date Soy Walton MD [address] [place] [phone] PCP - General Family Medicine 10/19/23 Chloe Colmenares NP Referring Physician Family Medicine 05/11/23 Precinct Commanding Officer Relationship Specialty Start Date End Date Soy Walton MD [address] [place] [phone] PCP - General Family Medicine 10/19/23 Chloe Colmenares NP Referring Physician Family Medicine 05/11/23 Precinct Commanding Officer Relationship Specialty Start Date End Date Soy Walton MD [address] [place] [phone] PCP - General Family Medicine 10/19/23 Chloe Colmenares NP Referring Physician Family Medicine 05/11/23 Precinct Commanding Officer Relationship Specialty Start Date End Date Soy Walton MD [address] [place] [phone] PCP - General Family Medicine 07/04/24 Chloe Colmenares NP [address] [place] [phone] Nurse Practitioner Family Medicine 07/04/24 Precinct Commanding Officer Relationship Specialty Start Date End Date Soy Walton MD [address] [place] [phone] PCP - General Family Medicine 07/04/24 Chloe Colmenares NP [address] [place] [phone] Nurse Practitioner Family Medicine 07/04/24 Precinct Commanding Officer Relationship Specialty Start Date End Date Soy Walton MD [address] [place] [phone] PCP - General Family Medicine 07/04/24 Chloe Colmenares NP [address] [place] [address] Nurse Practitioner Family Medicine 07/04/24 Precinct Commanding Officer Relationship Specialty Start Date End Date Soy Walton MD [address] [place] [phone] PCP - General Family Medicine 07/04/24 Chloe Colmenares NP [address] [place] [address] Nurse Practitioner Family Medicine 07/04/24 Precinct Commanding Officer Relationship Specialty Start Date End Date Soy Walton MD [address] [place] [phone] PCP - General Family Medicine 07/04/24 Chloe Colmenares NP [address] [place] [phone] Nurse Practitioner Family Medicine 07/04/24 Precinct Commanding Officer Relationship Specialty Start Date End Date Soy Walton MD [address] [place] [phone] PCP - General Family Medicine 07/04/24 Chloe Colmenares NP [address] [place] [phone] Nurse Practitioner Family Medicine 07/04/24 Precinct Commanding Officer Relationship Specialty Start Date End Date Yimi Inman DO [address] [place] [id number] PCP - General Family Medicine 03/28/20 Precinct Commanding Officer Relationship Specialty Start Date End Date Chloe Colmenares, CUSTOM SHOEMAKER-MANAGER [employer]IDATION [address] [place] [address] PCP - General Nurse Practitioner 05/15/24 Precinct Commanding Officer Relationship Specialty Start Date End Date Soy Walton MD [address] [place] [phone] PCP - General Family Medicine 07/04/24 Chloe Colmenares NP [address] [place] [address] Nurse Practitioner Family Medicine 07/04/24 Scheduled Active and Recently Administ ered Medications (unrecognized section and content) Medication Order 05/17/2024 05/18/2024 05/19/2024 acetaminophen (TYLENOL EXTRA STRENGTH) tablet 1,000 mg 1,000 mg, oral, Every 6 hours scheduled, First dose on Wed05/17/24 at 1800, Start 6 hours after the pre-op dose. 1759 (Given - Provider: Yesica Gaytan RN)2314 (Given - Provider: Liliya Graham RN) 0516 (Given - Provider: Liliya Graham RN)1248 (Given - Provider: Yesica Gaytan RN)1807 (Given - Provider: Shama Machado RN)2309 (Given - Provider: Liliya Graham RN) 0600 (Given - Provider: Liliya Graham RN)1310 (Given - Provider: Shirin Montoya RN) acetaminophen (TYLENOL) tablet 650 mg (COMPLETED) 650 mg, oral, Once, On Wed05/17/24 at 1030, For 1 dose, Pre-op 1026 (Given - Provider: Marisa Paul, SILVER) aspirin EC tablet 325 mg 325 mg, oral, Daily, First dose on Sharyn 05/18/24 at 0900, Start Day of Surgery. In order to meet SCIP measures, VTE prophylaxis must be started within 24 hours of the end of the surgical procedure Do not crush or chew. 0918 (Given - Provider: Yesica Gaytan RN) 0800 (Given - Provider: Shirin Montoya, SILVER)0900 (Canceled Entry - Provider: Shirin Montoya RN) ceFAZolin (ANCEF) IVPB 2000 mg/50 mL in iso-osmotic dextrose (40 mg/mL premix) (COMPLETED) 2,000 mg, intravenous, at 100 mL/hr, Administer over 30 Minutes, Every 8 hours, First dose on Wed05/17/24 at 2000, For 2 doses, Pharmacy to adjust per renal function; Start 8 hours after pre-op dose for total of 3 doses including pre-op dose. Infuse all doses within 24 hours of initial dose. For patient less than 120 kg. Look-alike/sound-alike medication - verify indication for use., Indication: Surgical prophylaxis 2116 (New Bag - Provider: Liliya Graham RN)2146 (Stop Bag - Provider: Liliya Graham RN) 0348 (New Bag - Provider: Liliya Graham RN)0418 (Stop Bag - Provider: Liliya Graham RN) ceFAZolin (ANCEF) IVPB 2000 mg/50 mL in iso-osmotic dextrose (40 mg/mL premix) (COMPLETED) 2,000 mg, intravenous, at 100 mL/hr, Administer over 30 Minutes, Once, On Wed05/17/24 at 0945, For 1 dose, Pre-op, Look-alike/sound-alike medication - verify indication for use., Indication: Surgical prophylaxis 1233 (Given - Provider: Khris Hernandez APRN-SINGLE [employer]OSS) celecoxib (CeleBREX) capsule 200 mg (COMPLETED) 200 mg, oral, Once, On Wed05/17/24 at 1030, For 1 dose, Pre-op, Look-alike/sound-alike medication - verify indication for use. 1026 (Given - Provider: Marisa Paul RN) ferrous sulfate tablet 325 mg 325 mg, oral, 2 times daily with meals, First dose on Wed05/17/24 at 1700, Give ferrous sulfate 2 hours before or 4 hours after antacids. 1610 (Given - Provider: Yesica Gaytan RN) 0918 (Given - Provider: Yesica Gaytan RN)1710 (Given - Provider: Shama Machado RN) 0800 (Given - Provider: Shirin Montoya, SILVER) sennosides-docusate sodium (SENOKOT-S) 8.6-50 mg 1 tablet 1 tablet, oral, 2 times daily, First dose on Sharyn 05/18/24 at 0900, Start Post-Op Day 1: Hold for diarrhea 917 (Given - Provider: Yesica Gaytan RN)2139 (Given - Provider: Liliya Graham RN) 0800 (Given - Provider: Shirin Montoya, RN)0900 (Canceled Entry - Provider: Shirin Montoya, SILVER) tranexamic acid (LYSTEDA) tablet 1,950 mg (COMPLETED) 1,950 mg, oral, Once, On Wed05/17/24 at 0945, For 1 dose, Pre-op 1026 (Given - Provider: Marisa Paul RN) Continuous Medication Order 05/17/2024 05/18/2024 05/19/2024 lactated ringers infusion (CANCELED) 50 mL/hr, intravenous, Continuous, Starting on Wed05/17/24 at 0945, Pre-op, If fluid restriction is not indicated, infuse at a rate up to 5 mL/kg/hr not to exceed the total replacement volume (2 ml/kg/hr) from the time NPO status was initiated. 1023 (New Bag - Provider: Marisa Paul RN)1212 (Continued by Anesthesia - Provider: JAMIA Saini)1325 (Anesthesia Volume Adjustment - Provider: JAMIA Saini)1357 (Stop Bag - Provider: JAMIA Saini) sodium chloride 0.9 % infusion (CANCELED) 125 mL/hr, intravenous, Continuous, Starting on Wed05/17/24 at 1445 1606 (New Bag - Provider: Yesica Gaytan RN)1828 (Rate/Dose Verify - Provider: Yesica Gaytan RN)2116 (Paused - Provider: Shama Machado, SILVER)2146 (Restarted - Provider: Shama Machado RN) 0040 (Stop Bag - Provider: Shama Machado RN)0043 (New Bag - Provider: Liliya Graham RN)0048 (Paused - Provider: Shama Machado, SILVER)0050 (Restarted - Provider: Shama Machado RN)0051 (Paused - Provider: Shama Machado RN)0054 (Paused - Provider: Shama Machado RN)0054 (Paused - Provider: Shama Machado, RN)0054 (Paused - Provider: Shama Machado, RN)0054 (Restarted - Provider: Shama Machado RN)0348 (Paused - Provider: Shama Machado RN)0418 (Restarted - Provider: Shama Machado RN)0737 (Stop Bag - Provider: Shama Machado RN)0900 (Stop Bag - Provider: Yesica Gaytan RN) PRN Medication Order 05/17/2024 05/18/2024 05/19/2024 bisacodyL (DULCOLAX) suppository 10 mg 10 mg, rectal, As needed, constipation, if no BM within 6 hours of administering Milk of Magnesia, Starting on Wed05/19/24 at 0000, Start Post-Op Day 2 Look-alike/sound-alike medication - verify indication for use. BUPivacaine HCl (MARCAINE) 0.5 % (5 mg/mL) injection (CANCELED) As needed, Starting on Wed05/17/24 at 1407, Intra-op 1407 (Given - Provider: Tomasa Moctezuma DO) hydrOXYzine (ATARAX) tablet 10 mg 10 mg, oral, 3 times daily PRN, itching, Starting on Wed05/17/24 at 1434, Look-alike/sound-alike medication - verify indication for use. magnesium hydroxide (MILK OF MAGNESIA) suspension 30 mL 30 mL, oral, 2 times daily PRN, if no BM by post-op day 2, Starting on Wed05/19/24 at 0000, Start Post-Op Day 2: DO NOT use in Renal/Dialysis patients Shake well. morphine injection 2 mg(Linked Group 1) 2 mg, intravenous, Every 2 hour PRN, pain scale of 7-8, Starting on Wed05/17/24 at 1434, For severe pain unresponsive to oral pain medications, breakthrough pain, or patients unable to tolerate oral medications. Look-alike/sound-alike medication - verify indication for use. morphine injection 4 mg(Linked Group 1) 4 mg, intravenous, Every 2 hour PRN, pain scale of 9-10, Starting on Wed05/17/24 at 1434, For severe pain unresponsive to oral pain medications, breakthrough pain, or patients unable to tolerate oral medications. Look-alike/sound-alike medication - verify indication for use. ondansetron (PF) (ZOFRAN) injection 4 mg 4 mg, intravenous, Every 6 hours PRN, nausea, vomiting, Starting on Wed05/17/24 at 1434, Administer over 2-5 minutes. oxyCODONE (ROXICODONE) immediate release tablet 10 mg(Linked Group 2) 10 mg, oral, Every 4 hours PRN, severe pain - pain scale 7-10, Starting on Wed05/17/24 at 1434, The oral route is preferred for patients tolerating oral intake without nausea and vomiting. IV pain medications should be used if the oral route is ineffective for symptom control or if patient unable to take medications orally. Look-alike/sound-alike medication - verify indication for use. Immediate release. 1610 (See Alternative - Provider: Yesica Gaytan RN)2116 (See Alternative - Provider: Liliya Graham RN) 0104 (See Alternative - Provider: Liliya Graham RN)0516 (See Alternative - Provider: Liliya Graham RN)0918 (See Alternative - Provider: Yesica Gaytan RN)1253 (See Alternative - Provider: Yesica Gaytan RN)1807 (See Alternative - Provider: Shama Machado RN)2139 (See Alternative - Provider: Liliya Graham RN) oxyCODONE (ROXICODONE) immediate release tablet 5 mg(Linked Group 2) 5 mg, oral, Every 4 hours PRN, moderate pain - pain scale 4-6, Starting on Wed05/17/24 at 1434, The oral route is preferred for patients tolerating oral intake without nausea and vomiting. IV pain medications should be used if the oral route is ineffective for symptom control or if patient unable to take medications orally. Look-alike/sound-alike medication - verify indication for use. Immediate release. 1610 (Given - Provider: Yesica Gaytan RN)2116 (Given - Provider: Liliya Graham RN) 0104 (Given - Provider: Liliya Graham RN)0516 (Given - Provider: Liliya Graham RN)0918 (Given - Provider: Yesica Gaytan RN)1253 (Given - Provider: Yesica Gaytan RN)1807 (Given - Provider: Shama Machado RN)213 (Given - Provider: Liliya Graham RN) Linked Groups Order Group 1: morphine injection 2 mgJump to med 2 mg, intravenous, Every 2 hour PRN, pain scale of 7-8, Starting on Wed05/17/24 at 1434, For severe pain unresponsive to oral pain medications, breakthrough pain, or patients unable to tolerate oral medications. Look-alike/sound-alike medication - verify indication for use. Or morphine injection 4 mgJump to med 4 mg, intravenous, Every 2 hour PRN, pain scale of 9-10, Starting on Wed05/17/24 at 1434, For severe pain unresponsive to oral pain medications, breakthrough pain, or patients unable to tolerate oral medications. Look-alike/sound-alike medication - verify indication for use. Group 2: oxyCODONE (ROXICODONE) immediate release tablet 5 mgJump to med 5 mg, oral, Every 4 hours PRN, moderate pain - pain scale 4-6, Starting on Wed05/17/24 at 1434, The oral route is preferred for patients tolerating oral intake without nausea and vomiting. IV pain medications should be used if the oral route is ineffective for symptom control or if patient unable to take medications orally. Look-alike/sound-alike medication - verify indication for use. Immediate release. Or oxyCODONE (ROXICODONE) immediate release tablet 10 mgJump to med 10 mg, oral, Every 4 hours PRN, severe pain - pain scale 7-10, Starting on Wed05/17/24 at 1434, The oral route is preferred for patients tolerating oral intake without nausea and vomiting. IV pain medications should be used if the oral route is ineffective for symptom control or if patient unable to take medications orally. Look-alike/sound-alike medication - verify indication for use. Immediate release. FOR RECORDS PERTAINING TO PATIENTS WHO ARE [...] BE BASED ON THE PRIMARY CLINICAL RECORDS. [facility]. provides no warranty or guarantee of the accuracy or completeness of information in this document.
== END 2024-12-12 13:20 | disposition home or self-care (01) ==
LOC: MRI 13:19
PROVIDERS: PCP Nurse Practitioner; Visit Provider Anesthesiology
DX: M48.062 Spinal stenosis, lumbar region with neurogenic claudication (principal); M43.27 Fusion of spine, lumbosacral region
CPT/HCPCS: 72148

== ENCOUNTER 2024-12-28 14:25 | Outpatient (OUT) | payer MEDICARE, SELFPAY ==
--- NOTE | 2024-12-28 15:44 | P.CN_ITS ---
Consult Note: HPI Data of Consult Patient: new to practice Consult date: 07/10/24 Requesting Physician: Perlita Dixon NP Primary Care Provider: Chloe Colmenares NP Consult Narrative Reason for consult: low back pain Narrative: 83yof who presents for evaluation. longstanding low back pain history, weakness into bilateral lower extremities. previous lumbar fusion in 2005, which is when pain began. has continued in a series of provider directed home exercises >6 weeks, without much benefit. uses pain meds as needed. denies adverse med side effects. recently underwent lumbar MRI which is consistent with multilevel moderate to severe stenosis and lumbar spondylosis. no recent NS consultation. cc:: CC: Perlita Dixon NP Review of Systems ROS Status of ROS 10 or more systems reviewed and unremark able except as noted in history and below Musculoskeletal Reports: back pain and extremity pain PFSH PFSH Medical History (Updated 07/10/24 @ 15:10 by Janelle Sánchez) Acute glaucoma ?H40.9 - Unspecified glaucoma (ICD-10) Surgical History (Updated 07/10/24 @ 15:10 by Janelle Sánchez) History of total left hip arthroplasty ?Z96.642 - Presence of left artificial hip joint (ICD-10) History of total right hip arthroplasty ?Z96.641 - Presence of right artificial hip joint (ICD-10) History of lumbar fusion ?Z98.1 - Arthrodesis status (ICD-10) History of laparoscopic cholecystectomy ?Z90.49 - Acquired absence of other specified parts of digestive tract (ICD- 10) History of tonsillectomy and adenoidectomy ?Z90.89 - Acquired absence of other organs (ICD-10) Meds Home Medications and Allergies Home Medications ?Medication ?Instructions ?Recorded ?Confirmed ?Type diltiazem HCl 120 mg 120 mg PO DAILY 07/10/24 07/10/24 History capsule,extended release 24 hr (Cardizem CD) donepezil 5 mg tablet 5 mg PO DAILY 07/10/24 07/10/24 History simvastatin 10 mg tablet 10 mg PO DAILY 07/10/24 07/10/24 History tramadol 50 mg tablet 50 mg PO TID 07/10/24 07/10/24 History gabapentin 100 mg capsule 100 mg PO TID #90 caps 12/28/24 Rx Allergies Allergy/AdvReac Type Severity Reaction Status Date / Time iodine Allergy Unknown Unknown Verified 07/10/24 15:02 Exam Narrative Exam Narrative: Psych-alert and oriented x 3. Attentive and appropriate, constitutionally normal, displays normal mood and affect per situation. There are no obvious deficits in memory, reasoning, or intellect.? Skin-no obvious rashes, bruising, erythema noted to the patient's area of pain.? Extremities- extremities are warm with minimal edema and palpable pulses. Lumbar-tenderness to palpation noted in the lumbar spine and paraspinal musculature. Pain is elicited with flexion, extension, and lateral rotation of the lumbar spine. Range of motion is diminished with these motions. Facet loading maneuvers are positive.? Strength-noted to be unremarkable with the exception of decreased strength rated at 4 out of 5 in bilateral quadriceps femoris, anterior tibialis. Sensory-no notable sensory deficits in the bilateral lower extremities to touch or pinprick in all dermatomal distributions with the exception to decreased sensation to the bilateral L4, 5 dermatomal distribution Coordination remains intact.? Gait remains non-antalgic. increased pain with standing and walking, improved with sitting and forward flexion Assessment and Plan Assessment and Plan (1) Lumbar stenosis with neurogenic claudication: (2) Lumbar postlaminectomy syndrome: Plan 84 year old female with low back and bilateral leg pain post L4-5 fusion in 2005. Pt is not interested in NS consultation or additional surgical intervention, nor do I recommend at 84 years old. We discussed lumbar ESIs which pt is not interested in as she has previously failed to benefit from, has DM, and CKD. We reviewed the possibility of vertiflex vs a spinal cord stimulator, pt would rather undergo spinal cord stimulator trial working towards implant. risks vs benefits reviewed. pt to undergo psychiatric evaluation prior to trial. start gabapentin 100mg TID, risks vs benefits reviewed. f/u for spinal cord stimulator trial
== END 2024-12-28 14:26 | disposition home or self-care (01) ==
PROVIDERS: PCP Nurse Practitioner; Visit Provider Nurse Practitioner
DX: M48.062 Spinal stenosis, lumbar region with neurogenic claudication (principal); M96.1 Postlaminectomy syndrome, not elsewhere classified
CPT/HCPCS: G0463

== ENCOUNTER 2025-04-30 10:32 | Outpatient (OUT) | payer MEDICARE, SELFPAY ==
--- OUTSIDE RECORDS SUMMARY | 2025-04-30 10:40 | XMS_ITS | CCD ---
Author Organization [facility] Care Team Providers Care Compressed Gas Equipment Mechanic Name Role Phone REQUEST, DR NONE LISTED [...] Unavailable HOUSE, YIMI Brown Primary Care Unavailable JSOE ELIAS, TOMASA Marcano Referring Unavailable HOUSE, YIMI Brown Primary Care Unavailable JOSE ELIAS, TOMASA Marcano Referring Unavailable DEDRA, CHLOE J Primary Care Unavailable JOSE ELIAS, TOMASA Marcano Admitting Unavailable JOSE ELIAS, TOMASA Marcano Attending Unavailable HOUSE, YIMI Brown Primary Care Unavailable Dedra GOVERNMENT PROPERTY INSPECTOR, Chloe Unavailable Anton ELIZALDE, Soy Primary Care Provider [place] ELIZALDE, Noms Provider Primary Care Provi lexa Soy Walton MD Primary Care Provider Dedra GOVERNMENT PROPERTY INSPECTOR, Chloe Unavailable Jac ELIZALDE, Daniela Valdez Attending Unavailable Yimi Inman DO Primary Care Provider Symoneoli PROCESS OWNER-AMMUNITION STORAGE SUPERINTENDENT, Chloe J Primary Care Provider DEDRA, CHLOE Attending Unavailable NAGEL, BRENNEN Kramer Attending Unavailable NAGEL, BRENNEN Kramer Referring Unavailable WILLARD VENEGAS Attending Unavailable DEDRA, CHLOE Attending Unavailable AICHHOLShailesh, CHLOE Attending Unavailable AICHHOLShailesh, CHLOE Attending Unavailable JOSE ELIAS, TOMASA Marcano Attending Unavailable JOSE ELIAS, TOMASA Marcano Referring Unavailable ENEDINA PHELPS Attending Unavailable JOSE ELIAS, TOMASA Marcano Referring Unavailable ROBE, BRENNEN Kramer Attending Unavailable DEDRA, CHLOE Attending Unavailable MCKOY, MARY Trinh Attending Unavailable NAGEL, BRENNEN Kramer Referring Unavailable MCKOY, MARY Trinh Attending Unavailable NAGEL, BRENNEN Kramer Referring Unavailable JOSE ELIAS, TOMASA Marcano Attending Unavailable JOSE ELIAS, TOMASA Marcano Attending Unavailable JOSE ELIAS, TOMASA Marcano Attending Unavailable JOSE ELIAS, TOMASA Marcano Referring Unavailable DEDRA, CHLOE Attending Unavailable Allergies Allergy Classification Reported Allergen(s) Allergy Type Date of Onset Reaction(s) Facility (1 source) Adhesive agent Drug allergy (disorder) 4 [facility] Repository (20 sources) Iodine; Translations: [IODINE] Drug [...] Sig (Original) amoxicillin 500 mg oral tablet (14 sources) Penicillin-class Antibacterial Start: 10-12-2024 take 4 [...] sources) Calcium Channel Abel Start: 02-29-2024 End: 05-22-2025 take 1 capsule by mouth once daily dilTIAZem CD (Cardizem CD) 120 MG 24 hr capsule Indications: 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, unspecified type Take 1 capsule (120 mg) by mouth Daily 90 capsule 1 02/21/2025 05/22/2025 Active take 1 capsule by mo [facility] every twenty-four hours in the morning dilTIAZem CD (CARDIZEM CD) 120 mg 24 hr capsule Take 1 capsule (120 mg total) by mouth in the morning. Active donepezil hydrochloride 5 mg oral tablet (20 sources) Start: 02-29-2024 End: 06-10-2025 take 1 tablet by mouth at bedtime donepezil (Aricept) 5 MG tablet Indications: Memory impairment of gradual onset TAKE 1 TABLET (5 MG) BY MOUTH AT BEDTIME 90 tablet 1 03/12/2025 06/10/2025 Active gabapentin 100 mg oral capsule (6 sources) Anti-epileptic Agent Start: 12-28-2024 take 1 capsule by mouth in the morning, then take 1 capsule by mouth in the evening, then take 1 capsule by mouth at bedtime gabapentin (Neurontin) 100 MG capsule Take 100 mg by mouth in the morning and 100 mg in the evening and 100 mg before bedtime. 12/28/2024 Active hydroCHLOROthiazide 12.5 mg / valsartan 80 mg oral tablet (20 sources) Thiazide Diuretic, Angiotensin 2 Receptor Abel Start: 02-29-2024 End: 05-22-2025 take 1 tablet by mouth once daily valsartan-hydroCH LOROthiazide (Diovan-HCT) 80-12.5 MG tablet Indications: Essential hypertension Take 1 tablet by mouth Daily 90 tablet 1 02/21/2025 05/22/2025 Active [facility] morning valsartan-hydroCHLOROthiazide (DIOVAN-HC T) 80-12.5 mg per tablet Take 1 tablet by mouth in the morning. Active ammonium lactate 120 mg/ml topical lotion (9 sources) Start: 11-02-2024 End: 11-02-2025 ammonium lactate (Lac-Hydrin ) 12 % lotion Indications: Seborrheic keratosis Apply to affected areas on body daily. 396 g 11 11/02/2024 11/02/2025 Active melatonin 10 mg oral tablet (18 sources) melatonin 10 MG tablet Take 10 mg by mouth as needed at bedtime (insomia) Active alcwhsux-wdsp-PJ-calcium &mi ns (THERAGRAN-M) 9 mg iron-400 mcg tablet (3 sources) jopaemsy-mpob-KL -calcium &mins (THERAGRAN-M) 9 mg iron-400 mcg tablet Take 1 tablet by mouth daily. cbcrjewy-btzg-LD -calcium &mins (THERAGRAN-M) 9 mg iron-400 mcg [...] sources) HMG-CoA Reductase Inhibitor Start: 02-29-2024 End: 06-10-2025 take 1 tablet by mouth at bedtime simvastatin (Zocor) 10 MG tablet Indications: Other hyperlipidemia TAKE 1 TABLET (10 MG) BY MOUTH AT BEDTIME 90 tablet 1 03/12/2025 06/10/2025 Active traMADol hydrochloride 50 mg oral tablet (20 sources) Opioid Agonist Start: 01-07-2025 End: 02-21-2025 take 1 tablet by mouth every eight hours as needed traMADol (Ultram) 50 MG tablet Take 50 mg by mouth every 8 (eight) hours if needed 01/07/2025 02/21/2025 Discontinued (Therapy completed) Start: 09-18-2024 End: 11-09-2024 take 1 tablet [...] every 6 (six) hours if needed Active acetaminophen 325 mg / oxyCODONE hydrochloride 5 mg oral tablet (6 sources) Opioid Agonist Start: 02-21-2025 End: 05-04-2025 take 1 tablet by mouth once daily as needed for pain oxyCODONE-acetaminophen (Percocet) 5-325 MG tablet Indications: Degeneration of intervertebral disc of lumbar region with discogenic back pain and lower extremity pain Take 1 tablet by mouth Daily as needed for severe pain 30 tablet 03/14/2025 04/04/2025 Discontinued (Reorder) bisacodyl 10 mg rectal suppository (1 source) [...] Active docusate sodium 50 mg / sennosides, custodial 8.6 mg oral tablet (1 source) Start: [...] - verify indication for use. lactobacillus acidophilus [id number] unt / pectin 100 mg oral tablet [...] stage 3b (HCC)] Onset: 10-26-2023 04-26-2024 Chronic Diabetes mellitus with complications (20 [...] postprocedural pain] 05-19-2024 Episodic Other skin disorders (2 sources) Lentiginosis; [...] unspecified] Onset: 03-01-2024 Resolved: 04-26-2024 04-26-2024 Episodic Delirium, dementia, and amnestic and other cognitive disorders (20 sources) Dementia; Translations: [Unspecified dementia without behavioral disturbance] Onset: 04-26-2024 Resolved: 11-21-2024 04-26-2024 Chronic Fluid and electrolyte disorders (1 source) Dehydration; [...] disorders (20 sources) Mood disorders Onset: 10-26-2023 Resolved: 11-21-2024 10-26-2023 Other aftercare (1 source) snf (current) use of aspirin; Translations: [SPORTS AGENT CURRENT USE OF ASPIRIN] Onset: 02-18-2021 Episodic Other aftercare (1 source) Other nursing home (current) drug therapy; Translations: [OTH SPORTS AGENT CURRENT DRUG THERAPY] Onset: 02-18-2021 Episodic Other aftercare (1 source) rn long term care (current) use of oral hypoglycemic drugs; Translations: [SPORTS AGENT USE ORAL HYPOGLYCEMIC DX] Onset: 02-18-2021 Episodic [...] weight loss] Onset: 02-29-2024 02-29-2024 Episodic Other screening for suspected conditions (not mental disorders or infectious disease) (7 sources) Patient encounter status; Translations: [Encounter for screening mammogram for malignant neoplasm of breast] Onset: 11-21-2024 11-21-2024 Episodic Other skin disorders (20 sources) Seborrheic [...] Test Name Value Interpretation Reference Range Facility MR LUMBAR SPINE WO CONon [address] [address] Magnetic Resonance Report Signed Patient: SANDRA FRANKLIN MR#: [id number] : 1940 Acct:[id number] Age/Sex: 83 / F ADM Date: 12/12/24 Loc: MRI Attending Dr: Daniela Nathan M.D. Ordering Physician: Daniela Nathan M.D. Date of Service: 12/12/24 Procedure(s): MR lumbar spine wo con Accession Number(s): [id number] cc: Chloe Colmenaers NP; Daniela Nathan M.D. [address] [address] Patient Name: SANDRA FRANKLIN MRN: [id number] date: 1940 Sex: F Assigned Patient Location: MRI Current Patient Location: MRI Accession/Order Number: [id number] Exam Date: 12/12/2024 14:37 Report Date: 12/12/2024 14:45 At the request of: DANIELA NATHAN MD Procedure: MR lumbar spine wo con MRI Lumbar Spine withoutcontrast TECHNIQUE: Multiplanar T1 and T2-weighted imaging of lumbar spine obtained without contrast. HISTORY: Chronic lumbar pain. Lumbar stenosis. Claudication. History of lumbar fusion at the L4-5 COMPARISON: None The last fully segmented vertebral pair is operationally defined as L5/S1. POST SURGERY CHANGES: None BONE MARROW INFILTRATION: None BONE MARROW EDEMA: None BONY ALIGNMENT: Mild straightening LUMBAR FRACTURE: None BONY LESIONS: None KIDNEYS: No hydronephrosis is identified. AORTA: No aortic aneurysm is seen. CONUS MEDULLARIS : The distal spinal cord is in adequate position without abnormality. Additional findings CONJOINED NERVE ROOT: None Lower thoracic level: Unremarkable L1-2 :Disc space narrowing. Diffuse disc bulge. Flattening of anterior thecal sac. Mild central canal stenosis. Posterior element hypertrophy. Mild bilateral neural foraminal narrowing. L2-3: Disc space narrowing with degenerative endplate changes. Diffuse disc bulge with posterior element hypertrophy with moderate to severe central canal stenosis. Marked bilateral neural foraminal narrowing greater on the right. L3-4: Marked disc space narrowing and endplate changes. Endplate spurring and diffuse disc bulge and extensive posterior hypertrophy with severe central canal stenosis. Marked bilateral neural foraminal narrowing greater on the left. L4-5: Fixation hardware artifact. Interbody fusion change. Posterior decompression. Patent central canal. Mild bilateral neural foraminal narrowing L5-S1: Disc space narrowing. Mild anterolisthesis. Patent central canal. Moderate bilateral neural foraminal narrowing. Posterior element hypertrophy. MR/MR lumbar spine wo con IMPRESSION: Unremarkable L4-5 fusion changes. L3-4 severe central canal stenosis secondary to disc and osteophyte complex with posterior element hypertrophy. Moderate severe central canal stenosis at L2-3 level. Pre-MRI plain film assessment: None Impression dictated by: Smooth Gaytan M.D.12/12/2024 2:45 PM Dictation Location: [place] [address] Electronically authenticated by: [id number] Y Date: 12/12/2024 14:45 Dictated By: Smooth Gaytan D.O. Signed By: 12/12/24 1448 DD/ 44 TD/TT: Retail Pharmacy Merchandiser: [facility] Radiology, Radiologist, MD - 12/12/2024 [place] [address] Magnetic Resonance Report Signed Patient: SANDRA FRANKLIN MR#: [id number] : 1940 Acct:[id number] Age/Sex: 83 / F ADM Date: 12/12/24 Loc: MRI Attending Dr: Daniela Nathan M.D. Ordering Physician: Daniela Nathan M.D. Date of Service: 12/12/24 Procedure(s): MR lumbar spine wo con Accession Number(s): [id number] cc: Chloe Colmenares NP; Daniela Nathan M.D. The [place] [id number] Patient Name: SANDRA FRANKLIN MRN: [facility]:[id number] date: 1940 Sex: F Assigned Patient Location: MRI Current Patient Location: MRI Accession/Order Number: [id number] Exam Date: 12/12/2024 14:37 Report Date: 12/12/2024 14:45 At the request of: DANIELA NATHAN MD Procedure: MR lumbar spine wo con MRI Lumbar Spine withoutcontrast TECHNIQUE: Multiplanar T1 and T2-weighted imaging of lumbar spine obtained without contrast. HISTORY: Chronic lumbar pain. Lumbar stenosis. Claudication. History of lumbar fusion at the L4-5 COMPARISON: None The last fully segmented vertebral pair is operationally defined as L5/S1. POST SURGERY CHANGES: None BONE MARROW INFILTRATION: None BONE MARROW EDEMA: None BONY ALIGNMENT: Mild straightening LUMBAR FRACTURE: None BONY LESIONS: None KIDNEYS: No hydronephrosis is identified. AORTA: No aortic aneurysm is seen. CONUS MEDULLARIS : The distal spinal cord is in adequate position without abnormality. Additional findings CONJOINED NERVE ROOT: None Lower thoracic level: Unremarkable L1-2 :Disc space narrowing. Diffuse disc bulge. Flattening of anterior thecal sac. Mild central canal stenosis. Posterior element hypertrophy. Mild bilateral neural foraminal narrowing. L2-3: Disc space narrowing with degenerative endplate changes. Diffuse disc bulge with posterior element hypertrophy with moderate to severe central canal stenosis. Marked bilateral neural foraminal narrowing greater on the right. L3-4: Marked disc space narrowing and endplate changes. Endplate spurring and diffuse disc bulge and extensive posterior hypertrophy with severe central canal stenosis. Marked bilateral neural foraminal narrowing greater on the left. L4-5: Fixation hardware artifact. Interbody fusion change. Posterior decompression. Patent central canal. Mild bilateral neural foraminal narrowing L5-S1: Disc space narrowing. Mild anterolisthesis. Patent central canal. Moderate bilateral neural foraminal narrowing. Posterior element hypertrophy. MR/MR lumbar spine wo con IMPRESSION: Unremarkable L4-5 fusion changes. L3-4 severe central canal stenosis secondary to disc and osteophyte complex with posterior element hypertrophy. Moderate severe central canal stenosis at L2-3 level. Pre-MRI plain film assessment: None Impression dictated by: Smooth Gaytan M.D.12/12/2024 2:45 PM Dictation Location: [place] [address] Electronically authenticated by: [id number] Y Date: 12/12/2024 14:45 Dictated By: Smooth Gaytan D.O. Signed By: 12/12/24 1448 DD/ 44 TD/TT: Retail Pharmacy Merchandiser: [facility] Radiology Study observation (narrative) [facility] [employer] MR LUMBAR SPINE WO CONOrdere d By: Radiologist Radiology on 12-12-2024 [facility] [employer] Work Phone: ALL CBC WITH AUTO DIFFon BASOPHILS ABSOLUTE AUTO 0 [facility] Basophils/100 WBC (Bld) 0.5 % 0.2 - 2.0 % [facility] Eosinophils/100 WBC (Bld) 3.3 % 0.9 - 7.0 % [facility] Erythrocyte distribution width (RBC) [Ratio] 14 % 11.0 - 15.0 % [facility] Hematocrit (Bld) [Volume fraction] 34 % Low 36.0 - 48.0 % [facility] [employer] Hemoglobin (Bld) [Mass/Vol] 11.3 g/dL Low 12.0 - 16.0 g/dL [facility] IMMATURE GRANULOCYTES ABS AUTO 0.02 [facility] Immature granulocytes/100 WBC (Bld) 0.3 % 0.0 - 0.5 % [facility] Interpretation and review of laboratory results Abnormal [facility] LYMPHOCYTES ABSOLUTE AUTO 1.4 [facility] Lymphocytes/100 WBC (Bld) 20.8 % 20.5 - 60.0 % [facility] MCH (RBC) [Entitic mass] 31.8 pg 26.7 - 34.0 pg [facility] MCHC (RBC) [Mass/Vol] 33.2 g/dL 29.9 - 35.2 g/dL [facility] MCV (RBC) [Entitic vol] 95.8 fL 81.0 - 99.0 fL [facility] MONOCYTES ABSOLUTE AUTO 0.8 [facility] Monocytes/100 WBC (Bld) 11.6 % 1.7 - 12.0 % [facility] NEUTROPHILS ABSOLUTE AUTO 4.2 [facility] Neutrophils/100 WBC (Bld) 63.5 % 43.0 - 75.0 % [facility] Platelet mean volume (Bld) [Entitic vol] 9.4 fL Low 9.5 - 13.5 fL [facility] EO # 0.2 [facility] Healthcar e TBH PLT 326 [facility] [employer] TBH RBC 3.55 Low [facility] Health[employer] TBH WBC 6.7 [facility] Health[facility] e [facility] [employer] XR Hip - left 3 Viewson [...] Unremarkable left total hip arthroplasty. Brennen Nagel PROCESS OWNER-AMMUNITION STORAGE SUPERINTENDENT [facility] Radiology Study observation (narrative) [facility] HbA1c (Bld) [Mass fraction]o n 10-10-2024 Interpretation and review of laboratory results Normal [facility] Healthcar e Laboratory - Hematology and Cell countson 10-10-2024 HbA1c (Bld) [Mass fraction] 5.30 % [facility] ALL BASIC METABOLIC PANELon 06-27-2024 Anion gap [Moles/Vol] 15.4 mmol/L [facility] Calcium [Mass/Vol] 9.5 mg/dL 8.5 - 10. 1 mg/dL [facility] Chloride [Moles/Vol] 105 mmol/L 98 - 10 7 mmol/L [facility] CO2 [Moles/Vol] 26 mmol/L 21.0 - 32.0 mmol/L [facility] Creatinine [Mass/Vol] 1.57 mg/dL High 0.55 - 1.02 mg/dL [facility] GFR/1.73 sq M.predicted CKD-EPI (S/P/Bld) [Vol rate/Area] 38 Low >=60 mL/min/1.73m 2 [facility] Glucose [Mass/Vol] 111 mg/dL High 74 - 106 mg/dL [facility] Interpretation and review of laboratory results Abnormal [facility] Potassium [Moles/Vol] 4.4 mmol/L 3.5 - 5.1 mmol/L [facility] Sodium [Moles/Vol] 142 mmol/L 136 - 145 mmol/L [facility] TBH EGFR-NON AF TOGOLESE 31 Low >=60 mL/min/1.73m 2 [facility] Urea nitrogen [Mass/Vol] 21 mg/dL High 7.0 - 18.0 mg/dL [facility] Urea nitrogen/Creatinine [Mass ratio] 13.4 mg/mg [facility] [employer] XR Hip - left 3 Viewson 06-07 Imaging Result: June 27, 2024 x-rays AP and lateral left hip demonstrate total hip replacement in good position alignment without signs of loosening fracture or failure. Impression: Stable appearance of left total hip replacement Bobby Moctezuma D.O. [facility] [employer] [facility] Healthcar e Radiology Study observation (narrative) [facility] XR Pelvis and Hip - left 2 [...] Akash Sorensen MD on 05/18/2024 12:10 AM [facility] [employer] [facility] XR Pelvis and Hip - left 2 V iewsOrdered By: Akash Sorensen on 05-18-2024 [facility] Work Phone: XR Pelvis and Hip - left 2 V iewson 05-17-2024 Radiology Study observation (narrative) [facility] HGB A1C (GLYCO-HGB)on 2023 Glucose [Mass/Vol] 103 mg/dL Normal [facility] Comment on above: Performed By: #### H A1C #### [facility] ([id number]) [address] [place] [address], [address] [place] [address] HbA1c (Bld) [Mass fraction] 5.2 % Normal 4.4-5.6 [facility] Comment on above: Result Comment: NOTE ADA Guidelines Result HgbA1c Normal : less than 5.7 % Prediabetes : 5.7 % to 6.4 % Diabetes : > 6.4 % Use with caution in patients with abnormal hemoglobin variants as the half-life of red blood cells and in vivo glycation rates are affected. Performed By: #### H A1C #### [facility] ([id number]) [address] [place] [address], [address] [place] [address] Hemoglobin A1con 05-15-2024 Average glucose Estimated from glycated hemoglobin (Bld) [Mass/Vol] 103 mg/dL [facility] HbA1c (Bld) [Mass fraction] 5.2 % 4.4 - 5.6 % [facility] Comment on above: NOTE ADA Guidelines Result HgbA1c Normal : less than 5.7 % Prediabetes : 5.7 % to 6.4 % Diabetes : > 6.4 % Use with caution in patients with abnormal hemoglobin variants as the half-life of red blood cells and in vivo glycation rates are affected. [facility] BASIC METABOLIC PANLon 04-21 Anion gap [Moles/Vol] 13 mmol/L Normal 5-15 [facility] Comment on above: Performed By: #### C BCA, BMP #### [facility] ([id number]) [address], [address] [place] [address] Calcium [Mass/Vol] 9.7 mg/dL Normal 8.5-10.5 [facility] Comment on above: Performed By: #### C BCA, BMP #### [facility] ([id number]) [address], [address] [place] [address] Chloride [Moles/Vol] 103 mmol/L Normal 98-109 [facility] Comment on above: Performed By: #### C BCA, BMP #### [facility] ([id number]) [address], [address] [place] [address] CO2 [Moles/Vol] 25 mmol/L Normal 22-32 [facility] Comment on above: Performed By: #### C BCA, BMP #### [facility] ([id number]) [address], [address] [place] [address] Creatinine [Mass/Vol] 1.43 mg/dL High 0.40-1.00 [facility] Comment on above: Result Comment: METH OD TRACEABLE TO IDMS STANDARD Performed By: #### C BCA, BMP #### [facility] ([id number]) [address], [address] [place] [address] GFR/1.73 sq M.predicted among non-blacks MDRD (S/P/Bld) [Vol rate/Area] 36 mL/min/{1.73_m2} Low >59 [facility] Comment on above: Result Comment: Reported eGFR is based on the CKD-EPI 2020 equation that does not use a race coefficient. Performed By: #### C BCA, BMP #### [facility] ([id number]) [address], [address] [place] [address] Glucose [Mass/Vol] 122 mg/dL High 65-99 [facility] Comment on above: Performed By: #### C BCA, BMP #### [facility] ([id number]) [address], [address] [place] [address] Potassium [Moles/Vol] 3.7 mmol/L Normal 3.5-5.0 [facility] Comment on above: Performed By: #### C BCA, BMP #### [facility] ([id number]) [address], [address] [place] [address] Sodium [Moles/Vol] 141 mmol/L Normal 134-146 [facility] Comment on above: Performed By: #### C BCA, BMP #### [facility] ([id number]) [address], [address] [place] [address] Urea nitrogen [Mass/Vol] 30 mg/dL High 5-27 [facility] Comment on above: Performed By: #### C BCA, BMP #### [facility] ([id number]) [address], [address] [place] [address] CBC AND AUTO DIFFon 1620 24 ABSOLUTE BASOPHIL 0.1 X10E9/L Normal 0.0-0.2 [facility] Comment on above: Performed By: #### C BCA, BMP #### [facility] ([id number]) [address], [address] [place] [address] ABSOLUTE NEUTROPHIL 3.4 X10E9/L Normal 1.5-6.6 [facility] Comment on above: Performed By: #### C BCA, BMP #### [facility] ([id number]) [address], [address] [place] [address] Basophils/100 WBC (Bld) 1.0 % Normal [facility] Comment on above: Performed By: #### C BCA, BMP #### [facility] ([id number]) [address] [address] [place] [address] Eosinophils (Bld) [#/Vol] 0.2 10*3/uL Normal 0.0-0.4 [facility] Comment on above: Performed By: #### C BCA, BMP #### [facility] ([id number]) [address], [address] [place] [address] Eosinophils/100 WBC (Bld) 4.3 % Normal [facility] Comment on above: Performed By: #### C BCA, BMP #### [facility] ([id number]) [address], [address] [place] [address] Erythrocyte distribution width (RBC) [Ratio] 15.3 % High 11.5-15.0 [facility] Comment on above: Performed By: #### C BCA, BMP #### [facility] ([id number]) [address], [address] [place] [address] Hematocrit (Bld) [Volume fraction] 32.6 % Low 35-47 [facility] Comment on above: Performed By: #### C BCA, BMP #### [facility] ([id number]) [address] [address] [place] [address] Hemoglobin (Bld) [Mass/Vol] 11.1 g/dL Low 11.7-15.5 [facility] Comment on above: Performed By: #### C BCA, BMP #### [facility] ([id number]) [address] [address] [address] [place] [address] Lymphocytes (Bld) [#/Vol] 1.1 10*3/uL Normal 1.0-3.5 [facility] Comment on above: Performed By: #### C BCA, BMP #### [facility] ([id number]) [address], [address] [place] [address] Lymphocytes/100 WBC (Bld) 20.0 % Normal [facility] Comment on above: Performed By: #### C BCA, BMP #### [facility] ([id number]) [address], [address] [place] [address] MCH (RBC) [Entitic mass] 31.0 pg Normal 27-34 [facility] Comment on above: Performed By: #### C BCA, BMP #### [facility] ([id number]) [address], [address] [place] [address] MCHC (RBC) [Mass/Vol] 34.0 g/dL Normal 32-36 [facility] Comment on above: Performed By: #### C BCA, BMP #### [facility] ([id number]) [address], [address] [place] [address] MCV (RBC) [Entitic vol] 91 fL Normal 80-100 [facility] Comment on above: Performed By: #### C BCA, BMP #### [facility] ([id number]) [address], [address] [place] [address] Monocytes (Bld) [#/Vol] 0.6 10*3/uL Normal 0-0.9 [facility] Comment on above: Performed By: #### C BCA, BMP #### [facility] ([id number]) [address], [address] [place] [address] Monocytes/100 WBC (Bld) 11.7 % Normal [facility] Comment on above: Performed By: #### C BCA, BMP #### [facility] ([id number]) [address] [place] [address] Neutrophils/100 WBC (Bld) 63.0 % Normal [facility] Comment on above: Performed By: #### C BCA, BMP #### [facility] ([id number]) [address], [address] [place] [address] Platelet mean volume (Bld) [Entitic vol] 8.3 fL Normal 7-12 [facility] Comment on above: Performed By: #### Farhan JUAREZ, BMP #### [facility] ([id number]) [address], [address] [place] [address] Platelets (Bld) [#/Vol] 241 10*3/uL Normal 150-450 [facility] Comment on above: Performed By: #### C LARRY, BMP #### [facility] ([id number]) [address], [address] [place] [address] RBC COUNT 3.58 X10E12/L Low 3.80-5.20 [facility] Comment on above: Performed By: #### Farhan JUAREZ, BMP #### [facility] ([id number]) [address], [address] [place] [address] WBC (Bld) [#/Vol] 5.4 10*3/uL Normal 4.0-11.0 [facility] [place] [facility] Comment on above: Performed By: #### C LARRY, BMP #### [facility] ([id number]) [address], [address] [place] [address] CULTURE URINEon 03-11-2021 CULTURE URINE Culture Observations: LIGHT GROWTH OF MIXED GENITAL NASIR. NO POTENTIAL PATHOGENS SEEN. Normal [facility] Comment on above: Performed By: #### C BC #### [facility] [address] [place], [place] [address] Justina Jovita UA RANDOM W/MICROSCOPICon BACTERIA TRACE Abnormal NONE SEEN [facility] Comment on above: Performed By: #### C BC #### [facility] [address] [place] [address] Justina Jovita Bilirubin Ql (U) Negative Normal NEGATIVE [facility] Comment on above: Performed By: #### C BC #### [facility] [address] [place] [address] Justina Jovita CAST NONE SEEN Normal NONE SEEN [facility] Comment on above: Performed By: #### C BC #### [facility] [address] [place] [address] Justina Jovita Clarity (U) SL CLOUDY Abnormal CLEAR [facility] Comment on above: Performed By: #### C BC #### [facility] [address] [place] [address] Justina Jovita Color (U) LT. YELLOW Normal YELLOW [facility] Comment on above: Performed By: #### C BC #### [facility] [address] [place] [address] Justina Jovita Crystals LM Nom (Urine sed) NONE SEEN Normal NONE SEEN [facility] Comment on above: Performed By: #### C BC #### [facility] [address] [place] [address] Justina Jovita Epithelial cells LM Ql (Urine sed) FEW Abnormal NONE SEEN /RARE [facility] Comment on above: Performed By: #### C BC #### [facility] [address] [place] [address] Justina Jovita Glucose Ql (U) Negative Normal NEGATIVE [facility] Comment on above: Performed By: #### C BC #### [facility] [address] [place] [address] Justina Jovita Hemoglobin Ql (U) Negative Normal NEGATIVE [facility] Comment on above: Performed By: #### C BC #### [facility] [address] [place] [address] Justina Jovita Ketones Ql (U) Negative Normal NEGATIVE [facility] Comment on above: Performed By: #### C BC #### [facility] [address] [place] [address] Justina Jovita LEUKOCYTES SMALL Abnormal NEGATIVE [facility] Comment on above: Performed By: #### C BC #### [facility] [address] [place] [address] Justina Jovita MUCOUS SMALL Abnormal NONE SEEN [facility] Comment on above: Performed By: #### C BC #### [facility] [address] [place] [address] Justina Jovita Nitrite Ql (U) Negative Normal NEGATIVE [facility] Comment on above: Performed By: #### C BC #### [facility] [address] [place] [address] Justinajoselyn Hussein pH (U) 6.5 [pH] Normal 5-9 [facility] Comment on above: Performed By: #### C BC #### [facility] [address] [place] [address] Justina Jovita RBC 0-2 Normal 0-2 [facility] Comment on above: Performed By: #### C BC #### [facility] [address] [place] [address] Justina Hussein SPEC GRAVITY 1.020 Normal 1.005-<=1.[address] [facility] Comment on above: Performed By: #### C BC #### [facility] [address] [place], [place] [id number] Justina Hussein UA PROTEIN Negative Normal NEGATIVE/ TRACE [facility] Comment on above: Performed By: #### C BC #### [facility] [address] [place] [address] Justina Hussein Urobilinogen Qn (U) 0.2 {Juan'U}/dL Normal 0.2 - 1. 0 [facility] Comment on above: Performed By: #### C BC #### [facility] [address] [place], [place] [address] Justinajoselyn Hussein WBC 5-10 Abnormal NONE SEEN [facility] Comment on above: Performed By: #### C BC #### [facility] [address] [place], [place] [address] Justinajoselyn Hussein CBC AUTO DIFFon 02-19-2021 BASO # 0.0 103/ul Normal 0.0-0.1 [facility] Comment on above: Performed By: #### C BC #### [facility] [address] [place], [place] [address] Justina Jovita Basophils/100 WBC (Bld) 0.6 % Normal 0.2-2.0 [facility] Comment on above: Performed By: #### C BC #### [facility] [address] [place] [address] Justina Jovita EO # 0.0 103/ul Normal 0.0-0.7 [facility] Comment on above: Performed By: #### C BC #### [facility] [address] [place], [place] [address] Justina Joviat Eosinophils/100 WBC (Bld) 0.8 % Critically low 0.9-7.0 [facility] Comment on above: Performed By: #### C BC #### [facility] [address] [place], [place] [address] Justina Jovita Erythrocyte distribution width (RBC) [Ratio] 13.3 % Normal 11.0-15.0 [facility] Comment on above: Performed By: #### C BC #### [facility] [address] [place] [address] Justina Jovita Hematocrit (Bld) [Volume fraction] 37.4 % Normal 36.0-48.0 [facility] Comment on above: Performed By: #### C BC #### [facility] [address] [place], [place] [address] Justina Jovita Hemoglobin (Bld) [Mass/Vol] 12.7 g/dL Normal 12.0-16.0 [facility] Comment on above: Performed By: #### C BC #### [facility] [address] [place], [place] [address] Justina Jovita IG # 0.02 10e3/ul Normal 0.00-0.03 [facility] Comment on above: Performed By: #### C BC #### [facility] [address] [place] [address] Justina Jovita IG % 0.4 % Normal 0.0-0.5 [facility] Comment on above: Performed By: #### C BC #### [facility] [address] [place], [place] [address] Justina Jovita LYMPH # 0.7 103/ul Critically low 1.2-3.8 [facility] Comment on above: Performed By: #### C BC #### [facility] [address] [place], [place] [address] Justina Jovita Lymphocytes/100 WBC (Bld) 14.1 % Critically low 20.5-60.0 [facility] Comment on above: Performed By: #### C BC #### [facility] [address] [place], [place] [address] Justina Hussein MANUAL DIFF REQ NO Normal [facility] Comment on above: Performed By: #### C BC #### [facility] [address] [place] [address] Justinajoselyn Hussein MCH (RBC) [Entitic mass] 29.1 pg Normal 26.7-34.0 [facility] Comment on above: Performed By: #### C BC #### [facility] [address] [place] [address] Justina Hussein MCHC (RBC) [Mass/Vol] 34.0 g/dL Normal 29.9-35.2 [facility] Comment on above: Performed By: #### C BC #### [facility] [address] [place] [address] Justinajoselyn Hussein MCV (RBC) [Entitic vol] 85.6 fL Normal 81.0-99.0 [facility] Comment on above: Performed By: #### C BC #### [facility] [address] [place] [address] Justina Husseni MONO # 0.4 103/ul Normal 0.3-0.8 [facility] Comment on above: Performed By: #### C BC #### [facility] [address] [place] [address] Justina Hussein Monocytes/100 WBC (Bld) 7.4 % Normal 1.7-12.0 [facility] Comment on above: Performed By: #### C BC #### [facility] [address] [place], [place] [address] Justina Jovita NEUT # 3.8 103/ul Normal 1.4-6.5 [facility] Comment on above: Performed By: #### C BC #### [facility] [address] [place], [place] [address] Justina Jovita Neutrophils/100 WBC (Bld) 76.7 % Critically high 43.0-75.0 [facility] Comment on above: Performed By: #### C BC #### [facility] [address] [place] [address] Justinajoselyn Hussein Platelet mean volume (Bld) [Entitic vol] 9.5 fL Normal 9.5-13.5 [facility] Comment on above: Performed By: #### C BC #### [facility] [address] [place] [address] Justina Jovita PLT 259 103/ul Normal 150-450 [facility] Comment on above: Performed By: #### C BC #### [facility] [address] [place] [address] Justina Jovita RBC 4.37 106/ul Normal 4.20-5.40 [facility] Comment on above: Performed By: #### C BC #### [facility] [address] [place] [address] Justina Jovita WBC 5.0 103/ul Normal 4.0-11.0 [facility] Comment on above: Performed By: #### C BC #### [facility] [address] [place] [address] Justina Jovita ER URINE PROFILEon 1 Bilirubin Ql (U) Negative Normal NEGATIVE [facility] Comment on above: Performed By: #### E RUR #### [facility] [address] [place] [address] Justina Jovita Clarity (U) CLEAR Normal CLEAR [facility] Comment on above: Performed By: #### E RUR #### [facility] [address] [place] [address] Justina Jovita Color (U) LT. YELLOW Normal YELLOW [facility] Comment on above: Performed By: #### E RUR #### [facility] [address] [place], [place] [address] Justina Jovita ERUAHD A micrscopic examination will be performed if indicated. Normal [facility] Comment on above: Performed By: #### E RUR #### [facility] [address] [place], [place] [address] Justina Jovita Glucose Ql (U) Negative Normal NEGATIVE [facility] Comment on above: Performed By: #### E RUR #### [facility] [address] [place] [address] Justina Jovita Hemoglobin Ql (U) Negative Normal NEGATIVE [facility] Comment on above: Performed By: #### E RUR #### [facility] [address] [place], [place] [address] Justina Jovita Ketones Ql (U) TRACE Abnormal NEGATIVE [facility] Comment on above: Performed By: #### E RUR #### [facility] [address] [place] [address] Justina Jovita LEUKOCYTES Negative Normal NEGATIVE [facility] Comment on above: Performed By: #### E RUR #### [facility] [address] [place] [address] Justina Jovita Nitrite Ql (U) Negative Normal NEGATIVE [facility] Comment on above: Performed By: #### E RUR #### [facility] [address] [place] [address] Justina Jovita pH (U) 5.0 [pH] Normal 5-9 [facility] Comment on above: Performed By: #### E RUR #### [facility] [address] [place] [address] Justina Jovita SPEC GRAVITY >=1.030 Abnormal 1.005-<=1.[address] [facility] Comment on above: Performed By: #### E RUR #### [facility] [address] [place] [address] Justina Jovita UA PROTEIN Negative Normal NEGATIVE/ TRACE [facility] Comment on above: Performed By: #### E RUR #### [facility] [address] [place], [place] [address] Justina Jovita UR MICRO IND NOT INDICATED Normal [facility] Comment on above: Performed By: #### E RUR #### [facility] [address] [place] [address] Justina Jovita Urobilinogen Qn (U) 0.2 {Juan'U}/dL Normal 0.2 - 1. 0 [facility] [place] [facility] Comment on above: Performed By: #### E RUR #### [facility] [address] [place], [place] [address] Justinajoselyn Chairezen PROF CHEM 8 (BAS METB)on Anion gap [Moles/Vol] 15.2 mmol/L Normal [facility] Comment on above: Performed By: #### B MP #### [facility] [address] [place] [id number] Justina Jovita Calcium [Mass/Vol] 9.3 mg/dL Normal 8.4-10.2 [facility] Comment on above: Performed By: #### B MP #### [facility] [address] [place], [place] [address] Justina Jovita Chloride [Moles/Vol] 102 mmol/L Normal 98-107 [facility] Comment on above: Performed By: #### B MP #### [facility] [address] [place] [id number] Justina Jovita CO2 [Moles/Vol] 28.5 mmol/L Normal 22.0-30.0 [facility] Comment on above: Performed By: #### B MP #### [facility] [address] [place], [place] [address] Justina Jovita Creatinine [Mass/Vol] 1.35 mg/dL Critically high 0.52-1.04 [facility] Comment on above: Performed By: #### B MP #### [facility] [address] [place] [id number] Justina Jovita EGFR-AF TOGOLESE 46 mL/min/1.73m2 Critically low >=60 [facility] Comment on above: Performed By: #### B MP #### [facility] [address] [place] [id number] Justina Jovita EGFR-NON AF TOGOLESE 38 mL/min/1.73m2 Critically low >=60 [facility] Comment on above: Performed By: #### B MP #### [facility] [address] [place] [id number] Justina Jovita Glucose [Mass/Vol] 121 mg/dL Critically high 74-106 [facility] Comment on above: Performed By: #### B MP #### [facility] [address] [place] [id number] Justina Jovita Potassium [Moles/Vol] 3.7 mmol/L Normal 3.4-5.0 [facility] Comment on above: Performed By: #### B MP #### [facility] [address] [place] [id number] Justina Jovita Sodium [Moles/Vol] 142 mmol/L Normal 137-145 [facility] Comment on above: Performed By: #### B MP #### [facility] [address] [place] [id number] Justina Jovita Urea nitrogen [Mass/Vol] 12.0 mg/dL Normal 7.0-17.0 [facility] Comment on above: Performed By: #### B MP #### [facility] [address] [place], [place] [address] Justina Jovita Urea nitrogen/Creatinine [Mass ratio] 8.9 mg/mg Normal [facility] Comment on above: Performed By: #### B MP #### [facility] [address] [place], [place] [address] Justina Jovita CBC AUTO DIFFon 02-16-2021 BASO # 0.0 103/ul Normal 0.0-0.1 [facility] Comment on above: Performed By: #### C BC #### [facility] [address] [place], [place] [address] Justina Jovita Basophils/100 WBC (Bld) 0.6 % Normal 0.2-2.0 [facility] Comment on above: Performed By: #### C BC #### [facility] [address] [place], [place] [address] Justina Jovita EO # 0.1 103/ul Normal 0.0-0.7 [facility] Comment on above: Performed By: #### C BC #### [facility] [address] [place], [place] [address] Justina Jovita Eosinophils/100 WBC (Bld) 1.8 % Normal 0.9-7.0 [facility] Comment on above: Performed By: #### C BC #### [facility] [address] [place] [address] Justina Jovita Erythrocyte distribution width (RBC) [Ratio] 13.3 % Normal 11.0-15.0 [facility] Comment on above: Performed By: #### C BC #### [facility] [address] [place] [address] Justina Jovita Hematocrit (Bld) [Volume fraction] 37.7 % Normal 36.0-48.0 [facility] Comment on above: Performed By: #### C BC #### [facility] [address] [place] [address] Justina Jovita Hemoglobin (Bld) [Mass/Vol] 13.0 g/dL Normal 12.0-16.0 [facility] Comment on above: Performed By: #### C BC #### [facility] [address] [place] [address] Juts[employer] Jovita IG # 0.02 10e3/ul Normal 0.00-0.03 [facility] Comment on above: Performed By: #### C BC #### [facility] [address] [place] [address] Justina Jovita IG % 0.3 % Normal 0.0-0.5 [facility] Comment on above: Performed By: #### C BC #### [facility] [address] [place] [address] Justina Jovita LYMPH # 1.5 103/ul Normal 1.2-3.8 [facility] Comment on above: Performed By: #### C BC #### [facility] [address] [place] [address] Justina Jovita Lymphocytes/100 WBC (Bld) 23.4 % Normal 20.5-60.0 [facility] Comment on above: Performed By: #### C BC #### [facility] [address] [place] [address] Justina Jovita MANUAL DIFF REQ NO Normal [facility] Comment on above: Performed By: #### C BC #### [facility] [address] [place] [address] Justina Hussein MCH (RBC) [Entitic mass] 29.5 pg Normal 26.7-34.0 [facility] Comment on above: Performed By: #### C BC #### [facility] [address] [place] [id number] Justina Hussein MCHC (RBC) [Mass/Vol] 34.5 g/dL Normal 29.9-35.2 [facility] Comment on above: Performed By: #### C BC #### [facility] [address] [place] [address] Justina Hussein MCV (RBC) [Entitic vol] 85.5 fL Normal 81.0-99.0 [facility] Comment on above: Performed By: #### C BC #### [facility] [address] [place] [address] Justina Hussein MONO # 0.7 103/ul Normal 0.3-0.8 [facility] Comment on above: Performed By: #### C BC #### [facility] [address] [place] [address] Justina Hussein Monocytes/100 WBC (Bld) 10.3 % Normal 1.7-12.0 [facility] Comment on above: Performed By: #### C BC #### [facility] [address] [place] [address] Justina Hussein NEUT # 4.2 103/ul Normal 1.4-6.5 [facility] Comment on above: Performed By: #### C BC #### [facility] [address] [place] [id number] Justina Hussein Neutrophils/100 WBC (Bld) 63.6 % Normal 43.0-75.0 [facility] Comment on above: Performed By: #### C BC #### [facility] [address] [place] [id number] Justinajoselyn Hussein Platelet mean volume (Bld) [Entitic vol] 9.9 fL Normal 9.5-13.5 [facility] Comment on above: Performed By: #### C BC #### [facility] [address] [place] [address] Justina Hussein PLT 338 103/ul Normal 150-450 [facility] Comment on above: Performed By: #### C BC #### [facility] [address] [place], [place] [address] Justina Hussein RBC 4.41 106/ul Normal 4.20-5.40 [facility] Comment on above: Performed By: #### C BC #### [facility] [address] [place], [place] [address] Justina Hussein WBC 6.6 103/ul Normal 4.0-11.0 [facility] Comment on above: Performed By: #### C BC #### [facility] [address] [place], [place] [address] ABD/PELVIS WO CONon 02-16 [...] BRITTANI CABALLERO Date: 2021-02-16 17:59 Normal [facility] CULTURE URINEon 02-16-2021 CULTURE URINE Culture Observations: LIGHT GROWTH OF MIXED GENITAL NASIR. NO POTENTIAL PATHOGENS SEEN. Normal [facility] Comment on above: Performed By: #### C BC #### [facility] [address] [place] [address] Justina Jovita ER URINE PROFILEon Bilirubin Ql (U) Negative Normal NEGATIVE [facility] Comment on above: Performed By: #### DESIREE BRITO #### [facility] [address] [place] [address] Justina Jovita Clarity (U) CLEAR Normal CLEAR [facility] Comment on above: Performed By: #### LILIANA BRITORO #### [facility] [address] [place] [address] Justina Jovita Color (U) YELLOW Normal YELLOW [facility] Comment on above: Performed By: #### DESIREE BRITO #### [facility] [address] [place], [place] [id number] Justina Jovita ERUAHD A micrscopic examination will be performed if indicated. Normal [facility] Comment on above: Performed By: #### DESIREE BRITO #### [facility] [address] [place] [address] Justina Jovita Glucose Ql (U) Negative Normal NEGATIVE The [facility] Comment on above: Performed By: #### DESIREE BRITO #### [facility] [address] [place] [address] Justina Jovita Hemoglobin Ql (U) Negative Normal NEGATIVE The [facility] Comment on above: Performed By: #### DESIREE BRITO #### [facility] [address] [place], [place] [address] Justina Jovita Ketones Ql (U) Negative Normal NEGATIVE The [facility] Comment on above: Performed By: #### LILIANA BRITORO #### [facility] [address] [place], [place] [id number] Justina Jovtia LEUKOCYTES SMALL Abnormal NEGATIVE [facility] Comment on above: Performed By: #### LILIANA BRITORO #### [facility] [address] [place], [place] [id number] Justina Jovita Nitrite Ql (U) Negative Normal NEGATIVE [facility] Comment on above: Performed By: #### LILIANA BRITORO #### [facility] [address] [place], [place] [phone] Justina Jovita pH (U) 5.0 [pH] Normal 5-9 [facility] Comment on above: Performed By: #### LILIANA BRITORO #### [facility] [address] [place] [address] Justina Jovita SPEC GRAVITY >=1.030 Abnormal 1.005-<=1.025 [facility] Comment on above: Performed By: #### LILIANA BRITORO #### [facility] [address] [place] [address] Justina Jovita UA PROTEIN Negative Normal NEGATIVE/ TRACE The [facility] Comment on above: Performed By: #### LILIANA BRITORO #### [facility] [address] [place], [place] [id number] Justinajoselyn Chairezen UR MICRO IND INDICATED Normal [facility] Comment on above: Performed By: #### LILIANA BRITORO #### [facility] [address] [place] [address] Justina Jovita Urobilinogen Qn (U) 0.2 {Juan'U}/dL Normal 0.2 - 1. 0 [facility] Comment on above: Performed By: #### Stalin CROSS UMDONALRO #### [facility] [address] [place] [address] Justina Jovita LACTATE/LACTIC ACIDon 2020 Lactate [Moles/Vol] 3.5 mmol/L Critically high 0.7-2.0 [facility] Comment on above: Result Comment: test repeated, critical value verified Performed By: #### L ACT #### [facility] [address] [place], [place] [id number] Justina Hussein Lactate [Moles/Vol] 3.7 mmol/L Critically high 0.7-2.0 [facility] Comment on above: Result Comment: test repeated, critical value verified Performed By: #### C BC #### [facility] [address] [place], [place] [id number] Justinajoselyn Hussein LIPASEon 02-16-2021 Lipase [Catalytic activity/Vol] 173.0 U/L Normal 23.0-300.0 [facility] Comment on above: Performed By: #### C BC #### [facility] [address] [place] [address] Justina Hussein POINT OF CARE GLUCOSEon 02-04 Glucose [Mass/Vol] 187 mg/dL Critically high 74-106 [facility] Comment on above: Performed By: #### P OCGLUC #### [facility] [address] [place], [place] [id number] Justina Jovita PROF 14(COMP METB)on 021 Albumin [Mass/Vol] 4.4 g/dL Normal 3.5-5.0 [facility] Comment on above: Performed By: #### C BC #### [facility] [address] [place], [place] [id number] Justinajoselyn Hussein Albumin/Globulin [Mass ratio] 1.1 {ratio} Normal [facility] Comment on above: Performed By: #### C BC #### [facility] [address] [place], [place] [id number] Justina Jovita ALP [Catalytic activity/Vol] 51 U/L Normal 38-126 [facility] Comment on above: Performed By: #### C BC #### [facility] [address] [place], [place] [id number] Justina Jovita ALT [Catalytic activity/Vol] 32 U/L Normal 9-52 [facility] Comment on above: Performed By: #### C BC #### [facility] [address] [id number] Justina Jovita Anion gap [Moles/Vol] 14.8 mmol/L Normal [facility] Comment on above: Performed By: #### C BC #### [facility] [address] [id number] Justina Jovita AST [Catalytic activity/Vol] 40 U/L Critically high 14-36 [facility] Comment on above: Performed By: #### C BC #### [facility] [address] [id number] Justina Jovita Bilirubin [Mass/Vol] 0.7 mg/dL Normal 0.2-1.3 [facility] Comment on above: Performed By: #### C BC #### [facility] [address] [place] [address] Justina Jovita Calcium [Mass/Vol] 9.6 mg/dL Normal 8.4-10.2 [facility] Comment on above: Performed By: #### C BC #### [facility] [address] [place] [address] Justina Jovita Chloride [Moles/Vol] 99 mmol/L Normal 98-107 [facility] Comment on above: Performed By: #### C BC #### [facility] [address] [place], [place] [id number] Justina Jovita CO2 [Moles/Vol] 29.3 mmol/L Normal 22.0-30.0 The [facility] Comment on above: Performed By: #### C BC #### [facility] [address] [phone] Justina Jovita Creatinine [Mass/Vol] 1.64 mg/dL Critically high 0.52-1.04 [facility] Comment on above: Performed By: #### C BC #### [facility] [address] [place], [place] [address] Justina Jovita EGFR-AF TOGOLESE 36 mL/min/1.73m2 Critically low >=60 [facility] Comment on above: Performed By: #### C BC #### [facility] [address] [place], [place] [address] Justina Jovita EGFR-NON AF TOGOLESE 30 mL/min/1.73m2 Critically low >=60 [facility] Comment on above: Performed By: #### C BC #### [facility] [address] [place] [id number] Justina Jovita Globulin (S) [Mass/Vol] 4.0 g/dL Normal [facility] Comment on above: Performed By: #### C BC #### [facility] [address] [place], [place] [address] Justina Jovita Glucose [Mass/Vol] 185 mg/dL Critically high 74-106 [facility] Comment on above: Performed By: #### C BC #### [facility] [address] [place], [place] [phone] Justina Jovita Potassium [Moles/Vol] 4.1 mmol/L Normal 3.4-5.0 [facility] Comment on above: Performed By: #### C BC #### [facility] [address] [place], [place] [phone] Justina Jovita Protein [Mass/Vol] 8.4 g/dL Critically high 6.1-8.2 [facility] Comment on above: Performed By: #### C BC #### [facility] [address] [place], [place] [phone] Justina Jovita Sodium [Moles/Vol] 139 mmol/L Normal 137-145 [facility] Comment on above: Performed By: #### C BC #### [facility] [address] [place], [place] [address] Justina Jovita Urea nitrogen [Mass/Vol] 29.0 mg/dL Critically high 7.0-17.0 [facility] Comment on above: Performed By: #### C BC #### [facility] [address] [place] [address] Justina Jovita Urea nitrogen/Creatinine [Mass ratio] 17.7 mg/mg Normal [facility] Comment on above: Performed By: #### C BC #### [facility] [address] [place] [address] Justina Jovita PROTIMEon 02-16-2021 INR Coag (PPP) [Relative time] 1.05 {INR} Normal [facility] Comment on above: Performed By: #### P TT, PT #### [facility] [address] [place], [place] [phone] Justinajoselyn Hussein INR GUIDELINES SEE BELOW Normal [facility] Comment on above: Result Comment: ROSELIA RED INR: 2.0 - 3.0 CONDITIONS NOT LISTED BELOW 2.5 - 3.5 FOR PROSTHETIC HEART VALVE REPLACEMENT 2.5 - 3.5 RECURRENT THROMBOSIS Performed By: #### P TT, PT #### [facility] [address] [place], [place] [phone] Justinajoselyn Hussein PT Coag (PPP) [Time] 11.4 s Normal 9.0-11.6 [facility] Comment on above: Performed By: #### P TT, PT #### [facility] [address] [place] [address] Justina Hussein PTTon 02-16-2021 aPTT Coag (Bld) [Time] 24.1 s Normal 22.3-36.2 [facility] Comment on above: Performed By: #### P TT, PT #### [facility] [address] [place], [place] [phone] Justina Hussein TROPONIN, HIGH SENSITIVITYon 02-16-2021 HSTROP 6.2 pg/mL Normal 4.0-35.5 [facility] Comment on above: Result Comment: CUT- OFF POINTS HAVE BEEN ESTABLISHED BASED ON THE FOURTH UNIVERSAL DEFINITIONS OF MYOCARDIAL INFARCTION. THE UPPER REFERENCE LIMIT (URL) OF TROPONIN, DEFINED THE 99TH PERCENTILE OF cTnI DISTRIBUTION IN A REFERENCE POPULATION, HAS BEEN CONFIRMED THE DECISION THRESHOLD FOR PA DIAGNOSIS. Performed By: #### C BC #### [facility] [address] [place] [address] Justina Jovita URINE MICROSCOPIC ONLYon BACTERIA TRACE Abnormal NONE SEEN The [facility] Comment on above: Performed By: #### E DESIREE CROSS #### [facility] [address] [place] [phone] Justina Hussein Bacteria identified Cx Nom (U) INDICATED Normal [facility] Comment on above: Performed By: #### E DESIREE CROSS #### [facility] [address] [address] Justina Jovita CAST SEEN Abnormal NONE SEEN The [facility] Comment on above: Performed By: #### DESIREE BRITO #### [facility] [address] [place], [place] [phone] Justina Jovita Crystals LM Nom (Urine sed) NONE SEEN Normal NONE SEEN The [facility] Comment on above: Performed By: #### DESIREE BRITO #### [facility] [address] [place] [address] Justina Jovita Epithelial cells LM Ql (Urine sed) FEW Abnormal NONE SEEN /RARE The [facility] Comment on above: Performed By: #### DESIREE BRITO #### [facility] [address] [place] [address] Justina Jovita MUCOUS NONE SEEN Normal NONE SEEN The [facility] Comment on above: Performed By: #### DESIREE BRITO #### [facility] [address] [place] [address] Justina Jovita RBC 2-5 Abnormal 0-2 [facility] Comment on above: Performed By: #### DESIREE BRITO #### [facility] [address] [place] [address] Justina Jovita WBC 20-50 Abnormal NONE SEEN The [facility] Comment on above: Performed By: #### DESIREE BRITO #### [facility] [address] [place], [place] [phone] Justina Jovita XR CHEST 2 Von 02-16-2021 XR CHEST 2 V EXAM: XR CHEST 2 V HISTORY: NAUSEA WITH VOMITING, UNSPECIFIED COMPARISON: None. TECHNIQUE: PA and lateral views FINDINGS: Lungs are clear. Cardiac silhouette is normal. No pleural effusion or pneumothorax. Degenerative changes both shoulders. No acute osseous findings. IMPRESSION: No acute process. Electronically authenticated by: TEJAS LAURA Date: 2021-02-16 17:49 Normal [facility] Vital Signs Date Time Vital Sign Value Performing Clinician Facility 02-21-2025 13:04-0400 Body mass index (BMI) [Ratio] 26.53 kg/m2 Chloe Aichholz GOVERNMENT PROPERTY INSPECTOR Work Phone: [facility] 02-21-2025 13:04-0400 Body temperature 98.71 [degF] Chloe Burgosholz GOVERNMENT PROPERTY INSPECTOR Work Phone: [facility] 02-21-2025 13:04-0400 Body weight 71.22 kg Chloejeet Burgosholz GOVERNMENT PROPERTY INSPECTOR Work Phone: [facility] 02-21-2025 13:04-0400 Diastolic blood pressure 74 mm[Hg] Chloe Lorettaholz GOVERNMENT PROPERTY INSPECTOR Work Phone: [facility] 02-21-2025 13:04-0400 Heart rate 63 /min Chloe Lorettaholz GOVERNMENT PROPERTY INSPECTOR Work Phone: [facility] 02-21-2025 13:04-0400 Respiratory rate 18 /min Chloejeet Burgosholz GOVERNMENT PROPERTY INSPECTOR Work Phone: [facility] 02-21-2025 13:04-0400 SaO2% (BldA) [Mass fraction] 98 % Chloe Najmaz GOVERNMENT PROPERTY INSPECTOR Work Phone: [facility] 02-21-2025 13:04-0400 Systolic blood pressure 136 mm[Hg] Chloe Lorettaholz GOVERNMENT PROPERTY INSPECTOR Work Phone: [facility] 10-10-2024 13:10-0500 Body height 163.8 cm Chloe Lorettaholz GOVERNMENT PROPERTY INSPECTOR Work Phone: [facility] 10-10-2024 13:10-0500 Body mass index (BMI) [Ratio] 25.92 kg/m2 Chloe Lorettaholz GOVERNMENT PROPERTY INSPECTOR Work Phone: [facility] 10-10-2024 13:10-0500 Body temperature 98.8 [degF] Chloe Lorettaholz GOVERNMENT PROPERTY INSPECTOR Work Phone: [facility] 10-10-2024 13:10-0500 Body weight 69.58 kg Chloe Symonehholz GOVERNMENT PROPERTY INSPECTOR Work Phone: [facility] 10-10-2024 13:10-0500 Diastolic blood pressure 82 mm[Hg] Chloe Lorettaholz GOVERNMENT PROPERTY INSPECTOR Work Phone: [facility] 10-10-2024 13:10-0500 Heart rate 93 /min Chloe Aichholz GOVERNMENT PROPERTY INSPECTOR Work Phone: [facility] 10-10-2024 13:10-0500 Respiratory rate 18 /min Chloe Aichholz GOVERNMENT PROPERTY INSPECTOR Work Phone: [facility] 10-10-2024 13:10-0500 SaO2% (BldA) [Mass fraction] 99 % Chloe Symonehholz GOVERNMENT PROPERTY INSPECTOR Work Phone: [facility] 10-10-2024 13:10-0500 Systolic blood pressure 138 mm[Hg] Chloe Aichholz GOVERNMENT PROPERTY INSPECTOR Work Phone: [facility] 07-04-2024 13:32-0400 Body height 163.8 cm Chloe Symonehholz GOVERNMENT PROPERTY INSPECTOR Work Phone: [facility] 07-04-2024 13:32-0400 Body mass index (BMI) [Ratio] 25.25 kg/m2 Chloe Symonehholz GOVERNMENT PROPERTY INSPECTOR Work Phone: [facility] 07-04-2024 13:32-0400 Body temperature 98.29 [degF] Chloe Symonehholz GOVERNMENT PROPERTY INSPECTOR Work Phone: [facility] 07-04-2024 13:32-0400 Body weight 67.77 kg Chloe Symonehholz GOVERNMENT PROPERTY INSPECTOR Work Phone: [facility] 07-04-2024 13:32-0400 Diastolic blood pressure 76 mm[Hg] Chloe Aichholz GOVERNMENT PROPERTY INSPECTOR Work Phone: [facility] 07-04-2024 13:32-0400 Heart rate 101 /min Chloe Aichholz GOVERNMENT PROPERTY INSPECTOR Work Phone: [facility] 07-04-2024 13:32-0400 Respiratory rate 18 /min Chloe Aichholz GOVERNMENT PROPERTY INSPECTOR Work Phone: [facility] 07-04-2024 13:32-0400 SaO2% (BldA) [Mass fraction] 96 % Chloe Colmenares GOVERNMENT PROPERTY INSPECTOR Work Phone: [facility] 07-04-2024 13:32-0400 Systolic blood pressure 128 mm[Hg] Chloe Dedra GOVERNMENT PROPERTY INSPECTOR Work Phone: [facility] 05-19-2024 07:57-0400 Body temperature 98.2 [degF] Tomasa Moctezuma DO Work Phone: [facility] 05-19-2024 07:57-0400 Diastolic blood pressure 65 mm[Hg] Tomasa Moctezuma DO Work Phone: [facility] 05-19-2024 07:57-0400 Heart rate 94 /min Tomasa Moctezuma DO Work Phone: [facility] 05-19-2024 07:57-0400 Respiratory rate 18 /min Tomasa Moctezuma DO Work Phone: [facility] 05-19-2024 07:57-0400 SaO2% (BldA) [Mass fraction] 99 % Tomasa Moctezuma DO Work Phone: [facility] 05-19-2024 07:57-0400 Systolic blood pressure 136 mm[Hg] Tomasa Moctezuma DO Work Phone: [facility] 05-17-2024 09:58-0400 Body height 163.8 cm Tomasa Moctezuma DO Work Phone: [facility] 05-17-2024 09:58-0400 Body mass index (BMI) [Ratio] 24 kg/m2 Tomasa Moctezuma DO Work Phone: [facility] 05-17-2024 09:58-0400 Body weight 64.41 kg Tomasa Moctezuma DO Work Phone: [facility] 04-26-2024 13:03-0400 Body height 163.8 cm Chloe Colmenares GOVERNMENT PROPERTY INSPECTOR Work Phone: [facility] 04-26-2024 13:03-0400 Body mass index (BMI) [Ratio] 24.47 kg/m2 Chloe Colmenares GOVERNMENT PROPERTY INSPECTOR Work Phone: [facility] 04-26-2024 13:03-0400 Body temperature 98.29 [degF] Chloe Colmenares GOVERNMENT PROPERTY INSPECTOR Work Phone: [facility] 04-26-2024 13:03-0400 Body weight 65.68 kg Chloe Colmenares GOVERNMENT PROPERTY INSPECTOR Work Phone: [facility] 04-26-2024 13:03-0400 Diastolic blood pressure 66 mm[Hg] Chloe Colmenares GOVERNMENT PROPERTY INSPECTOR Work Phone: [facility] 04-26-2024 13:03-0400 Heart rate 100 /min Chloe Colmenares GOVERNMENT PROPERTY INSPECTOR Work Phone: [facility] 04-26-2024 13:03-0400 Respiratory rate 18 /min Chloe Colmenares GOVERNMENT PROPERTY INSPECTOR Work Phone: [facility] 04-26-2024 13:03-0400 SaO2% (BldA) [Mass fraction] 99 % Chloe Colmenares GOVERNMENT PROPERTY INSPECTOR Work Phone: [facility] 04-26-2024 13:03-0400 Systolic blood pressure 110 mm[Hg] Chloe Colmenares GOVERNMENT PROPERTY INSPECTOR Work Phone: [facility] 04-25-2024 11:07-0400 Body height 163.8 cm Tomasa Fariasston DO Work Phone: [facility] 04-25-2024 11:07-0400 Body mass index (BMI) [Ratio] 24.34 kg/m2 Tomasa Hebron DO Work Phone: [facility] 04-25-2024 11:07-0400 Body weight 65.32 kg Tomasa Hebron DO Work Phone: [facility] 04-21-2024 10:05-0400 Body height 163.[address] 04-21-2024 10:05-0400 Body mass index (BMI) [Ratio] 24.34 kg/m2 [facility] 1 [facility] 04-21-2024 10:0400 Body weight 65.32 kg Pm 1 [facility] Encounters Encounter Date Encounter Type Care Provider Facility Start: 04-04-2025 End: 04-04-2025 Refill Chloe Dedra GOVERNMENT PROPERTY INSPECTOR Work Phone: [facility] Comment on above: 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 pain and lower extremity pain Start: 03-14-2025 End: 03-14-2025 Refill Chloe Najmaz GOVERNMENT PROPERTY INSPECTOR Work Phone: [facility] Comment on above: 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 pain and lower extremity pain Start: 03-12-2025 End: 03-12-2025 Refill Chloe Dedra GOVERNMENT PROPERTY INSPECTOR Work Phone: [facility] Comment on above: Memory impairment of gradual onset; Other hyperlipidemia Start: 02-21-2025 End: 02-21-2025 Bamboo flowsheet Chloe Dedra GOVERNMENT PROPERTY INSPECTOR Work Phone: [facility] Start: 02-21-2025 End: 02-21-2025 Bamboo flowsheet Chloe Dedra GOVERNMENT PROPERTY INSPECTOR Work Phone: [facility] Start: 02-21-2025 End: 02-21-2025 Office outpatient visit 25 minutes Chloe Colmenares GOVERNMENT PROPERTY INSPECTOR Work Phone: [facility] Comment on above: 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 pain and lower extremity pain (Primary Dx); Essential hypertension ; Chronic kidney disease, stage 3b (CMS-HCC); 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, unspecified type; Memory impairment of gradual onset; Other hyperlipidemia Start: 02-21-2025 End: 02-21-2025 ambulatory CHLOE AICHHOLZ Not Available Start: 12-12-2024 End: 12-12-2024 Clinisync Result Encounter Generic External Data Provider [facility] External Department Unsolicited Start: 12-12-2024 End: 12-12-2024 Clinisync Result Encounter Generic External Data Provider [facility] External Department Unsolicited Start: 11-21-2024 End: 11-21-2024 ambulatory CHLOE DEDRA Not Available Start: 11-02-2024 End: 11-02-2024 Office outpatient visit 15 minutes Willard Venegas MD Work Phone: [facility] Comment on above: Seborrheic keratosis (Primary Dx); Lentigines; Herpesviral vesicular dermatitis Start: 11-02-2024 End: 11-02-2024 ambulatory WILLARD VENEGAS Not Available Start: 11-02-2024 End: 11-02-2024 Bamboo flowsheet Willard Venegas MD Work Phone: [facility] Start: 11-02-2024 End: 11-02-2024 Bamboo flowslissa Venegas MD Work Phone: [facility] Start: 10-16-2024 End: 10-16-2024 Clinisync Result Encounter Chloe Dedra GOVERNMENT PROPERTY INSPECTOR Work Phone: [facility] External Department Unsolicited Start: 10-16-2024 End: 10-16-2024 Clinisync Result Encounter Chloe Dedra GOVERNMENT PROPERTY INSPECTOR Work Phone: [facility] External Department Unsolicited Start: 10-13-2024 End: 10-13-2024 Telephone encounter Chloe Dedra GOVERNMENT PROPERTY INSPECTOR Work Phone: [facility] Start: 10-12-2024 End: 10-12-2024 ambulatory BRENNEN NAGEL Not Available Start: 10-12-2024 End: 10-12-2024 Bamboo flowsheet Brennen Nagel GOVERNMENT PROPERTY INSPECTOR Work Phone: [facility] Start: 10-12-2024 End: 10-12-2024 Bamboo flowsheet Brennen Nagel GOVERNMENT PROPERTY INSPECTOR Work Phone: [facility] Start: 10-12-2024 End: 10-12-2024 Office outpatient visit 15 minutes Brennen Nagel GOVERNMENT PROPERTY INSPECTOR Work Phone: [facility] Comment on above: S/P total left hip a rthroplasty (Primary Dx); Left hip pain Start: 10-10-2024 End: 10-10-2024 Bamboo flowsheet Chloe Colmenares GOVERNMENT PROPERTY INSPECTOR Work Phone: [facility] Start: 10-10-2024 End: 10-10-2024 Bamboo flowsheet Chloe Colmenares GOVERNMENT PROPERTY INSPECTOR Work Phone: [facility] Start: 10-10-2024 End: 10-10-2024 Office outpatient visit 25 minutes Chloe Colmenares GOVERNMENT PROPERTY INSPECTOR Work Phone: [facility] Comment on above: Essential hypertensi on [...] Memory impairment of gradual onset; Other hyperlipidemia (CMS/HCC) Start: 10-10-2024 End: 10-10-2024 Refill Chloe Colmenares GOVERNMENT PROPERTY INSPECTOR Work Phone: [facility] Comment on above: 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 pain and lower extremity pain (Primary Dx) Start: 07-10-2024 End: 07-10-2024 ambulatory Daniela Nathan MD Facility:[facility] Start: 07-04-2024 End: 07-04-2024 Bamboo flowsheet Chloe Colmenares GOVERNMENT PROPERTY INSPECTOR Work Phone: [facility] Start: 07-04-2024 End: 07-04-2024 Bamboo flowsheet Chloe Colmenares GOVERNMENT PROPERTY INSPECTOR Work Phone: [facility] Start: 07-04-2024 End: 07-04-2024 Office outpatient visit 25 minutes Chloe Colmenares NP Work Phone: [facility] Comment on above: 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) (Primary Dx); Chronic kidney disease, stage 3b (HCC) (CMS/HCC); Unspecified dementia, unspecified severity, without behavioral disturbance, psychotic disturbance, mood disturbance, and anxiety (CMS/HCC); Degeneration of intervertebral disc of lumbar region, unspecified whether pain present; Needs flu shot Start: 07-04-2024 End: 07-04-2024 ambulatory CHLOE COLMENARES Not Available Start: 06-27-2024 End: 06-27-2024 Bamboo flowsheet Tomasa Moctezuma DO Work Phone: [facility] Start: 06-27-2024 End: 06-27-2024 Bamboo flowsheet Tomasa Moctezuma DO Work Phone: [facility] Start: 06-27-2024 End: 06-27-2024 Clinisync Result Encounter Chloe Colmenares NP Work Phone: [facility] External Department Unsolicited Start: 06-27-2024 End: 06-27-2024 ambulatory TOMASA MOCTEZUMA Not Available Start: 06-27-2024 End: 06-27-2024 Postop follow up visit related to original px Tomasa Moctezuma DO Work Phone: [facility] Comment on above: Primary osteoarthrit is of left hip (Primary Dx); S/P total left hip arthroplasty Start: 06-09-2024 End: 06-09-2024 Refill Chloe Colmenares GOVERNMENT PROPERTY INSPECTOR Work Phone: [facility] Comment on above: Cardiac arrhythmia d ue to premature depolarization, unspecified type Start: 06-08-2024 End: 06-08-2024 Telephone encounter Chloe Colmenares NP Work Phone: [facility] FM Comment on above: Med Refill Start: 05-30-2024 End: 05-30-2024 Bamboo flowsheet Tomasa Moctezuma DO Work Phone: [facility] Start: 05-30-2024 End: 05-30-2024 Bamboo flowsheet Tomasa Moctezuma DO Work Phone: [facility] Start: 05-30-2024 End: 05-30-2024 Refill Chloe Colmenares GOVERNMENT PROPERTY INSPECTOR Work Phone: [facility] Comment on above: Cardiac arrhythmia d ue to premature depolarization, unspecified type; Memory impairment of gradual onset; Other hyperlipidemia (CMS/HCC); Essential hypertension (CMS/HCC) Start: 05-30-2024 End: 05-30-2024 Postop follow up visit related to original px Tomasa Moctezuma DO Work Phone: [facility] Comment on above: S/P total left hip a rthroplasty (Primary Dx) Start: 05-30-2024 End: 05-30-2024 ambulatory TOMASA MOCTEZUMA Not Available Start: 05-25-2024 End: 05-25-2024 Postop follow up visit related to original px Tomasa Moctezuma DO Work Phone: [facility] Comment on above: S/P total left hip a rthroplasty (Primary Dx) Start: 05-25-2024 End: 05-25-2024 ambulatory TOMASA MOCTEZUMA Not Available Start: 05-25-2024 ambulatory MARY Coyle A vibha Start: 05-24-2024 End: 05-24-2024 Clinical Support Mary Mckoy PT Work Phone: [facility] Comment on above: Status post left hip replacement (Primary Dx); Acute postoperative pain of left hip; Difficulty walking; Primary osteoarthritis of left hip Start: 05-23-2024 End: 05-23-2024 ambulatory MARY MCKOY Not Available Start: 05-22-2024 End: 05-22-2024 Clinical Support Mary Mckoy PT Work Phone: [facility] Comment on above: Status post left hip replacement (Primary Dx); Acute postoperative pain of left hip; Difficulty walking; Primary osteoarthritis of left hip Start: 05-20-2024 End: 05-20-2024 Clinical Support Mary Mckoy PT Work Phone: [facility] Comment on above: Status post left hip replacement (Primary Dx); Acute postoperative pain of left hip; Difficulty walking; Primary osteoarthritis of left hip Start: 05-19-2024 End: 05-19-2024 Telephone encounter Brennen Nagel GOVERNMENT PROPERTY INSPECTOR Work Phone: 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 ([facility]); Status post total hip replacement, left Start: 05-16-2024 Preprocedural examin ation done Tomasa Moctezuma DO Work Phone: [facility] Start: 05-16-2024 End: 05-16-2024 Telephone encounter Tomasa Jeet Jose Elias DO Work Phone: [facility] Start: 05-16-2024 Encounter for other preprocedural examination [facility] Start: 05-15-2024 End: 05-15-2024 ambulatory [facility] JOSE ELIAS [facility] Comment on above: Primary osteoarthrit is of left hip (Primary Dx) Start: 05-01-2024 End: 05-01-2024 Refill Chloe Colmenares GOVERNMENT PROPERTY INSPECTOR Work Phone: [facility] Comment on above: Chronic low back ankit n, unspecified back pain laterality, unspecified whether sciatica present (Primary Dx) Start: 04-28-2024 End: 04-28-2024 Refill Chloe Colmenares GOVERNMENT PROPERTY INSPECTOR Work Phone: [facility] Comment on above: Essential hypertensi on (CMS/HCC) Start: 04-26-2024 End: 04-26-2024 Bamboo flowsheet Chloe Colmenares GOVERNMENT PROPERTY INSPECTOR Work Phone: [facility] Start: 04-26-2024 End: 04-26-2024 Bamboo flowsheet Chloe Colmenares GOVERNMENT PROPERTY INSPECTOR Work Phone: [facility] Start: 04-26-2024 End: 04-26-2024 ambulatory CHLOE COLMENARES Not Available Start: 04-26-2024 End: 04-26-2024 Office outpatient visit 25 minutes Chloe Colmenares GOVERNMENT PROPERTY INSPECTOR Work Phone: [facility] Comment on above: Preoperative clearan ce (Primary Dx); Type 2 diabetes mellitus with diabetic chronic kidney disease (HCC) (CMS/[facility]); Chronic kidney disease, stage 3b (HCC) ([facility]); Unspecified dementia, unspecified severity, without behavioral disturbance, psychotic disturbance, mood disturbance, and anxiety ([facility]); Essential hypertension ([facility]) Start: 04-26-2024 End: 04-26-2024 Preoperative state Chloe Colmenares GOVERNMENT PROPERTY INSPECTOR Work Phone: [facility] Healthcare Start: 04-25-2024 End: 04-25-2024 Bamboo flowsheet Brennen Nagel GOVERNMENT PROPERTY INSPECTOR Work Phone: [facility] Start: 04-25-2024 End: 04-25-2024 Bamboo flowsheet Brennen Nagle GOVERNMENT PROPERTY INSPECTOR Work Phone: [facility] Start: 04-25-2024 End: 04-25-2024 Office outpatient visit 40 minutes Tomasa Moctezuma DO Work Phone: [facility] Comment on above: Primary osteoarthrit is of left hip (Primary Dx); Left hip pain Start: 04-25-2024 End: 04-25-2024 ambulatory BRENNEN NAGEL Not Available Start: 04-21-2024 End: 04-21-2024 ambulatory TOMASA Jeet TORRESJOSE ELIAS [facility] Start: 04-21-2024 End: 04-21-2024 Patient encounter procedure h Pre-Admission Testing 1 [facility] - Pre Admit Start: 04-13-2024 End: 04-13-2024 ambulatory ENEDINA PHELPS Not Available Start: 03-23-2024 End: 03-23-2024 ambulatory TOMASA TORRESDLESTON Not Available Start: 02-29-2024 End: 02-29-2024 ambulatory CHLOE COLMENARES Not Available Start: 10-26-2023 Patient encounter procedure Brennen Nagel GOVERNMENT PROPERTY INSPECTOR Work Phone: [facility] Start: 07-15-2021 End: 07-16-2021 ambulatory DEANGELO JONES Facility:H1 Start: 03-11-2021 End: 03-12-[address] YIMI INMAN Facility:[facility] Start: 02-19-2021 End: 02-19-2021 ambulatory JUAN DENISE Facility:[facility] Start: 02-16-2021 End: 02-16-2021 ambulatory MELI FREGOSO Facility:[facility] Start: 12-10-2020 End: 12-11-2020 ambulatory NONE LISTED REQUEST Facility:[facility]1 Start: 11-18-2020 End: 11-19-2020 ambulatory NONE LISTED REQUEST Facility:[facility]1 Procedures Date Procedure Procedure Detail Performing Clinician Start: 12-12-2024 MR LUMBAR SPINE WO CON Generic External Data Provider Start: 10-16-2024 ALL CBC WITH AUTO DIFF Chloe Colmenares GOVERNMENT PROPERTY INSPECTOR Work Phone: Start: 10-12-2024 Radex hip unilateral with pelvis 2-3 views Brennen Nagel GOVERNMENT PROPERTY INSPECTOR Work Phone: Start: 10-10-2024 Hemoglobin glycosyla john a1c Chloe Colmenares GOVERNMENT PROPERTY INSPECTOR Work Phone: Start: 06-27-2024 ALL BASIC METABOLIC PANEL Chloe Colmenares GOVERNMENT PROPERTY INSPECTOR Work Phone: Start: 06-27-2024 Radex hip unilateral with pelvis 2-3 views Tomasa Moctezuma DO Work Phone: Start: 05-17-2024 Radex hip unilateral with pelvis 2-3 views Tomasa Moctezuma DO Work Phone: Plan of Treatment Date Care Activity Detail Author Start: 01-15-2027 Glaucoma screening Diabetes: Retinopathy Screening [facility] Healthcare Start: 11-21-2026 Glaucoma screening Diabetes: Retinopathy Screening [facility] Start: 11-01-2025 End: 11-01-2025 Patient encounter procedure [facility] Start: 05-10-2025 End: 05-10-2025 Patient encounter procedure [facility] Start: 05-08-2025 End: 05-08-2025 Patient encounter procedure 05/08/2025 3:30 PM EDT Office Visit [facility] [address] [place] [address] Chloe Colmenares NP [address] [place] [phone] [facility] Start: 05-07-2025 Influenza vaccination Influenza Vaccine (#1) [facility] Start: 04-21-2025 Adult BMI Screening Adult BMI Screening [facility] Start: 04-21-2025 Tobacco Screening Tobacco Screening [facility] Start: 04-09-2025 Hemoglobin A1c measurement Diabetes: Hemoglobin A1C [facility] Start: 04-04-2025 End: 04-04-2025 Patient encounter procedure 04/04/2025 2:20 PM EDT Office Visit [facility] [address] [place] [address] Chloe Colmenares, GOVERNMENT PROPERTY INSPECTOR [address] [place] [phone] [facility] Start: 03-01-2025 Urine screening for protein Diabetes: Urine Protein Screening [facility] Healthcare Start: 02-21-2025 End: 02-21-2025 Patient encounter procedure 02/21/2025 1:00 PM EDT Office Visit [facility] [address] [place] [address] Chloe Colmenares NP [address] [place] [phone] [facility] Start: 01-22-2025 End: 01-22-2025 Patient encounter procedure 01/22/2025 11:30 AM EDT Office Visit [facility] [address] [place] [address] Willard Venegas MD [address] [place] [address] [facility] Start: 01-07-2025 Hemoglobin A1c measurement Diabetes: Hemoglobin A1C [facility] Start: 11-21-2024 End: 11-21-2024 Patient encounter procedure 11/21/2024 1:00 PM EDT Office Visit [facility] [address] [place] [address] Chloe Colmenares NP [address] [place] [phone] [facility] Start: 11-02-2024 End: 11-02-2024 Patient encounter procedure [facility] Comment on above: Arrived Start: 10-12-2024 End: 10-12-2024 Patient encounter procedure 10/12/2024 2:00 PM EST Office Visit [facility] [address] [place] [phone] Brennen Nagel NP [address] [place], [place] [phone] [facility] Start: 10-10-2024 End: 10-10-2025 Basic metabolic 1998 panel - Serum or Plasma Basic metabolic panel Lab Routine Chronic kidney disease, stage 3b (HCC) (CMS/HCC) Expected: 10/10/2024 (Approximate), Expires: 10/10/2025 [facility] Healthcare Comment on above: Expected: 10/10/2024 (Approximate), Expi res: 10/10/2025 Start: 10-10-2024 End: 10-10-2025 CBC W Auto Differential panel - Blood CBC and differential Lab Routine Chronic kidney disease, stage 3b (HCC) (CMS/HCC) Expected: 10/10/2024 (Approximate), Expires: 10/10/2025 [facility] Healthcare Work Phone: Comment on above: Expected: 10/10/2024 (Approximate), Expi res: 10/10/2025 Start: 10-10-2024 End: 10-10-2024 Patient encounter procedure 10/10/2024 1:00 PM EST Office Visit [facility] [address] [place] [phone] Chloe Colmenares, RADHA [address] [place] [phone] [facility] Start: 08-14-2024 Hemoglobin A1c measurement Diabetes: Hemoglobin A1C [facility] Start: 08-08-2024 End: 08-08-2024 Patient encounter procedure 08/08/2024 11:00 AM EST Office Visit [facility] [address] [facility] [place] [address] Brennen Nagel, GOVERNMENT PROPERTY INSPECTOR [address] [place] [address] [facility] Start: 07-04-2024 End: 07-04-2024 Patient encounter procedure 07/04/2024 1:20 PM EDT [facility] [address] [place] [phone] Chloe Colmenares NP [address] [place] [phone] Degeneration of intervertebral disc of lumbar region, unspecified whether pain present (Primary Dx); Type 2 diabetes mellitus with diabetic chronic kidney disease (CMS/HCC); Chronic kidney disease, stage 3b (HCC) ([facility]/HCC); Unspecified dementia, unspecified severity, without behavioral disturbance, psychotic disturbance, mood disturbance, and anxiety ([facility]/HCC) [facility] Comment on above: Degeneration [...] [facility] [address] [place] [address] Tomasa Moctezuma, DO [address] [place] [address] [facility] Start: 06-21-2024 End: 06-21-2024 Patient encounter procedure 06/21/2024 1:40 PM EDT Office Visit [facility] [address] [place] [address] Chloe Colmenares NP [address] [place] [address] [facility] Start: 05-30-2024 End: 05-30-2024 Patient encounter procedure [facility] Comment on above: Arrived Start: 05-25-2024 End: 05-25-2024 Patient encounter procedure 05/25/2024 10:15 AM EDT Office Visit [facility] [address] [place] [phone] Tomasa Moctezuma, DO [address] [place] [address] [facility] Start: 05-22-2024 End: 05-22-2024 Patient encounter procedure 05/22/2024 1:20 PM EDT Office Visit [facility] [address] [place] [address] Chloe Colmenares NP [address] [place] [address] [facility] Start: 05-17-2024 End: 05-17-2024 Admission to same day surgery center 05/17/2024 11:45 AM EDT - 05/17/2024 3:15 PM EDT Surgery [facility] [address] [place] [phone] Tomasa Moctezuma, DO [address] [place] [address] REPLACEMENT TOTAL JOINT HIP ANTERIOR SUPINE INTERMUSCULAR [65881 (CPT )] [facility] Comment on above: REPLACEMENT TOTAL JOINT HIP ANTERIOR SUP INE INTERMUSCULAR [97763 (CPT )] Start: 05-17-2024 End: 05-17-2024 Arthrp acetblr/prox fem prostc agrft/algrft REPLACEMENT TOTAL JOINT HIP ANTERIOR SUPINE INTERMUSCULAR Degenerative Joint Disease Left Hip 05/17/2024 11:45 AM EDT [facility] Start: 05-17-2024 Subsequent hospital visit by physician 05/17/2024 11:45 AM EDT Hospital Encounter [facility] [address] [place] [phone] Tomasa Moctezuma, DO [address] [place] [address] [facility] Start: 05-17-2024 End: 05-17-2024 Patient encounter procedure 05/17/2024 8:30 AM EDT Procedure Visit [facility] Tomasa Moctezuma, DO [address] [place] [address] [facility] Start: 05-16-2024 End: 05-16-2024 Patient encounter procedure 05/16/2024 11:15 AM EDT Office Visit [facility] [address] [facility] [address] [place] [address] Tomasa Moctezuma DO [address] [facility] [address] [place] [address] [facility] Start: 05-07-2024 Influenza vaccination [facility] Start: 04-26-2024 End: 04-26-2026 Echocardiogram 2D complete Echocardiogram 2D complete Echocardiography STAT Type 2 diabetes mellitus with diabetic chronic kidney disease (HCC) ([facility]/HCC) Chronic kidney disease, stage 3b (HCC) ([facility]/HCC) Preoperative clearance Expected: 04/26/2024 (Approximate), Expires: 04/26/2026 [facility] Work Phone: Comment on above: Expected: 04/26/2024 (Approximate), Expi res: 04/26/2026 Start: 04-26-2024 End: 04-26-2024 Patient encounter procedure 04/26/2024 1:00 PM EDT Office Visit [facility] [address] [place] [address] Chloe Colmenares NP [address] [place] [address] [facility] Start: 04-25-2024 End: 04-25-2024 Patient encounter procedure 04/25/2024 11:00 AM EDT Office Visit [facility] [address] [facility] [address] [place] [address] Brennen Nagel, GOVERNMENT PROPERTY INSPECTOR [address] [place] [address] Primary osteoarthritis of left hip (Primary Dx); Left hip pain [facility] Comment on above: Primary osteoarthritis of left hip (Prim richard Dx); Left hip pain Start: 10-22-2023 Hemoglobin A1c measurement Diabetes: Hemoglobin A1C [facility] Start: 10-19-2023 COVID-19 Vaccine ( season) COVID-19 Vaccine ( season) [facility] Start: 12-18-2003 Fall Risk Screening Fall Risk Screening [facility] Start: 1988 Administration of varicella zoster vaccine Zoster (Shingles) Vaccine (1 of 2) [facility] Start: 1957 DTaP,Tdap and Td Vaccines (1 - Tdap) DTaP,Tdap and Td Vaccines (1 - Tdap) [facility] Start: 1950 Depression Screening Depression Screening [facility] Start: 1948 Glaucoma screening Diabetes: Retinopathy Screening [facility] Start: 1938 Medicare Annual Wellness Visit Medicare Annual Wellness Visit [facility] Immunizations Immunization Date Immunization Notes Care Provider [facility] 07-04-2024 Seasonal trivalent influenza vaccine, adjuvanted, preservative free Chloe Colmenares GOVERNMENT PROPERTY INSPECTOR Work Phone: [facility] 07-04-2024 influenza virus vacc ine, unspecified formulation Chloe Colmenares GOVERNMENT PROPERTY INSPECTOR Work Phone: [facility] 01-06-2024 Pneumococcal Conjuga te PCV 20 Brennen Nagel GOVERNMENT PROPERTY INSPECTOR Work Phone: [facility] 06-18-2023 Influenza, Seasonal, Quadrivalent, Adjuvanted Brennen Nagel NP Work Phone: [facility] 06-18-2023 influenza virus vacc ine, unspecified formulation Brennen Nagel NP Work Phone: [facility] 07-02-2022 Influenza, Seasonal, Quadrivalent, Adjuvanted Brennen Nagel GOVERNMENT PROPERTY INSPECTOR Work Phone: [facility] 06-13-2019 influenza, injectabl e, quadrivalent, preservative free Brennen Nagel NP Work Phone: [facility] 02-07-2018 pneumococcal polysaccharide vaccine, 23 valent Brennen Nagel GOVERNMENT PROPERTY INSPECTOR Work Phone: [facility] Payers Date Payer Category Payer Medicare [id number] 2023 Medicare (Managed Care) [employer] M [employer] ADVANTAGE Member Subscriber Plan / Payer (Effective 2023-Present) Name: Sandra Franklin Relation to Subscriber: Self Name: Sandra Franklin Payer ID: [id number] (NAIC) Type: Not on file Address: [place] [id number] 2023 Private Health Insurance 2022 Medicare [id number] 1959 Medicare [id number] 1959 Self-pay [id number] 1959 Unknown [id number] 1938 Unknown [id number] 2.16.840.1.988161.3.579.2 .593 1938 Unknown [id number] 2.16.840.1.468545.3.579.2 .593 1938 Unknown [id number] 2.16.840.1.090266.3.579.2 .593 1938 Unknown [id number] 2.16.840.1.301716.3.579.2 .1286 1938 Unknown [id number] 2.16.840.1.826078.3.579.2 .1286 1938 Unknown [id number] 2.16.840.1.423020.3.579.2 .1286 1938 Unknown [id number] 2.16.840.1.960244.3.579.2 .1286 1938 Unknown [id number] 2.16.840.1.475068.3.579.2 .1286 1938 Unknown [id number] 2.16.840.1.741265.3.579.2 .196 1938 Unknown [id number] 2.16.840.1.362996.3.579.2 .125 1938 Unknown [id number] 2.16.840.1.064502.3.579.2 .1258 1938 Unknown [id number] 2.16.840.1.359975.3.579.2 .1258 1938 Unknown [id number] 2.16.840.1.396247.3.579.2 .1258 1938 Unknown [id number] 2.16.840.1.828770.3.579.2 .1258 1938 Unknown [id number] 2.16.840.1.969814.3.579.2 .1258 1938 Unknown [id number] 2.16.840.1.800027.3.579.2 .1258 1938 Unknown [id number] 2.16.840.1.390241.3.579.2 .1258 1938 Unknown [id number] 2.16.840.1.129600.3.579.2 .1258 1938 Unknown [id number] 2.16.840.1.073450.3.579.2 .1258 1938 Unknown [id number] 2.16.840.1.768369.3.579.2 .1258 1938 Unknown [id number] 2.16.840.1.513336.3.579.2 .1258 1938 Unknown [id number] 2.16.840.1.861257.3.579.2 .1258 1938 Unknown [id number] 2.16.840.1.187819.3.579.2 .1258 1938 Unknown [id number] 2.16.840.1.101394.3.579.2 .1258 1938 Unknown [id number] 2.16.840.1.656086.3.579.2 .1258 1938 Unknown [id number] 2.16.840.1.730996.3.579.2 .1258 1938 Unknown [id number] 2.16.840.1.503223.3.579.2 .1258 1938 Unknown [id number] 2.16.840.1.793660.3.579.2 .1258 1938 Unknown [id number] 2.16.840.1.500009.3.579.2 .125 Unknown [id number] 2.16.840.1.838715.3.579.2 .593 Unknown [id number] 2.16.840.1.213302.3.579.2 .593 Unknown [id number] 2.16.840.1.635021.3.579.2 .593 Social History Date Type Detail Facility Start: 03-28-2020 End: 04-23-2023 Tobacco smoking status [facility] Never smoked tobacco [facility] Start: 03-28-2020 End: 04-23-2023 Tobacco use and exposure Smokeless tobacco non-user [facility] Start: 05-23-2024 End: 02-21-2025 Alcoholic beverage intake Lifetime non-drinker (finding) [facility] Start: 10-26-2023 End: 11-21-2024 History of Social function [facility] Start: 10-26-2023 End: 11-21-2024 Humiliation, Afraid, Rape, and Kick questionnaire [HARK] [...] at Not on file [facility] Start: 04-21-2024 End: 05-17-2024 Alcoholic beverage intake Current drinker of alcohol (finding) [facility] How often to you hav e a drink containing alcohol? Monthly or less [facility] How many standard dr inks containing alcohol do you have on a typical day? 1 or 2 [facility] Do you feel stress - tense, restless, nervous, or anxious, or unable to sleep at night because your mind is troubled all the time - these days [OSQ] To some extent [facility] Start: 03-28-2020 Alcohol Comment rare [facility] Medical Equipment Procedure Code Equipment Code Equipment Origin al Text Equipment Identifier Dates Linr Actb 52mm 3 6mm Altrx Hip - Sna - [id number] Start: 04-25-2020 Cup Actb 52mm Pn cl Sect Hip - Sna - [id number] Start: 04-25-2020 Stm Fem 150mm 12 mm Crl Amt Ti - Sna - [id number] Start: 04-25-2020 Hd Fem 36mm -2mm 08/19 Tpr - Sna - [id number] Start: 04-25-2020 Elmntr Hl Drlc P ncl Hip Mrthn - Sna - [id number] Start: 04-25-2020 Gabe-09/07/2005 [id number] Start: 09-07-2005 Scr Hip Canc Cnn Gription 15mm - Sna - [id number] Start: 04-25-2020 Scr Hip Canc Cnn Gription 30mm - Sna - [id number] Start: 04-25-2020 Cup Actb 54mm Pn cl Sect Hip - Sna - [id number] [id number]( 21)NA, [id number] FDA Start: 05-17-2024 Liner Actb 54mm 36mm Ntrl Altrx - Sna - [id number] [id number](2 1)NA, [id number] FDA Start: 05-17-2024 Stem Fem 150mm 1 2mm Crl Amt Ti - Sna - [id number] ()[id number] [id number]( 21)NA, [id number] FDA Start: 05-17-2024 Head Fem 36mm +1 .5mm 08/19 - Sna - [id number] ()[id number] [id number](21)NA, [id number] FDA Start: 05-17-2024 Elminator Hl Drl c Pncl Hip Mrthn - Sna - [id number] ()[id number] [id number])[id number](21)NA, [id number] FDA Start: 05-17-2024 Screw Hip Canc C nn Gription 30mm - Sna - [id number] ()[id number] 7)[id number])[id number](21)NA, [id number] FDA Start: 05-17-2024 Screw Hip Canc C nn Gription 30mm - Sna - [id number], [id number] FDA Start: 05-17-2024 Goals Date Patient Goal Desired Activity /State Personal health goal Comment on above: Formatting of this n ote might be different from the original. Evaluation of progress towards goal: Safe dc transition from hospital to home with family support and [facility] services Clinical Notes 04-21-2024 to 03-14-2025 Telephone Encounter - ROSY BOLAÑOS - 03/14/2025 5:04 PM EDTTelephone Encounter - ROSY BOLAÑOS - 03/14/2025 5:04 PM EDTLisa Dedra RADHA - 02/21/2025 1:00 PM EDTPatient Instructions Note Date & Type Note Facility 03-14-2025 Telephone encounter Note Text Assistant Media Buyer Yes, this is Sandra Ravi calling. Returning your call, she asked me about the the oxycodone. And yes, I do think it has helped me some and no, I do not have any side effects. So if she could call in a prescription, please let me know. Thank you. [facility] 03-14-2025 Miscellaneous Notes Text Assistant Media Buyer Yes, this is Sandra Franklin calling. Returning your call, she asked me about the the oxycodone. And yes, I do think it has helped me some and no, I do not have any side effects. So if she could call in a prescription, please let me know. Thank you. documented in this encounter [facility] 02-21-2025 History of Presen t illness Narrative Images from the original note were not included. Sandra Franklin is a 84 y.o. female presents with chief complaint of Diabetes HPI: Here for recheck: Has seen Pain Mgmt: they would like to do spinal cord stimulator, she quit the tramadol and dose not want to take it any more, stopped it 3 weeks ago no difference in pain with or without it. No cauda BP: no CP, dyspnea, no dizziness SUBJECTIVE: MEDICATIONS: Current Outpatient Medications Medication Instructions acetaminophen (TYLENOL) 500 mg, Every 6 hours PRN ammonium lactate (Lac-Hydrin) 12 % lotion Apply to affected areas on body daily. amoxicillin (Amoxil) 500 MG tablet 4 tabs PO once 30-60 mins before procedure with food dilTIAZem CD (CARDIZEM CD) 120 mg, Oral, Daily donepezil (ARICEPT) 5 mg, Oral, Nightly gabapentin (NEURONTIN) 100 mg, 3 times daily melatonin 10 mg, Nightly PRN simvastatin (ZOCOR) 10 mg, Oral, [...] History: Diagnosis Date Actinic keratosis Acute glaucoma 10/26/2023 Allergic rhinitis 10/26/2023 Arthritis 10/26/2023 Cancer (HCC) 10/26/2023 Chronic low back pain, unspecified back pain laterality, unspecified whether sciatica present 10/26/2023 DDD (degenerative disc disease), lumbar 10/26/2023 Hemorrhoids 10/26/2023 Night cramps Squamous cell skin cancer Past Surgical History: Procedure Laterality Date CHOLECYSTECTOMY DILATION AND CURETTAGE HEMORRHOIDECTOMY LAMINECTOMY 2006 NEUROMA SURGERY Right removal of neuroma foot OTHER SURGICAL HISTORY squamous cell carcinoma removed form face CT TOTAL HIP ARTHROPLASTY Right 04/25/2020 TONSILLECTOMY TOTAL HIP ARTHROPLASTY Left 05/17/2024 Dr Moctezuma family history includes Cancer in her father and mother; Diabetes in her father and mother; Hypertension in her father and mother; Stroke in her father. OBJECTIVE: Visit Vitals BP 136/74 (BP Location: Left arm, Patient Position: Sitting, BP Cuff Size: Adult long) Pulse 63 Temp 98.7 F (Temporal) Resp 18 Wt 157 lb SpO2 98% BMI 26.53 kg/m Smoking Status Never BSA 1.8 m Physical Exam Vitals and nursing note [...] Effort: Pulmonary effort is normal. Breath sounds: Wheezing present. No rhonchi. Abdominal: General: Bowel sounds are normal. There is no distension. Palpations: Abdomen is soft. There is no mass. Tenderness: There is no abdominal tenderness. Musculoskeletal: Cervical back: Normal range of motion and neck supple. Right lower leg: No edema. Left lower leg: No edema. Comments: Kyphotic, walks with cane, pain with lumbar ROM Lymphadenopathy: Cervical: No cervical adenopathy. 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 Relevant Medications dilTIAZem CD (Cardizem CD) 120 MG 24 hr capsule Other hyperlipidemia Relevant Medications simvastatin (Zocor) 10 MG tablet DDD (degenerative disc disease), lumbar Med agreement: 02/21/25 [facility] reviewed No longer to give tramadol No NSAID d/t renal function, muscle relaxer d/t age Will try percocet 5/325mg once daily #14 no refill Relevant Medications oxyCODONE-acetaminophen (Percocet) 5-325 MG tablet Chronic kidney disease, stage 3b ([facility]-HCC) Control HTN and DM Monitor labs at minimum yearly and prn Labs 10/31: BUN 32, Cr 1.59, with gfr 31 Memory impairment of gradual onset Relevant Medications donepezil (Aricept) 5 MG tablet Associated Problem(s): DDD (degenerative disc disease), lumbar Med agreement: 02/21/25 [facility] reviewed No longer to give tramadol No NSAID d/t renal function, muscle relaxer d/t age Will try percocet 5/325mg once daily #14 no refill Associated Problem(s): Chronic kidney disease, stage 3b ([facility]-HCC) Control HTN and DM Monitor labs at minimum yearly and prn Labs 10/31: BUN 32, Cr 1.59, with gfr 31 Associated Problem(s): Essential hypertension Please check blood pressure daily and record DASH diet Limit caffeine Take medication as directed Contact office if chest pain, pressure, dizziness, shortness of breath, swelling legs Recommend slow position changes Current med: cardizem, valsartan/HCTZ documented in this encounter [facility] 02-21-2025 Instructions Chloe Colmenares NP - 02/21/2025 1:00 PM EDT No longer take tramadol We will trial Percocet (oxycodone/acetaminophen) 1 pill daily, do NOT take more than 1 pill daily, call me on 03/05/25 to let me know if it is helping. Make sure you are drinking plenty of fluids, monitor to make sure no increase in confusion documented in this encounter [facility] 11-02-2024 History of Presen t illness Narrative [...] Visit: 1 year documented in this encounter [facility] 10-13-2024 Telephone encounter Note Contact pt, I have reviewed her notes from ortho. Is she ok with me reaching out to Pain Mgmt to see about where theyare are at with getting MRI and send her back there?? [place] [facility] 10-13-2024 Miscellaneous Notes Contact pt, I have reviewed her notes from ortho. Is she ok with me reaching out to Pain Mgmt to see about where theyare are at with getting MRI and send her back there?? [place] documented in this encounter [facility] 10-12-2024 History of Presen t illness Narrative [...] Unremarkable left total hip arthroplasty. 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 documented in this encounter [facility] 10-10-2024 History of Presen t illness Narrative Associated Problem(s): DDD (degenerative disc disease), lumbar Cont tramadol, [facility] reviewed At last appt she was referred to pain mgmt at [facility], she was seen it was recommended that [...] being taken. She does not see a apple checker.Eye exam is not current. Hypertension This is [...] History: Diagnosis Date Actinic keratosis Acute glaucoma ([facility]) 10/26/2023 Allergic rhinitis 10/26/2023 Arthritis 10/26/2023 Cancer ([facility]) 10/26/2023 Chronic low back pain, unspecified back pain laterality, unspecified whether sciatica present 10/26/2023 DDD (degenerative disc disease), lumbar 10/26/2023 Hemorrhoids 10/26/2023 Night cramps Squamous cell skin cancer Past Surgical History: Procedure Laterality Date CHOLECYSTECTOMY DILATION AND CURETTAGE HEMORRHOIDECTOMY LAMINECTOMY 2006 NEUROMA SURGERY Right removal of neuroma foot OTHER SURGICAL HISTORY squamous cell carcinoma removed form face CT TOTAL HIP ARTHROPLASTY Right 04/25/2020 TONSILLECTOMY TOTAL [...] List Items Addressed This Visit Essential hypertension ([facility]) - Primary Please check blood pressure daily [...] capsule 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 ([facility]) Check blood sugars daily, notify if <70 [...] reviewed Chronic kidney disease, stage 3b (HCC) (CMS/HCC) Continue with monitoring labs prn Relevant Orders CBC and differential Basic metabolic panel Memory impairment of gradual onset Relevant Medications donepezil (Aricept) 5 MG tablet Type 2 diabetes mellitus with diabetic chronic kidney disease ([facility]) Unspecified dementia, unspecified severity, without behavioral disturbance, psychotic disturbance, mood disturbance, and anxiety ([facility]) Currently taking aricept, lives on her own, continues to drive, cooking and paying bills Associated Problem(s): 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 ([facility]) Check blood sugars daily, notify if <70 [...] Problem(s): Chronic kidney disease, stage 3b (HCC) ([facility]) Continue with monitoring labs prn Associated Problem(s): Essential hypertension ([facility]) Please check blood pressure daily and record [...] and paying bills documented in this encounter [facility] 10-10-2024 Instructions Chloe Colmenares NP - 10/10/2024 1:00 PM EST Get labs check Follow up in 3 months documented in this encounter [facility] 07-04-2024 History of Presen t illness Narrative [...] History: Diagnosis Date Actinic keratosis Acute glaucoma ([facility]) 10/26/2023 Allergic rhinitis 10/26/2023 Arthritis 10/26/2023 Cancer ([facility]) 10/26/2023 Chronic low back pain, unspecified back pain laterality, unspecified whether sciatica present 10/26/2023 DDD (degenerative disc disease), lumbar 10/26/2023 Hemorrhoids 10/26/2023 Night cramps Squamous cell skin cancer Past Surgical History: Procedure Laterality Date CHOLECYSTECTOMY DILATION AND CURETTAGE HEMORRHOIDECTOMY LAMINECTOMY 2006 NEUROMA SURGERY Right removal of neuroma foot OTHER SURGICAL HISTORY squamous cell carcinoma removed form face CT TOTAL HIP ARTHROPLASTY Right 04/25/2020 TONSILLECTOMY TOTAL [...] Medicine Chronic kidney disease, stage 3b (HCC) ([facility]) Continue with monitoring labs prn Type 2 diabetes mellitus with diabetic chronic kidney disease ([facility]) - Primary Remains off meds, d/t renal function, most current A1c test is 5.2% on 05/15/24 and that is without any diabetic meds Unspecified dementia, unspecified severity, without behavioral disturbance, psychotic disturbance, mood disturbance, and anxiety ([facility]) Currently taking aricept, lives on her own, continues to drive, cooking and paying bills Needs flu shot Relevant Orders Flu vaccine, trivalent, adjuvanted, PF ([id number]) (Fluad trivalent single dose syringe) Associated Problem(s): Type 2 diabetes mellitus with diabetic chronic kidney disease ([facility]) Remains off meds, d/t renal function, most current A1c test is 5.2% on 05/15/24 and that is without any diabetic meds Associated Problem(s): Chronic kidney disease, stage 3b (HCC) ([facility]) Continue with monitoring labs prn Associated Problem(s): Unspecified dementia, unspecified severity, without behavioral disturbance, psychotic disturbance, mood disturbance, and anxiety ([facility]) Currently taking aricept, lives on her own, continues to drive, cooking and paying bills documented in this encounter [facility] 07-04-2024 Instructions Chloe Colmenares NP - 07/04/2024 1:20 PM EDT Pain Management [facility], they should be calling you, if no response by 07/16/24 call me back documented in this encounter [facility] 06-27-2024 History of Presen t illness Narrative [...] History: Diagnosis Date Actinic keratosis Acute glaucoma ([facility]) 10/26/2023 Allergic rhinitis 10/26/2023 Arthritis 10/26/2023 Cancer ([facility]) 10/26/2023 Chronic low back pain, unspecified back [...] if she desires a referral to another engine specialist we would be happy to make referral, she states she would like to continue her care here. Dr. Moctezuma obtained history and examined the patient, I am acting as scribe for Dr. Moctezuma/SILVER LUQUE D.O. documented in this encounter [facility] 06-08-2024 Telephone encounter Note PT CALLED ASKING TO GET A REFILL ON HER [facility] NEEDS A NEW PRESCRIPTION [facility] 06-08-2024 Miscellaneous Notes PT CALLED ASKING TO GET A REFILL ON HER [facility] NEEDS A NEW PRESCRIPTION documented in this encounter [facility] 05-30-2024 History of Presen t illness Narrative [...] History: Diagnosis Date Actinic keratosis Acute glaucoma ([facility]) 10/26/2023 Allergic rhinitis 10/26/2023 Arthritis 10/26/2023 Cancer ([facility]) 10/26/2023 Chronic low back pain, unspecified back [...] Moctezuma/leo Moctezuma D.O. documented in this encounter [facility] 05-25-2024 History of Presen t illness Narrative Images from the original note were not included. HISTORY OF PRESENT ILLNESS: Sandra Fraknlin is an 83 y.o. @ female. Follow [...] History: Diagnosis Date Actinic keratosis Acute glaucoma ([facility]) 10/26/2023 Allergic rhinitis 10/26/2023 Arthritis 10/26/2023 Cancer ([facility]) 10/26/2023 Chronic low back pain, unspecified back [...] Moctezuma/leo Moctezuma D.O. documented in this encounter [facility] 05-24-2024 History of Presen t illness Narrative [...] out: 10:25 am Total time: 25 minutes 38964 Gait training x 15 minutes 80575 TherEx x 10 minutes Pain Management: The [...] functional transfers and bed mobility with independence. Repossession Agent Goals (4-6 weeks) Goal 1 : Patient [...] up next week. documented in this encounter [facility] 05-22-2024 History of Presen t illness Narrative [...] out: 10:25 am Total time: 25 minutes 75814 Gait training x 15 minutes 89313 TherEx x 10 minutes Pain Management: The [...] functional transfers and bed mobility with independence. Repossession Agent Goals (4-6 weeks) Goal 1 : Patient [...] is very impulsive. documented in this encounter [facility] 05-20-2024 History of Presen t illness Narrative [...] out: 12:50 pm Total time: 45 minutes 19010 Gait training x 15 minutes 60022 TherEx x 10 minutes 92672 Eval x 20 minutes. Pain Management: The [...] functional transfers and bed mobility with independence. Retirement Goals (4-6 weeks) Goal 1 : Patient [...] and improve functional mobility to return to PLOF documented in this encounter [facility] 05-19-2024 Telephone encounter Note Post op pain rx. PDMP reviewed. Initial rx was sent to mail pharmacy by mistake. That rx was cancelled and [facility] [place]. Patient notified. [facility] 05-19-2024 Miscellaneous Notes Post op pain rx. PDMP reviewed. Initial rx was sent to mail pharmacy by mistake. That rx was cancelled and [facility] [place] Patient notified. documented in this encounter [facility] 05-19-2024 Nurse Note AVS reviewed with the patient and signed. All questions answered and concerns addressed. Meds reviewed that need to be picked up from the pharmacy and administration times. The need to go to follow up appt 9 reviewed. All belongings returned. IV removed. Pt transferred to w/c plus one assist. 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 Transport being provided by family to home. [facility] 05-19-2024 Nurse Note AVS reviewed with the patient and signed. All questions answered and concerns addressed. Meds reviewed that need to be picked up from the pharmacy and administration times. The need to go to follow up appt 9 reviewed. All belongings returned. IV removed. Pt transferred to w/c plus one assist. 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 Transport being provided by family to home. documented in this encounter [facility] 05-19-2024 Hospital course Narrative Orthopaedic Discharge Summary Patient ID: Sandra Franklin [id number] 83 y.o. 1940 Admit date: 05/17/2024 Discharge date and time: 05/19/2024 Admitting Physician: Tomasa Moctezuma, DO Discharge Physician: same Admission Diagnoses: Severe [...] Studies: Daily hemoglobin and hematocrit Hospital Course:See [facility] inpatient notes for specifics Patient was admitted [...] APRN-CNP 05/19/24 1200 documented in this encounter [facility] 05-19-2024 Progress note Formatting of t his note is different from the original. Occupational Therapy CANCEL - Refusal attempted OT treatment, pt reports that she is leaving this afternoon and wants to wait until closer to discharge time before she gets dressed, declines OT at this time. OT to continue to follow. [facility] Work Phone: 05-19-2024 Miscellaneous Notes Occupational Therapy [...] at the bedside 7. Instruct patient/ patient inside sales representative about use of safety devices 8. Include patient/ patient inside sales representative in decisions related to safety Outcome: [...] belt. Weight Bearing Status: WBAT L LE Telemetry/Business Management Specialist: No Oxygen Used: Room air. Other: S/P [...] Date/Time User Outcome 05/19/24 0746 Laya Cohen, REGISTERED MEDICAL TRANSCRIPTIONIST Progressing 05/18/24 1317 Palak Jones, PT Progressing [...] Date/Time User Outcome 05/19/24 0746 Laya Cohen REGISTERED MEDICAL TRANSCRIPTIONIST Progressing 05/18/24 1317 Palak Jones, PT Progressing [...] Date/Time User Outcome 05/19/24 0746 Laya Cohen REGISTERED MEDICAL TRANSCRIPTIONIST Progressing 05/18/24 1054 Palak Jones PT Progressing Goal note from Hospital Encounter 03/29/2024 by Laya Cohen PTA Completion of x3 six inch steps. Problem: Standing Balance Dates: Start: 05/17/24 Disciplines: PT Goal: Improve balance to good Dates: Start: 05/17/24 Expected End: 05/26/24 Description: To reduce risk of falls. Disciplines: PT Outcomes Date/Time User Outcome 05/19/24 0746 Laya Cohen, REGISTERED MEDICAL TRANSCRIPTIONIST Progressing 05/18/24 1317 Palak Jones, PT Progressing [...] Date/Time User Outcome 05/19/24 0746 Laya Cohen, REGISTERED MEDICAL TRANSCRIPTIONIST Progressing 05/18/24 1317 Palak Jones PT Progressing [...] Description: INTERVENTIONS: 1. Encourage patient or legal inside sales representative to report early pain and ask [...] per policy 9. Teach patient or legal inside sales representative interventions for comforting Outcome: Progressing Note: [...] at the bedside 7. Instruct patient/ patient inside sales representative about use of safety devices 8. Include patient/ patient inside sales representative in decisions related to safety Outcome: [...] hygiene technique 7. Identify and instruct patient/patient inside sales representative in use of appropriate isolation precautions for identified infection/symptoms 8. Provide and discuss with patient/patient inside sales representative on educational MDRO sheet 9. Encourage and monitor nutritional status daily and consult shoeshiner if indicated 10. Implement neutropenic guidelines as needed 11. Review exposure to history of communicable disease and recent travel history on admission 12. Encourage annual influenza vaccine 13. Encourage pneumonia vaccine Outcome: Progressing Note: Evaluation of progress towards goal: Pt shows no signs of infection. Pt afebrile. Problem: Low Risk Fall Score Description: Calderon Fall Score of 0 - 24 or indicated by [facility] Assessment Goal: Patient should be free from fall Description: Interventions: 1. [place] to environment 2. Hourly rounds addressing the [...] non-skid footwear 11. Teach patient and patient inside sales representative to maintain environment for safety and [...] Treatment Precautions Activity: Ok to treat per RNSaritha Equipment: rolling walker, nonskid socks Weight Bearing Status: WBAT L LE Telemetry/Business Management Specialist: No Other: S/P L FISH Pain Assessment [...] Outcomes Date/Time User Outcome 05/18/24 1054 Palak oJnes PT Progressing Goal note from Hospital Encounter [...] therapy. Pt lives lives alone informs daughters Tameka and Judy provide good support, live nearby and will [...] difficulty affording home medications; preferred pharmacy is [facility] in [place]. Sticky note left in chart regarding D/C plan; scenario writer following for safe care transition. 05/18/24 1204 Discharge Disposition Discharge Disposition Home with Home Health ([facility]) County Information County of Residence [place] Patient Information Primary Caregiver Self Support System Immediate family Stressors Type of stressor (Denies any stressors) Income Information Income Information Retired/Pension/Social Security Referral To Community Resources Denies needs Discharge Planning Living Arrangements Alone Support Systems Children;Family members;Islam/adam community;Friends Assistance Needed Pt denies any DC needs, questions or concerns. She has support from her dtr if needed. Type of Residence Private residence Private Residence [address] Accessibility Steps into home Number of Steps 2 Home Care Services No Community Agencies Currently Utilized Other (Comment) ([facility]) Established DME Comments Has all needed DME: Denies any new needs. Patient expects to be discharged to: DC to home with [facility]. Does the patient need discharge transport arranged? Yes Services Requested: Services Requested Discharge Disposition: Home with self care, Home with home health services Facility/Service Name: [facility] Facility/Service Fax number: [phone] Facility/Service Does the patient need discharge transportation [...] 04/25/2020 Performed by Tomasa Moctezuma DO at [facility] TONSILLECTOMY TUBAL LIGATION 6 Clicks: Basic [...] 6 Clicks: Basic Mobility Raw Score: 20 [facility] [place] G Code Modifier: CJ Therapy Plan Need [...] mobility ok pass, Ok to evaluate per Saritha SHEPPARD Equipment: rolling walker, nonskid socks Weight Bearing Status: WBAT L LE Telemetry/Business Management Specialist: No Other: S/P L FISH Pain Assessment [...] Preop examination Problem: Knowledge Deficit Goal: Patient/patient inside sales representative demonstrates understanding of disease process, treatment [...] Description: INTERVENTIONS: 1. Encourage patient or legal inside sales representative to report early pain and ask [...] per policy 9. Teach patient or legal inside sales representative interventions for comforting Outcome: Progressing Note: [...] at the bedside 7. Instruct patient/ patient inside sales representative about use of safety devices 8. Include patient/ patient inside sales representative in decisions related to safety Outcome: Progressing Note: Evaluation of progress towards goal: Patient will remain free from falls. Room is clear of clutter, non- slip footwear is provided. Will continue to monitor. Problem: Knowledge Deficit Goal: Patient/patient inside sales representative demonstrates understanding of disease process, treatment [...] of 0 - 24 or indicated by [facility] Assessment Goal: Patient should be free from fall Description: Interventions: 1. [place] to environment 2. Hourly rounds addressing the [...] non-skid footwear 11. Teach patient and patient inside sales representative to maintain environment for safety and engage in all aspects of fall prevention program Outcome: Progressing Note: Evaluation of progress towards goal: Patient will remain free from falls. Room is clear of clutter, non- slip footwear is provided. Will continue to monitor. Problem: Knowledge Deficit Goal: Patient/patient inside sales representative demonstrates understanding of disease process, treatment [...] Moctezuma DO Anesthesia: Anesthesiologist: Miles Johnson MD CONTINUOUS WELD PIPE MILL SUPERVISOR: Khris Hernandez APRN-LATONIA Monitored Anesthesia Care, Spinal OR staff: Transit Specialist Primary: Melida Pope RN Scrub Person: Joel Gomez; [facility] Transit Specialist Orientee: Joe Mcelroy RNbar supervisor: Shyanne Garcia Estimated blood loss: 200 Complications: [...] was incised and the hip was dislocated [id number] was noted. The femoral head neck was [...] dressings were applied. documented in this encounter [facility] 05-19-2024 Plan of care note Problem: Safety [...] at the bedside 7. Instruct patient/ patient inside sales representative about use of safety devices 8. Include patient/ patient inside sales representative in decisions related to safety Outcome: Progressing Note: Evaluation of progress towards goal: Pt is free of injury, safe environment provided and maintained, medication administered as ordered, hand hygiene completed. [facility] Progress note Formatting of t his [...] belt. Weight Bearing Status: WBAT L LE Telemetry/Business Management Specialist: No Oxygen Used: Room air. Other: S/P [...] PT Outcomes Date/Time User Outcome 05/19/24 0746 Laay Cohen, REGISTERED MEDICAL TRANSCRIPTIONIST Progressing 05/18/24 1317 Palak Jones PT Progressing [...] Date/Time User Outcome 05/19/24 0746 Laya Cohen, REGISTERED MEDICAL TRANSCRIPTIONIST Progressing 05/18/24 1317 Palak Jones, PT Progressing [...] Date/Time User Outcome 05/19/24 0746 Laya Cohen, REGISTERED MEDICAL TRANSCRIPTIONIST Progressing 05/18/24 1054 Palak Jones, PT Progressing Goal note from Hospital Encounter 03/29/2024 by Laya Cohen PTA Completion of x3 six inch steps. Problem: Standing Balance Dates: Start: 05/17/24 Disciplines: PT Goal: Improve balance to good Dates: Start: 05/17/24 Expected End: 05/26/24 Description: To reduce risk of falls. Disciplines: PT Outcomes Date/Time User Outcome 05/19/24 0746 Laya Cohen, REGISTERED MEDICAL TRANSCRIPTIONIST Progressing 05/18/24 1317 Palak Jones, PT Progressing [...] Date/Time User Outcome 05/19/24 0746 Laya Cohen, REGISTERED MEDICAL TRANSCRIPTIONIST Progressing 05/18/24 1317 Palak Jones, PT Progressing [...] note and education documentation for this visit. [facility] 05-18-2024 Plan of care note Problem: Pain Goal: Patient goal is pain score less than 4, able to rest, and participant in treatment plan as appropriate Description: INTERVENTIONS: 1. Encourage patient or legal inside sales representative to report early pain and ask [...] per policy 9. Teach patient or legal inside sales representative interventions for comforting Outcome: Progressing Note: [...] at the bedside 7. Instruct patient/ patient inside sales representative about use of safety devices 8. Include patient/ patient inside sales representative in decisions related to safety Outcome: [...] hygiene technique 7. Identify and instruct patient/patient inside sales representative in use of appropriate isolation precautions for identified infection/symptoms 8. Provide and discuss with patient/patient inside sales representative on educational MDRO sheet 9. Encourage and monitor nutritional status daily and consult shoeshiner if indicated 10. Implement neutropenic guidelines as needed 11. Review exposure to history of communicable disease and recent travel history on admission 12. Encourage annual influenza vaccine 13. Encourage pneumonia vaccine Outcome: Progressing Note: Evaluation of progress towards goal: Pt shows no signs of infection. Pt afebrile. Problem: Low Risk Fall Score Description: Calderon Fall Score of 0 - 24 or indicated by [facility] Assessment Goal: Patient should be free from fall Description: Interventions: 1. [place] to environment 2. Hourly rounds addressing the [...] non-skid footwear 11. Teach patient and patient inside sales representative to maintain environment for safety and engage in all aspects of fall prevention program Outcome: Progressing Note: Evaluation of progress towards goal: Patient will remain free from falls. Room is clear of clutter, non- slip footwear is provided. Will continue to monitor. [facility] 05-18-2024 History of Presen t illness Narrative [...] results found for the last 168 hours. [facility] 05/18/24 1422 documented in this encounter [employer] 05-18-2024 Progress note Formatting of t his [...] Treatment Precautions Activity: Ok to treat per RNSaritha Equipment: rolling walker, nonskid socks Weight Bearing Status: WBAT L LE Telemetry/Business Management Specialist: No Other: S/P L FISH Pain Assessment [...] no resolved problems. Principal Problem: Preop examination [employer] [facility] 05-18-2024 Progress note Formatting of t his [...] therapy. Pt lives lives alone informs daughters Tameka and Judy provide good support, live nearby and will [...] difficulty affording home medications; preferred pharmacy is [facility] in [place]. Sticky note left in chart regarding D/C plan; scenario writer following for safe care transition. 05/18/24 1204 Discharge Disposition Discharge Disposition Home with Home Health ([facility]) County Information County of Residence [place] Patient Information Primary Caregiver Self Support System Immediate family Stressors Type of stressor (Denies any stressors) Income Information Income Information Retired/Pension/Social Security Referral To Community Resources Denies needs Discharge Planning Living Arrangements Alone Support Systems Children;Family members;Islam/adam community;Friends Assistance Needed Pt denies any DC needs, questions or concerns. She has support from her dtr if needed. Type of Residence Private residence Private Residence [address] [place] [address] Accessibility Steps into home Number of Steps 2 Home Care Services No Community Agencies Currently Utilized Other (Comment) ([facility]) Established DME Comments Has all needed DME: Denies any new needs. Patient expects to be discharged to: DC to home with [facility]. Does the patient need discharge transport arranged? Yes Services Requested: Services Requested Discharge Disposition: Home with self care, Home with home health services Facility/Service Name: [facility] Facility/Service Fax number: [phone] Facility/Service Does the patient need discharge transportation arranged?: No Initial DC Assessment Completed: Yes DC Planning Complete Discharge Milestones: Yes Patient Goals: Patient/Caregiver Goals Patient/Caregiver Goals: Home with Outpatient Service Provider Goals: Goals Home (pt-stated) Evaluation of progress towards goal: Safe dc transition from hospital to home with family support and [facility] services [employer] 05-18-2024 Progress note Formatting of t his [...] 04/25/2020 Performed by Tomasa Moctezuma DO at [facility] TONSILLECTOMY TUBAL LIGATION 6 Clicks: Basic [...] mobility ok pass, Ok to evaluate per Saritha SHEPPARD Equipment: rolling walker, nonskid socks Weight Bearing Status: WBAT L LE Telemetry/Business Management Specialist: No Other: S/P L FISH Pain Assessment [...] Disciplines: PT Outcomes Date/Time User Outcome 05/18/24 4044 Palak Jones PT Progressing Goal note from [...] distances. Disciplines: PT Outcomes Date/Time User Outcome 05/18/241053 [...] no resolved problems. Principal Problem: Preop examination [facility] 05-18-2024 Plan of care note Problem: Knowledge Deficit Goal: Patient/patient inside sales representative demonstrates understanding of disease process, treatment [...] goal: Continue to assess for when appropriate. [facility] 05-18-2024 Note XR HIP LT 2-3 VIEWS [...] Akash Sorensen MD on 05/18/2024 12:10 AM [facility] 05-18-2024 Note Clinical history: Postoperative evaluation. Comparisons: [...] Akash Sorensen MD on 05/18/2024 12:10 AM [facility] 05-17-2024 Plan of care note Problem: Pain Goal: Patient goal is pain score less than 4, able to rest, and participant in treatment plan as appropriate Description: INTERVENTIONS: 1. Encourage patient or legal inside sales representative to report early pain and ask [...] per policy 9. Teach patient or legal inside sales representative interventions for comforting Outcome: Progressing Note: [...] at the bedside 7. Instruct patient/ patient inside sales representative about use of safety devices 8. Include patient/ patient inside sales representative in decisions related to safety Outcome: Progressing Note: Evaluation of progress towards goal: Patient will remain free from falls. Room is clear of clutter, non- slip footwear is provided. Will continue to monitor. Problem: Knowledge Deficit Goal: Patient/patient inside sales representative demonstrates understanding of disease process, treatment [...] of 0 - 24 or indicated by [facility] Assessment Goal: Patient should be free from fall Description: Interventions: 1. [place] to environment 2. Hourly rounds addressing the [...] non-skid footwear 11. Teach patient and patient inside sales representative to maintain environment for safety and engage in all aspects of fall prevention program Outcome: Progressing Note: Evaluation of progress towards goal: Patient will remain free from falls. Room is clear of clutter, non- slip footwear is provided. Will continue to monitor. [facility] 05-17-2024 Plan of care note Problem: Knowledge Deficit Goal: Patient/patient inside sales representative demonstrates understanding of disease process, treatment [...] goal: Continue to assess for when appropriate. [facility] 05-17-2024 Procedure note Summary: Left hip replacement [...] Moctezuma DO Anesthesia: Anesthesiologist: Miles Johnson MD CONTINUOUS WELD PIPE MILL SUPERVISOR: Khris Hernandez APRN-CONTINUOUS WELD PIPE MILL SUPERVISOR Monitored Anesthesia Care, Spinal OR staff: Transit Specialist Primary: Melida Pope RN Scrub Person: Joel Gomez; [facility] [place] Transit Specialist Orientee: Joe Mcelroy RNbar supervisor: Shyanne Garcia Estimated blood loss: 200 Complications: [...] was incised and the hip was dislocated [id number] was noted. The femoral head neck was [...] 0.5% Marcaine plain. Sterile dressings were applied. [facility] 05-17-2024 Attending History and physical note HISTORY AND PHYSICAL INTERVAL NOTE: Sandra Franklin 1940 [id number] H&P reviewed. The patient was examined and there are no changes to the H&P. Tomasa Moctezuma DO Source Note - Tomasa Mocteuzma DO - 05/12/2024 1:18 PM EDT [facility] 05-17-2024 History and physical note HISTORY AND PHYSICAL INTERVAL NOTE: Sandra Franklin 1940 [id number] H&P reviewed. The patient was examined and there are no changes to the H&P. Tomasa Moctezuma DO Source Note - Tomasa Moctezuma DO - 05/12/2024 1:18 PM EDT documented in this encounter [facility] 05-16-2024 Telephone encounter Note Rx for postoperative pain [facility] 05-16-2024 Miscellaneous Notes Rx for postoperative pain documented in this encounter [facility] 05-15-2024 History of Presen t illness Narrative [facility] 3x/week or daily if needed - no active abduction for 6 weeks post op - gait train w/walker - WBAT - permanent hip dislocation protocol. documented in this encounter [facility] 04-26-2024 History of Presen t illness Narrative [...] surgery, with home PT Heart:no hx of PA afib or other issues Lungs; no asthma, COPD, no sleep apnea Specialist: Dr Cj [facility]ct[facility]uma at [facility] This is a chronic problem. The current [...] History: Diagnosis Date Actinic keratosis Acute glaucoma ([facility]) 10/26/2023 Allergic rhinitis 10/26/2023 Arthritis 10/26/2023 Cancer ([facility]) 10/26/2023 Chronic low back pain, unspecified back pain laterality, unspecified whether sciatica present 10/26/2023 DDD (degenerative disc disease), lumbar 10/26/2023 Hemorrhoids 10/26/2023 Night cramps Squamous cell skin cancer Past Surgical History: Procedure Laterality Date CHOLECYSTECTOMY DILATION AND CURETTAGE HEMORRHOIDECTOMY LAMINECTOMY 2006 NEUROMA SURGERY Right removal of neuroma foot OTHER SURGICAL HISTORY squamous cell carcinoma removed form face CT TOTAL HIP ARTHROPLASTY Right 04/25/2020 TONSILLECTOMY family [...] Echocardiogram 2D complete documented in this encounter [facility] 04-25-2024 History of Presen t illness Narrative [...] LT Hip [facility] 09/23/22, XR 03/23/24 [facility]. Prehab and HEP started 04/13. Pt recently referred to [facility] pain clinic for lumbar DDD. History of [...] History: Diagnosis Date Actinic keratosis Acute glaucoma ([facility]) 10/26/2023 Allergic rhinitis 10/26/2023 Arthritis 10/26/2023 Cancer ([facility]) 10/26/2023 Chronic low back pain, unspecified back [...] Comments denies dribbling. Incontinence denies. Musculoskeletal: CommentsSee [facility] for details. Skin: Rash denies. Neurologic: Dizziness [...] IMAGING: March 23, 2024 x-rays from the [facility] office AP pelvis and frog lateral of the left hip demonstrate stable appearing right total hip replacement. Mzsz-sg-qkuy in the left hip with subchondral sclerosis [...] Moctezuma/leo Moctezuma D.O. documented in this encounter [facility] 04-21-2024 Instructions Elda West RN - 04/21/2024 [...] in at the main lobby of the [facility]- registration desk is straight ahead as soon as you walk in. Tell them you are here for surgery. 2. If you have a Living Will/Durable Power of Crtts for Health Care that is not on [...] after you have bathed. 5. NO nail sao tomean/acrylic on at least one finger. If you are having a hand, wrist or foot surgery then all nail sao tomean and artificial/acrylic nails must be removed from [...] please call the Preadmission Testing office at [phone], Mon.-Fri. 7 a.m.-3 p.m. Leave a voicemail [...] Stop taking 0 days prior to procedure ldqimgiq-prtf-GA-calcium &mins (THERAGRAN-M) 9 mg iron-400 mcg tablet [...] with your doctor. documented in this encounter [facility] Evaluation note Diagnosis Chronic low [...] (CMS/HCC) Essential hypertension (CMS/HCC) Unspecified essential hypertension Primary osteoarthritis of left hip- Primary S/P total left hip arthroplasty documented in this encounter [facility]* Diagnosis Encounter for subsequent annual [...] hypertension Stage 3b chronic kidney disease (HCC) ([facility]) DDD (degenerative disc disease), lumbar Degeneration of [...] inoculation against influenza documented in this encounter [facility]* Diagnosis Postoperative pain- Primary Other [...] mellitus with diabetic chronic kidney disease (HCC) ([facility]/HCC) Chronic kidney disease, stage 3b (HCC) ([facility]) Unspecified dementia, unspecified severity, without behavioral disturbance, psychotic disturbance, mood disturbance, and anxiety ([facility] Essential hypertension ([facility]) Unspecified essential hypertension documented in this encounter [facility]* Diagnosis Essential hypertension ([facility]) Unspecified essential hypertension documented in this encounter [...] Memory impairment of gradual onset Other hyperlipidemia ([facility]) Essential hypertension ([facility]) Unspecified essential hypertension documented in this encounter [facility] Diagnosis Encounter for subsequent annual wellness visit (AWV) in Medicare patient- Primary Essential hypertension ([facility]) Unspecified essential hypertension Other hyperlipidemia ([facility]) 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, without long-term current use of insulin ([facility]) DDD (degenerative disc disease), lumbar Degeneration of lumbar or lumbosacral intervertebral disc Stage 3b chronic kidney disease (HCC) ([facility]) Routine general medical examination at health care facility Routine general medical examination at a health care facility Essential hypertension ([facility]/HCC)- Primary Unspecified essential hypertension Stage 3b chronic kidney disease (HCC) ([facility]) DDD (degenerative disc disease), lumbar Degeneration of [...] (CMS/HCC) Chronic kidney disease, stage 3b (HCC) ([facility]/HCC) 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, without [...] extremity pain- Primary documented in this encounter [facility] HealthcareEvaluation note* Diagnosis Encounter for [...] complication, without long-term current use of insulin ([facility]/HCC) Essential hypertension (CMS/HCC) Unspecified essential hypertension Stage 3b chronic kidney disease (HCC) ([facility]/HCC) Other hyperlipidemia (CMS/HCC) Unintentional weight loss Loss of weight 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, 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 Preoperative clearance- Primary Unspecified pre-operative examination Type 2 diabetes mellitus with diabetic chronic kidney disease (CMS/HCC) Chronic kidney disease, stage 3b (HCC) ([facility]/HCC) Unspecified dementia, unspecified severity, without behavioral disturbance, psychotic disturbance, mood disturbance, and anxiety ([facility]/HCC) Essential hypertension ([facility]/HCC) Unspecified essential hypertension Type 2 diabetes mellitus with diabetic chronic kidney disease ([facility]/HCC)- Primary Chronic kidney disease, stage 3b (HCC) ([facility]) Unspecified dementia, unspecified severity, without behavioral disturbance, psychotic disturbance, mood disturbance, and anxiety ([facility]/HCC) Degeneration of intervertebral disc of lumbar region, unspecified whether pain present Needs flu shot Need for prophylactic vaccination and inoculation against influenza Essential hypertension ([facility]/HCC)- Primary Unspecified essential hypertension Unspecified dementia, unspecified severity, without behavioral disturbance, psychotic disturbance, mood disturbance, and anxiety ([facility]/HCC) Type 2 diabetes mellitus with diabetic chronic kidney disease ([facility]/HCC) Chronic kidney disease, stage 3b (HCC) ([facility]) 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, without long-term current use of insulin ([facility]) 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, 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 Other hyperlipidemia ([facility]/HCC) documented in this encounter [facility]* Diagnosis Encounter for subsequent annual wellness visit (AWV) in Medicare patient- Primary Essential hypertension (CMS/HCC) Unspecified essential hypertension Other hyperlipidemia ([facility]) 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, without long-term current use of insulin ([facility]/HCC) DDD (degenerative disc disease), lumbar Degeneration of lumbar or lumbosacral intervertebral disc Stage 3b chronic kidney disease (HCC) ([facility]) Routine general medical examination at health care facility Routine general medical examination at a health care facility Essential hypertension ([facility])- Primary Unspecified essential hypertension Stage 3b chronic kidney disease (HCC) ([facility]) DDD (degenerative disc disease), lumbar Degeneration of lumbar or lumbosacral intervertebral disc Seasonal allergic rhinitis, unspecified trigger DDD (degenerative disc disease), lumbar- Primary Degeneration of lumbar or lumbosacral intervertebral disc 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, without long-term current use of insulin ([facility]) Essential hypertension ([facility]specified essential hypertension Stage 3b chronic kidney disease (HCC) ([facility]) Other hyperlipidemia ([facility]) Unintentional weight loss Loss of weight 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, 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 Preoperative clearance- Primary Unspecified pre-operative examination Type 2 diabetes mellitus with diabetic chronic kidney disease ([facility]) Chronic kidney disease, stage 3b (HCC) ([facility]) Unspecified dementia, unspecified severity, without behavioral disturbance, psychotic disturbance, mood disturbance, and anxiety ([facility]) Essential hypertension ([facility] Unspecified essential hypertension Type 2 diabetes mellitus with diabetic chronic kidney disease ([facility])- Primary Chronic kidney disease, stage 3b (HCC) ([facility]) Unspecified dementia, unspecified severity, without behavioral disturbance, psychotic disturbance, mood disturbance, and anxiety ([facility]) Degeneration of intervertebral disc of lumbar region, unspecified whether pain present Needs flu shot Need for prophylactic vaccination and inoculation against influenza Essential hypertension ([facility])- Primary Unspecified essential hypertension Unspecified dementia, unspecified severity, without behavioral disturbance, psychotic disturbance, mood disturbance, and anxiety ([facility]) Type 2 diabetes mellitus with diabetic chronic kidney disease ([facility]) Chronic kidney disease, stage 3b (HCC) ([facility]) 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, without long-term current use of insulin ([facility]) 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, 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 Other hyperlipidemia ([facility]) S/P total left hip arthroplasty- Primary Left hip pain Pain in joint, pelvic region and thigh documented in this encounter [facility] Diagnosis Preop examination- Primary Unspecified pre-operative examination Preop examination Unspecified pre-operative examination 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, 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 [place] Status post total hip replacement, left [facility] Diagnosis Encounter for subsequent annual wellness visit (AWV) in Medicare patient- Primary Essential hypertension ([facility]/HCC) Unspecified essential hypertension Other hyperlipidemia ([facility]) 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, without long-term current use of insulin ([facility]) DDD (degenerative disc disease), lumbar Degeneration of lumbar or lumbosacral intervertebral disc Stage 3b chronic kidney disease (HCC) ([facility]) Routine general medical examination at health care facility Routine general medical examination at a health care facility Essential hypertension ([facility]/HCC)- Primary Unspecified essential hypertension Stage 3b chronic kidney disease (HCC) ([facility]) DDD (degenerative disc disease), lumbar Degeneration of lumbar or lumbosacral intervertebral disc Seasonal allergic rhinitis, unspecified trigger DDD (degenerative disc disease), lumbar- Primary Degeneration of lumbar or lumbosacral intervertebral disc 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, without long-term current use of insulin ([facility]) Essential hypertension ([facility]) Unspecified essential hypertension Stage 3b chronic kidney disease (HCC) ([facility] Other hyperlipidemia ([facility]) Unintentional weight loss Loss of weight 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, 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 Preoperative clearance- Primary Unspecified pre-operative examination Type 2 diabetes mellitus with diabetic chronic kidney disease ([facility]/HCC) Chronic kidney disease, stage 3b (HCC) ([facility]) Unspecified dementia, unspecified severity, without behavioral disturbance, psychotic disturbance, mood disturbance, and anxiety ([facility]/HCC) Essential hypertension ([facility]/HCC) Unspecified essential hypertension Type 2 diabetes mellitus with diabetic chronic kidney disease ([facility]/HCC)- Primary Chronic kidney disease, stage 3b (HCC) ([facility]) Unspecified dementia, unspecified severity, without behavioral disturbance, psychotic disturbance, mood disturbance, and anxiety ([facility]) Degeneration of intervertebral disc of lumbar region, unspecified whether pain present Needs flu shot Need for prophylactic vaccination and inoculation against influenza Essential hypertension ([facility]/HCC)- Primary Unspecified essential hypertension Unspecified dementia, unspecified severity, without behavioral disturbance, psychotic disturbance, mood disturbance, and anxiety ([facility]/HCC) Type 2 diabetes mellitus with diabetic chronic kidney disease ([facility]/HCC) Chronic kidney disease, stage 3b (HCC) ([facility]) 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, without long-term current use of insulin (CMS/HCC) 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, 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 Other hyperlipidemia (CMS/HCC) Seborrheic keratosis- Primary Lentigines Herpesviral vesicular dermatitis Dermatitis herpetiformis documented in this encounter [facility]* Diagnosis Encounter for subsequent annual wellness visit (AWV) in Medicare patient- Primary Essential hypertension Unspecified essential hypertension Other hyperlipidemia 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, without long-term current use of insulin (HCC) DDD (degenerative disc disease), lumbar Degeneration of lumbar or lumbosacral intervertebral disc Stage 3b chronic kidney disease ([facility]) Routine general medical examination at health care facility Routine general medical examination at a health care facility Essential hypertension- Primary Unspecified essential hypertension Stage 3b chronic kidney disease ([facility]-HCC) DDD (degenerative disc disease), lumbar Degeneration of lumbar or lumbosacral intervertebral disc Seasonal allergic rhinitis, unspecified trigger DDD (degenerative disc disease), lumbar- Primary Degeneration of lumbar or lumbosacral intervertebral disc 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, without long-term current use of insulin (HCC) Essential hypertension Unspecified essential hypertension Stage 3b chronic kidney disease ([facility]-HCC) Other hyperlipidemia Unintentional weight loss Loss of weight 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, 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 Preoperative clearance- Primary Unspecified pre-operative examination Type 2 diabetes mellitus with diabetic chronic kidney disease (HCC) Chronic kidney disease, stage 3b (CMS-HCC) Unspecified dementia, unspecified severity, without behavioral disturbance, psychotic disturbance, mood disturbance, and anxiety (HCC) Essential hypertension Unspecified essential hypertension Type 2 diabetes mellitus with diabetic chronic kidney disease (HCC)- Primary Chronic kidney disease, stage 3b (CMS-HCC) Unspecified dementia, unspecified severity, without behavioral disturbance, psychotic disturbance, mood disturbance, and anxiety (HCC) Degeneration of intervertebral disc of lumbar region, unspecified whether pain present Needs flu shot Need for prophylactic vaccination and inoculation against influenza Essential hypertension- Primary Unspecified essential hypertension Unspecified dementia, unspecified severity, without behavioral disturbance, psychotic disturbance, mood disturbance, and anxiety (HCC) Type 2 diabetes mellitus with diabetic chronic kidney disease (HCC) Chronic kidney disease, stage 3b (CMS-HCC) 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, without long-term current use of insulin (HCC) 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, 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 Other hyperlipidemia Encounter for subsequent annual wellness visit (AWV) in Medicare patient- Primary Essential hypertension Unspecified essential hypertension Chronic kidney disease, stage 3b ([facility]-HCC) Type 2 diabetes mellitus with stage 3 chronic kidney disease, without long-term current use of insulin, unspecified whether stage 3a or 3b CKD (HCC) Chronic low back pain, unspecified back pain laterality, unspecified whether sciatica present Other hyperlipidemia 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 Encounter for screening mammogram for malignant neoplasm of breast Degeneration of intervertebral disc of lumbar region with discogenic back pain and lower extremity pain- Primary Essential hypertension Unspecified essential hypertension Chronic kidney disease, stage 3b ([facility]-HCC) 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, 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 Other hyperlipidemia documented in this encounter [facility]* Diagnosis Encounter for subsequent annual wellness visit (AWV) in Medicare patient- Primary Essential hypertension Unspecified essential hypertension Other hyperlipidemia 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, without long-term current use of insulin ([facility]) DDD (degenerative disc disease), lumbar Degeneration of lumbar or lumbosacral intervertebral disc Stage 3b chronic kidney disease ([facility]) Routine general medical examination at health care facility Routine general medical examination at a health care facility Essential hypertension- Primary Unspecified essential hypertension Stage 3b chronic kidney disease ([facility]-HCC) DDD (degenerative disc disease), lumbar Degeneration of lumbar or lumbosacral intervertebral disc Seasonal allergic rhinitis, unspecified trigger DDD (degenerative disc disease), lumbar- Primary Degeneration of lumbar or lumbosacral intervertebral disc 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, without long-term current use of insulin (HCC) Essential hypertension Unspecified essential hypertension Stage 3b chronic kidney disease (CMS-HCC) Other hyperlipidemia Unintentional weight loss Loss of weight 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, 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 Preoperative clearance- Primary Unspecified pre-operative examination Type 2 diabetes mellitus with diabetic chronic kidney disease (HCC) Chronic kidney disease, stage 3b (CMS-HCC) Unspecified dementia, unspecified severity, without behavioral disturbance, psychotic disturbance, mood disturbance, and anxiety (HCC) Essential hypertension Unspecified essential hypertension Type 2 diabetes mellitus with diabetic chronic kidney disease (HCC)- Primary Chronic kidney disease, stage 3b (CMS-HCC) Unspecified dementia, unspecified severity, without behavioral disturbance, psychotic disturbance, mood disturbance, and anxiety (HCC) Degeneration of intervertebral disc of lumbar region, unspecified whether pain present Needs flu shot Need for prophylactic vaccination and inoculation against influenza Essential hypertension- Primary Unspecified essential hypertension Unspecified dementia, unspecified severity, without behavioral disturbance, psychotic disturbance, mood disturbance, and anxiety (HCC) Type 2 diabetes mellitus with diabetic chronic kidney disease (HCC) Chronic kidney disease, stage 3b ([facility]) 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, without long-term current use of insulin (HCC) 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, 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 Other hyperlipidemia Encounter for subsequent annual wellness visit (AWV) in Medicare patient- Primary Essential hypertension Unspecified essential hypertension Chronic kidney disease, stage 3b ([facility]) Type 2 diabetes mellitus with stage 3 chronic kidney disease, without long-term current use of insulin, unspecified whether stage 3a or 3b CKD ([facility]) Chronic low back pain, unspecified back pain laterality, unspecified whether sciatica present Other hyperlipidemia 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 Encounter for screening mammogram for malignant neoplasm of breast Degeneration of intervertebral disc of lumbar region with discogenic back pain and lower extremity pain- Primary Essential hypertension Unspecified essential hypertension Chronic kidney disease, stage 3b ([facility]) 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, 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 Other hyperlipidemia Memory impairment of gradual onset Other hyperlipidemia documented in this encounter [facility]* Diagnosis Encounter for subsequent annual wellness visit (AWV) in Medicare patient- Primary Essential hypertension Unspecified essential hypertension Other hyperlipidemia 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, without long-term current use of insulin ([facility]) DDD (degenerative disc disease), lumbar Degeneration of lumbar or lumbosacral intervertebral disc Stage 3b chronic kidney disease ([facility]) Routine general medical examination at health care facility Routine general medical examination at a health care facility Essential hypertension- Primary Unspecified essential hypertension Stage 3b chronic kidney disease ([facility]) DDD (degenerative disc disease), lumbar Degeneration of lumbar or lumbosacral intervertebral disc Seasonal allergic rhinitis, unspecified trigger DDD (degenerative disc disease), lumbar- Primary Degeneration of lumbar or lumbosacral intervertebral disc 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, without long-term current use of insulin (HCC) Essential hypertension Unspecified essential hypertension Stage 3b chronic kidney disease ([facility]-HCC) Other hyperlipidemia Unintentional weight loss Loss of weight 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, 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 Preoperative clearance- Primary Unspecified pre-operative examination Type 2 diabetes mellitus with diabetic chronic kidney disease (HCC) Chronic kidney disease, stage 3b ([facility]) Unspecified dementia, unspecified severity, without behavioral disturbance, psychotic disturbance, mood disturbance, and anxiety (HCC) Essential hypertension Unspecified essential hypertension Type 2 diabetes mellitus with diabetic chronic kidney disease (HCC)- Primary Chronic kidney disease, stage 3b ([facility]) Unspecified dementia, unspecified severity, without behavioral disturbance, psychotic disturbance, mood disturbance, and anxiety (HCC) Degeneration of intervertebral disc of lumbar region, unspecified whether pain present Needs flu shot Need for prophylactic vaccination and inoculation against influenza Essential hypertension- Primary Unspecified essential hypertension Unspecified dementia, unspecified severity, without behavioral disturbance, psychotic disturbance, mood disturbance, and anxiety (HCC) Type 2 diabetes mellitus with diabetic chronic kidney disease (HCC) Chronic kidney disease, stage 3b ([facility]) 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, without long-term current use of insulin (HCC) 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, 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 Other hyperlipidemia Encounter for subsequent annual wellness visit (AWV) in Medicare patient- Primary Essential hypertension Unspecified essential hypertension Chronic kidney disease, stage 3b ([facility]-HCC) Type 2 diabetes mellitus with stage 3 chronic kidney disease, without long-term current use of insulin, unspecified whether stage 3a or 3b CKD ([facility]) Chronic low back pain, unspecified back pain laterality, unspecified whether sciatica present Other hyperlipidemia 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 Encounter for screening mammogram for malignant neoplasm of breast Degeneration of intervertebral disc of lumbar region with discogenic back pain and lower extremity pain- Primary Essential hypertension Unspecified essential hypertension Chronic kidney disease, stage 3b ([facility]-HCC) 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, 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 Other hyperlipidemia Degeneration of intervertebral disc of lumbar region with discogenic back pain and lower extremity pain documented in this encounter [facility]* Diagnosis Encounter for subsequent annual wellness visit (AWV) in Medicare patient- Primary Essential hypertension Unspecified essential hypertension Other hyperlipidemia 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, without long-term current use of insulin (HCC) DDD (degenerative disc disease), lumbar Degeneration of lumbar or lumbosacral intervertebral disc Stage 3b chronic kidney disease ([facility]-HCC) Routine general medical examination at health care facility Routine general medical examination at a health care facility Essential hypertension- Primary Unspecified essential hypertension Stage 3b chronic kidney disease ([facility]) DDD (degenerative disc disease), lumbar Degeneration of lumbar or lumbosacral intervertebral disc Seasonal allergic rhinitis, unspecified trigger DDD (degenerative disc disease), lumbar- Primary Degeneration of lumbar or lumbosacral intervertebral disc 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, without long-term current use of insulin (HCC) Essential hypertension Unspecified essential hypertension Stage 3b chronic kidney disease ([facility]-HCC) Other hyperlipidemia Unintentional weight loss Loss of weight 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, 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 Preoperative clearance- Primary Unspecified pre-operative examination Type 2 diabetes mellitus with diabetic chronic kidney disease (HCC) Chronic kidney disease, stage 3b ([facility]) Unspecified dementia, unspecified severity, without behavioral disturbance, psychotic disturbance, mood disturbance, and anxiety (HCC) Essential hypertension Unspecified essential hypertension Type 2 diabetes mellitus with diabetic chronic kidney disease (HCC)- Primary Chronic kidney disease, stage 3b ([facility]) Unspecified dementia, unspecified severity, without behavioral disturbance, psychotic disturbance, mood disturbance, and anxiety (HCC) Degeneration of intervertebral disc of lumbar region, unspecified whether pain present Needs flu shot Need for prophylactic vaccination and inoculation against influenza Essential hypertension- Primary Unspecified essential hypertension Unspecified dementia, unspecified severity, without behavioral disturbance, psychotic disturbance, mood disturbance, and anxiety (HCC) Type 2 diabetes mellitus with diabetic chronic kidney disease (HCC) Chronic kidney disease, stage 3b (CMS-HCC) 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, without long-term current use of insulin (HCC) 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, 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 Other hyperlipidemia Encounter for subsequent annual wellness visit (AWV) in Medicare patient- Primary Essential hypertension Unspecified essential hypertension Chronic kidney disease, stage 3b ([facility]) Type 2 diabetes mellitus with stage 3 chronic kidney disease, without long-term current use of insulin, unspecified whether stage 3a or 3b CKD (HCC) Chronic low back pain, unspecified back pain laterality, unspecified whether sciatica present Other hyperlipidemia 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 Discharge instructionsNot on filedocumented in this [facility] Purpose Family History No Family History Records FoundNo Family History Records FoundNo Family History Records FoundNo Family History Records Found Advance Directives Date Activated Date Inactivated Comments 04/25/2020 12:34 [...] Preoperative clearance Procedures Echocardiogram 2D complete Chloe Colmenares NP [address] [place] [address] [facility] [address] [place] [address] Referral ID Status Reason Start Date Expiration Date Visits Requested Visits Authorized [id number] Incomplete Perform Procedure 04/26/2024 10/23/2024 1 1 Specialty Diagnoses / Procedures Referred By Contac t Referred To Contact Physical Therapy Diagnoses Primary osteoarthritis of left hip Procedures CT OFFICE/OUTPATIENT NEW HIGH MDM 60 MINUTES Brennen Nagel, GOVERNMENT PROPERTY INSPECTOR [address] [place] [address] Mary Mckoy, PT [address] [place] [address] Referral ID Status Reason Start Date Expiration Date Visits Requested Visits Authorized [id number] Pending Review Specialty Services Required 05/15/2024 11/11/2024 1 1 Specialty Diagnoses / Procedures Referred By Contac t Referred To Contact Diagnoses Status post total hip replacement, left Procedures Discharge medication instruction-no alcohol while taking pain medications Brennen Nagel, PROCESS OWNER-AMMUNITION STORAGE SUPERINTENDENT [address] [place] [address] Referral ID Status Reason Start Date Expiration Date V isits Requested Visits Authorized [id number] Pending Review 05/19/2024 05/19/2025 1 1 Specialty Diagnoses / Procedures Referred By Contac t Referred To Contact Diagnoses Status post total hip replacement, left Procedures Discharge instruction after anesthesia/sedation Brennen Nagel, PROCESS OWNER-AMMUNITION STORAGE SUPERINTENDENT [address] [place] [address] Referral ID Status Reason Start Date Expiration Date V isits Requested Visits Authorized [id number] Pending Review 05/19/2024 05/19/2025 1 1 Specialty Diagnoses / Procedures Referred By Contac t Referred To Contact Procedures Follow-up with MD 7-14 days after surgery Brennen Nagel, PROCESS OWNER-AMMUNITION STORAGE SUPERINTENDENT [address] [place] [address] Referral ID Status Reason Start Date Expiration Date V isits Requested Visits Authorized [id number] Pending Review 05/19/2024 05/19/2025 1 1 Specialty Diagnoses / Procedures Referred By Contac t Referred To Contact Procedures Dressing instructions- keep incision clean and dry Brennen Nagel, PROCESS OWNER-AMMUNITION STORAGE SUPERINTENDENT [address] [place] [address] Referral ID Status Reason Start Date Expiration Date V isits Requested Visits Authorized [id number] Pending Review 05/19/2024 05/19/2025 1 1 Specialty Diagnoses / Procedures Referred By Contac t Referred To Contact Procedures Hygiene- may shower Brennen Nagel, PROCESS OWNER-AMMUNITION STORAGE SUPERINTENDENT [address] [place] [address] Referral ID Status Reason Start Date Expiration Date V isits Requested Visits Authorized [id number] Pending Review 05/19/2024 05/19/2025 1 1 Specialty Diagnoses / Procedures Referred By Contac t Referred To Contact Diagnoses Status post total hip replacement, left Procedures Apply ice to affected area Brennen Nagel, PROCESS OWNER-AMMUNITION STORAGE SUPERINTENDENT [address] [place] [address] Referral ID Status Reason Start Date Expiration Date V isits Requested Visits Authorized [id number] Pending Review 05/19/2024 05/19/2025 1 1 Specialty Diagnoses / Procedures Referred By Contac t Referred To Contact Diagnoses Status post total hip replacement, left Procedures Wear JOHN hose- on in morning, off at night Brennen Nagel, PROCESS OWNER-AMMUNITION STORAGE SUPERINTENDENT [address] [place] [address] Referral ID Status Reason Start Date Expiration Date V isits Requested Visits Authorized [id number] Pending Review 05/19/2024 05/19/2025 1 1 Specialty Diagnoses / Procedures Referred By Contac t Referred To Contact Procedures Elevate surgical leg above heart while sitting Brennen Nagel, PROCESS OWNER-AMMUNITION STORAGE SUPERINTENDENT [address] [place] [address] Referral ID Status Reason Start Date Expiration Date V isits Requested Visits Authorized [id number] Pending Review 05/19/2024 05/19/2025 1 1 Additional Source Comments INFORMATION SOURCE (unrecogn ized section and content) DATE CREATED AUTHOR 08/11/2021 [facility] DATE CREATED AUTHOR AUTHOR'S ORGANIZ ATION 05/21/2024 [facility] DATE CREATED AUTHOR AUTHOR'S ORGANIZ ATION 07/14/2024 [facility] DATE CREATED AUTHOR AUTHOR'S ORGANIZ ATION 02/24/2025 [facility] EPIC Reason for Visit (unrecogniz ed section and content) Reason Onset Date Comments Med Refill 06/08/2024 Reason Comments Follow-up Reason Comments Pain Reason Comments New Med Request Reason Comments Diabetes Specialty Diagnoses / Procedures Referred By Contac t Referred To Contact Diagnoses Unilateral primary osteoarthritis, left hip Degenerative Joint Disease Left Hip Procedures CT TOTAL HIP ARTHROPLASTY REPLACEMENT TOTAL JOINT HIP Jose Elias, Tomasa A, DO [address] [place] [address] [place] [address] Referral ID Status Reason Start Date Expiration Date Visits Re quested Visits Authorized [id number] 1 1 Reason Comments Suspicious Skin Lesion Reason Comments Med Refill Reason Onset Date Comments Med Refill 03/14/2025 Reason Onset Date Comments Med Refill 04/04/2025 Care Teams (unrecognized sec tion and content) Compressed Gas Equipment Mechanic Relationship Specialty Start Date End Date Soy Walton MD [address] [place] [phone] PCP - General Family Medicine 10/19/23 Chloe Colmenares NP Referring Physician Family Medicine 05/11/23 Compressed Gas Equipment Mechanic Relationship Specialty Start Date End Date Soy Walton MD [address] [place] [address] PCP - General Family Medicine 10/19/23 Chloe Colmenares NP Referring Physician Family Medicine 05/11/23 Compressed Gas Equipment Mechanic Relationship Specialty Start Date End Date Unallocated, Logan Boland MD [address] [place] [address] PCP - General Family Medicine 06/21/24 Chloe Colmenares NP Referring Physician Family Medicine 05/11/23 Compressed Gas Equipment Mechanic Relationship Specialty Start Date End Date Unallocated, Logan Boland MD [address] [place] [address] PCP - General Family Medicine 06/21/24 Chloe Colmenares NP Referring Physician Family Medicine 05/11/23 Compressed Gas Equipment Mechanic Relationship Specialty Start Date End Date Unallocated, Logan Boland MD [address] [place] [address] PCP - General Family Medicine 06/21/24 Chloe Colmenares NP Referring Physician Family Medicine 05/11/23 Compressed Gas Equipment Mechanic Relationship Specialty Start Date End Date Unallocated, Logan Boland MD [address] [place] [address] PCP - General Family Medicine 06/21/24 Chloe Colmenares NP Referring Physician Family Medicine 05/11/23 Compressed Gas Equipment Mechanic Relationship Specialty Start Date End Date Soy Walton MD [address] [place] [address] PCP - General Family Medicine 07/04/24 Chloe Colmenares NP [address] [place] [address] Nurse Practitioner Family Medicine 07/04/24 Compressed Gas Equipment Mechanic Relationship Specialty Start Date End Date Soy Walton MD [address] [place] [phone] PCP - General Family Medicine 10/19/23 Chloe Colmenares NP Referring Physician Family Medicine 05/11/23 Compressed Gas Equipment Mechanic Relationship Specialty Start Date End Date Soy Walton MD [address] [place] [phone] PCP - General Family Medicine 10/19/23 Chloe Colmenares NP Referring Physician Family Medicine 05/11/23 Compressed Gas Equipment Mechanic Relationship Specialty Start Date End Date Soy Walton MD [address] [place] [phone] PCP - General Family Medicine 10/19/23 Chloe Colmenares NP Referring Physician Family Medicine 05/11/23 Compressed Gas Equipment Mechanic Relationship Specialty Start Date End Date Soy Walton MD [address] [place] [phone] PCP - General Family Medicine 10/19/23 Chloe Colmenares NP Referring Physician Family Medicine 05/11/23 Compressed Gas Equipment Mechanic Relationship Specialty Start Date End Date Soy Walton MD [address] [place] [phone] PCP - General Family Medicine 10/19/23 Chloe Colmenares NP Referring Physician Family Medicine 05/11/23 Compressed Gas Equipment Mechanic Relationship Specialty Start Date End Date Soy Walton MD [address] [place] [phone] PCP - General Family Medicine 10/19/23 Chloe Colmenares NP Referring Physician Family Medicine 05/11/23 Compressed Gas Equipment Mechanic Relationship Specialty Start Date End Date Soy Walton MD [address] [place] [phone] PCP - General Family Medicine 10/19/23 Chloe Colmenares NP Referring Physician Family Medicine 05/11/23 Compressed Gas Equipment Mechanic Relationship Specialty Start Date End Date Soy Walton MD [address] [place] [phone] PCP - General Family Medicine 10/19/23 Chloe Colmenares NP Referring Physician Family Medicine 05/11/23 Compressed Gas Equipment Mechanic Relationship Specialty Start Date End Date Soy Walton MD [address] [place] [phone] PCP - General Family Medicine 10/19/23 Chloe Colmenares NP Referring Physician Family Medicine 05/11/23 Compressed Gas Equipment Mechanic Relationship Specialty Start Date End Date Soy Walton MD [address] [place] [phone] PCP - General Family Medicine 10/19/23 Chloe Colmenares NP Referring Physician Family Medicine 05/11/23 Compressed Gas Equipment Mechanic Relationship Specialty Start Date End Date Soy Walton MD [address] [place] [address] PCP - General Family Medicine 10/19/23 Chloe Colmenares NP Referring Physician Family Medicine 05/11/23 Compressed Gas Equipment Mechanic Relationship Specialty Start Date End Date Soy Walton MD [address] [place] [phone] PCP - General Family Medicine 07/04/24 Chloe Colmenares NP [address] [place] [address] Nurse Practitioner Family Medicine 07/04/24 Compressed Gas Equipment Mechanic Relationship Specialty Start Date End Date Soy Walton MD [address] [place] [phone] PCP - General Family Medicine 07/04/24 Chloe Colmenares NP [address] [place] [address] Nurse Practitioner Family Medicine 07/04/24 Compressed Gas Equipment Mechanic Relationship Specialty Start Date End Date Soy Walton MD [address] [place] [address] PCP - General Family Medicine 07/04/24 Chloe Colmenares NP [address] [place] [phone] Nurse Practitioner Family Medicine 07/04/24 Compressed Gas Equipment Mechanic Relationship Specialty Start Date End Date Soy Walton MD [address] [place] [phone] PCP - General Family Medicine 07/04/24 Chloe Colmenares NP [address] [place] [phone] Nurse Practitioner Family Medicine 07/04/24 Compressed Gas Equipment Mechanic Relationship Specialty Start Date End Date Soy Walton MD [address] [place] [phone] PCP - General Family Medicine 07/04/24 Chloe Colmenares NP [address] [place] [phone] Nurse Practitioner Family Medicine 07/04/24 Compressed Gas Equipment Mechanic Relationship Specialty Start Date End Date Soy Walton MD [address] [place] [phone] PCP - General Family Medicine 07/04/24 Chloe Colmenares NP [address] [place] [phone] Nurse Practitioner Family Medicine 07/04/24 Compressed Gas Equipment Mechanic Relationship Specialty Start Date End Date Yimi Inman DO [address] [place] [id number] PCP - General Family Medicine 03/28/20 Compressed Gas Equipment Mechanic Relationship Specialty Start Date End Date Chloe Colmenares, PROCESS OWNER-AMMUNITION STORAGE SUPERINTENDENT [address] [place] [address] PCP - General Nurse Practitioner 05/15/24 Compressed Gas Equipment Mechanic Relationship Specialty Start Date End Date Soy Walton MD [address] [place] [address] PCP - General Family Medicine 07/04/24 Chloe Colmenares NP [address] [place] [address] Nurse Practitioner Family Medicine 07/04/24 Compressed Gas Equipment Mechanic Relationship Specialty Start Date End Date Soy Walton MD [address] [place] [address] PCP - General Family Medicine 07/04/24 Chloe Colmenares NP [address] [place] [address] Nurse Practitioner Family Medicine 07/04/24 Compressed Gas Equipment Mechanic Relationship Specialty Start Date End Date Soy Walton MD [address] [place] [address] PCP - General Family Medicine 07/04/24 Chloe Colmenares NP [address] [place] [address] Nurse Practitioner Family Medicine 07/04/24 Compressed Gas Equipment Mechanic Relationship Specialty Start Date End Date Soy Walton MD [address] [place] [phone] PCP - General Family Medicine 07/04/24 Chloe Colmenares NP [address] [place] [phone] Nurse Practitioner Family Medicine 07/04/24 Compressed Gas Equipment Mechanic Relationship Specialty Start Date End Date Soy Walton MD [address] [place] [phone] PCP - General Family Medicine 07/04/24 Chloe Colmenares NP [address] [place] [phone] Nurse Practitioner Family Medicine 07/04/24 Compressed Gas Equipment Mechanic Relationship Specialty Start Date End Date Soy Walton MD [address] [place] [phone] PCP - General Family Medicine 07/04/24 Chloe Colmenares NP [address] [place] [phone] Nurse Practitioner Family Medicine 07/04/24 Scheduled Active and Recently Administ ered Medications (unrecognized section and content) Medication Order 05/17/2024 05/18/2024 05/19/2024 acetaminophen (TYLENOL EXTRA STRENGTH) tablet 1,000 mg 1,000 mg, oral, Every 6 hours scheduled, First dose on Wed05/17/24 at 1800, Start 6 hours after the pre-op dose. 2477 (Given - Provider: Yesica Gaytan RN)1162 (Given - Provider: Liliya Graham RN) 0516 [...] Gaytan RN) 0800 (Given - Provider: Shirin Montoya RN)0900 (Canceled Entry - Provider: Shirin Montoya RN) [...] verify indication for use., Indication: Surgical prophylaxis 2115 (New Bag - Provider: Liliya Graham RN)2146 [...] prophylaxis 1233 (Given - Provider: Khris Hernandez APRN-CONTINUOUS WELD PIPE MILL SUPERVISOR) celecoxib (CeleBREX) capsule 200 mg (COMPLETED) 200 [...] Machado RN) 0800 (Given - Provider: Shirin Montoya RN) sennosides-docusate sodium (SENOKOT-S) 8.6-50 mg 1 tablet 1 tablet, oral, 2 times daily, First dose on Sharyn 05/18/24 at 0900, Start Post-Op Day 1: Hold for diarrhea 0918 (Given - Provider: Yesica Gaytan RN)2139 (Given - Provider: Liliya Graham RN) 0800 (Given - Provider: Shirin Montoya, SILVER)0900 (Canceled Entry - Provider: Shirin Montoya RN) tranexamic acid (LYSTEDA) tablet 1,950 mg (COMPLETED) [...] Yesica Gaytan RN)2116 (Paused - Provider: Shama Machado RN)2146 (Restarted - Provider: Shama Machado RN) 0040 (Stop Bag - Provider: Shama Machado RN)0043 (New Bag - Provider: Liliya Graham RN)0048 (Paused - Provider: Shama Machado RN)0050 (Restarted - Provider: Shama Machado RN)0051 (Paused - Provider: Shama Machado RN)0054 (Paused - Provider: Shama Machado RN)0054 (Paused - Provider: Shama Machado RN)0054 (Paused - Provider: Shama Machado RN)0054 (Restarted - Provider: Shama Machado RN)0348 [...] mg/mL) injection (CANCELED) As needed, Starting on 9/11/24 at 1407, Intra-op 1407 (Given - Provider: Tomasa Moctezuma, DO) hydrOXYzine (ATARAX) tablet 10 mg 10 [...] RN)1807 (See Alternative - Provider: Shama Machado RN)2138 (See Alternative - Provider: Liliya Graham RN) [...] Gaytan RN)1253 (Given - Provider: Yesica Gaytan RN)180 (Given - Provider: Shama Machado RN)2138 (Given - Provider: Liliya Graham RN) Linked [...] BE BASED ON THE PRIMARY CLINICAL RECORDS. [employer] provides no warranty or guarantee of the accuracy or completeness of information in this document.
[2025-04-30 11:02] LABS: Hematocrit 37.3 % (36.0-48.0); Hemoglobin 13.0 g/dL (12.0-16.0); Immature Granulocytes Abs Auto 0.01 10^3/uL (0.00-0.03); Immature Granulocytes Pct Auto 0.2 % (0.0-0.5); Lymphocytes Absolute Auto 1.4 10^3/uL (1.2-3.8); Mean Corpuscular HGB Conc 34.9 g/dL (29.9-35.2); Mean Corpuscular Hemoglobin 31.6 pg (26.7-34.0); Mean Corpuscular Volume 90.8 fL (81.0-99.0); Platelet Count 280 10^3/uL (150-450); Red Blood Count 4.11 10^6/uL (4.20-5.40); White Blood Count 5.2 10^3/uL (4.0-11.0)
[2025-04-30 11:11] LABS: Glucose Urine UA NEGATIVE (NEGATIVE)
[2025-04-30 11:44] LABS: Cast Seen? NONE SEEN #/LPF (NONE SEEN); Crystals Seen? None Seen #/HPF (None Seen)
[2025-04-30 11:55] LABS: Alanine Aminotransferase 168 U/L (14-59); Albumin Globulin Ratio 1.1; Albumin Level 4.2 g/dL (3.4-5.0); Alkaline Phosphatase 174 U/L (46-116); Anion Gap 10.2; Aspartate Amino Transferase 179 U/L (15-37); Blood Urea Nitrogen 29.0 mg/dL (7.0-18.0); Calcium 9.8 mg/dL (8.5-10.1); Carbon Dioxide 30.9 mmol/L (21.0-32.0); Chloride 104 mmol/L (98-107); Cholesterol 193 mg/dL (<=200); Estimated GFR (African America 36 (>=60 mL/min/1.73m^2); Estimated GFR (Non-African Ame 29 (>=60 mL/min/1.73m^2); Globulin 3.9 g/dL; Glucose 118 mg/dL (74-106); HDL Cholesterol 92 mg/dL (40-60); Potassium 4.1 mmol/L (3.5-5.1); Sodium 141 mmol/L (136-145); Total Protein 8.1 g/dL (6.4-8.2); Triglycerides 81 mg/dL (<=150); VLDL CHOLESTEROL 16.2 mg/dL
[2025-04-30 12:36] LABS: Microalbum Creatinine Ratio Ur 26.9 mg/g (0.0-29.9)
== END 2025-04-30 10:33 | disposition home or self-care (01) ==
LOC: LAB 10:34
PROVIDERS: PCP Nurse Practitioner; Visit Provider Nurse Practitioner
DX: E78.49 Other hyperlipidemia (principal); N18.32 Chronic kidney disease, stage 3b; E11.22 Type 2 diabetes mellitus with diabetic chronic kidney disease; N18.30 Chronic kidney disease, stage 3 unspecified; I12.9 Hypertensive chronic kidney disease with stage 1 through stage 4 chronic kidney disease, or unspecified chronic kidney disease
CPT/HCPCS: 36415; 80053; 80061; 81001; 82043; 82570; 85025

== ENCOUNTER 2025-05-22 13:20 | Outpatient (OUT) | payer MEDICARE, SELFPAY ==
[2025-05-22 14:06] LABS: Alanine Aminotransferase 29 U/L (14-59); Albumin Globulin Ratio 1.0; Albumin Level 3.8 g/dL (3.4-5.0); Alkaline Phosphatase 103 U/L (46-116); Aspartate Amino Transferase 18 U/L (15-37); Globulin 3.9 g/dL; Total Protein 7.7 g/dL (6.4-8.2)
--- OUTSIDE RECORDS SUMMARY | 2025-05-22 14:13 | XMS_ITS | CCD ---
Author Organization [facility] Care Team Providers Care Sports Marketer Name Role Phone REQUEST, DR NONE LISTED [...] HOUSE, YIMI Brown Primary Care Unavailable Dedra WELDING MACHINE OPERATOR RESISTANCE, Chloe Unavailable Anton ELIZALDE, Soy Primary Care Provider [place] ELIZALDE, Arens Provider Primary Care Provi lexa Anton ELIZALDE, Soy Primary Care Provider Dedra WELDING MACHINE OPERATOR RESISTANCE, Chloe Unavailable Jac ELZIALDE, Daniela Valdez Attending Unavailable Yimi Inman DO Primary Care Provider Chloe Santana Primary Care Provider CHLOE COLMENARES Attending Unavailable NAGEL, BRENNEN Salomon Attending Unavailable NAGEL, BRENNEN Salomon Referring Unavailable WILLARD VENEGAS Attending Unavailable AICHMEGHANA, CHLOE Attending Unavailable AICHMEGHANA, CHLOE Attending Unavailable AICHHOLShailesh, CHLOE Attending Unavailable JOSE ELIAS, TOMASA Marcano Attending Unavailable JOSE ELIAS, TOMASA Marcano Referring Unavailable ENEDINA PHELPS Attending Unavailable JOSE ELIAS, TOMASA Marcano Referring Unavailable BRENNEN NAGEL Attending Unavailable DEDRA, CHLOE Attending Unavailable EAN, MARY Trinh Attending Unavailable NAGEL, BRENNEN Salomon Referring Unavailable CMKOY, MARY Trinh Attending Unavailable NAGEL, BRENNEN Salomon Referring Unavailable JOSE ELIAS, TOMASA Marcano Attending Unavailable JOSE ELIAS, TOMASA Marcano Attending Unavailable JOSE ELIAS, TOMASA Marcano Attending Unavailable JOSE ELIAS, TOMASA Marcano Referring Unavailable DEDRA, CHLOE Attending Unavailable Chloe Colmenares Primary Care Provider Chloe Colmenares Attending Provider Allergies Allergy Classification Reported Allergen(s) Allergy Type Date of Onset Reaction(s) Facility (1 source) Adhesive agent Drug allergy (disorder) 4 [facility] Repository (20 sources) Iodine; Translations: [IODINE] Drug Allergy 0 unknown [facility] Repository (2 sources) Latex; Translations: [LATEX] Propensity to adverse reactions to drug (disorder) 4 Rash [facility] Repository (4 sources) Pollen; Translations: [POLLEN EXTRACTS] Propensity to adverse reactions to drug (disorder) 0 unknown [facility] Repository (20 sources) Pollen Propensity to adverse reactions 0 [facility] Medications Current Medications Medication Drug Class(es) Dates Sig (Normalized) Sig (Original) acetaminophen 500 mg oral capsule (20 sources) Start: 05-08-2025 take 1 capsule by mouth every six hours as needed Acetaminophen 500 mg capsule Active 500 MG PO Every 6 hours as needed May 08, 2025 12:00am Complies with drug therapy Start: 05-17-2024 End: 05-19-2024 take 1000 mg by mouth every six hours 1,000 mg, oral, Every 6 hours scheduled, First dose on Wed05/17/24 at 1800, Start 6 hours after the pre-op dose. Start: 05-17-2024 End: 05-17-2024 take 650 mg by mouth once 650 mg, oral, Once, On Wed at 1030, For 1 dose, Pre-op take 1 tablet by vernell every six hours as needed acetaminophen (Tylenol) 500 MG tablet Take 500 mg by mouth every 6 (six) hours if needed Active acetaminophen 325 mg / oxyCODONE hydrochloride 5 mg oral tablet (7 sources) Opioid Agonist Start: 02-21-2025 End: 05-04-2025 take 1 tablet by mouth once daily as needed for pain oxyCODONE-acetaminophen (Percocet) 5-325 MG tablet Indications: Degeneration of intervertebral disc of lumbar region with discogenic back pain and lower extremity pain Take 1 tablet by mouth Daily as needed for severe pain 30 tablet 04/04/2025 05/04/2025 Active amoxicillin 500 mg oral tablet (15 sources) Penicillin-class Antibacterial Start: 10-12-2024 take 4 [...] 05-22-2025 take 1 capsule by mouth once daily, then take 1 capsule by mouth every twenty-four hours Diltiazem Hcl (Cardizem Cd) 120 mg capsule,extended release 24hr Active 120 MG PO Daily May 08, 2025 12:00am Complies with drug therapy take 1 capsule by [facility] every twenty-four hours in the morning dilTIAZem CD (CARDIZEM CD) 120 mg 24 hr capsule Take 1 capsule (120 mg total) by mouth in the morning. Active donepezil hydrochloride 5 mg oral tablet (20 sources) Start: 02-29-2024 End: 06-10-2025 take 1 tablet by mouth once daily Donepezil (Aricept) 5 mg tablet Active 5 MG PO Daily May 08, 2025 12:00am Complies with drug therapy gabapentin 100 mg oral capsule (7 sources) Anti-epileptic Agent Start: 12-28-2024 take 1 [...] take 1 tablet by mouth once daily Valsartan-Dickens chlorothiazide 80-12.5 mg tablet Active 1 TAB PO Daily May 08, 2025 12:00am Complies with drug therapy take 1 tablet by vernell th once in the morning valsartan-hydroCHLOROthiazide (DIOVAN-HC T) 80-12.5 mg per tablet Take 1 tablet by mouth in the morning. Active ammonium lactate 120 mg/ml topical lotion (11 sources) Start: 05-08-2025 Ammonium Lacta te 12 % lotion Active 1 APPLIC TOPICAL Daily May 08, 2025 12:00am Complies with drug therapy Start: 11-02-2024 End: 11-02-2025 ammonium lactate (Lac-Hydrin ) 12 % lotion Indications: Seborrheic keratosis Apply to affected areas on body daily. 396 g 11 11/02/2024 11/02/2025 Active melatonin 10 mg oral tablet (20 sources) Start: 05-08-2025 take 1 tablet by mouth once daily at bedtime as needed Melatonin 10 mg tablet Active 10 MG PO Daily at bedtime as needed May 08, 2025 12:00am Complies with drug therapy melatonin 10 MG tablet Take 10 mg by mouth as needed at bedtime (insomia) Active xxcurflp-ymhw-OV-calcium &mi ns (THERAGRAN-M) 9 mg iron-400 mcg tablet (3 sources) vylnyxvp-ozlr-PA -calcium &mins (THERAGRAN-M) 9 mg iron-400 mcg tablet Take 1 tablet by mouth daily. pmhalijg-kuer-UF -calcium &mins (THERAGRAN-M) 9 mg iron-400 mcg [...] End: 06-10-2025 take 1 tablet by mouth once daily Simvastatin 10 mg tablet Active 10 MG PO Daily May 08, 2025 12:00am Complies with drug therapy traMADol hydrochloride 50 mg oral tablet (20 [...] Drug Class(es) Dates Sig (Normalized) Sig (Original) bisacodyl 10 mg rectal suppository (1 source) Stimulant Laxative Start: 05-19-2024 End: 05-19-2024 10 mg, rectal, As needed, constipation, if no BM within 6 hours of administering Milk of Magnesia, Starting on Wed05/19/24 at 0000, Start Post-Op Day 2 Look-alike/sound-al ariana medication - verify indication for use. calcium [...] dose. For patient less than 120 kg. Look-alike/sound-al ariana medication - verify indication for use., Indication: Surgical prophylaxis celecoxib 200 mg oral capsule (1 source) Nonsteroidal Anti-inflammatory Drug Start: 05-17-2024 End: 05-17-2024 take 200 mg by mouth once 200 mg, oral, Once, On Wed05/17/24 at 1030, For 1 dose, Pre-op, Look-alike/sound-al ariana medication - verify indication for use. Start: [...] Active docusate sodium 50 mg / sennosides, [facility] 8.6 mg oral tablet (1 source) Start: [...] - verify indication for use. lactobacillus acidophilus [id number] unt / pectin 100 mg oral tablet [...] Translations: [Unspecified glaucoma] Onset: 10-26-2023 10-26-2023 Chronic Hemorrhoids (20 sources) Hemorrhoids; Translations: [Unspecified hemorrhoids] Onset: 10-26-2023 10-26-2023 Episodic Immunizations and screening for infectious disease (20 sources) Encounter for immunization; Translations: [Needs influenza immunization] Onset: 07-15-2021 Episodic Malignant neoplasm without specification of site (4 [...] left artificial hip joint] 06-27-2024 Chronic Other liver diseases (2 sources) Enzyme level - finding; Translations: [Elevated transaminase measurement] 05-08-2025 Episodic Other nervous system disorders (20 sources) Difficulty walking; Translations: [Difficulty in walking, not elsewhere classified] Onset: 05-20-2024 05-20-2024 Chronic Other nervous system disorders (2 sources) Postoperative pain ; Translations: [Other acute postprocedural pain] 05-19-2024 Episodic Other non-epithelial cancer of skin (20 [...] conditions (not mental disorders or infectious disease) (9 sources) Patient encounter status; Translations: [Encounter for screening mammogram for malignant neoplasm of breast] Onset: 11-21-2024 11-21-2024 Episodic Other skin disorders (20 sources) Seborrheic keratosis; Translations: [Other seborrheic keratosis] Onset: 09-13-2023 09-13-2023 Episodic Other skin disorders (2 sources) Lentiginosis; Translations: [Other melanin hyperpigmentation] 11-02-2024 Episodic Other upper respiratory disease (20 sources) Allergic rhinitis; Translations: [Allergic rhinitis, unspecified] Onset: 10-26-2023 10-26-2023 Chronic Residual codes; unclassified (20 sources) Memory impairment; Translations: [Other amnesia] Onset: 12-21-2023 12-21-2023 Episodic Spondylosis; intervertebral disc disorders; other back problems (20 sources) Spondylosis without myelopathy or radiculopathy, lumbar region; Translations: [Degeneration of lumbar intervertebral disc] Onset: 02-18-2021 02-29-2024 Chronic Spondylosis; intervertebral disc disorders; other back problems (20 sources) Chronic low back pain; Translations: [Chronic low back pain, unspecified back pain laterality, unspecified whether sciatica present] Onset: 10-26-2023 06-08-2024 Episodic Comment on above: chronic low back ankit n,unspecified back pain laterality, unspecified whether sciatica present Unclassified (1 source) Degenerative Joint Disease Left [...] Resolved: 11-21-2024 10-26-2023 Other aftercare (1 source) 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; Translations: [ASSISTED CURRENT USE OF ASPIRIN] Onset: 02-18-2021 Episodic Other aftercare (1 source) Other correction (current) drug therapy; Translations: [OTH APPLICATION PROCESSOR CURRENT DRUG THERAPY] Onset: 02-18-2021 Episodic Other aftercare (1 source) [facility] (current) use of oral hypoglycemic drugs; Translations: [ASSISTED USE ORAL HYPOGLYCEMIC DX] Onset: 02-18-2021 Episodic [...] UTERUS] Onset: 02-18-2021 Episodic Urinary tract infections (20 sources) Urinary tract infection, site not specified; Translations: [Acute cystitis] Onset: 02-18-2021 Resolved: 04-26-2024 Episodic Results Test Name Value Interpretation Reference Range Facility ALL CBC WITH AUTO DIFFon BASOPHILS ABSOLUTE AUTO 0 [facility] Basophils/100 WBC (Bld) 0.8 % 0.2 - 2.0 % [facility] Eosinophils/100 WBC (Bld) 3.9 % 0.9 - 7.0 % [facility] Erythrocyte distribution width (RBC) [Ratio] 12 % 11.0 - 15.0 % [facility] Hematocrit (Bld) [Volume fraction] 37.3 % 36.0 - 48.0 % [facility] Hemoglobin (Bld) [Mass/Vol] 13 g/dL 12.0 - 16.0 g/dL [facility] IMMATURE GRANULOCYTES ABS AUTO 0.01 [facility] Immature granulocytes/100 WBC (Bld) 0.2 % 0.0 - 0.5 % [facility] Interpretation and review of laboratory results Abnormal [facility] LYMPHOCYTES ABSOLUTE AUTO 1.4 [facility] Lymphocytes/100 WBC (Bld) 27.2 % 20.5 - 60.0 % [facility] MCH (RBC) [Entitic mass] 31.6 pg 26.7 - 34.0 pg [facility] MCHC (RBC) [Mass/Vol] 34.9 g/dL 29.9 - 35.2 g/dL [facility] MCV (RBC) [Entitic vol] 90.8 fL 81.0 - 99.0 fL [facility] MONOCYTES ABSOLUTE AUTO 0.6 [facility] Monocytes/100 WBC (Bld) 11.4 % 1.7 - 12.0 % [facility] NEUTROPHILS ABSOLUTE AUTO 2.9 [facility] Neutrophils/100 WBC (Bld) 56.5 % 43.0 - 75.0 % [facility] Platelet mean volume (Bld) [Entitic vol] 10.5 fL 9.5 - 13.5 fL [facility] EO # 0.2 [facility] TB PLT 280 [facility] RBC 4.11 Low [facility] WBC 5.2 [facility] [place] [address] Magnetic Resonance Report Signed Patient: SANDRA FRANKLIN MR#: [id number] : 1940 Acct:[id number] Age/Sex: 83 / F ADM Date: 12/12/24 Loc: MRI Attending Dr: Daniela Nathan M.D. Ordering Physician: Daniela Nathan M.D. Date of Service: 12/12/24 Procedure(s): MR lumbar spine wo con Accession Number(s): [id number] cc: Chloe Colmenares NP; Daniela Nathan M.D. [place] [id number] Patient Name: SANDRA FRANKLIN MRN: [facility]:[id number] date: 1940 Sex: F Assigned Patient Location: MRI Current Patient Location: MRI Accession/Order Number: [id number] Exam Date: 12/12/2024 14:37 Report Date: 12/12/2024 [...] Smooth Gaytan M.D.12/12/2024 2:45 PM Dictation Location: [place] [address] Electronically authenticated by: [id number] Y Date: 12/12/2024 14:45 Dictated By: Smooth Gaytan D.O. Signed By: 12/12/248 DD/ 44 TD/TT: Pants Presser: [facility] Radiology, Radiologist, MD - 12/12/2024 [place] [address] Magnetic Resonance Report Signed Patient: SANDRA FRANKLIN MR#: [id number] : 1940 Acct:[id number] Age/Sex: 83 / F ADM Date: 12/12/24 Loc: MRI Attending Dr: Daniela Nathan M.D. Ordering Physician: Daniela Nathan M.D. Date of Service: 12/12/24 Procedure(s): MR lumbar spine wo con Accession Number(s): [id number] cc: Chloe Colmenares WELDING MACHINE OPERATOR RESISTANCE; Daniela Nathan M.D. [place] [id number] Patient Name: SANDRA FRANKLIN MRN: [facility]:[id number] date: 1940 Sex: F Assigned Patient Location: MRI Current Patient Location: MRI Accession/Order Number: [id number] Exam Date: 12/12/2024 14:37 Report Date: 12/12/2024 [...] Smooth Gaytan M.D.12/12/2024 2:45 PM Dictation Location: [place] [address] Electronically authenticated by: [id number] Y Date: 12/12/2024 14:45 Dictated By: Smooth Gaytan D.O. Signed By: 12/12/24 1448 DD/ 44 TD/TT: Pants Presser: [facility] ePub Direct Radiology Study observation (narrative) [facility] MR LUMBAR SPINE WO CONOrdere d By: Radiologist Radiology on 12-12-2024 [facility] [employer] Work Phone: ALL CBC WITH AUTO DIFFon BASOPHILS ABSOLUTE AUTO 0 [facility] Basophils/100 WBC (Bld) 0.5 % 0.2 - 2.0 % [facility] Eosinophils/100 WBC (Bld) 3.3 % 0.9 - 7.0 % [facility] Erythrocyte distribution width (RBC) [Ratio] 14 % 11.0 - 15.0 % [facility] Hematocrit (Bld) [Volume fraction] 34 % Low 36.0 - 48.0 % [facility] Health[facility] Hemoglobin (Bld) [Mass/Vol] 11.3 g/dL Low 12.0 - 16.0 g/dL [facility] IMMATURE GRANULOCYTES ABS AUTO 0.02 [facility] Immature granulocytes/100 WBC (Bld) 0.3 % 0.0 - 0.5 % [facility] Interpretation and review of laboratory results Abnormal [facility] LYMPHOCYTES ABSOLUTE AUTO 1.4 [facility] Lymphocytes/100 WBC (Bld) 20.8 % 20.5 - 60.0 % [facility] MCH (RBC) [Entitic mass] 31.8 pg 26.7 - 34.0 pg [facility] MCHC (RBC) [Mass/Vol] 33.2 g/dL 29.9 - 35.2 g/dL [facility] MCV (RBC) [Entitic vol] 95.8 fL 81.0 - 99.0 fL [facility] MONOCYTES ABSOLUTE AUTO 0.8 [facility] Monocytes/100 WBC (Bld) 11.6 % 1.7 - 12.0 % [facility] NEUTROPHILS ABSOLUTE AUTO 4.2 [facility] Neutrophils/100 WBC (Bld) 63.5 % 43.0 - 75.0 % [facility] Platelet mean volume (Bld) [Entitic vol] 9.4 fL Low 9.5 - 13.5 fL [facility] EO # 0.2 [facility] TBH PLT 326 [facility] TB RBC 3.55 Low [facility] WBC 6.7 [facility] XR Hip - left 3 Viewson 02-0 Imaging Result: 10/12/2024: AP and lateral of [...] Unremarkable left total hip arthroplasty. Brennen Nagel ELECTRICAL LOGGING ENGINEER-BUTTONHOLE FACER [facility] Radiology Study observation (narrative) [facility] HbA1c (Bld) [Mass fraction]o n 10-10-2024 Interpretation and review of laboratory results [facility] Hematology and Cell countson 10-10-2024 HbA1c (Bld) [Mass fraction] 5.30 % [facility] ALL BASIC METABOLIC PANELon 06-27-2024 Anion gap [Moles/Vol] 15.4 mmol/L [facility] Calcium [Mass/Vol] 9.5 mg/dL 8.5 - 10. 1 mg/dL [facility] Chloride [Moles/Vol] 105 mmol/L 98 - 10 7 mmol/L [facility] CO2 [Moles/Vol] 26 mmol/L 21.0 - 32.0 mmol/L [facility] Creatinine [Mass/Vol] 1.57 mg/dL High 0.55 - 1.02 mg/dL [facility] GFR/1.73 sq M.predicted CKD-EPI (S/P/Bld) [Vol rate/Area] 38 Low >=60 mL/min/1.73m 2 [facility] Glucose [Mass/Vol] 111 mg/dL High 74 - 106 mg/dL [facility] Interpretation and review of laboratory results Abnormal [facility] Potassium [Moles/Vol] 4.4 mmol/L 3.5 - 5.1 mmol/L [facility] Sodium [Moles/Vol] 142 mmol/L 136 - 145 mmol/L [facility] TBH EGFR-NON AF GABONESE 31 Low >=60 mL/min/1.73m 2 [facility] Urea nitrogen [Mass/Vol] 21 mg/dL High 7.0 - 18.0 mg/dL [facility] Urea nitrogen/Creatinine [Mass ratio] 13.4 mg/mg [facility] Interactive TKO e XR Hip - left 3 Viewson 06-07 Imaging Result: June 27, 2024 x-rays AP and lateral left hip demonstrate total hip replacement in good position alignment without signs of loosening fracture or failure. Impression: Stable appearance of left total hip replacement Bobby Moctezuma D.O. [facility] [employer]Pub Direct [facility] e Radiology Study observation (narrative) [facility] XR Pelvis and Hip - left [...] Akash Sorensen MD on 05/18/2024 12:10 AM [facility] XR Pelvis and Hip - left 2 V iewsOrdered By: Akash Sroensen on 05-18-2024 [facility] Work Phone: XR Pelvis and Hip - left 2 V iewson 05-17-2024 Radiology Study observation (narrative) [facility] HGB A1C (GLYCO-HGB)on 2023 Glucose [Mass/Vol] 103 mg/dL Normal [facility] Comment on above: Performed By: #### H A1C #### [facility] ([id number]) [address] [place] [address] HbA1c (Bld) [Mass fraction] 5.2 % Normal 4.4-5.6 [facility] Comment on above: Result Comment: NOTE ADA Guidelines Result HgbA1c Normal : less than 5.7 % Prediabetes : 5.7 % to 6.4 % Diabetes : > 6.4 % Use with caution in patients with abnormal hemoglobin variants as the half-life of red blood cells and in vivo glycation rates are affected. Performed By: #### H A1C #### [facility] ([id number]) [address], [address] [place] [address] Hemoglobin A1con 05-15-2024 Average glucose Estimated from glycated hemoglobin (Bld) [Mass/Vol] 103 mg/dL [facility] HbA1c (Bld) [Mass fraction] 5.2 % 4.4 - 5.6 % [facility] Comment on above: NOTE ADA Guidelines Result HgbA1c Normal : less than 5.7 % Prediabetes : 5.7 % to 6.4 % Diabetes : > 6.4 % Use with caution in patients with abnormal hemoglobin variants as the half-life of red blood cells and in vivo glycation rates are affected. [facility] BASIC METABOLIC PANLon 04-21 Anion gap [Moles/Vol] 13 mmol/L Normal 5-15 [facility] Comment on above: Performed By: #### C BCA, BMP #### [facility] ([id number]) [address] [place] [address] Calcium [Mass/Vol] 9.7 mg/dL Normal 8.5-10.5 [facility] Comment on above: Performed By: #### C BCA, BMP #### [facility] ([id number]) [address], [address] [place] [address] Chloride [Moles/Vol] 103 mmol/L Normal 98-109 [facility] Comment on above: Performed By: #### C BCA, BMP #### [facility] ([id number]) [address], [address] [place] [address] CO2 [Moles/Vol] 25 mmol/L Normal 22-32 [facility] Comment on above: Performed By: #### C BCA, BMP #### [facility] ([id number]) [address] [place] [address] Creatinine [Mass/Vol] 1.43 mg/dL High 0.40-1.00 [facility] Comment on above: Result Comment: METH OD TRACEABLE TO IDMS STANDARD Performed By: #### C BCA, BMP #### [facility] ([id number]) [address], [address] [place] [address] GFR/1.73 sq M.predicted among non-blacks MDRD (S/P/Bld) [Vol rate/Area] 36 mL/min/{1.73_m2} Low >59 [facility] Comment on above: Result Comment: Reported eGFR is based on the CKD-EPI 2020 equation that does not use a race coefficient. Performed By: #### C LARRY, BMP #### [facility] ([id number]) [address], [address] [place] [address] Glucose [Mass/Vol] 122 mg/dL High 65-99 [facility] Comment on above: Performed By: #### C LARRY, BMP #### [facility] ([id number]) [address] [place] [address] Potassium [Moles/Vol] 3.7 mmol/L Normal 3.5-5.0 [facility] Comment on above: Performed By: #### C LARRY, BMP #### [facility] ([id number]) [address], [address] [place] [address] Sodium [Moles/Vol] 141 mmol/L Normal 134-146 [facility] Comment on above: Performed By: #### C LARRY, BMP #### [facility] ([id number]) [address], [address] [place] [address] Urea nitrogen [Mass/Vol] 30 mg/dL High 5-27 [facility] Comment on above: Performed By: #### C BCA, BMP #### [facility] ([id number]) [address] [place] [address] CBC AND AUTO DIFFon 16 24 ABSOLUTE BASOPHIL 0.1 X10E9/L Normal 0.0-0.2 [facility] Comment on above: Performed By: #### C BCA, BMP #### [facility] ([id number]) [address] [place] [address] ABSOLUTE NEUTROPHIL 3.4 X10E9/L Normal 1.5-6.6 [facility] Comment on above: Performed By: #### C BCA, BMP #### [facility] ([id number]) [address], [address] [place] [address] Basophils/100 WBC (Bld) 1.0 % Normal [facility] Comment on above: Performed By: #### C BCA, BMP #### [facility] ([id number]) [address] [place] [address] Eosinophils (Bld) [#/Vol] 0.2 10*3/uL Normal 0.0-0.4 [facility] Comment on above: Performed By: #### C BCA, BMP #### [facility] ([id number]) [address] [place] [address] Eosinophils/100 WBC (Bld) 4.3 % Normal [facility] Comment on above: Performed By: #### C BCA, BMP #### [facility] ([id number]) [address] [place] [address] Erythrocyte distribution width (RBC) [Ratio] 15.3 % High 11.5-15.0 [facility] Comment on above: Performed By: #### C BCA, BMP #### [facility] ([id number]) [address] [place] [address] Hematocrit (Bld) [Volume fraction] 32.6 % Low 35-47 [facility] Comment on above: Performed By: #### C BCA, BMP #### [facility] ([id number]) [address], [address] [place] [address] Hemoglobin (Bld) [Mass/Vol] 11.1 g/dL Low 11.7-15.5 [facility] Comment on above: Performed By: #### C BCA, BMP #### [facility] ([id number]) [address], [address] [place] [address] Lymphocytes (Bld) [#/Vol] 1.1 10*3/uL Normal 1.0-3.5 [facility] Comment on above: Performed By: #### Farhan JUAREZ, BMP #### [facility] ([id number]) [address] [place] [address] Lymphocytes/100 WBC (Bld) 20.0 % Normal [facility] Comment on above: Performed By: #### C LARRY, BMP #### [facility] ([id number]) [address], [address] [place] [address] MCH (RBC) [Entitic mass] 31.0 pg Normal 27-34 [facility] Comment on above: Performed By: #### C LARRY, BMP #### [facility] [facility] ([id number]) [address], [address] [place] [address] MCHC (RBC) [Mass/Vol] 34.0 g/dL Normal 32-36 [facility] Comment on above: Performed By: #### Farhan JUAREZ, BMP #### [facility] ([id number]) [address], [address] [place] [address] MCV (RBC) [Entitic vol] 91 fL Normal 80-100 [facility] Comment on above: Performed By: #### C LARRY, BMP #### [facility] ([id number]) [address], [address] [place] [address] Monocytes (Bld) [#/Vol] 0.6 10*3/uL Normal 0-0.9 [facility] Comment on above: Performed By: #### C LARRY, BMP #### [facility] ([id number]) [address], [address] [place] [address] Monocytes/100 WBC (Bld) 11.7 % Normal [facility] Comment on above: Performed By: #### Farhan JUAREZ, BMP #### [facility] ([id number]) [address], [address] [place] [address] Neutrophils/100 WBC (Bld) 63.0 % Normal [facility] Comment on above: Performed By: #### Farhan JUAREZ, BMP #### [facility] ([id number]) [address], [address] [place] [address] Platelet mean volume (Bld) [Entitic vol] 8.3 fL Normal 7-12 [facility] Comment on above: Performed By: #### C LARRY, BMP #### [facility] ([id number]) [address], [address] [place] [address] Platelets (Bld) [#/Vol] 241 10*3/uL Normal 150-450 [facility] Comment on above: Performed By: #### Farhan JUAREZ, BMP #### [facility] ([id number]) [address], [address] [place] [address] RBC COUNT 3.58 X10E12/L Low 3.80-5.20 [facility] Comment on above: Performed By: #### Farhan JUAREZ, BMP #### [facility] ([id number]) [address], [address] [place] [address] WBC (Bld) [#/Vol] 5.4 10*3/uL Normal 4.0-11.0 [facility] Comment on above: Performed By: #### Farhan JUAREZ, BMP #### [facility] ([id number]) [address], [address] [place] [address] CULTURE URINEon 03-11-2021 CULTURE URINE Culture Observations: LIGHT GROWTH OF MIXED GENITAL NASIR. NO POTENTIAL PATHOGENS SEEN. Normal [facility] Comment on above: Performed By: #### C ALYSHA #### [facility] [address] [place], [place] [address] Justina Hussein UA RANDOM W/MICROSCOPICon BACTERIA TRACE Abnormal NONE SEEN [facility] Comment on above: Performed By: #### C BC #### [facility] [address] [place] [address] Justina Jovita Bilirubin Ql (U) Negative Normal NEGATIVE [facility] Comment on above: Performed By: #### C BC #### [facility] [address] [place] [address] Justina Jovita CAST NONE SEEN Normal NONE SEEN [facility] Comment on above: Performed By: #### C BC #### [facility] [address] [place] [address] Justina Jovita Clarity (U) SL CLOUDY Abnormal CLEAR [facility] Comment on above: Performed By: #### C BC #### [facility] [address] [place] [address] Justina Jovita Color (U) LT. YELLOW Normal YELLOW [facility] Comment on above: Performed By: #### C BC #### [facility] [address] [place] [address] Justina Jovita Crystals LM Nom (Urine sed) NONE SEEN Normal NONE SEEN [facility] Comment on above: Performed By: #### C BC #### [facility] [address] [place] [address] Justina Jovita Epithelial cells LM Ql (Urine sed) FEW Abnormal NONE SEEN /RARE [facility] Comment on above: Performed By: #### C BC #### [facility] [address] [place] [address] Justina Jovita Glucose Ql (U) Negative Normal NEGATIVE [facility] Comment on above: Performed By: #### C BC #### [facility] [address] [place] [address] Justina Jovita Hemoglobin Ql (U) Negative Normal NEGATIVE [facility] Comment on above: Performed By: #### C BC #### [facility] [address] [place] [address] Justina Jovita Ketones Ql (U) Negative Normal NEGATIVE [facility] Comment on above: Performed By: #### C BC #### [facility] [address] [place] [address] Justina Jovita LEUKOCYTES SMALL Abnormal NEGATIVE [facility] Comment on above: Performed By: #### C BC #### [facility] [address] [place], [place] [id number] Justina Jovita MUCOUS SMALL Abnormal NONE SEEN [facility] Comment on above: Performed By: #### C BC #### [facility] [address] [place], [place] [id number] Justina Jovita Nitrite Ql (U) Negative Normal NEGATIVE [facility] Comment on above: Performed By: #### C BC #### [facility] [address] [place], [place] [id number] Justinajoselyn Hussein pH (U) 6.5 [pH] Normal 5-9 [facility] Comment on above: Performed By: #### C BC #### [facility] [address] [place] [address] Justinajoselyn Hussein RBC 0-2 Normal 0-2 [facility] Comment on above: Performed By: #### C BC #### [facility] [address] [place] [address] Justina Hussein SPEC GRAVITY 1.020 Normal 1.005-<=1.025 [facility] Comment on above: Performed By: #### C BC #### [facility] [address] [place] [address] Justina Hussein UA PROTEIN Negative Normal NEGATIVE/ TRACE [facility] Comment on above: Performed By: #### C BC #### [facility] [address] [place], [place] [id number] Justina Hussein Urobilinogen Qn (U) 0.2 {Juan'U}/dL Normal 0.2 - 1. 0 [facility] Comment on above: Performed By: #### C BC #### [facility] [address] [place], [place] [id number] Justinajoselyn Hussein WBC 5-10 Abnormal NONE SEEN [facility] Comment on above: Performed By: #### C BC #### [facility] [address] [place], [place] [id number] Justinajoselyn Hussein CBC AUTO DIFFon 02-19-2021 BASO # 0.0 103/ul Normal 0.0-0.1 [facility] Comment on above: Performed By: #### C BC #### [facility] [address] [place] [id number] Justina Jovita Basophils/100 WBC (Bld) 0.6 % Normal 0.2-2.0 [facility] Comment on above: Performed By: #### C BC #### [facility] [address] [place] [id number] Justina Jovita EO # 0.0 103/ul Normal 0.0-0.7 [facility] Comment on above: Performed By: #### C BC #### [facility] [address] [place] [id number] Justina Jovita Eosinophils/100 WBC (Bld) 0.8 % Critically low 0.9-7.0 [facility] Comment on above: Performed By: #### C BC #### [facility] [address] [place] [address] Justina Jovita Erythrocyte distribution width (RBC) [Ratio] 13.3 % Normal 11.0-15.0 [facility] Comment on above: Performed By: #### C BC #### [facility] [address] [place], [place] [id number] Justina Jovita Hematocrit (Bld) [Volume fraction] 37.4 % Normal 36.0-48.0 [facility] Comment on above: Performed By: #### C BC #### [facility] [address] [place], [place] [id number] Justina Jovita Hemoglobin (Bld) [Mass/Vol] 12.7 g/dL Normal 12.0-16.0 [facility] Comment on above: Performed By: #### C BC #### [facility] [address] [place] [address] Justina Jovita IG # 0.02 10e3/ul Normal 0.00-0.03 [facility] Comment on above: Performed By: #### C BC #### [facility] [address] [place], [place] [address] Justina Jovita IG % 0.4 % Normal 0.0-0.5 [facility] Comment on above: Performed By: #### C BC #### [facility] [address] [place] [id number] Justina Jovita LYMPH # 0.7 103/ul Critically low 1.2-3.8 [facility] Comment on above: Performed By: #### C BC #### [facility] [address] [place] [phone] Justina Jovita Lymphocytes/100 WBC (Bld) 14.1 % Critically low 20.5-60.0 [facility] Comment on above: Performed By: #### C BC #### [facility] [address] [place], [place] [id number] Justina Jovita MANUAL DIFF REQ NO Normal [facility] Comment on above: Performed By: #### C BC #### [facility] [address] [place], [place] [id number] Justina Jovita MCH (RBC) [Entitic mass] 29.1 pg Normal 26.7-34.0 [facility] Comment on above: Performed By: #### C BC #### [facility] [address] [place], [place] [id number] Justina Jovita MCHC (RBC) [Mass/Vol] 34.0 g/dL Normal 29.9-35.2 [facility] Comment on above: Performed By: #### C BC #### [facility] [address] [place], [place] [id number] Justina Jovita MCV (RBC) [Entitic vol] 85.6 fL Normal 81.0-99.0 [facility] Comment on above: Performed By: #### C BC #### [facility] [address] [place], [place] [id number] Justina Jovita MONO # 0.4 103/ul Normal 0.3-0.8 [facility] Comment on above: Performed By: #### C BC #### [facility] [address] [place], [place] [id number] Justina Jovita Monocytes/100 WBC (Bld) 7.4 % Normal 1.7-12.0 [facility] Comment on above: Performed By: #### C BC #### [facility] [address] [place] [address] Justina Hussein NEUT # 3.8 103/ul Normal 1.4-6.5 [facility] Comment on above: Performed By: #### C BC #### [facility] [address] [place] [address] Justina Hussein Neutrophils/100 WBC (Bld) 76.7 % Critically high 43.0-75.0 [facility] Comment on above: Performed By: #### C BC #### [facility] [address] [place] [address] Justina Hussein Platelet mean volume (Bld) [Entitic vol] 9.5 fL Normal 9.5-13.5 [facility] Comment on above: Performed By: #### C BC #### [facility] [address] [place] [address] Justina Hussein PLT 259 103/ul Normal 150-450 [facility] Comment on above: Performed By: #### C BC #### [facility] [address] [place] [address] Justina Hussein RBC 4.37 106/ul Normal 4.20-5.40 [facility] Comment on above: Performed By: #### C BC #### [facility] [address] [place] [address] Justina Hussein WBC 5.0 103/ul Normal 4.0-11.0 [facility] Comment on above: Performed By: #### C BC #### [facility] [address] [place], [place] [id number] Justina Hussein ER URINE PROFILEon 1 Bilirubin Ql (U) Negative Normal NEGATIVE [facility] Comment on above: Performed By: #### E RUR #### [facility] [address] [place], [place] [id number] Justinajoselyn Hussein Clarity (U) CLEAR Normal CLEAR [facility] Comment on above: Performed By: #### E RUR #### [facility] [address] [place] [address] Justina Jovita Color (U) LT. YELLOW Normal YELLOW [facility] Comment on above: Performed By: #### E RUR #### [facility] [address] [place] [id number] Justina Jovita ERUAHD A micrscopic examination will be performed if indicated. Normal [facility] Comment on above: Performed By: #### E RUR #### [facility] [address] [place], [place] [id number] Justina Jovita Glucose Ql (U) Negative Normal NEGATIVE [facility] Comment on above: Performed By: #### E RUR #### [facility] [address] [place] [address] Justina Jovita Hemoglobin Ql (U) Negative Normal NEGATIVE [facility] Comment on above: Performed By: #### E RUR #### [facility] [address] [place] [address] Justina Jovita Ketones Ql (U) TRACE Abnormal NEGATIVE [facility] Comment on above: Performed By: #### E RUR #### [facility] [address] [place] [address] Justina Jovita LEUKOCYTES Negative Normal NEGATIVE [facility] Comment on above: Performed By: #### E RUR #### [facility] [address] [place], [place] [phone] Justina Jovita Nitrite Ql (U) Negative Normal NEGATIVE [facility] Comment on above: Performed By: #### E RUR #### [facility] [address] [place] [address] Justina Jovita pH (U) 5.0 [pH] Normal 5-9 [facility] Comment on above: Performed By: #### E RUR #### [facility] [address] [place], [place] [id number] Justina Jovita SPEC GRAVITY >=1.030 Abnormal 1.005-<=1.025 [facility] Comment on above: Performed By: #### E RUR #### [facility] [address] [place] [address] Justina Jovita UA PROTEIN Negative Normal NEGATIVE/ TRACE [facility] Comment on above: Performed By: #### E RUR #### [facility] [address] [place] [address] Justinajoselyn Chairezen UR MICRO IND NOT INDICATED Normal [facility] Comment on above: Performed By: #### E RUR #### [facility] [address] [place], [place] [id number] Justinajoselyn Chairezen Urobilinogen Qn (U) 0.2 {Juan'U}/dL Normal 0.2 - 1. 0 [facility] Comment on above: Performed By: #### E RUR #### [facility] [address] [place], [place] [address] Justinajoselyn Chairezen PROF CHEM 8 (BAS METB)on Anion gap [Moles/Vol] 15.2 mmol/L Normal [facility] Comment on above: Performed By: #### B MP #### [facility] [address] [place] [address] Justina Jovita Calcium [Mass/Vol] 9.3 mg/dL Normal 8.4-10.2 [facility] Comment on above: Performed By: #### B MP #### [facility] [address] [place] [address] Justina Jovita Chloride [Moles/Vol] 102 mmol/L Normal 98-107 [facility] Comment on above: Performed By: #### B MP #### [facility] [address] [place] [address] Justina Jovita CO2 [Moles/Vol] 28.5 mmol/L Normal 22.0-30.0 [facility] Comment on above: Performed By: #### B MP #### [facility] [address] [place] [address] Justina Jovita Creatinine [Mass/Vol] 1.35 mg/dL Critically high 0.52-1.04 [facility] Comment on above: Performed By: #### B MP #### [facility] [address] [place], [place] [address] Justina Jovita EGFR-AF GABONESE 46 mL/min/1.73m2 Critically low >=60 [facility] Comment on above: Performed By: #### B MP #### [facility] [address] [place], [place] [address] Justina Jovita EGFR-NON AF GABONESE 38 mL/min/1.73m2 Critically low >=60 [facility] Comment on above: Performed By: #### B MP #### [facility] [address] [place], [place] [id number] Justina Jovita Glucose [Mass/Vol] 121 mg/dL Critically high 74-106 [facility] Comment on above: Performed By: #### B MP #### [facility] [address] [place] [address] Justina Jovita Potassium [Moles/Vol] 3.7 mmol/L Normal 3.4-5.0 [facility] Comment on above: Performed By: #### B MP #### [facility] [address] [place] [address] Justina Jovita Sodium [Moles/Vol] 142 mmol/L Normal 137-145 [facility] Comment on above: Performed By: #### B MP #### [facility] [address] [place] [address] Justina Jovita Urea nitrogen [Mass/Vol] 12.0 mg/dL Normal 7.0-17.0 [facility] Comment on above: Performed By: #### B MP #### [facility] [address] [place] [address] Justina Jovita Urea nitrogen/Creatinine [Mass ratio] 8.9 mg/mg Normal [facility] Comment on above: Performed By: #### B MP #### [facility] [address] [place] [address] Justina Jovita CBC AUTO DIFFon 02-16-2021 BASO # 0.0 103/ul Normal 0.0-0.1 [facility] Comment on above: Performed By: #### C BC #### [facility] [address] [place], [place] [id number] Justina Jovita Basophils/100 WBC (Bld) 0.6 % Normal 0.2-2.0 [facility] Comment on above: Performed By: #### C BC #### [facility] [address] [place] [address] Justina Jovita EO # 0.1 103/ul Normal 0.0-0.7 [facility] Comment on above: Performed By: #### C BC #### [facility] [address] [place] [address] Justina Jovita Eosinophils/100 WBC (Bld) 1.8 % Normal 0.9-7.0 [facility] Comment on above: Performed By: #### C BC #### [facility] [address] [place] [address] Justina Jovita Erythrocyte distribution width (RBC) [Ratio] 13.3 % Normal 11.0-15.0 [facility] Comment on above: Performed By: #### C BC #### [facility] [address] [place] [address] Justina Jovita Hematocrit (Bld) [Volume fraction] 37.7 % Normal 36.0-48.0 [facility] Comment on above: Performed By: #### C BC #### [facility] [address] [place] [address] Justina Jovita Hemoglobin (Bld) [Mass/Vol] 13.0 g/dL Normal 12.0-16.0 [facility] Comment on above: Performed By: #### C BC #### [facility] [address] [place] [address] Justina Jovita IG # 0.02 10e3/ul Normal 0.00-0.03 [facility] Comment on above: Performed By: #### C BC #### [facility] [address] [place] [address] Justina Jovita IG % 0.3 % Normal 0.0-0.5 [facility] Comment on above: Performed By: #### C BC #### [facility] [address] [place] [address] Justina Jovita LYMPH # 1.5 103/ul Normal 1.2-3.8 [facility] Comment on above: Performed By: #### C BC #### [facility] [address] [place] [address] Justina Jovita Lymphocytes/100 WBC (Bld) 23.4 % Normal 20.5-60.0 [facility] Comment on above: Performed By: #### C BC #### [facility] [address] [place], [place] [id number] Justina Jovita MANUAL DIFF REQ NO Normal [facility] Comment on above: Performed By: #### C BC #### [facility] [address] [place], [place] [id number] Justina Jovita MCH (RBC) [Entitic mass] 29.5 pg Normal 26.7-34.0 [facility] Comment on above: Performed By: #### C BC #### [facility] [address] [place] [address] Justina Jovita MCHC (RBC) [Mass/Vol] 34.5 g/dL Normal 29.9-35.2 [facility] Comment on above: Performed By: #### C BC #### [facility] [address] [place], [place] [id number] Justina Jovita MCV (RBC) [Entitic vol] 85.5 fL Normal 81.0-99.0 [facility] Comment on above: Performed By: #### C BC #### [facility] [address] [place], [place] [id number] Justina Jovita MONO # 0.7 103/ul Normal 0.3-0.8 [facility] Comment on above: Performed By: #### C BC #### [facility] [address] [place], [place] [id number] Justina Jovita Monocytes/100 WBC (Bld) 10.3 % Normal 1.7-12.0 [facility] Comment on above: Performed By: #### C BC #### [facility] [address] [place], [place] [address] Justina Jovita NEUT # 4.2 103/ul Normal 1.4-6.5 [facility] Comment on above: Performed By: #### C BC #### [facility] [address] [place], [place] [id number] Justina Jovita Neutrophils/100 WBC (Bld) 63.6 % Normal 43.0-75.0 [facility] Comment on above: Performed By: #### C BC #### [facility] [address] [place], [place] [address] Justina Hussein Platelet mean volume (Bld) [Entitic vol] 9.9 fL Normal 9.5-13.5 [facility] Comment on above: Performed By: #### C BC #### [facility] [address] [place], [place] [address] Justinajoselyn Chairezen PLT 338 103/ul Normal 150-450 [facility] Comment on above: Performed By: #### C BC #### [facility] [address] [place], [place] [id number] Justina Jovita RBC 4.41 106/ul Normal 4.20-5.40 [facility] Comment on above: Performed By: #### C BC #### [facility] [address] [place] [address] Justina Chairezen WBC 6.6 103/ul Normal 4.0-11.0 [facility] Comment on above: Performed By: #### C BC #### [facility] [address] [place] [address] ABD/PELVIS WO CONon 02-16 [...] BRITTANI CABALLERO Date: 2021-02-16 17:59 Normal [facility] CULTURE URINEon 02-16-2021 CULTURE URINE Culture Observations: LIGHT GROWTH OF MIXED GENITAL NASIR. NO POTENTIAL PATHOGENS SEEN. Normal [facility] Comment on above: Performed By: #### C BC #### [facility] [address] [place] [address] Justina Jovita ER URINE PROFILEon Bilirubin Ql (U) Negative Normal NEGATIVE [facility] Comment on above: Performed By: #### LILIANA BRITORO #### [facility] [address] [place] [address] Justina Jovita Clarity (U) CLEAR Normal CLEAR [facility] Comment on above: Performed By: #### Stalin CROSS UMICRO #### [facility] [address] [place] [address] Justina Jovita Color (U) YELLOW Normal YELLOW [facility] Comment on above: Performed By: #### E [place] UMICRO #### [facility] [address] [place] [address] Justina Jovita ERUAHD A micrscopic examination will be performed if indicated. Normal [facility] Comment on above: Performed By: #### Stalin CROSS UMICRO #### [facility] [address] [place] [address] Justina Jovita Glucose Ql (U) Negative Normal NEGATIVE [facility] Comment on above: Performed By: #### E LILIANA CROSSRO #### [facility] [address] [place] [address] Justina Jovita Hemoglobin Ql (U) Negative Normal NEGATIVE [facility] Comment on above: Performed By: #### DESIREE BRITO #### [facility] [address] [place] [address] Justina Jovita Ketones Ql (U) Negative Normal NEGATIVE [facility] Comment on above: Performed By: #### DESIREE BRITO #### [facility] [address] [place] [address] Justina Jovita LEUKOCYTES SMALL Abnormal NEGATIVE [facility] Comment on above: Performed By: #### DESIREE BRITO #### [facility] [address] [place] [address] Justina Jovita Nitrite Ql (U) Negative Normal NEGATIVE [facility] Comment on above: Performed By: #### DESIREE BRITO #### [facility] [address] [place] [address] Justina Jovita pH (U) 5.0 [pH] Normal 5-9 [facility] Comment on above: Performed By: #### DESIREE BRITO #### [facility] [address] [place] [address] Justina Jovita SPEC GRAVITY >=1.030 Abnormal 1.005-<=1.025 [facility] [facility] Comment on above: Performed By: #### DESIREE BRITO #### [facility] [address] [place] [address] Justina Jovita UA PROTEIN Negative Normal NEGATIVE/ TRACE [facility] Comment on above: Performed By: #### DESIREE BRITO #### [facility] [address] [place] [address] Justina Jovita UR MICRO IND INDICATED Normal [facility] Comment on above: Performed By: #### DESIREE BRITO #### [facility] [address] [place] [address] Justina Jovita Urobilinogen Qn (U) 0.2 {Juan'U}/dL Normal 0.2 - 1. 0 [facility] Comment on above: Performed By: #### E DESIREE CROSS #### [facility] [address] [place], [place] [id number] Justina Jovita LACTATE/LACTIC ACIDon 2020 Lactate [Moles/Vol] 3.5 mmol/L Critically high 0.7-2.0 [facility] Comment on above: Result Comment: test repeated, critical value verified Performed By: #### L ACT #### [facility] [address] [place] [address] Justina Jovita Lactate [Moles/Vol] 3.7 mmol/L Critically high 0.7-2.0 [facility] Comment on above: Result Comment: test repeated, critical value verified Performed By: #### C BC #### [facility] [address] [place] [address] Justina Jovita LIPASEon 02-16-2021 Lipase [Catalytic activity/Vol] 173.0 U/L Normal 23.0-300.0 [facility] Comment on above: Performed By: #### C BC #### [facility] [address] [place], [place] [id number] Justina Hussein POINT OF CARE GLUCOSEon 02-04 Glucose [Mass/Vol] 187 mg/dL Critically high 74-106 [facility] Comment on above: Performed By: #### P OCGLUC #### [facility] [address] [place], [place] [id number] Justina Hussein PROF 14(COMP METB)on 021 Albumin [Mass/Vol] 4.4 g/dL Normal 3.5-5.0 [facility] Comment on above: Performed By: #### C BC #### [facility] [address] [place], [place] [id number] Justina Chairezen Albumin/Globulin [Mass ratio] 1.1 {ratio} Normal [facility] Comment on above: Performed By: #### C BC #### [facility] [address] [place], [place] [phone] Justina Jovita ALP [Catalytic activity/Vol] 51 U/L Normal 38-126 [facility] Comment on above: Performed By: #### C BC #### [facility] [address] [place], [place] [address] Justina Jovita ALT [Catalytic activity/Vol] 32 U/L Normal 9-52 [facility] Comment on above: Performed By: #### C BC #### [facility] [address] [place], [place] [address] Justina Jovita Anion gap [Moles/Vol] 14.8 mmol/L Normal [facility] Comment on above: Performed By: #### C BC #### [facility] [address] [place] [phone] Justina Jovita AST [Catalytic activity/Vol] 40 U/L Critically high 14-36 [facility] Comment on above: Performed By: #### C BC #### [facility] [address] [place] [address] Justina Jovita Bilirubin [Mass/Vol] 0.7 mg/dL Normal 0.2-1.3 [facility] Comment on above: Performed By: #### C BC #### [facility] [address] [place] [address] Justina Jovita Calcium [Mass/Vol] 9.6 mg/dL Normal 8.4-10.2 [facility] Comment on above: Performed By: #### C BC #### [facility] [address] [place], [place] [phone] Justina Jovita Chloride [Moles/Vol] 99 mmol/L Normal 98-107 [facility] Comment on above: Performed By: #### C BC #### [facility] [address] [place] [id number] Justina Jovita CO2 [Moles/Vol] 29.3 mmol/L Normal 22.0-30.0 [facility] Comment on above: Performed By: #### C BC #### [facility] [address] [place] [address] Justina Jovita Creatinine [Mass/Vol] 1.64 mg/dL Critically high 0.52-1.04 [facility] Comment on above: Performed By: #### C BC #### [facility] [address] [place], [place] [address] Justina Jovita EGFR-AF GABONESE 36 mL/min/1.73m2 Critically low >=60 [facility] Comment on above: Performed By: #### C BC #### [facility] [address] [place], [place] [address] Justina Jovita EGFR-NON AF GABONESE 30 mL/min/1.73m2 Critically low >=60 [facility] Comment on above: Performed By: #### C BC #### [facility] [address] [place], [place] [address] Justina Jovita Globulin (S) [Mass/Vol] 4.0 g/dL Normal [facility] Comment on above: Performed By: #### C BC #### [facility] [address] [place] [phone] Justina Jovita Glucose [Mass/Vol] 185 mg/dL Critically high 74-106 [facility] Comment on above: Performed By: #### C BC #### [facility] [address] [place] [phone] Justina Jovita Potassium [Moles/Vol] 4.1 mmol/L Normal 3.4-5.0 [facility] Comment on above: Performed By: #### C BC #### [facility] [address] [place] [phone] Justina Jovita Protein [Mass/Vol] 8.4 g/dL Critically high 6.1-8.2 [facility] Comment on above: Performed By: #### C BC #### [facility] [address] [place] [phone] Justina Jovita Sodium [Moles/Vol] 139 mmol/L Normal 137-145 [facility] Comment on above: Performed By: #### C BC #### [facility] [address] [place] [phone] Justina Jovita Urea nitrogen [Mass/Vol] 29.0 mg/dL Critically high 7.0-17.0 [facility] Comment on above: Performed By: #### C BC #### [facility] [address] [place] [address] Justina Hussein Urea nitrogen/Creatinine [Mass ratio] 17.7 mg/mg Normal [facility] Comment on above: Performed By: #### C BC #### [facility] [address] [place] [address] Justina Hussein PROTIMEon 02-16-2021 INR Coag (PPP) [Relative time] 1.05 {INR} Normal [facility] Comment on above: Performed By: #### P TT, PT #### [facility] [address] [place] [address] Justina Hussein INR GUIDELINES SEE BELOW Normal [facility] Comment on above: Result Comment: ROSELIA RED INR: 2.0 - 3.0 CONDITIONS NOT LISTED BELOW 2.5 - 3.5 FOR PROSTHETIC HEART VALVE REPLACEMENT 2.5 - 3.5 RECURRENT THROMBOSIS Performed By: #### P TT, PT #### [facility] [address] [place] [address] Justina Hussein PT Coag (PPP) [Time] 11.4 s Normal 9.0-11.6 [facility] Comment on above: Performed By: #### P TT, PT #### [facility] [address] [place] [address] Justina Hussein PTTon 02-16-2021 aPTT Coag (Bld) [Time] 24.1 s Normal 22.3-36.2 [facility] Comment on above: Performed By: #### P TT, PT #### [facility] [address] [place] [address] Justina Hussein TROPONIN, HIGH SENSITIVITYon 02-16-2021 HSTROP 6.2 pg/mL Normal 4.0-35.5 [facility] Comment on above: Result Comment: CUT- OFF POINTS HAVE BEEN ESTABLISHED BASED ON THE FOURTH UNIVERSAL DEFINITIONS OF MYOCARDIAL INFARCTION. THE UPPER REFERENCE LIMIT (URL) OF TROPONIN, DEFINED THE 99TH PERCENTILE OF cTnI DISTRIBUTION IN A REFERENCE POPULATION, HAS BEEN CONFIRMED THE DECISION THRESHOLD FOR PA DIAGNOSIS. Performed By: #### C BC #### [facility] [address] [place] [address] Justina Hussein URINE MICROSCOPIC ONLYon BACTERIA TRACE Abnormal NONE SEEN [facility] Comment on above: Performed By: #### LILIANA BRITORO #### [facility] [address] [place] [address] Justina Jovita Bacteria identified Cx Nom (U) INDICATED Normal [facility] Comment on above: Performed By: #### LILIANA BRITORO #### [facility] [address] [place], [place] [phone] Justina Jovita CAST SEEN Abnormal NONE SEEN [facility] Comment on above: Performed By: #### LILIANA BRITORO #### [facility] [address] [place] [address] Justina Jovita Crystals LM Nom (Urine sed) NONE SEEN Normal NONE SEEN [facility] Comment on above: Performed By: #### LILIANA BRITORO #### [facility] [address] [place], [place] [phone] Justina Jovita Epithelial cells LM Ql (Urine sed) FEW Abnormal NONE SEEN /RARE [facility] Comment on above: Performed By: #### LILIANA BRITORO #### [facility] [address] [place] [address] Justina Jovita MUCOUS NONE SEEN Normal NONE SEEN [facility] Comment on above: Performed By: #### LILIANA BRITORO #### [facility] [address] [place] [address] Justina Jovita RBC 2-5 Abnormal 0-2 [facility] Comment on above: Performed By: #### DESIREE BRITO #### [facility] [address] [place] [address] Justina Jovita WBC 20-50 Abnormal NONE SEEN [facility] Comment on above: Performed By: #### LILIANA BRITORO #### [facility] [address] [place], [place] [phone] Justina Jovita XR CHEST 2 Von 02-16-2021 XR CHEST 2 V EXAM: XR CHEST 2 V HISTORY: NAUSEA WITH VOMITING, UNSPECIFIED COMPARISON: None. TECHNIQUE: PA and lateral views FINDINGS: Lungs are clear. Cardiac silhouette is normal. No pleural effusion or pneumothorax. Degenerative changes both shoulders. No acute osseous findings. IMPRESSION: No acute process. Electronically authenticated by: TEJAS LAURA Date: 2021-02-16 17:49 Normal [facility] Vital Signs Date Time Vital Sign Value Performing Clinician Facility 05-08-2025 15:53-0400 Body height 165.51 cm Chloe Aichholz Work Phone: [facility] 05-08-2025 15:53-0400 Body mass index (BMI) [Ratio] 25.8 kg/m2 Chloe Aichholz Work Phone: [facility] 05-08-2025 15:53-0400 Body temperature 98.1 [degF] Chloe Aichholz Work Phone: [facility] 05-08-2025 15:53-0400 Body weight 70.76 kg Chloe Aichholz Work Phone: [facility] 05-08-2025 15:53-0400 Diastolic blood pressure 72 mm[Hg] Chloe Aichholz Work Phone: [facility] 05-08-2025 15:53-0400 Heart rate 104 /min Chloe Aichholz Work Phone: [facility] 05-08-2025 15:53-0400 Respiratory rate 18 /min Chloe Aichholz Work Phone: [facility] 05-08-2025 15:53-0400 SaO2% (BldA) [Mass fraction] 98 % Chloe Aichholz Work Phone: [facility] 05-08-2025 15:53-0400 Systolic blood pressure 126 mm[Hg] Chloe Aichholz Work Phone: [facility] 02-21-2025 13:04-0400 Body mass index (BMI) [Ratio] 26.53 kg/m2 Chloe Aichholz WELDING MACHINE OPERATOR [employer]ISTANCE Work Phone: [facility] 02-21-2025 13:04-0400 Body temperature 98.71 [degF] Chloe Yaoz WELDING MACHINE OPERATOR [employer]ISTANCE Work Phone: [facility] 02-21-2025 13:04-0400 Body weight 71.22 kg Chloe Yaoz WELDING MACHINE OPERATOR [employer]ISTANCE Work Phone: [facility] 02-21-2025 13:04-0400 Diastolic blood pressure 74 mm[Hg] Chloe Lorettaholz WELDING MACHINE OPERATOR [employer]ISTANCE Work Phone: [facility] 02-21-2025 13:04-0400 Heart rate 63 /min Chloe Lorettaholz WELDING MACHINE OPERATOR [employer]ISTANCE Work Phone: [facility] 02-21-2025 13:04-0400 Respiratory rate 18 /min Chloejeet Yaoz WELDING MACHINE OPERATOR RESISTANCE Work Phone: [facility] 02-21-2025 13:04-0400 SaO2% (BldA) [Mass fraction] 98 % Chloe Yaoz WELDING MACHINE OPERATOR [employer]ISTANCE Work Phone: [facility] 02-21-2025 13:04-0400 Systolic blood pressure 136 mm[Hg] Chloejeet Burgosholz WELDING MACHINE OPERATOR RESISTANCE Work Phone: [facility] 10-10-2024 13:10-0500 Body height 163.8 cm Chloe Burgosholz WELDING MACHINE OPERATOR [employer]ISTANCE Work Phone: [facility] 10-10-2024 13:10-0500 Body mass index (BMI) [Ratio] 25.92 kg/m2 Chloejeet Burgosholz WELDING MACHINE OPERATOR [employer]ISTANCE Work Phone: [facility] 10-10-2024 13:10-0500 Body temperature 98.8 [degF] Chloe Lorettaholz WELDING MACHINE OPERATOR [employer]ISTANCE Work Phone: [facility] 10-10-2024 13:10-0500 Body weight 69.58 kg Chloe Lorettaholz WELDING MACHINE OPERATOR [employer]ISTANCE Work Phone: [facility] 10-10-2024 13:10-0500 Diastolic blood pressure 82 mm[Hg] Chloe Aichholz WELDING MACHINE OPERATOR [employer]ISTANCE Work Phone: [facility] 10-10-2024 13:10-0500 Heart rate 93 /min Chloe Symonehholz WELDING MACHINE OPERATOR [employer]ISTANCE Work Phone: [facility] 10-10-2024 13:10-0500 Respiratory rate 18 /min Chloe Symonehholz WELDING MACHINE OPERATOR RESISTANCE Work Phone: [facility] 10-10-2024 13:10-0500 SaO2% (BldA) [Mass fraction] 99 % Chloe Symonehholz WELDING MACHINE OPERATOR RESISTANCE Work Phone: [facility] 10-10-2024 13:10-0500 Systolic blood pressure 138 mm[Hg] Chloe Aichholz WELDING MACHINE OPERATOR RESISTANCE Work Phone: [facility] 07-04-2024 13:32-0400 Body height 163.8 cm Chloe Symonehholz WELDING MACHINE OPERATOR [employer]ISTANCE Work Phone: [facility] 07-04-2024 13:32-0400 Body mass index (BMI) [Ratio] 25.25 kg/m2 Chloe Symonehholz WELDING MACHINE OPERATOR RESISTANCE Work Phone: [facility] 07-04-2024 13:32-0400 Body temperature 98.29 [degF] Chloe Symonehholz WELDING MACHINE OPERATOR RESISTANCE Work Phone: [facility] 07-04-2024 13:32-0400 Body weight 67.77 kg Chloe Symonehholz WELDING MACHINE OPERATOR RESISTANCE Work Phone: [facility] 07-04-2024 13:32-0400 Diastolic blood pressure 76 mm[Hg] Chloe Symonehholz WELDING MACHINE OPERATOR RESISTANCE Work Phone: [facility] 07-04-2024 13:32-0400 Heart rate 101 /min Chloe Aichholz WELDING MACHINE OPERATOR RESISTANCE Work Phone: [facility] 07-04-2024 13:32-0400 Respiratory rate 18 /min Chloe Aichholz WELDING MACHINE OPERATOR [employer]ISTANCE Work Phone: [facility] 07-04-2024 13:32-0400 SaO2% (BldA) [Mass fraction] 96 % Chloe Aichholz WELDING MACHINE OPERATOR RESISTANCE Work Phone: [facility] 07-04-2024 13:32-0400 Systolic blood pressure 128 mm[Hg] Chloe Colmenares WELDING MACHINE OPERATOR RESISTANCE Work Phone: [facility] 05-19-2024 07:57-0400 Body temperature 98.2 [degF] Tomasa Moctezuma DO Work Phone: [facility] [employer] 05-19-2024 07:57-0400 Diastolic blood pressure 65 mm[Hg] Tomasa Moctezuma DO Work Phone: [facility] [employer] 05-19-2024 07:57-0400 Heart rate 94 /min Tomasa Moctezuma DO Work Phone: [facility] [employer] [facility] 05-19-2024 07:57-0400 Respiratory rate 18 /min Tomasa Moctezuma DO Work Phone: [facility] [employer] 05-19-2024 07:57-0400 SaO2% (BldA) [Mass fraction] 99 % Tomasa Moctezuma DO Work Phone: [facility] [employer] 05-19-2024 07:57-0400 Systolic blood pressure 136 mm[Hg] Tomasa Moctezuma DO Work Phone: [facility] [employer] 05-17-2024 09:58-0400 Body height 163.8 cm Tomasa Moctezuma DO Work Phone: [facility] [employer] 05-17-2024 09:58-0400 Body mass index (BMI) [Ratio] 24 kg/m2 Tomasa Moctzeuma DO Work Phone: [facility] [employer] 05-17-2024 09:58-0400 Body weight 64.41 kg Tomasa Moctezuma DO Work Phone: [facility] [employer] [facility] 04-26-2024 13:03-0400 Body height 163.8 cm Chloe Colmenares WELDING MACHINE OPERATOR [employer]ISTANCE Work Phone: [facility] 04-26-2024 13:03-0400 Body mass index (BMI) [Ratio] 24.47 kg/m2 Chloe Colmenares WELDING MACHINE OPERATOR RESISTANCE Work Phone: [facility] 04-26-2024 13:03-0400 Body temperature 98.29 [degF] Chloe Colmenares WELDING MACHINE OPERATOR RESISTANCE Work Phone: [facility] 04-26-2024 13:03-0400 Body weight 65.68 kg Chloe Colmenares WELDING MACHINE OPERATOR RESISTANCE Work Phone: [facility] 04-26-2024 13:03-0400 Diastolic blood pressure 66 mm[Hg] Chloe Colmenares WELDING MACHINE OPERATOR RESISTANCE Work Phone: [facility] 04-26-2024 13:03-0400 Heart rate 100 /min Chloe Colmenares WELDING MACHINE OPERATOR RESISTANCE Work Phone: [facility] 04-26-2024 13:03-0400 Respiratory rate 18 /min Chloe Colmenares WELDING MACHINE OPERATOR RESISTANCE Work Phone: [facility] 04-26-2024 13:03-0400 SaO2% (BldA) [Mass fraction] 99 % Chloe Colmenares WELDING MACHINE OPERATOR RESISTANCE Work Phone: [facility] 04-26-2024 13:03-0400 Systolic blood pressure 110 mm[Hg] Chloe Colmenares WELDING MACHINE OPERATOR RESISTANCE Work Phone: [facility] 04-25-2024 11:07-0400 Body height 163.8 cm Tomasa [place]ariasston DO Work Phone: [facility] 04-25-2024 11:07-0400 Body mass index (BMI) [Ratio] 24.34 kg/m2 [facility] DO Work Phone: [facility] 04-25-2024 11:07-0400 Body weight 65.32 kg Tomasa [place] DO Work Phone: [facility] 04-21-2024 10:05-0400 Body height 163.8 cm [facility] 04-21-2024 10:05-0400 Body mass index (BMI) [Ratio] 24.34 kg/m2 [facility] 04-21-2024 10:05-0400 Body weight 65.32 kg [facility] [employer] Encounters Encounter Date Encounter Type Care Provider Facility Start: 05-08-2025 Preoperative state Chloe Neto braun Work Phone: [facility] Start: 05-08-2025 End: 05-08-2025 ambulatory Chloe Colmenares Work Phone: [facility] Work Phone: Start: 05-08-2025 End: 05-08-2025 Patient encounter procedure Chloe Colmenares WELDING MACHINE OPERATOR RESISTANCE-[facility] Work Phone: Start: 04-30-2025 End: 04-30-2025 Clinisync Result Encounter Chloe Colmenares WELDING MACHINE OPERATOR RESISTANCE Work Phone: [facility] External Department Unsolicited Start: 04-30-2025 End: 04-30-2025 Clinisync Result Encounter Chloe Colmenares WELDING MACHINE OPERATOR RESISTANCE Work Phone: [facility] External Department Unsolicited Start: 04-04-2025 End: 04-04-2025 Refill Chloe Colmenares WELDING MACHINE OPERATOR RESISTANCE Work Phone: [facility] Comment on above: 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 pain and lower extremity pain Start: 03-14-2025 End: 03-14-2025 Refill Chloe Colmenares WELDING MACHINE OPERATOR RESISTANCE Work Phone: [facility] Comment on above: 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 pain and lower extremity pain Start: 03-12-2025 End: 03-12-2025 Refill Chloe Colmenares WELDING MACHINE OPERATOR RESISTANCE Work Phone: [facility] Comment on above: Memory impairment of gradual onset; Other hyperlipidemia Start: 02-21-2025 End: 02-21-2025 Bamboo flowsheet Chloe Colmenares WELDING MACHINE OPERATOR RESISTANCE Work Phone: [facility] Start: 02-21-2025 End: 02-21-2025 Bamboo flowsheet Chloe Colmenares WELDING MACHINE OPERATOR RESISTANCE Work Phone: [facility] Start: 02-21-2025 End: 02-21-2025 Office outpatient visit 25 minutes Chloe Colmenares WELDING MACHINE OPERATOR RESISTANCE Work Phone: [facility] Comment on above: 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 pain and lower extremity pain (Primary Dx); Essential hypertension ; Chronic kidney disease, stage 3b (CMS-HCC); 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, unspecified type; Memory impairment of gradual onset; Other hyperlipidemia Start: 02-21-2025 End: 02-21-2025 ambulatory CHLOE COLMENARES Not Available Start: 12-12-2024 End: 12-12-2024 Clinisync Result Encounter Generic External Data Provider [facility] External Department Unsolicited Start: 12-12-2024 End: 12-12-2024 Clinisync Result Encounter Generic External Data Provider [facility] External Department Unsolicited Start: 11-21-2024 End: 11-21-2024 ambulatory CHLOE COLMENARES Not Available Start: 11-02-2024 End: 11-02-2024 Office [...] End: 10-16-2024 Clinisync Result Encounter Chloe Colmenares WELDING MACHINE OPERATOR RESISTANCE Work Phone: [facility] External Department Unsolicited Start: 10-16-2024 End: 10-16-2024 Clinisync Result Encounter Chloe Colmenares WELDING MACHINE OPERATOR RESISTANCE Work Phone: [facility] External Department Unsolicited Start: 10-13-2024 End: 10-13-2024 Telephone encounter Chloe Colmenares WELDING MACHINE OPERATOR RESISTANCE Work Phone: [facility] Start: 10-12-2024 End: 10-12-2024 ambulatory BRENNEN NAGEL Not Available Start: 10-12-2024 End: 10-12-2024 Bamboo flowsheet Brennen Nagel WELDING MACHINE OPERATOR RESISTANCE Work Phone: [facility] Start: 10-12-2024 End: 10-12-2024 Bamboo flowsheet Brennen Nagel WELDING MACHINE OPERATOR RESISTANCE Work Phone: [facility] Start: 10-12-2024 End: 10-12-2024 Office outpatient visit 15 minutes Brennen Nagel WELDING MACHINE OPERATOR RESISTANCE Work Phone: [facility] Comment on above: S/P total left hip a rthroplasty (Primary Dx); Left hip pain Start: 10-10-2024 End: 10-10-2024 Bamboo flowsheet Chloe Colmenares WELDING MACHINE OPERATOR RESISTANCE Work Phone: [facility] Start: 10-10-2024 End: 10-10-2024 Bamboo flowsheet Chloe Burgosmeghana WELDING MACHINE OPERATOR RESISTANCE Work Phone: [facility] Start: 10-10-2024 End: 10-10-2024 Office outpatient visit 25 minutes Chloe Dedra WELDING MACHINE OPERATOR RESISTANCE Work Phone: [facility] Comment on above: Essential hypertensi [...] Start: 10-10-2024 End: 10-10-2024 Refill Chloe Colmenares WELDING MACHINE OPERATOR RESISTANCE Work Phone: [facility] Comment on above: 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 pain and lower extremity pain (Primary Dx) Start: 07-10-2024 End: 07-10-2024 ambulatory Daniela Nathan MD Facility:[facility] Start: 07-04-2024 End: 07-04-2024 Bamboo flowsheet Chloe Colmenares WELDING MACHINE OPERATOR RESISTANCE Work Phone: [facility] Start: 07-04-2024 End: 07-04-2024 Bamboo flowsheet Chloe Colmenares WELDING MACHINE OPERATOR RESISTANCE Work Phone: [facility] Start: 07-04-2024 End: 07-04-2024 Office outpatient visit 25 minutes Chloe Colmenares WELDING MACHINE OPERATOR RESISTANCE Work Phone: [facility] Comment on above: 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) (Primary Dx); Chronic kidney disease, stage 3b (HCC) (CMS/[facility]); Unspecified dementia, unspecified severity, without behavioral disturbance, psychotic disturbance, mood disturbance, and anxiety (CMS/HCC); Degeneration of intervertebral disc of lumbar region, unspecified whether pain present; Needs flu shot Start: 07-04-2024 End: 07-04-2024 ambulatory CHLOE COLMENARES Not Available Start: 06-27-2024 End: 06-27-2024 Bamboo flowsheet Tomasa Moctezuma DO Work Phone: [facility] Start: 06-27-2024 End: 06-27-2024 Bamboo flowsheet Tomasa Moctezuma DO Work Phone: [facility] Start: 06-27-2024 End: 06-27-2024 Clinisync Result Encounter Chloe Colmenares WELDING MACHINE OPERATOR RESISTANCE Work Phone: [facility] External Department Unsolicited Start: 06-27-2024 End: 06-27-2024 ambulatory TOMSAA Jeet JOSE ELIAS Not Available Start: 06-27-2024 End: 06-27-2024 Postop follow up visit related to original px Tomasa Moctezuma DO Work Phone: [facility] [facility] Comment on above: Primary osteoarthrit is of left hip (Primary Dx); S/P total left hip arthroplasty Start: 06-09-2024 End: 06-09-2024 Refill Chloe Colmenares WELDING MACHINE OPERATOR RESISTANCE Work Phone: [facility] Comment on above: Cardiac arrhythmia d ue to premature depolarization, unspecified type Start: 06-08-2024 End: 06-08-2024 Telephone encounter hCloe Colmenares NP Work Phone: [facility] Comment on above: Med Refill Start: 05-30-2024 End: 05-30-2024 Bamboo flowsheet Tomasa Moctezuma DO Work Phone: [facility] Start: 05-30-2024 End: 05-30-2024 Bamboo flowsheet Tomasa Moctezuma DO Work Phone: [facility] Start: 05-30-2024 End: 05-30-2024 Refill Chloe Colmenares WELDING MACHINE OPERATOR RESISTANCE Work Phone: [facility] Comment on above: Cardiac arrhythmia d ue to premature depolarization, unspecified type; Memory impairment of gradual onset; Other hyperlipidemia (CMS/HCC); Essential hypertension (CMS/HCC) Start: 05-30-2024 End: 05-30-2024 Postop follow up visit related to original px Tomasa Moctezuma DO Work Phone: [facility] Comment on above: S/P total left hip a rthroplasty (Primary Dx) Start: 05-30-2024 End: 05-30-2024 ambulatory TOMASA Jeet JOSE ELIAS Not Available Start: 05-25-2024 End: 05-25-2024 Postop follow up visit related to original px Tomasa Moctezuma DO Work Phone: [facility] Comment on above: S/P total left hip a rthroplasty (Primary Dx) Start: 05-25-2024 End: 05-25-2024 ambulatory TOMASA MOCTEZUMA Not Available Start: 05-25-2024 ambulatory MARY Coyle A vibha Start: 05-24-2024 End: 05-24-2024 Clinical Support Mary Mckoy PT Work Phone: [facility] Comment on above: Status post left hip replacement (Primary Dx); Acute postoperative pain of left hip; Difficulty walking; Primary osteoarthritis of left hip Start: 05-23-2024 End: 05-23-2024 ambulatory MARY MCKOY Not Available Start: 05-22-2024 End: 05-22-2024 Clinical Support Mary Mckoy PT Work Phone: [facility] Comment on above: Status post left hip replacement (Primary Dx); Acute postoperative pain of left hip; Difficulty walking; Primary osteoarthritis of left hip Start: 05-20-2024 End: 05-20-2024 Clinical Support Mary Mckoy PT Work Phone: [facility] Comment on above: Status post left hip replacement (Primary Dx); Acute postoperative pain of left hip; Difficulty walking; Primary osteoarthritis of left hip Start: 05-19-2024 End: 05-19-2024 Telephone encounter Brennen Nagel WELDING MACHINE OPERATOR RESISTANCE Work Phone: [facility] Start: 05-17-2024 End: 05-19-2024 ambulatory TOMASA MOCTEZUMA [facility] Start: 05-17-2024 End: 05-19-2024 Preprocedural examination done Tomasa Moctezuma DO Work Phone: [facility] Start: 05-17-2024 End: 05-19-2024 Subsequent hospital visit by physician Tomasa Moctezuma DO Work Phone: [facility] Comment on above: Preop examination (P rimary Dx); 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, unspecified whether correction insulin use ([facility]); Status post total hip replacement, left Start: 05-16-2024 Preprocedural examin ation done Tomasa Moctezuma DO Work Phone: [facility] Start: 05-16-2024 End: 05-16-2024 Telephone encounter Tomasa Moctezuma DO Work Phone: [facility] Start: 05-16-2024 Encounter for other preprocedural examination TOMASA MOCTEZUMA [facility] Start: 05-15-2024 End: 05-15-2024 ambulatory TOMASA MOCTEZUMA [facility] Comment on above: Primary osteoarthrit is of left hip (Primary Dx) Start: 05-01-2024 End: 05-01-2024 Refill Chloe Colmenares WELDING MACHINE OPERATOR RESISTANCE Work Phone: [facility] Comment on above: Chronic low back ankit n, unspecified back pain laterality, unspecified whether sciatica present (Primary Dx) Start: 04-28-2024 End: 04-28-2024 Refill Chloe Colmenares WELDING MACHINE OPERATOR RESISTANCE Work Phone: [facility] Comment on above: Essential hypertensi on (CMS/HCC) Start: 04-26-2024 End: 04-26-2024 Bamboo flowsheet Chloe Colmenares WELDING MACHINE OPERATOR RESISTANCE Work Phone: [facility] Start: 04-26-2024 End: 04-26-2024 Bamboo flowsheet Chloe Colmenares WELDING MACHINE OPERATOR RESISTANCE Work Phone: [facility] Start: 04-26-2024 End: 04-26-2024 ambulatory CHLOE DEDRA Not Available Start: 04-26-2024 End: 04-26-2024 Office outpatient visit 25 minutes Chloe Colmenares WELDING MACHINE OPERATOR RESISTANCE Work Phone: [facility] Comment on above: Preoperative clearan ce (Primary Dx); 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); Chronic kidney disease, stage 3b (HCC) (CMS/HCC); Unspecified dementia, unspecified severity, without behavioral disturbance, psychotic disturbance, mood disturbance, and anxiety (CMS/HCC); Essential hypertension (CMS/HCC) Start: 04-26-2024 End: 04-26-2024 Preoperative state Chloe Colmenares WELDING MACHINE OPERATOR RESISTANCE Work Phone: [facility] Start: 04-25-2024 End: 04-25-2024 Bamboo flowsheet Brennen Nagel WELDING MACHINE OPERATOR RESISTANCE Work Phone: [facility] Start: 04-25-2024 End: 04-25-2024 Bamboo flowsheet Brennen Nagel WELDING MACHINE OPERATOR RESISTANCE Work Phone: [facility] Start: 04-25-2024 End: 04-25-2024 Office outpatient visit 40 minutes Tomasa Moctezuma DO Work Phone: [facility] Comment on above: Primary osteoarthrit is of left hip (Primary Dx); Left hip pain Start: 04-25-2024 End: 04-25-2024 ambulatory BRENNEN NAGEL Not Available Start: 04-21-2024 End: 04-21-2024 ambulatory TOMASA MOCTEZUMA [facility] Start: 04-21-2024 End: 04-21-2024 Patient encounter procedure [facility] Pre-Admission Testing 1 [facility] - Pre Admit Start: 04-13-2024 End: 04-13-2024 ambulatory ENEDINA PHELPS Not Available Start: 03-23-2024 End: 03-23-2024 ambulatory TOMASA MOCTEZUMA Not Available Start: 02-29-2024 End: 02-29-2024 ambulatory CHLOE COLMENARES Not Available Start: 10-26-2023 Patient encounter procedure Brennen Nagel WELDING MACHINE OPERATOR RESISTANCE Work Phone: [facility] Start: 07-15-2021 End: 07-16-2021 ambulatory DEANGELO JONES Facility:H1 Start: 03-11-2021 End: 03-12-[address] YIMI INMAN Facility:[facility] Start: 02-19-2021 End: 02-19-2021 ambulatory JUAN DENISE Facility:[facility] Start: 02-16-2021 End: 02-16-2021 ambulatory MELI FREGOSO Facility:[facility]1 Start: 12-10-2020 End: 12-11-[address] NONE LISTED REQUEST Facility: Start: 11-18-2020 End: 11-19-[address] NONE LISTED REQUEST Facility:[facility]1 Procedures Date Procedure Procedure Detail Performing Clinician Start: 04-30-2025 ALL CBC WITH AUTO DIFF Chloe Colmenares WELDING MACHINE OPERATOR RESISTANCE Work Phone: Start: 12-12-2024 MR LUMBAR SPINE WO CON Generic External Data Provider Start: 10-16-2024 ALL CBC WITH AUTO DIFF Chloe Dedra WELDING MACHINE OPERATOR RESISTANCE Work Phone: Start: 10-12-2024 Radex hip unilateral with pelvis 2-3 views Brennen Nagel WELDING MACHINE OPERATOR RESISTANCE Work Phone: Start: 10-10-2024 Hemoglobin glycosyla john a1c Chloe Colmenares WELDING MACHINE OPERATOR RESISTANCE Work Phone: Start: 06-27-2024 ALL BASIC METABOLIC PANEL Chloe Colmenares WELDING MACHINE OPERATOR RESISTANCE Work Phone: Start: 06-27-2024 Radex hip unilateral with pelvis 2-3 views Tomasa Moctezuma DO Work Phone: Start: 05-17-2024 Radex hip unilateral with pelvis 2-3 views Tomasa Moctezuma DO Work Phone: Plan of Treatment Date Care Activity Detail Author Start: 01-15-2027 Glaucoma screening Diabetes: Retinopathy Screening [facility] Start: 11-21-2026 Glaucoma screening Diabetes: Retinopathy Screening [facility] Start: 11-01-2025 End: 11-01-2025 Patient encounter procedure [facility] Start: 05-10-2025 End: 05-10-2025 Patient encounter procedure [facility] Start: 05-08-2025 End: 05-08-2025 Patient encounter procedure 05/08/2025 3:30 PM EDT Office Visit [facility] [address] [place] [phone] Chloe Colmenares NP [address] [place] [phone] [facility] Start: 05-07-2025 Influenza vaccination Influenza Vaccine (#1) [facility] Start: 04-21-2025 Adult BMI Screening Adult BMI Screening [facility] Start: 04-21-2025 Tobacco Screening Tobacco Screening [facility] Start: 04-09-2025 Hemoglobin A1c measurement Diabetes: Hemoglobin A1C [facility] Start: 04-04-2025 End: 04-04-2025 Patient encounter procedure 04/04/2025 2:20 PM EDT Office Visit [facility] [address] [place] [address] Chloe Colmenares, WELDING MACHINE OPERATOR RESISTANCE [address] [place] [phone] [facility] Start: 03-01-2025 Urine screening for protein Diabetes: Urine Protein Screening [facility] Start: 02-21-2025 End: 02-21-2025 Patient encounter procedure 02/21/2025 1:00 PM EDT Office Visit [facility] [address] [place] [address] Chloe Colmenares, WELDING MACHINE OPERATOR RESISTANCE [address] [place] [phone] [facility] Start: 01-22-2025 End: 01-22-2025 Patient encounter procedure 01/22/2025 11:30 AM EDT Office Visit [facility] [address] [place] [phone] Willard Venegas MD [address] [place] [address] [facility] Start: 01-07-2025 Hemoglobin A1c measurement Diabetes: Hemoglobin A1C [facility] Start: 11-21-2024 End: 11-21-2024 Patient encounter procedure 11/21/2024 1:00 PM EDT Office Visit [facility] [address] [place] [address] Chloe Colmenares, WELDING MACHINE OPERATOR RESISTANCE [address] [place] [phone] [facility] Start: 11-02-2024 End: 11-02-2024 Patient encounter procedure [facility] Comment on above: Arrived Start: 10-12-2024 End: 10-12-2024 Patient encounter procedure 10/12/2024 2:00 PM EST [facility] [address] [facility] [place] [phone] Brennen Nagel NP [address] [place], [place] [phone] [facility] Start: 10-10-2024 End: 10-10-2025 Basic metabolic 1998 panel - Serum or Plasma Basic metabolic panel Lab Routine Chronic kidney disease, stage 3b (HCC) ([facility]) Expected: 10/10/2024 (Approximate), Expires: 10/10/2025 [facility] Comment on above: Expected: 10/10/2024 (Approximate), Expi res: 10/10/2025 Start: 10-10-2024 End: 10-10-2025 CBC W Auto Differential panel - Blood CBC and differential Lab Routine Chronic kidney disease, stage 3b (HCC) ([facility]/HCC) Expected: 10/10/2024 (Approximate), Expires: 10/10/2025 [facility] Work Phone: Comment on above: Expected: 10/10/2024 (Approximate), Expi res: 10/10/2025 Start: 10-10-2024 End: 10-10-2024 Patient encounter procedure 10/10/2024 1:00 PM EST Office Visit [facility] [address] [place] [phone] Chloe Colmenares, WELDING MACHINE OPERATOR RESISTANCE [address] [place] [phone] [facility] Start: 08-14-2024 Hemoglobin A1c measurement Diabetes: Hemoglobin A1C [facility] Start: 08-08-2024 End: 08-08-2024 Patient encounter procedure 08/08/2024 11:00 AM EST [facility] Visit [facility] [address] [place] [phone] Brennen Nagel, RADHA [address] [place] [address] [facility] Start: 07-04-2024 End: 07-04-2024 Patient encounter procedure 07/04/2024 1:20 PM EDT Office Visit [facility] [address] [place] [phone] Chloe Colmenares NP [address] [place] [address] Degeneration of intervertebral disc of lumbar region, unspecified whether pain present (Primary Dx); Type 2 diabetes mellitus with diabetic chronic kidney disease (CMS/HCC); Chronic kidney disease, stage 3b (HCC) (CMS/HCC); Unspecified dementia, unspecified severity, without behavioral disturbance, psychotic disturbance, mood disturbance, and anxiety (CMS/HCC) [facility] Comment on above: Degeneration of intervertebral [...] Office Visit [facility] [address] [place] [phone] Tomasa Moctezuma DO [address] [facility] [address] [place] [address] [facility] Start: 06-21-2024 End: 06-21-2024 Patient encounter procedure 06/21/2024 1:40 PM EDT Office Visit [facility] [address] [place] [address] Chloe Colmenares, RADHA [address] [place] [phone] [facility] Start: 05-30-2024 End: 05-30-2024 Patient encounter procedure [facility] Comment on above: Arrived Start: 05-25-2024 End: 05-25-2024 Patient encounter procedure 05/25/2024 10:15 AM EDT Office Visit [facility] [address] [place] [phone] Tomasa Moctezuma, [address] [place] [address] [facility] Start: 05-22-2024 End: 05-22-2024 Patient encounter procedure 05/22/2024 1:20 PM EDT Office Visit [facility] [address] [place] [address] Chloe Colmenares, RADHA [address] [place] [address] [facility] Start: 05-17-2024 End: 05-17-2024 Admission to same day surgery center 05/17/2024 11:45 AM EDT - 05/17/2024 3:15 PM EDT Surgery [facility] [address] [facility] [phone] Tomasa Moctezuma, [address] [place] [address] REPLACEMENT TOTAL JOINT HIP ANTERIOR SUPINE INTERMUSCULAR [73581 (CPT )] [facility] Comment on above: REPLACEMENT TOTAL JOINT HIP ANTERIOR SUP INE INTERMUSCULAR [23232 (CPT )] Start: 05-17-2024 End: 05-17-2024 Arthrp acetblr/prox fem prostc agrft/algrft REPLACEMENT TOTAL JOINT HIP ANTERIOR SUPINE INTERMUSCULAR Degenerative Joint Disease Left Hip 05/17/2024 11:45 AM EDT [facility] Start: 05-17-2024 Subsequent hospital visit by physician 05/17/2024 11:45 AM EDT Hospital Encounter [facility] [address] [place] [phone] Tomasa Moctezuma, DO [address] [place] [address] [facility] Start: 05-17-2024 End: 05-17-2024 Patient encounter procedure 05/17/2024 8:30 AM EDT Procedure Visit [facility] Tomasa Moctezuma, DO [address] [place] [address] [facility] Start: 05-16-2024 End: 05-16-2024 Patient encounter procedure 05/16/2024 11:15 AM EDT Office Visit [facility] [address] [place] [address] Tomasa Moctezuma, DO [address] [place] [address] [facility] Start: 05-07-2024 Influenza vaccination [facility] Start: 04-26-2024 End: 04-26-2026 Echocardiogram 2D complete Echocardiogram 2D complete Echocardiography STAT Type 2 diabetes mellitus with diabetic chronic kidney disease (HCC) ([facility]/HCC) Chronic kidney disease, stage 3b (HCC) ([facility]/HCC) Preoperative clearance Expected: 04/26/2024 (Approximate), Expires: 04/26/2026 [facility] Work Phone: Comment on above: Expected: 04/26/2024 (Approximate), Expi res: 04/26/2026 Start: 04-26-2024 End: 04-26-2024 Patient encounter procedure 04/26/2024 1:00 PM EDT Office Visit [facility] [address] [place] [address] Chloe Colmenares NP [address] [place] [address] [facility] Start: 04-25-2024 End: 04-25-2024 Patient encounter procedure 04/25/2024 11:00 AM EDT Office Visit [facility] [address] [place] [address] [place] [phone] Brennen Nagel, RADHA [address] [place] [address] Primary osteoarthritis of left hip (Primary Dx); Left hip pain [facility] Comment on above: Primary osteoarthritis of left hip (Prim richard Dx); Left hip pain Start: 10-22-2023 Hemoglobin A1c measurement Diabetes: Hemoglobin A1C [facility] Start: 10-19-2023 COVID-19 Vaccine ( season) COVID-19 Vaccine ( season) [facility] Start: 12-18-2003 Fall Risk Screening Fall Risk Screening [facility] Start: 1988 Administration of varicella zoster vaccine Zoster (Shingles) Vaccine (1 of 2) [facility] Start: 1957 DTaP,Tdap and Td Vaccines (1 - Tdap) DTaP,Tdap and Td Vaccines (1 - Tdap) [facility] Start: 1950 Depression Screening Depression Screening [facility] Start: 1948 Glaucoma screening Diabetes: Retinopathy Screening [facility] Start: 1938 Medicare Annual Wellness Visit Medicare Annual Wellness Visit [facility] Hepatic function panel [facility] Immunizations Immunization Date Immunization Notes Care Provider Fa cility 07-04-2024 Seasonal trivalent influenza vaccine, adjuvanted, preservative free Chloe Colmenares NP Work Phone: [facility] 07-04-2024 influenza virus vacc ine, unspecified formulation Chloe Dedra WELDING MACHINE OPERATOR RESISTANCE Work Phone: [facility] 01-06-2024 Pneumococcal Conjuga te PCV 20 Brennen Nagel WELDING MACHINE OPERATOR RESISTANCE Work Phone: [facility] 06-18-2023 Influenza, Seasonal, Quadrivalent, Adjuvanted Brennen Nagel WELDING MACHINE OPERATOR RESISTANCE Work Phone: [facility] 06-18-2023 influenza virus vacc ine, unspecified formulation Brennen Nagel WELDING MACHINE OPERATOR RESISTANCE Work Phone: [facility] 07-02-2022 Influenza, Seasonal, Quadrivalent, Adjuvanted Brennen Nagel WELDING MACHINE OPERATOR RESISTANCE Work Phone: [facility] 06-13-2019 influenza, injectabl e, quadrivalent, preservative free Brennen [place] WELDING MACHINE OPERATOR RESISTANCE Work Phone: [facility] 02-07-2018 pneumococcal polysaccharide vaccine, 23 valent Brennen Nagel WELDING MACHINE OPERATOR RESISTANCE Work Phone: [facility] Payers Date Payer Category Payer Medicare [id number] 2023 Medicare (Managed Care) [employer] ADVANTAGE [id number] 2023 Private Health Insurance 2022 Medicare [id number] 1959 Medicare [id number] 1959 Self-pay [id number] 1959 Unknown [id number] 1938 Unknown [id number] 2.16.840.1.171024.3.579.2 .593 1938 Unknown [id number] 2.16.840.1.918959.3.579.2 .593 1938 Unknown [id number] 2.16.840.1.160621.3.579.2 .593 1938 Unknown [id number] 2.16.840.1.200854.3.579.2 .128 1938 Unknown [id number] 2.16.840.1.140770.3.579.2 .128 1938 Unknown [id number] 2.16.840.1.261645.3.579.2 .128 1938 Unknown [id number] 2.16.840.1.408508.3.579.2 .128 1938 Unknown [id number] 2.16.840.1.459734.3.579.2 .128 1938 Unknown [id number] 2.16.840.1.880779.3.579.2 .196 1938 Unknown [id number] 2.16.840.1.749521.3.579.2 .125 1938 Unknown [id number] 2.16.840.1.674557.3.579.2 .125 1938 Unknown [id number] 2.16.840.1.754550.3.579.2 .125 1938 Unknown [id number] 2.16.840.1.998914.3.579.2 .125 1938 Unknown [id number] 2.16.840.1.415052.3.579.2 .125 1938 Unknown [id number] 2.16.840.1.700126.3.579.2 .125 1938 Unknown [id number] 2.16.840.1.264503.3.579.2 .1258 1938 Unknown [id number] 2.16.840.1.163885.3.579.2 .1258 1938 Unknown [id number] 2.16.840.1.348516.3.579.2 .1258 1938 Unknown [id number] 2.16.840.1.600406.3.579.2 .1258 1938 Unknown [id number] 2.16.840.1.545304.3.579.2 .1258 1938 Unknown [id number] 2.840.1.013759.3.579.2 .1258 1938 Unknown [id number] 2.840.1.756014.3.579.2 .1258 1938 Unknown [id number] 2.840.1.179344.3.579.2 .1258 1938 Unknown [id number] 2.840.1.241227.3.579.2 .1258 1938 Unknown [id number] 2.840.1.985113.3.579.2 .1258 1938 Unknown [id number] 2.840.1.348708.3.579.2 .1258 1938 Unknown [id number] 2.840.1.616315.3.579.2 .1258 1938 Unknown [id number] 2.840.1.034332.3.579.2 .1258 1938 Unknown [id number] 2.840.1.678537.3.579.2 .125 Medicare Medicare Outpatient [id number] [id number] Unknown [id number] 2.840.1.919007.3.579.2 .593 Unknown [id number] 2.840.1.412908.3.579.2 .593 Unknown [id number] 2.16.840.1.775149.3.579.2 .593 Social History Date Type Detail Facility Start: 03-28-2020 End: 04-23-2023 Tobacco smoking status NHIS Never smoked tobacco [facility] Start: 03-28-2020 [...] beverage intake Current drinker of alcohol (finding) [facility] How often to you hav e a drink containing alcohol? Monthly or less [facility] How many standard dr inks containing alcohol do you have on a typical day? 1 or 2 [facility] Do you feel stress - tense, restless, nervous, or anxious, or unable to sleep at night because your mind is troubled all the time - these days [OSQ] To some extent [facility] Start: 03-28-2020 Alcohol Comment rare [facility] Work Phone: Sex Female (finding) [facility] Start: 1940 Sex Assigned At Female F [facility] Medical Equipment Procedure Code Equipment Code Equipment Origin al Text Equipment Identifier Dates Linr Actb 52mm 3 6mm Altrx Hip - Sna - [id number] Start: 04-25-2020 Cup Actb 52mm Pn cl Sect Hip - Sna - [id number] Start: 04-25-2020 Stm Fem 150mm 12 mm Crl Amt Ti - Sna - [id number] Start: 04-25-2020 Hd Fem 36mm -2mm 08/19 Tpr - Sna - [id number] Start: 04-25-2020 Elmntr Hl Drlc P ncl Hip Mrthn - Sna - [id number] Start: 04-25-2020 Gabe-09/07/2005 [id number] Start: 09-07-2005 Scr Hip Canc Cnn Gription 15mm - Sna - [id number] Start: 04-25-2020 Scr Hip Canc Cnn Gription 30mm - Sna - [id number] Start: 04-25-2020 Cup Actb 54mm Pn cl Sect Hip - Sna - [id number] ()[id number] 7)[id number]( 21)NATALYA [id number] FDA Start: 05-17-2024 Liner Actb 54mm 36mm Ntrl Altrx - Sna - [id number] ()[id number](1 7)[id number])[id number](2 1)NATALYA [id number] FDA Start: 05-17-2024 Stem Fem 150mm 1 2mm Crl Amt Ti - Sna - [id number] ()[id number](1 7)[id number]( 21)NATALYA [id number] FDA Start: 05-17-2024 Head Fem 36mm +1 .5mm 12/14 - Sna - [id number] (01)[id number](1 7)[id number])[id number] 6(21)NA, [id number] FDA Start: 05-17-2024 Elminator Hl Drl c Pncl Hip Mrthn - Sna - [id number] (01)[id number](1 7)[id number](10)[id number] 7(21)NA, [id number] FDA Start: 05-17-2024 Screw Hip Canc C nn Gription 30mm - Sna - [id number] (01)[id number](1 7)[id number](10)[id number] 8(21)NA, [id number] FDA Start: 05-17-2024 Screw Hip Canc C nn Gription 30mm - Sna - [id number] (01)[id number](1 7)[id number](10)[id number] 9(21)NA, [id number] FDA Start: 05-17-2024 Goals Date [...] - ROSY BOLAÑOS - 03/14/2025 5:04 PM EDTLfaye Colmenares NP - 02/21/2025 1:00 PM EDTPatient Instructions Note Date & Type Note Facility 03-14-2025 Telephone encounter Note Text Regional Engineer Yes, this is Sandra Franklin calling. Returning your call, she asked me about the the oxycodone. And yes, I do think it has helped me some and no, I do not have any side effects. So if she could call in a prescription, please let me know. Thank you. [facility] 03-14-2025 Miscellaneous Notes Text Regional Engineer Yes, this is Sandra Franklin calling. Returning your call, she asked me about the the oxycodone. And yes, I do think it has helped me some and no, I do not have any side effects. So if she could call in a prescription, please let me know. Thank you. documented in this encounter [facility] 02-21-2025 History of Presen t illness Narrative [...] MG tablet Chronic kidney disease, stage 3b (CMS-HCC) Control HTN and DM Monitor labs at [...] Associated Problem(s): Chronic kidney disease, stage 3b ([facility]-HCC) Control HTN and DM Monitor labs at minimum yearly and prn Labs 10/31: BUN 32, Cr 1.59, with gfr 31 Associated Problem(s): Essential hypertension Please check blood pressure daily and record DASH diet Limit caffeine Take medication as directed Contact office if chest pain, pressure, dizziness, shortness of breath, swelling legs Recommend slow position changes Current med: cardizem, valsartan/HCTZ documented in this encounter [facility] 02-21-2025 Instructions Chloe Colmenares NP - 02/21/2025 1:00 PM EDT No longer take tramadol We will trial Percocet (oxycodone/acetaminophen) 1 pill daily, do NOT take more than 1 pill daily, call me on 03/05/25 to let me know if it is helping. Make sure you are drinking plenty of fluids, monitor to make sure no increase in confusion documented in this encounter [facility] 11-02-2024 History of Presen t illness Narrative [...] Visit: 1 year documented in this encounter [facility] 10-13-2024 Telephone encounter Note Contact pt, I have reviewed her notes from ortho. Is she ok with me reaching out to Pain Mgmt to see about where theyare are at with getting MRI and send her back there?? [place] [facility] 10-13-2024 Miscellaneous Notes Contact pt, I have reviewed her notes from ortho. Is she ok with me reaching out to Pain Mgmt to see about where theyare are at with getting MRI and send her back there?? [place] documented in this encounter [facility] 10-12-2024 History of Presen t illness Narrative [...] Unremarkable left total hip arthroplasty. Brennen Nagel ELECTRICAL LOGGING ENGINEER-BUTTONHOLE FACER Procedures Orders Placed This Encounter Procedures XR [...] requiring urgent evaluation. documented in this encounter [facility] 10-10-2024 History of Anjelica salomon illness Narrative Associated Problem(s): DDD (degenerative disc disease), lumbar Cont tramadol, OARRS reviewed At last appt she was referred to pain mgmt at [facility], she was seen it was recommended [...] being taken. She does not see a structural steel shop supervisor.Eye exam is not current. Hypertension This is [...] History: Diagnosis Date Actinic keratosis Acute glaucoma ([facility]) 10/26/2023 Allergic rhinitis 10/26/2023 Arthritis 10/26/2023 Cancer ([facility]) 10/26/2023 Chronic low back pain, unspecified back [...] List Items Addressed This Visit Essential hypertension ([facility]) - Primary Please check blood pressure daily [...] capsule 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 (CMS/HCC) Check blood sugars daily, notify if <70 [...] (Hb A1C) docked device (Completed) Other hyperlipidemia (CMS/[facility]) Relevant Medications simvastatin (Zocor) 10 MG tablet DDD (degenerative disc disease), lumbar Cont tramadol, OARRS reviewed Chronic kidney disease, stage 3b (HCC) (CMS/[facility]) Continue with monitoring labs prn Relevant Orders CBC and differential Basic metabolic panel Memory impairment of gradual onset Relevant Medications donepezil (Aricept) 5 MG tablet Type 2 diabetes mellitus with diabetic chronic kidney disease (CMS/HCC) Unspecified dementia, unspecified severity, without behavioral disturbance, psychotic disturbance, mood disturbance, and anxiety (CMS/[facility]) Currently taking aricept, lives on her own, continues to drive, cooking and paying bills Associated Problem(s): 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 (CMS/HCC) Check blood sugars daily, notify if <70 [...] Problem(s): Chronic kidney disease, stage 3b (HCC) ([facility]) Continue with monitoring labs prn Associated Problem(s): Essential hypertension ([facility]) Please check blood pressure daily and record DASH diet Limit caffeine Take medication as directed Contact office if chest pain, pressure, dizziness, shortness of breath, swelling legs Recommend slow position changes Current med: cardizem, valsartan/HCTZ Associated Problem(s): Unspecified dementia, unspecified severity, without behavioral disturbance, psychotic disturbance, mood disturbance, and anxiety ([facility]) Currently taking aricept, lives on her own, continues to drive, cooking and paying bills documented in this encounter [facility] 10-10-2024 Instructions Chloe Colmenares NP - 10/10/2024 1:00 PM EST Get labs check Follow up in 3 months documented in this encounter [facility] 07-04-2024 History of Presen t illness Narrative [...] History: Diagnosis Date Actinic keratosis Acute glaucoma ([facility]) 10/26/2023 Allergic rhinitis 10/26/2023 Arthritis 10/26/2023 Cancer ([facility]) 10/26/2023 Chronic low back pain, unspecified back [...] diabetes mellitus with diabetic chronic kidney disease ([facility]/HCC) - Primary Remains off meds, d/t renal function, most current A1c test is 5.2% on 05/15/24 and that is without any diabetic meds Unspecified dementia, unspecified severity, without behavioral disturbance, psychotic disturbance, mood disturbance, and anxiety (CMS/HCC) Currently taking aricept, lives on her own, continues to drive, cooking and paying bills Needs flu shot Relevant Orders Flu vaccine, trivalent, adjuvanted, PF ([id number]) (Fluad trivalent single dose syringe) Associated Problem(s): Type 2 diabetes mellitus with diabetic chronic kidney disease ([facility]) Remains off meds, d/t renal function, most [...] and paying bills documented in this encounter [facility] 07-04-2024 Instructions Chloe Colmenares NP - 07/04/2024 1:20 PM EDT Pain Management [facility], they should be calling you, if no response by 07/16/24 call me back documented in this encounter [facility] 06-27-2024 History of Presen t illness Narrative [...] History: Diagnosis Date Actinic keratosis Acute glaucoma ([facility]) 10/26/2023 Allergic rhinitis 10/26/2023 Arthritis 10/26/2023 Cancer ([facility]) 10/26/2023 Chronic low back pain, unspecified back [...] if she desires a referral to another deployment specialist we would be happy to make referral, she states she would like to continue her care here. Dr. Moctezuma obtained history and examined the patient, I am acting as scribe for Dr. Moctezuma/SILVER LUQUE D.O. documented in this encounter [facility] 06-08-2024 Telephone encounter Note PT CALLED ASKING TO GET A REFILL ON HER [facility] NEEDS A NEW PRESCRIPTION [facility] 06-08-2024 Miscellaneous Notes PT CALLED ASKING TO GET A REFILL ON HER [facility] NEEDS A NEW PRESCRIPTION documented in this encounter [facility] 05-30-2024 History of Presen t illness Narrative [...] History: Diagnosis Date Actinic keratosis Acute glaucoma ([facility]) 10/26/2023 Allergic rhinitis 10/26/2023 Arthritis 10/26/2023 Cancer ([facility]) 10/26/2023 Chronic low back pain, unspecified back [...] Moctezuma/leo Moctezuma D.O. documented in this encounter [facility] 05-25-2024 History of Presen t illness Narrative [...] History: Diagnosis Date Actinic keratosis Acute glaucoma ([facility]) 10/26/2023 Allergic rhinitis 10/26/2023 Arthritis 10/26/2023 Cancer (CMS/HCC) 10/26/2023 Chronic low back pain, unspecified back [...] Moctezuma/leo Moctezuma D.O. documented in this encounter [facility] 05-24-2024 History of Presen t illness Narrative [...] out: 10:25 am Total time: 25 minutes 29551 Gait training x 15 minutes 58527 TherEx x 10 minutes Pain Management: The [...] a smooth motion = 1. Balance Score: 04/21. Indication of gait: No hesitancy = 1. [...] functional transfers and bed mobility with independence. Rn Employee Health Goals (4-6 weeks) Goal 1 : Patient [...] up next week. documented in this encounter [facility] 05-22-2024 History of Presen t illness Narrative [...] out: 10:25 am Total time: 25 minutes 88622 Gait training x 15 minutes 22855 TherEx x 10 minutes Pain Management: The [...] functional transfers and bed mobility with independence. Rn Employee Health Goals (4-6 weeks) Goal 1 : Patient [...] is very impulsive. documented in this encounter [facility] 05-20-2024 History of Presen t illness Narrative [...] out: 12:50 pm Total time: 45 minutes 73459 Gait training x 15 minutes 31559 TherEx x 10 minutes 87853 Eval x 20 minutes. Pain Management: The [...] functional transfers and bed mobility with independence. Skilled Nursing Goals (4-6 weeks) Goal 1 : Patient [...] return to OF documented in this encounter [facility] 05-19-2024 Telephone encounter Note Post op pain rx. PDMP reviewed. Initial rx was sent to mail pharmacy by mistake. That rx was cancelled [facility] [place] Patient notified. [facility] 05-19-2024 Miscellaneous Notes Post op pain rx. PDMP reviewed. Initial rx was sent to mail pharmacy by mistake. That rx was cancelled and [facility] [place] Patient notified. documented in this encounter [facility] 05-19-2024 Nurse Note AVS reviewed with the patient and signed. All questions answered and concerns addressed. Meds reviewed that need to be picked up from the pharmacy and administration times. The need to go to follow up appt 05-25 reviewed. All belongings returned. IV removed. Pt transferred to w/c plus one assist. Pt wheeled to lobby for roller picker by staff. Transport being provided by family to home. [facility] 05-19-2024 Nurse Note AVS reviewed with the patient and signed. All questions answered and concerns addressed. Meds reviewed that need to be picked up from the pharmacy and administration times. The need to go to follow up appt 05-25 reviewed. All belongings returned. IV removed. Pt transferred to w/c plus one assist. Pt wheeled to lobby for roller picker by staff. Transport being provided by family to home. documented in this encounter [facility] 05-19-2024 Hospital course Narrative Orthopaedic Discharge Summary Patient ID: Sandra Franklin [id number] y.o. 1940 Admit date: 05/17/2024 Discharge [...] Studies: Daily hemoglobin and hematocrit Hospital Course:See [facility] inpatient notes for specifics Patient [...] APRN-CNP 05/19/24 1200 [facility] Progress note Formatting of t his note is different from the original. Occupational Therapy CANCEL - Refusal attempted OT treatment, pt reports that she is leaving this afternoon and wants to wait until closer to discharge time before she gets dressed, declines OT at this time. OT to continue to follow. [facility] Work Phone: 05-19-2024 Miscellaneous Notes Occupational Therapy [...] at the bedside 7. Instruct patient/ patient patient financial representative about use of safety devices 8. Include patient/ patient patient financial representative in decisions related to safety Outcome: [...] belt. Weight Bearing Status: WBAT L LE Telemetry/Tuyere Fitter: No Oxygen Used: Room air. Other: S/P [...] Date/Time User Outcome 05/19/24 0746 Laya Cohen, AUDIO VISUAL COLLECTIONS COORDINATOR Progressing 05/18/24 1317 Palak Jones, PT Progressing [...] Date/Time User Outcome 05/19/24 0746 Laya Cohen, AUDIO VISUAL COLLECTIONS COORDINATOR Progressing 05/18/24 1317 Palak Jones, PT Progressing [...] Date/Time User Outcome 05/19/24 0746 Laya Cohen, AUDIO VISUAL COLLECTIONS COORDINATOR Progressing 05/18/24 1054 Palak Jones, PT Progressing Goal note from Hospital Encounter 03/29/2024 by Laya Cohen PTA Completion of x3 six inch steps. Problem: Standing Balance Dates: Start: 05/17/24 Disciplines: PT Goal: Improve balance to good Dates: Start: 05/17/24 Expected End: 05/26/24 Description: To reduce risk of falls. Disciplines: PT Outcomes Date/Time User Outcome 05/19/24 0746 Laya Cohen, AUDIO VISUAL COLLECTIONS COORDINATOR Progressing 05/18/24 1317 Palak Joens, PT Progressing 05/18/24 1054 Palak Jones, PT Progressing Goal note from Hospital Encounter 03/29/2024 by Palak Jones PT Evaluation of progress towards goal: fair Problem: Transfers Dates: Start: 05/17/24 Disciplines: PT Goal: Patient will perform transfers with Supervision Dates: Start: 05/17/24 Expected End: 05/26/24 Description: To demonstrate improved LE strength/endurance. Disciplines: PT Outcomes Date/Time User Outcome 05/19/24 0746 Laya Cohen, AUDIO VISUAL COLLECTIONS COORDINATOR Progressing 05/18/24 1317 Palak Jones, PT Progressing [...] Description: INTERVENTIONS: 1. Encourage patient or legal patient financial representative to report early pain and ask [...] per policy 9. Teach patient or legal patient financial representative interventions for comforting Outcome: Progressing Note: [...] at the bedside 7. Instruct patient/ patient patient financial representative about use of safety devices 8. Include patient/ patient patient financial representative in decisions related to safety Outcome: [...] hygiene technique 7. Identify and instruct patient/patient patient financial representative in use of appropriate isolation precautions for identified infection/symptoms 8. Provide and discuss with patient/patient patient financial representative on educational MDRO sheet 9. Encourage and monitor nutritional status daily and consult behavioral assistant if indicated 10. Implement neutropenic guidelines as needed 11. Review exposure to history of communicable disease and recent travel history on admission 12. Encourage annual influenza vaccine 13. Encourage pneumonia vaccine Outcome: Progressing Note: Evaluation of progress towards goal: Pt shows no signs of infection. Pt afebrile. Problem: Low Risk Fall Score Description: Calderon Fall Score of 0 - 24 or indicated by [facility] Rehab Assessment Goal: Patient should be free from fall Description: Interventions: 1. [place] to environment 2. Hourly rounds addressing the [...] non-skid footwear 11. Teach patient and patient patient financial representative to maintain environment for safety and [...] Treatment Precautions Activity: Ok to treat per RN, Saritha Equipment: rolling walker, nonskid socks Weight Bearing Status: WBAT L LE Telemetry/Tuyere Fitter: No Other: S/P L FISH Pain Assessment [...] plan is to D/C to home with [facility]. Met with pt, educated on role of SW & reason for visit; pt informs goal is to return home at DC & have [facility] provide in home therapy. Pt lives [...] difficulty affording home medications; preferred pharmacy is [facility] in [place]. Sticky note left in chart regarding D/C plan; sheet writer following for safe care transition. 05/18/24 1204 Discharge Disposition Discharge Disposition Home with Home Health ([facility]) County Information County of [facility] Patient Information Primary Caregiver Self Support System Immediate family Stressors Type of stressor (Denies any stressors) Income Information Income Information Retired/Pension/Social Security Referral To Community Resources Denies needs Discharge Planning Living Arrangements Alone Support Systems Children;Family members;Confucianist/adam community;Friends Assistance Needed Pt denies any DC needs, questions or concerns. She has support from her dtr if needed. Type of Residence Private residence Private Residence [address] [place] Res[address] Accessibility Steps into home Number of Steps 2 Home Care Services No Community Agencies Currently Utilized Other (Comment) ([facility]) Established DME Comments Has all needed DME: Denies any new needs. Patient expects to be discharged to: DC to home with [facility]. Does the patient need discharge transport arranged? Yes Services Requested: Services Requested Discharge Disposition: Home with self care, Home with home health services Facility/Service Name: [facility] Facility/Service Fax number: [phone] Facility/Service Does the patient need discharge transportation [...] 04/25/2020 Performed by Tomasa Moctezuma DO at [facility] TONSILLECTOMY TUBAL LIGATION 6 Clicks: Basic Mobility [...] socks Weight Bearing Status: WBAT L LE Telemetry/Tuyere Fitter: No Other: S/P L FISH Pain Assessment [...] Preop examination Problem: Knowledge Deficit Goal: Patient/patient patient financial representative demonstrates understanding of disease process, treatment [...] Description: INTERVENTIONS: 1. Encourage patient or legal patient financial representative to report early pain and ask [...] per policy 9. Teach patient or legal patient financial representative interventions for comforting Outcome: Progressing Note: [...] at the bedside 7. Instruct patient/ patient patient financial representative about use of safety devices 8. Include patient/ patient patient financial representative in decisions related to safety Outcome: Progressing Note: Evaluation of progress towards goal: Patient will remain free from falls. Room is clear of clutter, non- slip footwear is provided. Will continue to monitor. Problem: Knowledge Deficit Goal: Patient/patient patient financial representative demonstrates understanding of disease process, treatment [...] of 0 - 24 or indicated by [facility] Rehab Assessment Goal: Patient should be free from fall Description: Interventions: 1. [place] to environment 2. Hourly rounds addressing the [...] non-skid footwear 11. Teach patient and patient patient financial representative to maintain environment for safety and engage in all aspects of fall prevention program Outcome: Progressing Note: Evaluation of progress towards goal: Patient will remain free from falls. Room is clear of clutter, non- slip footwear is provided. Will continue to monitor. Problem: Knowledge Deficit Goal: Patient/patient patient financial representative demonstrates understanding of disease process, treatment [...] Moctezuma DO Anesthesia: Anesthesiologist: Miles Johnson MD BRANCH BANKER: Khris Hernandez APRN-BRANCH BANKER Monitored Anesthesia Care, Spinal OR staff: Senior Software Development Engineer Primary: Melida Pope RN Scrub Person: Joel Gomez; ST Manju Senior Software Development Engineer Orientee: Joe Mcelroy RNfacing baster: Shyanne Garcia Estimated blood loss: 200 Complications: [...] was incised and the hip was dislocated [id number] was noted. The femoral head neck was [...] dressings were applied. documented in this encounter [facility] 05-19-2024 Plan of care note Problem: Safety [...] at the bedside 7. Instruct patient/ patient patient financial representative about use of safety devices 8. Include patient/ patient patient financial representative in decisions related to safety Outcome: Progressing Note: Evaluation of progress towards goal: Pt is free of injury, safe environment provided and maintained, medication administered as ordered, hand hygiene completed. Additional Comments: [facility] 05-19-2024 Progress note Formatting of t [...] belt. Weight Bearing Status: WBAT L LE Telemetry/Tuyere Fitter: No Oxygen Used: Room air. Other: S/P [...] Date/Time User Outcome 05/19/24 0746 Laya Cohen AUDIO VISUAL COLLECTIONS COORDINATOR Progressing 05/18/24 1317 Palak Jones PT Progressing [...] Laya Cohen PTA Progressing 05/18/24 1317 Palak Jones PT Progressing [...] note and education documentation for this visit. [facility] 05-18-2024 Plan of care note Problem: Pain Goal: Patient goal is pain score less than 4, able to rest, and participant in treatment plan as appropriate Description: INTERVENTIONS: 1. Encourage patient or legal patient financial representative to report early pain and ask [...] per policy 9. Teach patient or legal patient financial representative interventions for comforting Outcome: Progressing Note: [...] at the bedside 7. Instruct patient/ patient patient financial representative about use of safety devices 8. Include patient/ patient patient financial representative in decisions related to safety Outcome: [...] hygiene technique 7. Identify and instruct patient/patient patient financial representative in use of appropriate isolation precautions for identified infection/symptoms 8. Provide and discuss with patient/patient patient financial representative on educational MDRO sheet 9. Encourage and monitor nutritional status daily and consult behavioral assistant if indicated 10. Implement neutropenic guidelines as [...] be free from fall Description: Interventions: 1. [place] to environment 2. Hourly rounds addressing the [...] non-skid footwear 11. Teach patient and patient patient financial representative to maintain environment for safety and engage in all aspects of fall prevention program Outcome: Progressing Note: Evaluation of progress towards goal: Patient will remain free from falls. Room is clear of clutter, non- slip footwear is provided. Will continue to monitor. [facility] 05-18-2024 History of Presen t illness Narrative [...] Prasad 05/18/24 1422 documented in this encounter [facility] 05-18-2024 Progress note Formatting of umm chiu note is different from the original. Physical [...] socks Weight Bearing Status: WBAT L LE Telemetry/Tuyere Fitter: No Other: S/P L FISH Pain Assessment [...] no resolved problems. Principal Problem: Preop examination [facility] 05-18-2024 Progress note Formatting of t his note is different from the original. Images from the original note were not included. DISCHARGE PLANNING NOTE Consult received, chart reviewed: plan is to D/C to home with [facility]. Met with pt, educated on role [...] difficulty affording home medications; preferred pharmacy is [facility] in [place]. Sticky note left in chart regarding D/C plan; sheet writer following for safe care transition. 05/18/24 1204 Discharge Disposition Discharge Disposition Home with Home Health ([facility]) County Information County of [facility] Patient Information Primary Caregiver Self Support System Immediate family Stressors Type of stressor (Denies any stressors) Income Information Income Information Retired/Pension/Social Security Referral To Community Resources Denies needs Discharge Planning Living Arrangements Alone Support Systems Children;Family members;Confucianist/adam community;Friends Assistance Needed Pt denies any DC needs, questions or concerns. She has support from her dtr if needed. Type of Residence Private residence Private Residence [address] [place] Residence Accessibility Steps into home Number of Steps 2 Home Care Services No Community Agencies Currently Utilized Other (Comment) ([facility]) Established DME Comments Has all needed DME: Denies any new needs. Patient expects to be discharged to: DC to home with [facility]. Does the patient need discharge transport arranged? Yes Services Requested: Services Requested Discharge Disposition: Home with self care, Home with home health services Facility/Service Name: [facility] Facility/Service Fax number: [phone] Facility/Service Does the patient need discharge transportation arranged?: No Initial DC Assessment Completed: Yes DC Planning Complete Discharge Milestones: Yes Patient Goals: Patient/Caregiver Goals Patient/Caregiver Goals: Home with Outpatient Service Provider Goals: Goals Home (pt-stated) Evaluation of progress towards goal: Safe dc transition from hospital to home with family support and [facility] 05-18-2024 Progress note Formatting of t his [...] 04/25/2020 Performed by Tomasa Moctezuma DO at [facility] TONSILLECTOMY TUBAL LIGATION 6 Clicks: Basic Mobility [...] 6 Clicks: Basic Mobility Raw Score: 20 [facility] G Code Modifier: CJ Therapy Plan Need [...] socks Weight Bearing Status: WBAT L LE Telemetry/Tuyere Fitter: No Other: S/P L FISH Pain Assessment [...] Jones, PT Evaluation of progress towards goal: tolerated [...] no resolved problems. Principal Problem: Preop examination [facility] 05-18-2024 Plan of care note Problem: Knowledge Deficit Goal: Patient/patient patient financial representative demonstrates understanding of disease process, treatment [...] goal: Continue to assess for when appropriate. [facility] 05-18-2024 Note XR HIP LT 2-3 [...] Akash Sorensen MD on 05/18/2024 12:10 AM [facility] 05-18-2024 Note Clinical history: Postoperative evaluation. Comparisons: [...] Akash Sorensen MD on 05/18/2024 12:10 AM [facility] 05-17-2024 Plan of care note Problem: Pain Goal: Patient goal is pain score less than 4, able to rest, and participant in treatment plan as appropriate Description: INTERVENTIONS: 1. Encourage patient or legal patient financial representative to report early pain and ask [...] per policy 9. Teach patient or legal patient financial representative interventions for comforting Outcome: Progressing Note: [...] at the bedside 7. Instruct patient/ patient patient financial representative about use of safety devices 8. Include patient/ patient patient financial representative in decisions related to safety Outcome: Progressing Note: Evaluation of progress towards goal: Patient will remain free from falls. Room is clear of clutter, non- slip footwear is provided. Will continue to monitor. Problem: Knowledge Deficit Goal: Patient/patient patient financial representative demonstrates understanding of disease process, treatment [...] of 0 - 24 or indicated by [facility] Rehab Assessment Goal: Patient should be free from fall Description: Interventions: 1. [place] to environment 2. Hourly rounds addressing the [...] non-skid footwear 11. Teach patient and patient patient financial representative to maintain environment for safety and engage in all aspects of fall prevention program Outcome: Progressing Note: Evaluation of progress towards goal: Patient will remain free from falls. Room is clear of clutter, non- slip footwear is provided. Will continue to monitor. [facility] 05-17-2024 Plan of care note Problem: Knowledge Deficit Goal: Patient/patient patient financial representative demonstrates understanding of disease process, treatment [...] goal: Continue to assess for when appropriate. [facility] 05-17-2024 Procedure note Summary: Left hip [...] Moctezuma DO Anesthesia: Anesthesiologist: Miles Johnson MD BRANCH BANKER: Khris Hernandez APRN-LATONIA Monitored Anesthesia Care, Spinal OR staff: Senior Software Development Engineer Primary: Melida Pope RN Scrub Person: Joel Gomez; ST Manju Senior Software Development Engineer Orientee: Joe Mcelroy RNfacing baster: Shyanne Garcia Estimated blood loss: 200 Complications: [...] was incised and the hip was dislocated [id number] was noted. The femoral head neck was [...] 0.5% Marcaine plain. Sterile dressings were applied. [facility] 05-17-2024 Attending History and physical note HISTORY AND PHYSICAL INTERVAL NOTE: Sandra Franklin [id number] H&P reviewed. The patient was examined and there are no changes to the H&P. Tomasa Moctezuma DO Source Note - Tomasa Moctezuma DO - 05/12/2024 1:18 PM EDT [facility] 05-17-2024 History and physical note HISTORY AND PHYSICAL INTERVAL NOTE: Sandra Franklin [id number] H&P reviewed. The patient was examined and there are no changes to the H&P. Tomasa Moctezuma DO Source Note - Tomasa Moctezuma DO - 05/12/2024 1:18 PM EDT documented in this encounter [facility] 05-16-2024 Telephone encounter Note Rx for postoperative pain [facility] 05-16-2024 Miscellaneous Notes Rx for postoperative pain documented in this encounter [facility] 05-15-2024 History of Presen t illness Narrative [facility] Ortho 360 in home PT 3x/week or daily if needed - no active abduction for 6 weeks post op - gait train w/walker - WBAT - permanent hip dislocation protocol. documented in this encounter [facility] 04-26-2024 History of Presen t illness Narrative [...] sleep apnea Specialist: Dr Cj Moctezuma at [facility] This is a chronic problem. The current [...] History: Diagnosis Date Actinic keratosis Acute glaucoma ([facility]) 10/26/2023 Allergic rhinitis 10/26/2023 Arthritis 10/26/2023 Cancer ([facility]) 10/26/2023 Chronic low back pain, unspecified back [...] Echocardiogram 2D complete documented in this encounter [facility] 04-25-2024 History of Presen t illness Narrative [...] LT Hip [facility] 09/23/22, XR 03/23/24 [facility]. Prehab and HEP started 04/13. Pt recently referred to [facility] pain clinic for lumbar DDD. History [...] History: Diagnosis Date Actinic keratosis Acute glaucoma ([facility]) 10/26/2023 Allergic rhinitis 10/26/2023 Arthritis 10/26/2023 Cancer ([facility]) 10/26/2023 Chronic low back pain, unspecified back [...] Comments denies dribbling. Incontinence denies. Musculoskeletal: CommentsSee [facility] for details. Skin: Rash denies. Neurologic: [...] IMAGING: March 23, 2024 x-rays from the [facility] office AP pelvis and frog lateral of the left hip demonstrate stable appearing right total hip replacement. Cave-am-tbly in the left hip with subchondral sclerosis [...] Moctezuma/leo Moctezuma D.O. documented in this encounter [facility] 04-21-2024 Instructions Elda West RN - 04/21/2024 [...] in at the main lobby of the [facility]- registration desk is straight ahead as soon as you walk in. Tell them you are here for surgery. 2. If you have a Living Will/Durable Power of C Iron Worker for Health Care that is not on [...] after you have bathed. 5. NO nail malagasy/acrylic on at least one finger. If you are having a hand, wrist or foot surgery then all nail malagasy and artificial/acrylic nails must be removed from [...] please call the P[facility] office at [phone], Mon.-Fri. 7 a.m.-3 p.m. Leave a voicemail [...] Stop taking 0 days prior to procedure efgzxsqa-hxdh-TN-calcium &mins (THERAGRAN-M) 9 mg iron-400 mcg tablet [...] with your doctor. 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, unspecified type documented in this encounter [facility]* Diagnosis Encounter for subsequent annual wellness visit (AWV) in Medicare patient- Primary Essential hypertension ([facility]) Unspecified essential hypertension Other hyperlipidemia ([facility]) 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, without long-term current use of insulin ([facility]) DDD (degenerative disc disease), lumbar Degeneration of lumbar or lumbosacral intervertebral disc Stage 3b chronic kidney disease (HCC) ([facility]) Routine general medical examination at health care facility Routine general medical examination at a health care facility Essential hypertension ([facility]/HCC)- Primary Unspecified essential hypertension Stage 3b chronic kidney disease (HCC) ([facility]) DDD (degenerative disc disease), lumbar Degeneration of lumbar or lumbosacral intervertebral disc Seasonal allergic rhinitis, unspecified trigger DDD (degenerative disc disease), lumbar- Primary Degeneration of lumbar or lumbosacral intervertebral disc 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, without long-term current use of insulin ([facility]) Essential hypertension ([facility]) Unspecified essential hypertension Stage 3b chronic kidney disease (HCC) ([facility]) Other hyperlipidemia ([facility]) Unintentional weight loss Loss of weight 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, 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 Preoperative clearance- Primary Unspecified pre-operative examination Type 2 diabetes mellitus with diabetic chronic kidney disease ([facility]) Chronic kidney disease, stage 3b (HCC) ([facility]) Unspecified dementia, unspecified severity, without behavioral disturbance, psychotic disturbance, mood disturbance, and anxiety ([facility]) Essential hypertension ([facility]) Unspecified essential hypertension Primary osteoarthritis of left hip- Primary S/P total left hip arthroplasty documented in this encounter [facility] HealthcareEvaluation [facility]* Diagnosis Encounter for subsequent annual wellness visit (AWV) in Medicare patient- Primary Essential hypertension ([facility]) Unspecified essential hypertension Other hyperlipidemia ([facility]) 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, without long-term current use of insulin ([facility]) DDD (degenerative disc disease), lumbar Degeneration of lumbar or lumbosacral intervertebral disc Stage 3b chronic kidney disease (HCC) ([facility]) Routine general medical examination at health care facility Routine general medical examination at a health care facility Essential hypertension ([facility]/HCC)- Primary Unspecified essential hypertension Stage 3b chronic kidney disease (HCC) ([facility]) DDD (degenerative disc disease), lumbar Degeneration of lumbar or lumbosacral intervertebral disc Seasonal allergic rhinitis, unspecified trigger DDD (degenerative disc disease), lumbar- Primary Degeneration of lumbar or lumbosacral intervertebral disc 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, without long-term current use of insulin ([facility]) Essential hypertension ([facility]) Unspecified essential hypertension Stage 3b chronic kidney disease (HCC) ([facility]) Other hyperlipidemia ([facility]) Unintentional weight loss Loss of weight 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, 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 Preoperative clearance- Primary Unspecified pre-operative examination Type 2 diabetes mellitus with diabetic chronic kidney disease ([facility]) Chronic kidney disease, stage 3b (HCC) ([facility]) Unspecified dementia, unspecified severity, without behavioral disturbance, psychotic disturbance, mood disturbance, and anxiety ([facility]) Essential hypertension ([facility]) Unspecified essential hypertension Type 2 diabetes mellitus with diabetic chronic kidney disease ([facility])- Primary Chronic kidney disease, stage 3b (HCC) ([facility]) Unspecified dementia, unspecified severity, without behavioral disturbance, psychotic disturbance, mood disturbance, and anxiety ([facility]) Degeneration of intervertebral disc of lumbar region, [...] mellitus with diabetic chronic kidney disease (HCC) ([facility]) Chronic kidney disease, stage 3b (HCC) ([facility]) Unspecified dementia, unspecified severity, without behavioral disturbance, psychotic disturbance, mood disturbance, and anxiety ([facility]) Essential hypertension ([facility]) Unspecified essential hypertension documented in this encounter [facility]* Diagnosis Essential hypertension ([facility]) Unspecified essential hypertension documented in this encounter [...] gradual onset Other hyperlipidemia (CMS/HCC) Essential hypertension (CMS/[facility]) Unspecified essential hypertension documented in this encounter [...] disturbance, psychotic disturbance, mood disturbance, and anxiety ([facility]/HCC) Type 2 diabetes mellitus with diabetic chronic kidney disease (CMS/HCC) Chronic kidney disease, stage 3b (HCC) ([facility]) 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, without long-term current use of insulin ([facility]) 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, 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 Other hyperlipidemia ([facility]) Degeneration of intervertebral disc of lumbar region with discogenic back pain and lower extremity pain- Primary documented in this encounter [facility]* Diagnosis Encounter for subsequent annual wellness visit (AWV) in Medicare patient- Primary Essential hypertension ([facility]) Unspecified essential hypertension Other hyperlipidemia ([facility]) 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, without long-term current use of insulin ([facility]) DDD (degenerative disc disease), lumbar Degeneration of lumbar or lumbosacral intervertebral disc Stage 3b chronic kidney disease (HCC) ([facility]/HCC) Routine general medical examination at health care facility Routine general medical examination at a health care facility Essential hypertension ([facility]/HCC)- Primary Unspecified essential hypertension Stage 3b chronic kidney disease (HCC) ([facility]/HCC) DDD (degenerative disc disease), lumbar Degeneration of lumbar or lumbosacral intervertebral disc Seasonal allergic rhinitis, unspecified trigger DDD (degenerative disc disease), lumbar- Primary Degeneration of lumbar or lumbosacral intervertebral disc 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, without long-term current use of insulin (CMS/HCC) Essential hypertension (CMS/HCC) Unspecified essential hypertension Stage 3b chronic kidney disease (HCC) ([facility]/HCC) Other hyperlipidemia (CMS/HCC) Unintentional weight loss Loss of weight 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, 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 Preoperative clearance- Primary Unspecified pre-operative examination Type 2 diabetes mellitus with diabetic chronic kidney disease (CMS/HCC) Chronic kidney disease, stage 3b (HCC) ([facility]) Unspecified dementia, unspecified severity, without behavioral disturbance, psychotic disturbance, mood disturbance, and anxiety (CMS/HCC) Essential hypertension ([facility]/HCC) Unspecified essential hypertension 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 Chronic kidney disease, stage 3b (HCC) ([facility]/HCC) Unspecified dementia, unspecified severity, without behavioral disturbance, psychotic disturbance, mood disturbance, and anxiety ([facility]/HCC) Degeneration of intervertebral disc of lumbar region, unspecified whether pain present Needs flu shot Need for prophylactic vaccination and inoculation against influenza Essential hypertension ([facility]/HCC)- Primary Unspecified essential hypertension Unspecified dementia, unspecified severity, without behavioral disturbance, psychotic disturbance, mood disturbance, and anxiety ([facility]/HCC) Type 2 diabetes mellitus with diabetic chronic kidney disease ([facility]/HCC) Chronic kidney disease, stage 3b (HCC) ([facility]) 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, without long-term current use of insulin ([facility]) 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, 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 Other hyperlipidemia ([facility]) documented in this encounter [facility]* Diagnosis Encounter for subsequent annual wellness visit (AWV) in Medicare patient- Primary Essential hypertension ([facility]) Unspecified essential hypertension Other hyperlipidemia ([facility]) 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, without long-term current use of insulin ([facility]) DDD (degenerative disc disease), lumbar Degeneration of lumbar or lumbosacral intervertebral disc Stage 3b chronic kidney disease (HCC) ([facility]) Routine general medical examination at health care facility Routine general medical examination at a health care facility Essential hypertension ([facility]/HCC)- Primary Unspecified essential hypertension Stage 3b chronic [...] hypertension Stage 3b chronic kidney disease (HCC) ([facility]/HCC) Other hyperlipidemia (CMS/HCC) Unintentional weight loss Loss [...] Primary Chronic kidney disease, stage 3b (HCC) (/HCC) Unspecified dementia, unspecified severity, without behavioral disturbance, psychotic disturbance, mood disturbance, and anxiety (CMS/HCC) Degeneration of intervertebral disc of lumbar region, unspecified whether pain present Needs flu shot Need for prophylactic vaccination and inoculation against influenza Essential hypertension (/HCC)- Primary Unspecified essential hypertension Unspecified dementia, unspecified severity, without behavioral disturbance, psychotic disturbance, mood disturbance, and anxiety (/) 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) Chronic kidney disease, stage 3b (HCC) (/) 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, without long-term current use of insulin (/) 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, 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 Other hyperlipidemia (/[facility]) S/P total left hip arthroplasty- Primary Left hip pain Pain in joint, pelvic region and thigh documented in this encounter [facility] HealthcareEvaluation note* Diagnosis Preop examination- Primary Unspecified pre-operative examination Preop examination Unspecified pre-operative examination 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, unspecified whether intermediate project manager insulin use ([facility]) Status post total hip replacement, left [facility] Diagnosis Encounter for subsequent annual wellness visit (AWV) in Medicare patient- Primary Essential hypertension (/HCC) Unspecified essential hypertension Other hyperlipidemia (/[facility]) 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, without long-term current use of insulin (/HCC) DDD (degenerative disc disease), lumbar Degeneration of lumbar or lumbosacral intervertebral disc Stage 3b chronic kidney disease (HCC) (/HCC) Routine general medical examination at health care facility Routine general medical examination at a health care facility Essential hypertension (CMS/HCC)- Primary Unspecified essential hypertension Stage 3b chronic kidney disease (HCC) (/HCC) DDD (degenerative disc disease), lumbar Degeneration of lumbar or lumbosacral intervertebral disc Seasonal allergic rhinitis, unspecified trigger DDD (degenerative disc disease), lumbar- Primary Degeneration of lumbar or lumbosacral intervertebral disc 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, without long-term current use of insulin ([facility]/HCC) Essential hypertension ([facility]/HCC) Unspecified essential hypertension Stage 3b chronic kidney disease (HCC) ([facility]/HCC) Other hyperlipidemia ([facility]/HCC) Unintentional weight loss Loss of weight 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, 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 Preoperative clearance- Primary Unspecified pre-operative examination Type 2 diabetes mellitus with diabetic chronic kidney disease (CMS/HCC) Chronic kidney disease, stage 3b (HCC) ([facility]/HCC) Unspecified dementia, unspecified severity, without behavioral disturbance, psychotic disturbance, mood disturbance, and anxiety ([facility]/HCC) Essential hypertension ([facility]/HCC) Unspecified essential hypertension Type 2 diabetes mellitus with diabetic chronic kidney disease ([facility]/HCC)- Primary Chronic kidney disease, stage 3b (HCC) ([facility]) Unspecified dementia, unspecified severity, without behavioral disturbance, psychotic disturbance, mood disturbance, and anxiety ([facility]) Degeneration of intervertebral disc of lumbar region, unspecified whether pain present Needs flu shot Need for prophylactic vaccination and inoculation against influenza Essential hypertension ([facility]/HCC)- Primary Unspecified essential hypertension Unspecified dementia, unspecified severity, without behavioral disturbance, psychotic disturbance, mood disturbance, and anxiety ([facility]/HCC) Type 2 diabetes mellitus with diabetic chronic kidney disease ([facility]/HCC) Chronic kidney disease, stage 3b (HCC) ([facility]) 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, without long-term current use of insulin ([facility]) 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, 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 Other hyperlipidemia ([facility]/HCC) Seborrheic keratosis- Primary Lentigines Herpesviral vesicular dermatitis [...] intervertebral disc Stage 3b chronic kidney disease ([facility]-HCC) Routine general medical examination at health care facility Routine general medical examination at a health care facility Essential hypertension- Primary Unspecified essential hypertension Stage 3b chronic kidney disease ([facility]) DDD (degenerative disc disease), lumbar Degeneration of lumbar or lumbosacral intervertebral disc Seasonal allergic rhinitis, unspecified trigger DDD (degenerative disc disease), lumbar- Primary Degeneration of lumbar or lumbosacral intervertebral disc 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, without long-term current use of insulin (HCC) Essential hypertension Unspecified essential hypertension Stage 3b chronic kidney disease ([facility]-HCC) Other hyperlipidemia Unintentional weight loss Loss of weight 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, 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 Preoperative clearance- Primary Unspecified pre-operative examination Type 2 diabetes mellitus with diabetic chronic kidney disease (HCC) Chronic kidney disease, stage 3b ([facility]-HCC) Unspecified dementia, unspecified severity, without behavioral disturbance, psychotic disturbance, mood disturbance, and anxiety (HCC) Essential hypertension Unspecified essential hypertension Type 2 diabetes mellitus with diabetic chronic kidney disease (HCC)- Primary Chronic kidney disease, stage 3b ([facility]) Unspecified dementia, unspecified severity, without behavioral disturbance, [...] disease (HCC) Chronic kidney disease, stage 3b ([facility]-HCC) 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, without [...] essential hypertension Chronic kidney disease, stage 3b ([facility]-HCC) Type 2 diabetes mellitus with stage 3 [...] essential hypertension Chronic kidney disease, stage 3b ([facility]-HCC) 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, 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 Other hyperlipidemia documented in this encounter [facility] HealthcareEvaluation note* Diagnosis Encounter for subsequent annual wellness visit (AWV) in Medicare patient- Primary Essential hypertension Unspecified essential hypertension Other hyperlipidemia 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, without long-term current use of insulin (HCC) DDD (degenerative disc disease), lumbar Degeneration of lumbar or lumbosacral intervertebral disc Stage 3b chronic kidney disease ([facility]-HCC) Routine general medical examination at health care facility Routine general medical examination at a health care facility Essential hypertension- Primary Unspecified essential hypertension Stage 3b chronic kidney disease ([facility]-HCC) DDD (degenerative disc disease), lumbar Degeneration of lumbar or lumbosacral intervertebral disc Seasonal allergic rhinitis, unspecified trigger DDD (degenerative disc disease), lumbar- Primary Degeneration of lumbar or lumbosacral intervertebral disc 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, without long-term current use of insulin (HCC) Essential hypertension Unspecified essential hypertension Stage 3b chronic kidney disease ([facility]-HCC) Other hyperlipidemia Unintentional weight loss Loss of [...] essential hypertension Chronic kidney disease, stage 3b ([facility]-HCC) Type 2 diabetes mellitus with stage 3 [...] intervertebral disc Stage 3b chronic kidney disease (CMS-HCC) Routine general medical examination at health care facility Routine general medical examination at a health care facility Essential hypertension- Primary Unspecified essential hypertension Stage 3b chronic kidney disease (CMS-HCC) DDD (degenerative disc disease), lumbar Degeneration of [...] disease (HCC) Chronic kidney disease, stage 3b ([facility]-HCC) 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, without [...] essential hypertension Chronic kidney disease, stage 3b ([facility]CC) Type 2 diabetes mellitus with stage 3 [...] essential hypertension Chronic kidney disease, stage 3b ([facility]-HCC) 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, 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 Other hyperlipidemia Degeneration of intervertebral disc of lumbar region with discogenic back pain and lower extremity pain documented in this encounter [facility] HealthcareEvaluation note* Diagnosis Encounter for subsequent annual wellness visit (AWV) in Medicare patient- Primary Essential hypertension Unspecified essential hypertension Other hyperlipidemia 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, without long-term current use of insulin ([facility]) DDD (degenerative disc disease), lumbar Degeneration of lumbar or lumbosacral intervertebral disc Stage 3b chronic kidney disease ([facility]-HCC) Routine general medical examination at health care facility Routine general medical examination at a health care facility Essential hypertension- Primary Unspecified essential hypertension Stage 3b chronic kidney disease ([facility]-HCC) DDD (degenerative disc disease), lumbar Degeneration of lumbar or lumbosacral intervertebral disc Seasonal allergic rhinitis, unspecified trigger DDD (degenerative disc disease), lumbar- Primary Degeneration of lumbar or lumbosacral intervertebral disc 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, without long-term current use of insulin (HCC) Essential hypertension Unspecified essential hypertension Stage 3b chronic kidney disease ([facility]-HCC) Other hyperlipidemia Unintentional weight loss Loss of [...] hypertension Chronic kidney disease, stage 3b (CMS-HCC) Type 2 diabetes mellitus with stage 3 [...] lower extremity pain documented in this encounter [facility] HealthcareEvaluation note* Diagnosis Onset Date Resolution Status Admit Date Chronic lumbar pain acute Septe 2024 3:32pm Transaminitis acute May 082024 3:32pm [facility] Work Phone: Hospital Discharge instructionsNot on filedocumented in this encounterCity Hospital SystemReason for referral (narrative)No reason for referral information availableUniversity Hospitals [facility] Work Phone: Summary Purpose Family History No Family History Records FoundNo Family History Records FoundNo Family History Records FoundNo Family History Records Found Advance Directives Date Activated Date Inactivated Comments 04/25/2020 12:34 PM 04/27/2020 4:26 PM Date Activated Date Inactivated Comments 05/16/2024 12:51 PM 05/19/2024 6:29 PM Date Activated Date Inactivated Comments 04/25/2020 12:34 PM 04/27/2020 4:26 PM Advance Directive Response Recorded Date/ Time Advance Directives No May 3:30pm Reason for Referral Specialty Diagnoses / Procedures Referred By Raeannac t Referred To Contact Radiology Diagnoses Type 2 diabetes mellitus with diabetic chronic kidney disease (HCC) ([facility]/HCC) Chronic kidney disease, stage 3b (HCC) ([facility]) Preoperative clearance Procedures Echocardiogram 2D complete Chloe Colmenares NP [address] [place] [address] [facility] [address] [place] [address] Referral ID Status Reason Start Date Expiration Date Visits Requested Visits Authorized [id number] Incomplete Perform Procedure 04/26/2024 10/23/2024 1 1 Specialty Diagnoses / Procedures Referred By Contac t Referred To Contact Physical Therapy Diagnoses Primary osteoarthritis of left hip Procedures NC OFFICE/OUTPATIENT NEW HIGH MDM 60 MINUTES Brennen Nagel, WELDING MACHINE OPERATOR RESISTANCE [address] [place] [address] Mary Mckoy, PT [address] [place] [address] Referral ID Status Reason Start Date Expiration Date Visits Requested Visits Authorized [id number] Pending Review Specialty Services Required 05/15/2024 11/11/2024 1 1 Specialty Diagnoses / Procedures Referred By Contac t Referred To Contact Diagnoses Status post total hip replacement, left Procedures Discharge medication instruction-no alcohol while taking pain medications Brennen Nagel, ELECTRICAL LOGGING ENGINEER-BUTTONHOLE FACER [address] [place] [address] Referral ID Status Reason Start Date Expiration Date V isits Requested Visits Authorized [id number] Pending Review 05/19/2024 05/19/2025 1 1 Specialty Diagnoses / Procedures Referred By Contac t Referred To Contact Diagnoses Status post total hip replacement, left Procedures Discharge instruction after anesthesia/sedation Brennen Nagel, ELECTRICAL LOGGING ENGINEER-BUTTONHOLE FACER [address] [place] [address] Referral ID Status Reason Start Date Expiration Date V isits Requested Visits Authorized [id number] Pending Review 05/19/2024 05/19/2025 1 1 Specialty Diagnoses / Procedures Referred By Contac t Referred To Contact Procedures Follow-up with MD 7-14 days after surgery Brennen Nagel, ELECTRICAL LOGGING ENGINEER-BUTTONHOLE FACER [address] [place] [address] Referral ID Status Reason Start Date Expiration Date V isits Requested Visits Authorized [id number] Pending Review 05/19/2024 05/19/2025 1 1 Specialty Diagnoses / Procedures Referred By Contac t Referred To Contact Procedures Dressing instructions- keep incision clean and dry Brennen Nagel, ELECTRICAL LOGGING ENGINEER-BUTTONHOLE FACER [address] [place] [address] Referral ID Status Reason Start Date Expiration Date V isits Requested Visits Authorized [id number] Pending Review 05/19/2024 05/19/2025 1 1 Specialty Diagnoses / Procedures Referred By Contac t Referred To Contact Procedures Hygiene- may shower Brennen Nagel, ELECTRICAL LOGGING ENGINEER-BUTTONHOLE FACER [address] [place] [address] Referral ID Status Reason Start Date Expiration Date V isits Requested Visits Authorized [id number] Pending Review 05/19/2024 05/19/2025 1 1 Specialty Diagnoses / Procedures Referred By Contac t Referred To Contact Diagnoses Status post total hip replacement, left Procedures Apply ice to affected area Brennen Nagel, ELECTRICAL LOGGING ENGINEER-BUTTONHOLE FACER [address] [place] [address] Referral ID Status Reason Start Date Expiration Date V isits Requested Visits Authorized [id number] Pending Review 05/19/2024 05/19/2025 1 1 Specialty Diagnoses / Procedures Referred By Contac t Referred To Contact Diagnoses Status post total hip replacement, left Procedures Wear JOHN hose- on in morning, off at night Brennen Nagel, ELECTRICAL LOGGING ENGINEER-BUTTONHOLE FACER [address] [place] [address] Referral ID Status Reason Start Date Expiration Date V isits Requested Visits Authorized [id number] Pending Review 05/19/2024 05/19/2025 1 1 Specialty Diagnoses / Procedures Referred By Contac t Referred To Contact Procedures Elevate surgical leg above heart while sitting Brennen Nagel, ELECTRICAL LOGGING ENGINEER-BUTTONHOLE FACER [address] [place] [address] Referral ID Status Reason Start Date Expiration Date V isits Requested Visits Authorized [id number] Pending Review 05/19/2024 05/19/2025 1 1 Chief Complaint and Reason for Visit Chief Complaint Admit Date Office visit May 08, 2025 3:32pm Reason for Visit Admit Date Chronic lumbar pain May 08, 2025 3:32pm Transaminitis May 08, 2025 3:32pm Additional Source Comments INFORMATION SOURCE (unrecogn ized section and content) DATE CREATED AUTHOR 08/11/2021 [facility] DATE CREATED AUTHOR AUTHOR'S ORGANIZ ATION 05/21/2024 [facility] DATE CREATED AUTHOR AUTHOR'S ORGANIZ ATION 07/14/2024 [facility] DATE CREATED AUTHOR AUTHOR'S ORGANIZ ATION 02/24/2025 [...] HIP Jose Elias, Tomasa A, DO [address] [place] [address] [place] [address] Referral ID Status Reason Start Date Expiration Date Visits Re quested Visits Authorized [id number] 1 1 Reason Comments Suspicious Skin Lesion Reason Comments Med Refill Reason Onset Date Comments Med Refill 03/14/2025 Reason Onset Date Comments Med Refill 04/04/2025 Care Teams (unrecognized sec tion and content) Sports Marketer Relationship Specialty Start Date End Date Soy Walton MD [address] [place] [address] PCP - General Family Medicine 10/19/23 Chloe Colmenares NP Referring Physician Family Medicine 05/11/23 Sports Marketer Relationship Specialty Start Date End Date Soy Walton MD [address] [place] [address] PCP - General Family Medicine 10/19/23 Chloe Colmenares NP Referring Physician Family Medicine 05/11/23 Sports Marketer Relationship Specialty Start Date End Date Unallocated, Logan Boland MD [facility] [place] [address] PCP - General Family Medicine 06/21/24 Chloe Colmenares NP Referring Physician Family Medicine 05/11/23 Sports Marketer Relationship Specialty Start Date End Date Unallocated, [place] [address] PCP - General Family Medicine 06/21/24 Chloe Colmenares NP Referring Physician Family Medicine 05/11/23 Sports Marketer Relationship Specialty Start Date End Date Unallocated, Logan Boland MD [address] [place] [address] PCP - General Family Medicine 06/21/24 Chloe Colmenares NP Referring Physician Family Medicine 05/11/23 Sports Marketer Relationship Specialty Start Date End Date Unallocated, Logan Boland MD [address] [facility] [address] PCP - General Family Medicine 06/21/24 Chloe Colmenares NP Referring Physician Family Medicine 05/11/23 Sports Marketer Relationship Specialty Start Date End Date Soy Walton MD [address] [place] [address] PCP - General Family Medicine 07/04/24 Chloe Colmenares NP [address] [place] [address] Nurse Practitioner Family Medicine 07/04/24 Sports Marketer Relationship Specialty Start Date End Date Soy Walton MD [address] [place] [address] PCP - General Family Medicine 10/19/23 Chloe Colmenares NP Referring Physician Family Medicine 05/11/23 Sports Marketer Relationship Specialty Start Date End Date Soy Walton MD [address] [place] [phone] PCP - General Family Medicine 10/19/23 Chloe Colmenares NP Referring Physician Family Medicine 05/11/23 Sports Marketer Relationship Specialty Start Date End Date Soy Walton MD [address] [place] [phone] PCP - General Family Medicine 10/19/23 Chloe Colmenares NP Referring Physician Family Medicine 05/11/23 Sports Marketer Relationship Specialty Start Date End Date Soy Walton MD [address] [place] [address] PCP - General Family Medicine 10/19/23 Chloe Colmenares NP Referring Physician Family Medicine 05/11/23 Sports Marketer Relationship Specialty Start Date End Date Soy Walton MD [address] [place] [address] PCP - General Family Medicine 10/19/23 Chloe Colmenares NP Referring Physician Family Medicine 05/11/23 Sports Marketer Relationship Specialty Start Date End Date Soy Walton MD [address] [place] [address] PCP - General Family Medicine 10/19/23 Chloe Colmenares NP Referring Physician Family Medicine 05/11/23 Sports Marketer Relationship Specialty Start Date End Date Soy Walton MD [address] [place] [phone] PCP - General Family Medicine 10/19/23 Chloe Colmenares NP Referring Physician Family Medicine 05/11/23 Sports Marketer Relationship Specialty Start Date End Date Soy Walton MD [address] [place] [phone] PCP - General Family Medicine 10/19/23 Chloe Colmenares NP Referring Physician Family Medicine 05/11/23 Sports Marketer Relationship Specialty Start Date End Date Soy Walton MD [address] [place] [phone] PCP - General Family Medicine 10/19/23 Chloe Colmenares NP Referring Physician Family Medicine 05/11/23 Sports Marketer Relationship Specialty Start Date End Date Soy Walton MD [address] [place] [phone] PCP - General Family Medicine 10/19/23 Chloe Colmenares NP Referring Physician Family Medicine 05/11/23 Sports Marketer Relationship Specialty Start Date End Date Soy Walton MD [address] [place] [address] PCP - General Family Medicine 10/19/23 Chloe Colmenares NP Referring Physician Family Medicine 05/11/23 Sports Marketer Relationship Specialty Start Date End Date Soy Walton MD [address] [place] [address] PCP - General Family Medicine 07/04/24 Chloe Colmenares NP [address] [place] [address] Nurse Practitioner Family Medicine 07/04/24 Sports Marketer Relationship Specialty Start Date End Date Soy Walton MD [address] [place] [address] PCP - General Family Medicine 07/04/24 Chloe Colmenares NP [address] [place] [address] Nurse Practitioner Family Medicine 07/04/24 Sports Marketer Relationship Specialty Start Date End Date Soy Walton MD [address] [place] [address] PCP - General Family Medicine 07/04/24 Chloe Colmenares NP [address] [place] [address] Nurse Practitioner Family Medicine 07/04/24 Sports Marketer Relationship Specialty Start Date End Date Soy Walton MD [address] [place] [phone] PCP - General Family Medicine 07/04/24 Chloe Colmenares NP [address] [place] [address] Nurse Practitioner Family Medicine 07/04/24 Sports Marketer Relationship Specialty Start Date End Date Soy Walton MD [address] [place] [phone] PCP - General Family Medicine 07/04/24 Chloe Colmenares NP [address] [place] [address] Nurse Practitioner Family Medicine 07/04/24 Sports Marketer Relationship Specialty Start Date End Date Soy Walton MD [address] [place] [phone] PCP - General Family Medicine 07/04/24 Chloe Colmenares NP [address] [place] [phone] Nurse Practitioner Family Medicine 07/04/24 Sports Marketer Relationship Specialty Start Date End Date Yimi Inman DO [address] [place] [address] [id number] PCP - General Family Medicine 03/28/20 Sports Marketer Relationship Specialty Start Date End Date Chloe Colmenares, ELECTRICAL LOGGING ENGINEER-BUTTONHOLE FACER [address] [place] [address] PCP - General Nurse Practitioner 05/15/24 Sports Marketer Relationship Specialty Start Date End Date Soy Walton MD [address] [place] [address] PCP - General Family Medicine 07/04/24 Chloe Colmenares NP [address] [place] [address] Nurse Practitioner Family Medicine 07/04/24 Sports Marketer Relationship Specialty Start Date End Date Soy Walton MD [address] [place] [address] PCP - General Family Medicine 07/04/24 Chloe Colmenares NP [address] [place] [address] Nurse Practitioner Family Medicine 07/04/24 Sports Marketer Relationship Specialty Start Date End Date Soy Walton MD [address] [place] [address] PCP - General Family Medicine 07/04/24 Chloe Colmenares NP [address] [place] [address] Nurse Practitioner Family Medicine 07/04/24 Sports Marketer Relationship Specialty Start Date End Date Soy Walton MD [address] [place] [address] PCP - General Family Medicine 07/04/24 Chloe Colmenares NP [address] [place] [address] Nurse Practitioner Family Medicine 07/04/24 Sports Marketer Relationship Specialty Start Date End Date Soy Walton MD [address] [place] [address] PCP - General Family Medicine 07/04/24 Chloe Colmenares NP [address] [place] [address] Nurse Practitioner Family Medicine 07/04/24 Sports Marketer Relationship Specialty Start Date End Date Soy Walton MD [address] [place] [address] PCP - General Family Medicine 07/04/24 Chloe Colmenares NP [address] [place] [address] Nurse Practitioner Family Medicine 07/04/24 Sports Marketer Relationship Specialty Start Date End Date Soy Walton MD [address] [place] [address] PCP - General Family Medicine 07/04/24 Chloe Colmenares NP [address] [place] [address] [phone] (work) Nurse Practitioner Family Medicine 07/04/24 Team Status: Active Member Role Status Dates Chloe Colmenares Primary Care Provider Active Team Status: Inactive Member Role Status Dates Chloe Colmenares Primary Care Provider Active Sta rt: May 08, 2025 End: May 08, 2025 Chloe Colmenares Attending Provider Active Start: May 08, 2025 End: May 08, 2025 Scheduled Active and Recently Administ ered Medications (unrecognized section and content) Medication Order 05/17/2024 05/18/2024 05/19/2024 acetaminophen (TYLENOL EXTRA STRENGTH) tablet 1,000 mg 1,000 mg, oral, Every 6 hours scheduled, First dose on Wed05/17/24 at 1800, Start 6 hours after the pre-op dose. 1759 (Given - Provider: Yesica Gaytan RN)2314 (Given - Provider: Liliya Graham RN) 0516 (Given - Provider: Liliya Graham, SILVER)1248 (Given - Provider: Yesica Gaytan RN)1807 (Given - Provider: Shama Machado, SILVER)2309 (Given - Provider: Liliya Graham, SILVER) 0600 (Given - Provider: Liliya Graham, SILVER)1310 (Given - Provider: Shirin Montoya, SILVER) acetaminophen (TYLENOL) tablet 650 mg (COMPLETED) 650 [...] 2115 (New Bag - Provider: Liliya Graham RN)214 (Stop Bag - Provider: Liliya Graham RN) [...] Surgical prophylaxis 1233 (Given - Provider: Khris Hernandez, ELECTRICAL LOGGING ENGINEER-BRANCH BANKER) celecoxib (CeleBREX) capsule 200 mg (COMPLETED) 200 mg, oral, Once, On Wed05/17/24 at 1030, For 1 dose, Pre-op, Look-alike/sound-alike medication - verify indication for use. 1026 (Given - Provider: Marisa Paul, SILVER) ferrous sulfate tablet 325 mg 325 mg, oral, 2 times daily with meals, First dose on Wed05/17/24 at 1700, Give ferrous sulfate 2 hours before or 4 hours after antacids. 1610 (Given - Provider: Yesica Gaytan RN) 0918 (Given - Provider: Yesica Gaytan RN)1710 (Given - Provider: Shama Machado, SILVER) 0800 (Given - Provider: Shirin Montoya RN) [...] Paul RN)1212 (Continued by Anesthesia - Provider: Khris Hernandez APRN-BRANCH BANKER)1325 (Anesthesia Volume Adjustment - Provider: PATEL SainiBRANCH BANKER)1357 (Stop Bag - Provider: JAMIA Saini) sodium [...] Machado RN)0050 (Restarted - Provider: Shama Machado RN)005 (Paused - Provider: Shama Machado, RN)0054 (Paused - Provider: Shama Machado, RN)0054 (Paused - Provider: Shama Machado RN)0054 [...] 1610 (See Alternative - Provider: Yesica Gaytan RN)2115 (See Alternative - Provider: Liliya Graham RN) 010 (See Alternative - Provider: Liliya Graham RN)0516 (See Alternative - Provider: Liliya Graham RN)0918 (See Alternative - Provider: Yesica Gaytan RN)1253 (See Alternative - Provider: Yesica Gaytan RN)1807 (See Alternative - Provider: Shama Machado RN)213 (See Alternative - Provider: Liliya Graham RN) [...] release. 1610 (Given - Provider: Yesica Gaytan RN)2115 (Given - Provider: Liliya Graham RN) 0104 [...] - verify indication for use. Immediate release. Goals (unrecognized section and content) Goals may be documented in a n alternate section FOR RECORDS PERTAINING TO PATIENTS WHO ARE [...] BE BASED ON THE PRIMARY CLINICAL RECORDS. [place]. provides no warranty or guarantee of the accuracy or completeness of information in this document.
== END 2025-05-22 13:21 | disposition home or self-care (01) ==
LOC: LAB 13:21
PROVIDERS: PCP Nurse Practitioner; Visit Provider Nurse Practitioner
DX: R74.01 Elevation of levels of liver transaminase levels (principal)
CPT/HCPCS: 36415; 80076

== ENCOUNTER 2025-08-21 13:58 | Outpatient (OUT) | payer MEDICARE, SELFPAY ==
--- OUTSIDE RECORDS SUMMARY | 2025-08-21 14:01 | XMS_ITS | Clinical Summary ---
Author Organization [facility] Address [address] [place] [address] Care Team Providers Care Machinist 2Nd Shift Name Role Phone Chloe Colmenares CHEMICAL ENGINEERING PROFESSOR Unavailable [phone] Soy Walton MD Primary Care Provider [phone] Allergies Active AllergyReactionsCriticalityNoted KamoKzyizurbVbdugq19/20/2020 BURNING IN HER SKIN. DOES NOT RECALL HAVING A RASH Pollen JouuxgpQkb89/20/2020 Medications MedicationSigDispense QuantityRefillsLast FilledStart DateEnd DateStatus acetaminophen (Tylenol) 500 MG tablet Take 500 mg by mouth every 6 (six) hours if neededActive melatonin 10 MG tablet Take 10 mg by mouth as needed at bedtime (insomia)Active amoxicillin (Amoxil) 500 MG tablet Indications:S/P total left hip arthroplasty4 tabs PO once 30-60 mins before procedure with food 4 tablet 5Active ammonium lactate (Lac-Hydrin) 12 % lotion Indications:Seborrheic keratosisApply to affected areas on body daily. 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, unspecified type Take 1 capsule (120 mg) by mouth Daily 90 capsule 5Active valsartan-hydroCHLOROthiazide (Diovan-HCT) 80-12.5 MG tablet Indications:Essential hypertensionTake 1 tablet by mouth Daily 90 tablet 5Active donepezil (Aricept) 5 MG tablet Indications:Memory impairment of gradual onsetTAKE 1 TABLET (5 MG) BY MOUTH AT BEDTIME 90 tablet 5Active simvastatin (Zocor) 10 MG tablet Indications:Other hyperlipidemiaTAKE 1 TABLET (10 MG) BY MOUTH AT BEDTIME 90 tablet 5Active Active Problems ProblemNoted DateDiagnosed DateEncounter for screening mammogram for malignant neoplasm of aeollq9511/21/2024 Assessment & Plan (11/21/2024 1:57 PM EDT): Addressed and declined Needs flu shot07/04/2024Status post left hip rptxeknuxdj27/14/2024Acute postoperative pain of left hip05/20/2024ifficulty /14/2024Primary osteoarthritis of left hip05/20/2024Type 2 diabetes mellitus with diabetic chronic kidney fwftqpl9904/26/2024 Assessment & Plan (11/21/2024 6:40 AM EDT): Remains off meds, d/t renal function, most current A1c test is 5.3% on 10/10/24 and that is without any diabetic meds Assessment & Plan (07/04/2024 6:51 AM EDT): Remains off meds, d/t renal function, most current A1c test is 5.2% on 05/15/24 and that is without any diabetic meds Assessment & Plan (04/26/2024 1:45 PM EDT): Off metformin d/t elevation in creatinine Improved after stopping, her recent sugar test was 122 Will keep off meds at this time, most recent A1c test on 500mg metformin was 5.1% 02/27 Preoperative vepbmyopv75/21/2024 Assessment & Plan (05/09/2024 11:00 AM EDT): BP stable CKD: improved DM: no current meds Will review EKG, reviewed labs from 04/21/24, and will order ECHO ECHO is WNL, EKG is normal as well Pt is cleared for surgery Unintentional weight loss02/29/2024 Assessment & Plan (02/29/2024 1:58 PM EDT): ? Pain related Check labs will add thyroid as well Memory impairment of gradual onset12/21/2023 Assessment & Plan (11/21/2024 1:28 PM EDT): Currently taking aricept MOCA: Jkjmbhnotwn84/20/2024DD (degenerative disc disease), ccmixs3010/26/2023 Overview (04/04/2025): Med agreement 03/02/24, 02/21/2025 Assessment & Plan (02/21/2025 1:29 PM EDT): Med agreement: 02/21/25 OARRS reviewed No longer to give tramadol No NSAID d/t renal function, muscle relaxer d/t age Will try percocet 5/325mg once daily #14 no refill Assessment & Plan (11/21/2024 1:56 PM EDT): Is going to complete Pain mgmt paper work and schedule Assessment & Plan (10/10/2024 4:16 PM EST): Cont tramadol, OARRS reviewed At last appt she was referred to pain mgmt at [facility], she was seen it was recommended that she have anupdated MRI, she went one time for appt and has not heard from them since It is of note she is seeing ortho this week for eval of her left hip pain (hx recent replacement) pending their opinion we will decide if going back to pain mgmt is approved DD: hip pain , vs lumbar radiculopathy Assessment & Plan (07/04/2024 1:59 PM EDT): Cont tramadol, OARRS reviewed Referr to Pain mgmt Assessment & Plan (02/29/2024 1:58 PM EDT): Reviewed MRI from 06/[address] moctezuma, pt is upset that she endures so much pain that something has to be done I will increase her tramadol to TID and add ES tylenol with each dose Refer to [facility] Pain Mgmt Unsure if weight loss is related to her chronic pain Assessment & Plan (11/29/2023 3:17 PM EDT): Takes tramadol prn for this pain Will continue this, OARRS reviewed Did go to pain mgmt in the past, then could not help her any more Sees dr Moctezuma for her lumbar spine, had an MRI , next appt 04/29 Assessment & Plan (10/26/2023 3:48 PM EST): Continue with tramadol BID for chronic back pain OARRS reviewed, med aggreement from 01/27 Qchhfxssx75/20/2024hronic low back pain, unspecified back pain laterality, unspecified whether sciatica smheoby0710/26/2023 Assessment & Plan (11/21/2024 6:40 AM EDT): Takes tramadol prn pain Allergic /20/2024 Assessment & Plan (11/29/2023 2:28 PM EDT): Requests to have steroid shot, explained that treatment should include nasal allergy medication andanti histamine, she will trial loratidine Acute bqafstze23/20/2024Squamous cell carcinoma of skin of trunk10/26/2023 History of right hip /20/2024Encounter for subsequent annual wellness visit (AWV) in Medicare byibkyw2910/26/2023 Assessment & Plan (11/21/2024 6:41 AM EDT): Reviewed Ht/Wt/BMI Recommend eye exam yearly Recommend dental exams twice a year Exercises is recommended most days of the week (appropriate as chronic conditions allow) Follow up yearly and prn Assessment & Plan (10/26/2023 4:19 PM EST): Reviewed Ht/Wt/BMI Recommend eye exam yearly Recommend dental exams twice a year Exercises is recommended most days of the week (appropriate as chronic conditions allow) Follow up yearly and prn Chronic kidney disease, stage 3b10/26/2023 Assessment & Plan (02/21/2025 6:18 AM EDT): Control HTN and DM Monitor labs at minimum yearly and prn Labs 10/31: BUN 32, Cr 1.59, with gfr 31 Assessment & Plan (11/21/2024 6:39 AM EDT): Control HTN and DM Monitor labs at minimum yearly and prn Labs 10/31: BUN 32, Cr 1.59, with gfr 31 Assessment & Plan (10/10/2024 6:56 AM EST): Continue with monitoring labs prn Assessment & Plan (07/04/2024 6:50 AM EDT): Continue with monitoring labs prn Assessment & Plan (04/26/2024 1:43 PM EDT): Improved with stopping metformin and diclofenac Assessment & Plan (02/29/2024 1:56 PM EDT): Check labs Assessment & Plan (11/29/2023 2:25 PM EDT): Check labs Assessment & Plan (10/26/2023 4:20 PM EST): Will obtain labs from last few years to see if this is new or not Essential jmuvaiptpehq52/08/2024 Assessment & Plan (02/21/2025 6:18 AM EDT): Please check blood pressure daily and record DASH diet Limit caffeine Take medication as directed Contact office if chest pain, pressure, dizziness, shortness of breath, swelling legs Recommend slow position changes Current med: cardizem, valsartan/HCTZ Assessment & Plan (11/21/2024 6:37 AM EDT): Please check blood pressure daily and record DASH diet Limit caffeine Take medication as directed Contact office if chest pain, pressure, dizziness, shortness of breath, swelling legs Recommend slow position changes Current med: cardizem, valsartan/HCTZ Assessment & Plan (10/10/2024 6:56 AM EST): Please check blood pressure daily and record DASH diet Limit caffeine Take medication as directed Contact office if chest pain, pressure, dizziness, shortness of breath, swelling legs Recommend slow position changes Current med: cardizem, valsartan/HCTZ Assessment & Plan (04/26/2024 1:42 PM EDT): Stable on current meds Assessment & Plan (02/29/2024 1:56 PM EDT): Well controlled, no changes in med dose Check labs Assessment & Plan (11/29/2023 2:25 PM EDT): At goal with use of current meds, no changes Cardiac arrhythmia due to premature bqryxpchdbxmwz10/08/2024rimary osteoarthritis of hips, iszvkcviw81/08/2024Other seborrheic igcdsppxv32/08/2024 Type 2 diabetes mellitus without jbcpbztsybgnz01/08/2024 Assessment & Plan (11/21/2024 6:40 AM EDT): Check blood sugars daily, notify if <70 or >200. Monitor for s/s of hypoglycemia (sweaty, dizziness, [...] sugars. Current: valsartan/hydrochlorothiazide, statin, A1c 5.3% 10/10/23 Assessment & Plan (10/10/2024 1:28 PM EST): Check blood sugars daily, notify if <70 or >200. Take medications (pills or insulin) as directed. Monitor for s/s of hypoglycemia (sweaty, dizziness, nausea, vomiting, or shakiness). Watch for increase in thirst, urination, or appetite. Inspect feet frequently monitoring for open wounds , andalso recommend yearly eye exam. Pt should attempt to remain as physically active as chronic conditions allow, as well as trying to follow a diet low in carbohydrates, and simple sugars. Current: valsartan/hydrochlorothiazide, statin, A1c 5.3% 10/10/23 Other mrlvlasxzpokrn59/08/2024 Assessment & Plan (11/21/2024 6:41 AM EDT): On statin therapy Check labs yearly and prn dose changes Resolved Problems ProblemNoted DateDiagnosed DateResolved DateUnspecified dementia, unspecified severity, without behavioral disturbance, psychotic disturbance, mood disturbance, and lacrlvk50 Assessment & Plan (10/10/2024 6:55 AM EST): Currently taking aricept, lives on her own, continues to drive, cooking and paying bills Assessment & Plan (07/04/2024 2:03 PM EDT): Currently taking aricept, lives on her own, continues to drive, cooking and paying bills Acute cystitis without vuhcfnvkj00/KI (acute kidney injury) Encounters DateTypeDepartmentCare StxrNljtfsftayv40/18/2025 1:15 PM EDTAncillary Procedure [facility] [place] [phone] 05/24/2025 1:15 PM EDTOffice Visit [facility] [place] [address] Bryan Brizuela, RADHA S/P total left hip arthroplasty (Primary Dx); Left hip pain05/24/2025amboo flowsheet [facility] [place] [phone] Bryan Brizuela NP 05/24/2025Travelfrom Last 3 Months Immunizations ImmunizationAdministration DatesNext DueInfluenza, Seasonal, Quadrivalent, Dffymezckq10/13/2023,07/02/2022Influenza, injectable, quadrivalent, preservative free06/13/2019Influenza, trivalent, jjuvrbkvre54/29/2024neumococcal Conjugate PCV neumococcal Polysaccharide [id number] Family History Medical HistoryRelationNameCommentsCancerFatherDiabetesFatherHypertensionFather StrokeFatherCancerMotherDiabetesMotherHypertensionMotherRelationNameStatus CommentsFatherDeceasedMotherDeceased Social History Tobacco UseTypesPacks/DayYears UsedDateSmoking Tobacco: NeverSmokeless Tobacco: Never Tobacco Cessation:Counseling Given: Not Answered Alcohol UseStandard Drinks/WeekCommentsNever0 (1 standard drink = 0.6 oz pure alcohol)Humiliation, Afraid, Rape, and Kick questionnaireAnswerDate Recorded Within the last year, have you been afraid of your partner or ex-partner?No 10/26/2023Within the last year, have you been humiliated or emotionally abused in other ways by your partner or ex-partner?No10/26/2023Within the last year, have you been kicked, hit, slapped, or otherwise physically hurt by your partner or ex-partner?No10/26/2023Within the last year, have you been raped or forced to have any kind of sexual activity by your partner or ex-partner?No10/26/2023 Social Connection and Isolation PanelAnswerDate RecordedIn a typical week, how many times do you talk on the phone with family, friends, or neighbors?Once a week10/26/2023How often do you get together with friends or relatives?Never 10/26/2023How often do you attend faith or taoism services?Never10/26/2023o you belong to any clubs or organizations such as faith groups, unions, fraternal or athletic groups, or school groups?No10/26/2023How often do you attend meetings of the clubs or organizations you belong to?Never10/26/2023re you , , , , never , or living with a partner?Bkmsycp2610/26/2023UDIT-CAnswerDate RecordedQ1: How often do you have a drink containing alcohol?Never10/26/2023Q2: How many drinks containing alcohol do you have on a typical day when you are drinking?Patient does not drink 10/26/2023Q3: How often do you have six or more drinks on one occasion?Never 10/26/2023Overall Financial Resource Strain (CARDIA)AnswerDate RecordedHow hard is it for you to pay for the very basics like food, housing, medical care, and heating?Not hard at all10/26/2023HQ-2AnswerDate RecordedPatient Health Questionnaire-2 [facility]trp716[facility] [place] of Occup[facility] Health - Occupational Stress QuestionnaireAnswerDate RecordedDo you feel stress - tense, restless, nervous, or anxious, or unable to sleep at night because yourmind is troubled all the time - these days?Only a rudxto0910/26/2023Exercise Vital Sign AnswerDate RecordedOn average, how many days per week do you engage in moderate to strenuous exercise (like a brisk walk)?0 days10/26/2023On average, how many minutes do you engage in exercise at this level?0 min10/26/2023Hunger Vital Sign AnswerDate RecordedWithin the past 12 months, you worried that your food would run out before you got the money to buymore.Never true10/26/2023Within the past 12 months, the food you bought just didn't last and you didn't have money to get more.Never true10/26/2023RAPARE - TransportationAnswerDate RecordedIn the past 12 months, has lack of transportation kept you from medical appointments or from getting medications?No10/26/2023In the past 12 months, has lack of transportation kept you from meetings, work, or from getting things needed for daily living?No10/26/2023Housing Stability Vital SignAnswerDate RecordedIn the last 12 months, was there a time when you were not able to pay the mortgage or rent on time?No10/26/2023In the last 12 months, how many places have you lived?1 10/26/2023In the last 12 months, was there a time when you did not have a steady place to sleep or slept in [facility] (including now)?No4Comments UnknownSex and Gender InformationValueDate RecordedSex Assigned at BirthNot on fileLegal BeaYxdnmi83/15/2023 7:13 PM EDTGender IdentityNot on fileSexual OrientationNot on file Last Filed Vital Signs Vital SignReadingTime TakenCommentsBlood Lgzbtees593/7406 1:04 PM EDT Imoes858002/21/2025 1:04 PM QZODrldzfxwehm83.1 ??C (98.7 ??F)02/21/2025 1:04 PM EDTRespiratory Iaxt184902/21/2025 1:04 PM EDTOxygen Jjnzpauzlm90%02/21/2025 1:04 PM EDTInhaled Oxygen Concentration--Zwbmmi63.2 kg (157 lb)02/21/2025 1:04 PM EDT Bzchpp308.8 cm (5' 4.5 )11/21/2024 1:02 PM EDTBody Mass Index26.53011/21/2024 1:02 PM EDT Plan of Treatment DateTypeDepartmentCare Team (Latest Contact Info)Dismorouyzy33/26/2026 2:15 PM ESTOffice Visit [facility] [address] [place] [address] Marianne Venegas MD [address] [place] [address] Health MaintenanceDue DateLast DoneCommentsCOVID-19 Vaccine ( season) , 07/02/2022, 07/15/2021, Additional history existsInfluenza Vaccine (#1), 06/18/2023, 07/02/2022, Additional history existsPneumococcal Vaccine: 65+ CcyxnCjalzvumy20/02/2024, 02/07/2018 Procedures Procedure NamePriorityDate/TimeAssociated DiagnosisCommentsXR HIP 2 OR 3 VW LEFT Qmcuhte8205/24/2025 1:14 PM EDT Left hip pain from Last 3 Months Results * XR hip left 2 or 3 views (05/24/2025 1:14 PM EDT)Anatomical RegionLaterality ModalityLower Extremities, HipLeftRadiographic ImagingSpecimen (Source) Anatomical Location / LateralityCollection Method / VolumeCollection Time Received Time Narrative 05/24/2025 1:25 PM EDT Imaging Result: 05/24/2025: AP and lateral of left hip showed acceptable position and alignment of left total hip arthroplasty. ??There was no evidence of loosening of the acetabular cup or femoral stem. ??Femoral head was well centered in the acetabular liner without evidence of asymmetric or accelerated wear. ??Retained drill bit head noted. There was no gross evidence of fracture and/or dislocation. ??Impression: Unremarkable left total hip arthroplasty. Bryan Brizuela APRN, NP-C Authorizing ProviderResult TypeResult StatusGrant Williams Brizuela NPIMG XR PROCEDURES Final Result from Last 3 Months Insurance Care Teams Team MemberRelationshipSpecialtyStart DateEnd Date Soy Walton MD PCP - GeneralFamily Medicine05/22/25 Chloe Colmenares NP Nurse PractitionerFamily Noatbtsr73/29/24
--- OUTSIDE RECORDS SUMMARY | 2025-08-21 14:01 | XMS_ITS | Clinical Summary ---
Author Organization [employer] [facility] tem Address [id number] [address] [place] [address] Care Team Providers Care Mill Roll Rewinder Name Role Phone SymoneChloe muñoz Inocente LONGORIA-PROCESS ENGINEERING INTERN Primary Care Provider Allergies Active AllergyReactionsCriticalityNoted AqpyEmhahrdaUexcjs41/20/2020 BURNING IN HER SKIN. DOES NOT RECALL HAVING A RASH BlwdqHlusAsg05/11/2024Pollen NvgycktiXha97/20/2020 Medications MedicationSigDispense QuantityRefillsLast FilledStart DateEnd DateStatus dilTIAZem CD (CARDIZEM CD) 120 mg 24 hr capsule Take 1 capsule (120 mg total) by mouth in the morning.Active valsartan-hydroCHLOROthiazide (DIOVAN-HCT) 80-12.5 mg per tablet Take 1 tablet by mouth in the morning.Active donepeziL (ARICEPT) 5 mg tablet Take 1 tablet (5 mg total) by mouth nightly.Active cxxwyizt-vkti-IL-calcium &mins (THERAGRAN-M) 9 mg iron-400 mcg tablet Take 1 tablet by mouth daily.Active acetaminophen (TYLENOL EXTRA STRENGTH) 500 mg tablet Take 1 tablet (500 mg total) by mouth every 6 (six) hours as needed for pain. Active Active Problems ProblemNoted DateDiagnosed DatePreop joctmhzdfsc66/10/2024 Resolved Problems ProblemNoted DateDiagnosed DateResolved DatePrimary osteoarthritis of right hip Family History Medical HistoryRelationNameCommentsCancerFatherDiabetesFatherCOPDMotheremphysema CancerMotherDiabetesMotherRelationNameStatusCommentsFatherDeceasedMotherDeceased Social History Tobacco UseTypesPacks/DayYears UsedDateSmoking Tobacco: NeverSmokeless Tobacco: NeverAlcohol UseStandard Drinks/WeekCommentsYes0 (1 standard drink = 0.6 oz pure alcohol)[facility] UtilitiesAnswerDate RecordedIn the past 12 months has the electric, gas, oil, or water company threatened to shut off services in your home?No05/17/2024Social Connection and Isolation PanelAnswerDate RecordedIn a typical week, how many times do you talk on the phone with family, friends, or neighbors?Twice a week04/25/2020How often do you get together with friends or relatives?Once a week04/25/2020How often do you attend hinduism or bahai services?More than 4 times per year04/25/2020Do you belong to any clubs or organizations such as hinduism groups, unions, fraternal or athletic groups, or school groups?No04/25/2020How often do you attend meetings of the clubs or organizations you belong to?Never04/25/2020Are you , , , , never , or living with a partner?Lbrbhrm2904/25/2020AUDIT-C AnswerDate RecordedQ1: How often do you have a drink containing alcohol?Monthly or less04/25/2020Q2: How many drinks containing alcohol do you have on a typical day when you are drinking?1 or Q3: How often do you have six or more drinks on one occasion?Never04/25/2020Overall Financial Resource Strain (CARDIA) AnswerDate RecordedHow hard is it for you to pay for the very basics like food, housing, medical care, and heating?Not hard at all04/25/2020PHQ-2AnswerDate RecordedTotal Fljst075[facility] - Occupational Stress QuestionnaireAnswerDate RecordedDo you feel stress - tense, restless, nervous, or anxious, or unable to sleep at night because yourmind is troubled all the time - these days?To some tinuoq3204/25/2020Exercise Vital Sign AnswerDate RecordedOn average, how many days per week do you engage in moderate to strenuous exercise (like a brisk walk)?0 days04/25/2020On average, how many minutes do you engage in exercise at this level?0 min04/25/2020PRAPARE - TransportationAnswerDate RecordedIn the past 12 months, has lack of transportation kept you from medical appointments or from getting medications?No 05/17/2024In the past 12 months, has lack of transportation kept you from meetings, work, or from getting things needed for daily living?No05/17/2024 Housing InstabilityAnswerDate RecordedAre you worried or concerned that in the next two months you may not have stable housing that you own, rent or stay in as a part of a household?No4ChildcareAnswerDate RecordedDo problems getting early childhood coordinator make it difficult for you to work or study?No04/25/2020 EmploymentAnswerDate RecordedDo you need help finding a local career center and/or a training program?No04/25/2020Hunger ScreeningAnswerDate RecordedWithin the past 12 months we worried whether our food would run out before we got money to buy more.Never True05/17/2024Within the past 12 months the food we bought just didn't last and we didn't have money to get more.Never True05/17/2024 Purpose - LifeAnswerDate RecordedPurpose and direction in chtbYrougcy50/11/2021 CommentsNoSex and Gender InformationValueDate RecordedSex Assigned at BirthNot on fileLegal LtjHxpgsr09/06/2015 12:11 PM EDTGender IdentityNot on file Sexual OrientationNot on file Last Filed Vital Signs Vital SignReadingTime TakenCommentsBlood Gcptgyex950/6509 7:57 AM EDT Exsnh5766 7:57 AM VXBAbjitwvftos45.8 ??C (98.2 ??F)05/19/2024 7:57 AM EDTRespiratory Gjbn133705/19/2024 7:57 AM EDTOxygen Wmnkdrvtvt89%05/19/2024 7:57 AM EDTInhaled Oxygen Concentration--Evaiem31.4 kg (142 lb)05/17/2024 9:58 AM EDT Qaacgs528.8 cm (5' 4.5 )05/17/2024 9:58 AM EDTBody Mass Uhzsx682505/17/2024 9:58 AM EDT Plan of Treatment Health MaintenanceDue DateLast DoneCommentsDepression Tskiwcfqr71/13/1953 DTaP,Tdap and Td Vaccines (1 - Tdap)1957Zoster (Shingles) Vaccine (1 of 2) 1988Fall Risk Mlbrmptcn64/13/2004RSV ( or age 60+ yrs) (1 - 1-dose 75+ series)2013COVID-19 Vaccine (6 - 2024- season), 07/02/2022, 07/15/2021, Additional history existsInfluenza Sfanxjw7105/07/2025 06/18/2023, 07/02/2022, 06/13/2019Tobacco Csnvlhabh06 Goals GoalPatient Goal TypeAssociated ProblemsRecent ProgressPatient-Stated?Author Home Flor Yuan LSW Note: Evaluation of progress towards goal: Safe dc transition from hospital to home with family support and [facility] orthopedic PT services Medical Devices ImplantedTypeAreaManufacturerDevice IdentifierShelf Expiration DateModel / Serial / LotLinr Actb 52mm 36mm Altrx Hip - Sna - [id number] Implanted:Qty: 1 on 04/25/2020 by Alebr Moctezuma DO at [facility] ImplantRight: HipJJ UGXQURPYRJVC02/31/[id number] / NA / [id number] Actb 52mm Pncl Sect Hip - Sna - [id number] Implanted:Qty: 1 on 04/25/2020 by Alber Moctezuma DO at [facility] ImplantRight: HipJJ WSCUKZZCPEQK25/30/[id number] / NA / [id number] Fem 150mm 12mm Crl Amt Ti - Sna - [id number] Implanted:Qty: 1 on 04/25/2020 by Alber Moctezuma DO at [facility] ImplantRight: HipJJ [id number] / NA / [id number] Fem 36mm -2mm 08/19 Tpr - Sna - [id number] Implanted:Qty: 1 on 04/25/2020 by Alber Moctezuma, DO at [facility] ImplantRight: HipJ HEAJTRRPYZLC14/31/[id number] / NA / [id number] Hip Mop All Sz Construct Rpl 37166 - [id number] Implanted:Qty: 1 on 05/17/2024 by Alber Moctezuma DO at [facility] ImplantLeft: HipJJ [id number] / / Cup Actb 54mm Pncl Sect Hip - Sna - [id number] Implanted:Qty: 1 on 05/17/2024 by Alber Moctezuma DO at [facility] ImplantLeft: HipJJ [id number] / NA / [id number] Actb 54mm 36mm Ntrl Altrx - Sna - [id number] Implanted:Qty: 1 on 05/17/2024 by Alber Moctezuma DO at [facility] ImplantLeft: HipJJ [id number] / NATALYA / [id number] Fem 150mm 12mm Crl Amt Ti - Sna - [id number] Implanted:Qty: 1 on 05/17/2024 by Alber Moctezuma DO at [facility] ImplantLeft: HipJJ [id number] / NA / [id number] Fem 36mm +1.5mm 08/19 - Sna - [id number] Implanted:Qty: 1 on 05/17/2024 by Alber Moctezuma DO at [facility] ImplantLeft: HipJJ [id number] / NA / [id number] Hl Drlc Pncl Hip Mrthn - Sna - [id number] Implanted:Qty: 1 on 04/25/2020 by Alber Moctezuma DO at [facility] ImplantRight: HipJJ WAWWUINVFYTD17/28/[id number] / NA / [id number] Hl Drlc Pncl Hip Mrthn - Sna - [id number] Implanted:Qty: 1 on 05/17/2024 by Alber Moctezuma DO at [facility] ImplantLeft: Hip [id number]/30/2033 / NA / [id number]-8/2/2006 Implanted:09/07/2005 (Quantity not on file)RodBackScr Hip Canc Cnn Gription 15mm - Sna - [id number] Implanted:Qty: 1 on 04/25/[facility]JJ HDBTJBQGYLMU22/30/[id number] / NA / [id number] Hip Canc Cnn Gription 30mm - Sna - [id number] Implanted:Qty: 1 on 04/25/2020 [facility]: HipJJ GASOLDULOKOQ51/31/[id number] / NA / [id number] Hip Canc Cnn Gription 30mm - Sna - [id number] Implanted:Qty: 1 on 05/17/2024 by [facility]: HipJJ [id number]/31/[id number] / NA / [id number] Hip Canc Cnn Gription 30mm - Sna - [id number] Implanted:Qty: 1 on 05/17/2024 by [facility]: HipJJ [id number]/31/[id number] / NA / [id number]axpeuGhngkk IdentifierShelf Expiration Date Model / Serial / LotImpl Hip Mop All Sz Construct Rpl 99280 - Sna - [id number] [facility] HipJJ [id number] / NA / NA Insurance * Guarantor: Sandra Rodrigues AAccount TypeRelation to PatientDate of BirthPhone Billing AddressPersonal/CmgvmmPxdq73/13/1941 [id number] [facility] [address] [place] [phone] Advance Directives * Full Code (Latest Code Status on File) Date ActivatedDate InactivatedComments05/16/2024 12:51 PM05/19/2024 6:29 PM * Full Code Date ActivatedDate InactivatedComments04/25/2020 12:34 PM04/27/2020 4:26 PM Care Teams Team MemberRelationshipSpecialtyStart DateEnd Date Chloe Colmenares, MANAGER MAIL-PROCESS ENGINEERING INTERN [place] [address] PCP - GeneralNurse Practitioner05/15/24
[2025-08-21 14:25] LABS: Hematocrit 37.2 % (36.0-48.0); Hemoglobin 12.8 g/dL (12.0-16.0); Immature Granulocytes Abs Auto 0.02 10^3/uL (0.00-0.03); Immature Granulocytes Pct Auto 0.4 % (0.0-0.5); Lymphocytes Absolute Auto 1.3 10^3/uL (1.2-3.8); Mean Corpuscular HGB Conc 34.4 g/dL (29.9-35.2); Mean Corpuscular Hemoglobin 31.9 pg (26.7-34.0); Mean Corpuscular Volume 92.8 fL (81.0-99.0); Platelet Count 287 10^3/uL (150-450); Red Blood Count 4.01 10^6/uL (4.20-5.40); White Blood Count 4.9 10^3/uL (4.0-11.0)
[2025-08-21 15:10] LABS: Alanine Aminotransferase 202 U/L (14-59); Albumin Globulin Ratio 1.0; Albumin Level 3.8 g/dL (3.4-5.0); Alkaline Phosphatase 245 U/L (46-116); Anion Gap 10.3; Aspartate Amino Transferase 118 U/L (15-37); Blood Urea Nitrogen 24.0 mg/dL (7.0-18.0); Calcium 9.7 mg/dL (8.5-10.1); Carbon Dioxide 31.1 mmol/L (21.0-32.0); Chloride 105 mmol/L (98-107); Estimated GFR (African America 39 (>=60 mL/min/1.73m^2); Estimated GFR (Non-African Ame 32 (>=60 mL/min/1.73m^2); Globulin 3.7 g/dL; Glucose 95 mg/dL (74-106); Potassium 4.4 mmol/L (3.5-5.1); Sodium 142 mmol/L (136-145); Total Protein 7.5 g/dL (6.4-8.2)
== END 2025-08-21 13:59 | disposition home or self-care (01) ==
LOC: LAB 13:59
PROVIDERS: PCP Nurse Practitioner; Visit Provider Nurse Practitioner
DX: E11.22 Type 2 diabetes mellitus with diabetic chronic kidney disease (principal)
CPT/HCPCS: 36415; 80053; 85025